=== PATIENT | male | born 1945 | race Caucasian/White ===

== ENCOUNTER → 2017-10-01 13:48 | Outpatient (CLI) | payer MEDICARE, OTHER, SELFPAY ==
[2017-10-01 16:27] LABS: ALB/GLOB Ratio 1.1 RATIO (0.9-2.4); AST(SGOT) 18 U/L (15-37); Alanine Aminotransfer ALT/SGPT 26 U/L (16-61); Albumin, Serum 3.5 g/dL (3.2-5.0); Alkaline Phosphatase 95 U/L (45-117); Anion Gap 7 (5-15); BUN 13 mg/dL (7-18); BUN/Creat Ratio 15.3 RATIO (10-20); Calcium,Total 8.8 mg/dL (8.5-10.1); Chloride 105 mmol/L (98-107); Cholesterol 90 mg/dL (200); Creatinine, Serum 0.85 mg/dL (0.70-1.30); EST Glomerular Filtration Rate 94 mL/min (>60); Est Glom Filt Rate - Afr Amer 114 mL/min (>60); Globulin 3.2 g/dL (2.2-4.2); Glucose 75 mg/dL (74-106); High Density Lipoprotein 35 mg/dL; Potassium 4.5 mmol/L (3.5-5.1); Protein, Total 6.7 g/dL (6.4-8.2); Sodium Level 141 mmol/L (136-145); Triglycerides 242 mg/dL; Very Low Density Lipoprotein 48 mg/dL (5-40)
== END ==
PROVIDERS: Family Provider Family Medicine; PCP Family Medicine; Visit Provider Family Medicine
DX: I25.2 Old myocardial infarction (principal); I10 Essential (primary) hypertension
CPT/HCPCS: 36415; 80053; 80061

== ENCOUNTER → 2018-04-02 07:43 | Outpatient (CLI) | payer MEDICARE, OTHER, SELFPAY ==
[2018-04-01 10:19] VITALS: BMI 24.8
[2018-04-02 09:06] LABS: Cholesterol 102 mg/dL (200); High Density Lipoprotein 39 mg/dL; Triglycerides 78 mg/dL; Very Low Density Lipoprotein 16 mg/dL (5-40)
--- OUTSIDE RECORDS SUMMARY | 2018-06-06 14:44 | XMS RPT_ITS ---
:1945 Author Organization [facility] Care Team Providers Name Role Phone Humphrey Maher Attending Unavailable Brown, Humphrey Referring Unavailable Brown, Humphrey Attending Unavailable Brown, Humphrey Referring Unavailable Brown, Humphrey Primary Care Unavailable Jelly Jin Attending Unavailable Tyson Leroy Attending Unavailable Brown, Humphrey Referring Unavailable Brown, Humphrey Primary Care Unavailable Brown, Humphrey Attending Unavailable Brown, Humphrey Referring Unavailable Brown, Humphrey Primary Care Unavailable Brown, Humphrey Attending Unavailable Brown, Humphrey Referring Unavailable Brown, Humphrey Primary Care Unavailable PROBLEMS PROBLEMS DATE TYPE CONDITION / CODE ATTENDING STATUS SOURCE 04/02/2018 Unknown I25.2 - Old Brown, Humphrey Active [facility] I25.2(ICD-10) Repository 10/01/2017 Unknown I10 - Essential Brown, Humphrey Active [facility] (primary) Community hypertension / Hospital I10(ICD-10) Repository PROCEDURES PROCEDURES No Procedure Records FoundRESULTS RESULTS LIPID PROFILE Collected: 04/02/2018 Status: F Source: [facility] 7:48 AM [facility] REPOSITORY TYPE CODE TESTS RESULT OUT OF RANGE REFERENCE UNITS LAB L501.4900 200 mg/dL Normal CHOL 102 Result Comment: <200 mg/dL Desirable 200-240 mg/dL Borderline >240 mg/dL High Risk LAB L501.5000 mg/dL Normal TRIG 78 Result Comment: The drugs N-Acetylcysteine and Metamizole may falsely depress this assay. Serum Triglycerides Reference Interval Normal <150 mg/dL Borderline high 150 - 199 mg/dL High 200 - 499 mg/dL Very High > or = 500 mg/dL LAB L501.6400 mg/dL Low HDL 39 Result Comment: The drugs N-Acetylcysteine and Metamizole may falsely depress this assay. Reference Range HDL <40 mg/dL Low HDL Cholesterol HDL >or= 60 mg/dL High HDL Cholesterol LAB L501.6500 0-130 mg/dL Normal LDL 47 LAB L501.6600 5-40 mg/dL Normal VLDL 16 Performed By: #### L500.4100 #### [facility] [address] [place], [address] INTERNAL MEDICINE Observed: 04/01/2018 Status: F Source: [place] OFFICE VISIT 12:27 PM [facility] REPOSITORY [facility] [address] [place] [address] [place] [address] OFFICE VISIT Date of Service: 04/01/18 MR#: [id number] Acct: [id number] Name: SERGIO CLIFFORD Rep #: [id number] : 1945 Provider: Humphrey Maher DO Age/Sex: 72/M Location: [facility] Status: Signed Intake Vital Signs04/01/18 Height 5 ft 10 in 04/01/18 Weight: 173 lb 04/01/18 Body Mass Index (BMI) 24.8 04/01/18 Blood Pressure 137/72 H 04/01/18 Blood Pressure Location Lt brachial Intake Visit Reasons: 6 MO FU Chief Complaint: 6 Mo FU Allergies No Known Allergies Allergy (Unverified 04/01/18 10:20) Medications lisinopril 10 mg tablet 10 mg PO QDAY #90 tab 05/08/17 [Rx Confirmed 04/01/18] aspirin 325 mg tablet,delayed release 325 mg PO QDAY 05/22/17 [History Confirmed 04/01/18] clopidogrel 75 mg tablet 75 mg PO QDAY tab 05/22/17 [History Confirmed 04/01/18] metoprolol tartrate 25 mg tablet 25 mg PO BID #180 tab 05/22/17 [Rx Confirmed 04/01/18] pantoprazole 40 mg tablet,delayed release 40 mg PO QDAY 05/22/17 [History Confirmed 04/01/18] albuterol sulfate HFA 90 mcg/actuation aerosol inhaler 2 puff INHALATION Q6H PRN 07/20/17 [History Confirmed 04/01/18] nitroglycerin 0.4 mg sublingual tablet 0.4 mg SUBLINGUAL Q5- 15M PRN #20 tab 12/30/17 [Rx Confirmed 04/01/18] atorvastatin 40 mg tablet 40 mg PO QDAY #90 tab 01/04/18 [Rx Confirmed 04/01/18] allopurinol 300 mg tablet 300 mg PO QDAY #90 tab 01/25/18 [Rx Confirmed 04/01/18] cholecalciferol (vitamin D3) 1,000 unit capsule 3,000 unit PO DAILY cap 04/01/18 [History Confirmed 04/01/18] PFSH Medical History Arthritis (Chronic) 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) 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) COPD (chronic obstructive pulmonary disease) (Chronic) Hypertension (Chronic) Hyperlipidemia (Chronic) Surgical History Presence of stent in coronary artery (Chronic) S/P hernia repair (Acute) History of brain surgery (Chronic) History of left knee surgery (Chronic) History of tonsillectomy (Chronic) Postsurgical percutaneous transluminal coronary angioplasty (PTCA) status (Chronic) H/O local excision of skin lesion (Resolved) Family History Father CVA (cerebral vascular accident) Mother CAD (coronary artery disease) Hx of CABG CHF (congestive heart failure) S/P MVR (mitral valve replacement) Brother COPD (chronic obstructive pulmonary disease) Diabetes Cancer lung Grandfather Colon cancer Social History Smoking Status: Former smoker how long ago did patient quit smokin alcohol intake: never substance use type: does not use what type of physical activity do you participate in: walking frequency: daily HPI HPI Chief Complaint: 6 Mo FU Details: SERGIO CLIFFORD, is a 72 M who presents to the office today for follow up on his medications. ROS Const Constitutional: No chills, fatigue, fever(s), frequent falls, malaise, weakness, sleep problems or change in appetite Eyes Eyes: No blurry vision, change in vision, double vision, discharge or visual disturbances ENT ENT: No abnormal hearing, ear pain, ear pressure, tinnitus or dizziness/vertigo Resp Respiratory: No cough, shortness of breath or wheezing Cardio Cardiology: No chest pain at rest, chest pain with exertion, shortness of breath, dyspnea on exertion, generalized swelling, irregular heart rhythm, lightheadedness, orthopnea, fast heart rate or palpitations Gastro GI: No abdominal pain, change in bowel habits, constipation, diarrhea, nausea/dyspepsia or vomiting Genitourinary Male: No difficulty urinating, burning urination, painful urination, urinary incontinence, urinary frequency, urinary urgency, urinary hesitancy, urinary retention, blood in urine, Frequent nighttime urination/ nocturia, sexual problems, testicle lump or testicle pain Musc Musculoskeletal: No joint pain, back pain, joint swelling, limited range of motion, numbness or tingling Skin Skin: No change in skin color, itching, rash or wounds Breast Breast: No breast lump or breast pain Neuro Neurology: No frequent falls, weakness, visual disturbances, abnormal hearing, numbness, tingling, unsteady gait/balance, dizziness, loss of vision or memory loss Psych Psychiatric: No change in appetite, No memory loss, No anxiety, No depression, No Thoughts of harming yourself/Others Endo Endocrine: No fatigue, heat intolerance, increased thirst/drinking, increased hunger or increased urination Aller/Imm Allergy/Immunologic: No wheezing, itchy eyes or seasonal allergy symptoms Raúl/Lymp Hematologic/Lymphatic: No easy bleeding, easy bruising or enlarged lymph nodes Exam Const General: cooperative, healthy appearing Nutritional Appearance: average body habitus Orientation: oriented x3 Neck Neck: no lymphadenopathy Neck mass: No Thyroid: thyroid normal Resp Effort AND Inspection: symmetric chest movement, normal respiratory effort Auscultation: Bilateral: Clear to Auscultation Cardio Rate: regular rate Rhythm: regular rhythm Musc Thoracic/Lumbar Spine: thoracic and lumbar spine normal to inspection, thoraco-lumbar ROM normal Other: muscle cramps are better, [facility]. Skin General: no rashes or lesions noted Extrem General: no clubbing, cyanosis or edema Psych Appearance: grossly normal Assessment AND Plan Problems 1. Presence of stent in coronary artery Z95.5 PTCA/PETER to LAD and prox to mid LCX 04/11/10; PTCA/PETER of the patent pre existing stent in the prox RCA 01/22/2011 2. COPD (chronic obstructive pulmonary disease) J44.9 3. Essential hypertension I10 4. Hyperlipidemia, unspecified hyperlipidemia type E78.5 5. Muscle cramps at night R25.2 Plan This patient was here for follow-up exam and medication renewal. [facility] They are working up his leg cramps and numbness by first checking his circulation it was okay and I believe the next test he is going through is an EMG to see if the problem is coming from the back which on physical examination I doubt. Actually the patient is doing well lipid screen was ordered medicines were renewed he will be rechecked on a routine six-month basis unless something else becomes a problem. Orders Orders: Plan Detail Follow Up 6 Months Coding Level of Care Code Off vis,est,level 3 Diagnoses Presence of stent in coronary artery Z95.5 COPD (chronic obstructive pulmonary disease) J44.9 Essential hypertension I10 Hypertension type: essential hypertension Hyperlipidemia, unspecified hyperlipidemia type E78.5 Hyperlipidemia type: unspecified Muscle cramps at night R25.2 04/01/18 1227 <Electronically signed by Humphrey Maher DO> Date Humphrey Maher DO Cosigner Signature: Date (if applicable) CC: COMPREHENSIVE METABOLIC Collected: 10/01/2017 Status: F Source: [facility] GOMES 1:53 PM [facility] REPOSITORY TYPE CODE TESTS RESULT OUT OF RANGE REFERENCE UNITS LAB L501.0100 74-106 mg/dL Normal GLU 75 Result Comment: Please note revised GLUCOSE reference range effective 2017. LAB L501.1000 7-18 mg/dL Normal BUN 13 LAB L501.1100 0.70-1.30 mg/dL Normal CREAT,SERUM 0.85 Result Comment: The validity of the calculated GFR AND GFRAA in patients over 70 years has not been determined. Clinical correlation is essential. LAB L501.1110 >60 mL/min Normal EST GFR 94 Result Comment: Non- GFR Calc LAB L501.1115 >60 mL/min Normal EST GFR - AA 114 Result Comment: GFR Calc LAB L501.1300 10-20 RATIO Normal BUN/CRE 15.3 LAB L501.1500 6.4-8.2 g/dL T Normal PROT 6.7 LAB L501.1800 3.2-5.0 g/dL Normal ALB 3.5 LAB L501.1950 2.2-4.2 g/dL Normal GLOB 3.2 LAB L501.2000 0.9-2.4 RATIO Normal A/G 1.1 LAB L501.2200 8.5-10.1 mg/dL CA Normal 8.8 LAB L501.4100 15-37 U/L Normal AST 18 LAB L501.4305 45-117 U/L Normal ALK P 95 LAB L501.4405 16-61 U/L Normal ALT 26 LAB L501.4600 0.20-1.00 mg/dL T Normal BILI 0.30 LAB L501.5300 136-145 mmol/L NA Normal 141 LAB L501.5600 3.5-5.1 mmol/L K Normal 4.5 LAB L501.5900 98-107 mmol/L CL Normal 105 LAB L501.6100 21.0-32.0 mmol/L Normal CO2 29.0 LAB L501.6200 5-15 Normal GAP 7 Performed By: #### L500.4050, L500.4100 #### [facility] [address] [place], [address] LIPID PROFILE Collected: 10/01/2017 Status: F Source: [place] 1:53 PM [facility] REPOSITORY TYPE CODE TESTS RESULT OUT OF RANGE REFERENCE UNITS LAB L501.4900 200 mg/dL Normal CHOL 90 Result Comment: <200 mg/dL Desirable 200-240 mg/dL Borderline >240 mg/dL High Risk LAB L501.5000 mg/dL High TRIG 242 Result Comment: The drugs N-Acetylcysteine and Metamizole may falsely depress this assay. Serum Triglycerides Reference Interval Normal <150 mg/dL Borderline high 150 - 199 mg/dL High 200 - 499 mg/dL Very High > or = 500 mg/dL LAB L501.6400 mg/dL Low HDL 35 Result Comment: The drugs N-Acetylcysteine and Metamizole may falsely depress this assay. Reference Range HDL <40 mg/dL Low HDL Cholesterol HDL >or= 60 mg/dL High HDL Cholesterol LAB L501.6500 0-130 mg/dL Normal LDL 7 LAB L501.6600 5-40 mg/dL High VLDL 48 Performed By: #### L500.4050, L500.4100 #### [facility] [address] [place], [address] INTERNAL MEDICINE Observed: 10/01/2017 Status: F Source: [place] OFFICE VISIT 1:33 PM [facility] REPOSITORY [facility] [address] [place] [address] [place] [address] OFFICE VISIT Date of Service: 10/01/17 MR#: [id number] Acct: [id number] Name: SERGIO CLIFFORD Rep #: [id number] : 1945 Provider: Humphrey Maher DO Age/Sex: 72/M Location: [facility] Status: Signed Intake Vital Signs10/01/17 Height 5 ft 10 in Intake Visit Reasons: est care Chief Complaint: well check Is patient in pain?: No Allergies No Known Allergies Allergy (Unverified 07/20/17 15:29) Medications lisinopril 10 mg tablet 10 mg PO QDAY #90 tab 05/08/17 [Rx Confirmed 07/20/17] aspirin 325 mg tablet,delayed release 325 mg PO QDAY 05/22/17 [History Confirmed 07/20/17] clopidogrel 75 mg tablet 75 mg PO QDAY tab 05/22/17 [History Confirmed 07/20/17] metoprolol tartrate 25 mg tablet 25 mg PO BID #180 tab 05/22/17 [Rx Confirmed 07/20/17] nitroglycerin 0.4 mg sublingual tablet 0.4 mg SUBLINGUAL Q5- 15M PRN 05/22/17 [History Confirmed 07/20/17] pantoprazole 40 mg tablet,delayed release 40 mg PO QDAY 05/22/17 [History Confirmed 07/20/17] atorvastatin 40 mg tablet 40 mg PO QDAY #90 tab 07/11/17 [Rx Confirmed 07/20/17] albuterol sulfate HFA 90 mcg/actuation aerosol inhaler 2 puff INHALATION Q6H PRN 07/20/17 [History Confirmed 07/20/17] allopurinol 300 mg tablet 300 mg PO QDAY #90 tab 07/28/17 [Rx] PFSH Medical History Arthritis (Chronic) 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) Presence of stent in coronary artery (Chronic) 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) COPD (chronic obstructive pulmonary disease) (Chronic) Hypertension (Chronic) Hyperlipidemia (Chronic) History of left knee surgery (Chronic) Surgical History S/P hernia repair (Acute) History of brain surgery (Chronic) History of tonsillectomy (Chronic) Postsurgical percutaneous transluminal coronary angioplasty (PTCA) status (Chronic) H/O local excision of skin lesion (Resolved) Family History Father CVA (cerebral vascular accident) Mother CAD (coronary artery disease) Hx of CABG CHF (congestive heart failure) S/P MVR (mitral valve replacement) Brother COPD (chronic obstructive pulmonary disease) Diabetes Cancer lung Grandfather Colon cancer Social History Smoking Status: Former smoker how long ago did patient quit smokin alcohol intake: never substance use type: does not use what type of physical activity do you participate in: walking frequency: daily HPI HPI Chief Complaint: well check Details: SERGIO CLIFFORD, is a 72 M who presents to the office today for a check up, he has had a lot of muscle cramps in the AM when he gets up from bed. ROS Const Constitutional: No weight change, body ache, chills, fatigue, sleep problems, fever(s), change in appetite, snoring, weakness, frequent falls, headache(s) or excessive sweating Eyes Eyes: No change in vision, eye pain, light sensitivity or blurry vision ENT ENT: No headache(s), abnormal hearing, ear pain, tinnitus, nasal congestion, sore throat or neck pain Resp Respiratory: No snoring, cough, shortness of breath or wheezing Cardio Cardiology: No excessive sweating, chest pain at rest, chest pain with exertion, shortness of breath, dyspnea on exertion, palpitations, orthopnea or lightheadedness Gastro GI: No abdominal pain, change in bowel habits, constipation, diarrhea, vomiting, nausea/dyspepsia or cramping Genitourinary Male: No painful urination, urinary incontinence, urinary frequency, urinary urgency, blood in urine, testicle pain or other Musc Musculoskeletal: Positive for joint pain (shoulders), numbness (feet) and muscle cramps (in the legs every morning. ); no neck pain, abnormal walking, back pain, limited range of motion or tingling Skin Skin: No redness, dry skin, itching, lesions, wounds or rash Neuro Neurology: Positive for numbness (feet); no weakness, frequent falls, headache(s), abnormal hearing, abnormal walking, tingling, abnormal speech, dizziness or memory loss Psych Psychiatric: No change in appetite, No memory loss, No anxiety, No depression, No Thoughts of harming yourself/Others Endo Endocrine: No fatigue, excessive sweating, cold intolerance, increased thirst/drinking, heat intolerance, flushing or increased hunger Aller/Imm Allergy/Immunologic: No wheezing, itchy eyes, hives or seasonal allergy symptoms Raúl/Lymp Hematologic/Lymphatic: No easy bleeding, easy bruising or enlarged lymph nodes Exam Const General: cooperative, healthy appearing Nutritional Appearance: average body habitus Orientation: oriented x3 Neck Neck: no lymphadenopathy Neck mass: No Thyroid: thyroid normal Resp Effort AND Inspection: symmetric chest movement, normal respiratory effort Auscultation: Bilateral: Clear to Auscultation Cardio Rate: regular rate Rhythm: regular rhythm Musc Thoracic/Lumbar Spine: thoracic and lumbar spine normal to inspection, thoraco-lumbar ROM normal Other: Non-specific pain the the right ear, Lots of muscle cramps Skin General: no rashes or lesions noted Extrem General: no clubbing, cyanosis or edema Psych Appearance: grossly normal Assessment AND Plan Problems 1. Essential hypertension I10 2. Hyperlipidemia, unspecified hyperlipidemia type E78.5 3. COPD (chronic obstructive pulmonary disease) J44.9 4. Arthritis M19.90 5. Muscle cramps R25.2 6. Presence of stent in coronary artery Z95.5 PTCA/PETER to LAD and prox to mid LCX 04/11/10; PTCA/PETER of the patent pre existing stent in the prox RCA 01/22/2011 Plan This patient was seen today for checkup. His only significant complaint is severe muscle spasms of his legs but only when he gets up in the morning and start stretching once he moves he does not have that problem. He also also complained about some sharp stabbing pains in the right ear area but on exam I think that is probably simply related to some cervical spine problems. Labs were ordered to evaluate possible electrolyte disturbances causing muscle spasms and I will let him know what those results entailed other than that he is to continue on the same medication. Orders Orders: Plan Detail Follow Up 6 Months Coding Level of Care Code Off vis,est,level 3 Diagnoses Essential hypertension I10 Hypertension type: essential hypertension Hyperlipidemia, unspecified hyperlipidemia type E78.5 Hyperlipidemia type: unspecified COPD (chronic obstructive pulmonary disease) J44.9 Arthritis M19.90 Muscle cramps R25.2 Presence of stent in coronary artery Z95.5 10/01/17 1333 <Electronically signed by Humphrey Maher DO> Date Humphrey Maher DO Cosigner Signature: Date (if applicable) CC: CARDIOLOGY VISIT Observed: 07/20/2017 Status: F Source: [facility] REPORT 4:35 PM [facility] REPOSITORY [facility] [address] [place], [place] [address] [place] [address] OFFICE VISIT Date of Service: 07/20/17 MR#: [id number] Acct: [id number] Name: SERGIO CLIFFORD Rep #: [id number] : 1945 Provider: Tyson Leroy MD Age/Sex: 71/M Location: [facility] Status: Signed HPI HPI Details: SERGIO CLIFFORD, is a 71 M who presents to the office today for for outpatient cardiovascular follow-up of his history of underlying CAD, PCI, superimposed on hyperlipidemia and hypertension. He states overall he has been doing well. He does not complain of classic angina pectoris. He has not had episodes of acute CHF or pulmonary edema. There has been no near syncope or syncope. He notes that he did have an episode of left upper extremity discomfort/tingling sensation. This was after leaning on a windowsill. He states he felt this was more musculoskeletal involving his shoulder. He does not believe this represented any previous cardiovascular symptoms or concerns. He has the [facility] checking his lipid profile. He believes they have been under good control. He also notes the [facility] has diagnosed him with COPD. Intake Vital Signs07/20/17 Height 5 ft 9 in 07/20/17 Weight: 170 lb 07/20/17 Body Mass Index (BMI) 25.1 07/20/17 Blood Pressure 150/64 Intake Visit Reasons: 6 M FU Allergies No Known Allergies Allergy (Unverified 07/20/17 15:29) Medications lisinopril 10 mg tablet 10 mg PO QDAY #90 tab 05/08/17 [Rx Confirmed 07/20/17] allopurinol 300 mg tablet 300 mg PO QDAY 05/22/17 [History Confirmed 07/20/17] aspirin 325 mg tablet,delayed release 325 mg PO QDAY 05/22/17 [History Confirmed 07/20/17] clopidogrel 75 mg tablet 75 mg PO QDAY tab 05/22/17 [History Confirmed 07/20/17] metoprolol tartrate 25 mg tablet 25 mg PO BID #180 tab 05/22/17 [Rx Confirmed 07/20/17] nitroglycerin 0.4 mg sublingual tablet 0.4 mg SUBLINGUAL Q5- 15M PRN 05/22/17 [History Confirmed 07/20/17] pantoprazole 40 mg tablet,delayed release 40 mg PO QDAY 05/22/17 [History Confirmed 07/20/17] atorvastatin 40 mg tablet 40 mg PO QDAY #90 tab 07/11/17 [Rx Confirmed 07/20/17] albuterol sulfate HFA 90 mcg/actuation aerosol inhaler 2 puff INHALATION Q6H PRN 05/07/18 [History Confirmed 07/20/17] [facility] Medical History 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) Presence of stent in coronary artery (Chronic) 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) COPD (chronic obstructive pulmonary disease) (Chronic) Hypertension (Chronic) Hyperlipidemia (Chronic) History of left knee surgery (Chronic) Surgical History History of brain surgery (Chronic) History of tonsillectomy (Chronic) Postsurgical percutaneous transluminal coronary angioplasty (PTCA) status (Chronic) H/O local excision of skin lesion (Resolved) Family History Father CVA (cerebral vascular accident) Mother CAD (coronary artery disease) Hx of CABG CHF (congestive heart failure) S/P MVR (mitral valve replacement) Brother COPD (chronic obstructive pulmonary disease) Diabetes Social History Smoking Status: Former smoker alcohol intake: never ROS Const Const: Negative for fatigue, weakness, weight gain, weight loss, frequent falls or excessive sweating Eyes Eyes: Negative for change in vision, blurry vision or transient loss of vision ENT ENT: Negative for dizziness or balance problems Cardio Chest Pain: No Palpitations: No Edema: None Muscle aches with walking: None Additional Details: Patient denies CP, but has noted some numbness to Lt UP x2. Resp Respiratory: Positive for SOB with activity (slight, breathing at baseline); negative for SOB at rest GI GI: Negative vomiting or vomiting blood/hematemesis : Negative for hematuria Musc Musc: Positive for muscle aches/ myalgia (Bilat hips,pedals and back pain. Reports muscle cramps to bilat LE/Pedals am) and joint pain (HX Arthritis); negative for balance problems or muscle weakness Skin Skin: Negative non-healing lesions or rash Neuro Neuro: Negative for weakness, blurry vision, dizziness, lightheadedness, frequent falls or orthostatic symptoms Raúl Hematologic/Lymphatic: Negative for easy bleeding Endo Endo: Negative for fatigue or excessive sweating Psych Psych: Negative for anxiety or depression Allergy Allergy/Immunology: Negative for hives, Negative for rash Cardiology Exam Const Appearance: cooperative, healthy appearing, comfortable, no acute distress, well developed and well groomed Nutritional Appearance: average body habitus Orientation: alert, awake and oriented x3 Head Head: normal to inspection, normocephalic and atraumatic Ears: hearing grossly normal bilaterally Nose: external nose normal Face and Sinus: face symmetric Mouth: oral mucosae normal Eyes General: appearance normal, both eyes and all related structures Eyelids: eyelids normal Conjunctivae: conjunctivae normal Pupils: PERRL EOM: EOM intact bilaterally Neck Neck: normal visual inspection and full ROM Carotids: normal carotid upstroke Chest Chest inspection: normal inspection of the chest and symmetric chest movement Auscultation: Bilateral: Clear to Auscultation Cardio Palpation: normal PMI Rate: regular rate Rhythm: regular rhythm Heart sounds: S1 normal, S2 normal and positive S4 GI GI: normal to inspection, bowel sounds present, soft and no hepatosplenomegaly Neuro General: alert, awake and oriented x3 Skin Skin: no rashes or lesions noted Extremities Pulses: Normal: Right Radial Pulse, Left Radial Pulse Lower Extremity Edema: None: Bilateral Psych Psychological: normal affect Supplemental Info His last transthoracic echocardiogram was on 03/12/2012. The results are as noted below. Interpretation Summary The study was technically difficult. Segmental dysfunction with preserved ejection fraction (see wall motion). The estimated ejection fraction is 55 %. The left atrium is mildly enlarged. There is mild mitral annular calcification. Extension of the mitral annular calcification onto the base of the posterior mitral valve leaflet. Mild (1+) mitral valve insufficiency. Mild tricuspid valve insufficiency. Aortic sclerosis, no stenosis. Mild (1+) eccentric pulmonic valve insufficiency. Right ventricular systolic pressure estimated to be 31 mmHg. He did have a pharmacologic stress nuclear imaging study performed on 11/28/2016. The results are as noted below. Impression: 1. Rest and stress SPECT Cardiolite nuclear imaging demonstrate myocardial perfusion changes appearing compatible with an area of previous myocardial injury/infarction involving portions of the distal anterior, anterior apical, and septal apical segments with no myocardial perfusion changes consider diagnostic for associated stress- induced myocardial ischemia. 2. The gated Cardiolite study reports an LVEF of 57%. Last diagnostic cardiac catheterization was performed on 01/22/2011 at [facility]. At that time he had a patent pre-existing stent in 85% stenosis in the LAD; a patent pre-existing stent in the proximal LCx to the proximal first OM; a patent pre-existing stent in the proximal to mid RCA; the left ventricle had mild hypokinesis of the anterior, anteroapical, inferoapical lockwood as well as the mid inferior wall being akinetic with an overall LVEF of 45%. His last PTCA/stent procedure was performed on 01/22/2011 at [facility]. At that time he had a patent pre-existing stent in the LAD with an fractional flow reserve of 0.89; a patent pre-existing stent in the proximal mid LCx with a fractional flow reserve of 0.95; and successful stenting and angioplasty of the patent pre-existing stent and a 60% ostial stenosis in the proximal RCA. Assessment AND Plan 1. Atherosclerosis of [place] coronary artery of [place] heart without angina pectoris I25.10 PTCA/PETER to LAD and prox to mid LCX 04/11/10; PTCA/PETER of the patent pre existing stent in the prox RCA 01/22/2011 Plan At the present time he appears to be doing well overall. His symptoms appear to be atypical with respect to his underlying CAD diagnosis. He will monitor for any concerns. Otherwise she will continue medical management. It was not felt he required further cardiac diagnostic or therapeutic intervention at this time. 2. Presence of stent in coronary artery Z95.5 PTCA/PETER to LAD and prox to mid LCX 04/11/10; PTCA/PETER of the patent pre existing stent in the prox RCA 01/22/2011 Plan His previous PCI procedure, etc., is as noted above. Again he appears to be doing well overall without any ongoing issues related to his underlying CAD process. He will monitor for any concerns. In the interim he will continue medical management. 3. Hyperlipidemia, unspecified hyperlipidemia type E78.5 Plan A copy of his [facility] lipid labs will be requested for continuity of care. 4. Essential hypertension I10 Plan He was asked to monitor his blood pressures at home. If his blood pressure trends are elevated then he may need further adjustment of his antihypertensive therapy. Plan Detail Additional Comments Otherwise he will be scheduled for an outpatient visit in the future. Thank you for allowing me to participate in the care of your patient. Please don't hesitate to call if any issues arise. This note was generated using a voice recognition system and there may be incorrect words, spelling or punctuation that were not noted when reviewing the office note prior to saving. Follow Up 9 Months (PFM) 07/20/17 (Copy of [facility] lipid labs) Coding Level of Care Code Off vis,est,level 3 Diagnoses Atherosclerosis of [place] coronary artery of [place] heart without angina pectoris I25.10 [place] vs. transplanted heart: [place] heart Presence of stent in coronary artery Z95.5 Hyperlipidemia, unspecified hyperlipidemia type E78.5 Hyperlipidemia type: unspecified Essential hypertension I10 Hypertension type: essential hypertension Coding Level of Care Code Off vis,est,level 3 Diagnoses Atherosclerosis of [place] coronary artery of [place] heart without angina pectoris I25.10 [place] vs. transplanted heart: [place] heart Presence of stent in coronary artery Z95.5 Hyperlipidemia, unspecified hyperlipidemia type E78.5 Hyperlipidemia type: unspecified Essential hypertension I10 Hypertension type: essential hypertension 07/20/17 1635 <Electronically signed by Tyson Leroy MD> Date Tyson Leroy MD Cosigner Signature: Date (if applicable) CC: Humphrey Maher DO ALLERGIES ALLERGIES DATE TYPE / CODE NAME / CODE REACTION SEVERITY SOURCE 04/01/2018 Drug No Known Unknown [place] Count Includes [facility] Allergy/4160 Allergies/F00 [facility] [address]27(SNOMED [id number](RXNOR Repository CT) M) ENCOUNTERS ENCOUNTERS ADMIT/DISCHARGE ACCOUNT ADMITTING ENCOUNTER LOCATION SOURCE NUMBER CLASS 04/02/2018 [id number] Ambulatory [address] ing:LAB Repository 04/01/2018/ [id number] Ambulatory BMSBuilding:[place] 9 [place] [place] 10/01/2017 [id number] Ambulatory [address] ing:LAB Repository 10/01/2017/ [id number] Ambulatory BMSBuilding:B [place] 8 8 [place] [place] 07/20/2017/ [id number] Ambulatory BMSBuilding:B [place] 8 7 MS.[facility] Repository 06/15/2017 [id number] Ambulatory BMSBuilding:B [place] 8 [place] [place] PAYERS PAYERS ENCOUNTER GUARANTOR PAYER SUBSCRIBER SOURCE 04/02/2018 SERGIO Arteaga [id number] Primary SERGIO R BYRDDOB: [place] Insurance[place]IC[id number] B[place] Number: Hospital [id number]: ([id number] Repository [phone] () Date:2018-04-02 04/02/2018 Secondary SERGIO R BYRDDOB: [place] Insurance:HUMANA [id number] Number: Repository [id number] Date:3715-60-26TD [address] [address]MA: 04/02/2018 Tertiary NOT GIVENUNK [place] Insurance:SELF PAY [facility] Hospital Number: Effective Repository Date:2018-04-02 04/01/2018 SERGIO R [id number] Primary SERGIO R BYRDDOB: [place] Insurance:MEDICARE [id number] [place] PART A BPolicy Number: Hospital [address]Lmz: (385) [id number] Repository [phone] () Date:2017-10-05 04/01/2018 Secondary SERGIO R BYRDDOB: [place] Insurance:HUMANA [id number] Number: Repository [id number] Date:9625-06-13PL [address] [address]AL: 04/01/2018 Tertiary NOT GIVENUNK [place] Insurance:SELF PAY [facility] Hospital Number: Effective Repository Date:2018-03-22 10/01/2017 SERGIO R [id number] Primary SERGIO R BYRDDOB: [place] Insurance:MEDICARE [id number] [place] PART A BPolicy Number: Hospital [id number]: 330 [id number] Repository [phone] () Date:2017-10-01 10/01/2017 Secondary SERGIO R BYRDDOB: [place] Insurance:HUMANA [id number] Number: Repository [id number] Date:3448-83-51ET [address] [address]KI: 10/01/2017 Tertiary NOT GIVENUNK [place] Insurance:SELF PAY [facility] Hospital Number: Effective Repository Date:2017-10-01 10/01/2017 SERGIO R [id number] Primary SERGIO R BYRDDOB: [place] Insurance[id number] BPolicy Number: Hospital [id number]: 330 [id number] Repository [phone] () Date:2017-07-28 10/01/2017 Secondary SERGIO R BYRDDOB: [place] Insurance:HUMANA [id number] Number: Repository [id number] Date:2698-13-27DG [address] [address]NL: 10/01/2017 Tertiary NOT GIVENUNK [place] Insurance:SELF PAY [facility] Hospital Number: Effective Repository Date:2017-10-01 07/20/2017 SERGIO R [id number] Primary SERGIO R BYRDDOB: [place] Insurance[place]MEDICARE [id number] BPolicy Number: Hospital [id number]: 330 [id number] Repository [phone] () Date:2017-03-05 07/20/2017 Secondary SERGIO R BYRDDOB: [place] Insurance:HUMANA [id number] Number: Repository [id number] Date:2038-69-71CU [address] [address]ZL: 07/20/2017 Tertiary NOT GIVENUNK [place] Insurance:SELF PAY [facility] Hospital Number: Effective Repository Date:2017-03-05 06/15/2017 Sergio [id number] Primary Sergio SkeltonB: [place] Insurance:MEDICARE [id number] [place] PART A BPolicy Number: [facility] [id number]: (503) [id number] Repository [phone] () Date:2017-06-15 06/15/2017 Secondary Sergio Kirk: [place] Insurance:HUMANA [id number] [facility] Hospital Number: Repository [id number] Date:[id number] [address]WA: 06/15/2017 Tertiary NOT GIVENUNK [place] Insurance:SELF PAY [facility] Hospital Number: Effective Repository Date:2017-06-15
== END ==
PROVIDERS: Family Provider Family Medicine; PCP Family Medicine; Referring Provider Family Medicine; Visit Provider Family Medicine
DX: I25.2 Old myocardial infarction (principal)
CPT/HCPCS: 36415; 80061

== ENCOUNTER → 2018-06-02 09:46 | Outpatient (CLI) | payer MEDICARE, OTHER, SELFPAY ==
[2018-05-24 14:50] VITALS: BMI 24.8
--- NOTE | 2018-06-02 09:48 | CDU_ITS ---
Reason For Study: BRUIT Rt. Velocities/BP Lt. Velocities/BP Prox CCA 110/25 cm/sec. Prox CCA 120/35 cm/sec. Mid CCA 77/19 cm/sec. Mid CCA 119/39 cm/sec. Dist CCA 78/20 cm/sec. Dist CCA 144/38 cm/sec. Prox ICA 101/24 cm/sec. Prox ICA 115/33 cm/sec. Mid ICA 207/71 cm/sec. Mid ICA 266/94 cm/sec. Dist ICA 1043/38 cm/sec. Dist ICA 331/94 cm/sec. Rt. ICA/CCA = 2.7. Lt. ICA/CCA = 2.8. Prox ECA 149/22 cm/sec. Prox ECA 164/24 cm/sec. Rt. Vert. 71/26 cm/sec. Lt. Vert. 60/18 cm/sec. Right Extracranial There is heterogeneous, irregular atherosclerotic plaque noted in the right common carotid artery. There is heterogeneous, irregular atherosclerotic plaque noted in the right internal carotid artery. There is heterogeneous, irregular atherosclerotic plaque noted in the right external carotid artery. Antegrade flow is noted in the right vertebral artery. Left Extracranial There is heterogeneous, irregular atherosclerotic plaque noted in the left common carotid artery. There is heterogeneous, irregular atherosclerotic plaque noted in the left internal carotid artery. The atherosclerotic plaque causes acoustic shadowing. There is heterogeneous, irregular atherosclerotic plaque noted in the left external carotid artery. Antegrade flow is noted in the left vertebral artery. Procedure Carotid Duplex [id number]. Exam performed in department. 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
== END ==
PROVIDERS: Family Provider Family Medicine; PCP Family Medicine; Referring Provider Internal Medicine Cardiovascular Disease; Visit Provider Internal Medicine Cardiovascular Disease
DX: R09.89 Other specified symptoms and signs involving the circulatory and respiratory systems (principal)
CPT/HCPCS: 93880

== ENCOUNTER → 2018-06-04 13:28 | Outpatient (CLI) | payer MEDICARE, OTHER, SELFPAY ==
[2018-06-04 12:21] VITALS: BMI 24.7
[2018-06-04 14:26] LABS: Absolute Neutrophil Count 6.5 X10^3/uL (2.0-7.7); Basophil# 0.04 X10^3/uL; Basophil% 0.4 % (0-1); Eosinophil# 0.29 X10^3/uL; Hematocrit 41.2 % (40-54); Hemoglobin 13.9 g/dl (13.0-16.5); Lymphocyte % 20.4 % (19-41); Mean Corp Hgb Conc 33.7 g/gl (32-36); Mean Platelet Vol. 10.9 fl (6.2-12.0); Monocyte# 0.92 X10^3/uL; Monocyte% 9.4 % (0-10); Neutrophil # 6.53 X10^3/uL (2.7-7.7); Neutrophil % 66.6 % (47-70); Platelet Count 230 K/mm3 (150-450); RBC Distribution Width CV 13.3 % (11.6-14.6); Red Blood Count 4.48 M/mm3 (4.6-6.2); White Blood Count 9.8 K/mm3 (4.4-11.0)
[2018-06-04 14:30] LABS: POSITIVE COUNT NO; POSITIVE DIFFERENTIAL NO; POSITIVE MORPHOLOGY NO
[2018-06-04 14:54] LABS: Anion Gap 3 (5-15); BUN 12 mg/dL (7-18); Calcium,Total 8.6 mg/dL (8.5-10.1); Chloride 104 mmol/L (98-107); Creatinine, Serum 0.75 mg/dL (0.70-1.30); EST Glomerular Filtration Rate 110 mL/min (>60); Est Glom Filt Rate - Afr Amer 133 mL/min (>60); Glucose 82 mg/dL (74-106); Potassium 4.4 mmol/L (3.5-5.1); Sodium Level 135 mmol/L (136-145)
== END ==
PROVIDERS: Family Provider Family Medicine; PCP Family Medicine; Referring Provider Surgery; Visit Provider Surgery
DX: I65.29 Occlusion and stenosis of unspecified carotid artery (principal); I10 Essential (primary) hypertension
CPT/HCPCS: 36415; 80048; 85025

== ENCOUNTER → 2018-06-10 13:43 | Outpatient (CLI) | payer MEDICARE, OTHER, SELFPAY ==
[2018-06-04 12:21] VITALS: BMI 24.7
--- NOTE | 2018-06-10 13:44 | CT_ITS ---
STUDY: CTA NECK WITH CONTRAST REASON FOR EXAM: Male, 72 years old. Bilateral carotid stenosis. RADIATION DOSAGE (If Supplied By Facility): CTDIvol = ( 21.46 ) mGy, DLP = ( 562.19 ) mGycm TECHNIQUE: CT angiography with multi-detector data acquisition was performed from the aortic arch to the skull base following intravenous administration of 100mL IV Isovue 370. MIP images were reconstructed from the axial data set. Post-processing of the angiographic images was performed, with multiplanar reformation and 3D reconstruction. Individualized dose optimization techniques were used for this CT. COMPARISON: None. FINDINGS: AORTIC ARCH: There is atherosclerotic calcific plaque formation of the aortic arch and great vessels arising from the aortic arch, without a hemodynamically significant stenosis. There is a normal origin of the brachiocephalic, left common carotid, and left subclavian arteries atherosclerotic plaque formation at the origin of the left internal carotid artery as well as the left subclavian artery causing etky-od-rrzkpjio degree of stenosis. RIGHT CAROTID ARTERIES: Normal right common carotid artery (CCA). Normal right common carotid bulb. There is severe atherosclerotic plaque formation of the origin of the right internal carotid artery with a near complete occlusion. Normal visualized cervical portion of the right internal carotid artery. Normal origin of the right external carotid artery (ECA). LEFT CAROTID ARTERIES: There is atherosclerotic plaque formation of the common carotid artery, but without a hemodynamically significant stenosis. Normal left common carotid bulb. There is severe atherosclerotic plaque formation of the origin of the left internal carotid artery with a near complete occlusion. Normal visualized cervical portion of the left internal carotid artery. Normal origin of the left external carotid artery (ECA). VERTEBRAL ARTERIES: There is enhancement within the bilateral vertebral arteries with a small left vertebral artery, and a dominant right vertebral artery. Atherosclerotic plaque formation in the midportion of the left vertebral artery. CT/CTA Neck W/WO Contrast IMPRESSION: High-grade stenosis at the origin and proximal portions of both the right and left internal carotid arteries. Electronically Signed: Arjun Shaver at 13:57 EDT , Service support ,
== END ==
PROVIDERS: Family Provider Family Medicine; PCP Family Medicine; Referring Provider Surgery; Visit Provider Surgery
DX: I65.29 Occlusion and stenosis of unspecified carotid artery (principal)
CPT/HCPCS: 70498; Q9967

== ENCOUNTER → 2018-12-16 08:43 | Outpatient (CLI) | payer MEDICARE, OTHER, SELFPAY ==
[2018-11-25 12:58] VITALS: BMI 25.2
[2018-12-16 14:22] LABS: Cholesterol 133 mg/dL (200); High Density Lipoprotein 39 mg/dL; Triglycerides 113 mg/dL; Very Low Density Lipoprotein 23 mg/dL (5-40)
== END ==
PROVIDERS: Family Provider Family Medicine; PCP Family Medicine; Visit Provider Family Medicine
DX: E78.5 Hyperlipidemia, unspecified (principal)
CPT/HCPCS: 36415; 80061

== ENCOUNTER → 2019-09-29 09:40 | Outpatient (CLI) | payer MEDICARE, OTHER, SELFPAY ==
[2019-09-23 08:32] VITALS: BMI 25.2
--- NOTE | 2019-09-29 09:41 | CDU_ITS ---
Reason For Study: carotid stenosis Rt. Velocities/BP Lt. Velocities/BP Prox CCA 76.0/14.7 cm/sec. Prox CCA 102.8/24.3 cm/sec. Mid CCA 76.0/18.6 cm/sec. Mid CCA 113.8/27.9 cm/sec. Dist CCA 81.2/18.6 cm/sec. Dist CCA 119.3/27.9 cm/sec. Prox ICA 81.2/14.7 cm/sec. Prox ICA 115.6/27.9 cm/sec. Mid ICA 208.0/42.2 cm/sec. Mid ICA 295.1/85.0 cm/sec. Dist ICA 112.6/20.4 cm/sec. Dist ICA 323.5/94.4 cm/sec. Rt. ICA/CCA = 2.7. Lt. ICA/CCA = 2.8. Prox ECA 99.5/8.2 cm/sec. Prox ECA 202.8/26.7 cm/sec. Rt. Vert. 73.6/18.8 cm/sec. Lt. Vert. 40.9/7.7 cm/sec. Right Extracranial There is heterogeneous, irregular atherosclerotic plaque noted in the right common carotid artery. There is heterogeneous, irregular atherosclerotic plaque noted in the right internal carotid artery. There is heterogeneous, irregular atherosclerotic plaque noted in the right external carotid artery. Antegrade flow is noted in the right vertebral artery. Left Extracranial There is heterogeneous, irregular atherosclerotic plaque noted in the left common carotid artery. There is heterogeneous, irregular atherosclerotic plaque noted in the left internal carotid artery. There is heterogeneous, irregular atherosclerotic plaque noted in the left external carotid artery. Antegrade flow is noted in the left vertebral artery. Procedure Carotid Duplex 69294. The exam was diagnostic. Exam performed in department. Interpretation Summary Irregular heterogenous plaque at the proximal right internal carotid artery with 50 to 69% stenosis. <50% stenosis right external carotid Extensive calcific plaque with shadowing at the proximal left internal carotid artery with greater than 70% stenosis. >50% stenosis left external carotid Patent and antegrade bilateral vertebrals Findings are similar to the previous examination of June 02, 2018 with slight progression of disease involving the left external carotid artery Ordering Physician: Tyson Leory Performed By: Branden Julien RVT
== END ==
PROVIDERS: PCP Family Medicine; Referring Provider Internal Medicine Cardiovascular Disease; Visit Provider Internal Medicine Cardiovascular Disease
DX: I65.23 Occlusion and stenosis of bilateral carotid arteries (principal)
CPT/HCPCS: 93880

== ENCOUNTER → 2019-10-26 09:23 | Outpatient (CLI) | payer MEDICARE, OTHER, SELFPAY ==
[2019-10-26 09:07] VITALS: BMI 25.2
[2019-10-26 12:53] LABS: ALB/GLOB Ratio 1.1 RATIO (0.9-2.4); AST(SGOT) 18 U/L (15-37); Alanine Aminotransfer ALT/SGPT 31 U/L (16-61); Albumin, Serum 3.9 g/dL (3.2-5.0); Alkaline Phosphatase 82 U/L (45-117); Anion Gap 5 (5-15); BUN 15 mg/dL (7-18); BUN/Creat Ratio 16.8 RATIO (10-20); Calcium,Total 9.2 mg/dL (8.5-10.1); Chloride 102 mmol/L (98-107); Cholesterol 124 mg/dL (200); Creatinine, Serum 0.89 mg/dL (0.70-1.30); EST Glomerular Filtration Rate 89 mL/min (>60); Est Glom Filt Rate - Afr Amer 108 mL/min (>60); Globulin 3.6 g/dL (2.2-4.2); Glucose 92 mg/dL (74-106); High Density Lipoprotein 38 mg/dL; Protein, Total 7.5 g/dL (6.4-8.2); Sodium Level 137 mmol/L (136-145); Triglycerides 127 mg/dL; Very Low Density Lipoprotein 25 mg/dL (5-40)
== END ==
PROVIDERS: PCP Family Medicine; Referring Provider Family Medicine; Visit Provider Family Medicine
DX: I65.23 Occlusion and stenosis of bilateral carotid arteries (principal); I10 Essential (primary) hypertension
CPT/HCPCS: 36415; 80053; 80061

== ENCOUNTER 2021-04-25 12:49 | Outpatient (CLI) | payer MEDICARE, OTHER, SELFPAY ==
--- NOTE | 2021-04-25 12:54 | ECHOD_ITS ---
Reason For Study: CAD/ASHD Procedure This was a 2D Doppler, Color Flow transthoracic echocardiogram. The study was technically difficult. Exam performed in department. Left Ventricle Normal LV size. Segmental dysfunction with preserved ejection fraction (see wall motion). The estimated ejection fraction is 55 %. Diastolic function is indeterminate. Infero-Basal: Hypokinetic. Basal inferoseptal: Hypokinetic. Mid-Inferior: Hypokinetic. Mid-inferoseptal : Hypokinetic. Anterior [place] : Not visualized. Inferior [place] : Not visualized. Right Ventricle Normal RV size. Normal systolic function. Atria The left atrium is mildly enlarged. Normal right atrium. No doppler evidence for ASD. Mitral Valve There is moderate mitral annular calcification. Extension of the mitral annular calcification on the base of the posterior mitral valve leaflet. Mild (1+) mitral valve insufficiency. Tricuspid Valve Normal tricuspid valve. Mild tricuspid valve insufficiency. Unable to estimate RV systolic pressure/pulmonary artery pressure due to technically difficult study. Aortic Valve Trisinus/trileaflet aortic valve. Mild diffuse aortic valve thickening. Mild focal aortic valve calcification. Aortic sclerosis, no stenosis. Pulmonic Valve The pulmonic valve is not well visualized. Mild (1+) pulmonic valve insufficiency. Great Vessels Normal sized aortic root. Pericardium/Pleural No pericardial effusion. MMode/2D Measurements & Calculations LVIDd: 5.3 cm IVSd: 1.1 cm Ao root diam: 3.2 cm LVIDs: 3.0 cm LVPWd: 1.1 cm RVDd: 3.3 cm FS: 43.2 % LAV(MOD-bp): 96.2 ml LA A4 area: 25.0 cm2 LA dimension(2D): 5.2 cm LAV(MOD-bp) Indexed: 50.3 ml/m2 LAV(MOD-sp2): 92.4 ml LAV(MOD-sp4): 90.6 ml RA A4 area: 13.5 cm2 Time Measurements MV dec time: 0.26 sec Doppler Measurements & Calculations MV E max xavier: 64.1 cm/sec Lat Peak E' Xavier: 8.8 cm/sec Med Peak E' Xavier: 6.3 cm/sec MV A max xavier: 46.2 cm/sec E/E' lat: 7.3 E/E' med: 10.2 MV E/A: 1.4 Ao V2 max: 173.4 cm/sec LV V1 max: 57.1 cm/sec PA V2 max: 77.5 cm/sec Ao max P.0 mmHg LV V1 max P.3 mmHg Ao V2 mean: 119.5 cm/sec LV V1 mean P.68 mmHg Ao mean P.3 mmHg LV V1 mean: 39.3 cm/sec Ao V2 VTI: 40.2 cm LV V1 VTI: 14.3 cm ECHO/Echo Complete Interpretation Summary The study was technically difficult. Segmental dysfunction with preserved ejection fraction (see wall motion). The estimated ejection fraction is 55 %. The left atrium is mildly enlarged. There is moderate mitral annular calcification. Extension of the mitral annular calcification on the base of the posterior mitr al valve leaflet. Mild (1+) mitral valve insufficiency. Mild tricuspid valve insufficiency. Aortic sclerosis, no stenosis. Mild (1+) pulmonic valve insufficiency. Unable to estimate RV systolic pressure/pulmonary artery pressure due to techni guanaco difficult study. Diastolic function is indeterminate. Ordering Physician: Tyson Leroy Referring Physician: Humphrey Maher Performed By: Marifer Gold RDCS, RVT
== END 2021-04-25 23:59 | disposition home or self-care (01) ==
LOC: CVS 12:52
PROVIDERS: PCP Family Medicine; Referring Provider Internal Medicine Cardiovascular Disease; Visit Provider Internal Medicine Cardiovascular Disease
DX: I25.10 Atherosclerotic heart disease of native coronary artery without angina pectoris (principal)
CPT/HCPCS: 93306

== ENCOUNTER 2021-06-28 07:49 | Outpatient (CLI) | payer MEDICARE, OTHER, SELFPAY ==
--- NOTE | 2021-06-28 07:51 | CT_ITS ---
STUDY: CT ABDOMEN AND PELVIS WITH CONTRAST REASON FOR EXAM: Male, 75 years old. Evaluate for inguinal hernia RADIATION DOSAGE (If Supplied By Facility): CTDIvol = ( 17.30 ) mGy, DLP = ( 855.40 ) mGycm TECHNIQUE: Transaxial images were obtained from the dome of the diaphragm to the symphysis pubis without oral contrast. IV 100mL Isovue-300 was administered. Sagittal and coronal images were reconstructed. Individualized dose optimization techniques were used for this CT. COMPARISON: None. FINDINGS: The visualized lung bases are unremarkable. Coronary artery calcification. Normal liver. Normal gallbladder and extrahepatic biliary system. Normal spleen. Normal pancreas. Normal bilateral adrenal glands. Subcentimeters cyst in the anterior midportion of the right kidney. There is a 2.7 cm x 2.4 cm cyst in the anterior upper pole of the left kidney. Small cyst is seen along its posterior aspect. There is a small hiatal hernia. Diffuse circumferential wall thickening of the terminal ileum with increased markings in the surrounding peritoneal fat. This is in keeping with a terminal ileitis. Crohn''s disease should be ruled out. There are multiple colonic diverticula consistent with diverticulosis. The appendix is visualized and appears normal. There is diffuse atherosclerotic calcification of the abdominal aorta and its major visceral branches, without a demonstrated aneurysm. Normal inferior vena cava. Normal retroperitoneum. Normal urinary bladder. Small right hydrocele. Normal abdominal wall. Normal osseous structures. CT/Abdomen/Pelvis W IV Cont ONLY IMPRESSION: Diffuse circumferential wall thickening of the terminal ileum with increased markings in the surrounding peritoneal fat. An inflammatory process should be ruled out. Crohn''s disease should be considered. Sigmoid diverticulosis. Left renal cysts. Electronically Signed: Arjun Shaver MD at 9:03 EDT ,
[2021-06-28 08:06] LABS: CREATININE FINGERSTICK 0.9 mg/dL (0.70-1.30); EGFR FINGERSTICK > 60.0000 mL/min (>60)
== END 2021-06-28 23:59 | disposition home or self-care (01) ==
PROVIDERS: PCP Family Medicine; Referring Provider Surgery; Visit Provider Surgery
DX: K40.90 Unilateral inguinal hernia, without obstruction or gangrene, not specified as recurrent (principal); R10.9 Unspecified abdominal pain
CPT/HCPCS: 74177; Q9967

== ENCOUNTER → 2021-07-12 | Outpatient (CLI) | payer MEDICARE, OTHER, SELFPAY ==
--- NOTE | 2021-07-12 09:46 | US_ITS ---
EXAM: US SCROTUM CLINICAL INDICATION: Tender, heavy right scrotum TECHNIQUE: Realtime ultrasound of the testicles was performed with grayscale and Color Doppler analysis. This report was created using [employer] report [employer] technology. COMPARISON: None. FINDINGS: TESTES: Homogeneous, symmetric size. The right is 4.3 cm x 3.4 cm x 2.2 cm. The left is 3.9 cm x 3.2 cm x 1.8 cm. EPIDIDYMIDES: Right epididymal enlargement with 3.2 cm x 3.8 cm x 1.7 cm epididymal cyst projecting superiorly into the right inguinal canal. Enlarged left epididymis, mild, 2.4 cm x 3.1 cm x 1.6 cm. Normal color Doppler flow pattern in the epididymis. SCROTUM: HYDROCELES: Moderate right and small left hydroceles. No varicocele. OTHER FINDINGS: US/Testicular with Arterial Flow IMPRESSION: 1. Bilateral simple hydroceles, larger on the left. 2. Cystic replacement of left epididymal head with a cyst projecting into the left inguinal canal. 3. No herniated bowel was noted in the right scrotum on exam with Valsalva maneuvers. Electronically Signed: Alisson Zuleta MD at 6:24 EDT ,
--- NOTE | 2021-07-12 09:46 | CDU_ITS ---
Reason For Study: Carotid stenosis Rt. Velocities/BP Lt. Velocities/BP Prox CCA 86.5/18.6 cm/sec. Prox CCA 73.6/22.5 cm/sec. Mid CCA 78.6/20 cm/sec. Mid CCA 86.4/24.3 cm/sec. Dist CCA 57.8/17.3 cm/sec. Dist CCA 66.3/18.8 cm/sec. Prox ICA 95.6/17.3 cm/sec. Prox ICA 49.9/11.5 cm/sec. Mid ICA 236.9/52.7 cm/sec. Mid ICA 228.7/68.1 cm/sec. Dist ICA 3.01 cm/sec. Dist ICA 437.1/92.6 cm/sec. Prox ECA 85.2/5.6 cm/sec. Lt. ICA/CCA = 5.94. Rt. Vert. 75.4/18.8 cm/sec. Prox ECA 253.1/20.4 cm/sec. Lt. Vert. 70.4/13.9 cm/sec. Right Extracranial There is heterogeneous, irregular atherosclerotic plaque noted in the right common carotid artery. There is heterogeneous, irregular atherosclerotic plaque noted in the right internal carotid artery. There is heterogeneous, irregular atherosclerotic plaque noted in the right external carotid artery. Antegrade flow is noted in the right vertebral artery. Left Extracranial There is heterogeneous, irregular atherosclerotic plaque noted in the left common carotid artery. There is heterogeneous, irregular atherosclerotic plaque noted in the left internal carotid artery. The atherosclerotic plaque causes acoustic shadowing. There is heterogeneous, irregular atherosclerotic plaque noted in the left external carotid artery. Antegrade flow is noted in the left vertebral artery. Procedure Carotid Duplex [id number]. This is a Carotid Duplex examination using B-mode, color flow and specral Doppler. Preliminary report to Isamar KAMINSKI. Exam performed in department. VL/Carotid Duplex Ultrasound Interpretation Summary Irregular plaque at the proximal right internal carotid artery with greater mark n 70% stenosis Less than 50% stenosis right external carotid artery Irregular calcific plaque with shadowing at the proximal left internal carotid artery with greater than 70% stenosis of the left internal carotid artery Greater than 50% stenosis left external carotid artery Patent and antegrade vertebral arteries bilaterally Findings suggest progression of disease of the right internal carotid artery wi th no change in the left internal carotid artery albeit with increased velocities on the left from the previous examination of September 29, 2019 Ordering Physician: Mejia Dubose Referring Physician: Humphrey Maher Performed By: Jeanine Reid RVT
== END | disposition home or self-care (01) ==
LOC: CVS 09:44
PROVIDERS: PCP Family Medicine; Referring Provider Surgery; Visit Provider Surgery
DX: I65.23 Occlusion and stenosis of bilateral carotid arteries (principal); N50.819 Testicular pain, unspecified
CPT/HCPCS: 76870; 93880; 93976

== ENCOUNTER 2021-08-15 10:39 | Outpatient (CLI) | payer MEDICARE, OTHER, SELFPAY | END 2021-08-15 23:59 | disposition home or self-care (01) | LOC: PSN 10:40 | PROVIDERS: PCP Family Medicine; Referring Provider Physician Assistant Medical; Visit Provider Physician Assistant Medical | DX: R00.2 Palpitations (principal) | CPT/HCPCS: 93225; 93226 ==

== ENCOUNTER → 2021-08-22 | Outpatient (CLI) | payer MEDICARE, OTHER, SELFPAY ==
--- NOTE | 2021-08-22 11:07 | STRESSREP_ITS ---
Stress Test Report Date: 08-22-2021 Procedure: Exercise tolerance test/imaging study Indications: Shortness of breath/dyspnea on exertion; CAD; PCI; preoperative c ardiovascular evaluation Consent: Per the patient Procedure: The patient exercised on a Lopez protocol for 6 minutes completing Stage II achieving a peak heart rate of 125 bpm (85% predicted maximal heart rate) with a peak blood pressure 200/82 mmHg and a peak MET capacity of 7 METs. The baseline ECG demonstrated normal sinus rhythm; PVCs. The peak exercise ECG demonstrated no obvious ECG changes. There was an occasional PVC pretest, during exercise, and recovery and a rare ventricular couplet during exercise and an isolated ventricular triplet during exercise. The functional capacity was considered good. There was no complaint of chest discomfort during exercise or recovery. The examination was discontinued secondary to dyspnea. Impression: 1. Technically adequate (percent predicted maximal heart rate greater than 85%) exercise tolerance test 2. Peak exercise ECG with no obvious ECG change 3. There was an occasional PVC pretest, during exercise, and recovery and a rare ventricular couplet during exercise and an isolated ventricular triplet during exercise 4. Nuclear images pending Myocardial perfusion imaging study: Technique: The patient was injected with 11.9 mCi of technetium 99m Cardiolite and subsequently rest SPECT Cardiolite nuclear imaging was obtained in the horizontal long, vertical long, and short axis views. The patient exercised on a Lopez protocol for 6 minutes completing Stage II achieving a peak heart rate of 125 bpm (85% predicted maximal heart rate) with a peak blood pressure 200/82 mmHg and a peak MET capacity of 7 METs. The patient was injected with 33.3 mCi of technetium 99m Cardiolite and subsequently stress SPECT Cardiolite nuclear imaging was obtained in the horizontal long, vertical long, and short axis views. A gated Cardiolite study at peak stress was obtained. Interpretation: Rest and stress SPECT Cardiolite nuclear imaging status post realignment, normalization, and attenuation correction, demonstrates the appearance of diminished absence of myocardial perfusion/tracer uptake in portions of the distal anterior/anteroapical segments with post myocardial perfusion changes appearing somewhat more prominent in the distal anterior apical areas. There is diminished end-systolic thickening and brightening in the aforementioned areas. The gated Cardiolite study demonstrates myocardial thickening and inward wall motion. The reported LVEF is 59%. Impression: 1. Rest and stress SPECT Cardiolite nuclear imaging demonstrate myocardial perfusion changes compatible with an area of previous myocardial injury/inf arction in portions of the distal anterior/anteroapical areas with post stress myocardial perfusion changes appearing compatible with an element of robb- infarct related myocardial ischemia. 2. The gated Cardiolite study reports an LVEF of 59%. This note was generated with [employer] software. It may contain incorrect words, spelling, and punctuation that were not noted in checking the note before signing.
== END | disposition home or self-care (01) ==
LOC: CVS 07:00
PROVIDERS: PCP Family Medicine; Referring Provider Physician Assistant Medical; Visit Provider Physician Assistant Medical
DX: I25.10 Atherosclerotic heart disease of native coronary artery without angina pectoris (principal); R06.00 Dyspnea, unspecified
CPT/HCPCS: 78452; 93017; A9500; A4216

== ENCOUNTER 2021-09-24 08:24 | Day surgery (SDC) | payer MEDICARE, OTHER, SELFPAY ==
--- NOTE | 2021-09-04 15:50 | RAD_ITS ---
INDICATION: Dyspnea on exertion EXAMINATION/TECHNIQUE: X-RAY - XR Chest 2 Views COMPARISON: None. FINDINGS: LINES/DEVICES: None. LUNGS: Slightly hyperexpanded upper lungs. No pulmonary edema or focal airspace consolidation. No sizable pleural effusion. No pneumothorax detected. Mildly elevated right hemidiaphragm. MEDIASTINUM AND CARDIOVASCULAR STRUCTURES: Heart size within normal limits. Left coronary artery stent and/or calcifications. Atherosclerotic calcifications along aorta. BONES AND SOFT TISSUES: No acute findings. RAD/Chest PA and Lateral IMPRESSION: COPD and atherosclerotic disease. Electronically Signed: Patel Carter MD at 0:31 EDT ,
[2021-09-04 16:17] LABS: Absolute Lymphocyte Count 2.88 X10^3/uL (0.83-4.51); Absolute Neutrophil Count 7.3 X10^3/uL (2.0-7.7); Basophil# 0.08 X10^3/uL; Basophil% 0.7 % (0-1); Eosinophil# 0.53 X10^3/uL; Eosinophils% 4.5 % (0-5); Hematocrit 39.4 % (40-54); Hemoglobin 13.4 g/dL (13.0-16.5); Lymphocyte # 2.88 X10^3/ul (0.83-4.51); Lymphocyte % 24.3 % (19-41); Mean Corpuscular Hgb 31.2 pg (27.0-32.0); Mean Corpuscular Volume 91.8 fL (80-94); Mean Platelet Vol. 10.7 fl (6.2-12.0); Monocyte# 1.01 X10^3/uL; Monocyte% 8.5 % (0-10); NRBC Flagged by Analyzer 0 % (0-5); Neutrophil # 7.28 X10^3/uL (2.7-7.7); Neutrophil % 61.6 % (47-70); Platelet Count 215 K/mm3 (150-450); RBC Distribution Width CV 13.5 % (11.6-14.6); RBC Distribution Width SD 45.1 fl (35.1-43.9); Red Blood Count 4.29 M/mm3 (4.6-6.2); White Blood Count 11.8 K/mm3 (4.4-11.0)
[2021-09-04 16:26] LABS: Prothrombin Time (Protime)PT. 13.1 SECONDS (11.7-14.9)
[2021-09-04 16:27] LABS: Partial Thromboplast Time 32.2 Seconds (24.1-36.2)
[2021-09-04 16:43] LABS: Anion Gap 4 (5-15); BUN 13 mg/dL (7-18); BUN/Creat Ratio 14.4 RATIO (10-20); Chloride 102 mmol/L (98-107); EST Glomerular Filtration Rate 88 mL/min (>60); Est Glom Filt Rate - Afr Amer 106 mL/min (>60); Glucose 101 mg/dL (74-106); Potassium 4.1 mmol/L (3.5-5.1); Sodium Level 134 mmol/L (136-145)
--- NOTE | 2021-09-23 09:50 | PCM.HP.BLA ---
History and Physical Date of Admission: 09/24/21 [facility] [address] [place], [place] [address] OFFICE VISIT Date of Service:? 09/04/21 MR#: [id number] Acct: [id number] Name:SERGIO GARCIA Rep #: [id number] : 1945 Provider: ?DAYANARA Rogers Age/Sex:? 76/M [place] [facility] [place] Status: Signed HPI [facility] History of Present Illness Details: Sergio Clifford is a 76 year old gentleman that presents here today for a cardiovascular follow up to discuss a diagnostic heart cath. He has a history of underlying CAD, PCI, hyperlipidemia, hypertension, and carotid artery disease-followed by Dr. Chano George of [facility] peripheral vascular surgery. He also was evaluated by Dr. George from peripheral vascular surgery in January 2021.? At that time the recommendation was for continued noninvasive follow-up of his carotid artery disease. He states he is in need of inguinal hernia repair.? This is to be performed locally.? He was initially cleared to undergo the surgery however his hernia repair had been placed on hold until he was evaluated for his peripheral vascular disease for his carotid artery disease.? He has since been cleared from this.? However a few weeks ago he called our office with concerns over shortness of breath feeling lightheaded and weak.? He also had increased shortness of breath and palpitations.? His blood pressure was also on the higher end.? Because of this he underwent a stress test which was abnormal.? It did demonstrate robb-infarct related to myocardial ischemia.? Because of this would like to pursue a diagnostic heart catheterization. Intake Vital Signs ? 07/25/2211:49 09/04/2213:43 09/04/2213:43 Height 5 ft 6 in 5 ft 6 in 5 ft 6 in Weight: ? ? 178 lb BMI ? ? 28.7 BP ? ? 136/71 H Blood Pressure Location ? ? Lt brachial Position ? ? Sitting Respiration ? ? 18 Pulse ? ? 64 Pulse Source ? ? Monitor Pulse Oximetry (%) ? ? 94 Intake Visit Reasons:?PER MMM Manager Pool Required: No Is patient in pain?: No Allergies bee pollen Allergy (Unknown, Verified 09/04/21 14:43) Unknown Medications aspirin 325 mg tablet,delayed release (Ecotrin) 325 mg PO QDAY 05/22/17 [History Confirmed 09/04/21] clopidogrel 75 mg tablet (Plavix) 75 mg PO QDAY 05/22/17 [History Confirmed 09/04/21] pantoprazole 40 mg tablet,delayed release 40 mg PO QDAY 05/22/17 [History Confirmed 07/24/21] albuterol sulfate 90 mcg/actuation aerosol inhaler (ProAir HFA) 2 puff inhalation Q6H PRN 07/20/17 [History Confirmed 09/04/21] cholecalciferol (vitamin D3) 25 mcg (1,000 unit) capsule 3,000 unit PO DAILY 04/01/18 [History Confirmed 09/04/21] nitroglycerin 0.4 mg sublingual tablet 0.4 mg sublingual Q5-15M PRN chest pain #25 tabs 06/14/19 [Rx Confirmed 09/04/21] tiotropium bromide 2.5 mcg/actuation mist for inhalation (Spiriva Respimat) 2 inh inhalation QAM 01/23/21 [History Confirmed 09/04/21] atorvastatin 20 mg tablet 20 mg PO QDAY #90 tabs 03/26/21 [Rx Confirmed 09/04/21] metoprolol tartrate 25 mg tablet 25 mg PO BID #180 tabs 04/12/21 [Rx Confirmed 09/04/21] lisinopril 20 mg tablet 20 mg PO QDAY #90 tabs 04/16/21 [Rx Confirmed 09/04/21] allopurinol 300 mg tablet 300 mg PO QDAY #90 tabs 07/19/21 [Rx Confirmed 09/04/21] PFSH Medical History?(Updated 09/04/21 @ 15:25 by Jelly Rogers PA, PA) Arthritis Atherosclerotic heart disease of qagan [place] coronary artery without angina pectoris Carotid stenosis, bilateral COPD (chronic obstructive pulmonary disease) Essential hypertension Hyperlipidemia Hypertension Old myocardial infarction Surgical History? H/O local excision of skin lesion History of brain surgery History of left knee surgery History of tonsillectomy Postsurgical percutaneous transluminal coronary angioplasty (PTCA) status Presence of stent in coronary artery (~11/09/11) S/P hernia repair Family History? Father CVA (cerebral vascular accident)Mother CAD (coronary artery disease) Hx of CABG CHF (congestive heart failure) S/P MVR (mitral valve replacement)Brother COPD (chronic obstructive pulmonary disease) Diabetes Cancer ?? ? lungGrandfather Colon cancer Social History? Smoking Status:? Former smoker how long ago did patient quit smoking:? 1997 alcohol intake:? never substance use type:? does not use caffeine:? Yes what type of physical activity do you participate in:? walking frequency:? daily ROS Const Const: Negative for fatigue, weakness, headache(s), frequent falls, excessive sweating, weight gain or weight loss Eyes Eyes: Negative for blind spots, loss of peripheral vision, transient loss of vision, blurry vision, change in vision or double vision ENT ENT: Negative for headache(s), dizziness, tinnitus, Nosebleed/epistaxis or balance problems Cardio Chest Pain: No Palpitations: No Edema: None Muscle aches with walking: None Resp Respiratory: Positive for SOB with activity; Negative for SOB at rest, SOB orthopnea\SOB lying down or Cough GI GI: Negative nausea, vomiting, heartburn, bloating, vomiting blood/hematemesis, bright, red blood in stools or black,tarry stools : Negative for hematuria Musc Musc: Negative for muscle aches/ myalgia, muscle weakness, joint pain or balance problems Skin Skin: Negative rash or wounds Neuro Neuro: Negative for dizziness, lightheadedness, near syncope, syncope, orthostatic symptoms, frequent falls, headache(s), weakness, confusion, memory loss, restless legs, blurry vision or double vision Raúl Hematologic/Lymphatic: Negative for easy bleeding or easy bruising Endo Endo: Negative for fatigue, cold intolerance, heat intolerance or excessive sweating Psych Psych: Negative for anxiety or depression Allergy Allergy/Immunology: Negative for rash Cardiology Exam Const Appearance: cooperative, healthy appearing, comfortable, no acute distress, well developed and well groomed Nutritional Appearance: overweight Orientation: alert, awake and oriented x3 Head Head: normal to inspection, normocephalic and atraumatic Ears: hearing grossly normal bilaterally Nose: external nose normal Face and Sinus: face symmetric Eyes Eyelids: eyelids normal Conjunctivae: conjunctivae normal Pupils: PERRL EOM: EOM intact bilaterally Neck Neck: normal visual inspection and full ROM Carotids: bruit Bilateral Chest Chest inspection: normal inspection of the chest, symmetric chest movement and normal respiratory effort Auscultation: Bilateral: Clear to Auscultation Cardio Palpation: normal PMI Rate: regular rate Rhythm: regular rhythm Heart sounds: S1 normal and S2 normal GI GI: normal to inspection, soft and bowel sounds present Neuro General: patient alert, patient awake, patient oriented x3 and moves all extremities Skin Skin: no rashes or lesions noted Extremities Pulses: Normal: Right Radial Pulse and Left Radial Pulse Lower Extremity Edema: None: Bilateral Psych Psychological: normal affect Supplemental Info Supplemental Information Carotid duplex ultrasound from 06/02/2018: Interpretation Summary Irregular calcific plague at the proximal right internal and external carotid arteries. 50-69% stenosis right internal carotid, closer to the 69% range <50% stenosis right external carotid Extensive calcific plague in the left proximal common carotid and mid common carotid arteries >70% stenosis left internal carotid <50% stenosis left external carotid Patent and antegrade vertebrals bilaterally Carotid duplex study: 09/29/2019 Interpretation Summary Irregular heterogenous plaque at the proximal right internal carotid artery with 50 to 69% stenosis. <50% stenosis right external carotid Extensive calcific plaque with shadowing at the proximal left internal carotid artery with greater than 70% stenosis. >50% stenosis left external carotid Patent and antegrade bilateral vertebrals Findings are similar to the previous examination of June 02, 2018 with slight progression of disease involving the left external carotid artery Neck CTA from 06/10/2018: IMPRESSION: High-grade stenosis at the origin and proximal portions of both the right and left internal carotid arteries. Echocardiogram: 03/12/2012 Interpretation Summary The study was technically difficult. Segmental dysfunction with preserved ejection fraction (see wall motion). The estimated ejection fraction is 55 %. The left atrium is mildly enlarged. There is mild mitral annular calcification. Extension of the mitral annular calcification onto the base of the posterior mitral valve leaflet. Mild (1+) mitral valve insufficiency. Mild tricuspid valve insufficiency. Aortic sclerosis, no stenosis. Mild (1+) eccentric pulmonic valve insufficiency. Right ventricular systolic pressure estimated to be 31 mmHg. Echocardiogram: 04-25-2021 Interpretation Summary The study was technically difficult. ? Segmental dysfunction with preserved ejection fraction (see wall motion). The estimated ejection fraction is 55 %. The left atrium is mildly enlarged. There is moderate mitral annular calcification. Extension of the mitral annular calcification on the base of the posterior mitral valve leaflet. Mild (1+) mitral valve insufficiency. Mild tricuspid valve insufficiency. Aortic sclerosis, no stenosis. Mild (1+) pulmonic valve insufficiency. Unable to estimate RV systolic pressure/pulmonary artery pressure due to technically difficult study. Diastolic function is indeterminate. Stress Test Report: Date: 11/28/2016 Procedure: Pharmacologic stress nuclear imaging study Indications: Shortness of breath/dyspnea; CAD; status post PCI Consent: Per the patient Procedure: The patient underwent pharmacologic (Regadenoson) evaluation with a peak heart rate of 101 bpm (66% predicted maximal heart rate) with a peak blood pressure 152/92 mmHg. The baseline ECG demonstrated normal sinus rhythm.? The peak pharmacologic ECG demonstrated no obvious ECG changes. There was a rare PVC in recovery. There was no report of chest discomfort during pharmacologic infusion or recovery. The examination was discontinued secondary to completion of protocol. Impression: 1.? Pharmacologic (Regadenoson) evaluation 2.? Peak pharmacologic ECG with no obvious ECG changes 3.? Nuclear images pending Myocardial perfusion imaging study: Technique: The patient was injected with 11.2 mCi of technetium 99m Cardiolite and subsequently rest SPECT Cardiolite nuclear imaging was obtained in the horizontal long, vertical long, and short axis views. The patient underwent pharmacologic (Regadenoson) evaluation with a peak heart rate of 101 bpm? (66% predicted maximal heart rate) with a peak blood pressure 152/92 mmHg. the patient was injected with 33.3 mCi of technetium 99m Cardiolite and subsequently stress SPECT Cardiolite nuclear imaging was obtained in the horizontal long, vertical long, and short axis views.? A gated Cardiolite study at peak stress was obtained. Interpretation: Rest and stress SPECT Cardiolite nuclear imaging status post realignment, normalization, and attenuation correction, demonstrates areas of extra cardiac/gastrointestinal tracer uptake near the inferior segments.? There is notation of diminished absence of tracer uptake in portions of the distal anterior, anteroapical, and septal apical segments.? This is without change if he can change between rest and stress.? There are similar type findings on the resting and stress polar map images.? There is diminished end systolic thickening and brightening in the aforementioned areas.? The gated Cardiolite study suggests inward wall motion and myocardial thickening.? The reported LVEF is 57%.? The aforementioned findings appear compatible with an area of previous myocardial injury/infarction with no myocardial perfusion changes consider diagnostic for associated stress-induced myocardial ischemia. Impression: 1.? Rest and stress SPECT Cardiolite nuclear imaging demonstrate myocardial perfusion changes appearing compatible with an area of previous myocardial injury/infarction involving portions of the distal anterior, anterior apical, and septal apical segments with no myocardial perfusion changes consider diagnostic for associated stress-induced myocardial ischemia. 2.? The gated Cardiolite study reports an LVEF of 57%. Stress Test Report Date: 08-22-2021 Procedure: Exercise tolerance test/imaging study Indications: Shortness of breath/dyspnea on exertion; CAD; PCI; preoperative cardiovascular evaluation Consent: Per the patient Procedure: The patient exercised on a Lopez protocol for 6 minutes completing Stage II achieving a peak heart rate of 125 bpm (85% predicted maximal heart rate) with a peak blood pressure 200/82 mmHg and a peak MET capacity of 7 METs. The baseline ECG demonstrated normal sinus rhythm; PVCs.? The peak exercise ECG demonstrated no obvious ECG changes. There was an occasional PVC pretest, during exercise, and recovery and a rare ventricular couplet during exercise and an isolated ventricular triplet during exercise.? The functional capacity was considered good. There was no complaint of chest discomfort during exercise or recovery. The examination was discontinued secondary to dyspnea. Impression: 1.? Technically adequate (percent predicted maximal heart rate greater than 85%) exercise tolerance test 2.? Peak exercise ECG with no obvious ECG change 3.? There was an occasional PVC pretest, during exercise, and recovery and a rare ventricular couplet during exercise and an isolated ventricular triplet during exercise 4.? Nuclear images pending Myocardial perfusion imaging study: Technique: The patient was injected with 11.9 mCi of technetium 99m Cardiolite and subsequently rest SPECT Cardiolite nuclear imaging was obtained in the horizontal long, vertical long, and short axis views. The patient exercised on a Lopez protocol for 6 minutes completing Stage II achieving a peak heart rate of 125 bpm (85% predicted maximal heart rate) with a peak blood pressure 200/82 mmHg and a peak MET capacity of 7 METs. The patient was injected with 33.3 mCi of technetium 99m Cardiolite and subsequently stress SPECT Cardiolite nuclear imaging was obtained in the horizontal long, vertical long, and short axis views.? A gated Cardiolite study at peak stress was obtained. Interpretation: Rest and stress SPECT Cardiolite nuclear imaging status post realignment, normalization, and attenuation correction, demonstrates the appearance of diminished absence of myocardial perfusion/tracer uptake in portions of the distal anterior/anteroapical segments with post myocardial perfusion changes appearing somewhat more prominent in the distal anterior apical areas.? There is diminished end-systolic thickening and brightening in the aforementioned areas.? The gated Cardiolite study demonstrates myocardial thickening and inward wall motion.? The reported LVEF is 59%. Impression: 1.? Rest and stress SPECT Cardiolite nuclear imaging demonstrate myocardial perfusion changes compatible with an area of previous myocardial injury/infarction in portions of the distal anterior/anteroapical areas with post stress myocardial perfusion changes appearing compatible with an element of robb-infarct related myocardial ischemia. 2.? The gated Cardiolite study reports an LVEF of 59%. Cardiac cath: 01/22/2011 Impression: Severe single vessel coronary artery disease. Patent pre-existing stent and 85% stenosis in the LAD. Patent pre-existing stent in the proximal LCx to proximal first obtuse marginal artery. Patent pre-existing stent in the proximal to mid RCA. The left ventricular ejection fraction was 45%. Mild hypokinesis of the anterior, anteroapical and inferoapical wall of the left ventricle. Mid inferior left ventricular akinesis. Plan: Optimal medical therapy of the patient's disease. Aggressive risk factor modification. Interventional Cardiology opinion for further evaluation with IVUS and / or FFR of the LAD I RCA with possible PCI Results discussed with patient, patients family and dial printer (Flavio Young M.D.). PCI: 01/22/2011 Impression: Patent pre-existing stent in the LAD. (FFR 0.89) Patent pre-existing stent in the proximal to the mid LCx. (0.95) Successful stenting and successful angioplasty of the patent pre-existing stent and 60% ostial stenosis in the proximal RCA. Patent pre-existing stent in the mid RCA. Plan: Begin an exercise program. Clopidogrel 75 mg PC BID x 7 days then QD Optimal medical therapy of the patient?s disease. Labs: ?? ? No Data to Display Diagnostics: ?? ? Echocardiogram ? Stress Test NM ? Stress Test ? Chest X-Ray ? Pulmonary: ?? ? No Data to Display Assessment and Plan Assessment and Plan (1) Atherosclerotic heart disease of qagan [place] coronary artery without angina pectoris: ?Status:?Chronic ?Qualifiers: ?[place] vs. transplanted heart:?q[place] heart? Qualified Code(s):?I25.10 - Atherosclerotic heart disease of q[place] coronary artery without angina pectoris ?Comment: PTCA/PETER to LAD and prox to mid LCX 04/11/10;? PTCA/PETER of the patent pre existing stent in the prox RCA 01/22/2011 ?Plan: With patient's abnormal stress test would like to pursue a diagnostic heart catheterization.? Patient is agreeable with this.? For now he will continue with his metoprolol, lisinopril, complete a grill, and atorvastatin and aspirin.? Currently at this time he does not have any further chest pain. (2) Essential hypertension: ?Status:?Chronic ?Plan: Blood pressure is controlled under current medications.? Will not make any adjustments. (3) Hyperlipidemia: ?Status:?Chronic ?Qualifiers: ?Hyperlipidemia type:?unspecified? Qualified Code(s):?E78.5 - Hyperlipidemia, unspecified ?Plan: These are managed at the [place] he will continue with current moderate intensity statin. ? ? ? Orders: Orders Left Heart Cath/COR/LV Percut 09/04/21 E78.5 - Hyperlipidemia, unspecified, I10 - Essential (primary) hypertension, I25.10 - Atherosclerotic heart disease of q[place] coronary artery without angina pectoris, R94.39 - Abnormal result of other cardiovascular function study ? Basic Metabolic Profile (BMP) 09/04/21 E78.5 - Hyperlipidemia, unspecified, I10 - Essential (primary) hypertension, I25.10 - Atherosclerotic heart disease of q[place] coronary artery without angina pectoris, R94.39 - Abnormal result of other cardiovascular function study ? Partial Thromboplast Time 09/04/21 E78.5 - Hyperlipidemia, unspecified, I10 - Essential (primary) hypertension, I25.10 - Atherosclerotic heart disease of [place] coronary artery without angina pectoris, I65.23 - Occlusion and stenosis of bilateral carotid arteries, R94.39 - Abnormal result of other cardiovascular function study ? Prothrombin Time w/INR 09/04/21 E78.5 - Hyperlipidemia, unspecified, I10 - Essential (primary) hypertension, I25.10 - Atherosclerotic heart disease of [place] coronary artery without angina pectoris, I65.23 - Occlusion and stenosis of bilateral carotid arteries, R94.39 - Abnormal result of other cardiovascular function study ? CBC W/Diff, Automated 09/04/21 E78.5 - Hyperlipidemia, unspecified, I10 - Essential (primary) hypertension, I25.10 - Atherosclerotic heart disease of q[place] coronary artery without angina pectoris, R94.39 - Abnormal result of other cardiovascular function study ? Chest PA and Lateral 09/04/21 E78.5 - Hyperlipidemia, unspecified, I10 - Essential (primary) hypertension, I25.10 - Atherosclerotic heart disease of q[place] coronary artery without angina pectoris, R94.39 - Abnormal result of other cardiovascular function study ?Patient Instructions: Your procedure is schedule for 09/24 at 1000 with arrival of 0830 Nothing to eat or drink after midnight With a small sip of water take your morning medications. You will need a electric screw driver operator.? If you need a stent you will spend the night. Get your labs and CXR done this week. Plan Details Follow Up: ? ? 6 Months (MMM, cancel appt next month with [facility]) Coding Level of Care Code Off vis,est,level 3 Diagnoses Atherosclerotic heart disease of qagan [place]ag[place] coronary artery without angina pectoris? I25.10 ? ? ? [place] vs. transplanted heart: qagan [place] heart Essential hypertension? I10 Hyperlipidemia? E78.5 ? ? ? Hyperlipidemia type: unspecified Coding Level of Care Code Off vis,est,level 3 Diagnoses Atherosclerotic heart disease of qagan [place] coronary artery without angina pectoris? I25.10 ? ? ? [place] vs. transplanted heart: qagan [place] heart Essential hypertension? I10 Hyperlipidemia? E78.5 ? ? ? Hyperlipidemia type: unspecified 09/05/21 1455 <Electronically signed by Jelly NICHOLE> Date Jelly NICHOLE Cosigner Signature: Date (if applicable) CC:? Dr. Humphrey Maher, DO ~ Assessment & Plan Addt'l Comments I have re-examined the patient. There are no clinical changes since date of exam
[2021-09-23 11:12] VITALS: BMI 28.7
--- NOTE | 2021-09-24 12:11 | CL.D_ITS ---
Patient Name: NIKKO BARAJAS Study Date: 09/24/2021 Performing: Tyson Leroy MD Ht: 66.14 inches 168 cm : 1945 Wt: 178.57 lbs 81 kg Age: 76 Gender: male BSA: 1.91 PROCEDURE(S) PERFORMED DC02-(84791)C/COR CLINICAL PROFILE AND INDICATIONS Indications: Suspected CAD, Pre-Operative Evaluation Heart Failure: None Stress/Imaging Date: 08/22/2021tress Test with SPECT MPI: Positive Intermediate Risk Angina Classification Anginal Classification w/in 2 Weeks: Anginal Equivalent Dyspnea CAD Presentations: Other: dyspnea on exertion CONCLUSIONS Elevated Left Ventricular End Diastolic Pressure (mild) [place] Multivessel CAD RECOMMENDATIONS Risk factor modification Medical therapy Staged percutaneous intervention (s/p completion of non cardiac surgery) Case discussed / reviewed with Dr. Vance of Interventional Cardiology DESCRIPTION OF PROCEDURE The patient arrived to the procedure lab. The risks and benefits of the procedure as well as a full d escription of our services here and current unavailability of surgical backup were fully explained to the patient and/or their significant other prior to the catheterization. The Timeout was completed, verifying the correct patient and procedure. The patient's procedural site was prepped and draped in the usual fashion. Local anesthetic was given subcutaneously to right groin region with Lidocaine 2%. Using a modified Seldinger technique, arterial access was obtained via the right femoral artery, a 4 Fr sheath was inserted Left Coronary Artery selective angiography was performed in multiple views us ing a 4 Fr. JL5 catheter. Right Coronary Artery selective angiography was then performed in multiple views using a 4 Fr. 3DRC catheter. LV to AO pullback pressures were then recorded w/ 3DRC.The arteria l sheath was pulled and manual compression applied until hemostasis is achieved. CORONARY ANGIOGRAPHY DOMINANCE: Right Dominant LEFT HEART ASSESSMENT Left Ventricular Ejection Fraction: Not assessed Elevated Left Ventricular End Diastolic Pressure LVEDP: 16 mmHg LEFT MAIN: distal: eccentric: 25 % Stenosis LEFT ANTERIOR DESCENDING ARTERY: PROX LAD: Previously placed stent is patent MID LAD: Previously placed stent has an instent 75 % restenosis DISTAL LAD: Previously placed stent is patent CIRCUMFLEX ARTERY: PROX CIRC: Previously placed stent has an instent 75 % restenosis MID CIRC: Previously placed stent is patent RIGHT CORONARY ARTERY: PROX RCA: Previously placed stent is patent MID RCA: Previously placed stent is patent COMPLICATIONS No Complications PROCEDURE MEDICATIONS Versed 2 mg IV Fentanyl 50 mcg IV Fentanyl 50 mcg IV Oxygen: 2 L/min via nasal cannula SUMMARY OF HEMODYNAMIC DATA Time AIR REST ECG 08:53:45 AO 180/63 (106) SA 11:04:08 LV 180/-5, 13 11:15:04 LV 184/-3, 16 11:15:11 LVp 176/-12, 17 11:15:17 AOp 171/58 (102) 11:15:22 Signed By Tyson Leroy MD On 09/24/2021 12:10:17 Tyson Leroy MD
== END 2021-09-24 15:45 | disposition home or self-care (01) ==
LOC: CLSP 08:25
PROVIDERS: Physician Assistant Medical; PCP Family Medicine; Referring Provider Internal Medicine Cardiovascular Disease; Visit Provider Internal Medicine Cardiovascular Disease
DX: R06.02 Shortness of breath (principal); I77.9 Disorder of arteries and arterioles, unspecified; I65.23 Occlusion and stenosis of bilateral carotid arteries; R94.39 Abnormal result of other cardiovascular function study; Z87.891 Personal history of nicotine dependence; I49.3 Ventricular premature depolarization; R00.2 Palpitations; I10 Essential (primary) hypertension; E78.5 Hyperlipidemia, unspecified; R06.09 Other forms of dyspnea; I25.10 Atherosclerotic heart disease of native coronary artery without angina pectoris; Z95.5 Presence of coronary angioplasty implant and graft; Z82.49 Family history of ischemic heart disease and other diseases of the circulatory system
CPT/HCPCS: 36415; 71046; 80048; 85025; 85610; 85730; 93454; 99152; 99153; C1769; C1894

== ENCOUNTER → 2021-10-17 | Outpatient (CLI) | payer MEDICARE, OTHER, SELFPAY ==
--- NOTE | 2021-10-17 12:45 | CT_ITS ---
EXAM: CT ANGIOGRAPHY NECK WITHOUT AND WITH INTRAVENOUS CONTRAST CLINICAL INDICATION: Bilateral carotid artery stenosis TECHNIQUE: Routine carotid CT angiography protocol was performed without and with intravenous contrast. Nascet criteria using the distal ICAs for comparison were used for evaluation of stenoses. This CT exam was performed using one or more of the following dose reduction techniques: automated exposure control, adjustment of the mA and/or kV according to patient size, and/or use of iterative reconstruction technique. This report was created using App[employer] report generation technology. MIP reconstructed images were created and reviewed. CONTRAST: IV 100mL Isovue-370 COMPARISON: 06/10/2018 FINDINGS: VASCULATURE: RIGHT COMMON CAROTID ARTERY: Unremarkable. No occlusion or significant stenosis. No dissection. RIGHT INTERNAL CAROTID ARTERY: There are calcifications in the carotid bulbs bilaterally. There is heavy calcification at the origin of the right internal carotid artery the vessel narrowed greater than 80%. Stenosis also stable from the reference exam. RIGHT EXTERNAL CAROTID ARTERY: Unremarkable. No occlusion. RIGHT VERTEBRAL ARTERY: Unremarkable. No occlusion or significant stenosis. No dissection. LEFT COMMON CAROTID ARTERY: Unremarkable. No occlusion or significant stenosis. No dissection. LEFT INTERNAL CAROTID ARTERY: There is high-grade stenosis of the proximal left internal carotid artery with the vessel narrowed greater than 85% due to calcific plaque. This is unchanged from the reference examination. LEFT EXTERNAL CAROTID ARTERY: Unremarkable. No occlusion. LEFT VERTEBRAL ARTERY: Unremarkable. No occlusion or significant stenosis. No dissection. GREAT VESSELS OF AORTIC ARCH: Unremarkable. Normal anatomy, patent. NECK: BONES/JOINTS: Unremarkable. SOFT TISSUES: Unremarkable. LUNG APICES: Clear. CAROTID STENOSIS REFERENCE USING NASCET CRITERIA: % ICA stenosis = (1 - narrowest ICA diameter/diameter of distal cervical ICA) x 100. Mild - <50% stenosis. Moderate - 50-69% stenosis. Severe - 70-94% stenosis. Near occlusion - 95-99% stenosis. Occluded - 100% stenosis. CT/CTA Neck W/WO Contrast IMPRESSION: Severe high-grade stenoses of the proximal internal carotid arteries bilaterally due to calcific plaque which is stable from the reference examination. There has been no significant change. Electronically Signed: Paulino Buchanan MD at 17:20 EDT ,
[2021-10-17 13:21] LABS: CREATININE FINGERSTICK < 0.9 mg/dL (0.70-1.30); EGFR FINGERSTICK > 60.0000 mL/min (>60)
== END | disposition home or self-care (01) ==
LOC: CT 12:44
PROVIDERS: PCP Family Medicine; Referring Provider Surgery; Visit Provider Surgery
DX: Z01.812 Encounter for preprocedural laboratory examination (principal); I65.23 Occlusion and stenosis of bilateral carotid arteries
CPT/HCPCS: 70498; Q9967

== ENCOUNTER 2021-11-11 09:27 | Inpatient (IN) | payer MEDICARE, OTHER, SELFPAY ==
--- NOTE | 2021-11-05 12:46 | RAD_ITS ---
STUDY: X-RAY CHEST REASON FOR EXAM: Male, 76 years old. Preop for hip surgery TECHNIQUE: PA and lateral views of the chest. COMPARISON: 09/04/2021 FINDINGS: Lungs are hyperexpanded with chronic interstitial changes, no superimposed acute pulmonary process. Normal size heart. Normal mediastinum and timothy. Normal visualized pulmonary arteries. There is atherosclerotic calcification of the aortic arch with tortuosity. Normal visualized thoracic spine. Normal visualized ribs, clavicles, and shoulders. There is no demonstrated abnormality of the visualized soft tissue structures of the upper abdomen. RAD/Chest PA and Lateral IMPRESSION: Hyperexpanded lungs with chronic interstitial changes, no superimposed acute pulmonary process Electronically Signed: Kurtis Mcnally MD at 10:06 EDT ,
--- NOTE | 2021-11-05 12:46 | EKG12_ITS ---
Test Reason : PRE-OP Blood Pressure : / mmHG Vent. Rate : 064 BPM Atrial Rate : 064 BPM P-R Int : 134 ms QRS Dur : 080 ms QT Int : 428 ms P-R-T Axes : 042 -01 028 degrees QTc Int : 441 ms Normal sinus rhythm Normal ECG Confirmed by ARIANNA THOMAS, VAN ([id number]), scientific publications editor MAYELA THOMASON ([id number]) on 11/06/2021 11:30:40 AM Referred By: ALEC Confirmed By:VAN KELLER MD
[2021-11-05 13:30] LABS: Absolute Lymphocyte Count 2.01 X10^3/uL (0.83-4.51); Absolute Neutrophil Count 5.1 X10^3/uL (2.0-7.7); Basophil# 0.05 X10^3/uL; Basophil% 0.6 % (0-1); Eosinophil# 0.45 X10^3/uL; Eosinophils% 5.3 % (0-5); Hematocrit 37.2 % (40-54); Hemoglobin 12.5 g/dL (13.0-16.5); Lymphocyte # 2.01 X10^3/ul (0.83-4.51); Lymphocyte % 23.7 % (19-41); Mean Corp Hgb Conc 33.6 g/dL (32-36); Mean Corpuscular Hgb 30.9 pg (27.0-32.0); Mean Corpuscular Volume 92.1 fL (80-94); Mean Platelet Vol. 10.7 fl (6.2-12.0); Monocyte# 0.82 X10^3/uL; Monocyte% 9.7 % (0-10); NRBC Flagged by Analyzer 0 % (0-5); Neutrophil # 5.13 X10^3/uL (2.7-7.7); Neutrophil % 60.5 % (47-70); Platelet Count 227 K/mm3 (150-450); RBC Distribution Width CV 13.5 % (11.6-14.6); RBC Distribution Width SD 45.3 fl (35.1-43.9); Red Blood Count 4.04 M/mm3 (4.6-6.2); White Blood Count 8.5 K/mm3 (4.4-11.0)
[2021-11-05 13:38] LABS: Prothrombin Time (Protime)PT. 13.3 SECONDS (11.7-14.9)
[2021-11-05 13:39] LABS: Partial Thromboplast Time 31.8 Seconds (24.1-36.2)
[2021-11-05 13:56] LABS: Anion Gap 4 (5-15); BUN 13 mg/dL (7-18); BUN/Creat Ratio 15.8 RATIO (10-20); Calcium,Total 8.7 mg/dL (8.5-10.1); Chloride 105 mmol/L (98-107); Creatinine, Serum 0.82 mg/dL (0.70-1.30); EST Glomerular Filtration Rate 97 mL/min (>60); Est Glom Filt Rate - Afr Amer 118 mL/min (>60); Glucose 103 mg/dL (74-106); Potassium 4.1 mmol/L (3.5-5.1); Sodium Level 137 mmol/L (136-145)
[2021-11-05 14:07] LABS: AST(SGOT) 14 U/L (15-37); Alanine Aminotransfer ALT/SGPT 23 U/L (16-61); Albumin, Serum 3.4 g/dL (3.2-5.0); Alkaline Phosphatase 90 U/L (45-117); Globulin 3.5 g/dL (2.2-4.2); Protein, Total 6.9 g/dL (6.4-8.2)
--- NOTE | 2021-11-05 15:05 | CASEMGMT ---
GORDY LEE Assessment: TC to pt for initial transition planning/care coordination assessment. RN ROSA introduced self and role at [facility], pt voices understanding and consents to assessment. Care providers, pharmacy, and demographics verified/updated. Admitting Dx: L carotid endarterectomy PCP:[facility] Specialists: hector Dahl; sienna Leroy Preferred [facility]acy: [facility] Insurance: [facility], [employer] Prescription Benefit: yes LW/HPOA: Pt states he has a LW/DPOA and his DPOA is his dtr Deepa Turner. He is aware this is not on file at [facility] and he may bring in on day of surgery to be scanned into his chart. LNOK: Nandini Brito, Living Arrangements: Pt lives with in a single story house with 5 steps to enter with a rail. Pt reports he is I in ADL's and denies concerns at home. Transportation: Pt drives self and denies concerns with transportation. able to assist until he can drive again. DME/HHC/SNF: Pt has a cane and walker at home. States he occasionally uses the cane. Pt denies hx of HHC or SNF stays. Pt states no concerns with going home at time of dc. Pt states no further concerns/needs. CM to follow. Advised pt to ask CM if any further question/concerns/needs arise, voices understanding. Pt Goal: Home Plan: Home
[2021-11-11] VITALS (18 sets, daily range): BP systolic 129–173; BP diastolic 54–78; PULSE 57–88; RESP 12–21; TEMP 36.1–36.7; O2SAT 93–99; BMI 27.3; BMI 28.7
[2021-11-11] MEDS: Lactated Ringers 1,000 ML 15 ML IV ×2 (10:10→17:15)
--- NOTE | 2021-11-11 11:30 | PLAQ_PTH ---
PATIENT: NIKKO BARAJAS LOC: PCU U#:[id number] AGE/SX: 76/M ROOM: [facility] RE11/11/[address]: Dr. Blade Dahl MD : [id number] BED: 1 DIS: 11/17/2021 SPEC #: [id number] RECD: 11/11/21 17:31 STATUS: FRANKLIN REBety #: [id number] SARA: 11/11/21 11:[address]: Blade Dahl DEPT: SURGICAL PATHOLOGY RECD BY: Mariposa Loredo ENTERED: 11/12/21 08:00 SP TYPE: PLAQUE OTHR DR: Dr. Humphrey Maher, DO Tissues: PLAQUE Procedures: Decalcification bone/plaque Surgery Specimen Level III HEADER OPERATION: Carotid endarterectomy PRE-OP DIAGNOSIS: Carotid stenosis TISSUE SUBMITTED: Left carotid plaque MICROSCOPIC DIAGNOSIS Left carotid plaque, endarterectomy: Atherosclerotic tissue with focal calcifications (plaque). SJ:hugo 11/14/2021 GROSS DESCRIPTION Received in fixative is one container labeled with the patient's name and designated left carotid plaque. The specimen consists of a previously opened tubular piece of oshea-yellow, indurated tissue measuring 3.5 cm in length and 1 cm in diameter. Also received separate are fragments of yellowish, indurated tissue measuring in aggregate 1.5 x 1 x 0.5 cm. The specimen cuts with gritty sensation. Order Desk Caller sections are submitted in one cassette after decalcification. / EARL:hugo 11/12/2021 TC:5 CPT: 42944, 33346
[2021-11-11] MEDS: Cefazolin 2 GM in 0.9% Normal Saline 100 ML IV (11:43)
--- NOTE | 2021-11-11 11:54 | PCM.HP.BLA ---
History and Physical HPI: 76 yo male with left ICA stenosis, asymptomatic. Intake Visit Reasons:?discuss carotid surgery Chief Complaint: bilateral coratid artery stenosis Is patient in pain?: No Allergies bee pollen Allergy (Unknown, Verified 10/28/21 08:58) Unknown Medications aspirin 325 mg tablet,delayed release (Ecotrin) 325 mg PO QDAY 05/22/17 [History Confirmed 10/28/21] clopidogrel 75 mg tablet (Plavix) 75 mg PO QDAY 05/22/17 [History Confirmed 10/28/21] pantoprazole 40 mg tablet,delayed release 40 mg PO QDAY 05/22/17 [History Confirmed 10/28/21] albuterol sulfate 90 mcg/actuation aerosol inhaler (ProAir HFA) 2 puff inhalation Q6H PRN Wheezing 07/20/17 [History Confirmed 10/28/21] cholecalciferol (vitamin D3) 25 mcg (1,000 unit) capsule 3,000 unit PO DAILY 04/01/18 [History Confirmed 10/28/21] nitroglycerin 0.4 mg sublingual tablet 0.4 mg sublingual Q5-15M PRN chest pain #25 tabs 06/14/19 [Rx Confirmed 10/28/21] tiotropium bromide 2.5 mcg/actuation mist for inhalation (Spiriva Respimat) 2 inh inhalation QAM 01/23/21 [History Confirmed 10/28/21] metoprolol tartrate 25 mg tablet 25 mg PO BID #180 tabs 04/12/21 [Rx Confirmed 10/28/21] lisinopril 20 mg tablet 20 mg PO QDAY #90 tabs 04/16/21 [Rx Confirmed 10/28/21] allopurinol 300 mg tablet 300 mg PO QDAY #90 tabs 07/19/21 [Rx Confirmed 10/28/21] isosorbide mononitrate 30 mg tablet,extended release 24 hr 30 mg PO DAILY #30 tabs 09/24/21 [Rx Confirmed 10/28/21] atorvastatin 20 mg tablet 20 mg PO QDAY #90 tabs 09/30/21 [Rx Confirmed 10/28/21] PFSH Medical History? Arthritis Atherosclerotic heart disease of [place] coronary artery without angina pectoris Carotid stenosis, bilateral COPD (chronic obstructive pulmonary disease) Essential hypertension Hyperlipidemia Hypertension Old myocardial infarction Surgical History? H/O local excision of skin lesion History of brain surgery History of left knee surgery History of tonsillectomy Postsurgical percutaneous transluminal coronary angioplasty (PTCA) status Presence of stent in coronary artery (~01/22/11) S/P hernia repair Family History? Father CVA (cerebral vascular accident)Mother CAD (coronary artery disease) Hx of CABG CHF (congestive heart failure) S/P MVR (mitral valve replacement)Brother COPD (chronic obstructive pulmonary disease) Diabetes Cancer ?? ? lungGrandfather Colon cancer Social History? Smoking Status:? Former smoker how long ago did patient quit smoking:? 1997 alcohol intake:? never substance use type:? does not use caffeine:? Yes what type of physical activity do you participate in:? walking frequency:? daily ROS General General: Yes weight change, fatigue and weakness; No appetite, colon cancer or breast cancer HEENT HEENT: Yes eye injury; No difficulty swallowing, eye surgery, swollen glands or hoarseness Endo Endocrine: No thyroid disease, diabetes mellitus, thyroid cancer, Hair loss, heat intolerance or cold intolerance Skin Skin: No rash or changing moles Breast Breast: No left breast lump, right breast lump, nipple discharge, breast pain, abnormal mammogram, abnormal US or breast enlargement Musc Musculoskeletal: Yes back problems, arthritis and gout; No rheumatoid arthritis or joint pain Cardio Cardiovascular: Yes heart disease, high blood pressure, heart attack and heart stent; No murmur, pacemaker, atrial fibrillation, palpitations, shortness of breat with exertion or chest pain Psych Psychiatric: No depression, anxiety or hearing voices Resp Respiratory: Yes shortness of breath, No sleep apnea, No cough, Yes COPD, No asthma, Yes emphysema and No wheezing Gastro Gastrointestinal: No abdominal pain, No nausea or vomiting, No diarrhea, No constipation, No blood in stool, Yes acid reflux, Yes hemorrhoids, No ulcers, No gallbladder problem and No black,tarry stools Raúl Hematologic: Yes blood thinners, No blood disorders, No bleeding, No anemia and No blood clots Neuro Neurologic: Yes system reviewed and no additional complaints, except as documented, Yes as per HPI, Yes abnormal gait, Yes abnormal hearing, Yes abnormal movements, Yes abnormal speech, Yes behavioral changes, Yes burning sensations, Yes confusion, Yes convulsions, Yes disequilibrium, Yes dizziness, Yes localized weakness, Yes frequent falls, Yes headache(s), Yes lack of coordination, Yes loss of vision, Yes memory loss, Yes numbness, Yes other visual disturbances, Yes radicular pain, Yes restless legs, Yes sensory deficit, Yes syncope, Yes tingling, Yes tremor(s), Yes weakness and Yes other Assessment and Plan Assessment and Plan (1) Carotid stenosis, bilateral: ?Status:?Chronic ?Plan: -CTA images reviewed, degree of stenosis consistent with duplex imaging on left; 85% stenosis, long calcified plaque -right ICA read as >80%, but by my measurements ~60%, and duplex velocities in low end 70-99% -will plan for left CEA and continue surveillance of right -Dr. Dubose will proceed with hernia after recovered from carotid -cont asa, plavix through surgery
[2021-11-11] MEDS: Heparin Injection (Vial) 5,000 UNIT/ML VIAL 5000 UNIT (15:23)
[2021-11-11] MEDS: Bupivacaine 0.25% 30 ML Vial (15:25)
--- NOTE | 2021-11-11 16:21 | PCM.OPRPT ---
Report of Operation Pre-Operative Diagnosis: Asymptomatic left carotid stenosis Post-Operative Diagnosis: Same Surgery/Procedure Performed:: Left carotid endarterectomy and patch angioplasty Description of Surgical Findings:: Highly calcified long segment stenosis well beyond the bifurcation. Postoperative moving all extremities to command cranial nerves intact. Surgeon: Blade Dahl Type of Anesthesia: General Specimen's removed: Plaque Drains: 7 mm flat SUZY Description of Procedure: HPI: Patient is a 76-year-old male with bilateral carotid artery stenosis left more severe than right followed serially. Most recent imaging revealed increased left carotid artery degree of stenosis with duplex and CTA suggesting greater than 80% stenosis. He is currently planning for robotic hernia repair and was referred to adjudicate the carotid prior to hernia. He presents now for elective left carotid endarterectomy. Description of procedure: Upon obtaining form consent and verification of correct patient procedure site patient was taken the operating was placed in general anesthesia. He was then positioned prepped and draped in usual sterile fashion a timeout was performed. Oblique incision was made along the anterior border the sternocleidomastoid and both electrocautery was dissect down through the subcutaneous tissue. The platysma was divided and self-retaining retractors put in position. Further dissection was then carried down to the anterior border the sternocleidomastoid allowing me to be retracted posterior laterally exposing the jugular vein. Sharp dissection was then used to dissect free along the anterior border the jugular vein with the facial vein identified ligated with silk ties and divided. We then retracted the jugular vein laterally exposing the carotid vessels. Sharp resection of the knee was dissected free the proximal common carotid artery with care taken to identify and protect the vagus nerve. The proximal vessel was dissected free circumferentially and a right angle used to place a vessel loop. We then turned attention to the internal carotid artery dissecting lateral along the carotid vessels to a point where the internal carotid artery was soft and free of plaque. Of note of this lesion was very lengthy and this required significant distal dissection well beyond the hypoglossal nerve to find suitable clinical vessel. Given his extensive dissection and patch modifier 22 was applied given approximate 1 hour of increased operative time. Once we able to dissect the internal carotid artery distal right angle was it was used to place a vessel loop. Patient was then heparinized to circulate for 3 minutes while this was circulating sharp dissection used to dissect free the external carotid artery. The hypoglossal nerve which had been identified in significantly mobilized was protected retracted with a vessel loop. Vessels were then clamped first the internal followed by the common and external in a longitudinal arteriotomy was created with 11 blade extended with Santos scissors onto the internal carotid artery beyond the area of plaque. A 10 [place] shunt was then placed first distally into the internal carotid artery allowed to backbleed and then placed proximally into the common carotid artery. Shunt was interrogated with Doppler and upon and found be patent with low resistance signal. We then used a freer elevator to perform her endarterectomy with satisfactory endpoint distally on the internal carotid artery and eversion endarterectomy of the external carotid artery. The lumen was flushed heparinized saline to clear debris in the distal endpoint tacked with 7-0 Prolene interrupted sutures. Next a bovine pericardial patch was secured in position using 6-0 Prolene in a running fashion. Prior to completing the suture line the shunt was removed and the vessels backbled and the lumen flushed heparinized saline. After the central line the internal carotid artery allowed to backbleed and then reoccluded as origin after which the external and common carotid arteries were released allowing 10 heartbeats of antegrade flow into the external carotid artery before we establish antegrade flow into the internal carotid artery. After clamps removed satisfactory hemostasis was noted and the vessels were interrogated with Doppler. The internal carotid arteries patent low resistant signal in the external carotid was patent. Patient was administered 25 mg of protamine after which the vessels were again interrogated with Doppler with no alteration in Doppler signal. The incision was then inspected with stasis and 1 felt to be adequate a 7 mm channel SUZY was placed via separate stab incision. The incision was then closed with 2-0 Vicryl 3-0 Vicryl for Monocryl and Dermabond for the skin. The inclusion the case patient awake from anesthesia moving all extremities to command with cranial nerves intact. He was then taken to the recovery room with anticipated mission to the intensive care unit for close hemodynamic and neurologic monitoring. Grafts/Implants Used: bovine pericardium
[2021-11-11] MEDS: Acetaminophen 325 MG Tablet 650 MG PO (19:25)
[2021-11-11] MEDS: Ipratropium 0.5 MG/2.5 ML SOLUTION INHALATION (19:57)
[2021-11-11] MEDS: Metoprolol Tartrate 25 MG Tablet PO (21:26)
[2021-11-11] MEDS: Atorvastatin Calcium 20 MG Tablet PO (21:27)
[2021-11-11] MEDS: Labetalol (Prefilled) 20 MG/4 ML 10 MG IV (23:32)
[2021-11-11] MEDS: 0.9% Saline Lock 10 ML Syringe IV (23:34)
[2021-11-12] VITALS (36 sets, daily range): BP systolic 113–149; BP diastolic 47–86; PULSE 64–95; RESP 10–19; TEMP 35.9–36.6; O2SAT 90–98
[2021-11-12] MEDS: hydrALAZINE 20 MG/ML Vial 10 MG IV (00:54)
[2021-11-12] MEDS: 0.9% Saline Lock 10 ML Syringe IV ×3 (00:57→22:16)
[2021-11-12] MEDS: Acetaminophen 325 MG Tablet 650 MG PO ×3 (01:00→21:07)
[2021-11-12 03:36] LABS: Absolute Lymphocyte Count 0.73 X10^3/uL (0.83-4.51); Basophil# 0.02 X10^3/uL; Basophil% 0.1 % (0-1); Hematocrit 34.9 % (40-54); Hemoglobin 11.9 g/dL (13.0-16.5); Lymphocyte # 0.73 X10^3/ul (0.83-4.51); Lymphocyte % 5.5 % (19-41); Mean Corp Hgb Conc 34.1 g/dL (32-36); Mean Corpuscular Hgb 31.1 pg (27.0-32.0); Mean Corpuscular Volume 91.1 fL (80-94); Mean Platelet Vol. 10.3 fl (6.2-12.0); Monocyte% 4.5 % (0-10); NRBC Flagged by Analyzer 0 % (0-5); Neutrophil # 11.95 X10^3/uL (2.7-7.7); Neutrophil % 89.3 % (47-70); Platelet Count 215 K/mm3 (150-450); RBC Distribution Width CV 13.6 % (11.6-14.6); RBC Distribution Width SD 44.4 fl (35.1-43.9); Red Blood Count 3.83 M/mm3 (4.6-6.2); White Blood Count 13.4 K/mm3 (4.4-11.0)
[2021-11-12] MEDS: Ondansetron 4 MG/2 ML Vial IV (03:36)
[2021-11-12 03:55] LABS: Anion Gap 9 (5-15); BUN 16 mg/dL (7-18); BUN/Creat Ratio 19.3 RATIO (10-20); Calcium,Total 8.2 mg/dL (8.5-10.1); Chloride 103 mmol/L (98-107); Creatinine, Serum 0.83 mg/dL (0.70-1.30); EST Glomerular Filtration Rate 97 mL/min (>60); Est Glom Filt Rate - Afr Amer 117 mL/min (>60); Estimated Creatinine Clearance 70.46 ml/min; Glucose 178 mg/dL (74-106); Potassium 4.2 mmol/L (3.5-5.1); Sodium Level 135 mmol/L (136-145)
[2021-11-12] MEDS: Ipratropium 0.5 MG/2.5 ML SOLUTION INHALATION ×2 (07:17→19:30)
[2021-11-12 08:37] LABS: ACT Activated Clotting Time 138 sec (74-137)
[2021-11-12 08:38] LABS: ACT Activated Clotting Time 248 sec (74-137)
[2021-11-12 08:39] LABS: ACT Activated Clotting Time 237 sec (74-137)
--- NOTE | 2021-11-12 08:39 | NURSING ---
right radial arterial line removed, gauze and opsite placed, patient tolerated well.
[2021-11-12 08:41] LABS: ACT Activated Clotting Time 242 sec (74-137)
[2021-11-12] MEDS: Clopidogrel Bisulfate 75 MG Tablet PO (08:41)
[2021-11-12] MEDS: Allopurinol 300 MG Tablet PO (08:41)
[2021-11-12] MEDS: Lisinopril 20 MG Tablet PO (08:42)
[2021-11-12] MEDS: Isosorbide Mononitrate 30 MG Tablet PO (08:42)
[2021-11-12] MEDS: Aspirin 325 MG Tablet PO (08:42)
[2021-11-12] MEDS: Pantoprazole Sodium 40 MG Tablet PO (08:42)
[2021-11-12] MEDS: Metoprolol Tartrate 25 MG Tablet PO ×2 (08:44→21:04)
--- NOTE | 2021-11-12 16:59 | PN.SURG_ITS ---
Subjective Subjective Doing well. No numbness/weakness/vision loss/speech difficulty. Unsteady when ambulating earlier in day. Voiding without difficulty. Objective Data Objective Data Vital Signs: Vital Signs Temp Pulse Resp BP Pulse Ox O2 Del Method O2 Flow Rate 97.5 F L 74 15 114/86 H 96 Room Air 2 11/12/21 12:00 11/12/21 16:00 11/12/21 16:00 11/12/21 16:00 11/12/21 16:00 11/12/21 16:00 11/12/21 15:11 FiO2 96 11/12/21 00:00 Oxygen Flow Rate (L/min) 2 Oxygen Delivery Method Room Air Weight: 174 lb 2.643 oz Body Mass Index (BMI) 28.7 Intake & Output: Intake and Output for Last 24 Hours 11/10/21 11/11/21 11/12/21 23:59 23:59 23:59 Intake Total 1110 / 1110 659.25 / 659.25 Output Total 50 / 50 250 / 250 Balance 1060 / 1060 409.25 / 409.25 Lab / Micro Data Result Diagrams: 11/12/21 03:30 11/12/21 03:30 Labs: Laboratory Results - last 24 hr 11/11/21 11:41: Activated Clotting Time 138 H 11/11/21 13:34: Activated Clotting Time 248 H 11/11/21 14:10: Activated Clotting Time 237 H 11/11/21 14:42: Activated Clotting Time 242 H 11/12/21 03:30: WBC 13.4 H, RBC 3.83 L, Hgb 11.9 L, Hct 34.9 L, MCV 91.1, MCH 31.1, MCHC 34.1, RDW Std Deviation 44.4 H, RDW Coeff of Esther 13.6, Plt Count 215, MPV 10.3, Immature Gran % (Auto) 0.600, Neut % (Auto) 89.3 H, Lymph % (Auto) 5.5 L, [place] % (Auto) 4.5, Eos % (Auto) 0.0, Baso % (Auto) 0.1, Absolute Neuts (auto) 12.0 H, Absolute Lymphs (auto) 0.73 L, Nucleated RBC % 0 11/12/21 03:30: Sodium 135 L, Potassium 4.2, Chloride 103, Carbon Dioxide 23.0, Anion Gap 9, BUN 16, Creatinine 0.83, Estim Creat Clear Calc 70.46, Est GFR (MDRD) Af Amer 117, Est GFR (MDRD) Non-Af 97, BUN/Creatinine Ratio 19.3, Glucose 178 H, Calcium 8.2 L Physical Exam Const alert, oriented x3, no apparent distress and healthy appearing General Appearance: cooperative; Negative for combative or lethargic Orientation / Consciousness: awake Exam Limitations: no limitations HEENT Head and Scalp: normocephalic and atraumatic Neck full ROM General: trachea midline Carotids: other Other Details: incision clean, dry, intact, no hematoma. SUZY sero-sang Resp normal respiratory effort and no use of accessory muscles Effort and Inspection: Negative for labored, stridor or audible wheezes Cardio regular rate and regular rhythm Back/Spine Cervical Spine: cervical ROM normal Skin no rashes or lesions noted and no wounds Neuro oriented x3, CN's II-XII intact bilaterally, no focal motor deficits and no sensory deficits noted Psych thought process normal, cooperative, affect normal, speech normal and activity/motor behavior normal Assessment & Plan Assessment/Plan (1) Carotid stenosis, bilateral: PLAN: -POD # 1 left CEA -minimal drain output; removed -marlo diet, advance -neuro intact -unsteady ambulating; will work with nursing but likely to stay another night
[2021-11-12] MEDS: Atorvastatin Calcium 20 MG Tablet PO (21:04)
[2021-11-12] MEDS: Labetalol (Prefilled) 20 MG/4 ML 10 MG IV (22:15)
[2021-11-13] VITALS (43 sets, daily range): BP systolic 82–149; BP diastolic 48–102; PULSE 68–146; RESP 10–22; TEMP 36.5–36.9; O2SAT 92–98
[2021-11-13] MEDS: hydrALAZINE 20 MG/ML Vial 10 MG IV (01:20)
[2021-11-13] MEDS: 0.9% Saline Lock 10 ML Syringe IV ×5 (01:21→05:39)
--- NOTE | 2021-11-13 03:05 | EKG12_ITS ---
Test Reason : Blood Pressure : / mmHG Vent. Rate : 141 BPM Atrial Rate : 090 BPM P-R Int : 000 ms QRS Dur : 082 ms QT Int : 286 ms P-R-T Axes : 000 -15 076 degrees QTc Int : [address] depression, consider subendocardial injury Abnormal ECG No previous ECGs available Confirmed by KIM THOMAS, MAGDIEL ([id number]), video editor MAYELA THOMASON ([id number]) on 11/20/2021 11:29:26 AM Referred By: Blade Dahl Confirmed By:MAGDIEL ALVAREZ MD
[2021-11-13] MEDS: Metoprolol Tartrate 5 MG/5 ML Vial 2.5 MG IV (03:24)
--- NOTE | 2021-11-13 04:04 | PCM.PN.HOSP ---
Subjective Subjective Patient is a 76-year-old male with a significant history of CAD status post 13 stents; COPD; former smoker; and left carotid artery endarterectomy postop day 2. Internal medicine service has been consulted for Will[place]. toan with RVR. While admitted to the intensive care unit post carotid enterectomy Yajaira joya with RVR was seen on telemetry. Patient reports intermittent palpitation. He reports some shortness of breath. Of note patient reports a history of palpitations for which he had a Holter monitor in early August 2021. Also, he had an abnormal stress test in early August 2021. Patient had an abnormal cardiac catheterization on 09/24/2021 and there is plan for staged percutaneous intervention after hernia surgery (yet to be scheduled). In preparation for the hernia surgery he underwent left carotid enterectomy on 11/11/2021. Social History: Former smoker Family History: CVA, COPD, CHF Objective Data Objective Data Physical exam: General: Well-nourished, well-developed. Head: Normocephalic, atraumatic, no tenderness Eyes: Vision is grossly intact. EOMI ENT, no trauma, moist mucous membranes, no rhinorrhea Neck: Well approximated incision at the left neck. Full range of motion. CVS: Regular rate and rhythm. S1-S2 present. No murmur, gallop or rub. Respiratory : clear to auscultation bilaterally, chest wall nontender, no wheezing Abdomen: Soft, nontender, nondistended, normal bowel sounds, no masses : Deferred Back: Nontender, no CVA tenderness. Extremities: Nontender full range of motion, no trauma Skin: Normal color, no trauma, abrasions Neuro: Alert, oriented, cranial nerves II through XII grossly intact. Psychiatry: Normal mood. Normal affect. Not depressed. Not anxious. Vital Signs: Vital Signs Temp Pulse Resp BP Pulse Ox O2 Del Method O2 Flow Rate 97.7 F L 145 H 12 149/65 H 96 Nasal Cannula 2 11/13/21 00:00 11/13/21 03:24 11/13/21 02:00 11/13/21 03:24 11/13/21 02:00 11/13/21 02:00 11/13/21 02:00 FiO2 96 11/12/21 00:00 Oxygen Flow Rate (L/min) 2 Oxygen Delivery Method Nasal Cannula Weight: 79 kg Body Mass Index (BMI) 28.7 Intake & Output: Intake and Output for Last 24 Hours 11/11/21 11/12/21 11/13/21 23:59 23:59 23:59 Intake Total 1110 / 1110 819.25 / 819.25 Output Total 50 / 50 250 / 250 Balance 1060 / 1060 569.25 / 569.25 Lab / Micro Data Result Diagrams: 11/12/21 03:30 11/12/21 03:30 Labs: Laboratory Results - last 24 hr 11/11/21 11:41: Activated Clotting Time 138 H 11/11/21 13:34: Activated Clotting Time 248 H 11/11/21 14:10: Activated Clotting Time 237 H 11/11/21 14:42: Activated Clotting Time 242 H Assessment & Plan Assessment/Plan (1) Atrial fibrillation with RVR: PLAN: Plan A. fib with RVR EKG and telemetry showed Afib with RVR Received metoprolol IV with no effective response. Cardizem 10 mg IV push ordered with hypotension but improved ventricular rate. If ventricular rate increase will discuss with cardiology and likely start patient on amiodarone drip. Last echocardiogram on file was on 04/25/21: Echocardiogram at that time showed ejection fraction of 55% with indeterminate diastolic function. Basal inferoseptal hypokinesis; mid inferior hypokinesis; mid inferoseptal hypokinesis. Anterior apex; and inferior apex was not visualized. Left atrium was mildly enlarged. Echocardiogram ordered. Potassium is normal. Check magnesium level. Check TSH. Discussed with vascular surgeon and patient will be started on heparin 500 units/hr. Vascular will consider further adjustment of anticoagulation in due course S/p Carotid endarectomy Aspirin and Plavix continued Management by vascular. CAD s/p stent Stable Metoprolol; lisinopril; isosorbide; ASA and Plavix. HTN Stable. Home BP meds continued. Cardizem for Afib as above. Trend DVT Prophylaxis: Heparin drip as above Charges/Coding Visit Charges Inpatient E&M: 52457 Subs Hosp L2
[2021-11-13] MEDS: dilTIAZem 25 MG/5 ML Vial 10 MG IV BOLUS (04:06)
--- NOTE | 2021-11-13 04:17 | NURSING ---
Pt noted to have HR in the 130-140s. EKG obtained, MD Dahl notified X1 IV push Lopressor ordered. asked nurse to consult hospitalist for new onset of afib RVR. Notified Dr. hutchinson of pts change in condition, to bedside, x1 IV push Cardizem ordered and given. See new orders.
--- NOTE | 2021-11-13 04:49 | ECHOD_ITS ---
Reason For Study: POST OP AFIB Procedure This was a 2D Doppler, Color Flow transthoracic echocardiogram. The study was technically difficult. Exam performed portable in ICU/CCU. Left Ventricle Normal LV size. Segmental dysfunction with preserved ejection fraction (see wall motion). The estimated ejection fraction is 55 %. Unable to assess diastolic dysfunction. Infero-Basal: Hypokinetic. Mid-Inferior: Hypokinetic. Right Ventricle Normal RV size. Normal systolic function. Atria The left atrium is mildly enlarged. Normal right atrium. No doppler evidence for ASD. Mitral Valve There is moderate mitral annular calcification. Extension of the mitral annular calcification onto the base of the posterior mitral valve leaflet. The mitral papillary muscle appears thickened and/or calcified. Mild-Moderate (1-2+) mitral valve insufficiency. Tricuspid Valve Normal tricuspid valve. Mild tricuspid valve insufficiency. Right ventricular systolic pressure estimated to be 34 mmHg. Aortic Valve Trisinus/trileaflet aortic valve. Mild diffuse aortic valve thickening. Mild focal aortic valve calcification. Pulmonic Valve The pulmonic valve is not well visualized. Mild (1+) pulmonic valve insufficiency. Great Vessels Normal sized aortic root. Calcified aortic root. Pericardium/Pleural No pericardial effusion. MMode/2D Measurements & Calculations LVIDd: 4.2 cm IVSd: 1.1 cm Ao root diam: 3.1 cm LVIDs: 3.1 cm LVPWd: 1.1 cm LA dimension: 3.7 cm RVDd: 3.8 cm FS: 24.4 % LAV(MOD-bp): 106.0 ml LA A4 area: 28.5 cm2 RA A4 area: 15.6 cm2 LAV(MOD-bp) Indexed: 56.9 ml/m2 LAV(MOD-sp2): 98.0 ml LAV(MOD-sp4): 98.0 ml Doppler Measurements & Calculations MV E max umm: 82.7 cm/sec Ao V2 max: 183.8 cm/sec LV V1 max: 64.3 cm/sec Ao max P.6 mmHg LV V1 max P.7 mmHg Ao V2 mean: 134.0 cm/sec LV V1 mean P.0 mmHg Ao mean P.1 mmHg LV V1 mean: 47.3 cm/sec Ao V2 VTI: 34.7 cm LV V1 VTI: 14.4 cm PA V2 max: 124.9 cm/sec TR max umm: 276.6 cm/sec PI dec slope: 136.3 cm/sec2 TR max P.6 mmHg ECHO/Echo Complete Interpretation Summary The study was technically difficult. Segmental dysfunction with preserved ejection fraction (see wall motion). The estimated ejection fraction is 55 %. The left atrium is mildly enlarged. There is moderate mitral annular calcification. Extension of the mitral annular calcification onto the base of the posterior mi tral valve leaflet. The mitral papillary muscle appears thickened and/or calcified. Mild-Moderate (1-2+) mitral valve insufficiency. Mild tricuspid valve insufficiency. Mild diffuse aortic valve thickening. Mild focal aortic valve calcification. Mild (1+) pulmonic valve insufficiency. Calcified aortic root. Right ventricular systolic pressure estimated to be 34 mmHg. Unable to assess diastolic dysfunction. Ordering Physician: David Sherwood Referring Physician: Blade Dahl Performed By: Marifer Gold, ARTUR, RVT
[2021-11-13] MEDS: Ondansetron 4 MG/2 ML Vial IV (04:55)
[2021-11-13 05:04] LABS: International Normalized Ratio 1.1; Partial Thromboplast Time 30.1 Seconds (24.1-36.2); Prothrombin Time (Protime)PT. 13.9 SECONDS (11.7-14.9)
[2021-11-13 05:25] LABS: Anion Gap 8 (5-15); BUN 19 mg/dL (7-18); BUN/Creat Ratio 25.3 RATIO (10-20); Calcium,Total 8.2 mg/dL (8.5-10.1); Chloride 101 mmol/L (98-107); Creatinine, Serum 0.75 mg/dL (0.70-1.30); EST Glomerular Filtration Rate 108 mL/min (>60); Est Glom Filt Rate - Afr Amer 131 mL/min (>60); Estimated Creatinine Clearance 58.48 ml/min; Glucose 120 mg/dL (74-106); Magnesium 2.2 mg/dL (1.6-2.6); Potassium 3.8 mmol/L (3.5-5.1); Sodium Level 135 mmol/L (136-145); Thyroid Stim Hormone (TSH) 1.08 uIU/mL (0.358-3.74)
[2021-11-13] MEDS: HEPARIN/D5w 25,000 UNITS 25,000 UNITS/250 ML IV.SOLN. 5 UNITS IV (05:31)
--- NOTE | 2021-11-13 05:55 | RAD_ITS ---
STUDY: X-RAY CHEST REASON FOR EXAM: Male, 76 years old. SOB TECHNIQUE: Single AP portable view of the chest. COMPARISON: Comparison is made with prior study dated 11/05/2021. FINDINGS: EKG electrodes are seen. Mild degree of increased markings at the lung bases likely more prominent on the right side suggests of bibasilar atelectasis and/or early infiltrates. Follow-up recommended. There is no demonstrated pleural abnormality. Normal size heart. Normal mediastinum and timothy. Normal visualized pulmonary arteries. There is atherosclerotic calcification of the aortic arch with tortuosity. There are diffuse degenerative changes of the visualized thoracic spine. Normal visualized ribs, clavicles, and shoulders. There is no demonstrated abnormality of the visualized soft tissue structures of the upper abdomen. RAD/Chest 1 View (Portable) IMPRESSION: Mild degree of increased markings at the lung bases slightly worse on the right side suggestive of bibasilar atelectasis and/or early infiltrates. Follow-up recommended. Electronically Signed: Arjun Shaver MD at 9:16 EDT ,
[2021-11-13] MEDS: Ipratropium 0.5 MG/2.5 ML SOLUTION INHALATION ×2 (07:15→18:54)
[2021-11-13] MEDS: Metoprolol Tartrate 25 MG Tablet PO ×2 (07:44→19:44)
[2021-11-13] MEDS: Aspirin 325 MG Tablet PO (07:44)
[2021-11-13] MEDS: Allopurinol 300 MG Tablet PO (07:44)
[2021-11-13] MEDS: Isosorbide Mononitrate 30 MG Tablet PO (07:44)
[2021-11-13] MEDS: Lisinopril 20 MG Tablet PO (07:45)
[2021-11-13] MEDS: Pantoprazole Sodium 40 MG Tablet PO (07:45)
[2021-11-13] MEDS: Clopidogrel Bisulfate 75 MG Tablet PO (07:45)
[2021-11-13] MEDS: Amiodarone 360 MG in Dextrose 5% Viaflo Bag 192.8 ML 33.3 MG CONT INF (08:54)
--- NOTE | 2021-11-13 09:07 | PCM.PN.HOSP ---
Subjective Subjective Follow-up on postop medical management: Patient was seen and examined. Postoperatively, in the ICU, patient went into A. fib with RVR. Currently on amiodarone as well Cardizem drip. Denied any pain. Objective Data Objective Data Vital Signs: Vital Signs Temp Pulse Resp BP Pulse Ox O2 Del Method O2 Flow Rate 98.2 F 95 21 H 121/68 H 94 Room Air 1 11/13/21 08:00 11/13/21 09:00 11/13/21 09:00 11/13/21 09:00 11/13/21 09:00 11/13/21 09:00 11/13/21 07:15 FiO2 96 11/12/21 00:00 Oxygen Flow Rate (L/min) 1 Oxygen Delivery Method Room Air Weight: 76.9 kg Body Mass Index (BMI) 28.7 Intake & Output: Intake and Output for Last 24 Hours 11/11/21 11/12/21 11/13/21 23:59 23:59 23:59 Intake Total 1110 / 1110 819.25 / 819.25 134.41 / 134.41 Output Total 50 / 50 250 / 250 200 / 200 Balance 1060 / 1060 569.25 / 569.25 -65.59 / -65.59 Lab / Micro Data Result Diagrams: 11/12/21 03:30 11/13/21 04:35 Labs: Laboratory Results - last 24 hr 11/13/21 04:35: PT 13.9, INR 1.1, APTT 30.1 11/13/21 04:35: Sodium 135 L, Potassium 3.8, Chloride 101, Carbon Dioxide 26.0, Anion Gap 8, BUN 19 H, Creatinine 0.75, Estim Creat Clear Calc 58.48, Est GFR (MDRD) Af Amer 131, Est GFR (MDRD) Non-Af 108, BUN/Creatinine Ratio 25.3 H, Glucose 120 H, Calcium 8.2 L, Magnesium 2.2, TSH 1.08 Physical Exam Narrative Physical exam: General: Alert, Oriented x3, Cooperative HEENT: Left sided wound on the neck, clean, dry Oral: Moist Mucosa Neck: Supple Lungs: Diminished to auscultation Cardiovascular: HS I+II, regular, no murmurs Abdomen: Bowel Sounds Present, Soft, Non Tender Extremities: No edema Skin: No rashes, No breakdown Neurological: Grossly intact Psych/Mental Status: Appropriate Assessment & Plan Assessment/Plan (1) Atrial fibrillation with RVR: PLAN: Plan 1. A. fib with RVR, remains in RVR Magnesium is 2.2, TSH is 1.08 Previous 2D echo in April 2021 showed an EF of 55%, mild mitral, tricuspid valve insufficiency Continue on IV amiodarone, Cardizem and heparin drip Follow-up on 2D echo and cardiology recommendations 2. POD #2 status post left carotid endarterectomy and patch angioplasty Continue with aspirin, Plavix, heparin drip 3. CAD s/p stent, stable Continue with aspirin, Plavix, metoprolol, lisinopril, isosorbide 4. Hypertension, relatively hypotensive on account of Cardizem drip and amiodarone Continue home medications Continue to monitor vitals 5. DVT Prophylaxis- Heparin drip Charges/Coding Visit Charges Inpatient E&M: 42477 Subs Hosp L2
[2021-11-13 11:54] LABS: Partial Thromboplast Time 32.9 Seconds (24.1-36.2)
[2021-11-13] MEDS: Digoxin 250 MCG/ML Ampul 500 MCG IV (12:18)
--- NOTE | 2021-11-13 12:24 | CON.PCM.CA_ITS ---
Assessment & Plan Assessment/Plan (1) Atrial fibrillation with RVR: PLAN: The patient has developed atrial fibrillation with rapid ventricular response. The possible etiologies include age, his cardiovascular condition, his recent peripheral vascular surgery, etc. He has not appeared to have any acute hemodynamic compromise/respiratory compromise. At the present time he continues to be monitored. He is initiating additional attempts at maintaining rate and rhythm with IV amiodarone. He has been placed on medical management with IV heparin. If over time he does not demonstrate improvement or conversion to sinus rhythm then consideration can be given, as the initiation of his atrial dysrhythmia is known, with an appropriate timeframe to consider a synchronized biphasic DC cardioversion unless otherwise contraindicated. (2) CAD (coronary artery disease): PLAN: He does have a history of CAD. He is undergone recent evaluation for such both noninvasively and invasively. He was to complete his peripheral vascular surgery and his general surgery so that he could proceed with antiplatelet therapy without interruption for a staged PCI procedure. (3) Presence of stent in coronary artery: PLAN: His most recent noninvasive and invasive studies are noted. Again he is continuing medical therapy. The plan was for a future staged PCI procedure once his noncardiac surgeries are complete. (4) Hyperlipidemia: QUALIFIERS: Hyperlipidemia type: unspecified Qualified Code(s): E78.5 - Hyperlipidemia, unspecified PLAN: He should continue risk factor modification and medical therapy. (5) Essential hypertension: PLAN: His blood pressure does need to be monitored during his adjustment of medications and his atrial dysrhythmia. (6) Status post carotid endarterectomy: PLAN: He is reported is healing well from his recent left carotid endarterectomy. He continues to be followed by peripheral vascular surgery. Addt'l Comments This note was generated using a voice recognition system and there may be incorrect words, spelling or punctuation that were not noted when reviewing the office note prior to saving. HPI Consult Data Date of Consult: 11/13/21 HPI Narrative HPI Narrative: NIKKO BARAJAS, is a 76 year old white male who presents for cardiovascular consultation based upon concerns of the development of atrial fibrillation with RVR superimposed upon a history of CAD, PCI, hyperlipidemia, hypertension, and c arotid artery disease status post carotid endarterectomy (left)-during this hospitalization. The patient has undergone elective left carotid endarterectomy. He has been recuperating in the ICU. He was noted to develop atrial fibrillation with rapid ventricular response. He was evaluated by the [facility] staff and treated with additional rate limiting therapy with IV diltiazem and with permission from peripheral vascular surgery the initiation of IV heparin. At the present time he continues in the ICU. He denies ongoing chest discomfort. He states that he did feel more shortness of breath and dyspnea. There was no loss of consciousness reported. He has continued his oral medical therapy. He was placed on IV medications as noted. He still continued with atrial fibrillation with a rapid ventricular response. He is still pending an upcoming inguinal hernia repair surgery. This was to be followed by a future elective staged PCI procedure once he is able to initiate and remain on antiplatelet therapy without interruption. [facility] Medical History (Updated 11/13/21 @ 12:[address] Tyson Leroy MD) Ambulates with cane Arthritis Atherosclerotic heart disease of [place] coronary artery without angina pectoris Cancer Cardiology follow-up encounter Carotid stenosis, bilateral Chest pain COPD (chronic obstructive pulmonary disease) Easy bruising Essential hypertension Excessive bleeding Former smoker Gastric reflux Gout History of heart attack History of hiatal hernia History of irregular heartbeat History of stress test Hyperlipidemia Hypertension Leg cramps Old myocardial infarction Shortness of breath on exertion Wears dentures Wears glasses Wears hearing aid Home Medications aspirin 325 mg tablet,delayed release (Ecotrin) 325 mg PO QDAY CLOTTING 05/22/17 [History Last Taken 11/10/21] clopidogrel 75 mg tablet (Plavix) 75 mg PO QDAY CLOTTING 05/22/17 [History Last Taken 11/10/21] pantoprazole 40 mg tablet,delayed release 40 mg PO QDAY GERD 05/22/17 [History Last Taken 11/11/21] albuterol sulfate 90 mcg/actuation aerosol inhaler (ProAir HFA) 2 puff inhalation Q6H PRN Wheezing 07/20/17 [History Last Taken 11/09/21] cholecalciferol (vitamin D3) 25 mcg (1,000 unit) capsule 3,000 unit PO DAILY VITAMIN 04/01/18 [History Last Taken 11/10/21] nitroglycerin 0.4 mg sublingual tablet 0.4 mg sublingual Q5-15M PRN chest pain #25 tabs 06/14/19 [Rx Last Taken Unknown] tiotropium bromide 2.5 mcg/actuation mist for inhalation (Spiriva Respimat) 2 inh inhalation QAM COPD 01/23/21 [History Last Taken 11/11/21] allopurinol 300 mg tablet 300 mg PO QDAY GOUT 11/11/21 [History Last Taken 11/10/21] atorvastatin 20 mg tablet 20 mg PO QDAY CHOLESTEROL 11/11/21 [History Last Taken 11/10/21] isosorbide mononitrate 30 mg tablet,extended release 24 hr 30 mg PO DAILY CARDIO 11/11/21 [History Last Taken 11/11/21] lisinopril 20 mg tablet 20 mg PO QDAY HYPERTENSION 11/11/21 [History Last Taken 11/11/21] metoprolol tartrate 25 mg tablet 25 mg PO BID HEART 11/11/21 [History Last Taken 11/11/21] Allergy/AdvReac Type Severity Reaction Status Date / Time bee venom protein (honey bee) Allergy Anaphylaxis Verified 11/11/21 09:53 Family History Father CVA (cerebral vascular accident) Mother CAD (coronary artery disease) Hx of CABG CHF (congestive heart failure) S/P MVR (mitral valve replacement) Brother COPD (chronic obstructive pulmonary disease) Diabetes Cancer lung Grandfather Colon cancer Surgical History (Updated 11/13/21 @ 12:[address] Tyson Leroy MD) H/O local excision of skin lesion History of brain surgery History of cardiac catheterization History of left knee surgery History of tonsillectomy Postsurgical percutaneous transluminal coronary angioplasty (PTCA) status Presence of stent in coronary artery (~01/22/11) S/P hernia repair Social History Smoking Status: Former smoker how long ago did patient quit smokin alcohol intake: never substance use type: does not use caffeine: Yes what type of physical activity do you participate in: walking frequency: daily ROS Constitutional Constitutional: Reports as per HPI Eyes Eyes: Reports as per HPI ENT HEENT: Reports as per HPI Cardiovascular Cardiovascular: Reports dyspnea Respiratory/Chest Respiratory/Chest: Reports dyspnea Gastrointestinal Gastrointestinal: Reports as per HPI Genitourinary Genitourinary: Reports as per HPI Musculoskeletal Musculoskeletal: Reports as per HPI Integumentary Integumentary: Reports as per HPI Neurologic Neurologic: Reports as per HPI Psychiatric Psychiatric: Reports as per HPI Physical Exam Const alert, oriented x3 and no apparent distress Orientation / Consciousness: awake HEENT normocephalic and head/scalp atraumatic Eyes PERRL, EOMs intact bilaterally, conjunctivae normal and no scleral icterus Neck full ROM, supple and no JVD Resp normal respiratory effort and clear to auscultation bilaterally Cardio Rhythm: abnormal rhythm irregularly irregular Heart Sounds: S1 normal and S2 normal GI normal to inspection, nondistended, normoactive bowel sounds Extremity no pedal edema Skin Skin Narrative: Status post left carotid artery endarterectomy incision Psych mental status grossly normal Risk Stratification Risk Stratification Applicable: No Procedure Criteria Type of Procedure Procedure Type: Elective Elective Risks - COVID COVID Risk Discussion: The surgeon/proceduralist and patient have discussed in detail the risk of exposure to and/or potential harm posed by the COVID-19 virus with having a surgery/procedure at this time versus the risk of delaying the surgery/pr ocedure. It is not possible to know either the risk of delaying the surgery or procedure or chance of getting an infection with perfect accuracy, but a joint decision was made between the patient and the surgeon/proceduralist to proceed at this time with the scheduled surgery/procedure as indicated on the consent form. Objective Data Vital Signs: Vital Signs Temp Pulse Resp BP Pulse Ox O2 Del Method O2 Flow Rate 98.2 F 106 H 17 99/59 L 93 Room Air 1 11/13/21 12:00 11/13/21 12:18 11/13/21 12:00 11/13/21 12:18 11/13/21 12:00 11/13/21 12:00 11/13/21 07:15 FiO2 96 11/12/21 00:00 Oxygen Flow Rate (L/min) 1 Oxygen Delivery Method Room Air Weight: 169 lb 8.568 oz Body Mass Index (BMI) 28.7 Intake & Output: Intake and Output for Last 24 Hours 11/11/21 11/12/21 11/13/21 23:59 23:59 23:59 Intake Total 1110 / 1110 819.25 / 819.25 140.66 / 140.66 Output Total 50 / 50 250 / 250 400 / 400 Balance 1060 / 1060 569.25 / 569.25 -259.34 / -259.34 Lab / Micro Data Result Diagrams: 11/12/21 03:30 11/13/21 04:35 Labs: Laboratory Results - last 24 hr 11/13/21 04:35: PT 13.9, INR 1.1, APTT 30.1 11/13/21 04:35: Sodium 135 L, Potassium 3.8, Chloride 101, Carbon Dioxide 26.0, Anion Gap 8, BUN 19 H, Creatinine 0.75, Estim Creat Clear Calc 58.48, Est GFR (MDRD) Af Amer 131, Est GFR (MDRD) Non-Af 108, BUN/Creatinine Ratio 25.3 H, Glucose 120 H, Calcium 8.2 L, Magnesium 2.2, TSH 1.08 11/13/21 11:33: APTT 32.9 Cardiology Labs/Tests 11/13/21 04:35: PT 13.9, INR 1.1, APTT 30.1 11/13/21 04:35: Sodium 135 L, Potassium 3.8, Chloride 101, Carbon Dioxide 26.0, Anion Gap 8, BUN 19 H, Creatinine 0.75, Est GFR (MDRD) Af Amer 131, Est GFR (MDRD) Non-Af 108, BUN/Creatinine Ratio 25.3 H, Glucose 120 H, Calcium 8.2 L, Magnesium 2.2 11/13/21 11:33: APTT 32.9 Rhythm: EKG: Atrial fibrillation with rapid ventricular response; ST segment abnormality ECHO: 04-25-2021 Interpretation Summary The study was technically difficult. ? Segmental dysfunction with preserved ejection fraction (see wall motion). The estimated ejection fraction is 55 %. The left atrium is mildly enlarged. There is moderate mitral annular calcification. Extension of the mitral annular calcification on the base of the posterior mitral valve leaflet. Mild (1+) mitral valve insufficiency. Mild tricuspid valve insufficiency. Aortic sclerosis, no stenosis. Mild (1+) pulmonic valve insufficiency. Unable to estimate RV systolic pressure/pulmonary artery pressure due to technically difficult study. Diastolic function is indeterminate. Stress Test: Stress Test Report Date: 08-22-2021 Procedure: Exercise tolerance test/imaging study Indications: Shortness of breath/dyspnea on exertion; CAD; PCI; preoperative cardiovascular evaluation Consent: Per the patient Procedure: The patient exercised on a Lopez protocol for 6 minutes completing Stage II achieving a peak heart rate of 125 bpm (85% predicted maximal heart rate) with a peak blood pressure 200/82 mmHg and a peak MET capacity of 7 METs. The baseline ECG demonstrated normal sinus rhythm; PVCs.? The peak exercise ECG demonstrated no obvious ECG changes. There was an occasional PVC pretest, during exercise, and recovery and a rare ventricular couplet during exercise and an isolated ventricular triplet during exercise.? The functional capacity was considered good. There was no complaint of chest discomfort during exercise or recovery. The examination was discontinued secondary to dyspnea. Impression: 1.? Technically adequate (percent predicted maximal heart rate greater than 85%) exercise tolerance test 2.? Peak exercise ECG with no obvious ECG change 3.? There was an occasional PVC pretest, during exercise, and recovery and a rare ventricular couplet during exercise and an isolated ventricular triplet during exercise 4.? Nuclear images pending Myocardial perfusion imaging study: Technique: The patient was injected with 11.9 mCi of technetium 99m Cardiolite and subsequently rest SPECT Cardiolite nuclear imaging was obtained in the horizontal long, vertical long, and short axis views. The patient exercised on a Lopez protocol for 6 minutes completing Stage II achieving a peak heart rate of 125 bpm (85% predicted maximal heart rate) with a peak blood pressure 200/82 mmHg and a peak MET capacity of 7 METs. The patient was injected with 33.3 mCi of technetium 99m Cardiolite and subsequently stress SPECT Cardiolite nuclear imaging was obtained in the horizontal long, vertical long, and short axis views.? A gated Cardiolite study at peak stress was obtained. Interpretation: Rest and stress SPECT Cardiolite nuclear imaging status post realignment, normalization, and attenuation correction, demonstrates the appearance of diminished absence of myocardial perfusion/tracer uptake in portions of the distal anterior/anteroapical segments with post myocardial perfusion changes appearing somewhat more prominent in the distal anterior apical areas.? There is diminished end-systolic thickening and brightening in the aforementioned areas.? The gated Cardiolite study demonstrates myocardial thickening and inward wall motion.? The reported LVEF is 59%. Impression: 1.? Rest and stress SPECT Cardiolite nuclear imaging demonstrate myocardial perfusion changes compatible with an area of previous myocardial injury/infarction in portions of the distal anterior/anteroapical areas with post stress myocardial perfusion changes appearing compatible with an element of robb-infarct related myocardial ischemia. 2.? The gated Cardiolite study reports an LVEF of 59%. Cardiac Cath: 09-24-2021 CONCLUSIONS Elevated Left Ventricular End Diastolic Pressure (mild) [facility] Multivessel CAD RECOMMENDATIONS Risk factor modification Medical therapy Staged percutaneous intervention (s/p completion of non cardiac surgery) Case discussed / reviewed with Dr. Vance of Interventional Cardiology DESCRIPTION OF? PROCEDURE The patient arrived to the procedure lab. The risks and benefits of the procedure as well as a full description of our services here and current unavailability of surgical backup were fully explained to the patient and/or their significant other prior to the catheterization. The Timeout was completed, verifying the correct patient and procedure. The patient's procedural site was prepped and draped in the usual fashion. Local anesthetic was given subcu taneously to right groin region with Lidocaine 2%. Using a modified Seldinger technique, arterial access was obtained via the right femoral artery, a 4Fr sheath was inserted? Left Coronary Artery selective angiography was performed in multiple views using a 4 Fr. JL5 catheter. Right Coronary Artery selective angiography was then performed in multiple views using a 4 Fr. 3DRC catheter. LV to AO pullback pressures were then recorded w/ 3DRC.The arterial sheath was pulled and manual compression applied until hemostasis is achieved. CORONARY ANGIOGRAPHY DOMINANCE:? Right Dominant LEFT HEART ASSESSMENT Left Ventricular Ejection Fraction: Not assessed Elevated Left Ventricular End Diastolic Pressure LVEDP: 16 mmHg LEFT MAIN: distal: eccentric: 25 % Stenosis LEFT ANTERIOR DESCENDING ARTERY: PROX LAD: Previously placed stent is patent MID LAD: Previously placed stent has an instent 75 % restenosis DISTAL LAD: Previously placed stent is patent CIRCUMFLEX ARTERY: PROX CIRC: Previously placed stent has an instent 75 % restenosis MID CIRC: Previously placed stent is patent RIGHT CORONARY ARTERY: PROX RCA: Previously placed stent is patent MID RCA: Previously placed stent is patent Radiography Diagnostic Testing: Radiology Impression Chest X-Ray 11/13/21 05:55 IMPRESSION: Mild degree of increased markings at the lung bases slightly worse on the right side suggestive of bibasilar atelectasis and/or early infiltrates. Follow-up recommended. Electronically Signed: Arjun Shaver MD at 9:16 EDT ,
[2021-11-13] MEDS: Amiodarone 360 MG in Dextrose 5% Viaflo Bag 192.8 ML 16.7 MG CONT INF (15:00)
[2021-11-13] MEDS: HEPARIN/D5w 25,000 UNITS 25,000 UNITS/250 ML IV.SOLN. 11 UNITS CONT INF (16:30)
[2021-11-13] MEDS: Atorvastatin Calcium 20 MG Tablet PO (19:44)
--- NOTE | 2021-11-13 19:50 | EKG12_ITS ---
Test Reason : RYTHMN CHANGE Blood Pressure : / mmHG Vent. Rate : 080 BPM Atrial Rate : 080 BPM P-R Int : 134 ms QRS Dur : 080 ms QT Int : 378 ms P-R-T Axes : 049 -05 034 degrees QTc Int : 435 ms Sinus rhythm with Premature atrial complexes Otherwise normal ECG When compared with ECG of 05-NOV-2021 12:56, Premature atrial complexes are now Present Confirmed by KIM THOMAS, MAGDIEL ([id number]), editor dictionary MAYELA THOMASON ([id number]) on 11/20/2021 11:24:26 AM Referred By: Blade Dahl Confirmed By:MAGDIEL ALVAREZ MD
[2021-11-14] VITALS (26 sets, daily range): BP systolic 95–163; BP diastolic 49–93; PULSE 59–100; RESP 12–19; TEMP 36.8–37.1; O2SAT 93–99
[2021-11-14] MEDS: Amiodarone 360 MG in Dextrose 5% Viaflo Bag 192.8 ML 16.7 MG CONT INF (04:40)
[2021-11-14 05:36] LABS: Partial Thromboplast Time 54.9 Seconds (24.1-36.2)
[2021-11-14] MEDS: Ipratropium 0.5 MG/2.5 ML SOLUTION INHALATION ×3 (07:25→19:24)
[2021-11-14] MEDS: Allopurinol 300 MG Tablet PO (08:52)
[2021-11-14] MEDS: Aspirin 325 MG Tablet PO (08:52)
[2021-11-14] MEDS: Lisinopril 20 MG Tablet PO (09:41)
[2021-11-14] MEDS: Amiodarone 200 MG Tablet PO ×3 (09:41→21:38)
[2021-11-14] MEDS: Clopidogrel Bisulfate 75 MG Tablet PO (09:41)
[2021-11-14] MEDS: Isosorbide Mononitrate 30 MG Tablet PO (09:41)
[2021-11-14] MEDS: Metoprolol Tartrate 25 MG Tablet PO ×2 (09:41→21:38)
[2021-11-14] MEDS: APIXABAN 5 MG TABLET PO ×2 (09:41→21:39)
[2021-11-14] MEDS: Pantoprazole Sodium 40 MG Tablet PO (09:41)
--- NOTE | 2021-11-14 10:00 | PCM.PN.HOSP ---
Subjective Subjective Follow-up on postop medical management: Patient was seen and examined. Patient is off the Cardizem and amiodarone drip. Currently normal sinus rhythm. Started on oral amiodarone. Denied any chest pain or dizziness or any pain. No acute events overnight. Objective Data Objective Data Vital Signs: Vital Signs Temp Pulse Resp BP Pulse Ox O2 Del Method O2 Flow Rate 98.2 F 68 13 163/68 H 99 Nasal Cannula 2 11/14/21 08:00 11/14/21 09:41 11/14/21 09:00 11/14/21 09:00 11/14/21 09:00 11/14/21 09:00 11/14/21 09:00 FiO2 96 11/12/21 00:00 Oxygen Flow Rate (L/min) 2 Oxygen Delivery Method Nasal Cannula Weight: 77.7 kg Body Mass Index (BMI) 28.7 Intake & Output: Intake and Output for Last 24 Hours 11/12/21 11/13/21 11/14/21 23:59 23:59 23:59 Intake Total 819.25 / 819.25 842.29 / 962.29 442.53 / 442.53 Output Total 250 / 250 950 / 1350 400 / 400 Balance 569.25 / 569.25 -107.71 / -387.71 42.53 / 42.53 Lab / Micro Data Result Diagrams: 11/12/21 03:30 11/13/21 04:35 Labs: Laboratory Results - last 24 hr 11/13/21 11:33: APTT 32.9 11/13/21 22:20: APTT 52.0 H 11/14/21 04:58: APTT 54.9 H Radiography Diagnostic Testing: Radiology Impression Echocardiogram 11/13/21 04:49 Interpretation Summary The study was technically difficult. Segmental dysfunction with preserved ejection fraction (see wall motion). The estimated ejection fraction is 55 %. The left atrium is mildly enlarged. There is moderate mitral annular calcification. Extension of the mitral annular calcification onto the base of the posterior mitral valve leaflet. The mitral papillary muscle appears thickened and/or calcified. Mild-Moderate (1-2+) mitral valve insufficiency. Mild tricuspid valve insufficiency. Mild diffuse aortic valve thickening. Mild focal aortic valve calcification. Mild (1+) pulmonic valve insufficiency. Calcified aortic root. Right ventricular systolic pressure estimated to be 34 mmHg. Unable to assess diastolic dysfunction. Ordering Physician: David Sherwood Referring Physician: Blade Dahl Performed By: Marifer Gold RDCS, RVT Physical Exam Narrative Physical exam: General: Alert, Oriented x3, Cooperative, not pale, not jaundiced HEENT: Left sided wound on the neck, clean, dry Oral: Moist Mucosa Neck: Supple Lungs: Diminished to auscultation Cardiovascular: HS I+II, regular, no murmurs Abdomen: Bowel Sounds Present, Soft, Non Tender Extremities: No edema Skin: No rashes, No breakdown Neurological: Grossly intact Psych/Mental Status: Appropriate Assessment & Plan Assessment/Plan (1) Atrial fibrillation with RVR: PLAN: Plan 1. Postop A. fib with RVR, in normal sinus rhythm, rate controlled Magnesium is 2.2, TSH is 1.08 2D echo showed EF of 55%, mild valvular disease Continue on oral amiodarone, metoprolol, Eliquis Follow-up on 2D echo and cardiology recommendations 2. POD #3 status post left carotid endarterectomy and patch angioplasty Continue with aspirin, Plavix, Eliquis 3. CAD s/p stent, stable Continue with aspirin, Plavix, metoprolol, lisinopril, isosorbide 4. Hypertension, relatively hypotensive on account of Cardizem drip and amiodarone Continue home medications Continue to monitor vitals 5. DVT Prophylaxis-Eliquis Charges/Coding Visit Charges Inpatient E&M: 68923 Subs Hosp L2
--- NOTE | 2021-11-14 11:27 | PCM.PN.CARD ---
Subjective Subjective The patient was evaluated earlier this day in the ICU. He appeared to be resting comfortably. He had not been complaining of ongoing chest discomfort or worsening shortness of breath/dyspnea. He states he slept better yesterday evening. Objective Data Vital Signs: Vital Signs Temp Pulse Resp BP Pulse Ox O2 Del Method O2 Flow Rate 98.2 F 76 14 108/51 L 96 Nasal Cannula 2 11/14/21 08:00 11/14/21 11:00 11/14/21 11:00 11/14/21 11:00 11/14/21 11:00 11/14/21 11:00 11/14/21 11:00 FiO2 96 11/12/21 00:00 Oxygen Flow Rate (L/min) 2 Oxygen Delivery Method Nasal Cannula Weight: 171 lb 4.787 oz Body Mass Index (BMI) 28.7 Intake & Output: Intake and Output for Last 24 Hours 11/12/21 11/13/21 11/14/21 23:59 23:59 23:59 Intake Total 819.25 / 819.25 842.29 / 962.29 523.25 / 523.25 Output Total 250 / 250 950 / 1350 400 / 400 Balance 569.25 / 569.25 -107.71 / -387.71 123.25 / 123.25 Lab / Micro Data Result Diagrams: 11/12/21 03:30 11/13/21 04:35 Labs: Laboratory Results - last 24 hr 11/13/21 11:33: APTT 32.9 11/13/21 22:20: APTT 52.0 H 11/14/21 04:58: APTT 54.9 H Cardiology Labs/Tests 11/13/21 11:33: APTT 32.9 11/13/21 22:20: APTT 52.0 H 11/14/21 04:58: APTT 54.9 H Rhythm: Sinus rhythm Radiography Diagnostic Testing: Radiology Impression Echocardiogram 11/13/21 04:49 Interpretation Summary The study was technically difficult. Segmental dysfunction with preserved ejection fraction (see wall motion). The estimated ejection fraction is 55 %. The left atrium is mildly enlarged. There is moderate mitral annular calcification. Extension of the mitral annular calcification onto the base of the posterior mitral valve leaflet. The mitral papillary muscle appears thickened and/or calcified. Mild-Moderate (1-2+) mitral valve insufficiency. Mild tricuspid valve insufficiency. Mild diffuse aortic valve thickening. Mild focal aortic valve calcification. Mild (1+) pulmonic valve insufficiency. Calcified aortic root. Right ventricular systolic pressure estimated to be 34 mmHg. Unable to assess diastolic dysfunction. Ordering Physician: David Sherwood Referring Physician: Blade Dahl Performed By: Marifer Gold RDCS, RVT Physical Exam Const alert, oriented x3 and no apparent distress Orientation / Consciousness: awake HEENT normocephalic and head/scalp atraumatic Eyes PERRL, EOMs intact bilaterally, conjunctivae normal and no scleral icterus Neck full ROM, supple and no JVD Resp normal respiratory effort and clear to auscultation bilaterally Cardio regular rate and regular rhythm Heart Sounds: S1 normal and S2 normal GI normal to inspection, nondistended, normoactive bowel sounds Extremity no pedal edema Skin Skin Narrative: Status post left carotid artery endarterectomy incision Psych mental status grossly normal Assessment & Plan Assessment/Plan (1) Atrial fibrillation with RVR: PLAN: The patient has developed atrial fibrillation with rapid ventricular response. The possible etiologies include age, his cardiovascular condition, his recent peripheral vascular surgery, etc. He has not appeared to have any acute hemodynamic compromise/respiratory compromise. At the present time he continues to be monitored. He was treated medically with additional rate control and antiarrhythmic therapy as well as his anticoagulant therapy. He has had return to sinus rhythm. At the moment his medications are being adjusted from IV to oral. Hopefully he will remain in sinus rhythm and tolerate his medications and be able to continue with future outpatient cardiovascular follow-up. (2) CAD (coronary artery disease): PLAN: He does have a history of CAD. He is undergone recent evaluation for such both noninvasively and invasively. He was to complete his peripheral vascular surgery and his general surgery so that he could proceed with antiplatelet therapy without interruption for a staged PCI procedure. (3) Presence of stent in coronary artery: PLAN: His most recent noninvasive and invasive studies are noted. Again he is continuing medical therapy. The plan was for a future staged PCI procedure once his noncardiac surgeries are complete. (4) Hyperlipidemia: QUALIFIERS: Hyperlipidemia type: unspecified Qualified Code(s): E78.5 - Hyperlipidemia, unspecified PLAN: He should continue risk factor modification and medical therapy. (5) Essential hypertension: PLAN: His blood pressure does need to be monitored during his adjustment of medications and his atrial dysrhythmia. (6) Status post carotid endarterectomy: PLAN: He is reported is healing well from his recent left carotid endarterectomy. He continues to be followed by peripheral vascular surgery. Addt'l Comments This note was generated using a voice recognition system and there may be incorrect words, spelling or punctuation that were not noted when reviewing the office note prior to saving. Procedure Criteria Type of Procedure Procedure Type: Elective Elective Risks - COVID COVID Risk Discussion: The surgeon/proceduralist and patient have discussed in detail the risk of exposure to and/or potential harm posed by the COVID-19 virus with having a surgery/procedure at this time versus the risk of delaying the surgery/procedure. It is not possible to know either the risk of delaying the surgery or procedure or chance of getting an infection with perfect accuracy, but a joint decision was made between the patient and the surgeon/proceduralist to proceed at this time with the scheduled surgery/procedure as indicated on the consent form.
--- NOTE | 2021-11-14 16:38 | CASEMGMT ---
GORDY LEE NOTE: Therapy notes have been reviewed. GORDY LEE to room. Introduced self and role. Pt sitting up in recliner chair. Discussed discharge planning and therapy. Pt states he has gone to [facility] for OP therapy in the past and would like to do that again. GORDY LEE informed he a script can be provided prior to discharge and he can take to location of choice. He voices understanding. [employer] 30-day savings card also given at this time and instructed on use. He was made aware, if refills are not affordable, to discuss this w/[facility]. He states he will do this and also plans [facility]. Questions answered. Pt denies having further questions or concerns at this time. Gretta DOMÍNGUEZ RN CM
--- NOTE | 2021-11-14 19:56 | PCM.PN.SRG ---
Subjective Subjective Feeling better. Sinus rhythm since overnight. Switched to Eliquis. Objective Data Objective Data Vital Signs: Vital Signs Temp Pulse Resp BP Pulse Ox O2 Del Method O2 Flow Rate 98.8 F 89 16 114/72 96 Room Air 2 11/14/21 18:00 11/14/21 19:25 11/14/21 19:25 11/14/21 18:00 11/14/21 18:00 11/14/21 18:00 11/14/21 11:00 FiO2 96 11/12/21 00:00 Oxygen Flow Rate (L/min) 2 Oxygen Delivery Method Room Air Weight: 171 lb 4.787 oz Body Mass Index (BMI) 28.7 Intake & Output: Intake and Output for Last 24 Hours 11/12/21 11/13/21 11/14/21 23:59 23:59 23:59 Intake Total 819.25 / 819.25 842.29 / 962.29 523.25 / 523.25 Output Total 250 / 250 950 / 1350 900 / 900 Balance 569.25 / 569.25 -107.71 / -387.71 -376.75 / -376.75 Lab / Micro Data Result Diagrams: 11/12/21 03:30 11/13/21 04:35 Labs: Laboratory Results - last 24 hr 11/13/21 22:20: APTT 52.0 H 11/14/21 04:58: APTT 54.9 H Physical Exam Const alert, oriented x3, no apparent distress and healthy appearing General Appearance: cooperative; Negative for combative or lethargic Orientation / Consciousness: awake Exam Limitations: no limitations HEENT Head and Scalp: normocephalic and atraumatic Eyes EOMs intact bilaterally General Eye: normal appearance of both eyes Neck full ROM Neck Narrative: soft, no hematoma General: trachea midline Resp normal respiratory effort and no use of accessory muscles Effort and Inspection: Negative for labored, stridor or audible wheezes Cardio regular rate and regular rhythm Back/Spine Cervical Spine: cervical ROM normal Skin Skin Narrative: Incision clean, dry, intact, no erythema Neuro oriented x3, CN's II-XII intact bilaterally, no focal motor deficits and no sensory deficits noted Psych thought process normal, cooperative, affect normal, speech normal and activity/motor behavior normal Assessment & Plan Assessment/Plan (1) Status post carotid endarterectomy: PLAN: -POD # 3 left CEA -cont in NSR -PO anticoagulation -observe overnight, PCU status -plan DC in AM
--- NOTE | 2021-11-14 20:02 | DS.PCM_ITS ---
Providers Date of Admission: 11/11/21 Date of Discharge: 11/17/21 Primary Care Physician: Dr. Humphrey Maher, Consultations 11/13/21 03:15 Consult: Hospitalist Routine Consulting Provider: David Sherwood Reason for Consult: New onset Afib EMERGENT Consult: No Notified: Yes Date Notified: 11/13/21 Time Notified: 03:15 Method of Notification: Text 11/13/21 06:47 Consult: Cardiology Routine Consulting Provider: Tyson Leroy Reason for Consult: Afib with RVR EMERGENT Consult: No Notified: Yes Date Notified: 11/13/21 Time Notified: 06:47 Method of Notification: Verbal Reason For Visit: LT CAROTID Diagnosis Discharge Diagnosis (1) Status post carotid endarterectomy: Status: Acute Code(s): Z98.890 - Other specified postprocedural states Plan: -POD # 6 left CEA -remains NSR -felling well today, ready for home -DC Medications at Discharge Home Medications clopidogrel 75 mg tablet (Plavix) 75 mg PO QDAY CLOTTING 05/22/17 pantoprazole 40 mg tablet,delayed release 40 mg PO QDAY GERD 05/22/17 albuterol sulfate 90 mcg/actuation aerosol inhaler (ProAir HFA) 2 puff inhalation Q6H PRN Wheezing 07/20/17 cholecalciferol (vitamin D3) 25 mcg (1,000 unit) capsule 3,000 unit PO DAILY VITAMIN 04/01/18 nitroglycerin 0.4 mg sublingual tablet 0.4 mg sublingual Q5-15M PRN chest pain #25 tabs 06/14/19 tiotropium bromide 2.5 mcg/actuation mist for inhalation (Spiriva Respimat) 2 inh inhalation QAM COPD 01/23/21 allopurinol 300 mg tablet 300 mg PO QDAY GOUT 11/11/21 atorvastatin 20 mg tablet 20 mg PO QDAY CHOLESTEROL 11/11/21 lisinopril 20 mg tablet 20 mg PO QDAY HYPERTENSION 11/11/21 amiodarone 200 mg tablet 200 mg PO BID 7 days #14 tabs 11/17/21 amiodarone 200 mg tablet 200 mg PO DAILY 30 days #30 tabs 11/17/21 amiodarone 200 mg tablet 200 mg PO TID 5 days #15 tabs 11/17/21 apixaban 5 mg tablet (Eliquis) 5 mg PO BID #60 tabs 11/17/21 metoprolol tartrate 25 mg tablet 75 mg PO BID 30 days #180 tabs 11/17/21 Hospital Course Operations - (left carotid endarterectomy ) Summary of Care Provided Hospital Course: Mr. Clifford presented for elective outpatient left carotid endarterectomy on 11/11. He tolerated the surgery well and was admitted to the ICU for neurologic and hemodynamic monitoring. On POD #1 he was doing well, tolerating diet, hemodynamically stable. He was unsteady when ambulating so it was felt another night admitted was appropriate. That evening he developed A.fib with RVR which initially was refractory to efforts at rate control and pharmacologic conversion to NSR. Eventually he did convert to sinus and remained after being placed on IV amiodarone and several recurrent episodes of a.fib. He was initially anticoagulated with heparin then converted to Eliquis, as well as oral amio. On 11/17 he remained stable and was ready for discharge to home. Discharged on Eliquis, Amiodarone. Continued on Plavix; ASA discontinued. Physical Exam Const alert, oriented x3, no apparent distress and healthy appearing General Appearance: cooperative; Negative for combative or lethargic Orientation / Consciousness: awake Exam Limitations: no limitations HEENT Head and Scalp: normocephalic and atraumatic Eyes EOMs intact bilaterally General Eye: normal appearance of both eyes Neck full ROM Neck Narrative: Inc C/D/I, no hematoma or erythema General: trachea midline Resp normal respiratory effort and no use of accessory muscles Effort and Inspection: Negative for labored, stridor or audible wheezes Cardio regular rate, regular rhythm and no murmurs Peripheral Pulses: brachial pulses present, radial pulses present, femoral pulses present, popliteal pulses present, posterior tibial pulses present and dorsalis pedis pulses present Back/Spine Cervical Spine: cervical ROM normal Skin no rashes or lesions noted and no wounds Neuro oriented x3, CN's II-XII intact bilaterally, no focal motor deficits and no sensory deficits noted Psych thought process normal, cooperative, affect normal, speech normal and activity/motor behavior normal Weight / BMI Weight Weight: 171 lb 4.787 oz Body Mass Index (BMI) 28.7 ABG / Lab / Microbiology Data Result Diagrams: 11/16/21 03:15 11/16/21 03:15 Laboratory: Laboratory Results - last 24 hr 11/13/21 22:20: APTT 52.0 H 11/14/21 04:58: APTT 54.9 H D/C Instructions Discharge Diet: Low fat / Low cholesterol Discharge Activity: No Restrictions, May Drive (when not taking pain me dications), May Shower and - (Do not lift greater than 20 lbs for 3 weeks. Do not submerge incision for 3 weeks) Lifting Restricted to (Lbs): 20 Call your doctor if your incision/area has: Sudden Increased Bleeding, Increased Pain/ Swelling, Increased Redness and Foul Smelling Discharge Call your doctor if you observe: Fever of 101 or Higher Cleanse incision/area with: Soap & Water (with showers. Wash and dry gently ) Please Follow Up With: Blade Dahl MD Meaningful Use Info Meaningful Use Diagnoses (Choose all that apply): None applicable Discharge Plan Admission Admit Date/Time: 11/11/21 09:27 Primary Reason for Your Visit: left carotid endarterectomy Attending Provider: Blade Dahl Primary Care Provider: Humphrey Maher Consulting Providers: Ching Rodríguez ; Tyson Leroy ; David Sherwood Discharge Orders/Prescriptions Prescriptions: New amiodarone 200 mg Tablet 200 mg PO TID 5 Days Qty: 15 0RF Rx Instructions: last dose 11/21/21 morning amiodarone 200 mg Tablet 200 mg PO BID 7 Days Qty: 14 0RF Rx Instructions: from 11/21/21 evening to 11/28/21 evening amiodarone 200 mg Tablet 200 mg PO DAILY 30 Days Qty: 30 0RF Rx Instructions: from 11/29/21 morning metoprolol tartrate 25 mg Tablet 75 mg PO BID 30 Days Qty: 180 0RF Eliquis 5 mg Tablet 5 mg PO BID Qty: 60 0RF Continued albuterol sulfate [ProAir HFA] 90 mcg/actuation HFA aerosol inhaler 2 puff INHALATION Q6H PRN (Reason: Wheezing) cholecalciferol (vitamin D3) 1,000 unit capsule 1,000 unit capsule 3,000 unit PO DAILY nitroglycerin 0.4 mg tablet, sublingual 0.4 mg SUBLINGUAL Q5-15M PRN (Reason: chest pain) Qty: 25 1RF Spiriva Respimat 2.5 mcg/actuation mist 2 inh inhalation QAM atorvastatin 20 mg tablet 20 mg PO QDAY lisinopril 20 mg tablet 20 mg PO QDAY allopurinol 300 mg tablet 300 mg PO QDAY pantoprazole 40 mg tablet,delayed release (DR/EC) 40 mg PO QDAY clopidogrel [Plavix] 75 mg tablet 75 mg PO QDAY Discontinued isosorbide mononitrate 30 mg tablet extended release 24 hr 30 mg PO DAILY metoprolol tartrate 25 mg tablet 25 mg PO BID aspirin [Ecotrin] 325 mg tablet,delayed release (DR/EC) 325 mg PO QDAY Referrals / Follow Up: Humphrey Maher DO [Primary Care Provider] - Within 1 Week Tyson Leroy MD [Med Staff - Active Staff] - Within 2 Weeks Disposition Disposition (needs filled in before D/C Order can be placed): Home, Self Care
--- NOTE | 2021-11-14 20:23 | DCINST_ITS ---
Discharge Instructions Diet Discharge Diet: Low fat / Low cholesterol Activity May shower in (days): 0 Lifting Restrictions: No more than 20 lbs for 3 weeks Additional Activity Instructions:: Do not submerge incision for 3 weeks Dressing / Incision Call your doctor if your incision/area has: Sudden Increased Bleeding, Increased Pain/ Swelling, Increased Redness and Foul Smelling Discharge Call your doctor if you observe: Fever of 101 or Higher Cleanse incision/area with: Soap & Water (with showers. Wash and dry gently ) Follow Up Care Please Follow Up With: Blade Dahl MD Test Results: Test results from this visit will be discussed in further detail at your follow- up appointment, if applicable. Discharge Plan Admission Admit Date/Time: 11/11/21 09:27 Primary Reason for Your Visit: left carotid endarterectomy Attending Provider: Blade Dahl Primary Care Provider: Humphrey Maher Consulting Providers: Ching Rodríguez ; Tyson Leroy ; David Sherwood Discharge Orders/Prescriptions Prescriptions: New amiodarone 200 mg Tablet 200 mg PO TID 5 Days Qty: 15 0RF Rx Instructions: last dose 11/21/21 morning amiodarone 200 mg Tablet 200 mg PO BID 7 Days Qty: 14 0RF Rx Instructions: from 11/21/21 evening to 11/28/21 evening amiodarone 200 mg Tablet 200 mg PO DAILY 30 Days Qty: 30 0RF Rx Instructions: from 11/29/21 morning metoprolol tartrate 25 mg Tablet 75 mg PO BID 30 Days Qty: 180 0RF Eliquis 5 mg Tablet 5 mg PO BID Qty: 60 0RF Continued albuterol sulfate [ProAir HFA] 90 mcg/actuation HFA aerosol inhaler 2 puff INHALATION Q6H PRN (Reason: Wheezing) cholecalciferol (vitamin D3) 1,000 unit capsule 1,000 unit capsule 3,000 unit PO DAILY nitroglycerin 0.4 mg tablet, sublingual 0.4 mg SUBLINGUAL Q5-15M PRN (Reason: chest pain) Qty: 25 1RF Spiriva Respimat 2.5 mcg/actuation mist 2 inh inhalation QAM atorvastatin 20 mg tablet 20 mg PO QDAY lisinopril 20 mg tablet 20 mg PO QDAY allopurinol 300 mg tablet 300 mg PO QDAY pantoprazole 40 mg tablet,delayed release (DR/EC) 40 mg PO QDAY clopidogrel [Plavix] 75 mg tablet 75 mg PO QDAY Discontinued isosorbide mononitrate 30 mg tablet extended release 24 hr 30 mg PO DAILY metoprolol tartrate 25 mg tablet 25 mg PO BID aspirin [Ecotrin] 325 mg tablet,delayed release (DR/EC) 325 mg PO QDAY Referrals / Follow Up: Humphrey Maher DO [Primary Care Provider] - Within 1 Week Tyson Leroy MD [Med Staff - Active Staff] - Within 2 Weeks Disposition Disposition (needs filled in before D/C Order can be placed): Home, Self Care
[2021-11-14] MEDS: Atorvastatin Calcium 20 MG Tablet PO (21:39)
[2021-11-15] VITALS (24 sets, daily range): BP systolic 102–152; BP diastolic 65–106; PULSE 66–157; RESP 14–19; TEMP 36.1–36.8; O2SAT 93–98
[2021-11-15] MEDS: Amiodarone 200 MG Tablet PO ×3 (06:19→21:33)
[2021-11-15] MEDS: Ipratropium 0.5 MG/2.5 ML SOLUTION INHALATION ×2 (07:34→19:15)
[2021-11-15 07:43] LABS: Hematocrit 34.1 % (40-54); Hemoglobin 11.7 g/dL (13.0-16.5); Mean Corp Hgb Conc 34.3 g/dL (32-36); Mean Corpuscular Hgb 31.5 pg (27.0-32.0); Mean Corpuscular Volume 91.9 fL (80-94); Mean Platelet Vol. 10.6 fl (6.2-12.0); POSITIVE COUNT YES; POSITIVE DIFFERENTIAL YES; POSITIVE MORPHOLOGY YES; RBC Distribution Width CV 13.6 % (11.6-14.6); RBC Distribution Width SD 45.8 fl (35.1-43.9); Red Blood Count 3.71 M/mm3 (4.6-6.2); White Blood Count 26.6 K/mm3 (4.4-11.0)
[2021-11-15 07:52] LABS: Differential Indicated MANUAL DIFF
[2021-11-15 07:56] LABS: ALB/GLOB Ratio 0.8 RATIO (0.9-2.4); AST(SGOT) 55 U/L (15-37); Alanine Aminotransfer ALT/SGPT 25 U/L (16-61); Alkaline Phosphatase 94 U/L (45-117); Anion Gap 16 (5-15); BUN 17 mg/dL (7-18); BUN/Creat Ratio 23.2 RATIO (10-20); Calcium,Total 8.2 mg/dL (8.5-10.1); Chloride 103 mmol/L (98-107); Creatinine, Serum 0.73 mg/dL (0.70-1.30); EST Glomerular Filtration Rate 111 mL/min (>60); Est Glom Filt Rate - Afr Amer 135 mL/min (>60); Estimated Creatinine Clearance 58.48 ml/min; Glucose 82 mg/dL (74-106); Magnesium 2.3 mg/dL (1.6-2.6); Potassium 4.6 mmol/L (3.5-5.1); Sodium Level 136 mmol/L (136-145)
[2021-11-15] MEDS: Lisinopril 20 MG Tablet PO (07:58)
[2021-11-15] MEDS: Metoprolol Tartrate 25 MG Tablet PO ×2 (07:58→09:40)
[2021-11-15] MEDS: Aspirin 325 MG Tablet PO (08:00)
[2021-11-15] MEDS: Clopidogrel Bisulfate 75 MG Tablet PO (08:00)
[2021-11-15] MEDS: Isosorbide Mononitrate 30 MG Tablet PO (08:00)
[2021-11-15] MEDS: APIXABAN 5 MG TABLET PO ×2 (08:00→21:32)
[2021-11-15] MEDS: Allopurinol 300 MG Tablet PO (08:00)
[2021-11-15] MEDS: Pantoprazole Sodium 40 MG Tablet PO (08:00)
[2021-11-15 08:15] LABS: Lymphocyte 9 % (19-41); Metamyelocyte 1 % (0-1); Monocyte 2 % (0-10); Neutrophil-Segmented 88 % (47-70); Nucleated Red Bld Cells,Manual 1 % (0-5); Total Cells Counted 100 (MANUAL DIFF)
[2021-11-15 08:16] LABS: Platelet Estimate ADEQUATE (ADEQ); Red Cell Morphology NORM C+C NORMAL (NORM C&C)
[2021-11-15 08:17] LABS: Absolute Lymphocyte Count 2.39 X10^3/uL (0.83-4.51); Absolute Neutrophil Count 23.4 X10^3/uL (2.0-7.7)
[2021-11-15] MEDS: Digoxin 250 MCG/ML Ampul 500 MCG IV (08:30)
--- NOTE | 2021-11-15 08:45 | NURSING ---
while giving IV digoxin patient's heart rate went up to 190 and patient stated he felt light headed and I'm too young to . Dr. Rodríguez present in room. placed back in bed and finished giving digoxin per Dr. Rodríguez. Heart rate came down to 140's and patient stated he felt better and was no longer light headed. head og bed raised to 30 degrees and patient stated he felt good. BP 126/67
[2021-11-15 09:22] LABS: Phosphorus 2.5 mg/dL (2.5-4.9)
--- NOTE | 2021-11-15 10:00 | PCM.PN.HOSP ---
Subjective Subjective Follow-up on postop medical management: Patient was seen and examined.? Patient went back to [facility] with RVR. He was given his morning medications earlier. HR was still in 170-190s. Patient was given IV digoxin 500mcg x1. His metoprolol was increased to 50mg BID. He admits to feeling SOB and light headed when his HR was elevated. Objective Data Objective Data Vital Signs: Vital Signs Temp Pulse Resp BP Pulse Ox O2 Del Method O2 Flow Rate 97.0 F L 137 H 17 150/79 H 93 Room Air 2 11/15/21 09:00 11/15/21 09:40 11/15/21 09:15 11/15/21 09:40 11/15/21 09:15 11/15/21 09:15 11/15/21 04:00 FiO2 96 11/12/21 00:00 Oxygen Flow Rate (L/min) 2 Oxygen Delivery Method Room Air Weight: 76.3 kg Body Mass Index (BMI) 28.7 Intake & Output: Intake and Output for Last 24 Hours 11/13/21 11/14/21 11/15/21 23:59 23:59 23:59 Intake Total 842.29 / 962.29 523.25 / 523.25 Output Total 950 / 1350 900 / 900 Balance -107.71 / -387.71 -376.75 / -376.75 Lab / Micro Data Result Diagrams: 11/15/21 07:30 11/15/21 07:30 Labs: Laboratory Results - last 24 hr 11/15/21 07:30: WBC 26.6 H, RBC 3.71 L, Hgb 11.7 L, Hct 34.1 L, MCV 91.9, MCH 31.5, MCHC 34.3, RDW Std Deviation 45.8 H, RDW Coeff of Esther 13.6, Plt Count , MPV 10.6, Neut % (Auto) Not Reportable, Absolute Neuts (auto) 23.4 H, Absolute Lymphs (auto) 2.39, Total Counted 100, Neutrophils % (Manual) 88 H, Lymphocytes % (Manual) 9 L, Monocytes % (Manual) 2, Metamyelocytes % 1, Nucleated RBCs/100 WBC 1, Diff Path Review July, Platelet Estimate ADEQUATE, RBC Morphology NORM C+C 11/15/21 07:30: Sodium 136, Potassium 4.6, Chloride 103, Carbon Dioxide 17.0 L, Anion Gap 16 H, BUN 17, Creatinine 0.73, Estim Creat Clear Calc 58.48, Est GFR (MDRD) Af Amer 135, Est GFR (MDRD) Non-Af 111, BUN/Creatinine Ratio 23.2 H, Glucose 82, Calcium 8.2 L, Magnesium 2.3, Total Bilirubin 0.70, AST 55 H, ALT 25, Alkaline Phosphatase 94, Total Protein 7.0, Albumin 3.0 L, Globulin 4.0, Albumin/Globulin Ratio 0.8 L 11/15/21 07:30: Phosphorus 2.5 Physical Exam Narrative Physical exam: General: Alert, Oriented x3, cooperative, not pale, not jaundiced HEENT: Left sided wound on the neck, clean, dry Oral: Moist Mucosa Neck: Supple Lungs: Diminished to auscultation Cardiovascular: HS I+II, irregular, no murmurs Abdomen: Bowel Sounds Present, Soft, Non Tender Extremities: No edema Skin: No rashes, No breakdown Neurological: Grossly intact Psych/Mental Status: Appropriate Assessment & Plan Assessment/Plan (1) Atrial fibrillation with RVR: PLAN: Plan 1. Postop A. fib with RVR, back in RVR 2D echo showed EF of 55%, mild valvular disease Digoxin IV 500mcg x 1 Increase metoprolol to 50mg BID Continue on oral amiodarone, Eliquis Follow-up on cardiology recommendations 2. POD #4 status post left carotid endarterectomy and patch angioplasty Continue with aspirin, Plavix, Eliquis 3. CAD s/p stent, stable Continue with aspirin, Plavix, metoprolol, lisinopril, isosorbide 4. Hypertension, relatively hypotensive on account of Cardizem drip and amiodarone Continue home medications Continue to monitor vitals 5. Leucocytosis, likely reactive, will monitor 6. DVT Prophylaxis-Eliquis Charges/Coding Visit Charges Inpatient E&M: 80900 Subs Hosp L3
--- NOTE | 2021-11-15 10:11 | PCM.PN.CARD ---
Subjective Subjective The patient is awake and alert. He states he was feeling better this morning until after breakfast. After that he noted he did not feel well. He was noted at the same time to have reverted to atrial fibrillation with RVR. He was returned to his bed. He denies ongoing chest discomfort. He denies any acute shortness of breath/dyspnea. He stated he felt like everything was going dark . He did not lose consciousness. He also notes he was told by the ICU staff that when he was sleeping he had apneic spells and his O2 saturation dropped down to the 60-70% range. He required O2 nasal cannula during the night. Objective Data Vital Signs: Vital Signs Temp Pulse Resp BP Pulse Ox O2 Del Method O2 Flow Rate 97.0 F L 137 H 17 150/79 H 93 Room Air 2 11/15/21 09:00 11/15/21 09:40 11/15/21 09:15 11/15/21 09:40 11/15/21 09:15 11/15/21 09:15 11/15/21 04:00 FiO2 96 11/12/21 00:00 Oxygen Flow Rate (L/min) 2 Oxygen Delivery Method Room Air Weight: 168 lb 3.403 oz Body Mass Index (BMI) 28.7 Intake & Output: Intake and Output for Last 24 Hours 11/13/21 11/14/21 11/15/21 23:59 23:59 23:59 Intake Total 842.29 / 962.29 523.25 / 523.25 Output Total 950 / 1350 900 / 900 Balance -107.71 / -387.71 -376.75 / -376.75 Lab / Micro Data Result Diagrams: 11/15/21 07:30 11/15/21 07:30 Labs: Laboratory Results - last 24 hr 11/15/21 07:30: WBC 26.6 H, RBC 3.71 L, Hgb 11.7 L, Hct 34.1 L, MCV 91.9, MCH 31.5, MCHC 34.3, RDW Std Deviation 45.8 H, RDW Coeff of Esther 13.6, Plt Count , MPV 10.6, Neut % (Auto) Not Reportable, Absolute Neuts (auto) 23.4 H, Absolute Lymphs (auto) 2.39, Total Counted 100, Neutrophils % (Manual) 88 H, Lymphocytes % (Manual) 9 L, Monocytes % (Manual) 2, Metamyelocytes % 1, Nucleated RBCs/100 WBC 1, Diff Path Review July, Platelet Estimate ADEQUATE, RBC Morphology NORM C+C 11/15/21 07:30: Sodium 136, Potassium 4.6, Chloride 103, Carbon Dioxide 17.0 L, Anion Gap 16 H, BUN 17, Creatinine 0.73, Estim Creat Clear Calc 58.48, Est GFR (MDRD) Af Amer 135, Est GFR (MDRD) Non-Af 111, BUN/Creatinine Ratio 23.2 H, Glucose 82, Calcium 8.2 L, Magnesium 2.3, Total Bilirubin 0.70, AST 55 H, ALT 25, Alkaline Phosphatase 94, Total Protein 7.0, Albumin 3.0 L, Globulin 4.0, Albumin/Globulin Ratio 0.8 L 11/15/21 07:30: Phosphorus 2.5 Cardiology Labs/Tests 11/15/21 07:30: WBC 26.6 H, RBC 3.71 L, Hgb 11.7 L, Hct 34.1 L, MCV 91.9, MCH 31.5, MCHC 34.3, Plt Count , MPV 10.6, Neut % (Auto) Not Reportable, Absolute Neuts (auto) 23.4 H, Total Counted 100, Neutrophils % (Manual) 88 H, Lymphocytes % (Manual) 9 L, Monocytes % (Manual) 2, Metamyelocytes % 1 11/15/21 07:30: Sodium 136, Potassium 4.6, Chloride 103, Carbon Dioxide 17.0 L, Anion Gap 16 H, BUN 17, Creatinine 0.73, Est GFR (MDRD) Af Amer 135, Est GFR (MDRD) Non-Af 111, BUN/Creatinine Ratio 23.2 H, Glucose 82, Calcium 8.2 L, Magnesium 2.3, Total Bilirubin 0.70 11/15/21 07:30: Phosphorus 2.5 Rhythm: Atrial fibrillation with RVR Physical Exam Const alert, oriented x3 and no apparent distress Orientation / Consciousness: awake HEENT normocephalic and head/scalp atraumatic Eyes PERRL, EOMs intact bilaterally, conjunctivae normal and no scleral icterus Neck full ROM, supple and no JVD Resp normal respiratory effort and clear to auscultation bilaterally Cardio Rhythm: abnormal rhythm irregularly irregular Heart Sounds: S1 normal and S2 normal GI normal to inspection, nondistended, normoactive bowel sounds Extremity no pedal edema Skin Skin Narrative: Status post left carotid artery endarterectomy incision Psych mental status grossly normal Assessment & Plan Assessment/Plan (1) Atrial fibrillation with RVR: PLAN: The patient has developed atrial fibrillation with rapid ventricular response. The possible etiologies include age, his cardiovascular condition, his recent peripheral vascular surgery, etc. He did return to sinus rhythm and is now returned to atrial fibrillation. At the present time he will continue attempts at rate control therapy with agents such as his beta-blockers as well as additional agents such as digitalis. He will continue his oral amiodarone dosing. He will continue his anticoagulant therapy. The hope is that he will be able to maintain rate control with his medications and anticoagulant therapy and over time be considered for a future synchronized biphasic DC cardioversion. (2) CAD (coronary artery disease): PLAN: He does have a history of CAD. He is undergone recent evaluation for such both noninvasively and invasively. He was to complete his peripheral vascular surgery and his general surgery so that he could proceed with antiplatelet therapy without interruption for a staged PCI procedure. (3) Presence of stent in coronary artery: PLAN: His most recent noninvasive and invasive studies are noted. Again he is continuing medical therapy. The plan was for a future staged PCI procedure once his noncardiac surgeries are complete. (4) Hyperlipidemia: QUALIFIERS: Hyperlipidemia type: unspecified Qualified Code(s): E78.5 - Hyperlipidemia, unspecified PLAN: He should continue risk factor modification and medical therapy. (5) Essential hypertension: PLAN: His blood pressure does need to be monitored during his adjustment of medications and his atrial dysrhythmia. (6) Status post carotid endarterectomy: PLAN: He is reported is healing well from his recent left carotid endarterectomy. He continues to be followed by peripheral vascular surgery. Addt'l Comments Of note, the patient may also need to be evaluated by the [facility] internal medicine staff and pulmonology/critical care staff for consideration for ORACIO. The patient's case was discussed and reviewed the patient and Dr. Rodríguez. This note was generated using a voice recognition system and there may be incorrect words, spelling or punctuation that were not noted when reviewing the office note prior to saving. Procedure Criteria Type of Procedure Procedure Type: Elective Elective Risks - COVID COVID Risk Discussion: The surgeon/proceduralist and patient have discussed in detail the risk of exposure to and/or potential harm posed by the COVID-19 virus with having a surgery/procedure at this time versus the risk of delaying the surgery/procedure. It is not possible to know either the risk of delaying the surgery or procedure or chance of getting an infection with perfect accuracy, but a joint decision was made between the patient and the surgeon/proceduralist to proceed at this time with the scheduled surgery/procedure as indicated on the consent form.
[2021-11-15] MEDS: Digoxin 250 MCG/ML Ampul IV (11:46)
[2021-11-15] MEDS: Docusate Sodium 100 MG Capsule PO (11:57)
--- NOTE | 2021-11-15 12:56 | EKG12_ITS ---
Test Reason : AFIB Blood Pressure : / mmHG Vent. Rate : 088 BPM Atrial Rate : 170 BPM P-R Int : 000 ms QRS Dur : 088 ms QT Int : 380 ms P-R-T Axes : 000 -17 018 degrees QTc Int : 459 ms Atrial fibrillation with premature ventricular or aberrantly conducted complexes Abnormal ECG When compared with ECG of 13-NOV-2021 19:50, MANUAL COMPARISON REQUIRED, DATA IS UNCONFIRMED Confirmed by KIM THOMAS, MAGDIEL ([id number]), editor in chief newspaper MAYELA THOMASON ([id number]) on 11/20/2021 11:23:04 AM Referred By: Blade Dahl Confirmed By:MAGDIEL ALVAREZ MD
--- NOTE | 2021-11-15 15:40 | CASEMGMT ---
RN ROSA NOTE: Pt will need script for OP therapy @ discharge. Script placed on pt's chart, awaiting physician signature. Once signature received, script to be given to pt. Green sheet on chart w/instructions re: same. Gretta DOMÍNGUEZ RN CM
--- NOTE | 2021-11-15 18:04 | PN.SURG_ITS ---
Subjective Subjective Eventful day with further a.fib and high heart rates; during which he feels pretty poorly. Feeling good now, HR controlled. Objective Data Objective Data Vital Signs: Vital Signs Temp Pulse Resp BP Pulse Ox O2 Del Method O2 Flow Rate 97.0 F L 105 H 19 H 138/79 H 94 Room Air 2 11/15/21 15:00 11/15/21 16:00 11/15/21 15:00 11/15/21 15:00 11/15/21 15:00 11/15/21 15:00 11/15/21 04:00 FiO2 96 11/12/21 00:00 Oxygen Flow Rate (L/min) 2 Oxygen Delivery Method Room Air Weight: 168 lb 3.403 oz Body Mass Index (BMI) 28.7 Intake & Output: Intake and Output for Last 24 Hours 11/13/21 11/14/21 11/15/21 23:59 23:59 23:59 Intake Total 842.29 / 962.29 523.25 / 523.25 1220 / 1220 Output Total 950 / 1350 900 / 900 700 / 700 Balance -107.71 / -387.71 -376.75 / -376.75 520 / 520 Lab / Micro Data Result Diagrams: 11/15/21 07:30 11/15/21 07:30 Labs: Laboratory Results - last 24 hr 11/15/21 07:30: WBC 26.6 H, RBC 3.71 L, Hgb 11.7 L, Hct 34.1 L, MCV 91.9, MCH 31.5, MCHC 34.3, RDW Std Deviation 45.8 H, RDW Coeff of Esther 13.6, Plt Count , MPV 10.6, Neut % (Auto) Not Reportable, Absolute Neuts (auto) 23.4 H, Absolute Lymphs (auto) 2.39, Total Counted 100, Neutrophils % (Manual) 88 H, Lymphocytes % (Manual) 9 L, Monocytes % (Manual) 2, Metamyelocytes % 1, Nucleated RBCs/100 WBC 1, Diff Path Review May , Platelet Estimate ADEQUATE, RBC Morphology NORM C+C 11/15/21 07:30: Sodium 136, Potassium 4.6, Chloride 103, Carbon Dioxide 17.0 L, Anion Gap 16 H, BUN 17, Creatinine 0.73, Estim Creat Clear Calc 58.48, Est GFR (MDRD) Af Amer 135, Est GFR (MDRD) Non-Af 111, BUN/Creatinine Ratio 23.2 H, Gluc ose 82, Calcium 8.2 L, Magnesium 2.3, Total Bilirubin 0.70, AST 55 H, ALT 25, Alkaline Phosphatase 94, Total Protein 7.0, Albumin 3.0 L, Globulin 4.0, Albumin/Globulin Ratio 0.8 L 11/15/21 07:30: Phosphorus 2.5 Physical Exam Const alert, oriented x3, no apparent distress and healthy appearing General Appearance: cooperative; Negative for combative or lethargic Orientation / Consciousness: awake Exam Limitations: no limitations HEENT Head and Scalp: normocephalic and atraumatic Eyes EOMs intact bilaterally General Eye: normal appearance of both eyes Neck full ROM General: trachea midline; Negative for tenderness Resp normal respiratory effort, no use of accessory muscles and clear to auscultation bilaterally Effort and Inspection: Negative for labored, stridor or audible wheezes Cardio Rate: tachycardic Rhythm: abnormal rhythm irregularly irregular Back/Spine Cervical Spine: cervical ROM normal Skin no rashes or lesions noted Skin Narrative: Inc C/D/I, no hematoma, no erythema Neuro oriented x3, CN's II-XII intact bilaterally, no focal motor deficits and no sensory deficits noted Psych thought process normal, cooperative, affect normal, speech normal and activity/motor behavior normal Assessment & Plan Assessment/Plan (1) Status post carotid endarterectomy: PLAN: -POD # 4 left cea -cont paroxysmal a.fib, rate control better -hospitalist and cardiology care appreciated -hopefully home next few days of rate control remains better
[2021-11-15] MEDS: Bisacodyl 10 MG Suppository RC (20:43)
[2021-11-15] MEDS: Metoprolol Tartrate 50 MG Tablet PO (21:32)
[2021-11-15] MEDS: 0.9% Saline Lock 10 ML Syringe IV (21:34)
[2021-11-15] MEDS: Atorvastatin Calcium 20 MG Tablet PO (21:34)
[2021-11-16] VITALS (21 sets, daily range): BP systolic 104–156; BP diastolic 45–87; PULSE 61–125; RESP 14–19; TEMP 36.4–36.9; O2SAT 93–99
[2021-11-16 03:30] LABS: Absolute Neutrophil Count 9.8 X10^3/uL (2.0-7.7); Basophil# 0.04 X10^3/uL; Basophil% 0.3 % (0-1); Eosinophil# 0.28 X10^3/uL; Eosinophils% 2.1 % (0-5); Hematocrit 35.4 % (40-54); Hemoglobin 12.2 g/dL (13.0-16.5); Lymphocyte % 14.9 % (19-41); Mean Corp Hgb Conc 34.5 g/dL (32-36); Mean Corpuscular Hgb 31.7 pg (27.0-32.0); Mean Corpuscular Volume 91.9 fL (80-94); Mean Platelet Vol. 10.8 fl (6.2-12.0); Monocyte# 1.16 X10^3/uL; Monocyte% 8.7 % (0-10); NRBC Flagged by Analyzer 0 % (0-5); Neutrophil # 9.84 X10^3/uL (2.7-7.7); Neutrophil % 73.5 % (47-70); Platelet Count 275 K/mm3 (150-450); RBC Distribution Width CV 13.7 % (11.6-14.6); RBC Distribution Width SD 46.1 fl (35.1-43.9); Red Blood Count 3.85 M/mm3 (4.6-6.2); White Blood Count 13.4 K/mm3 (4.4-11.0)
[2021-11-16 03:47] LABS: ALB/GLOB Ratio 0.8 RATIO (0.9-2.4); AST(SGOT) 18 U/L (15-37); Alanine Aminotransfer ALT/SGPT 24 U/L (16-61); Albumin, Serum 2.9 g/dL (3.2-5.0); Alkaline Phosphatase 71 U/L (45-117); Anion Gap 6 (5-15); BUN 20 mg/dL (7-18); BUN/Creat Ratio 27.6 RATIO (10-20); Calcium,Total 8.5 mg/dL (8.5-10.1); Chloride 106 mmol/L (98-107); Creatinine, Serum 0.72 mg/dL (0.70-1.30); EST Glomerular Filtration Rate 113 mL/min (>60); Est Glom Filt Rate - Afr Amer 136 mL/min (>60); Estimated Creatinine Clearance 58.48 ml/min; Globulin 3.6 g/dL (2.2-4.2); Glucose 107 mg/dL (74-106); Potassium 4.3 mmol/L (3.5-5.1); Protein, Total 6.5 g/dL (6.4-8.2); Sodium Level 137 mmol/L (136-145)
[2021-11-16] MEDS: Amiodarone 200 MG Tablet PO ×3 (05:43→20:59)
[2021-11-16] MEDS: Ipratropium 0.5 MG/2.5 ML SOLUTION INHALATION ×3 (07:56→19:21)
[2021-11-16] MEDS: Aspirin 325 MG Tablet PO (08:03)
[2021-11-16] MEDS: APIXABAN 5 MG TABLET PO ×2 (08:04→21:00)
[2021-11-16] MEDS: Allopurinol 300 MG Tablet PO (08:04)
[2021-11-16] MEDS: Metoprolol Tartrate 100 MG Tablet PO ×2 (08:05→21:00)
[2021-11-16] MEDS: Pantoprazole Sodium 40 MG Tablet PO (08:07)
[2021-11-16] MEDS: Clopidogrel Bisulfate 75 MG Tablet PO (08:07)
[2021-11-16] MEDS: 0.9% Saline Lock 10 ML Syringe IV (08:23)
--- NOTE | 2021-11-16 10:36 | PN.HOSP_ITS ---
Subjective Subjective Follow-up on postop medical management: Patient was seen and examined.? His heart rate was elevated this morning. Metoprolol increased to 100 mg p.o. twice daily. Later in the morning, patient converted to normal sinus rhythm. He denied any new complaints was seen. He denied any dizziness or palpitation. Objective Data Objective Data Vital Signs: Vital Signs Temp Pulse Resp BP Pulse Ox O2 Del Method O2 Flow Rate 97.8 F 79 14 125/77 H 98 Room Air 2 11/16/21 08:00 11/16/21 09:30 11/16/21 08:00 11/16/21 08:05 11/16/21 08:00 11/16/21 08:00 11/16/21 03:00 FiO2 96 11/12/21 00:00 Oxygen Flow Rate (L/min) 2 Oxygen Delivery Method Room Air Weight: 74.9 kg Body Mass Index (BMI) 28.7 Intake & Output: Intake and Output for Last 24 Hours 11/14/21 11/15/21 11/16/21 23:59 23:59 23:59 Intake Total 523.25 / 523.25 1220 / 1220 260 / 260 Output Total 900 / 900 875 / 875 Balance -376.75 / -376.75 345 / 345 260 / 260 Lab / Micro Data Result Diagrams: 11/16/21 03:15 11/16/21 03:15 Labs: Laboratory Results - last 24 hr 11/16/21 03:15: WBC 13.4 H, RBC 3.85 L, Hgb 12.2 L, Hct 35.4 L, MCV 91.9, MCH 31.7, MCHC 34.5, RDW Std Deviation 46.1 H, RDW Coeff of Esther 13.7, Plt Count 275, MPV 10.8, Immature Gran % (Auto) 0.500, Neut % (Auto) 73.5 H, Lymph % (Auto) 14.9 L, [place] % (Auto) 8.7, Eos % (Auto) 2.1, Baso % (Auto) 0.3, Absolute Neuts (auto) 9.8 H, Absolute Lymphs (auto) 2.00, Nucleated RBC % 0 11/16/21 03:15: Sodium 137, Potassium 4.3, Chloride 106, Carbon Dioxide 25.0, Anion Gap 6, BUN 20 H, Creatinine 0.72, Estim Creat Clear Calc 58.48, Est GFR (MDRD) Af Amer 136, Est GFR (MDRD) Non-Af 113, BUN/Creatinine Ratio 27.6 H, Glucose 107 H, Calcium 8.5, Total Bilirubin 0.60, AST 18, ALT 24, Alkaline Phosphatase 71, Total Protein 6.5, Albumin 2.9 L, Globulin 3.6, Albumin/Globulin Ratio 0.8 L Physical Exam Narrative Physical exam: General: Alert, Oriented x3, cooperative, not pale, not jaundiced HEENT: Left sided wound on the neck, clean, dry Oral: Moist Mucosa Neck: Supple Lungs: Diminished to auscultation Cardiovascular: HS I+II, irregular, no murmurs Abdomen: Bowel Sounds Present, Soft, Non Tender Extremities: No edema Skin: No rashes, No breakdown Neurological: Grossly intact Psych/Mental Status: Appropriate Assessment & Plan Assessment/Plan (1) Atrial fibrillation with RVR: PLAN: Plan 1. Postop A. fib with RVR, now in NSR 2D echo showed EF of 55%, mild valvular disease Continue on metoprolol and amiodarone as well as Eliquis 2. POD #5 status post left carotid endarterectomy and patch angioplasty Continue with aspirin, Plavix, Eliquis 3. CAD s/p stent, stable Continue with aspirin, Plavix, metoprolol, lisinopril, isosorbide 4. Hypertension, relatively hypotensive on account of Cardizem drip and amiodarone Continue home medications Continue to monitor vitals 5. Leucocytosis, likely reactive, no signs of sepsis, improving 6. DVT Prophylaxis-Eliquis Charges/Coding Visit Charges Inpatient E&M: 56566 Subs Hosp L2
[2021-11-16] MEDS: Ondansetron 4 MG/2 ML Vial IV (13:25)
--- NOTE | 2021-11-16 13:42 | PN.SURG_ITS ---
Subjective Subjective Back in NSR again this AM after increase in Metoprolol dose. Had been feeling well but maybe overdid it ambulating in [place] then eating full lunch; feels rough though better back in bed. No CP/SOB, had nausea but resolved. Objective Data Objective Data Vital Signs: Vital Signs Temp Pulse Resp BP Pulse Ox O2 Del Method O2 Flow Rate 97.8 F 67 19 H 125/77 H 98 Room Air 2 11/16/21 08:00 11/16/21 13:13 11/16/21 13:13 11/16/21 08:05 11/16/21 08:00 11/16/21 08:00 11/16/21 03:00 FiO2 96 11/12/21 00:00 Oxygen Flow Rate (L/min) 2 Oxygen Delivery Method Room Air Weight: 165 lb 2.02 oz Body Mass Index (BMI) 28.7 Intake & Output: Intake and Output for Last 24 Hours 11/14/21 11/15/21 11/16/21 23:59 23:59 23:59 Intake Total 523.25 / 523.25 1220 / 1220 610 / 610 Output Total 900 / 900 875 / 875 200 / 200 Balance -376.75 / -376.75 345 / 345 410 / 410 Lab / Micro Data Result Diagrams: 11/16/21 03:15 11/16/21 03:15 Labs: Laboratory Results - last 24 hr 11/16/21 03:15: WBC 13.4 H, RBC 3.85 L, Hgb 12.2 L, Hct 35.4 L, MCV 91.9, MCH 31.7, MCHC 34.5, RDW Std Deviation 46.1 H, RDW Coeff of Esther 13.7, Plt Count 275, MPV 10.8, Immature Gran % (Auto) 0.500, Neut % (Auto) 73.5 H, Lymph % (Auto) 14.9 L, [place] % (Auto) 8.7, Eos % (Auto) 2.1, Baso % (Auto) 0.3, Absolute Neuts (auto) 9.8 H, Absolute Lymphs (auto) 2.00, Nucleated RBC % 0 11/16/21 03:15: Sodium 137, Potassium 4.3, Chloride 106, Carbon Dioxide 25.0, Anion Gap 6, BUN 20 H, Creatinine 0.72, Estim Creat Clear Calc 58.48, Est GFR (MDRD) Af Amer 136, Est GFR (MDRD) Non-Af 113, BUN/Creatinine Ratio 27.6 H, Glucose 107 H, Calcium 8.5, Total Bilirubin 0.60, AST 18, ALT 24, Alkaline Phosphatase 71, Total Protein 6.5, Albumin 2.9 L, Globulin 3.6, Albumin/Globulin Ratio 0.8 L Physical Exam Const alert, oriented x3, no apparent distress and healthy appearing General Appearance: cooperative; Negative for combative or lethargic Orientation / Consciousness: awake Exam Limitations: no limitations HEENT Head and Scalp: normocephalic and atraumatic Eyes EOMs intact bilaterally General Eye: normal appearance of both eyes Neck full ROM Neck Narrative: Inc C/D/I, no hematoma or erythema General: trachea midline Resp normal respiratory effort and no use of accessory muscles Effort and Inspection: Negative for labored, stridor or audible wheezes Cardio regular rate and regular rhythm Back/Spine Cervical Spine: cervical ROM normal Skin no rashes or lesions noted Wound Narrative: carotid incision satisfactory with no evidence of infection Neuro oriented x3, CN's II-XII intact bilaterally, no focal motor deficits and no sensory deficits noted Psych thought process normal, cooperative, affect normal, speech normal and activity/motor behavior normal Assessment & Plan Assessment/Plan (1) Status post carotid endarterectomy: PLAN: -POD # 5 left CEA with post op a.fib -back in sinus; prior to that was rate controlled well -WBC back down, likely reactive to physiologic stress of past several days -cont to observe, to PCU if bed -if remains stable and feels better then home tomorrow hopefully
--- NOTE | 2021-11-16 14:06 | PN.CARD_ITS ---
Subjective Subjective Denies any cardiac complaints. His metoprolol was increased this morning and patient has converted to sinus rhythm. His heart rate is around 60 bpm. Objective Data Vital Signs: Vital Signs Temp Pulse Resp BP Pulse Ox O2 Del Method O2 Flow Rate 97.8 F 67 19 H 125/77 H 98 Room Air 2 11/16/21 08:00 11/16/21 13:13 11/16/21 13:13 11/16/21 08:05 11/16/21 08:00 11/16/21 08:00 11/16/21 03:00 FiO2 96 11/12/21 00:00 Oxygen Flow Rate (L/min) 2 Oxygen Delivery Method Room Air Weight: 165 lb 2.02 oz Body Mass Index (BMI) 28.7 Intake & Output: Intake and Output for Last 24 Hours 11/14/21 11/15/21 11/16/21 23:59 23:59 23:59 Intake Total 523.25 / 523.25 1220 / 1220 610 / 610 Output Total 900 / 900 875 / 875 200 / 200 Balance -376.75 / -376.75 345 / 345 410 / 410 Lab / Micro Data Result Diagrams: 11/16/21 03:15 11/16/21 03:15 Labs: Laboratory Results - last 24 hr 11/16/21 03:15: WBC 13.4 H, RBC 3.85 L, Hgb 12.2 L, Hct 35.4 L, MCV 91.9, MCH 31.7, MCHC 34.5, RDW Std Deviation 46.1 H, RDW Coeff of Esther 13.7, Plt Count 275, MPV 10.8, Immature Gran % (Auto) 0.500, Neut % (Auto) 73.5 H, Lymph % (Auto) 14.9 L, [place] % (Auto) 8.7, Eos % (Auto) 2.1, Baso % (Auto) 0.3, Absolute Neuts (auto) 9.8 H, Absolute Lymphs (auto) 2.00, Nucleated RBC % 0 11/16/21 03:15: Sodium 137, Potassium 4.3, Chloride 106, Carbon Dioxide 25.0, Anion Gap 6, BUN 20 H, Creatinine 0.72, Estim Creat Clear Calc 58.48, Est GFR (MDRD) Af Amer 136, Est GFR (MDRD) Non-Af 113, BUN/Creatinine Ratio 27.6 H, Glucose 107 H, Calcium 8.5, Total Bilirubin 0.60, AST 18, ALT 24, Alkaline Phosphatase 71, Total Protein 6.5, Albumin 2.9 L, Globulin 3.6, Albumin/Globulin Ratio 0.8 L Cardiology Labs/Tests 11/16/21 03:15: WBC 13.4 H, RBC 3.85 L, Hgb 12.2 L, Hct 35.4 L, MCV 91.9, MCH 31.7, MCHC 34.5, Plt Count 275, MPV 10.8, Immature Gran % (Auto) 0.500, Neut % (Auto) 73.5 H, Lymph % (Auto) 14.9 L, [place] % (Auto) 8.7, Eos % (Auto) 2.1, Baso % (Auto) 0.3, Absolute Neuts (auto) 9.8 H, Nucleated RBC % 0 11/16/21 03:15: Sodium 137, Potassium 4.3, Chloride 106, Carbon Dioxide 25.0, Anion Gap 6, BUN 20 H, Creatinine 0.72, Est GFR (MDRD) Af Amer 136, Est GFR (MDRD) Non-Af 113, BUN/Creatinine Ratio 27.6 H, Glucose 107 H, Calcium 8.5, Total Bilirubin 0.60 Rhythm: EKG: ECHO: Stress Test: Cardiac Cath: PCI: CT Surgery: Holter monitor: EPS: PPM: CXR: Chest CT Scan: Physical Exam Const alert and oriented x3 HEENT normocephalic Resp normal respiratory effort Psych mental status grossly normal Assessment & Plan Assessment/Plan (1) Atrial fibrillation with RVR: PLAN: Currently in sinus rhythm. It will be reasonable to continue the amiodarone and changed the metoprolol to 75 mg p.o. twice daily. Follow-up with Dr. Leroy as an outpatient Charges/Coding Visit Charges Inpatient E&M: 87613 Init Hosp L1
[2021-11-16] MEDS: Atorvastatin Calcium 20 MG Tablet PO (20:59)
[2021-11-16] MEDS: Bisacodyl 10 MG Suppository RC (21:03)
[2021-11-17] VITALS (9 sets, daily range): BP systolic 132–151; BP diastolic 47–61; PULSE 59–66; RESP 16; TEMP 36.4–36.7; O2SAT 94–98
[2021-11-17] MEDS: 0.9% Saline Lock 10 ML Syringe IV (03:25)
[2021-11-17] MEDS: Amiodarone 200 MG Tablet PO ×2 (05:50→13:10)
[2021-11-17] MEDS: Ipratropium 0.5 MG/2.5 ML SOLUTION INHALATION (06:57)
--- NOTE | 2021-11-17 07:00 | NURSING ---
all documentation completed by Sirisha KAMINSKI reviewed by this RN
[2021-11-17] MEDS: Metoprolol Tartrate 100 MG Tablet PO (09:16)
[2021-11-17] MEDS: Clopidogrel Bisulfate 75 MG Tablet PO (09:16)
[2021-11-17] MEDS: Aspirin 325 MG Tablet PO (09:16)
[2021-11-17] MEDS: Pantoprazole Sodium 40 MG Tablet PO (09:16)
[2021-11-17] MEDS: APIXABAN 5 MG TABLET PO (09:16)
[2021-11-17] MEDS: Allopurinol 300 MG Tablet PO (09:16)
[2021-11-17] MEDS: Lisinopril 20 MG Tablet PO (09:17)
--- NOTE | 2021-11-17 09:19 | NURSING ---
Verified patient and morning medications with Yajaira Mccord RN. Scanner not working
--- NOTE | 2021-11-17 11:54 | PCM.PN.HOSP ---
Subjective Subjective Follow-up on postop medical management: Patient was seen and examined.?He was transferred out to PCU. No acute events overnight. He has walked around the unit. He denied any dizziness or palpitation. Objective Data Objective Data Vital Signs: Vital Signs Temp Pulse Resp BP Pulse Ox O2 Del Method O2 Flow Rate 97.6 F L 64 16 137/54 H 96 Room Air 2 11/17/21 09:10 11/17/21 09:16 11/17/21 09:10 11/17/21 09:10 11/17/21 10:24 11/17/21 09:10 11/16/21 03:00 FiO2 96 11/12/21 00:00 Oxygen Flow Rate (L/min) 2 Oxygen Delivery Method Room Air Weight: 75.1 kg Body Mass Index (BMI) 28.7 Intake & Output: Intake and Output for Last 24 Hours 11/15/21 11/16/21 11/17/21 23:59 23:59 23:59 Intake Total 1220 / 1220 830 / 830 Output Total 875 / 875 200 / 200 Balance 345 / 345 630 / 630 Lab / Micro Data Result Diagrams: 11/16/21 03:15 11/16/21 03:15 Physical Exam Narrative Physical exam: General: Alert, Oriented x3, cooperative, not pale, not jaundiced HEENT: Left sided wound on the neck, clean, dry Oral: Moist Mucosa Neck: Supple Lungs: Diminished to auscultation Cardiovascular: HS I+II, irregular, no murmurs Abdomen: Bowel Sounds Present, Soft, Non Tender Extremities: No edema Skin: No rashes, No breakdown Neurological: Grossly intact Psych/Mental Status: Appropriate Assessment & Plan Assessment/Plan (1) Atrial fibrillation with RVR: PLAN: Plan 1. Postop A. fib with RVR, remains in NSR 2D echo showed EF of 55%, mild valvular disease Continue on metoprolol 75mg BID, amiodarone taper as well as Eliquis Outpatient cardiology follow-up within 2 weeks - Dr. Leroy 2. POD #6 status post left carotid endarterectomy and patch angioplasty Continue with aspirin, Plavix, Eliquis Follow-up on vascular surgery recommendations 3. CAD s/p stent, stable Continue with aspirin, Plavix, metoprolol, lisinopril, isosorbide 4. Hypertension, relatively hypotensive on account of Cardizem drip and amiodarone Continue home medications Continue to monitor vitals 5. Leucocytosis, likely reactive, needs to be followed up in the outpatient 6. DVT Prophylaxis-Eliquis Charges/Coding Visit Charges Inpatient E&M: 79536 Subs Hosp L2
--- NOTE | 2021-11-17 12:33 | PCM.PN.SRG ---
Subjective Subjective Doing great. Remains in NSR, feels well after ambulating and eating. +BM Objective Data Objective Data Vital Signs: Vital Signs Temp Pulse Resp BP Pulse Ox O2 Del Method O2 Flow Rate 97.6 F L 64 16 137/54 H 96 Room Air 2 11/17/21 09:10 11/17/21 09:16 11/17/21 09:10 11/17/21 09:10 11/17/21 10:24 11/17/21 09:10 11/16/21 03:00 FiO2 96 11/12/21 00:00 Oxygen Flow Rate (L/min) 2 Oxygen Delivery Method Room Air Weight: 165 lb 9.074 oz Body Mass Index (BMI) 28.7 Intake & Output: Intake and Output for Last 24 Hours 11/15/21 11/16/21 11/17/21 23:59 23:59 23:59 Intake Total 1220 / 1220 830 / 830 360 / 360 Output Total 875 / 875 200 / 200 Balance 345 / 345 630 / 630 360 / 360 Lab / Micro Data Result Diagrams: 11/16/21 03:15 11/16/21 03:15 Assessment & Plan Assessment/Plan (1) Status post carotid endarterectomy: PLAN: -POD # 6 left CEA, post op a.fib -remains in NSR -DC
[2021-11-19 13:40] LABS: Pathologist Review Reviewed
== END 2021-11-17 13:40 | disposition home or self-care (01) | DRG 39 ==
LOC: ACINP 09:29 → ICU 16:13 → PCU 11-16 17:08
PROVIDERS: Anesthesiology; Hospitalist; Internal Medicine; Admitting Provider Surgery Trauma Surgery; PCP Family Medicine; Referring Provider Surgery Trauma Surgery; Visit Provider Surgery Trauma Surgery
PROC: 03CL0ZZ Extirpation of Matter from Left Internal Carotid Artery, Open Approach (ICD-10-PCS; CPT 35301; principal; 2021-11-11 11:10)
DX: I65.23 Occlusion and stenosis of bilateral carotid arteries (principal); E78.5 Hyperlipidemia, unspecified; J44.9 Chronic obstructive pulmonary disease, unspecified; I48.91 Unspecified atrial fibrillation; I25.10 Atherosclerotic heart disease of native coronary artery without angina pectoris; M10.9 Gout, unspecified; I08.1 Rheumatic disorders of both mitral and tricuspid valves; I10 Essential (primary) hypertension; Z79.02 Long term (current) use of antithrombotics/antiplatelets; Z87.891 Personal history of nicotine dependence; Z82.3 Family history of stroke; Z79.82 Long term (current) use of aspirin; Z79.01 Long term (current) use of anticoagulants
CPT/HCPCS: 36415; 71045; 71046; 80048; 80053; 80076; 83735; 84100; 84443; 85025; 85347; 85610; 85730; 88304; 88311; 93005; 93306; 94640; 97110; 97162; 97166; 97530; 97802; J7040; J7120; A4216; J2405; J3490

== ENCOUNTER → 2022-01-17 | Outpatient (CLI) | payer MEDICARE, OTHER, SELFPAY ==
[2022-01-17 11:15] LABS: Hematocrit 36.9 % (40-54); Hemoglobin 12.5 g/dL (13.0-16.5); Mean Corp Hgb Conc 33.9 g/dL (32-36); Mean Corpuscular Hgb 31.6 pg (27.0-32.0); Mean Corpuscular Volume 93.4 fL (80-94); Mean Platelet Vol. 11.2 fl (6.2-12.0); Platelet Count 200 K/mm3 (150-450); RBC Distribution Width CV 14.1 % (11.6-14.6); RBC Distribution Width SD 47.2 fl (35.1-43.9); Red Blood Count 3.95 M/mm3 (4.6-6.2); White Blood Count 8.9 K/mm3 (4.4-11.0)
[2022-01-17 11:29] LABS: BUN 13 mg/dL (7-18); Calcium,Total 8.9 mg/dL (8.5-10.1); Creatinine, Serum 0.87 mg/dL (0.70-1.30); EST Glomerular Filtration Rate 91 mL/min (>60); Est Glom Filt Rate - Afr Amer 111 mL/min (>60); Glucose 96 mg/dL (74-106); Sodium Level 141 mmol/L (136-145)
[2022-01-17 11:30] LABS: Anion Gap 6 (5-15); Chloride 105 mmol/L (98-107); Potassium 4.3 mmol/L (3.5-5.1)
== END | disposition home or self-care (01) ==
LOC: LAB 10:30
PROVIDERS: PCP Family Medicine; Referring Provider Urology; Visit Provider Urology
DX: Z01.812 Encounter for preprocedural laboratory examination (principal)
CPT/HCPCS: 36415; 80048; 85027

== ENCOUNTER → 2022-02-28 | Outpatient (CLI) | payer MEDICARE, OTHER, SELFPAY ==
[2022-02-28 12:39] LABS: Absolute Lymphocyte Count 2.03 X10^3/uL (0.83-4.51); Absolute Neutrophil Count 5.8 X10^3/uL (2.0-7.7); Basophil# 0.05 X10^3/uL; Basophil% 0.6 % (0-1); Eosinophils% 3.3 % (0-5); Hematocrit 39.6 % (40-54); Lymphocyte # 2.03 X10^3/ul (0.83-4.51); Lymphocyte % 22.4 % (19-41); Mean Corp Hgb Conc 32.8 g/dL (32-36); Mean Corpuscular Volume 94.5 fL (80-94); Mean Platelet Vol. 11.5 fl (6.2-12.0); Monocyte# 0.81 X10^3/uL; NRBC Flagged by Analyzer 0 % (0-5); Neutrophil # 5.82 X10^3/uL (2.7-7.7); Neutrophil % 64.3 % (47-70); Platelet Count 225 K/mm3 (150-450); RBC Distribution Width CV 13.9 % (11.6-14.6); RBC Distribution Width SD 48.3 fl (35.1-43.9); Red Blood Count 4.19 M/mm3 (4.6-6.2); White Blood Count 9.1 K/mm3 (4.4-11.0)
[2022-02-28 12:43] LABS: International Normalized Ratio 1.3; Prothrombin Time (Protime)PT. 15.7 SECONDS (11.7-14.9)
[2022-02-28 12:44] LABS: Partial Thromboplast Time 38.5 Seconds (24.1-36.2)
[2022-02-28 13:19] LABS: Anion Gap 2 (5-15); BUN 13 mg/dL (7-18); BUN/Creat Ratio 14.5 RATIO (10-20); Calcium,Total 9.3 mg/dL (8.5-10.1); Chloride 105 mmol/L (98-107); Creatinine, Serum 0.89 mg/dL (0.70-1.30); EST Glomerular Filtration Rate 88 mL/min (>60); Est Glom Filt Rate - Afr Amer 107 mL/min (>60); Glucose 92 mg/dL (74-106); Potassium 4.5 mmol/L (3.5-5.1); Sodium Level 139 mmol/L (136-145)
== END | disposition home or self-care (01) ==
LOC: LAB 11:21
PROVIDERS: PCP Family Medicine; Referring Provider Nurse Practitioner Gerontology; Visit Provider Nurse Practitioner Gerontology
DX: I25.10 Atherosclerotic heart disease of native coronary artery without angina pectoris (principal); I65.23 Occlusion and stenosis of bilateral carotid arteries
CPT/HCPCS: 36415; 80048; 85025; 85610; 85730

== ENCOUNTER 2022-03-21 11:17 | Day surgery (SDC) | payer MEDICARE, OTHER, SELFPAY ==
[2022-03-20 08:04] VITALS: BMI 28.7
--- NOTE | 2022-03-21 12:47 | PCM.DC ---
Discharge Instructions Activity Discharge Activity: Return to Normal Activity Lifting Restrictions: Do not lift or pull anything greater than 10 lbs for 3 days Follow Up Care Test Results: Test results from this visit will be discussed in further detail at your follow-up appointment, if applicable. Discharge Plan Admission Attending Provider: Colin Vance Primary Care Provider: Humphrey Maher Instructions Additional Instructions / Restrictions: We are starting you an an 81 mg Aspirin. You need to be on this for at least 30 days before stopping this. You will continue with your Eliquis and Plavix. You need to be on your Plavix for at least one year before it is stopped for any reason. Discharge Orders/Prescriptions Prescriptions: New aspirin 81 mg Tablet,Chewable 81 mg PO BREAKFAST Qty: 30 0RF Continued albuterol sulfate [ProAir HFA] 90 mcg/actuation HFA aerosol inhaler 2 puff INHALATION Q6H PRN (Reason: Wheezing) cholecalciferol (vitamin D3) 1,000 unit capsule 1,000 unit capsule 3,000 unit PO DAILY Spiriva Respimat 2.5 mcg/actuation mist 2 inh inhalation QAM levothyroxine [Synthroid] 50 mcg tablet 50 mcg PO DAILY amiodarone 200 mg tablet 200 mg PO DAILY amlodipine 5 mg tablet 5 mg PO DAILY Qty: 30 6RF atorvastatin 20 mg tablet 20 mg PO QDAY Eliquis 5 mg Tablet 5 mg PO BID Qty: 60 0RF pantoprazole 40 mg tablet,delayed release (DR/EC) 40 mg PO QDAY clopidogrel [Plavix] 75 mg tablet 75 mg PO QDAY nitroglycerin 0.4 mg tablet, sublingual See Rx Instructions .ROUTE .COMPLEX Qty: 25 3RF Dose Instruction: DISSOLVE 1 TABLET UNDER THE TONGUE EVERY 5 TO 15 MINUTES NEEDED FOR CHEST PAIN Rx Instructions: DISSOLVE 1 TABLET UNDER THE TONGUE EVERY 5 TO 15 MINUTES NEEDED FOR CHEST PAIN allopurinol 300 mg tablet 300 mg PO QDAY Qty: 90 1RF metoprolol tartrate 25 mg tablet 75 mg PO BID 90 Days Qty: 540 3RF lisinopril 20 mg tablet 20 mg PO BID Qty: 60 11RF Referrals / Follow Up: Humphrey Maher, DO [Primary Care Provider] - Fabiola Escamilla [employer]ORAT[employer] ANIMAL CARETAKER, LABORATORY ANIMAL CARETAKER-C [Non-Staff -Ordering Privileges] - (As scheduled ) Disposition Disposition (needs filled in before D/C Order can be placed): Home, Self Care
--- NOTE | 2022-03-21 14:06 | CRPH1.INST_ITS ---
General Education CAD and cardiac anatomy and function:: Patient communicates acknowledgment, Needs reinforcement Explanation of diagnoses and procedures:: Patient communicates acknowledgment, Needs reinforcement Sign/Symptoms of NC:: Patient communicates acknowledgment, Needs reinforcement Antiplatelet therapy: Patient communicates acknowledgment, Needs reinforcement Proper use of NTG-SL: Patient communicates acknowledgment, Needs reinforcement Emergency procedures and activation of EMS: Patient communicates acknowledgment, Needs reinforcement Compliance of all prescribed medications: Patient communicates acknowledgment, Needs reinforcement Dyslipidemia Patient Dyslipidemia Risk Factors Are:: Total Cholesterol, Triglycerides, HDL, LDL Recommendations Include:: Lipid profile not available, Reviewed NCEP/ATP guidelines, Therapeutic Lifestyle Change dietary guidelines Dyslipidemia Response Code:: Patient communicates acknowledgment, Needs reinforcement Overweight/Obesity Patient Overweight/Obesity Risk Factors Are:: BMI Normal [24-29 & > 65 years old] Recommendations Include:: Weight loss of 5-10%, Reduced calorie diet, Exercise 5-7 times/week Overweight/Obesity:: Patient communicates acknowledgment, Needs reinforcement Hypertension Recommendations Include:: Maintain BP <130/85, Decrease/maintain normal body weight Hypertension:: Patient communicates acknowledgment, Needs reinforcement Heart Disease Patient Heart Disease Risk Factors Are:: Previous cardiac event Recommendations Include:: Educated family members of their risk Heart Disease Response Code:: Patient communicates acknowledgment, Needs reinforcement Sedentary Patient Sedentary Risk Factors Are:: Lack of regular exercise Recommendations Include:: Aerobic exercise 5-7 times/week for 20-30 minutes continuously, Benefits of regular exercise, Discussed home walking program, Monitored Outpatient Cardiac Rehab Sedentary Response Code:: Patient communicates acknowledgment, Needs reinforc ement
--- NOTE | 2022-03-21 14:06 | CRPHASE1 ---
Patient Communication Former Patient:: Phase II PHII Cardiac Rehab Discussed with Patient:: Yes Guide to Cardiac Rehab Given to Patient:: Yes Cardiac Rehab Facility Choice List Given to Patient:: Yes Choice Program [facility] CR PHII:: Communication Given to CR Route Specialist:: Colin Vance Refer Phase II Cardiac Rehab:: Yes Sessions:: 36 sessions - 3 days/wk, 12 weeks Cardiac Rehabilitation Info Cardiac Rehabilitation Program Information: Cardiac Rehab The cardiac rehab team at [facility] consists of highly skilled exercise physiologists, nurses, respiratory therapists and physicians working together with you. Our purpose is to help you have a full recovery and achieve the goals you set for yourself. Over the years many of our patients have returned to activities they assumed they would never do again! We can help restore your confidence and motivation to make lifestyle changes that can have a significant impact on your health and quality of life! We can help answer questions and concerns you may have about exercise, lifestyle, medications, diet, stress and anxiety which are common following a hospitalization. WE monitor ECG and vital signs during exercise and discuss your progress with you and report to your physician(s). Cardiac Rehab is proven to help reduce readmissions, improve functional capacity and lower recurrence of problems with your heart. Our Cardiac Rehab program is Certified by the [place] [employer] Pulmonary [employer] (AACVPR) and Accredited by the [place] [employer] through our [facility]. You can contact us at . We invite you to call us with your questions or to get started in our program. If you have other questions or concerns be sure to ask your physician/provider during your follow-up visit. WE look forward to seeing you!
[2022-03-21 15:22] LABS: ACT Activated Clotting Time 245 sec (74-137)
[2022-03-21 15:23] LABS: ACT Activated Clotting Time 161 sec (74-137)
[2022-03-21 16:29] VITALS: BP 122/43; PULSE 56; RESP 16; TEMP 37; O2SAT 93; BMI 25.7
[2022-03-21 16:38] VITALS: PULSE 54
[2022-03-21 18:00] VITALS: BP 128/54; PULSE 51; RESP 16; TEMP 36.6; O2SAT 92
[2022-03-21] MEDS: Ipratropium 0.5 MG/2.5 ML SOLUTION INHALATION (20:06)
[2022-03-21 20:07] VITALS: PULSE 56; RESP 16; O2SAT 91
[2022-03-21 21:38] VITALS: BP 145/63; PULSE 60; RESP 16; TEMP 36.3; O2SAT 93
[2022-03-21] MEDS: 0.9% Normal Saline 1,000 ML 100 ML IV (21:44)
[2022-03-21] MEDS: Atorvastatin Calcium 20 MG Tablet PO (21:44)
[2022-03-21 21:45] VITALS: BP 145/63; PULSE 60
[2022-03-21] MEDS: APIXABAN 5 MG TABLET PO (21:45)
[2022-03-21] MEDS: Metoprolol Tartrate 25 MG Tablet 75 MG PO (21:45)
[2022-03-21] MEDS: Lisinopril 20 MG Tablet PO (21:45)
[2022-03-22] VITALS (7 sets, daily range): BP systolic 145–148; BP diastolic 60–65; PULSE 51–54; RESP 16–18; TEMP 36.4–36.7; O2SAT 91–98
[2022-03-22 05:42] LABS: Hematocrit 37.1 % (40-54); Hemoglobin 12.5 g/dL (13.0-16.5); Mean Corp Hgb Conc 33.7 g/dL (32-36); Mean Corpuscular Hgb 30.9 pg (27.0-32.0); Mean Corpuscular Volume 91.8 fL (80-94); Platelet Count 197 K/mm3 (150-450); RBC Distribution Width CV 14.3 % (11.6-14.6); RBC Distribution Width SD 47.9 fl (35.1-43.9); Red Blood Count 4.04 M/mm3 (4.6-6.2); White Blood Count 9.2 K/mm3 (4.4-11.0)
[2022-03-22 06:01] LABS: AST(SGOT) 13 U/L (15-37); Alanine Aminotransfer ALT/SGPT 35 U/L (16-61); Albumin, Serum 3.2 g/dL (3.2-5.0); Alkaline Phosphatase 73 U/L (45-117); Anion Gap 6 (5-15); BUN 21 mg/dL (7-18); BUN/Creat Ratio 23.5 RATIO (10-20); Calcium,Total 8.6 mg/dL (8.5-10.1); Chloride 106 mmol/L (98-107); Creatinine, Serum 0.89 mg/dL (0.70-1.30); EST Glomerular Filtration Rate 88 mL/min (>60); Est Glom Filt Rate - Afr Amer 107 mL/min (>60); Estimated Creatinine Clearance 72.82 ml/min; Globulin 3.2 g/dL (2.2-4.2); Glucose 103 mg/dL (74-106); Potassium 4.2 mmol/L (3.5-5.1); Protein, Total 6.4 g/dL (6.4-8.2); Sodium Level 140 mmol/L (136-145)
[2022-03-22] MEDS: Levothyroxine 50 MCG Tablet PO (06:15)
[2022-03-22] MEDS: Ipratropium 0.5 MG/2.5 ML SOLUTION INHALATION (07:15)
[2022-03-22] MEDS: Lisinopril 20 MG Tablet PO (09:25)
[2022-03-22] MEDS: APIXABAN 5 MG TABLET PO (09:25)
[2022-03-22] MEDS: Cholecalciferol (VIT D3) 25 MCG TABLET (1,000 UNITS) 75 MCG PO (09:26)
[2022-03-22] MEDS: Amiodarone 200 MG Tablet PO (09:27)
[2022-03-22] MEDS: amLODIPine 5 MG Tablet PO (09:27)
[2022-03-22] MEDS: Pantoprazole Sodium 40 MG Tablet PO (09:27)
[2022-03-22] MEDS: Aspirin 81 MG TAB.CHEW PO (09:27)
[2022-03-22] MEDS: Allopurinol 300 MG Tablet PO (09:28)
[2022-03-22] MEDS: Clopidogrel Bisulfate 75 MG Tablet PO (09:28)
[2022-03-22] MEDS: Metoprolol Tartrate 25 MG Tablet 75 MG PO (11:02)
--- NOTE | 2022-03-22 12:15 | EKG12_ITS ---
Test Reason : AM EKG Blood Pressure : / mmHG Vent. Rate : 052 BPM Atrial Rate : 052 BPM P-R Int : 174 ms QRS Dur : 088 ms QT Int : 516 ms P-R-T Axes : 056 -05 025 degrees QTc Int : 479 ms Sinus bradycardia Otherwise normal ECG When compared with ECG of 21-MAR-2022 14:38, MANUAL COMPARISON REQUIRED, DATA IS UNCONFIRMED Confirmed by KIM THOMAS, MAGDIEL ([id number]), editor at large MAYELA THOMASON ([id number]) on 03/25/2022 8:42:08 AM Referred By: Confirmed By:MAGDIEL ALVAREZ MD
--- NOTE | 2022-03-23 14:57 | CL.I_ITS ---
Patient Name: NIKKO BARAJAS Study Date: 03/21/2022 Performing: Connie Vance MD Ht: 66 inches 167.64 cm : 1945 Wt: 178.2 lbs 80.74 kg Age: 76 Gender: male BSA: 1.9 PROCEDURE(S) PERFORMED [id number])PTCA, SINGLE CORONARY ARTERY IC01-([id number])PTCA, SINGLE CORONARY ARTERY IC10-([id number])FFR, CORONARY OR GRAFT, INITIAL VESSEL IC10-([id number])FFR, CORONARY OR GRAFT, INITIAL VESSEL CLINICAL PROFILE AND CO-MORBIDITIES Indications: Abnormal stress test, Known Stenoses in recent cath, presents for staged PCI Heart Failure: None CONCLUSIONS Successful FFR guided PCI of pLCx. FFR of the LM was 0.83 which is consistent with stenosis that can be treated medically at this time. Successful Cutting balloon angioplasty to pLAD RECOMMENDATIONS DESCRIPTION OF PROCEDURE The patient arrived to the procedure lab. The risks and benefits of the procedure as well as a full description of our services here and current unavailability of surgical backup were fully explained to the patient and/or their significant other prior to the catheterization. The Timeout was completed, verifying the correct patient and procedure. The patient's procedural site was prepped and draped in the usual fashion. Local anesthetic was given subcutaneously to right groin region with Lidocaine 2%. Using a modified Seldinger technique, arterial access was obtained via the right femoral artery, with Micropuncture set, arterial access was obtained via the right femoral artery, a 6Fr sheath was inserted.. XB 3.0 Guide catheter was inserted and engaged into the LCA. The FFR/iFR wire was inserted. Adenosine was then given per protocol. Pressures and FFR/iFR were then recorded. FFR Ratio Baseline: 0.98 FFR Ratio post Adenosine: 0.79 The FFR/iFR wire was inserted. Adenosine was then given per protocol. FFR Ratio post Adenosine: 0.83 Blaine 3.00x10 Balloon catheter was inserted over FFR wire Angiogram performed post balloon dilatation. Blaine 3.50x10 Balloon catheter was inserted. Angiogram performed post balloon dilatation. Emerge 3.50x12 Balloon catheter was inserted. PTCA balloon inflated at 8 atms for 13 secs. PTCA balloon inflated at 10 atms for 29 secs. Angiogram performed post balloon dilatation. Contrast was injected through the sheath and the Right Iliac and Femoral artery were assessed for possible closure device. The arterial sheath was left in to be pulled in the holding area INTERVENTION INFORMATION LESION SITE: Circumflex (Ostial) Lesion Complexity: High/C, chronic total occlusion: No, lesion at bifurcation: No, thrombus present: No, lesion length: 12 mm, culprit lesion: Yes, Previously treated lesion: Yes, Timeframe of previous treatment: Time unknown, In-stent restenosis: Yes Pre Stenosis: 80 % Pre intervention DERICK flow: 3 PROCEDURE: Balloon Angioplasty, FFR, Cutting Balloon Angioplasty FFR of the LM was performed and it was 0.83. Cutting balloon angoplassty was performed to the LAD Post Stenosis: 0 % Post intervention DERICK flow: 3 Lesion Devices: Cordis 6 Fr XB3.0 100cm Guide Catheter HelioVolt ([employer]) Coronary FFR Wire Luigi Sci EMERGE MR 3.50x12 BALLOON LESION SITE: Left Main (Distal) Lesion Complexity: High/C, chronic total occlusion: No, lesion at bifurcation: Yes, thrombus present: No, lesion length: 12 mm, culprit lesion: Yes Pre Stenosis: 75 % Pre intervention DERICK flow: 3 PROCEDURE: FFR Balloon Angioplasty PTCA alone was performed. Patient had a borderline lesion in the distal left main and the stenosis in the proximal LCx extended to the ostium. Post Stenosis: 40 % Post intervention DERICK flow: 3 Lesion Devices: Cordis 6 Fr XB3.0 100cm Guide Catheter HelioVolt (volcano) Coronary FFR Wire LESION SITE: LAD (Proximal) Lesion Devices: Cordis 6 Fr XB3.0 100cm Guide Catheter Luigi Sci Blaine cutting balloon 3.0x10 Luigi Sci Blaine cutting balloon 3.5x10 COMPLICATIONS No Complications PROCEDURE MEDICATIONS Versed 1 mg IV Fentanyl 50 mcg IV Versed 1 mg IV Oxygen: 2 L/min via nasal cannula Adenosine drip for FFR 46 ml IV 03/21/2022 11:07:36 Aspirin (325mg) 1 Tabs PO @ 03/21/2022 11:54:50 Heparin 6000 unit(s) IV 03/21/2022 10:58:37 Heparin 1000 unit(s) IV 03/21/2022 11:26:50 SUMMARY OF HEMODYNAMIC DATA Time AIR REST ECG 09:07:52 AO 175/53 (98) SA 10:53:27 AO 145/49 (81) 11:07:14 Signed By Connie Vance MD On 03/23/2022 14:56:55 Conine Vance MD
== END 2022-03-22 13:08 | disposition home or self-care (01) ==
LOC: CLSP 12:47 → PCU 18:22
PROVIDERS: PCP Family Medicine; Visit Provider Specialist
DX: R94.39 Abnormal result of other cardiovascular function study (principal); J44.9 Chronic obstructive pulmonary disease, unspecified; I48.91 Unspecified atrial fibrillation; I25.10 Atherosclerotic heart disease of native coronary artery without angina pectoris; E78.5 Hyperlipidemia, unspecified; I10 Essential (primary) hypertension; Z95.5 Presence of coronary angioplasty implant and graft; I25.2 Old myocardial infarction; Z87.891 Personal history of nicotine dependence; R07.9 Chest pain, unspecified; R53.83 Other fatigue; Z79.899 Other long term (current) drug therapy
CPT/HCPCS: 36415; 80053; 85027; 85347; 92920; 93005; 93571; 94640; 99152; 99153; C1725; J0153; J7030; J7040; Q9967; A4216; C1769; C1887; C1894

== ENCOUNTER → 2022-04-04 | Outpatient (CLI) | payer MEDICARE, OTHER, SELFPAY ==
--- NOTE | 2022-04-04 12:24 | CR.HP_ITS ---
CR - History & Physical - General Arrival date:: 04/04/22 Arrival time:: 12:30 Date of Referral:: 03/24/22 Date of CR Evaluation:: 04/04/22 Referring Physician: Dr. Tyson Leroy Primary Diagnosis: PTCA - History of Present Cardiac Event Onset Date: Enter Onset Date of cardiac illnesses in Comment field below PTCA or coronary stenting:: Yes - Angioplasty & ballooning of coronary vessel Type of Symptoms:: Working at home, experienced fluttering/palpitations, then went outside and started some yard work then really experienced rapid heart rate. Had to have a carotid stent and hernia surgery first since was not life threatening. Interventions with present event:: Previous coronary stenting (13 total) heart cath angioplasty & ballooning Were there any complications?: no - Sleep Disorder Evaluation Hx of Sleep Apnea: Yes Do you snore loudly (louder than talking or can be heard through closed doors)?: Yes Do you often feel tired/ fatigued/ sleepy during daytime?: Yes Has anyone observed you stop breathing during sleep?: No History of Hypertension (for STOP score): Yes - Had sleep study done, go on April 18 to get a CPAP unit at the [facility]. STOP Results: Positive - Medications Home Medications: Ambulatory Orders Medication Instructions Recorded clopidogrel 75 mg tablet (Plavix) 75 mg PO QDAY CLOTTING 05/22/17 pantoprazole 40 mg tablet,delayed 40 mg PO QDAY GERD 05/22/17 release albuterol sulfate 90 mcg/actuation 2 puff inhalation Q6H PRN Wheezing 07/20/17 aerosol inhaler (ProAir HFA) cholecalciferol (vitamin D3) 25 3,000 unit PO DAILY VITAMIN 04/01/18 mcg (1,000 unit) capsule tiotropium bromide 2.5 2 inh inhalation QAM COPD 01/23/21 mcg/actuation mist for inhalation (Spiriva Respimat) atorvastatin 20 mg tablet 20 mg PO QDAY CHOLESTEROL 11/11/21 apixaban 5 mg tablet (Eliquis) 5 mg PO BID #60 tabs 11/17/21 nitroglycerin 0.4 mg sublingual See Rx Instructions .Route 12/17/21 tablet .COMPLEX #25 tabs allopurinol 300 mg tablet 300 mg PO QDAY GOUT #90 tabs 01/22/22 amiodarone 200 mg tablet 200 mg PO DAILY 02/28/22 levothyroxine 50 mcg tablet 50 mcg PO DAILY 02/28/22 (Synthroid) lisinopril 20 mg tablet 20 mg PO BID This is a dose 03/13/22 increase (from 30 once a day) #60 tabs aspirin 81 mg chewable tablet 81 mg PO BREAKFAST #30 tabs 03/21/22 amlodipine 5 mg tablet 5 mg PO DAILY #30 tabs 03/24/22 metoprolol tartrate 25 mg tablet 50 mg PO BID 90 days #360 tabs 03/27/22 - Allergies Allergies/Adverse Reactions: Allergies bee venom protein (honey bee) Allergy (Verified 03/27/22 10:21) Anaphylaxis Advanced Directives - Advanced Directives Power of Class A Lineman: Yes Living Will: Yes Advance Directives Information Provided: No Advance Directives on File: No DNR Order?:: No - MOLST See MOLST form: No Past Medical History - Covid-19 Screening Fever: No Unexplained muscle aches: No Current respiratory symptoms: No - COPD Upper respiratory infections symptoms: No - History of COPD Gastro-intestinal symptoms: Yes - History of GERD, gastric reflux [id number]-[id number] symptoms: No Has High Risk Exposures ID'd by Health dept/Inf Control team: No 65 years or older:: Yes Lives in Assisted Living facility:: No Has a chronic lung disease or moderate to severe asthma:: Yes Has a serious heart condition:: Yes Immunocompromised:: No Severely obese (Body Mass Index of 40 or higher):: No Diabetic:: No Has chronic kidney disease undergoing dialysis:: No Has liver disease:: No - Past Medical Illness Medical History: Past Medical History (Last Reviewed 03/27/22 @ 10:23 by Maeve Poole) Ambulates with cane Z99.89 Arthritis M19.90 Atherosclerotic heart disease of [place] coronary artery without angina pectoris I25.10 PTCA/PETER to LAD and prox to mid LCX 04/11/10; PTCA/PETER of the patent pre existing stent in the prox RCA 01/22/2011;Successful FFR guided PCI of pLCx. FFR of the LM was 0.83 which is consistent with stenosis that can be treated medically at this time. Successful Cutting balloon angioplasty to pLAD CAD (coronary artery disease) I25.10 Cancer C80.1 skin CA removed from [facility] Cardiology follow-up encounter Z09 09/04/21 most recent visit with [facility] Carotid stenosis, bilateral I65.23 Chest pain R07.9 Has had Chest Pain but not enough for me to take my NTG tab COPD (chronic obstructive pulmonary disease) J44.9 Easy bruising R23.3 Essential hypertension I10 Excessive bleeding R58 Former smoker Z87.891 Gastric reflux K21.9 per pt, controlled on meds Gout M10.9 History of heart attack I25.2 2011 History of hiatal hernia Z87.19 History of irregular heartbeat Z86.79 History of stress test Z92.89 08/22/2021 [facility] Hyperlipidemia E78.5 Hypertension I10 Leg cramps R25.2 Old myocardial infarction I25.2 Shortness of breath on exertion R06.02 dyspnea with 2 flights of stairs Wears dentures Z97.2 Wears glasses Z97.3 Wears hearing aid Z97.4 - Past Surgical History Surgical History: Past Surgical History (Last Updated 03/27/22 @ 10:23 by Maeve Poole) H/O local excision of skin lesion Z98.890 skin cancer removed by Lt ear History of brain surgery Z98.890 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 FFR of the LM was 0.83 which is consistent with stenosis that can be treated medically at this time. Successful Cutting balloon angioplasty to pLAD Presence of stent in coronary artery Onset Date: ~01/22/11 Z95.5 PTCA/PETER to LAD and prox to mid LCX 04/11/10; PTCA/PETER of the patent pre existing stent in the prox RCA 01/22/2011 S/P hernia repair Z98.890, Z87.19 Status post carotid endarterectomy Z98.890 - Family History Summary Family History: Family History (Last Reviewed 03/27/22 @ 10:24 by Maeve Poole) Father CVA (cerebral vascular accident) Mother CAD (coronary artery disease) Hx of CABG CHF (congestive heart failure) S/P MVR (mitral valve replacement) Brother COPD (chronic obstructive pulmonary disease) Diabetes Cancer lung Grandfather Colon cancer Social History - Smoking History Smoking Status: Former smoker Hx Tobacco Use: No Hx Smoking Exposure: No - Alcohol Use Alcohol Usage: No - Substance Abuse Hx Substance Use: No - Occupation Occupation (List type of work in comments):: Retired - Hobbies, Recreation, Social Activities Hobbies: Other - small engine repair, hunting, yard work...keeps busy as much as I can. Recreational Activities: I am able to engage in most, but not all activities Social Environment - Status Marital Status: - Current Living Arrangements Living Environment:: Spouse - Children How many children do you have?: 5 - 1 biological, 4 step children Do any of your children live nearby?: Yes - Safety Do you feel safe in your surroundings?: Yes - Assistance Do you need any assistance at home?: none Review of Systems - Review of Systems Hints: Right click = Denies ([place]). Left click = Reports ([place]) Review of Present Symptoms: Reports: Shortness of Breath with Exertion - sometimes, Fatigue, Heart Arrhythmia/Irregularities - paroxysmal atrial fibrillation, irregular heart beat., Appetite - Normal, Sleep - Normal. Denies: Shortness of Breath at Rest, Angina, Dizziness/Lightheadedness, Appetite - Special Diet, Sexual Changes - Pain Is Patient Pain Free?: Yes Pain Location: none Pain Level: 0/10 Risk Factor Assessment - Chief Complaint Chief Complaint: Chest pain (angina) was seen and scheduled for heart cath due to previous coronary stenting. One vessel was ballooned and had angioplasty procedure done and does have one other coronary vessel 100% occluded but is not life threatening. Patient was told eventually he may have to have open heart surgery done. - Vital Signs Temperature: 97.6 F Respiratory Rate: 14 Pulse Ox: 97 Blood Pressure: 140/70 Nailbeds:: pink - Pulse Pulse Rate: 49 Pulse Rhythm: Regular - Hypertension Blood Pressure Sitting - Left Arm: 140/70 - Blood Cholesterol/Lipids Total Cholesterol (mg/dL) Goal = less than 200 mg/dL: 124 - 03/22/2022 HDL Cholesterol (mg/dL) Goal = less than 40 mg/dL: 38 LDL Cholesterol (mg/dL) Goal = less than 70 mg/dL: 61 Triglycerides (mg/dL) Goal = less than 150 mg/dL: 127 - Obesity Height: 5 ft 9 in Weight:: 179 lb Weight in Pounds: 179.0 lbs Weight Source: Estimated by Patient Body Mass Index (BMI): 26.4 Nutritional Referral for Obesity: No - Risk Stratification Risk Guidelines: Lowest Risk: Risk Factor for Smoking, Risk Factor for Dyslipidemia, Risk Factor for Diabetes, Risk Factor for Obesity, Risk Factor for Sedentary Lifestyle, Risk Factor for Depression, Highest Risk: Risk Factor for Hypertension - 140/70 - Family History Family History: Family History (Last Reviewed 03/27/22 @ 10:24 by Maeve Poole) Father CVA (cerebral vascular accident) Mother CAD (coronary artery disease) Hx of CABG CHF (congestive heart failure) S/P MVR (mitral valve replacement) Brother COPD (chronic obstructive pulmonary disease) Diabetes Cancer Grandfather Colon cancer Motivation - Motivation to Participate On a scale of 1 to 10, how prepared are you to commit to attending program?: 10 What do you see as barriers to successfully being able to complete the program?: none What do you see as the benefits of succesfully completing the program? In other words, what do you hope to get out of participating in the program?: healthier, more energy. Last time really benefited from the program. Are there issues you are dealing with that will interfere with completing the program?: no Do you have a spouse or signficant other, family or friends who will help support you to complete the program?: Yes
--- NOTE | 2022-04-04 12:25 | PCM.CR.ITP ---
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 Personal Learning Style:: Audio/Visual, Written Barriers to Learning: Cognitive/Learning Impairment, Cultural/Spiritual, Decreased Motivation, Emotional/Anxiety, Hearing Impairment, Language, Low Literacy, Mental Status, No Barriers, Physical Condition/Sensory Deficit, Vision Impairment Stage of change r/t lifestyle modifications:: Action Gave educational material for:: Treating Heart Disease, Emotions & Heart Disease, Stress Management & Relaxation, Sleep Disorders & Heart Disease, How The Heart Works, What it means to have Heart Disease, How Coronary Artery Disease is Diagnosed, Heart Procedures, What Heart Medications Do, Risk Factors & Modifications, Living an Active Life, Nutrition - Education/Goals Individual Counseling: Initial Assessment: Abnormal Cholesterol Levels, High Blood Pressure Cardiac Rehabilitation Goals: 1. Maintain the individual as the primary focus of care. 2. To improve the patient's quality of life. 3. Identification of cardiac risk factors and provide cardiac risk factor management. 4. Enhance the psychosocial status of the patient. 5. Reconditioning enough to allow the patient to resume customary activities. 6. Control symptoms of cardiac disease Personal Goals: Initial Assessment: Improve energy level, Get back to work, or to resume activities faster, Improve knowledge of cardiac disease, Improve muscle strength and endurance, Control risk factors (learn risk factor modification) Scale for measuring improvement of personal goals: Enter appropriate number in Comments. 2 = Unchanged. 3 = Slightly Better. 4 = Moderate Improvement. 5 = Met my Goal - Diagnosis & Disease Process Outcomes/Goals: Pt IDs own risk factors & lifestyle modifications by Session 10, Verbalizes symptoms of angina & response by session 3., Pt independently manages Plan/Interventions: Assist Pt to ID & engage in lifestyle modification to reduce CVD risk, Instruct on individual risk factors, Review symptoms of angina & emergency actions, Review secondary diagnosis & identify educational needs. - Safety Referral to Physical Therapy: No Referral to [facility] Case Management: No Fall Risk Assessed:: Yes Assistive Devices:: Cane - occasionally Exercise - Initial Assessment - Visit Date of Eval: 04/04/22 Session #:: 0 - pre-cardiac rehab evaluation Mets: Pre-: >7 METS for 30 minutes by discharge - Physician Prescribed Exercise Modalities: Treadmill, Rower, Airdyne Frequency: 3x/week for 12 weeks [36 sessions] Intensity: 60-80% of age predicted maximum heart rate reserve Current METSs:: 4.0 Target Heart Rate:: 95-109 Resting Blood Pressure: 140/70 EKG Type: Sinus Bradycardia Current Physical Activity or Exercising minutes: active > 3 hours daily - Outcomes & Goals Goals:: Verbalizes understanding of THR, RPE & goal METS by session 6, Documents in home exercise log/reports 30 min aerobic 5 day/wk by DC, Demonstrates accurate pulse taking by DC - Intervention & Plan Exercise Program Goals: Instruct on personal THR & RPE, Instruct on MET level & personal MET goal, Show patient to take own pulse /validate performance until accurate, Instruct on home exercise - Physical Activity Home Exercise Physical Activity - Home Exercise: Safe Exercise, Warm-up, Self-monitoring, Cool-Down, Home Exercise > 30 min Daily, Sitting Time <3 hours/daily - Outcomes & Goals Outcomes/Goals: Demonstrates correct Warm-up/exercise Cool-Down (S3) if = 2.5 METs, Verbalizes symptoms of exercise intolerance by Session 3 (S3), Demonstrate safe equipment use (S3) & follows exercise prescrition (6) - Intervention & Plan Plan/Intervention: Instruct warm-up & cool-down if exercising at > 2 METs, Instruct on symptoms of exercise intolerance & actions to take, Instruct & monitor on saf, Assess intial functional capacity & safety risk Nutrition - Initial Assessment - Program Goals Nutrition Program Goals: LDL <100 optimal. 100 - 129 Near optimal. 130 - 159 Borderline High. 160 - 189 High. Total Cholesterol <200 desirable. 200 - 239 Borderline High. >/= 240 High. HDL < 40 Low >/=60 High. Triglycerides <150 desirable. <199 optimal. VlDL 5 - 40. HgbA1C <7%. BMI <25 Patient has diagnosis of Hyperlipidemia (ICD E78)?: Yes - Visit Date of Assessment:: 04/04/22 Session #:: 0 - pre-cardiac rehab evaluation - Cholesterol/Lipids (Other Core Measures) Triglycerides (mg/dL): 127 - 03/22/2022 Total Cholesterol (mg/dL): 124 LDL Cholesterol (mg/dL): 61 HDL Cholesterol (mg/dL): 38 Determine presence & major risk factors that modify LDL goal: Hypertension or hypertensive medication, Low HDL cholesterol <40 mg/dL*, Family history of premature CHD in Male < 55 years: female <65 yearsFa, Age men > 45 years; women >/= 55 years Outcomes/Goals: Pt IDs own risk factors & lifestyle modifications by Session 10, Verbalizes symptoms of angina & response by session 3., Pt independently manages Intervention/Plan: Instruct on personal lipid levels & lipid goals/NCEP guidelines, Instruct on cholesterol Referral to dietitian:: Yes - Medical Nutrition Therapy - Diabetes (Other Core Measures) Diabetes Type: Not Applicable - Weight Mgt (Other Care) Not Applicable: Yes Height: 5 ft 9 in Weight:: 179 lb BMI: 26.4 Diagnosis Overweight/Obesity BMI> 30% ICD-10 E66: No Diagnosis High BMI/Morbid Obesity BMI> 35% ICD-10 Z68: No Outcomes/Goals: Pt sets, maintains & shows weight loss goal & trend during rehab Intervention/Plan: Instruct on ideal BMI & set weight loss goal w/patient - Healthy Eating Habits Will attend diet classes:: Yes Outcomes/Goals:: Consume diet rich in vegs,fruits,whole grain/high fiber,fish,lean meat, Limit sat/trans fats,cholesterol & added salts & sugars Intervention/Plan:: Assess current eating habits - Education Gave educational materials for:: Healthy eating Nutrition - 30-Day Assessment Nutrition - 60-Day Assessment Nutrition - 90-Day Assessment Nutrition - Final Assessment Core - Initial Assessment - Visit Date of Eval: 04/04/22 Session #:: 0 - Pre-cardiac Rehab evaluation - Medication Compliance Preventative Medication(s):: Aspirin, Clopidogrel/P2Y12 inhibit, Statin/lipid, Beta kaylene H/O mental health issues: depression, anxiety, or addiction?: No Doesn?t believe in the benefits of treatment?: No Believes medications are unnecessary or harmful?: No Has a concern about medication side effects?: No Expresses concern over the cost of medications?: No Outcomes/Goals: Verbalizes medications,desired effect & common side effects @ DC, Pt self-reports following medication regimen, Keeps card in wallet w/medications listed by DC Interventions/plans: Instruct on medication effects & side effects, Review medication list w/patient every two weeks, Instruct importance of taking meds as ordered & assist problem solving - Tobacco Use Tobacco Use: Non-smoker - Hypertension Hypertension Diagnosis:: Hypertension ICD-10 I10 Resting Blood Pressure:: 140/70 [place] [employer] Hypertension Guidelines: [place] [employer] Hypertension Guidelines. Normal BP Less than 120/80. Elevated BP 120/80. Hypertension Stage 1: BP 130-139/80-89. Hypertesnion Stage 2: BP 140 or higher/90 or higher. Hypertension Crisis: BP higher than 180/120 Outcomes/Goals: Able to verbalize/achieve optimal blood pressure <130/80, Incorporates diet changes & exercise for blood pressure control by DC Interventions/plan: Instruct on optimal blood pressure, hypertension & medications, Instruct on effects of sodium, alcohol, stress, exercise &hypertension - Tobacco Cessation Referral Smoking Cessation Referral:: No Individual Education/Counseling:: No Education Schedule Given:: Yes Core - 30-Day Assessment Core - 60-Day Assessment Core - 90 Day Assessment Core - Final Assessment Psychosocial - Initial Assess - VIsit Date of Eval: 04/04/22 Session #:: 0 - pre-cardiac rehab evaluation Not Applicable: Yes History of previous Mental disease:: No - Psychosocial Test Tool Used:: ams AG QOL Cardiac, PHQ-9 Questionnaire phq-9 Severity: Severity. 1-4 Minimal Depression. 5-9 Mild Depression. 10-14 Moderate Depression. 15-19 Moderately Sever Depression. 20-27 Severe Depression. Rule: - Referral to Behavioral Health PS - Interventions: Yes Attend Stress Management Classes, No Referral to Behavioral Health if PHQ-9 score >9:, No Referral to [facility], No Referral to Physician if PHQ-9 if score is 5-9: - Outcomes/Goals: See list Psychosocial Outcomes/Goals:: ID's personal stressors & 2 strategies to manage stress by discharge - Intervention/Plan: See List Interventions/Plan:: Assess stressors,coping strategies & signs of derpression on admission, Instruct/assist pt to develop coping & personal stress Mgt strategies, Instruct patient to recognize signs & symptoms of depression, Instruct patient to recog Psychosocial - 30-Day Assess Psychosocial - 60-Day Assess Psychosocial - 90-Day Assess Psychosocial - Final Assessmen Patient Health Questionnaire Initial Assessment 1. Little interest or pleasure in doing things: Not at all 2. Feeling down, depressed, or hopeless: Not at all 3. Trouble falling or staying asleep, or sleeping too much: Nearly every day 4. Feeling tired or having little energy: Nearly every day 5. Poor appetite or overeating: Not at all 6. Feeling bad about yourself -- or that you are a failure or have let yourself or your family down: Not at all 7. Trouble concentrating on things, such as reading the newspaper or watching television: Not at all 8. Moving or speaking so slowly that other people could have noticed. Or the opposite - being so fidgety or restless that you have been moving around a lot more than usual: Not at all 9. Thoughts that you would be better off , or of hurting yourself in some way: Not at all Total Score: 6 JACQUELINE-Q SV Test - Statements CAD is a disease of the arteries in the heart: False Examples of risk factors for heart disease: True Angina is chest pain or discomfort: True The benefits of resistance training include: False Eating more meat and dairy products: False Anti-platelet medications such as aspirin are important: True The only effective way to manage stress: False An exercise warm-up slowly increases heart rate: True Prepared, processed foods usually have high sodium: True Depression is common after a heart attack: True The statin medications lower cholesterol: True To control blood pressure, lower the amount of sodium: True If someone gets chest discomfort during walking: False Transfats are partially hydrogenated vegetable oils: True Sleep apnea that is not treated increases the risk: False To control cholesterol, one should become a vegetarian: False Someone knows if he/she is exercising at the right level: True Diabetes cannot be prevented with exercise & health eating: False Stress is a large risk for heart attack: True A diet that can help lower blood pressure is rich in: True - Total Score Total Correct Responses: 19 Self-Efficacy Initial Assessment We would like to know how confident you are in doing certain activities. Please select your confidence level for:: Select your confidence level for the following using the scale 1-10 where 1 is not at all confident and 10 is totally confident. Your score is the average of all 6 responses. Fatigue: How confident are you that you can keep the fatigue caused by your disease from interfering with the things you want to do? Select Number: 8 Physical Discomfort or Pain: How confident are you that you can keep the physical discomfort or pain of your disease from interfering with the things you want to do? Select Number: 7 Emotional Distress: How confident are you that you can keep the emotional distress caused by your disease from interfering with the things you want to do? Select Number: 7 Other Symptoms or Health Problems: How confident are you that you can keep other symptoms or health problems from interfering with the things you want to do? Select Number: 7 Different Tasks and Activities: How confident are you that you can do the different tasks and activities needed to manage your health condition so as to reduce your need to see a doctor? Select Number: 7 Medication: How confident are you that you can do things other than just taking medication to reduce how much your illness affects your everyday life? Select Number: 8 Total Score:: 7 Nutrition Survey - Nutrition Survey Initial Have you lost >10 lbs over the past 2 months without trying?: No Are you following a special diet at home for diabetes, low fat, or low salt?: No Are you interested in meeting with a dietitian for help understanding your diet?: Yes Do you eat less than 3 meals a day?: No Do you eat fatty meats (cunningham, sausage, ribs, etc), fried foods, desserts, large amounts of salad dressings, margarine, butter, or cheese most days?: Yes Do you have food allergies? [Enter types in comment field]: No Do you eat in restaurants more than 3 times a week?: No Do you season food with salt, seasoning salt, or garlic salt?: No Do you used canned, boxed, frozen meals, or soups, seasoning packets?: No Total Score:: 2
[2022-04-04 12:52] VITALS: BP 140/70; PULSE 49; RESP 14; TEMP 36.4; O2SAT 97; BMI 26.4
[2022-04-04 13:25] VITALS: BP 140/70; BMI 26.4
== END | disposition home or self-care (01) ==
LOC: CR 12:11
PROVIDERS: PCP Family Medicine; Visit Provider Internal Medicine Cardiovascular Disease
DX: I10 Essential (primary) hypertension (principal); J44.9 Chronic obstructive pulmonary disease, unspecified; I20.9 Angina pectoris, unspecified; I25.2 Old myocardial infarction; K21.9 Gastro-esophageal reflux disease without esophagitis; E78.5 Hyperlipidemia, unspecified; Z95.5 Presence of coronary angioplasty implant and graft; R06.83 Snoring; Z86.79 Personal history of other diseases of the circulatory system; R06.02 Shortness of breath; R53.83 Other fatigue; I49.9 Cardiac arrhythmia, unspecified

== ENCOUNTER 2022-04-14 11:30 | Outpatient (RCR) | payer MEDICARE, OTHER, SELFPAY ==
[2022-04-04 13:25] VITALS: BMI 26.4
== END 2022-04-15 23:59 ==
LOC: CR 11:30
PROVIDERS: PCP Family Medicine; Visit Provider Internal Medicine Cardiovascular Disease
DX: I25.10 Atherosclerotic heart disease of native coronary artery without angina pectoris (principal); Z98.61 Coronary angioplasty status
CPT/HCPCS: 93798

== ENCOUNTER → 2022-05-05 | Outpatient (CLI) | payer MEDICARE, OTHER, SELFPAY ==
[2022-04-04 13:25] VITALS: BMI 26.4
== END | disposition home or self-care (01) ==
LOC: PSN 12:05
PROVIDERS: PCP Family Medicine; Referring Provider Nurse Practitioner Gerontology; Visit Provider Nurse Practitioner Gerontology
DX: R00.1 Bradycardia, unspecified (principal); I48.91 Unspecified atrial fibrillation
CPT/HCPCS: 93225; 93226

== ENCOUNTER → 2022-05-08 | Outpatient (CLI) | payer OTHER, SELFPAY ==
[2022-04-04 13:25] VITALS: BMI 26.4
[2022-05-06 12:02] VITALS: BMI 26.3
--- NOTE | 2022-05-08 10:36 | ECHOD_ITS ---
Reason For Study: ASHD Procedure This was a 2D Doppler, Color Flow transthoracic echocardiogram. Exam performed in department. Left Ventricle Normal LV size. Mild concentric left ventricular hypertrophy. The left ventricular ejection fraction is 65 %. Stage 3 diastolic dysfunction. Right Ventricle Normal right ventricle. Atria The left atrium is severely enlarged. The right atrium is mildly enlarged. Mitral Valve Mild-Moderate (1-2+) mitral valve insufficiency. Tricuspid Valve Mild to moderate (1-2+) tricuspid valve insufficiency. Right ventricular systolic pressure estimated to be 42 mmHg. Mild pulmonary hypertension. Aortic Valve Moderate diffuse aortic valve calcification. Mild aortic stenosis. Pulmonic Valve Mild (1+) eccentric pulmonic valve insufficiency. Great Vessels Normal sized aortic root. Pericardium/Pleural No pericardial effusion. MMode/2D Measurements & Calculations LVIDd: 5.5 cm IVSd: 1.1 cm LVOT diam: 2.2 cm LVIDs: 3.2 cm LVPWd: 1.1 cm LVOT area: 3.9 cm2 FS: 42.0 % Ao root diam: 3.0 cm LAV(MOD-sp4): 99.4 ml LVAd ap4: 33.2 cm2 LVLd ap4: 8.3 cm EDV(MOD-sp4): 109.2 ml EDV(sp4-el): 112.6 ml LVAs ap4: 19.4 cm2 LVLs ap4: 7.2 cm ESV(MOD-sp4): 46.0 ml ESV(sp4-el): 44.4 ml EF(MOD-sp4): 57.9 % EF(sp4-el): 60.6 % SV(MOD-sp4): 63.2 ml SV(sp4-el): 68.2 ml LA A4 area: 28.3 cm2 LA dimension(2D): 5.8 cm RA A4 area: 19.5 cm2 Time Measurements MV dec time: 0.19 sec Doppler Measurements & Calculations MV E max xavier: 78.5 cm/sec Lat Peak E' Xavier: 12.4 cm/sec Med Peak E' Xavier: 6.6 cm/sec MV A max xavier: 34.7 cm/sec E/E' lat: 6.3 E/E' med: 12.0 MV E/A: 2.3 MV V2 max: 89.0 cm/sec Ao V2 max: 246.8 cm/sec MV max P.2 mmHg MV dec slope: 430.0 cm/sec2 Ao max P.4 mmHg MV V2 mean: 43.5 cm/sec Ao V2 mean: 181.5 cm/sec MV mean P.90 mmHg Ao mean P.6 mmHg MV V2 VTI: 32.4 cm Ao V2 VTI: 65.4 cm AV (velocity ratio): 0.42 MVA(VTI): 3.3 cm2 JEROMY(I,D): 1.6 cm2 JEROMY(V,D): 1.4 cm2 LV V1 max: 91.8 cm/sec MR max xavier: 468.5 cm/sec SV(LVOT): 106.5 ml LV V1 max P.4 mmHg MR max P.8 mmHg LV V1 mean P.2 mmHg MR mean xavier: 373.3 cm/sec LV V1 mean: 70.1 cm/sec MR mean P.3 mmHg LV V1 VTI: 27.5 cm MR VTI: 186.7 cm PA V2 max: 113.6 cm/sec PI dec slope: 347.8 cm/sec2 TR max xavier: 305.7 cm/sec PA V2 mean: 72.4 cm/sec TR max P.4 mmHg ECHO/Echo Complete Interpretation Summary Mild concentric left ventricular hypertrophy. The left ventricular ejection fraction is 65 %. Stage 3 diastolic dysfunction. The left atrium is severely enlarged. Mild-Moderate (1-2+) mitral valve insufficiency. Mild to moderate (1-2+) tricuspid valve insufficiency. Mild pulmonary hypertension. Mild aortic stenosis. Mild (1+) eccentric pulmonic valve insufficiency. Ordering Physician: HERIBERTO YUN Referring Physician: Neo Maher M.D. Performed By: Oralia Hedrick RCS
--- NOTE | 2022-05-08 10:37 | EKG12_ITS ---
Test Reason : EVALUATION Blood Pressure : / mmHG Vent. Rate : 053 BPM Atrial Rate : 053 BPM P-R Int : 158 ms QRS Dur : 086 ms QT Int : 476 ms P-R-T Axes : 035 -09 037 degrees QTc Int : 446 ms Sinus bradycardia Otherwise normal ECG Confirmed by ARIANNA THOMAS, VAN ([id number]), story editor MAYELA THOMASON ([id number]) on 05/09/2022 12:44:46 PM Referred By: Fabiola Escamilla Confirmed By:VAN KELLER MD
== END | disposition home or self-care (01) ==
PROVIDERS: PCP Family Medicine
DX: I48.91 Unspecified atrial fibrillation (principal); I27.20 Pulmonary hypertension, unspecified; I25.9 Chronic ischemic heart disease, unspecified; I25.10 Atherosclerotic heart disease of native coronary artery without angina pectoris; I51.7 Cardiomegaly; I34.0 Nonrheumatic mitral (valve) insufficiency
CPT/HCPCS: 93005; 93306

== ENCOUNTER 2022-05-12 11:30 | Outpatient (RCR) | payer MEDICARE, OTHER, SELFPAY ==
[2022-04-04 13:25] VITALS: BMI 26.4
--- NOTE | 2022-05-06 11:55 | PCM.CR.ITP ---
Diagnosis Exercise - 30-day Assessment - Visit Date of Eval: 05/06/22 Session #:: 11 - Physician Prescribed Exercise Modalities: Treadmill, Airdyne, NuStep Frequency: 3x/week for 12 weeks [36 sessions] Intensity: 60-80% of age predicted maximum heart rate reserve Duration: 30 - 45 minutes Current METSs:: 5.0 Target Heart Rate:: 95-109 Current RPE:: 11 Maximum Excercise HR:: 87 Resting Blood Pressure: 136/52 Maximum Exercise Blood Pressure: 140/50 EKG Type: Sinus faraz to sinus rhythm with rare PVCs PACs Current Physical Activity or Exercising minutes: 36:24 - Outcomes & Goals Goals:: Verbalizes understanding of THR, RPE & goal METS by session 6, Documents in home exercise log/reports 30 min aerobic 5 day/wk by DC, Demonstrates accurate pulse taking by DC - Intervention & Plan Exercise Program Goals: Instruct on personal THR & RPE, Instruct on MET level & personal MET goal, Show patient to take own pulse /validate performance until accurate, Instruct on home exercise - 30-day Reassessments 30 day Reassessments:: Met - Physical Activity Home Exercise Physical Activity - Home Exercise: Safe Exercise, Warm-up, Self-monitoring, Cool-Down, Home Exercise > 30 min Daily, Sitting Time <3 hours/daily - Outcomes & Goals Outcomes/Goals: Demonstrates correct Warm-up/exercise Cool-Down (S3) if = 2.5 METs, Verbalizes symptoms of exercise intolerance by Session 3 (S3), Demonstrate safe equipment use (S3) & follows exercise prescrition (6) - Intervention & Plan Plan/Intervention: Instruct warm-up & cool-down if exercising at > 2 METs, Instruct on symptoms of exercise intolerance & actions to take, Instruct & monitor on saf, Assess intial functional capacity & safety risk - 30-day Reassessments 30 day Reassessments:: Met Nutrition - Initial Assessment Nutrition - 30-Day Assessment - Program Goals Nutrition Program Goals: LDL <100 optimal. 100 - 129 Near optimal. 130 - 159 Borderline High. 160 - 189 High. Total Cholesterol <200 desirable. 200 - 239 Borderline High. >/= 240 High. HDL < 40 Low >/=60 High. Triglycerides <150 desirable. <199 optimal. VlDL 5 - 40. HgbA1C <7%. BMI <25 Patient has diagnosis of Hyperlipidemia (ICD E78)?: Yes - Visit Date of Assessment:: 05/06/22 Session #:: 11 - Cholesterol/Lipids (Other Core Measures) Triglycerides (mg/dL): 127 - 10/26/2019 Total Cholesterol (mg/dL): 124 LDL Cholesterol (mg/dL): 61 HDL Cholesterol (mg/dL): 38 Determine presence & major risk factors that modify LDL goal: Hypertension or hypertensive medication, Low HDL cholesterol <40 mg/dL*, Family history of premature CHD in Male < 55 years: female <65 yearsFa, Age men > 45 years; women >/= 55 years Outcomes/Goals: Pt IDs own risk factors & lifestyle modifications by Session 10, Verbalizes symptoms of angina & response by session 3., Pt independently manages Intervention/Plan: Instruct on personal lipid levels & lipid goals/NCEP guidelines, Instruct on cholesterol Referral to dietitian:: No - Met with Nutrition on 04/21/2022 30-day Reassessments:: Progressing - Diabetes (Other Core Measures) Diabetes Type: Not Applicable - Weight Mgt (Other Care) Not Applicable: Yes Height: 5 ft 9 in Weight:: 178 lb 8 oz BMI: 26.3 Diagnosis Overweight/Obesity BMI> 30% ICD-10 E66: No Diagnosis High BMI/Morbid Obesity BMI> 35% ICD-10 Z68: No Outcomes/Goals: Pt sets, maintains & shows weight loss goal & trend during rehab Intervention/Plan: Instruct on ideal BMI & set weight loss goal w/patient 30 day Reassessments:: Met - Healthy Eating Habits Will attend diet classes:: Yes Outcomes/Goals:: Consume diet rich in vegs,fruits,whole grain/high fiber,fish,lean meat Intervention/Plan:: Assess current eating habits 30-day Reassessments:: Met - Education Gave educational materials for:: Healthy eating Nutrition - 60-Day Assessment Nutrition - 90-Day Assessment Nutrition - Final Assessment Core - Initial Assessment Core - 30-Day Assessment - Visit Date of Eval: 05/06/22 Session #:: 11 - Medication Compliance Preventative Medication(s):: Aspirin, Clopidogrel/P2Y12 inhibit, Statin/lipid, Beta kaylene H/O mental health issues: depression, anxiety, or addiction?: No Doesn?t believe in the benefits of treatment?: No Believes medications are unnecessary or harmful?: No Has a concern about medication side effects?: No Expresses concern over the cost of medications?: No Outcomes/Goals: Verbalizes medications,desired effect & common side effects @ DC, Pt self-reports following medication regimen, Keeps card in wallet w/medications listed by DC Interventions/plans: Instruct on medication effects & side effects, Review medication list w/patient every two weeks, Instruct importance of taking meds as ordered & assist problem solving 30-day Reassessments:: Met - Tobacco Use Tobacco Use: Non-smoker - Hypertension Hypertension Diagnosis:: Hypertension ICD-10 I10 Resting Blood Pressure:: 136/52 [place] [employer] Hypertension Guidelines: [place] [employer] Hypertension Guidelines. Normal BP Less than 120/80. Elevated BP 120/80. Hypertension Stage 1: BP 130-139/80-89. Hypertesnion Stage 2: BP 140 or higher/90 or higher. Hypertension Crisis: BP higher than 180/120 Peak Exercise Blood Pressure:: 140/50 Outcomes/Goals: Able to verbalize/achieve optimal blood pressure <130/80, Incorporates diet changes & exercise for blood pressure control by DC Interventions/plan: Instruct on optimal blood pressure, hypertension & medications, Instruct on effects of sodium, alcohol, stress, exercise &hypertension 30 day Reassessments:: Progressing - Tobacco Cessation Referral Smoking Cessation Referral:: No Individual Education/Counseling:: No Education Schedule Given:: Yes Core - 60-Day Assessment Core - 90 Day Assessment Core - Final Assessment Psychosocial - Initial Assess Psychosocial - 30-Day Assess - VIsit Date of Eval: 05/06/22 Session #:: 11 Not Applicable: Yes History of previous Mental disease:: No - Psychosocial Test Tool Used:: PHQ-9 Questionnaire phq-9 Severity: Severity. 1-4 Minimal Depression. 5-9 Mild Depression. 10-14 Moderate Depression. 15-19 Moderately Sever Depression. 20-27 Severe Depression. Rule: - Referral to Behavioral Health PS - Interventions: Yes Attend Stress Management Classes, No Referral to Behavioral Health if PHQ-9 score >9:, No Referral to [facility], No Referral to Physician if PHQ-9 if score is 5-9: - Outcomes/Goals: See list Psychosocial Outcomes/Goals:: ID's personal stressors & 2 strategies to manage stress by discharge - Intervention/Plan: See List Interventions/Plan:: Assess stressors,coping strategies & signs of derpression on admission, Instruct/assist pt to develop coping & personal stress Mgt strategies, Instruct patient to recognize signs & symptoms of depression, Instruct patient to recog - 30-day Reassessments: 30 day Reassessments:: Progressing Psychosocial - 60-Day Assess Psychosocial - 90-Day Assess Psychosocial - Final Assessmen Patient Health Questionnaire 30-Day Re-eval Assessment 1. Little interest or pleasure in doing things: Not at all 3. Trouble falling or staying asleep, or sleeping too much: More than half the days 4. Feeling tired or having little energy: More than half the days 5. Poor appetite or overeating: Not at all 6. Feeling bad about yourself -- or that you are a failure or have let yourself or your family down: Not at all 7. Trouble concentrating on things, such as reading the newspaper or watching television: Not at all 8. Moving or speaking so slowly that other people could have noticed. Or the opposite - being so fidgety or restless that you have been moving around a lot more than usual: Not at all 9. Thoughts that you would be better off , or of hurting yourself in some way: Not at all How difficult have these problems made it for you to do your work, take care of things at home, or get along with other people?: Somewhat difficult Total Score: 4 Self-Efficacy 30-Day Re-eval Assessment We would like to know how confident you are in doing certain activities. Please select your confidence level for:: Select your confidence level for the following using the scale 1-10 where 1 is not at all confident and 10 is totally confident. Your score is the average of all 6 responses. Fatigue: How confident are you that you can keep the fatigue caused by your disease from interfering with the things you want to do? Select Number: 8 Physical Discomfort or Pain: How confident are you that you can keep the physical discomfort or pain of your disease from interfering with the things you want to do? Select Number: 8 Emotional Distress: How confident are you that you can keep the emotional distress caused by your disease from interfering with the things you want to do? Other Symptoms or Health Problems: How confident are you that you can keep other symptoms or health problems from interfering with the things you want to do? Select Number: 8 Different Tasks and Activities: How confident are you that you can do the different tasks and activities needed to manage your health condition so as to reduce your need to see a doctor? Select Number: 8 Medication: How confident are you that you can do things other than just taking medication to reduce how much your illness affects your everyday life? Select Number: 9 Nutrition Survey
[2022-05-06 12:02] VITALS: BP 136/52; BP 140/50; BMI 26.3
== END 2022-05-13 23:59 ==
LOC: CR 11:30
PROVIDERS: PCP Family Medicine; Visit Provider Internal Medicine Cardiovascular Disease
DX: I25.10 Atherosclerotic heart disease of native coronary artery without angina pectoris (principal); Z98.61 Coronary angioplasty status
CPT/HCPCS: 93798; 97802

== ENCOUNTER 2022-06-13 11:30 | Outpatient (RCR) | payer MEDICARE, OTHER, SELFPAY ==
[2022-05-06 12:02] VITALS: BMI 26.3
[2022-05-14 00:30] VITALS: BP 136/52; BP 140/50
--- NOTE | 2022-06-02 08:57 | PCM.CR.ITP ---
Diagnosis Exercise - 60-day Assessment - Visit Date of Eval: 06/02/22 Session #:: 20 - Physician Prescribed Exercise Modalities: Treadmill, Rower, NuStep Frequency: 3x/week for 12 weeks [36 sessions] Intensity: 60-80% of age predicted maximum heart rate reserve Duration: 30 - 45 minutes Current METSs:: 7.0 Target Heart Rate:: 109-125 Current RPE:: 13 Maximum Excercise HR:: 79 Resting Blood Pressure: 130/52 Maximum Exercise Blood Pressure: 138/60 EKG Type: Sinus Zachery to sinus rhythm with occasional PACs and PVCs. Current Physical Activity or Exercising minutes: 36:08 - Outcomes & Goals Goals:: Verbalizes understanding of THR, RPE & goal METS by session 6, Documents in home exercise log/reports 30 min aerobic 5 day/wk by DC, Demonstrates accurate pulse taking by DC - Intervention & Plan Exercise Program Goals: Instruct on personal THR & RPE, Instruct on MET level & personal MET goal, Show patient to take own pulse /validate performance until accurate, Instruct on home exercise - 30-day Reassessments 30 day Reassessments:: Met - Physical Activity Home Exercise Physical Activity - Home Exercise: Safe Exercise, Warm-up, Self-monitoring, Cool-Down, Home Exercise > 30 min Daily, Sitting Time <3 hours/daily - Outcomes & Goals Outcomes/Goals: Demonstrates correct Warm-up/exercise Cool-Down (S3) if = 2.5 METs, Verbalizes symptoms of exercise intolerance by Session 3 (S3), Demonstrate safe equipment use (S3) & follows exercise prescrition (6) - Intervention & Plan Plan/Intervention: Instruct warm-up & cool-down if exercising at > 2 METs, Instruct on symptoms of exercise intolerance & actions to take, Instruct & monitor on saf, Assess intial functional capacity & safety risk - 30-day Reassessments 30 day Reassessments:: Met Nutrition - Initial Assessment Nutrition - 30-Day Assessment Nutrition - 60-Day Assessment - Program Goals Nutrition Program Goals: LDL <100 optimal. 100 - 129 Near optimal. 130 - 159 Borderline High. 160 - 189 High. Total Cholesterol <200 desirable. 200 - 239 Borderline High. >/= 240 High. HDL < 40 Low >/=60 High. Triglycerides <150 desirable. <199 optimal. VlDL 5 - 40. HgbA1C <7%. BMI <25 Patient has diagnosis of Hyperlipidemia (ICD E78)?: Yes - Visit Date of Assessment:: 06/02/22 Session #:: 20 - Cholesterol/Lipids (Other Core Measures) Triglycerides (mg/dL): 127 Total Cholesterol (mg/dL): 124 LDL Cholesterol (mg/dL): 61 HDL Cholesterol (mg/dL): 38 Determine presence & major risk factors that modify LDL goal: Hypertension or hypertensive medication, Low HDL cholesterol <40 mg/dL*, Family history of premature CHD in Male < 55 years: female <65 yearsFa, Age men > 45 years; women >/= 55 years Outcomes/Goals: Pt IDs own risk factors & lifestyle modifications by Session 10, Verbalizes symptoms of angina & response by session 3., Pt independently manages Intervention/Plan: Instruct on personal lipid levels & lipid goals/NCEP guidelines, Instruct on cholesterol Referral to dietitian:: No - Nutrition Consultation on 04/21/2022 30-day Reassessments:: Met - Diabetes (Other Core Measures) Diabetes Type: Not Applicable - Weight Mgt (Other Care) Not Applicable: Yes Height: 5 ft 9 in Weight:: 179 lb BMI: 26.4 Diagnosis Overweight/Obesity BMI> 30% ICD-10 E66: No Diagnosis High BMI/Morbid Obesity BMI> 35% ICD-10 Z68: No Outcomes/Goals: Pt sets, maintains & shows weight loss goal & trend during rehab Intervention/Plan: Instruct on ideal BMI & set weight loss goal w/patient 30 day Reassessments:: Met - Healthy Eating Habits Will attend diet classes:: Yes Outcomes/Goals:: Consume diet rich in vegs,fruits,whole grain/high fiber,fish,lean meat Intervention/Plan:: Assess current eating habits 30-day Reassessments:: Met - Education Gave educational materials for:: Healthy eating Nutrition - 90-Day Assessment Nutrition - Final Assessment Core - Initial Assessment Core - 30-Day Assessment Core - 60-Day Assessment - Visit Date of Eval: 06/02/22 Session #:: 20 - Medication Compliance Preventative Medication(s):: Aspirin, Clopidogrel/P2Y12 inhibit, Statin/lipid, Beta kaylene H/O mental health issues: depression, anxiety, or addiction?: No Doesn?t believe in the benefits of treatment?: No Believes medications are unnecessary or harmful?: No Has a concern about medication side effects?: No Expresses concern over the cost of medications?: No Outcomes/Goals: Verbalizes medications,desired effect & common side effects @ DC, Pt self-reports following medication regimen, Keeps card in wallet w/medications listed by DC Interventions/plans: Instruct on medication effects & side effects, Review medication list w/patient every two weeks, Instruct importance of taking meds as ordered & assist problem solving 30-day Reassessments:: Met - Tobacco Use Tobacco Use: Non-smoker - Hypertension Hypertension Diagnosis:: Hypertension ICD-10 I10 Resting Blood Pressure:: 130/48 [place] [employer] Hypertension Guidelines: [place] [employer] Hypertension Guidelines. Normal BP Less than 120/80. Elevated BP 120/80. Hypertension Stage 1: BP 130-139/80-89. Hypertesnion Stage 2: BP 140 or higher/90 or higher. Hypertension Crisis: BP higher than 180/120 Peak Exercise Blood Pressure:: 150/62 Outcomes/Goals: Able to verbalize/achieve optimal blood pressure <130/80, Incorporates diet changes & exercise for blood pressure control by DC Interventions/plan: Instruct on optimal blood pressure, hypertension & medications, Instruct on effects of sodium, alcohol, stress, exercise &hypertension 30 day Reassessments:: Progressing - Tobacco Cessation Referral Smoking Cessation Referral:: No Individual Education/Counseling:: No Education Schedule Given:: Yes Core - 90 Day Assessment Core - Final Assessment Psychosocial - Initial Assess Psychosocial - 30-Day Assess Psychosocial - 60-Day Assess - VIsit Date of Eval: 06/02/22 Session #:: 20 Not Applicable: Yes History of previous Mental disease:: No - Psychosocial Test Tool Used:: PHQ-9 Questionnaire phq-9 Severity: Severity. 1-4 Minimal Depression. 5-9 Mild Depression. 10-14 Moderate Depression. 15-19 Moderately Sever Depression. 20-27 Severe Depression. Rule: - Referral to Behavioral Health PS - Interventions: Yes Attend Stress Management Classes, No Referral to Behavioral Health if PHQ-9 score >9:, No Referral to [facility], No Referral to Physician if PHQ-9 if score is 5-9: - Outcomes/Goals: See list Psychosocial Outcomes/Goals:: ID's personal stressors & 2 strategies to manage stress by discharge - Intervention/Plan: See List Interventions/Plan:: Assess stressors,coping strategies & signs of derpression on admission, Instruct/assist pt to develop coping & personal stress Mgt strategies, Instruct patient to recognize signs & symptoms of depression, Instruct patient to recog - 30-day Reassessments: 30 day Reassessments:: Met Psychosocial - 90-Day Assess Psychosocial - Final Assessmen Patient Health Questionnaire 60-Day Re-eval Assessment 1. Little interest or pleasure in doing things: Not at all 2. Feeling down, depressed, or hopeless: Not at all 3. Trouble falling or staying asleep, or sleeping too much: More than half the days 4. Feeling tired or having little energy: More than half the days 5. Poor appetite or overeating: Not at all 6. Feeling bad about yourself -- or that you are a failure or have let yourself or your family down: Not at all 7. Trouble concentrating on things, such as reading the newspaper or watching television: Not at all 8. Moving or speaking so slowly that other people could have noticed. Or the opposite - being so fidgety or restless that you have been moving around a lot more than usual: Not at all 9. Thoughts that you would be better off , or of hurting yourself in some way: Not at all How difficult have these problems made it for you to do your work, take care of things at home, or get along with other people?: Somewhat difficult Total Score: 4 Self-Efficacy 60-Day Re-eval Assessment We would like to know how confident you are in doing certain activities. Please select your confidence level for:: Select your confidence level for the following using the scale 1-10 where 1 is not at all confident and 10 is totally confident. Your score is the average of all 6 responses. Fatigue: How confident are you that you can keep the fatigue caused by your disease from interfering with the things you want to do? Select Number: 9 Physical Discomfort or Pain: How confident are you that you can keep the physical discomfort or pain of your disease from interfering with the things you want to do? Select Number: 8 Emotional Distress: How confident are you that you can keep the emotional distress caused by your disease from interfering with the things you want to do? Select Number: 8 Other Symptoms or Health Problems: How confident are you that you can keep other symptoms or health problems from interfering with the things you want to do? Select Number: 8 Different Tasks and Activities: How confident are you that you can do the different tasks and activities needed to manage your health condition so as to reduce your need to see a doctor? Select Number: 8 Medication: How confident are you that you can do things other than just taking medication to reduce how much your illness affects your everyday life? Select Number: 10 Total Score:: 8 Nutrition Survey
[2022-06-02 09:07] VITALS: BP 130/48; BP 130/52; BP 150/62; BMI 26.4
== END 2022-06-13 23:59 ==
LOC: CR 11:30
PROVIDERS: PCP Family Medicine; Visit Provider Internal Medicine Cardiovascular Disease
DX: I25.10 Atherosclerotic heart disease of native coronary artery without angina pectoris (principal); Z98.61 Coronary angioplasty status
CPT/HCPCS: 93798

== ENCOUNTER → 2022-06-17 | Outpatient (CLI) | payer MEDICARE, OTHER, SELFPAY ==
[2022-06-02 09:07] VITALS: BMI 26.4
--- NOTE | 2022-06-18 09:58 | PFT ---
INTRODUCTION: The patient is a 76-year-old male that presents for pulmonary function studies secondary to a diagnosis of amiodarone use. Respiratory therapy reported good patient effort. Bronchodilators were used during testing. INTERPRETATION: Forced expiration spirometry demonstrates the presence of a mild large airways obstructive ventilatory defect. There was a significant response to aerosolized bronchodilators. Spirograms are of good quality but do not plateau indicating slow emptying of the lungs. Body plethysmography was performed and revealed lung volumes to be within normal limits. Diffusing capacity by single breath CO was also within normal limits. IMPRESSION: Partially reversible mild large airways obstructive ventilatory defect with preserved lung volumes and diffusing capacity.
== END | disposition home or self-care (01) ==
LOC: PSN 10:32
PROVIDERS: PCP Family Medicine; Visit Provider Nurse Practitioner Gerontology
DX: Z79.899 Other long term (current) drug therapy (principal)
CPT/HCPCS: 94060; 94726; 94729

== ENCOUNTER → 2022-07-01 | Outpatient (CLI) | payer MEDICARE, OTHER, SELFPAY ==
[2022-06-02 09:07] VITALS: BMI 26.4
--- NOTE | 2022-07-01 10:34 | ART_ITS ---
Reason For Study: Claudication Procedure A bilateral lower extremity continuous wave Doppler with analog waveform analysis,segmental pressures,and ankle brachial indexes with exercise. Left Segmental Pressures Left brachial= 153mmHg. Left posterior tibial artery = 163mmHg. Left dorsalis pedis artery = 161mmHg. Left digit = 71 mmHg. The left posterior tibial artery waveforms are biphasic. The left dorsalis pedis waveforms are biphasic. Right Segmental Pressures Right brachial= 152mmHg. Right posterior tibial artery = 154mmHg. Right dorsalis pedis artery = 172mmHg. Right digit = 53 mmHg. The right posterior tibial artery waveforms are biphasic. The right dorsalis pedis waveforms are biphasic. Indices The right ankle brachial index by the posterior tibial artery is 1.01. The right ankle brachial index by the dorsalis pedis is 1.12. The right digital-brachial index is 0.35. The right ankle brachial index by the dorsalis pedis post exercise is 0.62. The left ankle brachial index by the posterior tibial artery is 1.07. The left ankle brachial index by the dorsalis pedis is 1.05. The left digital-brachial index is 0.46. The left posterior tibial artery index post exercise is 0.87. VL/Lower Ext Art Exam w/ Exercise Interpretation Summary Right JABARI 1.12, normal. Doppler/PVR waveforms of the right leg normal at rest. TBI diminished, pedal/digit disease vs spasm. Right lower extremity exhibits abnormal response to exercise with post exercise JABARI in the moderate category. Left JABARI 1.07, normal. Doppler/PVR waveforms of the left leg normal at rest. TB I diminished, pedal/digit disease vs spasm. Left lower extremity exhibits abnormal response to exercise, with post exercise JABARI in the moderate category. Ordering Physician: Tiff Rubin Referring Physician: Neo Maher M.D. Performed By: Willis Andrea RVT
== END | disposition home or self-care (01) ==
LOC: CVS 10:34
PROVIDERS: PCP Family Medicine; Referring Provider Physician Assistant; Visit Provider Physician Assistant
DX: I73.9 Peripheral vascular disease, unspecified (principal)
CPT/HCPCS: 93924

== ENCOUNTER 2022-07-09 11:30 | Outpatient (RCR) | payer MEDICARE, OTHER, SELFPAY ==
[2022-06-02 09:07] VITALS: BMI 26.4
[2022-06-14 01:54] VITALS: BP 130/48; BP 130/52; BP 150/62
--- NOTE | 2022-07-02 06:36 | CR.ITP_ITS ---
Diagnosis Exercise - 90-day Assessment - Visit Date of Eval: 07/02/22 Session #:: 32 - Physician Prescribed Exercise Modalities: Treadmill, Rower, NuStep Frequency: 3x/week for 12 weeks [36 sessions] Intensity: 60-80% of age predicted maximum heart rate reserve Duration: 30 - 45 minutes Current METSs:: 7.0 Target Heart Rate:: 109-125 Current RPE:: 13 Maximum Excercise HR:: 88 Resting Blood Pressure: 140/58 Maximum Exercise Blood Pressure: 154/50 EKG Type: Sinus faraz to sinus rhythm with rare PACs and PVCs. Current Physical Activity or Exercising minutes: 34:56 - Outcomes & Goals Goals:: Verbalizes understanding of THR, RPE & goal METS by session 6, Documents in home exercise log/reports 30 min aerobic 5 day/wk by DC, Demonstrates accurate pulse taking by DC - Intervention & Plan Exercise Program Goals: Instruct on personal THR & RPE, Instruct on MET level & personal MET goal, Show patient to take own pulse /validate performance until accurate, Instruct on home exercise - 30-day Reassessments 30 day Reassessments:: Met - Physical Activity Home Exercise Physical Activity - Home Exercise: Safe Exercise, Warm-up, Self-monitoring, Cool-Down, Home Exercise > 30 min Daily, Sitting Time <3 hours/daily - Outcomes & Goals Outcomes/Goals: Demonstrates correct Warm-up/exercise Cool-Down (S3) if = 2.5 METs, Verbalizes symptoms of exercise intolerance by Session 3 (S3), Demonstrate safe equipment use (S3) & follows exercise prescrition (6) - Intervention & Plan Plan/Intervention: Instruct warm-up & cool-down if exercising at > 2 METs, Instruct on symptoms of exercise intolerance & actions to take, Instruct & monitor on saf, Assess intial functional capacity & safety risk - 30-day Reassessments 30 day Reassessments:: Met Nutrition - Initial Assessment Nutrition - 30-Day Assessment Nutrition - 60-Day Assessment Nutrition - 90-Day Assessment - Program Goals Nutrition Program Goals: LDL <100 optimal. 100 - 129 Near optimal. 130 - 159 Borderline High. 160 - 189 High. Total Cholesterol <200 desirable. 200 - 239 Borderline High. >/= 240 High. HDL < 40 Low >/=60 High. Triglycerides <150 desirable. <199 optimal. VlDL 5 - 40. HgbA1C <7%. BMI <25 Patient has diagnosis of Hyperlipidemia (ICD E78)?: Yes - Visit Date of Assessment:: 07/02/22 Session #:: 32 - Cholesterol/Lipids (Other Core Measures) Triglycerides (mg/dL): 127 Total Cholesterol (mg/dL): 124 LDL Cholesterol (mg/dL): 61 HDL Cholesterol (mg/dL): 38 Determine presence & major risk factors that modify LDL goal: Hypertension or hypertensive medication, Low HDL cholesterol <40 mg/dL*, Age men > 45 years; women >/= 55 years Outcomes/Goals: Pt IDs own risk factors & lifestyle modifications by Session 10, Verbalizes symptoms of angina & response by session 3., Pt independently manages Intervention/Plan: Instruct on personal lipid levels & lipid goals/NCEP guideli christos, Instruct on cholesterol Referral to dietitian:: No - Patient met with Nutrition Services on 04/21/2022 30-day Reassessments:: Met - Diabetes (Other Core Measures) Diabetes Type: Not Applicable - Weight Mgt (Other Care) Not Applicable: Yes Height: 5 ft 9 in Weight:: 179 lb BMI: 26.4 Diagnosis Overweight/Obesity BMI> 30% ICD-10 E66: No Diagnosis High BMI/Morbid Obesity BMI> 35% ICD-10 Z68: No Outcomes/Goals: Pt sets, maintains & shows weight loss goal & trend during rehab Intervention/Plan: Instruct on ideal BMI & set weight loss goal w/patient - Healthy Eating Habits Will attend diet classes:: Yes Outcomes/Goals:: Consume diet rich in vegs,fruits,whole grain/high fiber,fish,lean meat, Limit sat/trans fats,cholesterol & added salts & sugars Intervention/Plan:: Assess current eating habits 30-day Reassessments:: Met - Education Gave educational materials for:: Healthy eating Nutrition - Final Assessment Core - Initial Assessment Core - 30-Day Assessment Core - 60-Day Assessment Core - 90 Day Assessment - Visit Date of Eval: 07/02/22 Session #:: 32 - Medication Compliance Preventative Medication(s):: Aspirin, Clopidogrel/P2Y12 inhibit, Statin/lipid, Beta kaylene H/O mental health issues: depression, anxiety, or addiction?: No Doesn?t believe in the benefits of treatment?: No Believes medications are unnecessary or harmful?: No Has a concern about medication side effects?: No Expresses concern over the cost of medications?: No Outcomes/Goals: Verbalizes medications,desired effect & common side effects @ DC, Pt self-reports following medication regimen, Keeps card in wallet w/medications listed by DC Interventions/plans: Instruct on medication effects & side effects, Review medication list w/patient every two weeks, Instruct importance of taking meds as ordered & assist problem solving 30-day Reassessments:: Met - Tobacco Use Tobacco Use: Non-smoker - Hypertension Hypertension Diagnosis:: Hypertension ICD-10 I10 Resting Blood Pressure:: 122/50 Citizen Of [place] [employer] Hypertension Guidelines: Citizen [place] [employer] Hypertension Guidelines. Normal BP Less than 120/80. Elevated BP 120/80. Hypertension Stage 1: BP 130-139/80-89. Hypertesnion Stage 2: BP 140 or higher/90 or higher. Hypertension Crisis: BP higher than 180/120 Peak Exercise Blood Pressure:: 154/50 Outcomes/Goals: Able to verbalize/achieve optimal blood pressure <130/80, Incorporates diet changes & exercise for blood pressure control by DC Interventions/plan: Instruct on optimal blood pressure, hypertension & medications, Instruct on effects of sodium, alcohol, stress, exercise &hypertension 30 day Reassessments:: Met - Tobacco Cessation Referral Smoking Cessation Referral:: No Individual Education/Counseling:: No Education Schedule Given:: Yes - Patient actively participated in education. Core - Final Assessment Psychosocial - Initial Assess Psychosocial - 30-Day Assess Psychosocial - 60-Day Assess Psychosocial - 90-Day Assess - VIsit Date of Eval: 07/02/22 Session #:: 32 Not Applicable: Yes History of previous Mental disease:: No - Psychosocial Test Tool Used:: PHQ-9 Questionnaire phq-9 Severity: Severity. 1-4 Minimal Depression. 5-9 Mild Depression. 10-14 Moderate Depression. 15-19 Moderately Sever Depression. 20-27 Severe Depression. Rule: - Referral to Behavioral Health PS - Interventions: Yes Attend Stress Management Classes, No Referral to Behavioral Health if PHQ-9 score >9:, No Referral to [facility], No Referral to Physician if PHQ-9 if score is 5-9: - Outcomes/Goals: See list Psychosocial Outcomes/Goals:: ID's personal stressors & 2 strategies to manage stress by discharge - Intervention/Plan: See List Interventions/Plan:: Assess stressors,coping strategies & signs of derpression on admission, Instruct/assist pt to develop coping & personal stress Mgt strategies, Instruct patient to recognize signs & symptoms of depression, Instruct patient to recog - 30-day Reassessments: 30 day Reassessments:: Met Psychosocial - Final Assessmen Patient Health Questionnaire 90-Day Re-eval Assessment 1. Little interest or pleasure in doing things: Not at all 2. Feeling down, depressed, or hopeless: Not at all 3. Trouble falling or staying asleep, or sleeping too much: Not at all 4. Feeling tired or having little energy: Not at all 5. Poor appetite or overeating: Not at all 6. Feeling bad about yourself -- or that you are a failure or have let yourself or your family down: Not at all 7. Trouble concentrating on things, such as reading the newspaper or watching television: Not at all 8. Moving or speaking so slowly that other people could have noticed. Or the opposite - being so fidgety or restless that you have been moving around a lot more than usual: Not at all 9. Thoughts that you would be better off , or of hurting yourself in some way: Not at all How difficult have these problems made it for you to do your work, take care of things at home, or get along with other people?: Not difficult at all Total Score: 0 Self-Efficacy 90-Day Re-eval Assessment We would like to know how confident you are in doing certain activities. Please select your confidence level for:: Select your confidence level for the following using the scale 1-10 where 1 is not at all confident and 10 is totally confident. Your score is the average of all 6 responses. Fatigue: How confident are you that you can keep the fatigue caused by your disease from interfering with the things you want to do? Select Number: 9 Physical Discomfort or Pain: How confident are you that you can keep the physical discomfort or pain of your disease from interfering with the things you want to do? Select Number: 10 Emotional Distress: How confident are you that you can keep the emotional distress caused by your disease from interfering with the things you want to do? Select Number: 10 Other Symptoms or Health Problems: How confident are you that you can keep other symptoms or health problems from interfering with the things you want to do? Select Number: 10 Different Tasks and Activities: How confident are you that you can do the different tasks and activities needed to manage your health condition so as to reduce your need to see a doctor? Select Number: 10 Medication: How confident are you that you can do things other than just taking medication to reduce how much your illness affects your everyday life? Select Number: 10 Total Score:: 9 Nutrition Survey
[2022-07-02 06:43] VITALS: BP 122/50; BP 140/58; BP 154/50; BMI 26.4
== END 2022-07-13 23:59 ==
LOC: CR 11:30
PROVIDERS: PCP Family Medicine; Visit Provider Internal Medicine Cardiovascular Disease
DX: I25.10 Atherosclerotic heart disease of native coronary artery without angina pectoris (principal); Z98.61 Coronary angioplasty status
CPT/HCPCS: 93798

== ENCOUNTER → 2022-08-07 | Outpatient (CLI) | payer MEDICARE, OTHER, SELFPAY ==
[2022-07-02 06:43] VITALS: BMI 26.4
[2022-08-07 11:35] LABS: Bacteria 0 SEEN /hpf (None Seen); Mucous, Urine 0 SEEN /hpf (<or=2+); Red Blood Cells-Urine 0 SEEN /hpf (0-5); Squamous Epithelial Cells - UA 0 SEEN /hpf (0-5); White Blood Cells 0 SEEN /hpf (0-5)
[2022-08-07 12:21] LABS: Color, Urine Straw (Yellow); Glucose, Dipstick Normal (Normal); Ketone-Dipstick Negative (Negative); Leukocyte Esterase-Dipstick Negative /ul (Negative); Nitrite-Dipstick Negative (Negative); Occult Blood-Urine Negative /ul (Negative); Protein-Dipstick Negative (Negative); Urine Bilirubin Dipstick Negative (Negative); Urine Clarity Clear (Clear); Urine Urobilinogen Normal (Normal); Urine pH 6.5 (5.0 - 8.0)
== END | disposition home or self-care (01) ==
LOC: LABSPEC 11:33
PROVIDERS: PCP Family Medicine; Referring Provider Family Medicine; Visit Provider Family Medicine
DX: I10 Essential (primary) hypertension (principal)
CPT/HCPCS: 81001

== ENCOUNTER → 2022-09-17 | Outpatient (CLI) | payer MEDICARE, OTHER, SELFPAY ==
[2022-07-02 06:43] VITALS: BMI 26.4
[2022-09-17 10:46] LABS: AST(SGOT) 16 U/L (15-37); Alanine Aminotransfer ALT/SGPT 21 U/L (16-61); Albumin, Serum 3.5 g/dL (3.2-5.0); Alkaline Phosphatase 91 U/L (45-117); Anion Gap 4 (5-15); BUN 19 mg/dL (7-18); BUN/Creat Ratio 18.8 RATIO (10-20); Calcium,Total 8.7 mg/dL (8.5-10.1); Chloride 105 mmol/L (98-107); Creatinine, Serum 1.01 mg/dL (0.70-1.30); EST Glomerular Filtration Rate 77 mL/min (>60); Est Glom Filt Rate - Afr Amer 93 mL/min (>60); Globulin 3.4 g/dL (2.2-4.2); Glucose 88 mg/dL (74-106); Potassium 4.3 mmol/L (3.5-5.1); Protein, Total 6.9 g/dL (6.4-8.2); Sodium Level 137 mmol/L (136-145); Thyroid Stim Hormone (TSH) 3.62 uIU/mL (0.358-3.74)
== END | disposition home or self-care (01) ==
PROVIDERS: PCP Family Medicine; Referring Provider Internal Medicine Cardiovascular Disease; Visit Provider Internal Medicine Cardiovascular Disease
DX: E78.5 Hyperlipidemia, unspecified (principal); E03.9 Hypothyroidism, unspecified; I10 Essential (primary) hypertension; R00.1 Bradycardia, unspecified
CPT/HCPCS: 36415; 80053; 84443

== ENCOUNTER → 2022-09-23 | Outpatient (CLI) | payer MEDICARE, OTHER, SELFPAY ==
[2022-07-02 06:43] VITALS: BMI 26.4
== END | disposition home or self-care (01) ==
LOC: PSN 09:14
PROVIDERS: PCP Family Medicine; Referring Provider Internal Medicine Cardiovascular Disease; Visit Provider Internal Medicine Cardiovascular Disease
DX: R00.1 Bradycardia, unspecified (principal); J44.9 Chronic obstructive pulmonary disease, unspecified; Z79.899 Other long term (current) drug therapy; E03.9 Hypothyroidism, unspecified; R94.39 Abnormal result of other cardiovascular function study

== ENCOUNTER → 2022-11-12 | Outpatient (CLI) | payer MEDICARE, OTHER, SELFPAY ==
[2022-07-02 06:43] VITALS: BMI 26.4
--- NOTE | 2022-11-12 10:50 | CDU_ITS ---
Reason For Study: S/P Left CEA Rt. Velocities/BP Lt. Velocities/BP Prox CCA 83.4/13.5 cm/sec. Prox CCA 108.7/26.3 cm/sec. Mid CCA 80.6/11.6 cm/sec. Mid CCA 465.6/85 cm/sec. Dist CCA 64.5/15.4 cm/sec. Dist CCA 122.6/6 cm/sec. Prox ICA 121.1/24.3 cm/sec. Prox ICA 49.3/11.6 cm/sec. Mid ICA 228.9/50 cm/sec. Mid ICA 76.8/25.8 cm/sec. Dist ICA 122.6/26.7 cm/sec. Dist ICA 73/22 cm/sec. Rt. ICA/CCA = 2.84. Lt. ICA/CCA = 0.63. Prox ECA 132.4/9.4 cm/sec. Prox ECA 99.2/7.9 cm/sec. Rt. Vert. 75.4/13.3 cm/sec. Lt. Vert. 50.4/6 cm/sec. Right Extracranial There is heterogeneous, irregular atherosclerotic plaque noted in the right common carotid artery. There is heterogeneous, irregular atherosclerotic plaque noted in the right internal carotid artery. There is heterogeneous, irregular atherosclerotic plaque noted in the right external carotid artery. Antegrade flow is noted in the right vertebral artery. Left Extracranial There is heterogeneous, irregular atherosclerotic plaque noted in the left common carotid artery. The left common carotid artery is tortuous. There is intimal thickening but no significant atherosclerotic plaque noted in the left internal carotid artery. There is intimal thickening but no significant atherosclerotic plaque noted in the left external carotid artery. Antegrade flow is noted in the left vertebral artery. Procedure Carotid Duplex [id number]. This is a Carotid Duplex examination using B-mode, color flow and specral Doppler. Exam performed in department. VL/Carotid Duplex Ultrasound Interpretation Summary Moderate (50-69%) stenosis right extracranial internal carotid. Mild (<50%) stenosis left extracranial internal carotid. Mid left common caroti d artery with elevated velocities indicating >70% stenosis but is associated with area of dyn amic kinking; may over estimate degree of stenosis. Patent and antegrade vertebrals bilaterally. Ordering Physician: Blade Dahl Referring Physician: Neo Maher M.D. Performed By: Jeanine Reid RVT
== END | disposition home or self-care (01) ==
LOC: CVS 10:49
PROVIDERS: PCP Family Medicine; Referring Provider Surgery Trauma Surgery; Visit Provider Surgery Trauma Surgery
DX: I65.23 Occlusion and stenosis of bilateral carotid arteries (principal)
CPT/HCPCS: 93880

== ENCOUNTER → 2022-11-20 | Outpatient (CLI) | payer MEDICARE, OTHER, SELFPAY ==
[2022-07-02 06:43] VITALS: BMI 26.4
--- NOTE | 2022-11-20 13:48 | CT_ITS ---
STUDY: CTA NECK WITH CONTRAST REASON FOR EXAM: Male, 77 years old. s/p L CEA and high velocity on duplex RADIATION DOSAGE (If Supplied By Facility): CTDIvol = ( 16.28 ) mGy, DLP = ( 640.59 ) mGycm TECHNIQUE: CT angiography with multi-detector data acquisition was performed from the aortic arch to the skull base following intravenous administration of IV 100mL Isovue-370. MIP images were reconstructed from the axial data set. Post-processing of the angiographic images was performed, with multiplanar reformation and 3D reconstruction. Individualized dose optimization techniques were used for this CT. COMPARISON: Comparison is made with prior study dated October 17, 2021. FINDINGS: Mild enlargement of the right and left lobes of the thyroid gland. AORTIC ARCH: There is atherosclerotic calcific plaque formation of the aortic arch and great vessels arising from the aortic arch, without a hemodynamically significant stenosis. There is a normal origin of the brachiocephalic, left common carotid, and left subclavian arteries. Normal origins of the brachiocephalic, left common carotid, and left subclavian arteries. Atherosclerotic plaque formation at the origin of the left subclavian artery. RIGHT CAROTID ARTERIES: Normal right common carotid artery (CCA). Normal right common carotid bulb. There is severe atherosclerotic plaque formation of the origin of the right internal carotid artery with a near complete occlusion. Normal visualized cervical portion of the right internal carotid artery. Normal origin of the right external carotid artery (ECA). LEFT CAROTID ARTERIES: There is atherosclerotic plaque formation at the origin of the common carotid artery, but without a hemodynamically significant stenosis. Normal left common carotid bulb. Normal origin of the left internal carotid (ICA) artery without a hemodynamically significant stenosis. Normal visualized cervical portion of the left internal carotid artery. The patient is status post left carotid endarterectomy. The lumen is widely patent. Normal origin of the left external carotid artery (ECA). VERTEBRAL ARTERIES: There is enhancement within the bilateral vertebral arteries with a small right vertebral artery, and a dominant left vertebral artery. CT/CTA Neck W/WO Contrast IMPRESSION: I grade stenosis at the origin of the right internal carotid artery. Status post left carotid endarterectomy. The graft is widely patent. Persistent calcific plaque in the distal portion of the left internal carotid artery. Electronically Signed: Arjun Shaver MD at 15:46 EDT ,
[2022-11-20 14:22] LABS: CREATININE FINGERSTICK 1.2 mg/dL (0.70-1.30); EGFR FINGERSTICK > 60.0000 mL/min (>60)
== END | disposition home or self-care (01) ==
LOC: CT 13:48
PROVIDERS: PCP Family Medicine; Referring Provider Physician Assistant; Visit Provider Physician Assistant
DX: I65.23 Occlusion and stenosis of bilateral carotid arteries (principal); Z98.890 Other specified postprocedural states
CPT/HCPCS: 70498; Q9967

== ENCOUNTER → 2023-02-24 | Outpatient (CLI) | payer MEDICARE, OTHER, SELFPAY ==
[2022-07-02 06:43] VITALS: BMI 26.4
[2023-02-24 12:16] LABS: PSA,Total- Diagnostic 9.15 ng/mL (0.0-4.0)
== END | disposition home or self-care (01) ==
LOC: LAB 11:11
PROVIDERS: PCP Family Medicine; Referring Provider Urology; Visit Provider Urology
DX: N40.1 Benign prostatic hyperplasia with lower urinary tract symptoms (principal)
CPT/HCPCS: 36415; 84153

== ENCOUNTER → 2023-03-23 | Outpatient (CLI) | payer MEDICARE, OTHER, SELFPAY ==
[2022-07-02 06:43] VITALS: BMI 26.4
--- NOTE | 2023-03-23 | PROSBIL_PTH ---
PATHOLOGY RESULTS PATIENT: NIKKO BARAJAS LOC: [facility] U#:[id number] AGE/SX: 77/M ROOM: RE03/23/[address]: Dr. Jam Cohen MD : [id number] BED: DIS: 03/23/2023 SPEC #: [id number] RECD: 03/24/23 08:07 STATUS: [facility]ANKLIN WENDY #: [id number] SARA: 03/23/23 00:[address]: Jam Cohen DEPT: SURGICAL PATHOLOGY RECD BY: Naomi Huggins ENTERED: 03/24/23 08:08 SP TYPE: PROST BX RAZIA DR: Dr. Humphrey Maher, DO Tissues: PROSTATE RIGHT PROSTATE RIGHT PROSTATE RIGHT PROSTATE LEFT PROSTATE LEFT PROSTATE LEFT Procedures: PROSTATE BX HEADER OPERATION: Prostate biopsy PRE-OP DIAGNOSIS: Elevated PSA TISSUE SUBMITTED: A - Right apex, B - Right mid, C - Right base, D - Left apex, E - Left mid, F - Left base MICROSCOPIC DIAGNOSIS A. Right prostate, apex, core biopsy: Prostatic adenocarcinoma. Darwin grade: 5+3=8 Number of cores involved: 1/1 Proportion of tissue involved: ~90% Perineural invasion: Not identified. Greatest tumor length: 0.9 cm See comment. B. Right prostate, mid, core biopsy: Prostatic adenocarcinoma. Yaya grade: 3+4=7 Number of cores involved: 1/1 Proportion of tissue involved: >95% Perineural invasion: Not identified. Greatest tumor length: 1.2 cm C. Right prostate, base, core biopsy: Prostatic adenocarcinoma. Yaya grade: 3+4=7 Number of cores involved: 1/1 Proportion of tissue involved: ~75% Perineural invasion: Not identified. Greatest tumor length: 0.8 cm D. Left prostate, apex, core biopsy: Prostatic adenocarcinoma. Darwin grade: 3+4=7 Number of cores involved: 1/1 Proportion of tissue involved: 60% Perineural invasion: Present, focal. Greatest tumor length: 0.5 cm E. Left prostate, mid, core biopsy: Prostatic adenocarcinoma. Yaya grade: 3+3=6 Number of cores involved: 1/1 Proportion of tissue involved: ~70% Perineural invasion: Not identified. Greatest tumor length: 0.6 cm F. Left prostate, base, core biopsy: Prostatic adenocarcinoma. Yaya grade: 3+4=7 Number of cores involved: 1/1 Proportion of tissue involved: ~50% Perineural invasion: Not identified. Greatest tumor length: 1.0 cm, discontinuous SJ:hugo 03/25/2023 COMMENT A. Focal tertiary pattern Darwin grade 4 is also noted. MICROSCOPIC DESCRIPTION Slides are reviewed. GROSS DESCRIPTION A - Received is one container designated prostate, right apex. The specimen consists of one elongated fragment of light [place]she[place]-white soft tissue measuring 1.0 cm in length and 0.1 cm in diameter. The specimen is totally submitted in one cassette. B - Received is one container designated prostate, right mid. The specimen consists of one elongated fragment of light [place]-white soft tissue measuring 1.3 cm in length and 0.1 cm in diameter. The specimen is totally submitted in one cassette. C - Received is one container designated prostate, right base. The specimen consists of one elongated fragment of light [place]-white soft tissue measuring 1.0 cm in length and 0.1 cm in diameter. The specimen is totally submitted in one cassette. D - Received is one container designated prostate, left apex. The specimen consists of one elongated fragment of light [place]-white soft tissue measuring 0.9 cm in length and 0.1 cm in diameter. The specimen is totally submitted in one cassette. E - Received is one container designated prostate, left mid. The specimen consists of one elongated fragment of light [place]-white soft tissue measuring 0.9 cm in length and 0.1 cm in diameter. The specimen is totally submitted in one cassette. F - Received is one container designated prostate, left base. The specimen consists of one elongated fragment of light [place]-white soft tissue measuring 0.9 cm in length and 0.1 cm in diameter. The specimen is totally submitted in one cassette. / EARL:hugo 03/24/2023 TC:0 CPT: G0146
--- OUTSIDE RECORDS SUMMARY | 2023-03-23 17:20 | XMS RPT_ITS | CCD ---
Author Name Unknown Address [address] [place] [address] Organization [facility] Care Team Providers Care Head Charrer Name Role Phone Davin KAMINSKI, Jelly Montoya Unavailable Tyson Leroy MD Unavailable Carla Perdomo Unavailable Kashmir Bruno MD Unavailable Santosh Maher DO Unavailable [phone] Tyson Leroy Unavailable Santosh Maher DO Unavailable [phone] Santosh Maher DO Primary Care Provider Fatoumata Pimentel MD(Historical) Unavailable Un available ARABELLA LAGUNAS Attending Unavailable SANTOSH MAHER Referring Unavailable SANTOSH MAHER Primary Care Unavailable Allergies Allergy Classification Reported Allergen(s) Allergy Type Date of Onset Reaction(s) Facility (3 sources) Bee pollen; Translations: [BEE POLLEN] Drug Allergy 07-12-2018 Mental Status Change [facility] Medications Completed/Discontinued Medications Medication Drug Class(es) Dates Sig (Normalized) Sig (Original) [id number] actuat albuterol 0.09 mg/actuat metered dose inhaler (2 sources) beta2-Adrenergic Agonist take 2 puff(s) by inhalation every four hours as needed albuterol HFA (PROAIR HFA) 90 mcg/actuation inhaler Inhale 2 Puffs as instructed every 4 hours as needed. 0 Active Problems Active Problems Problem Classification Problem Date Documented Da te Episodic/Chronic Acute myocardial infarction (3 sources) Non-ST elevation (NSTEMI) myocardial infarction; Translations: [Non-ST elevation (NSTEMI) myocardial infarction] Onset: 06-13-2010 06-13-2010 Chronic Chronic obstructive pulmonary disease and bronchiectasis (3 sources) Chronic obstructive lung disease; Translations: [Chronic obstructive pulmonary disease, unspecified] Onset: 05-19-2016 05-19-2016 Chronic Coronary atherosclerosis and other heart disease (12 sources) Coronary atherosclerosis; Translations: [Coronary arteriosclerosis] Onset: 06-13-2010 11-20-2016 Chronic Disorders of lipid metabolism (3 sources) Hyperlipidemia; Translations: [Hyperlipidemia, unspecified] Onset: 06-13-2010 06-13-2010 Chronic Occlusion or stenosis of precerebral arteries (2 sources) Occlusion and stenosis of bilateral carotid arteries; Translations: [Occlusion and stenosis of unspecified carotid artery] Onset: 08-08-2021 Chronic Past or Other Problems Problem Classification Problem Date Documented Da te Episodic/Chronic Cardiac dysrhythmias (3 sources) Palpitations; Translations: [Palpitations] Onset: 08-25-2011 08-25-2011 Episodic Coronary atherosclerosis and other heart disease (3 sources) Coronary angioplasty status; Translations: [Coronary angioplasty status] Onset: 06-13-2010 06-13-2010 Episodic Nonspecific chest pain (3 sources) Precordial pain; Translations: [Precordial pain] Onset: 03-21-2015 03-21-2015 Episodic Other aftercare (3 sources) Other termite helper (current) drug therapy; Translations: [Other termite helper (current) drug therapy] Onset: 06-13-2010 06-13-2010 Episodic Other circulatory disease (9 sources) History of myocardial infarction; Translations: [Cardiovascular stress test abnormal] Onset: 06-13-2010 09-06-2010 Episodic Other connective tissue disease (3 sources) Pain in lower limb; Translations: [Pain in leg, unspecified] Onset: 03-10-2013 03-10-2013 Episodic Other lower respiratory disease (3 sources) Dyspnea; Translations: [Shortness of breath] Onset: 06-13-2010 06-13-2010 Episodic Other nutritional; endocrine; and metabolic disorders (18 sources) Body mass index (BMI) 26.0-26.9, adult; Translations: [Body mass index (BMI) 27.0-27.9, adult] Onset: 09-12-2013 Resolved: 05-19-2016 05-19-2016 Episodic Other screening for suspected conditions (not mental disorders or infectious disease) (1 source) Encounter for screening for other disorder; Translations: [Screening for nephropathy] Onset: 08-08-2021 Episodic Unclassified (3 sources) Family history of stroke; Translations: [Family history of stroke] 09-12-2013 Episodic Results Test Name Value Interpretation Reference Range Facil ity Vital Signs Date Time Vital Sign Value Performing Clinician Rowan barfield 11-20-2016 13:54-0400 BMI (Body Mass Index) 25.69 kg/m2 [facility] Work Phone: 11-20-2016 13:54-0400 BP Diastolic 70 mm[Hg] [facility] Work Phone: 11-20-2016 13:54-0400 BP Systolic 150 mm[Hg] [facility] Work Phone: 11-20-2016 13:54-0400 Height 175.26 cm [facility] Work Phone: 11-20-2016 13:54-0400 Pulse (Heart Rate) 60 /min [facility] Work Phone: 11-20-2016 13:54-0400 Respiratory Rate 20 /min [facility] Work Phone: 11-20-2016 13:54-0400 Weight 78.93 kg [facility] Work Phone: 09-19-2015 13:28-0400 BSA (Body Surface Area) 1.98 m2 [facility] Work Phone: Encounters Encounter Date Encounter Type Care Provider Facility Start: 06-26-2022 Telephone encounter Karla Esau tthews PERSONAL FINANCIAL PLANNER.PRODUCTION LEAD Work Phone: [facility] Procedures Date Procedure Procedure Detail Performing Clinician Start: 11-20-2016 End: 11-20-2016 Follow Up Appt 6 months Jelly her PA-C Work Phone: Start: 11-20-2016 End: 11-20-2016 PFM Jelly Rogers PA-C Work Phone: Start: 05-19-2016 End: 05-19-2016 Follow Up Appt 6 months Tyson Leroy MD Start: 05-19-2016 End: 05-19-2016 DELORIS Leroy MD Start: 03-05-2016 End: 11-11-2016 *Hepatic Function Panel Jelly her PA-C Work Phone: Start: 03-05-2016 End: 11-11-2016 Lipid panel [AGGREGATE] Jelly her PA-C Work Phone: Start: 09-19-2015 End: 09-19-2015 Follow Up Appt 6 months Jelly her PA-C Work Phone: Start: 09-19-2015 End: 09-19-2015 PFM Jelly Rogers PA-C Work Phone: Start: 03-21-2015 End: 09-04-2015 Electrocardiogram, complete Tyson triana MD Start: 03-21-2015 End: 03-21-2015 Follow Up Appt 6 months Tyson Leroy MD Start: 03-21-2015 End: 03-21-2015 DELORIS Leroy MD Start: 03-21-2015 End: 03-29-2015 Nuclear stress test -exercise Tyson brown MD Start: 03-08-2015 End: 09-05-2015 *Hepatic Function Panel Jelly her PA-C Work Phone: Start: 03-08-2015 End: 09-05-2015 Lipid panel [AGGREGATE] Jelly her PA-C Work Phone: Start: 09-18-2014 End: 09-19-2014 Documentation of current medications Jelly Rogers PA-C Work Phone: Start: 09-18-2014 End: 09-18-2014 Follow Up Appt 6 months Jelly her PA-C Work Phone: Start: 09-18-2014 End: 09-18-2014 PFM Jelly Rogers PA-C Work Phone: Start: 09-06-2014 End: 09-06-2014 *Hepatic Function Panel Jelly her PA-C Work Phone: Start: 09-06-2014 End: 09-06-2014 Lipid panel [AGGREGATE] Jelly her PA-C Work Phone: Start: 03-22-2014 End: 03-22-2014 Follow Up Appt 6 months Tyson Leroy MD Start: 03-22-2014 End: 03-22-2014 MMM Tyson Leroy MD Start: 02-13-2014 End: 03-13-2014 *Hepatic Function Panel Tyson Leroy MD Start: 02-13-2014 End: 03-13-2014 Lipid panel [AGGREGATE] Tyson Leroy MD Start: 09-14-2013 End: 09-04-2015 Vascular Surgery Tyson Leroy MD Start: 09-12-2013 End: 03-13-2014 *Hepatic Function Panel Tyson Leroy MD Start: 09-12-2013 End: 09-12-2013 Follow Up Appt 6 months Tyson Leroy MD Start: 09-12-2013 End: 03-13-2014 Lipid panel [AGGREGATE] Tyson Leroy MD Start: 08-14-2013 End: 09-06-2013 *Hepatic Function Panel Jelly her PA-C Work Phone: Start: 08-14-2013 End: 09-06-2013 Lipid panel [AGGREGATE] Jelly her PA-C Work Phone: Start: 03-10-2013 End: 09-04-2015 Arterial exam Jelly Rogers PA-C Work Phone: Start: 03-10-2013 End: 03-10-2013 Follow Up Appt 6 months Jelly her PA-C Work Phone: Start: 03-10-2013 End: 09-04-2015 Nuclear stress test -exercise Jelly Rogers PA-C Work Phone: Start: 03-10-2013 End: 03-10-2013 PFM Jelly Rogers PA-C Work Phone: Start: 02-13-2013 End: 02-21-2013 *Hepatic Function Panel Jelly her PA-C Work Phone: Start: 02-13-2013 End: 02-21-2013 Lipid panel [AGGREGATE] Jelly her PA-C Work Phone: Start: 09-09-2012 End: 09-09-2012 Follow Up Appt 6 months Tyson Leroy MD Start: 09-09-2012 End: 09-09-2012 MMM Tyson Leroy MD Start: 08-14-2012 End: 09-02-2012 *Hepatic Function Panel Tyson Leroy MD Start: 08-14-2012 End: 09-02-2012 Lipid panel [AGGREGATE] Tyson Leroy MD Start: 03-01-2012 End: 09-09-2012 Echocardiography Tyson Leroy MD Start: 03-01-2012 End: 03-01-2012 Electrocardiogram, complete Tyson triana MD Start: 03-01-2012 End: 03-01-2012 Follow Up Appt 6 months Tyson Leroy MD Start: 03-01-2012 End: 09-09-2012 Nuclear stress test -exercise Tyson brown MD Start: 08-25-2011 End: 02-25-2012 *Hepatic Function Panel Tyson Leroy MD Start: 08-25-2011 End: 09-09-2012 Follow Up Appt 6 months Tyson Leroy MD Start: 08-25-2011 End: 02-25-2012 Lipid panel [AGGREGATE] Tyson Leroy MD Start: 02-26-2011 End: 02-25-2012 *Hepatic Function Panel Tyson Leroy MD Start: 02-26-2011 End: 05-05-2011 Electrocardiogram, complete Tyson triana MD Start: 02-26-2011 End: 05-05-2011 Follow Up Appt 6 months Tyson Leroy MD Start: 02-26-2011 End: 02-25-2012 Lipid panel [AGGREGATE] Tyson Leroy MD Plan of Treatment Date Care Activity Detail Author Start: 11-14-2022 Influenza vaccination INFLUENZA (Season Ended) [facility] Start: 03-16-2022 ADVANCE DIRECTIVE DISCUSSION ADVANCE DIRECTIVE DISCUSSION [facility] Start: 03-16-2022 DEPRESSION ASSESSMENT DEPRESSION ASSESSMENT [facility] Start: 06-12-2021 COVID-19 VACCINE (4 - Booster for Moderna series) COVID-19 VACCINE (4 - Booster for Moderna series) [facility] Start: 07-20-2017 End: 07-20-2017 Appointment Appointment [facility] Work Phone: Start: 11-20-2016 End: 11-20-2016 Follow Up Appt 6 months Follow Up Appt 6 months [facility] Work Phone: Start: 11-20-2016 End: 11-20-2016 Nuclear stress test -Lexiscan Nuclear stress test -Lexiscan [facility] Work Phone: Start: 11-20-2016 End: 11-20-2016 PFM PFM [facility] Work Phone: Start: 05-19-2016 End: 05-19-2016 Follow Up Appt 6 months Follow Up Appt 6 months [facility] Work Phone: Start: 05-19-2016 End: 05-19-2016 MMM MMM [facility] Work Phone: Start: 03-05-2016 End: 11-11-2016 *Hepatic Function Panel *Hepatic Function Panel [facility] Work Phone: Start: 03-05-2016 End: 11-11-2016 Lipid panel [AGGREGATE] *Lipid Profile CC PCP [facility] Work Phone: Start: 09-19-2015 End: 09-19-2015 Follow Up Appt 6 months Follow Up Appt 6 months [facility] Work Phone: Start: 09-19-2015 End: 09-19-2015 PFM PFM [facility] Work Phone: Start: 03-21-2015 End: 09-04-2015 Electrocardiogram, complete EKG (In office) [facility] Work Phone: Start: 03-21-2015 End: 03-21-2015 Follow Up Appt 6 months Follow Up Appt 6 months [facility] Work Phone: Start: 03-21-2015 End: 03-21-2015 MMM MMM [facility] Work Phone: Start: 03-21-2015 End: 03-21-2015 Nuclear stress test -exercise Nuclear stress test -exercise [facility] Work Phone: Start: 03-08-2015 End: 09-05-2015 *Hepatic Function Panel *Hepatic Function Panel [facility] Work Phone: Start: 03-08-2015 End: 09-05-2015 Lipid panel [AGGREGATE] *Lipid Profile CC PCP [facility] Work Phone: Start: 09-18-2014 End: 09-18-2014 Follow Up Appt 6 months Follow Up Appt 6 months [facility] Work Phone: Start: 09-18-2014 End: 09-18-2014 PFM PFM [facility] Work Phone: Start: 09-13-2014 End: 09-06-2014 *Hepatic Function Panel *Hepatic Function Panel [facility] Work Phone: Start: 09-13-2014 End: 09-06-2014 Lipid panel [AGGREGATE] *Lipid Profile CC PCP [facility] Work Phone: Start: 03-22-2014 End: 03-22-2014 Follow Up Appt 6 months Follow Up Appt 6 months [facility] Work Phone: Start: 03-22-2014 End: 03-22-2014 MMM MMM [facility] Work Phone: Start: 02-13-2014 End: 03-13-2014 *Hepatic Function Panel *Hepatic Function Panel [facility] Work Phone: Start: 02-13-2014 End: 03-13-2014 Lipid panel [AGGREGATE] *Lipid Profile CC PCP [facility] Work Phone: Start: 09-14-2013 End: 09-04-2015 Vascular Surgery Vascular Surgery Evan Delatorre MD, [address], [address], [address] [facility] Work Phone: Start: 09-12-2013 End: 03-13-2014 *Hepatic Function Panel *Hepatic Function Panel [facility] Work Phone: Start: 09-12-2013 End: 09-12-2013 Follow Up Appt 6 months Follow Up Appt 6 months [facility] Work Phone: Start: 09-12-2013 End: 03-13-2014 Lipid panel [AGGREGATE] *Lipid Profile CC PCP [facility] Work Phone: Start: 08-14-2013 End: 09-06-2013 *Hepatic Function Panel *Hepatic Function Panel [facility] Work Phone: Start: 08-14-2013 End: 09-06-2013 Lipid panel [AGGREGATE] *Lipid Profile CC PCP [facility] Work Phone: Start: 03-10-2013 End: 03-10-2013 Arterial exam Arterial exam [facility] Work Phone: Start: 03-10-2013 End: 03-10-2013 Follow Up Appt 6 months Follow Up Appt 6 months [facility] Work Phone: Start: 03-10-2013 End: 03-10-2013 Nuclear stress test -exercise Nuclear stress test -exercise [facility] Work Phone: Start: 03-10-2013 End: 03-10-2013 PFM PFM [facility] Work Phone: Start: 02-13-2013 End: 02-21-2013 *Hepatic Function Panel *Hepatic Function Panel [facility] Work Phone: Start: 02-13-2013 End: 02-21-2013 Lipid panel [AGGREGATE] *Lipid Profile CC PCP [facility] Work Phone: Start: 09-09-2012 End: 09-09-2012 Follow Up Appt 6 months Follow Up Appt 6 months [facility] Work Phone: Start: 09-09-2012 End: 09-09-2012 MMM MMM [facility] Work Phone: Start: 08-31-2012 PNEUMOCOCCAL: 65+ (1 - PCV) PNEUMOCOCCAL: 65+ (1 - PCV) [facility] Start: 08-14-2012 End: 09-02-2012 *Hepatic Function Panel *Hepatic Function Panel [facility] Work Phone: Start: 08-14-2012 End: 09-02-2012 Lipid panel [AGGREGATE] *Lipid Profile [facility] Work Phone: Start: 03-01-2012 End: 03-01-2012 Echocardiography Echocardiogram (complete) [email or web address] Work Phone: Start: 03-01-2012 End: 03-01-2012 Electrocardiogram, complete EKG (In office) [facility] Work Phone: Start: 03-01-2012 End: 03-01-2012 Follow Up Appt 6 months Follow Up Appt 6 months [facility] Work Phone: Start: 03-01-2012 End: 03-01-2012 Nuclear stress test -exercise Nuclear stress test -exercise [facility] Work Phone: Start: 08-25-2011 End: 02-25-2012 *Hepatic Function Panel *Hepatic Function Panel [facility] Work Phone: Start: 08-25-2011 End: 08-25-2011 Electrocardiogram, complete EKG (In office) [facility] Work Phone: Start: 08-25-2011 End: 09-09-2012 Follow Up Appt 6 months Follow Up Appt 6 months [facility] Work Phone: Start: 08-25-2011 End: 02-25-2012 Lipid panel [AGGREGATE] *Lipid Profile [facility] Work Phone: Start: 02-26-2011 End: 02-25-2012 *Hepatic Function Panel *Hepatic Function Panel [facility] Work Phone: Start: 02-26-2011 End: 05-05-2011 Electrocardiogram, complete EKG (In office) [facility] Work Phone: Start: 02-26-2011 End: 05-05-2011 Follow Up Appt 6 months Follow Up Appt 6 months [facility] Work Phone: Start: 02-26-2011 End: 02-25-2012 Lipid panel [AGGREGATE] *Lipid Profile [facility] Work Phone: Start: 08-31-1997 SHINGRIX VACCINE (1 of 2) SHINGRIX VACCINE (1 of 2) [facility] Start: 08-31-1992 COLOGUARD (FIT-DNA) COLOGUARD (FIT-DNA) [facility] Start: 08-31-1992 Colonoscopy COLONOSCOPY [facility] Start: 08-31-1992 COLORECTAL CANCER SCREENING COLORECTAL CANCER SCREENING [facility] Start: 08-31-[address] COLONOGRAPHY [facility] Start: 08-31-1992 DIABETES SCREEN DIABETES SCREEN [facility] Start: 08-31-1992 FECAL OCCULT BLOOD FECAL OCCULT BLOOD [facility] Start: 08-31-1992 SIGMOIDOSCOPY SIGMOIDOSCOPY [facility] Start: 08-31-1982 LIPID SCREEN LIPID SCREEN [facility] Start: 08-31-1966 Urine microalbumin profile DTAP,TDAP,TD (1 - Tdap) [facility] Start: 08-31-1965 HEPATITIS C SCREENING HEPATITIS C SCREENING [facility] Start: 1945 ABDOMINAL AORTIC ANEURYSM SCREENING ABDOMINAL AORTIC ANEURYSM SCREENING [facility] Patient Education [facility] Work Phone: Payers Date Payer Category Payer Medicare [id number] 2015 Private Health Insurance HUMANA HUMANA MEDICARE SUPPLEMENT [id number] 2015-Present [phone] [address] [address] [place] [address] Indemnity [id number] 2012 Medicare MEDICARE MEDICAR E A AND B [id number] 2012-Present [phone] [address] [address] [place] [address] Medicare [id number] 2012 Medicare [id number] Social History Date Type Detail Facility Start: 07-13-2018 Tobacco smoking stat us MEIS Ex-smoker [facility] End: 06-14-1998 History of tobacco use Current smoker [facility] End: 06-14-1998 History of tobacco use Cigarette Smoker [facility] Start: 07-13-2018 Cigarettes smoked cu rrent (pack per day) - Reported 2 [facility] Start: 07-13-2018 Tobacco use and exposure Smoke less tobacco non-user [facility] Start: 08-08-2021 Alcohol intake Ex-drinker (finding) [facility] Start: 07-13-2018 Alcohol Comment recovering alcoholic [facility] Start: 1945 Sex Assigned At Not on file [facility] Note 06-26-2022 Telephone Encounter - Radha Dewayne - 06/26/2022 9:23 AM EDT Note Date & Type Note Facility 06-26-2022 Miscellaneous Notes Formattin g of this note might be different from the original. Called Pt to schedule annual testing/follow up - Pt said he had surgery in Oct 2021 w/ [facility] on his carotid artery and does not need to be seen. documented in this encounter [facility] Progress note 08-08-2021 Note Date & Type Note Facility 08-08-2021 Note HNO ID: [id number] Author: Arabella Lagunas MD Service: ? Author Type: Physician Type: Progress Notes Filed: 08/08/2021 11:25 AM Note Text: Sergio Clifford is a 75 year old male presents for initial evaluation of carotid disease. Pt is a prior pt of [facility]. He is on plavix, asa, and statin. He saw [facility] 01/2021: Patient seen today in follow-up of his CTA. He remains asymptomatic with regards to his carotid disease. The CTA shows about 60% stenosis or less on the right and about 70% stenosis on the left. At this point in time with these being asymptomatic we do not have an indication for treatment. The plan was to get a follow up CTA in 1 year. He apparently had a recent carotid US and is here to discuss results. Interestingly, he also has a telephone encounter where the patient was referred to Dr Dhruv Xavier at [facility] by Dr Fatoumata Koroma for occlusion and stenosis of B carotids and requested he be seen [facility]. Dr Xavier deferred mgmt to [place] as he was already established here and pt did not want to come to [place]. Pt had a recent US on 07/05/21 that is scanned into the computer but is rather difficult to read due to the poor scan quality. I believe it says there is a >70% R and L ICA stenosis. His prior US showed a PSV of 222 cm/s on the R and of 384 cm/s on the L in 2020. I cannot read the scanned document well enough to determine the velocities on this new scan. The pt has yet to have his hernia surgery. His surgeon wanted the results back from the US first. I would give the pt the same clearance as CAMPOS did in his note form 01/24/21. I would also recommend not letting his BP drop too low. Since he was supposed to get a CTA in 2 months anyway, given his new US, will go ahead and repeat this. Depending on the results, If he is over 80% stenosis, he may meet indication for surgery. He remains asymptomatic. SYMPTOMS: no notable symptoms We reviewed the symptoms of TIA/stroke including weakness or numbness in an extremity, slurred speech, facial droop, amaurosis fugax, and the pt denies any symptoms. The pt understands that he/she should call or go to the ED should any of these symptoms develop and that delay could result in stroke. He complains of occasional headache or dizziness, which we discussed are unrelated to carotid disease. We had an extensive discussion about carotid stenosis, risk factors, rationale for treatment and types of treatment including medical mgmt, carotid stent and carotid endarterectomy. Patient does not have a history of a CVA. Patient has not had previous carotid surgery HISTORIES: PAST MEDICAL HISTORY Diagnosis Date - Acute myocardial infarction of lateral wall (HCC) 03/2010 Myocardial Infarction - Bilateral carotid artery stenosis - Brain tumor (HCC) age 16 S/P Removal of Brain Tumor - CAD (coronary artery disease) S/P multiple Coronary Stents - Carotid artery stenosis - Cataracts, bilateral - COPD with emphysema (HCC) - Former smoker - GERD (gastroesophageal reflux disease) - Hemorrhoids - Hiatal hernia - Hyperlipidemia - Hypertension - Ingrown nail of great toe of left foot [facility] - Ingrown nail of great toe of right foot having [facility] in July/2018 - Inguinal hernia, left S/P Hernia Repair - Left carotid bruit - 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; S/P Excision x2 PAST SURGICAL HISTORY Procedure Laterality Date - COLONOSCOPY AND POLYPECTOMY 2016 - INGUINAL HERNIA REPAIR HX Left w/Mesh - PAST SURGICAL HISTORY OF age 16 Brain surgery (removal of tumor behind mastoid bone) - PAST SURGICAL HISTORY OF Left Left Knee surgery (cartilage) - PAST SURGICAL HISTORY OF Left Excision of skin cancer (BCC) x2 - PAST SURGICAL HISTORY OF Bilateral Extraction of B/L Cataracts - STENT - CORONARY MULTIPLE - TONSILLECTOMY HX Social History Tobacco Use - Smoking status: Former Smoker Packs/day: 2.00 Years: 30.00 Pack years: 60.00 Types: Cigarettes Quit date: 06/14/1998 Years since quittin.1 - Smokeless tobacco: Never Used Vaping Use - Vaping Use: Never used Substance Use Topics - Alcohol use: Not Currently Comment: recovering alcoholic - Drug use: Never MEDICATIONS: Current Outpatient Medications Medication Sig - tiotropium bromide (SPIRIVA RESPIMAT INHALATION) Inhale as instructed once daily. - omega-3s/dha/epa/fish oil/D3 (VITAMIN-D + OMEGA-3 ORAL) Take 3 tablets by mouth once daily. - allopurinol (ZYLOPRIM) 300 mg tablet allopurinol ALLOPURINOL 300 MG TABS One tablet by mouth daily ALLOPURINOL [id number] Shazia Perez RN 06-13-2010 [facility] ([id number]) - lisinopril (ZESTRIL, PRINIVIL) 20 mg tablet Take 20 mg by mouth once daily. - atorvastatin (LIPITOR) 40 mg tablet Take 40 mg by mouth once daily. - aspirin, enteric coated (ASPIRIN, ENTERIC COATED) 325 mg EC tablet aspirin ECOTRIN 325 MG TBEC One tablet by mouth da (more content not included)... [facility] Progress note 11-06-2020 Note Date & Type Note Facility 11-06-2020 Note HNO ID: [id number] Author: Rodrick Carter Service: ? Author Type: Motor Block Mechanic Type: Progress Notes Filed: 11/06/2020 3:39 PM Note Text: Radiology Service Progress Note DATE OF SERVICE: November 06, 2020 TIME: 3:39 PM PATIENT IDENTITY VERIFICATION COMPLETED USING TWO (2) STANDARD IDENTIFIERS: Name and Date of confirmed by patient verbally. FALL SCREENING: Has the patient had 2 falls in the last year or 1 fall with injury or currently using an Ambulatory Assistive Device (Walker, Cane, Wheelchair, Crutches, etc.)? No PATIENT GENDER DATA: Male PATIENT RELEVANT IMPLANT DATA REVIEWED: Yes ALLERGIES: Reviewed and unchanged CONTRAST ALLERGY: NO. EXAM: CT -CONTRAST INDUCED NEPHROPATHY RISK FACTORS: Patient age > 60 years CREATININE: Creatinine Date Value Ref Range Status 11/06/2020 0.77 0.73 - 1.22 mg/dL Final eGFR-All Other Races Date Value Ref Range Status 11/06/2020 >60 . Final Comment: eGFR (Estimated GFR) Units of measure: mL/min/1.73 meters squared eGFR is derived from the reexpressed MDRD Study equation using the following parameters: serum creatinine, age, gender and race. The creatinine assay has been calibrated to be traceable to IDMS. An eGFR <60 mL/min/1.73m2 for >3 months is consistent with chronic kidney disease. Refer to KDOQI guidelines for clinical interpretation. In patients with unstable renal function, e.g. those with acute kidney injury, the eGFR may not accurately reflect actual GFR. eGFR- Date Value Ref Range Status 11/06/2020 >60 Final P.O.C.T. RESULTS: POC done: Yes, See Lab Tab November 06, 2020 TREATMENT: N/A PERIPHERAL IV DATA: Ambulatory: A peripheral IV was started in the Left antecubital site with a Angio cath: 18 gauge. RADIOLOGY DEPARTMENT: CT; Exam(s) Completed: CTA Neck SIGNATURE: Rodrick Lui PATIENT NAME: Sergio Clifford DATE: November 06, 2020 TIME: 3:39 PM [facility] Summary Purpose Family History No Family History Records FoundNo Family History Records Found Advance Directives No Advanced Directives Records FoundNo Advanced Directives Records Found Additional Source Comments (unrecognized sect ion and content) No Status Records FoundNo Status Records Found INFORMATION SOURCE (unrecogn ized section and content) DATE CREATED AUTHOR AUTHOR'S ORGANIZ ATION 06/30/2022 [facility] Source Comments (unrecognize d section and content) In the event this informatio n is protected by the Federal Confidentiality of Alcohol and Drug Abuse Patient Records regulations: The Federal rules restrict any use of the information to criminally investigate or prosecute any alcohol or drug abuse patient.[facility] the event this information is protected by the Federal Confidentiality of Alcohol and Drug Abuse Patient Records regulations: The Federal rules restrict any use of the information to criminally investigate or prosecute any alcohol or drug abuse patient.[facility] Reason for Visit (unrecogniz ed section and content) Reason Comments Appointment Appointment Care Teams (unrecognized sec tion and content) Head Charrer Relationship Specialty Start Date End Date Santosh Maher DO [address] [place] [address] PCP - General Family Medicine 01/24/21 Kashmir Bruno MD [address] [place] [address] Referring General Surgery 06/21/18 Santosh Maher DO [address] [place] [address] Family Medicine 10/28/19 Tyson Leroy [address] [facility] [place] [address] Cardiology 10/28/19 Santosh Maher DO [address] [place] [address] Family Medicine 11/01/20 Fatoumata Pimentel(Historical)MD [address] [place] [address] Referring Endocrinology 07/18/21 fatoumata pimentel [place] Physician General Surgery 01/22/21 FOR RECORDS PERTAINING TO PATIENTS WHO ARE OR HAVE BEEN ENROLLED IN A CHEMICAL DEPENDENCY/SUBSTANCEABUSE PROGRAM, SOME INFORMATION MAY BE OMITTED. This clinical summary was aggregated from multiple sources. Caution should be exercised in using it in the provision of clinical care. This summary normalizes information from multiple sources, and as a consequence, information in this document may materially change the coding, format and clinical context of patient data. In addition, data may be omitted in some cases. CLINICAL DECISIONS SHOULD BE BASED ON THE PRIMARY CLINICAL RECORDS. [facility]. provides no warranty or guarantee of the accuracy or completeness of information in this document.
== END | disposition home or self-care (01) ==
LOC: LABSPEC 16:07
PROVIDERS: PCP Family Medicine; Referring Provider Urology; Visit Provider Urology
DX: R97.20 Elevated prostate specific antigen [PSA] (principal)
CPT/HCPCS: 88305; G0416

== ENCOUNTER → 2023-03-26 | Outpatient (CLI) | payer MEDICARE, OTHER, SELFPAY ==
[2022-07-02 06:43] VITALS: BMI 26.4
--- OUTSIDE RECORDS SUMMARY | 2023-03-26 10:40 | XMS RPT_ITS | CCD ---
Author Name Unknown Address [address] [place] [address] Organization [facility] Care Team Providers Care Mobile Sales Technician Name Role Phone Davin KAMINSKI, Jelly Montoya Unavailable [phone] Tyson Leroy MD Unavailable Carla Perdomo Unavailable Kashmir Bruno MD Unavailable [phone] Santosh Maher DO Unavailable Tyson Leroy Unavailable Santosh Maher DO Unavailable Santosh Maher DO Primary Care Provider Fatoumata Pimentel MD(Historical) Unavailable Un available ARABELLA LAGUNAS Attending Unavailable SANTOSH MAHER Referring Unavailable SNATOSH MAHER Primary Care Unavailable Allergies Allergy Classification Reported Allergen(s) Allergy Type Date of Onset Reaction(s) Facility (3 sources) Bee pollen; Translations: [BEE POLLEN] Drug Allergy 07-12-2018 Mental Status Change [facility] Medications Completed/Discontinued Medications Medication Drug Class(es) Dates Sig (Normalized) Sig (Original) [id number] 200 actuat albuterol 0.09 mg/actuat metered dose [...] 03-21-2015 Episodic Other aftercare (3 sources) Other group home (current) drug therapy; Translations: [Other group home (current) drug therapy] Onset: 06-13-2010 06-13-2010 Episodic [...] Start: 06-26-2022 Telephone encounter 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 Phone: [facility] [...] Start: 11-14-2022 Influenza vaccination INFLUENZA (Season Ended) [facility] Start: 03-16-2022 ADVANCE DIRECTIVE DISCUSSION ADVANCE DIRECTIVE DISCUSSION [facility] Start: 03-16-2022 DEPRESSION ASSESSMENT DEPRESSION ASSESSMENT [facility] Start: 06-12-2021 COVID-19 VACCINE (4 - Booster for Moderna series) COVID-19 VACCINE (4 - Booster for Moderna series) [facility] Start: 07-20-2017 End: 07-20-2017 Appointment Appointment [facility] Work Phone: Start: 11-20-2016 End: 11-20-2016 Follow Up Appt 6 months Follow Up Appt 6 months [facility] Work Phone: Start: 11-20-2016 End: 11-20-2016 Nuclear stress test -Lexiscan Nuclear stress test -Lexiscan [facility] Work Phone: Start: 11-20-2016 End: 11-20-2016 PFM PFM [facility] Work Phone: Start: 05-19-2016 End: 05-19-2016 Follow Up Appt 6 months Follow Up Appt 6 months [facility] Work Phone: Start: 05-19-2016 End: 05-19-2016 MMM MMM [facility] Work Phone: Start: 03-05-2016 End: 11-11-2016 *Hepatic Function Panel *Hepatic Function Panel [facility] Work Phone: Start: 03-05-2016 End: 11-11-2016 Lipid panel [AGGREGATE] *Lipid Profile CC PCP [facility] Work Phone: Start: 09-19-2015 End: [...] Phone: Start: 03-21-2015 End: 03-21-2015 MMM MMM [facility] Work Phone: Start: 03-21-2015 End: 03-21-2015 Nuclear stress test -exercise Nuclear stress test -exercise [facility] Work Phone: Start: 03-08-2015 End: 09-05-2015 *Hepatic Function Panel *Hepatic Function Panel [facility] Work Phone: Start: 03-08-2015 End: 09-05-2015 Lipid panel [AGGREGATE] *Lipid Profile CC PCP [facility] Work Phone: Start: 09-18-2014 End: 09-18-2014 Follow Up Appt 6 months Follow Up Appt 6 months [facility] Work Phone: Start: 09-18-2014 End: 09-18-2014 PFM PFM [facility] Work Phone: Start: 09-13-2014 End: 09-06-2014 *Hepatic Function Panel *Hepatic Function Panel [facility] Work Phone: Start: 09-13-2014 End: 09-06-2014 Lipid panel [AGGREGATE] *Lipid Profile CC PCP [facility] Work Phone: Start: 03-22-2014 End: 03-22-2014 Follow Up Appt 6 months Follow Up Appt 6 months [facility] Work Phone: Start: 03-22-2014 End: 03-22-2014 MMM MMM [facility] Work Phone: Start: 02-13-2014 End: 03-13-2014 *Hepatic Function Panel *Hepatic Function Panel [facility] Work Phone: Start: 02-13-2014 End: 03-13-2014 Lipid panel [AGGREGATE] *Lipid Profile CC PCP [facility] Work Phone: Start: 09-14-2013 End: 09-04-2015 Vascular Surgery Vascular Surgery Evan Delatorre MD, [address], [address], [address] [facility] Work Phone: Start: 09-12-2013 End: 03-13-2014 *Hepatic Function Panel *Hepatic Function Panel [facility] Work Phone: Start: 09-12-2013 End: 09-12-2013 Follow Up Appt 6 months Follow Up Appt 6 months [facility] Work Phone: Start: 09-12-2013 End: 03-13-2014 Lipid panel [AGGREGATE] *Lipid Profile CC PCP [facility] Work Phone: Start: 08-14-2013 End: 09-06-2013 *Hepatic Function Panel *Hepatic Function Panel [facility] Work Phone: Start: 08-14-2013 End: 09-06-2013 Lipid panel [AGGREGATE] *Lipid Profile CC PCP [facility] Work Phone: Start: 03-10-2013 End: 03-10-2013 Arterial exam Arterial exam [facility] Work Phone: Start: 03-10-2013 End: 03-10-2013 Follow Up Appt 6 months Follow Up Appt 6 months [facility] Work Phone: Start: 03-10-2013 End: 03-10-2013 Nuclear stress test -exercise Nuclear stress test -exercise [facility] Work Phone: Start: 03-10-2013 End: 03-10-2013 PFM PFM [facility] Work Phone: Start: 02-13-2013 End: 02-21-2013 *Hepatic Function Panel *Hepatic Function Panel [employer] [facility] Work Phone: Start: 02-13-2013 End: 02-21-2013 Lipid panel [AGGREGATE] *Lipid Profile CC PCP [place] [facility] Work Phone: Start: 09-09-2012 End: 09-09-2012 Follow Up Appt 6 months Follow Up Appt 6 months [place] [employer] [facility] Work Phone: Start: 09-09-2012 End: 09-09-2012 MMM MMM [facility] Work Phone: Start: 08-31-2012 PNEUMOCOCCAL: 65+ (1 - PCV) PNEUMOCOCCAL: 65+ (1 - PCV) [facility] Start: 08-14-2012 End: 09-02-2012 *Hepatic Function Panel *Hepatic Function Panel [facility] Work Phone: Start: 08-14-2012 End: 09-02-2012 Lipid panel [AGGREGATE] *Lipid Profile [place] [employer] [facility] Work Phone: Start: 03-01-2012 End: 03-01-2012 Echocardiography Echocardiogram (complete) [employer] Work Phone: Start: 03-01-2012 End: 03-01-2012 Electrocardiogram, complete EKG (In office) [place] [facility] Work Phone: Start: 03-01-2012 End: 03-01-2012 Follow Up Appt 6 months Follow Up Appt 6 months [place] [facility] Work Phone: Start: 03-01-2012 End: 03-01-2012 Nuclear stress test -exercise Nuclear stress test -exercise [place] [facility] Work Phone: Start: 08-25-2011 End: 02-25-2012 *Hepatic Function Panel *Hepatic Function Panel [place] [facility] Work Phone: Start: 08-25-2011 End: 08-25-2011 Electrocardiogram, complete EKG (In office) [place] [facility] Work Phone: Start: 08-25-2011 End: 09-09-2012 Follow Up Appt 6 months Follow Up Appt 6 months [place] [facility] Work Phone: Start: 08-25-2011 End: 02-25-2012 Lipid panel [AGGREGATE] *Lipid Profile [place] [employer] Work Phone: Start: 02-26-2011 End: 02-25-2012 *Hepatic Function Panel *Hepatic Function Panel [place] [facility] Work Phone: Start: 02-26-2011 End: 05-05-2011 Electrocardiogram, complete EKG (In office) [place] [facility] [employer] Work Phone: Start: 02-26-2011 End: 05-05-2011 Follow Up Appt 6 months Follow Up Appt 6 months [place] [facility] Work Phone: Start: 02-26-2011 End: 02-25-2012 Lipid panel [AGGREGATE] *Lipid Profile [place] [facility] Work Phone: Start: 08-31-1997 SHINGRIX VACCINE (1 of 2) SHINGRIX VACCINE (1 of 2) [facility] Start: 08-31-1992 COLOGUARD (FIT-DNA) COLOGUARD (FIT-DNA) [facility] Start: 08-31-1992 Colonoscopy COLONOSCOPY [facility] Start: 08-31-1992 COLORECTAL CANCER SCREENING COLORECTAL CANCER SCREENING [facility] Start: 08-31-[address] COLONOGRAPHY [facility] Start: 08-31-1992 DIABETES SCREEN DIABETES SCREEN [facility] Start: 08-31-1992 FECAL OCCULT BLOOD FECAL OCCULT BLOOD [facility] Start: 08-31-1992 SIGMOIDOSCOPY SIGMOIDOSCOPY [facility] Start: 08-31-1982 LIPID SCREEN LIPID SCREEN [facility] Start: 08-31-1966 Urine microalbumin profile DTAP,TDAP,TD (1 - Tdap) [facility] Start: 08-31-1965 HEPATITIS C SCREENING HEPATITIS C SCREENING [facility] Start: 1945 ABDOMINAL AORTIC ANEURYSM SCREENING ABDOMINAL AORTIC ANEURYSM SCREENING [facility] Patient Education [place] [employer] Work Phone: Payers Date Payer Category Payer Medicare [id number] 2015 Private Health Insurance HUMANA HUMANA MEDICARE SUPPLEMENT [id number] 2015-Present [phone] [address] [address] [place] [address] Indemnity [id number] 2012 Medicare MEDICARE MEDICAR E A AND B [id number] 2012-Present [phone] [address] [address] [place] [address] Medicare [id number] 2012 Medicare [id number] Social History Date Type Detail Facility Start: 07-13-2018 Tobacco smoking stat us IAIS Ex-smoker [facility] End: 06-14-1998 History of tobacco use Current smoker [facility] End: 06-14-1998 History of tobacco use Cigarette Smoker [facility] Start: 07-13-2018 Cigarettes smoked cu rrent (pack per day) - Reported 2 [facility] Start: 07-13-2018 Tobacco use and exposure Smoke less tobacco non-user [facility] Start: 08-08-2021 Alcohol intake Ex-drinker (finding) [facility] Start: 07-13-2018 Alcohol Comment recovering alcoholic [facility] Start: 1945 Sex Assigned At Not on file [facility] Note 06-26-2022 Telephone Encounter - Radha Dewayne - 06/26/2022 9:23 AM EDT Note Date & Type Note Facility 06-26-2022 Miscellaneous Notes Formattin g of this note might be different from the original. Called Pt to schedule annual testing/follow up - Pt said he had surgery in Oct 2021 w/ [facility] on his carotid artery and does not need to be seen. documented in this encounter [facility] Progress note 08-08-2021 Note Date & Type Note Facility 08-08-2021 Note HNO ID: [id number] Author: Arabella Lagunas MD Service: ? Author Type: Physician Type: Progress Notes Filed: 08/08/2021 11:25 AM Note Text: Sergio Clifford is a 75 year old male presents for initial evaluation of carotid disease. Pt is a prior pt of [facility]. He is on plavix, asa, and statin. He saw [facility] 01/2021: Patient seen today in follow-up of [...] was referred to Dr Dhruv Xavier at [facility] by Dr Fatoumata Koroma for occlusion and stenosis of B carotids and requested he be seen [facility]. Dr Xavier deferred mgmt to [place] as he was already established here and pt did not want to come to [place]. Pt had a recent US on 07/05/21 [...] TABS One tablet by mouth daily ALLOPURINOL [id number] Shazia Perez RN 06-13-2010 [facility] ([id number]) - lisinopril (ZESTRIL, PRINIVIL) 20 mg tablet Take 20 mg by mouth once daily. - atorvastatin (LIPITOR) 40 mg tablet Take 40 mg by mouth once daily. - aspirin, enteric coated (ASPIRIN, ENTERIC COATED) 325 mg EC tablet aspirin ECOTRIN 325 MG TBEC One tablet by mouth da (more content not included)... [facility] Progress note 11-06-2020 Note Date & Type Note Facility 11-06-2020 Note HNO ID: [id number] Author: Rodrick Carter Service: ? Author Type: Bilingual Student Tutor Type: Progress Notes Filed: 11/06/2020 3:39 PM [...] DATE: November 06, 2020 TIME: 3:39 PM [facility] Summary Purpose Family History No Family History Records FoundNo Family History Records Found Advance Directives No Advanced Directives Records FoundNo Advanced Directives Records Found Additional Source Comments (unrecognized sect ion and content) No Status Records FoundNo Status Records Found INFORMATION SOURCE (unrecogn ized section and content) DATE CREATED AUTHOR AUTHOR'S ORGANIZ ATION 06/30/2022 [facility] Source Comments (unrecognize d section and content) In the event this informatio n is protected by the Federal Confidentiality of Alcohol and Drug Abuse Patient Records regulations: The Federal rules restrict any use of the information to criminally investigate or prosecute any alcohol or drug abuse patient.[facility] the event this information is protected by the Federal Confidentiality of Alcohol and Drug Abuse Patient Records regulations: The Federal rules restrict any use of the information to criminally investigate or prosecute any alcohol or drug abuse patient.[facility] Reason for Visit (unrecogniz ed section and content) Reason Comments Appointment Appointment Care Teams (unrecognized sec tion and content) Mobile Sales Technician Relationship Specialty Start Date End Date Santosh Maher DO [address] [place] [address] PCP - General Family Medicine 01/24/21 Kashmir Bruno MD [address] [place] [address] Referring General Surgery 06/21/18 Santosh Maher DO [address] [place] [address] Family Medicine 10/28/19 Tyson Leroy [address] [facility] [place] [address] Cardiology 10/28/19 Santosh Maher DO [address] [place] [address] Family Medicine 11/01/20 Fatoumata Pimentel(Historical)MD [address] [place] [address] Referring Endocrinology 07/18/21 fatoumata pimentel [place] Physician [...] BE BASED ON THE PRIMARY CLINICAL RECORDS. [facility]. provides no warranty or guarantee of the accuracy or completeness of information in this document.
[2023-03-26 11:21] LABS: AST(SGOT) 18 U/L (15-37); Alanine Aminotransfer ALT/SGPT 31 U/L (16-61); CPK Total, Creatine Kinase 92 U/L (39-308); Cholesterol 109 mg/dL (200); High Density Lipoprotein 33 mg/dL; Thyroid Stim Hormone (TSH) 2.22 uIU/mL (0.358-3.74); Triglycerides 119 mg/dL; Very Low Density Lipoprotein 24 mg/dL (5-40)
== END | disposition home or self-care (01) ==
LOC: LAB 09:47
PROVIDERS: PCP Family Medicine; Referring Provider Internal Medicine Cardiovascular Disease; Visit Provider Internal Medicine Cardiovascular Disease
DX: E78.5 Hyperlipidemia, unspecified (principal); I77.9 Disorder of arteries and arterioles, unspecified; I48.0 Paroxysmal atrial fibrillation; I25.10 Atherosclerotic heart disease of native coronary artery without angina pectoris
CPT/HCPCS: 36415; 80061; 82550; 84443; 84450; 84460

== ENCOUNTER → 2023-03-26 | Outpatient (CLI) | payer MEDICARE, OTHER, SELFPAY ==
[2022-07-02 06:43] VITALS: BMI 26.4
--- NOTE | 2023-03-27 12:22 | PFT ---
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 Respiratory therapy reported good patient effort. Bronchodilators were used during testing. INTERPRETATION: Forced expiration spirometry demonstrates the presence of a mild large airways obstructive ventilatory defect. There was no significant response to aerosolized bronchodilators. Spirograms are of good quality and plateau gradually indicating slow emptying of the lungs. Body plethysmography was performed and revealed lung volumes to be within normal limits. Diffusing capacity by single breath CO was reduced to 46% of predicted. IMPRESSION: Irreversible mild large airways obstructive ventilatory defect with preserved lung volumes and disproportionate reduction in diffusing capacity.
== END | disposition home or self-care (01) ==
LOC: PSN 09:58
PROVIDERS: PCP Family Medicine; Referring Provider Internal Medicine Cardiovascular Disease; Visit Provider Internal Medicine Cardiovascular Disease
DX: I48.0 Paroxysmal atrial fibrillation (principal); J44.9 Chronic obstructive pulmonary disease, unspecified
CPT/HCPCS: 94060; 94726; 94729

== ENCOUNTER → 2023-04-17 | Outpatient (CLI) | payer MEDICARE, OTHER, SELFPAY ==
[2022-07-02 06:43] VITALS: BMI 26.4
--- NOTE | 2023-04-17 13:39 | CDU_ITS ---
Reason For Study: S/P Lt CEA Rt. Velocities/BP Lt. Velocities/BP Prox CCA 84.0/13.2 cm/sec. Dist CCA 198.5/37.7 cm/sec. Mid CCA 105.1/19.5 cm/sec. Mid CCA 257.4/53.4 cm/sec. Dist CCA 113.9/26.1 cm/sec. Prox CCA 139.6/32.0 cm/sec. Prox ICA 120.5/19.5 cm/sec. Dist ICA 87.9/29.0 cm/sec. Mid ICA 300.3/68.9 cm/sec. Mid ICA 101.4/30.2 cm/sec. Dist ICA 127.7/18.1 cm/sec. Prox ICA 78.1/20.4 cm/sec. Rt. ICA/CCA = 2.9. Lt. ICA/CCA = 0.40. Prox ECA 135.9/8.6 cm/sec. Prox ECA 128.6/18.9 cm/sec. Rt. Vert. 81.5/19.2 cm/sec. Lt. Vert. 75.4/12.7 cm/sec. Right Extracranial There is intimal thickening but no significant atherosclerotic plaque noted in the right common carotid artery. There is heterogeneous, irregular atherosclerotic plaque noted in the right internal carotid artery. The atherosclerotic plaque causes acoustic shadowing. There is heterogeneous, irregular atherosclerotic plaque noted in the right external carotid artery. Antegrade flow is noted in the right vertebral artery. Left Extracranial There is heterogeneous, irregular atherosclerotic plaque noted in the left common carotid artery. HX Lt CEA. There is heterogeneous, irregular atherosclerotic plaque noted in the left internal carotid artery. There is heterogeneous, irregular atherosclerotic plaque noted in the left external carotid artery. Antegrade flow is noted in the left vertebral artery. VL/Carotid Duplex Ultrasound Interpretation Summary Severe (>70%) stenosis right extracranial internal carotid. Mild (<50%) stenosis left extracranial internal carotid. Patent and antegrade vertebrals bilaterally. Ordering Physician: Kayla Bar Referring Physician: Neo Maher M.D. Performed By: Willis Andrea RVT
== END | disposition home or self-care (01) ==
LOC: CVS 13:38
PROVIDERS: PCP Family Medicine; Referring Provider Physician Assistant; Visit Provider Physician Assistant
DX: I65.23 Occlusion and stenosis of bilateral carotid arteries (principal); I77.9 Disorder of arteries and arterioles, unspecified; Z98.890 Other specified postprocedural states
CPT/HCPCS: 93880

== ENCOUNTER 2023-05-20 07:47 | Day surgery (SDC) | payer MEDICARE, OTHER, SELFPAY ==
[2022-07-02 06:43] VITALS: BMI 26.4
[2023-05-20] VITALS (9 sets, daily range): BP systolic 114–133; BP diastolic 48–65; PULSE 61–75; RESP 16–18; TEMP 36.9–37.3; O2SAT 90–95; BMI 27.4
--- OUTSIDE RECORDS SUMMARY | 2023-05-20 08:13 | XMS RPT_ITS | CCD ---
Author Name Unknown Address [address] [place] [address] Organization [facility] Care Team Providers Care Credit Collections Analyst Name Role Phone Davin KAMINSKI, Jelly Montoya Unavailable Tyson Leroy MD Unavailable [phone] Carla Perdomo Unavailable Kashmir Bruno MD Unavailable [phone] Santosh Maher DO Unavailable [phone] Tyson Leroy Unavailable Santosh Maher DO Unavailable Santosh Maher DO Primary Care Provider Fatoumata Pimentel MD(Historical) Unavailable Un available ARABELLA LAGUNAS Attending Unavailable SANTOSH MAHER Referring Unavailable SANTOSH AMHER Primary Care Unavailable Allergies Allergy Classification Reported Allergen(s) Allergy Type Date of Onset Reaction(s) Facility (3 sources) Bee pollen; Translations: [BEE POLLEN] Drug Allergy 07-12-2018 Mental Status Change [facility] Medications Completed/Discontinued Medications Medication Drug Class(es) Dates Sig (Normalized) Sig (Original) [id number] 200 actuat albuterol 0.09 mg/actuat metered dose [...] 03-21-2015 Episodic Other aftercare (3 sources) Other retirement (current) drug therapy; Translations: [Other ferry terminal supervisor (current) drug therapy] Onset: 06-13-2010 06-13-2010 Episodic [...] Start: 06-26-2022 Telephone encounter Karla Esau tthews CHIROPRACTIC PRACTICE MANAGER.VERTICAL BORER Work Phone: [facility] [...] Start: 11-14-2022 Influenza vaccination INFLUENZA (Season Ended) [facility] Start: 03-16-2022 ADVANCE DIRECTIVE DISCUSSION ADVANCE DIRECTIVE DISCUSSION [facility] Start: 03-16-2022 DEPRESSION ASSESSMENT DEPRESSION ASSESSMENT [facility] Start: 06-12-2021 COVID-19 VACCINE (4 - Booster for Moderna series) COVID-19 VACCINE (4 - Booster for Moderna series) [facility] Start: 07-20-2017 End: 07-20-2017 Appointment Appointment [facility] Work Phone: Start: 11-20-2016 End: 11-20-2016 Follow Up Appt 6 months Follow Up Appt 6 months [facility] Work Phone: Start: 11-20-2016 End: 11-20-2016 Nuclear stress test -Lexiscan Nuclear stress test -Lexiscan [facility] Work Phone: Start: 11-20-2016 End: 11-20-2016 PFM PFM [facility] Work Phone: Start: 05-19-2016 End: 05-19-2016 Follow Up Appt 6 months Follow Up Appt 6 months [facility] Work Phone: Start: 05-19-2016 End: 05-19-2016 MMM MMM [facility] Work Phone: Start: 03-05-2016 End: 11-11-2016 *Hepatic Function Panel *Hepatic Function Panel [facility] Work Phone: Start: 03-05-2016 End: 11-11-2016 Lipid panel [AGGREGATE] *Lipid Profile CC PCP [facility] Work Phone: Start: 09-19-2015 End: 09-19-2015 Follow Up Appt 6 months Follow Up Appt 6 months [facility] Work Phone: Start: 09-19-2015 End: 09-19-2015 PFM PFM [facility] Work Phone: Start: 03-21-2015 End: 09-04-2015 Electrocardiogram, complete EKG (In office) [facility] Work Phone: Start: 03-21-2015 [...] Phone: Start: 09-18-2014 End: 09-18-2014 PFM PFM [facility] Work Phone: Start: 09-13-2014 End: 09-06-2014 *Hepatic Function Panel *Hepatic Function Panel [facility] Work Phone: Start: 09-13-2014 End: 09-06-2014 Lipid panel [AGGREGATE] *Lipid Profile CC PCP [facility] Work Phone: Start: 03-22-2014 End: 03-22-2014 Follow Up Appt 6 months Follow Up Appt 6 months [facility] Work Phone: Start: 03-22-2014 End: 03-22-2014 MMM MMM [facility] Work Phone: Start: 02-13-2014 End: 03-13-2014 *Hepatic Function Panel *Hepatic Function Panel [facility] Work Phone: Start: 02-13-2014 End: 03-13-2014 Lipid panel [AGGREGATE] *Lipid Profile CC PCP [facility] Work Phone: Start: 09-14-2013 End: 09-04-2015 Vascular Surgery Vascular Surgery Evan Delatorre MD, [address], [address], [address] [facility] Work Phone: Start: 09-12-2013 End: 03-13-2014 *Hepatic Function Panel *Hepatic Function Panel [facility] Work Phone: Start: 09-12-2013 End: 09-12-2013 Follow Up Appt 6 months Follow Up Appt 6 months [facility] Work Phone: Start: 09-12-2013 End: 03-13-2014 Lipid panel [AGGREGATE] *Lipid Profile CC PCP [facility] Work Phone: Start: 08-14-2013 End: 09-06-2013 *Hepatic Function Panel *Hepatic Function Panel [facility] Work Phone: Start: 08-14-2013 End: 09-06-2013 Lipid panel [AGGREGATE] *Lipid Profile CC PCP [facility] Work Phone: Start: 03-10-2013 End: 03-10-2013 Arterial exam Arterial exam [facility] [employer] Work Phone: Start: 03-10-2013 End: 03-10-2013 Follow Up Appt 6 months Follow Up Appt 6 months [facility] Work Phone: Start: 03-10-2013 End: 03-10-2013 Nuclear stress test -exercise Nuclear stress test -exercise [facility] [employer] Work Phone: Start: 03-10-2013 End: 03-10-2013 PFM PFM [facility] [facility] [employer] Work Phone: Start: 02-13-2013 End: 02-21-2013 *Hepatic Function Panel *Hepatic Function Panel [employer] [facility] [employer] [facility] Work Phone: Start: 02-13-2013 End: 02-21-2013 Lipid panel [AGGREGATE] *Lipid Profile CC PCP [facility] [employer] Work Phone: Start: 09-09-2012 End: 09-09-2012 Follow Up Appt 6 months Follow Up Appt 6 months [place] [employer] [facility] [employer] Work Phone: Start: 09-09-2012 End: 09-09-2012 MMM MMM [facility] Work Phone: Start: 08-31-2012 PNEUMOCOCCAL: 65+ (1 - PCV) PNEUMOCOCCAL: 65+ (1 - PCV) [facility] Start: 08-14-2012 End: 09-02-2012 *Hepatic Function Panel *Hepatic Function Panel [facility] Work Phone: Start: 08-14-2012 End: 09-02-2012 Lipid panel [AGGREGATE] *Lipid Profile [facility] [facility] Work Phone: Start: 03-01-2012 End: 03-01-2012 Echocardiography Echocardiogram (complete) [employer] Work Phone: Start: 03-01-2012 End: 03-01-2012 Electrocardiogram, complete EKG (In office) [facility] [employer] Work Phone: Start: 03-01-2012 End: 03-01-2012 Follow Up Appt 6 months Follow Up Appt 6 months [facility] [employer] Work Phone: Start: 03-01-2012 End: 03-01-2012 Nuclear stress test -exercise Nuclear stress test -exercise [facility] [employer] Work Phone: Start: 08-25-2011 End: 02-25-2012 *Hepatic Function Panel *Hepatic Function Panel [facility] [employer] Work Phone: Start: 08-25-2011 End: 08-25-2011 Electrocardiogram, complete EKG (In office) [facility] [employer] Work Phone: Start: 08-25-2011 End: 09-09-2012 Follow Up Appt 6 months Follow Up Appt 6 months [facility] [employer] Work Phone: Start: 08-25-2011 End: 02-25-2012 Lipid panel [AGGREGATE] *Lipid Profile [facility] [employer] Work Phone: Start: 02-26-2011 End: 02-25-2012 *Hepatic Function Panel *Hepatic Function Panel [facility] [employer] Work Phone: Start: 02-26-2011 End: 05-05-2011 Electrocardiogram, complete EKG (In office) [facility] [employer] Work Phone: Start: 02-26-2011 End: 05-05-2011 Follow Up Appt 6 months Follow Up Appt 6 months [facility] [employer] Work Phone: Start: 02-26-2011 End: 02-25-2012 Lipid panel [AGGREGATE] *Lipid Profile [facility] Work Phone: Start: 08-31-1997 SHINGRIX VACCINE (1 of 2) SHINGRIX VACCINE (1 of 2) [facility] Start: 08-31-1992 COLOGUARD (FIT-DNA) COLOGUARD (FIT-DNA) [facility] Start: 08-31-1992 Colonoscopy COLONOSCOPY [facility] Start: 08-31-1992 COLORECTAL CANCER SCREENING COLORECTAL CANCER SCREENING [facility] Start: 08-31-[address] COLONOGRAPHY [facility] Start: 08-31-1992 DIABETES SCREEN DIABETES SCREEN [facility] Start: 08-31-1992 FECAL OCCULT BLOOD FECAL OCCULT BLOOD [facility] Start: 08-31-1992 SIGMOIDOSCOPY SIGMOIDOSCOPY [facility] Start: 08-31-1982 LIPID SCREEN LIPID SCREEN [facility] Start: 08-31-1966 Urine microalbumin profile DTAP,TDAP,TD (1 - Tdap) [facility] Start: 08-31-1965 HEPATITIS C SCREENING HEPATITIS C SCREENING [facility] Start: 1945 ABDOMINAL AORTIC ANEURYSM SCREENING ABDOMINAL AORTIC ANEURYSM SCREENING [facility] Patient Education [place] [employer] Work Phone: Payers Date Payer Category Payer Medicare [id number] 2015 Private Health Insurance HUMANA HUMANA MEDICARE SUPPLEMENT [id number] 2015-Present [phone] [address] [address] [place] [address] Indemnity [id number] 2012 Medicare MEDICARE MEDICAR E A AND B [id number] 2012-Present [phone] [address] [address] [place] [address] Medicare [id number] 2012 Medicare [id number] Social History Date Type Detail Facility Start: 07-13-2018 Tobacco smoking stat us GAIS Ex-smoker [facility] End: 06-14-1998 History of tobacco use Current smoker [facility] End: 06-14-1998 History of tobacco use Cigarette Smoker [facility] Start: 07-13-2018 Cigarettes smoked cu rrent (pack per day) - Reported 2 [facility] Start: 07-13-2018 Tobacco use and exposure Smoke less tobacco non-user [facility] Start: 08-08-2021 Alcohol intake Ex-drinker (finding) [facility] Start: 07-13-2018 Alcohol Comment recovering alcoholic [facility] Start: 1945 Sex Assigned At Not on file [facility] Note 06-26-2022 Telephone Encounter - Radha Dewayne - 06/26/2022 9:23 AM EDT Note Date & Type Note Facility 06-26-2022 Miscellaneous Notes Formattin g of this note might be different from the original. Called Pt to schedule annual testing/follow up - Pt said he had surgery in Oct 2021 w/ [facility] on his carotid artery and does not need to be seen. documented in this encounter [facility] Progress note 08-08-2021 Note Date & Type Note Facility 08-08-2021 Note HNO ID: [id number] Author: Arabella Lagunas MD Service: ? Author Type: Physician Type: Progress Notes Filed: 08/08/2021 11:25 AM Note Text: Sergio Clifford is a 75 year old male presents for initial evaluation of carotid disease. Pt is a prior pt of [facility]. He is on plavix, asa, and statin. He saw [facility] 01/2021: Patient seen today in follow-up of [...] was referred to Dr Dhruv Xavier at [facility] by Dr Fatoumata Koroma for occlusion and stenosis of B carotids and requested he be seen [facility]. Dr Xavier deferred mgmt to [place] as he was already established here and pt did not want to come to [place]. Pt had a recent US on 07/05/21 [...] TABS One tablet by mouth daily ALLOPURINOL [id number] Shazia Perez RN 06-13-2010 [facility] ([id number]) - lisinopril (ZESTRIL, PRINIVIL) 20 mg tablet Take 20 mg by mouth once daily. - atorvastatin (LIPITOR) 40 mg tablet Take 40 mg by mouth once daily. - aspirin, enteric coated (ASPIRIN, ENTERIC COATED) 325 mg EC tablet aspirin ECOTRIN 325 MG TBEC One tablet by mouth da (more content not included)... [facility] Progress note 11-06-2020 Note Date & Type Note Facility 11-06-2020 Note HNO ID: [id number] Author: Rodrick Carter Service: ? Author Type: [employer] Lecturer Type: Progress Notes Filed: 11/06/2020 3:39 PM [...] DATE: November 06, 2020 TIME: 3:39 PM [facility] Summary Purpose Family History No Family History Records FoundNo Family History Records Found Advance Directives No Advanced Directives Records FoundNo Advanced Directives Records Found Additional Source Comments (unrecognized sect ion and content) No Status Records FoundNo Status Records Found INFORMATION SOURCE (unrecogn ized section and content) DATE CREATED AUTHOR AUTHOR'S ORGANIZ ATION 06/30/2022 [facility] Source Comments (unrecognize d section and content) In the event this informatio n is protected by the Federal Confidentiality of Alcohol and Drug Abuse Patient Records regulations: The Federal rules restrict any use of the information to criminally investigate or prosecute any alcohol or drug abuse patient.[facility] the event this information is protected by the Federal Confidentiality of Alcohol and Drug Abuse Patient Records regulations: The Federal rules restrict any use of the information to criminally investigate or prosecute any alcohol or drug abuse patient.[facility] Reason for Visit (unrecogniz ed section and content) Reason Comments Appointment Appointment Care Teams (unrecognized sec tion and content) Credit Collections Analyst Relationship Specialty Start Date End Date Santosh Maher DO [address] [place] [address] PCP - General Family Medicine 01/24/21 Kashmir Bruno MD [address] [place] [address] Referring General Surgery 06/21/18 Santosh Maher DO [address] [place] [address] Family Medicine 10/28/19 Tyson Leroy [address] [facility] [place] [address] Cardiology 10/28/19 Santosh Maher DO [address] [place] [address] Family Medicine 11/01/20 Fatoumata Pimentel(Historical)MD [address] [place] [address] Referring Endocrinology 07/18/21 fatoumata pimentel [place] Physician [...] BE BASED ON THE PRIMARY CLINICAL RECORDS. [facility]. provides no warranty or guarantee of the accuracy or completeness of information in this document.
[2023-05-20] MEDS: Lactated Ringers 1,000 ML 15 ML IV (08:29)
--- NOTE | 2023-05-20 08:58 | DCINST_ITS ---
Discharge Instructions Diet Discharge Diet: No restrictions Activity Discharge Activity: Return to Normal Activity and May Not Drive (while taking narcotic pain medications.) Dressing / Incision Call your doctor if you observe: Fever of 101 or Higher Follow Up Care Please Follow Up With: Jam Cohen MD When: Call [phone] for an appointment Test Results: Test results from this visit will be discussed in further detail at your follow- up appointment, if applicable. Discharge Plan Admission Primary Reason for Your Visit: Gold markers and spacer gel Attending Provider: Jam Cohen Primary Care Provider: Humphrey Maehr Discharge Orders/Prescriptions Prescriptions: New ciprofloxacin HCl [Cipro] 500 mg tablet 500 mg PO BID Qty: 10 0RF Continued albuterol sulfate [ProAir HFA] 90 mcg/actuation HFA aerosol inhaler 2 puff INHALATION Q6H PRN (Reason: Wheezing) cholecalciferol (vitamin D3) 1,000 unit capsule 1,000 unit capsule 3,000 unit PO DAILY Spiriva Respimat 2.5 mcg/actuation mist 2 inh inhalation QAM nitroglycerin 0.4 mg tablet, sublingual 0.4 mg sublingual Q5-15M lisinopril 30 mg tablet 20 mg PO BID Eliquis 5 mg tablet 5 mg PO BID Patient Comments: SEE DR. DOWNEY potassium chloride 10 mEq capsule, extended release 10 meq PO DAILY furosemide [Lasix] 20 mg tablet 20 mg PO DAILY nifedipine 60 mg tablet extended release 60 mg PO DAILY levothyroxine 75 mcg capsule 75 mcg PO DAILY aspirin [Jas Low Dose Aspirin] 81 mg tablet,delayed release (DR/EC) 81 mg PO DAILY Patient Comments: START 05/15/[address] GALLEGO metoprolol tartrate 25 mg tablet 25 mg PO BID Patient Comments: TAKE 1 TABLET BY MOUTH TWICE A DAY FOR 90 DAYS atorvastatin 20 mg tablet 60 mg PO QHS Rx Instructions: TAKE 1 TABLET BY MOUTH EVERY DAY FOR CHOLESTEROL pantoprazole 40 mg tablet,delayed release (DR/EC) 40 mg PO QDAY clopidogrel [Plavix] 75 mg tablet 75 mg PO QDAY Patient Comments: SEE DR. GALLEGO allopurinol 300 mg tablet 300 mg PO QDAY Qty: 90 1RF Referrals / Follow Up: Humphrey Maher DO [Primary Care Provider] - Disposition Disposition (needs filled in before D/C Order can be placed): Home, Self Care
--- NOTE | 2023-05-20 08:58 | HP.PCM_ITS ---
[facility] - General General Date of Service: 05/20/23 HPI Felix BARAJAS, is a 77 M who presents for placement of gold markers and spacer gel he plans to have radiation treatments for prostate cancer high risk [facility] Medical History (Updated 05/12/23 @ 11:34 by Precious Camacho) Ambulates with cane Arthritis Atherosclerotic heart disease of [place] coronary artery without angina pectoris Back pain CAD (coronary artery disease) Cancer Cardiology follow-up encounter Carotid stenosis, bilateral Chest pain COPD (chronic obstructive pulmonary disease) CPAP (continuous positive airway pressure) dependence Easy bruising Emphysema, unspecified Essential hypertension Excessive bleeding Former smoker Former smoker Gastric reflux Gout High cholesterol History of atrial fibrillation History of echocardiogram History of edema History of heart attack History of hiatal hernia History of irregular heartbeat History of pain when walking History of stress test Hyperlipidemia Hypertension Leg cramps Nocturia Old myocardial infarction Phimosis Shortness of breath on exertion Sleep apnea Spermatocele of epididymis Thyroid disease Wears dentures Wears glasses Wears hearing aid Home Medications clopidogrel 75 mg tablet (Plavix) 75 mg PO QDAY CLOTTING 05/22/17 [History Last Taken 05/15/23] pantoprazole 40 mg tablet,delayed release 40 mg PO QDAY GERD 05/22/17 [History Last Taken 05/20/23] albuterol sulfate 90 mcg/actuation aerosol inhaler (ProAir HFA) 2 puff inhalation Q6H PRN Wheezing 07/20/17 [History Last Taken 11/09/21] cholecalciferol (vitamin D3) 25 mcg (1,000 unit) capsule 3,000 unit PO DAILY VITAMIN 04/01/18 [History Last Taken 11/10/21] tiotropium bromide 2.5 mcg/actuation mist for inhalation (Spiriva Respimat) 2 inh inhalation QAM COPD 01/23/21 [History Last Taken 11/11/21] nitroglycerin 0.4 mg sublingual tablet 0.4 mg sublingual Q5-15M 09/09/22 [History Last Taken Unknown] allopurinol 300 mg tablet 300 mg PO QDAY GOUT #90 tabs 01/29/23 [Rx Last Taken Unknown] apixaban 5 mg tablet (Eliquis) 5 mg PO BID 04/07/23 [History Last Taken 05/15/23] lisinopril 30 mg tablet 20 mg PO BID 04/07/23 [History Last Taken 05/20/23] furosemide 20 mg tablet (Lasix) 20 mg PO DAILY 04/14/23 [History Last Taken Unknown] levothyroxine 75 mcg capsule 75 mcg PO DAILY 04/14/23 [History Last Taken 05/20/23] nifedipine 60 mg tablet,extended release 60 mg PO DAILY 04/14/23 [History Last Taken 05/20/23] potassium chloride 10 mEq capsule,extended release 10 meq PO DAILY 04/14/23 [History Last Taken Unknown] aspirin 81 mg tablet,delayed release (Jas Low Dose Aspirin) 81 mg PO DAILY 0 05/12/23 [History Last Taken 05/19/23] atorvastatin 20 mg tablet 60 mg PO QHS 05/12/23 [History Last Taken Unknown] metoprolol tartrate 25 mg tablet 25 mg PO BID 05/12/23 [History Last Taken 05/19/23 22:00] ciprofloxacin HCl 500 mg tablet (Cipro) 500 mg PO BID #10 tabs 05/20/23 [Rx Last Taken Unknown] Allergy/AdvReac Type Severity Reaction Status Date / Time venom-wasp protein Allergy Severe Anaphylaxis Verified 05/20/23 08:13 Family History Father CVA (cerebral vascular accident) Mother CAD (coronary artery disease) Hx of CABG CHF (congestive heart failure) S/P MVR (mitral valve replacement) Brother COPD (chronic obstructive pulmonary disease) Diabetes Cancer lung Grandfather Colon cancer Surgical History (Updated 05/12/23 @ 11:34 by Precious Camacho) H/O hernia repair H/O local excision of skin lesion History of brain surgery History of cardiac catheterization History of coronary artery stent placement History of left knee surgery History of left-sided carotid endarterectomy History of tonsillectomy Hx of circumcision Hx of prostate biopsy (~03/23/23) Postsurgical percutaneous transluminal coronary angioplasty (PTCA) status (03/21/22) Presence of stent in coronary artery (~01/22/11) Status post carotid endarterectomy Social History Smoking Status: Former smoker how long ago did patient quit smokin alcohol intake: never substance use type: does not use caffeine: Yes (3 servings per day) what type of physical activity do you participate in: walking frequency: daily Vital Signs Vital Signs Vital Signs: 05/20/23 08:16 05/20/23 08:16 Temperature 98.4 F Temperature Source Temporal Pulse Rate 72 Respiratory Rate 16 Respiratory Pattern Normal Blood Pressure 117/56 L Blood Pressure Mean 76 Blood Pressure Source Monitor Blood Pressure Position Semi-Fowlers Blood Pressure Location Left Arm Pulse Ox 94 Oxygen Delivery Method Room Air Weight Weight: 84.368 kg Body Mass Index (BMI) 27.4
[2023-05-20] MEDS: Cefazolin 2 GM in 0.9% Normal Saline (100mL Bag) 100 ML IV (10:02)
--- NOTE | 2023-05-20 10:19 | PCM.OPRPT ---
Report of Operation Date of Procedure: 05/20/23 Pre-Operative Diagnosis: Prostate cancer Post-Operative Diagnosis: The same Surgery/Procedure Performed:: Placement of gold markers and spacer gel Description of Surgical Findings:: In the preoperative area I reviewed with the patient how the procedure is done we talked about the risk of the procedure including the risk of infection, bleeding, migration of the spacer gel, the patient is planning to have radiation to the prostate he understands that the spacer gel has demonstrated benefit in reducing the risk of toxicity from the ration radiation to the rectum but there is no guarantees that this spacer gel will prevent any serious complications or toxicity to the rectum or bowels. After reviewing this with the patient and his family organ to proceed with placement of a spacer gel matrix. Patient was taken back to the operating room after smooth induction of anesthesia he was placed supine on the table. The genitals and perineum were prepped and draped in usual sterile fashion. I then introduced a biplanar ultrasound probe into the rectum and performed ultrasonography and identified the Denonvilliers' fascia the prostate mid base and apex and seminal vesicles. The spacer gel mix was then prepared on the back table per manufactures instruction. Under ultrasound guidance in the midline perineum a bevel needle down we advanced through the perineum below the prostate into the space of Denonvilliers' fascia. This space which could be identified by ultrasound with a bright white layer between the prostate and the rectum. I then injected a puff of normal saline to identify the space further. After I confirmed that the needle was in the correct space in the mid prostate and the space of Denonvilliers' fascia between the rectum and the prostate. Then over the course of 15 seconds the gel matrix was injected slowly there was nice separation between the prostate and the rectum at the gel matrix was injected. The position of the gel matrix was confirmed by ultrasound. The penis and testicles were prepped and draped in usual sterile fashion, ultrasound probe was placed into the rectum and biplanar ultrasound was performed on the prostate. Identified the base mid and apex of the prostate identified the transition zone prostate. Then using a needle the first manufacturing controller was placed into the right base of the prostate, the second manufacturing controller was placed in the left base of the prostate, and the third core marker was placed in the right apex of the prostate after all 3 markers were placed the placement of the markers were confirmed by ultrasonography. Then the injection needle was removed intact. Patient's perineum was cleaned patient was taken out of stirrups and then taken back to the PACU in good condition. Surgeon: Jam Cohen Type of Anesthesia: General Admit VTE Documentation VTE Present on Admission: No VTE Mechan Device Prophylaxis: SCD's VTE Pharm Prophylaxis ordered?: No
== END 2023-05-20 12:02 | disposition home or self-care (01) ==
LOC: SDC 07:47 → AC 07:48
PROVIDERS: PCP Family Medicine; Referring Provider Urology; Visit Provider Urology
PROC: (CPT 55874; principal; 2023-05-20 09:40)
DX: C61 Malignant neoplasm of prostate (principal); J44.9 Chronic obstructive pulmonary disease, unspecified; Z80.0 Family history of malignant neoplasm of digestive organs; Z79.02 Long term (current) use of antithrombotics/antiplatelets; Z79.82 Long term (current) use of aspirin; Z87.891 Personal history of nicotine dependence; I10 Essential (primary) hypertension; M10.9 Gout, unspecified; I25.10 Atherosclerotic heart disease of native coronary artery without angina pectoris; E78.00 Pure hypercholesterolemia, unspecified; Z95.5 Presence of coronary angioplasty implant and graft; I25.2 Old myocardial infarction; E03.9 Hypothyroidism, unspecified; G47.30 Sleep apnea, unspecified; Z99.89 Dependence on other enabling machines and devices; Z82.49 Family history of ischemic heart disease and other diseases of the circulatory system
CPT/HCPCS: 55876; 00400; J7120; J2405

== ENCOUNTER → 2023-05-27 | Outpatient (CLI) | payer MEDICARE, OTHER, SELFPAY ==
[2022-07-02 06:43] VITALS: BMI 26.4
--- NOTE | 2023-05-27 10:51 | MRI_ITS ---
STUDY: MR PROSTATE GLAND/ PELVIS WITH T WITHOUT CONTRAST REASON FOR EXAM: Male, 77 years old. eval for disease extent, planning for XRT TECHNIQUE: Standardized fat and water weighted pulse sequences were obtained in all 3 orthogonal planes, pre-and post contrast administration. IV 17ml clariscan was administered for the contrast portion of the examination. COMPARISON: PET/CT exam dated April 28, 2023. CT of abdomen and pelvis dated June 28, 2021 FINDINGS: A small left inguinal/testicular hernia is present with a small amount of fluid in the hernia sac. Prostate gland volume/size: 3.88 x 3.26 x 4.07 cm. Small amount of fluid posterior to the prostate gland and seminal vesicles could be related to prior infection or inflammation or sequela from intervention. Anterior fibromuscular stroma: Normal Peripheral zone: Abnormal lobular diffuse low signal replacement throughout most of the bilateral peripheral zones, most pronounced in the inner and midline regions. Infiltrative intermediate to low signal process at the midline of the right and left peripheral zones also demonstrates enhancement on the postcontrast study, however no significant restricted diffusion is seen in this region. Small fluid collection posterior to the left peripheral zone measures 2.59 x 2.41 cm could be related to prior prostatitis/infection, or the result of intervention to this region. Central zone: Mildly heterogeneous without a focal nodule or mass Transitional zone: Mildly heterogeneous without a focal nodule or mass Prostate capsule: Mild thinning and irregularity of the left posterior capsule of the peripheral zone with the adjacent fluid collection and linear spicules in this region as seen on image 30/40 series 5 is concerning for extracapsular spread of disease unless there is no intervention or biopsy in this region which would explain these findings. The capsule in the remaining aspects of the prostate gland is intact. Seminal vesicles: Normal Pelvic sidewall lymphadenopathy: None present Bony structures: No marrow edema or lytic or blastic lesions or infiltrative process of the marrow. Normal urinary bladder. Normal visualized small intestine. Normal visualized colon. There is no pelvic fluid. There is no pelvic mass lesion or lymphadenopathy. MRI/Pelvis W/WO Contrast IMPRESSION: 1. Abnormal lobular diffuse low signal replacement throughout most of the bilateral peripheral zones, most pronounced in the inner and midline regions. Infiltrative intermediate to low signal process at the midline of the right and left peripheral zones also demonstrates enhancement on the postcontrast study, however no significant restricted diffusion is seen in this region. 2. PI-RADS 4: high (clinically significant cancer is likely to be present) 3. Prostate capsule: Mild thinning and irregularity of the left posterior capsule of the peripheral zone with the adjacent fluid collection and linear spicules in this region as seen on image 30/40 series 5 is concerning for extracapsular spread of disease unless there is no intervention or biopsy in this region which would explain these findings. The capsule in the remaining aspects of the prostate gland is intact. Reference information: Normal prostate tissue Benign prostatic hypertrophy cancer/tumor - low signal peripheral , transitional, and central zones malignancy appears as bright on DWI and low signal on ADC map Prostate imaging-reporting and data system (PI-RADS) PI-RADS 1: very low (clinically significant cancer is highly unlikely to be present) PI-RADS 2: low (clinically significant cancer is unlikely to be present) PI-RADS 3: intermediate (the presence of clinically significant cancer is equivocal) PI-RADS 4: high (clinically significant cancer is likely to be present) PI-RADS 5: very high (clinically significant cancer is highly likely to be present) PI-RADS X: component of exam technically inadequate or not performed Prostate malignancy distribution: Peripheral zone: 70-80% Transitional zone: 10-20% Central zone: 5% or less Electronically Signed: Jaswant Resendiz MD at 12:43 EDT ,
[2023-05-27 11:23] LABS: CREATININE FINGERSTICK < 1.0 mg/dL (0.70-1.30); EGFR FINGERSTICK > 60.0000 mL/min (>60)
--- OUTSIDE RECORDS SUMMARY | 2023-05-27 17:50 | XMS RPT_ITS | CCD ---
Author Name Unknown Address [address] [place] [address] Organization [facility] Care Team Providers Care Electrician Research Name Role Phone Davin KAMINSKI, Jelly Montoya Unavailable [phone] Tyson Leroy MD Unavailable [phone] Carla Perdomo Unavailable Kashmir Bruno MD Unavailable Santosh Maher DO Unavailable [phone] Tyson Leroy Unavailable Santosh Maher DO Unavailable [phone] Santosh Maher DO Primary Care Provider Fatoumata Pimentel MD(Historical) Unavailable Un available ARABELLA LAGUNAS Attending Unavailable SANTOSH MAHER Referring Unavailable SANTOSH MAHER Primary Care Unavailable Allergies Allergy Classification Reported Allergen(s) Allergy Type Date of Onset Reaction(s) Facility (3 sources) Bee pollen; Translations: [BEE POLLEN] Drug Allergy 07-12-2018 Mental Status Change [facility] Medications Completed/Discontinued Medications Medication Drug Class(es) Dates Sig (Normalized) Sig (Original) [id number] 200 actuat albuterol 0.09 mg/actuat metered dose [...] 03-21-2015 Episodic Other aftercare (3 sources) Other superintendent [employer] (current) drug therapy; Translations: [Other superintendent [employer] (current) drug therapy] Onset: 06-13-2010 06-13-2010 Episodic [...] Start: 06-26-2022 Telephone encounter Karla Esau tthews FAT PRESSROOM WORKER.PARALEGAL ASSISTANT Work Phone: [facility] [...] Start: 11-14-2022 Influenza vaccination INFLUENZA (Season Ended) [facility] Start: 03-16-2022 ADVANCE DIRECTIVE DISCUSSION ADVANCE DIRECTIVE DISCUSSION [facility] Start: 03-16-2022 DEPRESSION ASSESSMENT DEPRESSION ASSESSMENT [facility] Start: 06-12-2021 COVID-19 VACCINE (4 - Booster for Moderna series) COVID-19 VACCINE (4 - Booster for Moderna series) [facility] Start: 07-20-2017 End: 07-20-2017 Appointment Appointment [facility] Work Phone: Start: 11-20-2016 End: 11-20-2016 Follow Up Appt 6 months Follow Up Appt 6 months [facility] Work Phone: Start: 11-20-2016 End: 11-20-2016 Nuclear stress test -Lexiscan Nuclear stress test -Lexiscan [facility] Work Phone: Start: 11-20-2016 End: 11-20-2016 PFM PFM [facility] Work Phone: Start: 05-19-2016 End: 05-19-2016 Follow Up Appt 6 months Follow Up Appt 6 months [facility] Work Phone: Start: 05-19-2016 End: 05-19-2016 MMM MMM [facility] Work Phone: Start: 03-05-2016 End: 11-11-2016 *Hepatic Function Panel *Hepatic Function Panel [facility] Work Phone: Start: 03-05-2016 End: 11-11-2016 Lipid panel [AGGREGATE] *Lipid Profile CC PCP [facility] Work Phone: Start: 09-19-2015 End: 09-19-2015 Follow Up Appt 6 months Follow Up Appt 6 months [facility] Work Phone: Start: 09-19-2015 End: 09-19-2015 PFM PFM [facility] Work Phone: Start: 03-21-2015 End: 09-04-2015 Electrocardiogram, complete EKG (In office) [facility] Work Phone: Start: 03-21-2015 End: 03-21-2015 Follow Up Appt 6 months Follow Up Appt 6 months [facility] Work Phone: Start: 03-21-2015 End: 03-21-2015 MMM MMM [facility] Work Phone: Start: 03-21-2015 End: 03-21-2015 Nuclear stress test -exercise Nuclear stress test -exercise [facility] Work Phone: Start: 03-08-2015 End: 09-05-2015 *Hepatic Function Panel *Hepatic Function Panel [facility] Work Phone: Start: 03-08-2015 End: 09-05-2015 Lipid panel [AGGREGATE] *Lipid Profile CC PCP [facility] Work Phone: Start: 09-18-2014 End: 09-18-2014 Follow Up Appt 6 months Follow Up Appt 6 months [facility] Work Phone: Start: 09-18-2014 End: 09-18-2014 PFM PFM [facility] Work Phone: Start: 09-13-2014 End: 09-06-2014 *Hepatic Function Panel *Hepatic Function Panel [facility] Work Phone: Start: 09-13-2014 End: 09-06-2014 Lipid panel [AGGREGATE] *Lipid Profile CC PCP [facility] Work Phone: Start: 03-22-2014 End: 03-22-2014 Follow Up Appt 6 months Follow Up Appt 6 months [facility] Work Phone: Start: 03-22-2014 End: 03-22-2014 MMM MMM [facility] Work Phone: Start: 02-13-2014 End: 03-13-2014 *Hepatic Function Panel *Hepatic Function Panel [facility] Work Phone: Start: 02-13-2014 End: 03-13-2014 Lipid panel [AGGREGATE] *Lipid Profile CC PCP [facility] Work Phone: Start: 09-14-2013 End: 09-04-2015 Vascular Surgery Vascular Surgery Evan Delatorre MD, [address], [address], [address] [facility] Work Phone: Start: 09-12-2013 End: 03-13-2014 *Hepatic Function Panel *Hepatic Function Panel [facility] Work Phone: Start: 09-12-2013 End: 09-12-2013 Follow Up Appt 6 months Follow Up Appt 6 months [facility] Work Phone: Start: 09-12-2013 End: 03-13-2014 Lipid panel [AGGREGATE] *Lipid Profile CC PCP [facility] Work Phone: Start: 08-14-2013 End: 09-06-2013 *Hepatic Function Panel *Hepatic Function Panel [facility] Work Phone: Start: 08-14-2013 End: 09-06-2013 Lipid panel [AGGREGATE] *Lipid Profile CC PCP [facility] Work Phone: Start: 03-10-2013 End: 03-10-2013 Arterial exam Arterial exam [facility] Work Phone: Start: 03-10-2013 End: 03-10-2013 Follow Up Appt 6 months Follow Up Appt 6 months [facility] [employer] [facility] Work Phone: Start: 03-10-2013 End: 03-10-2013 Nuclear stress test -exercise Nuclear stress test -exercise [facility] Work Phone: Start: 03-10-2013 End: 03-10-2013 PFM PFM [facility] Work Phone: Start: 02-13-2013 End: 02-21-2013 *Hepatic Function Panel *Hepatic Function Panel [employer] [employer] Work Phone: Start: 02-13-2013 End: 02-21-2013 Lipid panel [AGGREGATE] *Lipid Profile CC PCP [facility] Work Phone: Start: 09-09-2012 End: 09-09-2012 Follow Up Appt 6 months Follow Up Appt 6 months [facility] [employer] [facility] Work Phone: Start: 09-09-2012 End: 09-09-2012 MMM MMM [facility] Work Phone: Start: 08-31-2012 PNEUMOCOCCAL: 65+ (1 - PCV) PNEUMOCOCCAL: 65+ (1 - PCV) [facility] Start: 08-14-2012 End: 09-02-2012 *Hepatic Function Panel *Hepatic Function Panel [facility] Work Phone: Start: 08-14-2012 End: 09-02-2012 Lipid panel [AGGREGATE] *Lipid Profile [facility] [facility] Work Phone: Start: 03-01-2012 End: 03-01-2012 Echocardiography Echocardiogram (complete) [employer] Work Phone: Start: 03-01-2012 End: 03-01-2012 Electrocardiogram, complete EKG (In office) [facility] Work Phone: Start: 03-01-2012 End: 03-01-2012 Follow Up Appt 6 months Follow Up Appt 6 months [facility] Work Phone: Start: 03-01-2012 End: 03-01-2012 Nuclear stress test -exercise Nuclear stress test -exercise [facility] [employer] Work Phone: Start: 08-25-2011 End: 02-25-2012 *Hepatic Function Panel *Hepatic Function Panel [facility] Work Phone: Start: 08-25-2011 End: 08-25-2011 Electrocardiogram, complete EKG (In office) [facility] Work Phone: Start: 08-25-2011 End: 09-09-2012 Follow Up Appt 6 months Follow Up Appt 6 months [facility] [employer] Work Phone: Start: 08-25-2011 End: 02-25-2012 Lipid panel [AGGREGATE] *Lipid Profile [facility] Work Phone: Start: 02-26-2011 End: 02-25-2012 *Hepatic Function Panel *Hepatic Function Panel [facility] [employer] Work Phone: Start: 02-26-2011 End: 05-05-2011 Electrocardiogram, complete EKG (In office) [facility] Work Phone: Start: 02-26-2011 End: 05-05-2011 Follow Up Appt 6 months Follow Up Appt 6 months [facility] Work Phone: Start: 02-26-2011 End: 02-25-2012 Lipid panel [AGGREGATE] *Lipid Profile [facility] Work Phone: Start: 08-31-1997 SHINGRIX VACCINE (1 of 2) SHINGRIX VACCINE (1 of 2) [facility] Start: 08-31-1992 COLOGUARD (FIT-DNA) COLOGUARD (FIT-DNA) [facility] Start: 08-31-1992 Colonoscopy COLONOSCOPY [facility] Start: 08-31-1992 COLORECTAL CANCER SCREENING COLORECTAL CANCER SCREENING [facility] Start: 08-31-[address] COLONOGRAPHY [facility] Start: 08-31-1992 DIABETES SCREEN DIABETES SCREEN [facility] Start: 08-31-1992 FECAL OCCULT BLOOD FECAL OCCULT BLOOD [facility] Start: 08-31-1992 SIGMOIDOSCOPY SIGMOIDOSCOPY [facility] Start: 08-31-1982 LIPID SCREEN LIPID SCREEN [facility] Start: 08-31-1966 Urine microalbumin profile DTAP,TDAP,TD (1 - Tdap) [facility] Start: 08-31-1965 HEPATITIS C SCREENING HEPATITIS C SCREENING [facility] Start: 1945 ABDOMINAL AORTIC ANEURYSM SCREENING ABDOMINAL AORTIC ANEURYSM SCREENING [facility] Patient Education [facility] [facility] Work Phone: Payers Date Payer Category Payer Medicare [id number] 2015 Private Health Insurance HUMANA HUMANA MEDICARE SUPPLEMENT [id number] 2015-Present [phone] [address] [address] [place] [address] Indemnity [id number] 2012 Medicare MEDICARE MEDICAR E A AND B [id number] 2012-Present [phone] [address] [address] [place] [address] Medicare [id number] 2012 Medicare [id number] Social History Date Type Detail Facility Start: 07-13-2018 Tobacco smoking stat us LAIS Ex-smoker [facility] End: 06-14-1998 History of tobacco use Current smoker [facility] End: 06-14-1998 History of tobacco use Cigarette Smoker [facility] Start: 07-13-2018 Cigarettes smoked cu rrent (pack per day) - Reported 2 [facility] Start: 07-13-2018 Tobacco use and exposure Smoke less tobacco non-user [facility] Start: 08-08-2021 Alcohol intake Ex-drinker (finding) [facility] Start: 07-13-2018 Alcohol Comment recovering alcoholic [facility] Start: 1945 Sex Assigned At Not [...] to be seen. documented in this encounter [facility] Progress note 08-08-2021 Note Date & Type Note Facility 08-08-2021 Note HNO ID: [id number] Author: Arabella Lagunas MD Service: ? Author Type: Physician Type: Progress Notes Filed: 08/08/2021 11:25 AM Note Text: Sergio Clifford is a 75 year old male presents for initial evaluation of carotid disease. Pt is a prior pt of [facility]. He is on plavix, asa, and statin. He saw [facility] 01/2021: Patient seen today in follow-up [...] was referred to Dr Dhruv Xavier at [facility] by Dr Fatoumata Koroma for occlusion and stenosis of B carotids and requested he be seen [facility]. Dr Xavier deferred mgmt to [place] as he was already established here and pt did not want to come to [facility]. Pt had a recent US on 07/05/21 [...] TABS One tablet by mouth daily ALLOPURINOL [id number] Shazia Perez RN 06-13-2010 [facility] ([id number]) - lisinopril (ZESTRIL, PRINIVIL) 20 mg tablet Take 20 mg by mouth once daily. - atorvastatin (LIPITOR) 40 mg tablet Take 40 mg by mouth once daily. - aspirin, enteric coated (ASPIRIN, ENTERIC COATED) 325 mg EC tablet aspirin ECOTRIN 325 MG TBEC One tablet by mouth da (more content not included)... [facility] Progress note 11-06-2020 Note Date & Type Note Facility 11-06-2020 Note HNO ID: [id number] Author: Rodrick Carter Service: ? Author Type: Ore Roaster Type: Progress Notes Filed: 11/06/2020 3:39 PM [...] DATE: November 06, 2020 TIME: 3:39 PM [facility] Summary Purpose Family History No Family History Records FoundNo Family History Records Found Advance Directives No Advanced Directives Records FoundNo Advanced Directives Records Found Additional Source Comments (unrecognized sect ion and content) No Status Records FoundNo Status Records Found INFORMATION SOURCE (unrecogn ized section and content) DATE CREATED AUTHOR AUTHOR'S ORGANIZ ATION 06/30/2022 [facility] Source Comments (unrecognize d section and content) In the event this informatio n is protected by the Federal Confidentiality of Alcohol and Drug Abuse Patient Records regulations: The Federal rules restrict any use of the information to criminally investigate or prosecute any alcohol or drug abuse patient.[facility] the event this information is protected by the Federal Confidentiality of Alcohol and Drug Abuse Patient Records regulations: The Federal rules restrict any use of the information to criminally investigate or prosecute any alcohol or drug abuse patient.[facility] Reason for Visit (unrecogniz ed section and content) Reason Comments Appointment Appointment Care Teams (unrecognized sec tion and content) Electrician Research Relationship Specialty Start Date End Date Santosh Maher DO [address] [place] [address] PCP - General Family Medicine 01/24/21 Kashmir Bruno MD [address] [place] [address] Referring General Surgery 06/21/18 Santosh Maher DO [address] [place] [address] Family Medicine 10/28/19 Tyson Leroy [address] [place] [address] Cardiology 10/28/19 Santosh Maher DO [address] [place] [address] Family Medicine 11/01/20 Fatoumata Pimentel(Historical)MD [address] [place] [address] Referring Endocrinology 07/18/21 fatoumata pimentel [place] Physician [...] BE BASED ON THE PRIMARY CLINICAL RECORDS. [facility]. provides no warranty or guarantee of the accuracy or completeness of information in this document.
== END | disposition home or self-care (01) ==
LOC: MRI 10:48
PROVIDERS: PCP Family Medicine; Referring Provider Student in an Organized Health Care Education/Training Program; Visit Provider Student in an Organized Health Care Education/Training Program
DX: C61 Malignant neoplasm of prostate (principal)
CPT/HCPCS: 72197; A9575

== ENCOUNTER → 2023-07-21 | Outpatient (CLI) | payer MEDICARE, OTHER, SELFPAY ==
[2022-07-02 06:43] VITALS: BMI 26.4
[2023-07-21 10:01] LABS: PSA,Total- Diagnostic 0.36 ng/mL (0.0-4.0)
== END | disposition home or self-care (01) ==
LOC: LAB 09:12
PROVIDERS: PCP Family Medicine; Referring Provider Nurse Practitioner; Visit Provider Nurse Practitioner
DX: C61 Malignant neoplasm of prostate (principal)
CPT/HCPCS: 36415; 84153

== ENCOUNTER → 2023-08-12 | Outpatient (CLI) | payer MEDICARE, OTHER, SELFPAY ==
[2022-07-02 06:43] VITALS: BMI 26.4
[2023-08-12 12:33] LABS: Anion Gap 6 (5-15); BUN 16 mg/dL (7-18); BUN/Creat Ratio 19.9 RATIO (10-20); Calcium,Total 9.5 mg/dL (8.5-10.1); Chloride 110 mmol/L (98-107); EST Glomerular Filtration Rate 99 mL/min (>60); Est Glom Filt Rate - Afr Amer 120 mL/min (>60); Glucose 102 mg/dL (74-106); Potassium 4.9 mmol/L (3.5-5.1); Sodium Level 143 mmol/L (136-145); Uric Acid 5.6 mg/dL (3.5-7.2)
== END | disposition home or self-care (01) ==
LOC: BIMLAB 11:07
PROVIDERS: PCP Family Medicine; Visit Provider Family Medicine
DX: M10.9 Gout, unspecified (principal); I48.91 Unspecified atrial fibrillation
CPT/HCPCS: 36415; 80048; 84550

== ENCOUNTER → 2023-09-25 | Outpatient (CLI) | payer MEDICARE, OTHER, SELFPAY ==
[2022-07-02 06:43] VITALS: BMI 26.4
== END | disposition home or self-care (01) ==
LOC: PSN 10:29
PROVIDERS: PCP Family Medicine; Referring Provider Physician Assistant Medical; Visit Provider Physician Assistant Medical
DX: I48.91 Unspecified atrial fibrillation (principal)
CPT/HCPCS: 94060; 94726; 94729

== ENCOUNTER → 2023-09-28 | Outpatient (CLI) | payer MEDICARE, OTHER, SELFPAY ==
[2022-07-02 06:43] VITALS: BMI 26.4
--- NOTE | 2023-09-28 09:36 | CDU_ITS ---
Reason For Study: Carotd Stenosis, Lt Endart Rt. Velocities/BP Lt. Velocities/BP Prox CCA 67/9 cm/sec. Prox CCA 135/26 cm/sec. Mid CCA 77/10 cm/sec. Mid CCA 146/34 cm/sec. Dist CCA 75/13 cm/sec. Dist CCA 171/34 cm/sec. Prox ICA 103/17 cm/sec. Prox ICA 70/14 cm/sec. Mid ICA 413/91 cm/sec. Mid ICA 125/36 cm/sec. Dist ICA 125/23 cm/sec. Dist ICA 108/36 cm/sec. Rt. ICA/CCA = 5.4. Lt. ICA/CCA = 0.9. Prox ECA 86 cm/sec. Prox ECA 76/7 cm/sec. Rt. Vert. 103/24 cm/sec. Lt. Vert. 60/9 cm/sec. Right Extracranial There is heterogeneous, irregular atherosclerotic plaque noted in the right common carotid artery. There is heterogeneous, irregular atherosclerotic plaque noted in the right internal carotid artery. The atherosclerotic plaque causes acoustic shadowing. There is heterogeneous, irregular atherosclerotic plaque noted in the right external carotid artery. Antegrade flow is noted in the right vertebral artery. Left Extracranial There is heterogeneous, irregular atherosclerotic plaque noted in the left common carotid artery. There is intimal thickening but no significant atherosclerotic plaque noted in the left internal carotid artery. There is intimal thickening but no significant atherosclerotic plaque noted in the left external carotid artery. Antegrade flow is noted in the left vertebral artery. Procedure Carotid Duplex [id number]. This is a Carotid Duplex examination using B-mode, color flow and specral Doppler. Exam performed in department. VL/Carotid Duplex Ultrasound Interpretation Summary Severe (>70%) stenosis right extracranial internal carotid. Moderate (50-69%) stenosis left extracranial internal carotid. Patent and antegrade vertebrals bilaterally. Ordering Physician: Blade Dahl Referring Physician: Humphrey Maher Performed By: Lisa Saez, RDCS, RVT
== END | disposition home or self-care (01) ==
LOC: CVS 09:35
PROVIDERS: PCP Family Medicine; Referring Provider Surgery Trauma Surgery; Visit Provider Surgery Trauma Surgery
DX: I65.23 Occlusion and stenosis of bilateral carotid arteries (principal)
CPT/HCPCS: 93880

== ENCOUNTER → 2023-10-09 | Outpatient (CLI) | payer MEDICARE, OTHER, SELFPAY ==
[2022-07-02 06:43] VITALS: BMI 26.4
--- NOTE | 2023-10-09 06:39 | ECHOD_ITS ---
Reason For Study: CAD/ASHD Procedure This was a 2D Doppler, Color Flow transthoracic echocardiogram. Exam performed in department. Left Ventricle Normal LV size. Left ventricular systolic function is normal. The left ventricular ejection fraction is 55 %. No regional wall motion abnormalities noted. Right Ventricle Normal RV size. Normal systolic function. Mitral Valve There is mild to moderate mitral annular calcification. Mild (1+) eccentric mitral valve insufficiency. Tricuspid Valve Normal tricuspid valve. Mild (1+) tricuspid valve insufficiency. Pulmonary artery systolic pressure is 42 mmHg. Aortic Valve Trisinus/trileaflet aortic valve. Mild focal aortic valve calcification. Peak aortic valve gradient 21 mmHg. Mean aortic valve gradient 11 mmHg. Pulmonic Valve Normal pulmonic valve. Great Vessels Normal aortic root. The pulmonary artery is normal size. Inferior vena cava collapse with respiration. Pericardium/Pleural No pericardial effusion. MMode/2D Measurements & Calculations LVIDd: 5.0 cm IVSd: 0.86 cm LVOT diam: 2.2 cm LVIDs: 3.2 cm LVPWd: 1.0 cm LVOT area: 3.6 cm2 RVDd: 3.0 cm FS: 37.0 % Ao root diam: 3.2 cm LAV(MOD-bp): 76.6 ml LVAd ap4: 31.9 cm2 LAV(MOD-bp) Indexed: 40.2 ml/m2 LVLd ap4: 7.9 cm LAV(MOD-sp2): 77.9 ml EDV(MOD-sp4): 109.1 ml LAV(MOD-sp4): 77.9 ml EDV(sp4-el): 109.8 ml LVAs ap4: 20.2 cm2 LVLs ap4: 7.2 cm ESV(MOD-sp4): 49.9 ml ESV(sp4-el): 48.4 ml EF(MOD-sp4): 54.2 % EF(sp4-el): 55.9 % SV(MOD-sp4): 59.1 ml SV(MOD-sp2): 33.1 ml LVAd ap2: 22.3 cm2 LVLd ap2: 7.1 cm EDV(MOD-sp2): 59.4 ml EDV(sp2-el): 59.9 ml LVAs ap2: 13.8 cm2 LVLs ap2: 6.8 cm ESV(MOD-sp2): 26.3 ml ESV(sp2-el): 23.6 ml EF(MOD-sp2): 55.7 % SV(sp4-el): 61.3 ml Aortic Valve Planimetry: 1.2 cm2 LA A4 area: 22.8 cm2 LA dimension(2D): 4.8 cm TAPSE: 2.1 cm RA A4 area: 15.0 cm2 Time Measurements MV dec time: 0.20 sec Doppler Measurements & Calculations MV E max xavier: 70.4 cm/sec Lat Peak E' Xavier: 11.9 cm/sec Med Peak E' Xavier: 8.5 cm/sec MV A max xavier: 54.4 cm/sec E/E' lat: 5.9 E/E' med: 8.2 MV E/A: 1.3 MV V2 max: 85.4 cm/sec MV P1/2t max xavier: 85.4 cm/sec Ao V2 max: 230.6 cm/sec MV max P.9 mmHg MV P1/2t: 58.0 msec Ao max P.3 mmHg MV V2 mean: 45.4 cm/sec MV dec slope: 431.3 cm/sec2 Ao V2 mean: 160.7 cm/sec MV mean P.96 mmHg Ao mean P.2 mmHg MV V2 VTI: 22.7 cm MVA(P1/2t): 3.8 cm2 Ao V2 VTI: 60.5 cm MVA(VTI): 3.7 cm2 AV (velocity ratio): 0.38 JEROMY(I,D): 1.4 cm2 JEROMY(V,D): 1.2 cm2 LV V1 max: 77.4 cm/sec MR max xavier: 507.4 cm/sec SV(LVOT): 83.1 ml LV V1 max P.4 mmHg MR max P.0 mmHg LV V1 mean P.4 mmHg MR mean xavier: 398.3 cm/sec LV V1 mean: 56.5 cm/sec MR mean P.2 mmHg LV V1 VTI: 22.9 cm MR VTI: 188.0 cm PA V2 max: 101.8 cm/sec TR max xavier: 308.8 cm/sec PA V2 mean: 62.4 cm/sec TR max P.2 mmHg ECHO/Echo Complete Interpretation Summary Normal LV size. Left ventricular systolic function is normal. The left ventricular ejection fraction is 55 %. Pulmonary artery systolic pressure is 42 mmHg. Mild focal aortic valve calcification. Peak aortic valve gradient 21 mmHg. Mean aortic valve gradient 11 mmHg. Ordering Physician: Brendan Lloyd Referring Physician: Humphrey Maher Performed By: Marifer Gold, ARTUR, RVT
== END | disposition home or self-care (01) ==
PROVIDERS: PCP Family Medicine; Referring Provider Internal Medicine Cardiovascular Disease; Visit Provider Internal Medicine Cardiovascular Disease
DX: I25.10 Atherosclerotic heart disease of native coronary artery without angina pectoris (principal); I48.0 Paroxysmal atrial fibrillation; C61 Malignant neoplasm of prostate; E78.5 Hyperlipidemia, unspecified
CPT/HCPCS: 93306

== ENCOUNTER 2023-11-09 16:48 | Inpatient (IN) | payer MEDICARE, OTHER, SELFPAY ==
[2022-07-02 06:43] VITALS: BMI 26.4
--- NOTE | 2023-10-29 13:43 | EKG12_ITS ---
Test Reason : PRE OP Blood Pressure : / mmHG Vent. Rate : 063 BPM Atrial Rate : 063 BPM P-R Int : 146 ms QRS Dur : 082 ms QT Int : 444 ms P-R-T Axes : 060 041 036 degrees QTc Int : 454 ms Normal sinus rhythm Normal ECG Confirmed by Mejia [place] ([id number]), social media editor CANDICE SOL ([id number]) on 11/02/2023 9:58:11 AM Referred By: Blade Dahl Confirmed By:Mejia [place]
[2023-10-29 14:40] LABS: Hemoglobin 11.5 g/dL (13.0-16.5); Mean Corp Hgb Conc 32.9 g/dL (32-36); Mean Corpuscular Hgb 31.5 pg (27.0-32.0); Mean Corpuscular Volume 95.9 fL (80-94); Mean Platelet Vol. 11.2 fl (6.2-12.0); Platelet Count 231 K/mm3 (150-450); RBC Distribution Width CV 13.5 % (11.6-14.6); Red Blood Count 3.65 M/mm3 (4.6-6.2); White Blood Count 7.2 K/mm3 (4.4-11.0)
[2023-10-29 14:47] LABS: International Normalized Ratio 1.5; Partial Thromboplast Time 36.8 Seconds (24.1-36.2); Prothrombin Time (Protime)PT. 17.7 SECONDS (11.7-14.9)
[2023-10-29 15:10] LABS: Anion Gap 8 (5-15); BUN 22 mg/dL (7-18); BUN/Creat Ratio 26.3 RATIO (10-20); Calcium,Total 9.2 mg/dL (8.5-10.1); Chloride 109 mmol/L (98-107); Creatinine, Serum 0.84 mg/dL (0.70-1.30); EST Glomerular Filtration Rate 95 mL/min (>60); Est Glom Filt Rate - Afr Amer 115 mL/min (>60); Glucose 96 mg/dL (74-106); Potassium 4.1 mmol/L (3.5-5.1); Sodium Level 143 mmol/L (136-145)
[2023-10-29 15:17] LABS: AST(SGOT) 25 U/L (15-37); Alanine Aminotransfer ALT/SGPT 21 U/L (16-61); Albumin, Serum 3.4 g/dL (3.2-5.0); Alkaline Phosphatase 96 U/L (45-117); Bilirubin, Direct 0.11 mg/dL (0.00-0.30); Cholesterol 99 mg/dL (200); Globulin 3.6 g/dL (2.2-4.2); High Density Lipoprotein 36 mg/dL; Triglycerides 163 mg/dL; Very Low Density Lipoprotein 33 mg/dL (5-40)
[2023-10-29 15:23] LABS: AST(SGOT) 13 U/L (15-37); Alanine Aminotransfer ALT/SGPT 19 U/L (16-61); Albumin, Serum 3.3 g/dL (3.2-5.0); Alkaline Phosphatase 95 U/L (45-117); Bilirubin, Direct 0.17 mg/dL (0.00-0.30); Globulin 3.3 g/dL (2.2-4.2); Protein, Total 6.6 g/dL (6.4-8.2); Thyroid Stim Hormone (TSH) 0.716 uIU/mL (0.358-3.740)
[2023-11-09] VITALS (22 sets, daily range): BP systolic 97–141; BP diastolic 33–75; PULSE 54–75; RESP 10–18; TEMP 36.1–36.9; O2SAT 85–100; BMI 23.8; BMI 24.2
--- NOTE | 2023-11-09 | PLAQ_PTH ---
PATIENT: NIKKO BARAJAS LOC: ICU U#:[id number] AGE/SX: 78/M ROOM: [place] [address] RE11/09/[address]: Dr. Blade Dahl MD : 1945 BED: 1 DIS: 11/10/2023 SPEC #: [id number] RECD: 11/10/23 07:09 STATUS: FRANKLIN REBety #: [id number] SARA: 11/09/23 00:[address]: Blade Dahl DEPT: SURGICAL PATHOLOGY RECD BY: Ulises Almonte ENTERED: 11/10/23 09:56 SP TYPE: PLAQUE OTHR DR: Dr. Humphrey Maher, DO Tissues: PLAQUE Procedures: Decalcification bone/plaque Surgery Specimen Level III HEADER OPERATION: Right carotid endarterectomy PRE-OP DIAGNOSIS: Asymptomatic stenosis of right carotid artery TISSUE SUBMITTED: Right carotid plaque MICROSCOPIC DIAGNOSIS Right carotid plaque, endarterectomy: Atherosclerotic tissue with moderate to marked calcification (plaque). SJ.mr 11/13/2023 GROSS DESCRIPTION Received in fixative is one container labeled with the patient's name and designated Right carotid plaque. The specimen consists of a tubular segment of oshea-yellow indurated tissue measuring 3.5cm in length and up to 1.0cm in diameter. The specimen cuts with gritty sensation. The specimen is serially sectioned and submitted entirely in one cassette after decalcification. 11/10/2023 TC:5 CPT:32032,52051
[2023-11-09] MEDS: Lactated Ringers 1,000 ML 15 ML IV (11:23)
--- NOTE | 2023-11-09 11:47 | PCM.PRE.AN2 ---
ASA Classification* ASA Classification ASA Classification: 4 Assessment & Plan Anesthesia* Anesthesia Assessment Anesthesia Assessment: Discussed sedation and/or anesthesia options, risks, benefits, and alternatives with patient/parents/legal guardian/POA. Questions invited. The patient/parents/legal guardian/POA seems to understand and agrees to proceed with anesthesia plan. Reviewed the physical assessment, medical history, allergy history and patient home medications list prior to surgery/procedure/anesthetic and documented any changes. Performed airway and anesthesia risk assessments. Anesthesia Type Anesthesia Type: General History Source History Obtained from:: Patient and Chart Anesthesia Focused Assessment* Temperature: 97.3 F Pulse Rate: 66 Blood Pressure: 141/54 Respiratory Rate: 18 Pulse Ox: 99 Oxygen Delivery Method: Room Air Airway Assessment Mouth opens: >3 cm Mallampati Score: I Teeth Condition: Dentures (Full dentures are out.) Neck Range of motion (ROM): Full ROM Focused Labs Anesthesia Preop lab: CBC WBC 7.2 K/mm3 (4.4-11.0) 10/29/23 13:45 RBC 3.65 M/mm3 (4.6-6.2) L 10/29/23 13:45 Hgb 11.5 g/dL (13.0-16.5) L 10/29/23 13:45 Hct 35.0 % (40-54) L 10/29/23 13:45 Plt Count 231 K/mm3 (150-450) 10/29/23 13:45 CHEMISTRY Potassium 4.1 mmol/L (3.5-5.1) 10/29/23 13:45 Sodium 143 mmol/L (136-145) 10/29/23 13:45 Magnesium 2.3 mg/dL (1.6-2.6) 11/15/21 07:30 Phosphorus 2.5 mg/dL (2.5-4.9) 11/15/21 07:30 BUN 22 mg/dL (7-18) H 10/29/23 13:45 Creatinine 0.84 mg/dL (0.70-1.30) 10/29/23 13:45 Glucose 96 mg/dL (74-106) 10/29/23 13:45 TSH 0.716 uIU/mL (0.358-3.740) 10/29/23 13:44 COAG PT 17.7 SECONDS (11.7-14.9) H 10/29/23 13:44 Pre-Assessment Diagnosis/Proposed Procedure Planned Operative Procedure(s): (R) right Carotid Endarterectomy Anesthesia History Anesthesia History - engineering lab technician: Anesthesia History - engineering lab technician Hx Hospitalization Yes: 03/2022 HEART CATH 10/22/23 11:14 Any Problems With Anesthesia No 10/22/23 11:14 Cholinesterase deficiency No 10/22/23 11:14 You/Your Family Experience No 10/22/23 11:14 fever (hyperthermia) with Relationship Recent Exposure to Contagious No 11/09/23 11:28 Disease Does patient have nerve No 10/22/23 11:14 stimulator Patient instructed to have device shut off --Does patient have Pacemaker No 11/09/23 11:28 or ICD? When Was Last Pacemaker Check QUESTION #4 FULL TEXT: You/Your Family Experience fever (hyperthermia) with Anesthesia Last Oral Intake Last Oral intake: Last Oral Intake NPO since 00:00 11/09/23 11:28 Meds taken in AM with sips of Yes 11/09/23 11:28 water? Meds patient instructed to take am of surgery PONV PONV - engineering lab technician: PONV - engineering lab technician Female No 10/22/23 11:14 HX of Motion Sickness No 10/22/23 11:14 HX of N/V After Surgery No 10/22/23 11:14 Non-Smoker Yes 10/22/23 11:14 Duration of Surgery greater Yes 10/22/23 11:14 than 60 minutes Number of Risk Factors 2 10/22/23 11:14 PONV Score Moderate Risk 10/22/23 11:14 Height & Weight Height & Weight: Anesthesia: Height & Weight Height 5 ft 9 in 11/09/23 11:28 Weight: 73.028 kg 11/09/23 11:28 Body Mass Index (BMI) 23.8 11/09/23 11:28 Respiratory Assessment Respiratory Assessment - engineering lab technician: Respiratory Tract Infection Hx - engineering lab technician Hx Respiratory Tract Infection No 10/22/23 11:14 STOP Sleep Apnea STOP Sleep Apnea - engineering lab technician: STOP Sleep Apnea - engineering lab technician Hx Hypertension Yes: per pt, controlled on 10/22/23 11:14 meds Hx Sleep Apnea No 10/22/23 11:14 CPAP BIPAP Do you snore loudly (louder No 10/22/23 11:14 than talking or can be heard Do you often feel tired/ No 10/22/23 11:14 fatigued/ sleepy during daytime? Has anyone observed you stop No 10/22/23 11:14 breathing during sleep? STOP Results Negative 10/22/23 11:14 QUESTION #5 FULL TEXT : Do you snore loudly (louder than talking or can be heard through closed doors)? Tobacco Use History Tobacco Use History - engineering lab technician: Tobacco Use History - engineering lab technician Tobacco Use Smoking Status Former smoker 10/22/23 11:14 Hx Tobacco Use No 10/22/23 11:14 Years Smoking Packs Smoked per Day Smoking Cessation Date was No - quit smoking greater 10/22/23 11:14 within the last 15 years than 15 years ago Hx Smoking Cessation Date 03/16/95 10/22/23 11:14 Hx Smoking Cessation No 10/22/23 11:14 Counseling Hematologic Medial History Hematologic Hx - engineering lab technician: Hematologic Medical Hx - catering driver Hx of Blood Transfusion No 10/22/23 11:14 Hx of Transfusion in last 3 No 10/22/23 11:14 Months Date of Last Transfusion (if within last 3 months) Ever experience any problems No 10/22/23 11:14 with transfusion(s)? Specify any problems Hx of Preganancy in last 3 N/A 10/22/23 11:14 Months Nurse Filling Out Transfusion NBUCHER 10/22/23 11:14 & Questions: Date: 10/22/23 10/22/23 11:14 Time: 11:16 10/22/23 11:14 Patient unable to answer at this time (ie. confused, unrespo /Reproduction History /Reproductive History - engineering lab technician: /Reproductive Hx- engineering lab technician Hx Now Gestational Age (in weeks): EDC: Hx Hx Para Hx Section SAB Active Medications Active Medications: Current Medications Generic Name Dose Route Start Last Admin Trade Name Freq PRN Reason Stop Dose Admin Cefazolin Sodium 2 gm/ Sodium 110 mls @ 150 mls/hr 11/09/23 12:55 Chloride IV 11/09/23 13:38 PREOP ONE Lactated Ringer's 1,000 mls @ 15 mls/hr 11/09/23 11:00 11/09/23 11:23 IV 15 mls/hr .Q48H KHRIS Administration Sodium Chloride 500 mls @ 0 mls/hr 11/09/23 11:30 IV .Q0M KHRIS KVO PFSH Medical History Thyroid disease High cholesterol Back pain Former smoker CPAP (continuous positive airway pressure) dependence Sleep apnea Emphysema, unspecified History of pain when walking History of edema History of echocardiogram History of atrial fibrillation Primary malignant neoplasm of prostate with high risk of recurrence due to Emmet score of 8 to 10 and PSA greater than 20 Nocturia Spermatocele of epididymis Prostate cancer Dyslipidemia 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 Bilateral lower extremity edema Carotid artery disease Peripheral arterial disease Paroxysmal atrial fibrillation Claudication of both lower extremities Aortic valve stenosis Bradycardia manager long term care current use of amiodarone Phimosis Hypothyroidism Encounter for circumcision CAD (coronary artery disease) Wears hearing aid Wears glasses Wears dentures Cancer Ambulates with cane Gout Easy bruising Excessive bleeding History of hiatal hernia Gastric reflux Former smoker Shortness of breath on exertion Leg cramps History of heart attack History of stress test Cardiology follow-up encounter History of irregular heartbeat Chest pain Abnormal stress test Abnormal computed tomography of cecum and terminal ileum Testicular discomfort Right inguinal hernia Peripheral neuritis of left foot Carotid stenosis, bilateral Essential hypertension Arthritis Old myocardial infarction Atherosclerotic heart disease of [place] coronary artery without angina pectoris COPD (chronic obstructive pulmonary disease) Hypertension Hyperlipidemia Home Medications ?Medication ?Instructions ?Recorded ?Last Taken ?Type clopidogrel 75 mg tablet (Plavix) 75 mg PO QDAY CLOTTING 05/22/17 11/08/23 History pantoprazole 40 mg tablet,delayed 40 mg PO QDAY GERD 05/22/17 11/08/23 History release albuterol sulfate 90 mcg/actuation 2 puff inhalation Q6H PRN Wheezing 07/20/17 11/09/21 History aerosol inhaler (ProAir HFA) cholecalciferol (vitamin D3) 25 3,000 unit PO DAILY VITAMIN 04/01/18 11/08/23 History mcg (1,000 unit) capsule tiotropium bromide 2.5 2 inh inhalation QAM COPD 01/23/21 11/09/23 History mcg/actuation mist for inhalation (Spiriva Respimat) apixaban 5 mg tablet (Eliquis) 5 mg PO BID BLOOD THINNER 04/07/23 11/08/23 History levothyroxine 75 mcg capsule 75 mcg PO DAILY HYPOTHYROID 04/14/23 11/09/23 08:30 History metoprolol tartrate 25 mg tablet 25 mg PO BID HEART 05/12/23 11/09/23 08:30 History furosemide 20 mg tablet 20 mg PO DAILY EDEMA #90 TABLETS 08/11/23 11/08/23 Rx potassium chloride 10 mEq 10 meq PO DAILY LOW POTASSIUM #90 08/11/23 11/08/23 Rx tablet,extended release TABLETS Handicap placard #1 ea 08/12/23 Unknown Rx nitroglycerin 0.4 mg sublingual 0.4 mg sublingual Q5-15M CHEST 08/12/23 Unknown Rx tablet PAIN #20 tabs allopurinol 300 mg tablet 300 mg PO QDAY GOUT #90 tabs 08/14/23 11/08/23 Rx atorvastatin 40 mg tablet 40 mg PO QHS HYPERLIPIDEMIA #90 09/29/23 11/08/23 Rx tabs lisinopril 20 mg tablet 20 mg PO BID HYPERTENSION 09/29/23 11/09/23 08:30 History nifedipine 90 mg tablet,extended 90 mg PO QDAY HYPERTENSION 09/29/23 11/09/23 08:30 History release 24 hr Allergy/AdvReac Type Severity Reaction Status Date / Time bee venom protein (honey Allergy Severe Anaphylaxis Verified 11/09/23 11:21 bee) (bee stings) venom-wasp protein Allergy Severe Anaphylaxis Verified 11/09/23 11:21 Family History Father CVA (cerebral vascular accident) Mother CAD (coronary artery disease) Hx of CABG CHF (congestive heart failure) S/P MVR (mitral valve replacement) Brother COPD (chronic obstructive pulmonary disease) Diabetes Cancer lung Grandfather Colon cancer Surgical History History of skin graft History of coronary artery stent placement History of left-sided carotid endarterectomy H/O hernia repair Hx of circumcision Hx of prostate biopsy (~03/23/23) History of left-sided carotid endarterectomy Status post carotid endarterectomy History of cardiac catheterization H/O local excision of skin lesion History of brain surgery History of left knee surgery History of tonsillectomy Postsurgical percutaneous transluminal coronary angioplasty (PTCA) status (03/21/22) Presence of stent in coronary artery (~01/22/11) Social History Smoking Status: Former smoker how long ago did patient quit smokin alcohol intake: never substance use type: does not use caffeine: Yes (3 servings per day) what type of physical activity do you participate in: walking frequency: daily Review of Systems (Anesthesia) ROS Narrative System reviewed and no additional complaints, except as documented.
--- NOTE | 2023-11-09 13:50 | PCM.HP.BLA ---
History and Physical Allergies venom-wasp protein Allergy (Severe, Verified 10/14/23 13:04) Anaphylaxis Medications ?Medication ?Instructions ?Recorded ?Confirmed ?Type clopidogrel 75 mg tablet (Plavix) 75 mg PO QDAY CLOTTING 05/22/17 10/14/23 History pantoprazole 40 mg tablet,delayed 40 mg PO QDAY GERD 05/22/17 10/14/23 History release albuterol sulfate 90 mcg/actuation 2 puff inhalation Q6H PRN Wheezing 07/20/17 10/14/23 History aerosol inhaler (ProAir HFA) cholecalciferol (vitamin D3) 25 3,000 unit PO DAILY VITAMIN 04/01/18 10/14/23 History mcg (1,000 unit) capsule tiotropium bromide 2.5 2 inh inhalation QAM COPD 01/23/21 10/14/23 History mcg/actuation mist for inhalation (Spiriva Respimat) apixaban 5 mg tablet (Eliquis) 5 mg PO BID 04/07/23 10/14/23 History levothyroxine 75 mcg capsule 75 mcg PO DAILY 04/14/23 10/14/23 History metoprolol tartrate 25 mg tablet 25 mg PO BID 05/12/23 10/14/23 History furosemide 20 mg tablet 20 mg PO DAILY #90 TABLETS 08/11/23 10/14/23 Rx potassium chloride 10 mEq 10 meq PO DAILY #90 TABLETS 08/11/23 10/14/23 Rx tablet,extended release Handicap placard #1 ea 08/12/23 10/14/23 Rx nitroglycerin 0.4 mg sublingual 0.4 mg sublingual Q5-15M #20 tabs 08/12/23 10/14/23 Rx tablet allopurinol 300 mg tablet 300 mg PO QDAY GOUT #90 tabs 08/14/23 10/14/23 Rx atorvastatin 40 mg tablet 40 mg PO QHS #90 tabs 09/29/23 10/14/23 Rx lisinopril 20 mg tablet 20 mg PO BID 09/29/23 10/14/23 History nifedipine 90 mg tablet,extended 90 mg PO QDAY 09/29/23 10/14/23 History release 24 hr Have you fallen in the past year?: No PFSH Medical History Peripheral neuritis of left foot Right inguinal hernia Testicular discomfort Abnormal computed tomography of cecum and terminal ileum Abnormal stress test Encounter for circumcision Hypothyroidism senior care current use of amiodarone Bradycardia Aortic valve stenosis Claudication of both lower extremities Paroxysmal atrial fibrillation Peripheral arterial disease Carotid artery disease Bilateral lower extremity edema 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 Dyslipidemia Prostate cancer Primary malignant neoplasm of prostate with high risk of recurrence due to Yaya score of 8 to 10 and PSA greater than 20 Thyroid disease High cholesterol Back pain Former smoker CPAP (continuous positive airway pressure) dependence Sleep apnea Emphysema, unspecified History of pain when walking History of edema History of echocardiogram History of atrial fibrillation Nocturia Spermatocele of epididymis Phimosis CAD (coronary artery disease) Wears hearing aid Wears glasses Wears dentures Cancer Ambulates with cane Gout Easy bruising Excessive bleeding History of hiatal hernia Gastric reflux Former smoker Shortness of breath on exertion Leg cramps History of heart attack History of stress test Cardiology follow-up encounter History of irregular heartbeat Chest pain Carotid stenosis, bilateral Essential hypertension Arthritis Old myocardial infarction Atherosclerotic heart disease of [place] coronary artery without angina pectoris COPD (chronic obstructive pulmonary disease) Hypertension Hyperlipidemia Surgical History History of left-sided carotid endarterectomy History of coronary artery stent placement History of left-sided carotid endarterectomy H/O hernia repair Hx of circumcision Hx of prostate biopsy (~03/23/23) Status post carotid endarterectomy History of cardiac catheterization H/O local excision of skin lesion History of brain surgery History of left knee surgery History of tonsillectomy Postsurgical percutaneous transluminal coronary angioplasty (PTCA) status (03/21/22) Presence of stent in coronary artery (~01/22/11) Family History Father CVA (cerebral vascular accident)Mother CAD (coronary artery disease) Hx of CABG CHF (congestive heart failure) S/P MVR (mitral valve replacement)Brother COPD (chronic obstructive pulmonary disease) Diabetes Cancer lungGrandfather Colon cancer Social History Smoking Status: Former smoker how long ago did patient quit smokin alcohol intake: never substance use type: does not use caffeine: Yes (3 servings per day) what type of physical activity do you participate in: walking frequency: daily HPI HPI HPI: NIKKO BARAJAS, is a 78 M who presents to the office today for follow up of right carotid stenosis followed by serial duplex. He previously had a left CEA for asymptomatic stenosis in 2021. He has been doing well since his last visit overall. Was diagnosed with prostate CA, has completed radiation tx and is now on supervisor intermediates hormone tx. He denies any episodes of numbness/weakness/vision loss/speech difficulty. ROS General General: Yes weight change and fatigue; No appetite, colon cancer, breast cancer or weakness HEENT HEENT: No difficulty swallowing, eye injury, eye surgery, swollen glands or hoarseness Endo Endocrine: Yes thyroid disease; No diabetes mellitus, thyroid cancer, Hair loss, heat intolerance or cold intolerance Skin Skin: No rash or changing moles Musc Musculoskeletal: Yes back problems, arthritis, gout and joint pain; No rheumatoid arthritis Cardio Cardiovascular: Yes heart disease, atrial fibrillation, high blood pressure, heart stent, palpitations and shortness of breat with exertion; No murmur, pacemaker, heart attack or chest pain Psych Psychiatric: No depression, anxiety or hearing voices Resp Respiratory: No shortness of breath, Yes sleep apnea, No cough, Yes COPD, No asthma, Yes emphysema and No wheezing Gastro Gastrointestinal: No abdominal pain, No nausea or vomiting, Yes diarrhea, Yes constipation, No blood in stool, No acid reflux, No hemorrhoids, No ulcers, No gallbladder problem and No black,tarry stools Raúl Hematologic: Yes blood thinners, No blood disorders, No bleeding, No anemia and No blood clots Neuro Neurologic: No system reviewed and no additional complaints, except as documented, No as per HPI, No abnormal gait, No abnormal hearing, No abnormal movements, No abnormal speech, No behavioral changes, Yes burning sensations, No confusion, No convulsions, Yes disequilibrium, Yes dizziness, No localized weakness, No frequent falls, No headache(s), No lack of coordination, No loss of vision, No memory loss, Yes numbness, No other visual disturbances, Yes radicular pain, Yes restless legs, No sensory deficit, No syncope, Yes tingling, No tremor(s), No weakness and No other Exam Const General: cooperative, healthy appearing, comfortable, no acute distress and well developed Nutritional Appearance: well nourished Orientation: alert, awake and oriented x3 HENMT Head: normocephalic and atraumatic Ears: hearing grossly normal bilaterally Nose: external nose normal Eyes General: appearance normal, both eyes and all related structures EOM: EOM intact bilaterally Neck Neck: normal visual inspection, full ROM, no lymphadenopathy and trachea midline Thyroid: thyroid normal Lymphatic: no lymphadenopathy noted Resp Effort & Inspection: normal respiratory effort, able to speak in complete sentences, symmetric chest movement, no audible wheezes, not labored, no stridor and no use of accessory muscles Cardio Rate: regular rate Rhythm: regular rhythm Pulses: brachial pulses present and radial pulses present Skin General: no rashes or lesions noted and no erythema Wounds: no wounds Neuro Cranial Nerves: CN's II-XI intact bilaterally and EOM intact bilaterally Speech: speech normal Gait: normal gait Motor: strength 5/5 throughout Sensory Exam: no sensory deficits noted Psych Appearance: grossly normal and well kempt Mental Status: mental status grossly normal Mood: congruent mood Speech and Movement: speech and movement normal Thought Content: normal Judgment: judgment good Coding Level of Care Code Off vis,est,level 3 Diagnoses Asymptomatic stenosis of right carotid artery I65.21 Assessment and Plan Assessment and Plan (1) Asymptomatic stenosis of right carotid artery: Status: Chronic Plan: -right CEA
[2023-11-09] MEDS: Cefazolin 2 GM in 0.9% Normal Saline (100mL Bag) 100 ML IV (13:59)
[2023-11-09] MEDS: Heparin Injection (Vial) 5,000 UNIT/ML VIAL 5000 UNIT (14:34)
[2023-11-09] MEDS: Bupivacaine Mpf 0.5% 30 ML VIAL (16:52)
--- NOTE | 2023-11-09 16:54 | PCM.OPRPT ---
Report of Operation Date of Procedure: 11/09/23 Pre-Operative Diagnosis: right carotid stenosis Post-Operative Diagnosis: same Surgery/Procedure Performed:: right carotid endarterectomy Surgeon: Blade Dahl Type of Anesthesia: General Drains: 19 Fr SUZY Estimated Blood Loss (mL): 25 Description of Procedure: HPI: Patient is a 78-year-old male with known right carotid artery stenosis which has worsened with recent surveillance imaging. He presents now for carotid endarterectomy. Description of procedure: Upon obtaining form consent and verification correct patient procedure site patient taken to the operating was placed under general esthesia. He was then positioned prepped and draped in usual sterile fashion and timeout was performed. Oblique incision was made along the anterior border the sternocleidomastoid but electrocautery was dissect down through subcutaneous tissue to the level of platysma. The platysma was then divided and self-retaining retractors put in position after which dissection was carried down to the sternocleidomastoid. This was freed along its anterior border along with the retracted posterior laterally exposing the carotid sheath. Sharp dissection was then used to dissect free the jugular vein with the facial vein identified, ligated with silk ties, and divided. The jugular vein was then retracted laterally exposing the carotid vessels. Sharp dissection was used dissect free the proximal common carotid artery with care taken to identify and protect the vagus nerve. A writing was placed vessel approximately and attention turned distally to the internal carotid artery. Sharp dissection used dissect free distally beyond any palpable or visible plaque with care taken to identify and protect the hypoglossal and vagus nerves. A right angle was used to place a vessel loop at the distal vessel and the patient heparinized allowed to circulate for 3 minutes. Subsequent heparin dosing was performed based on ACT results. Finally sharp dissection used to dissect free the external carotid artery and a right angle was placed vessel loop. Vessels were then occluded first the internal follow-up with common the external. Longitudinal arteriotomy was created with 11 blade on the distal common carotid artery and extended Santos scissors onto the internal carotid artery beyond the area of plaque. A 12 [place] shunt was then placed first distally into the internal carotid artery allowed to backbleed before placing proximally in the common carotid artery. The shunt was interrogated Doppler and found to be pain with low resistance signal. We then performed our endarterectomy with a freer elevator with satisfactory endpoint distally on the internal carotid artery and eversion endarterectomy of the external carotid artery. The distal endpoint was intact with 7-0 Prolene interrupted sutures in the lumen flushed with heparinized saline to clear of debris. A bovine pericardial patch was then secured to the position using a 6-0 Prolene running fashion. Podoplanin suture line the shunt was removed and the vessel was backbled. After completing the suture line the internal carotid artery was allowed to backbleed into the carotid bifurcation then it was reoccluded as origin. Clamps were then removed from the common and the external carotid artery along 10 heartbeats of antegrade flow to flush into the external carotid artery before reestablishing antegrade flow into the internal carotid artery. After completing the suture line and clamps released satisfactory stasis was noted. Heparin was reversed with protamine and the incision inspected hemostasis. Floseal topical hemostatic was applied and a 19 [place] SUZY was placed via separate stab incision. The incision was then closed with 2-0 Vicryl, 3-0 Vicryl, 4 Monocryl and Dermabond for the skin. At the conclusion the case the patient awakened anesthesia moving all extremities to command. He is taken recovery room with anticipated mission to the intensive care unit for hemodynamic and neurologic monitoring.
--- NOTE | 2023-11-09 17:13 | PCM.POST.ANE ---
Anesthesia: Postop Eval I Current Vital Signs Temperature: 98.4 F Pulse Rate: 72 Blood Pressure: 126/75 Respiratory Rate: 16 Pulse Ox: 92 Oxygen Delivery Method: Nasal Cannula Oxygen Flow Rate (L/min): 2 Assessment Airway patent: Yes Spontaneous unlabored respirations: Yes Mental status: Awake and Calm nausea: No Vomiting: No Anesthesia Complication: No Fluid Hydration Crystalloid volume administer (ml): 1,500 Total IV fluid infused: 1,500 Progress Note Anesthesia document: Postop Eval 1 completed: Yes
[2023-11-09 17:15] LABS: ACT Activated Clotting Time 147 sec (74-137)
[2023-11-09 17:15] LABS: ACT Activated Clotting Time 220 sec (74-137)
[2023-11-09 17:15] LABS: ACT Activated Clotting Time 250 sec (74-137)
--- NOTE | 2023-11-09 17:30 | POSTOPAN2_ITS ---
Anesthesia Postop Eval I Sum Postop Eval Completion status Anesthesia document: Postop Eval 1 completed: Yes Anesthesia Postop Eval I Summary Anesthesia Postop Eval I Summary: Anesthesia Postop Eval I: Assessment Summary Airway patent Yes 11/09/23 17:17 OFFICE EQUIPMENT MECHANIC.MOI Spontaneous unlabored Yes 11/09/23 17:17 OFFICE EQUIPMENT MECHANIC.OT respirations Mental status Awake,Calm 11/09/23 17:17 OFFICE EQUIPMENT MECHANIC.MDOT nausea No 11/09/23 17:17 OFFICE EQUIPMENT MECHANIC.MDOT Vomiting No 11/09/23 17:17 OFFICE EQUIPMENT MECHANIC.MDOT Anesthesia Postop Eval I: Fluid Summary Crystalloid volume administer 1,500 11/09/23 17:17 OFFICE EQUIPMENT MECHANIC.MDOT (ml) Colloids volume administered ( ml) Blood Product volume administered (ml) Total IV fluid infused 1,500 11/09/23 17:17 OFFICE EQUIPMENT MECHANIC.MOI Anesthesia Postop Eval I: Summary Notes Anesthesia Complication No 11/09/23 17:17 OFFICE EQUIPMENT MECHANIC.OT Anesthesia Complication Comment: Post-operative progress note Anesthesia: Postop Eval II Evaluation Mental status: Awake and Calm Pain Level: 1 nausea: No Vomiting: No
--- NOTE | 2023-11-09 17:30 | PCM.POSTANE2 ---
Anesthesia Postop Eval I Sum Postop Eval Completion status Anesthesia document: Postop Eval 1 completed: Yes Anesthesia Postop Eval I Summary Anesthesia Postop Eval I Summary: Anesthesia Postop Eval I: Assessment Summary Airway patent Yes 11/09/23 17:17 FUTURES [email or web address] Spontaneous unlabored Yes 11/09/23 17:17 FUTURES TRADER.OT respirations Mental status Awake,Calm 11/09/23 17:17 FUTURES TRADER.MDOT nausea No 11/09/23 17:17 FUTURES TRADER.MDOT Vomiting No 11/09/23 17:17 FUTURES [email or web address].MDOT Anesthesia Postop Eval I: Fluid Summary Crystalloid volume administer 1,500 11/09/23 17:17 FUTURES TRADER.MDOT (ml) Colloids volume administered ( ml) Blood Product volume administered (ml) Total IV fluid infused 1,500 11/09/23 17:17 FUTURES [email or web address].MOI Anesthesia Postop Eval I: Summary Notes Anesthesia Complication No 11/09/23 17:17 FUTURES TRADER.OT Anesthesia Complication Comment: Post-operative progress note Anesthesia: Postop Eval II Evaluation Mental status: Awake and Calm Pain Level: 1 nausea: No Vomiting: No
[2023-11-09] MEDS: 0.45% Normal Saline 1,000 ML 75 ML IV (18:47)
[2023-11-09] MEDS: oxyCODONE 5 MG Tablet PO (18:54)
[2023-11-09] MEDS: Atorvastatin Calcium 40 MG Tablet PO (21:19)
[2023-11-09] MEDS: Acetaminophen 500 MG Tablet 1000 MG PO (21:19)
[2023-11-09] MEDS: Cefazolin 1 GM/50 ML BAG IV (21:21)
[2023-11-10] VITALS (19 sets, daily range): BP systolic 101–149; BP diastolic 38–77; PULSE 51–71; RESP 11–16; TEMP 36.1–36.6; O2SAT 91–98; BMI 24.5
[2023-11-10 02:23] LABS: Absolute Lymphocyte Count 0.43 X10^3/uL (0.83-4.51); Absolute Neutrophil Count 5.5 X10^3/uL (2.0-7.7); Hematocrit 28.2 % (40-54); Hemoglobin 9.5 g/dL (13.0-16.5); Lymphocyte # 0.43 X10^3/ul (0.83-4.51); Lymphocyte % 7.1 % (19-41); Mean Corp Hgb Conc 33.7 g/dL (32-36); Mean Corpuscular Hgb 31.3 pg (27.0-32.0); Mean Corpuscular Volume 92.8 fL (80-94); Mean Platelet Vol. 10.5 fl (6.2-12.0); Monocyte# 0.16 X10^3/uL; Monocyte% 2.6 % (0-10); NRBC Flagged by Analyzer 0 % (0-5); Neutrophil # 5.48 X10^3/uL (2.7-7.7); POSITIVE DIFFERENTIAL YES; Platelet Count 144 K/mm3 (150-450); RBC Distribution Width CV 13.3 % (11.6-14.6); RBC Distribution Width SD 44.9 fl (35.1-43.9); Red Blood Count 3.04 M/mm3 (4.6-6.2); White Blood Count 6.1 K/mm3 (4.4-11.0)
[2023-11-10] MEDS: Cefazolin 1 GM/50 ML BAG IV (06:08)
[2023-11-10] MEDS: Levothyroxine 75 MCG Tablet PO (06:11)
[2023-11-10] MEDS: Acetaminophen 500 MG Tablet 1000 MG PO (06:11)
[2023-11-10] MEDS: Ipratropium 0.5 MG/2.5 ML SOLUTION INHALATION ×2 (06:44→12:26)
[2023-11-10] MEDS: Cholecalciferol (VIT D3) 25 MCG TABLET (1,000 UNITS) 75 MCG PO (09:28)
[2023-11-10] MEDS: Metoprolol Tartrate 25 MG Tablet PO (09:29)
[2023-11-10] MEDS: Clopidogrel Bisulfate 75 MG Tablet PO (09:29)
[2023-11-10] MEDS: Potassium Chloride Oral Tablet 10 MEQ PO (09:29)
[2023-11-10] MEDS: NIFEdipine 90 MG Tablet PO (09:29)
[2023-11-10] MEDS: Furosemide 20 MG Tablet PO (09:29)
[2023-11-10] MEDS: Pantoprazole Sodium 40 MG Tablet PO (09:29)
--- NOTE | 2023-11-10 09:40 | PCM.PN.SRG ---
Subjective Subjective Sergio was seen resting comfortably in bed. He reports he had a headache yesterday evening but this has resolved. He reports mild discomfort at the incision site. Denies any vision changes, hoarseness, weakness, sensory deficit. His blood pressures have been within an acceptable range. Objective Data Objective Data Vital Signs: Vital Signs Temp Pulse Resp BP Pulse Ox O2 Del Method O2 Flow Rate 97.4 F L 71 15 148/58 H 93 Room Air 2 11/10/23 08:22 11/10/23 09:29 11/10/23 09:00 11/10/23 09:29 11/10/23 09:00 11/10/23 09:00 11/10/23 07:00 Oxygen Flow Rate (L/min) 2 Oxygen Delivery Method Room Air Weight: 166 lb 3.657 oz Body Mass Index (BMI) 24.5 Intake & Output: Intake and Output for Last 24 Hours 11/08/23 11/09/23 11/10/23 23:59 23:59 23:59 Intake Total 1273 / 1273 1275 / 1275 Output Total 650 / 650 470 / 470 Balance 623 / 623 805 / 805 Lab / Micro Data 11/10/23 02:15 10/29/23 13:45 Labs: Laboratory Results - last 24 hr 11/09/23 14:16: Activated Clotting Time 147 H 11/09/23 15:10: Activated Clotting Time 250 H 11/09/23 15:48: Activated Clotting Time 220 H 11/10/23 02:15: WBC 6.1, RBC 3.04 L, Hgb 9.5 L, Hct 28.2 L, MCV 92.8, MCH 31.3, MCHC 33.7, RDW Std Deviation 44.9 H, RDW Coeff of Esther 13.3, Plt Count 144 L, MPV 10.5, Immature Gran % (Auto) 0.300, Neut % (Auto) 90.0 H, Lymph % (Auto) 7.1 L, [place] % (Auto) 2.6, Eos % (Auto) 0.0, Baso % (Auto) 0.0, Absolute Neuts (auto) 5.5, Absolute Lymphs (auto) 0.43 L, Nucleated RBC % 0 Physical Exam Const alert, oriented x3, no apparent distress and healthy appearing General Appearance: cooperative; Negative for combative or lethargic Orientation / Consciousness: awake Exam Limitations: no limitations HEENT Head and Scalp: normocephalic and atraumatic Eyes EOMs intact bilaterally General Eye: normal appearance of both eyes Neck Neck Narrative: Inc C/D/I, no hematoma or erythema SUZY drain with serosanguineous output General: trachea midline Resp normal respiratory effort and no use of accessory muscles Effort and Inspection: Negative for labored, stridor or audible wheezes Cardio regular rate and regular rhythm Back/Spine Cervical Spine: cervical ROM normal Skin no rashes or lesions noted Neuro oriented x3, CN's II-XII intact bilaterally, no focal motor deficits and no sensory deficits noted Psych thought process normal, cooperative, affect normal, speech normal and activity/motor behavior normal Assessment & Plan Assessment/Plan (1) Asymptomatic stenosis of right carotid artery: PLAN: Plan Patient is status post right CEA POD#1. He has been hemodynamically and neurologically stable. SUZY drain was removed and patient tolerated this well. Incision site is satisfactory in appearance, no evidence of hematoma. Okay to discontinue arterial line. Will progress to regular diet as tolerated. Will have him ambulate with nursing assistance or PT. Anticipate discharge this afternoon.
--- NOTE | 2023-11-10 10:05 | CASEMGMT ---
RN CM Face to Face with patient for initial transition planning/care coordination assessment. RN CM introduced self and role at [facility]. Patient lying in bed, alert and oriented. Patient willing to participate in assessment and is able to answer all questions appropriately. Care providers, pharmacy, and demographics verified. Strata: 2 PCP: [facility] Specialists: Nabila, vascular; Earnestine, radiology oncology; Tom, [facility] P[facility]; Noel, urologist; Preferred Pharmacy: [facility] Insurance: [facility], [place] Prescription Benefit: yes Living Will/HPOA: yes, Nandini Clifford LNOK: Living Arrangements: Patient lives with in a single story home with 5 step with railing or ramp to enter the home. Patient states he is independent at home. Transportation: self, DME/HHC: Patient has shower chair, cane, rollator, and cpap at home. No previous HHC or SNF Patient wishes to discharge home, denies need for home health at this time. Patient states he has no further needs or concerns at this time. CM to follow for discharge planning needs that may arise. Disposition Plan: Patient to discharge home with family support and follow-up plans in place. Jeanine DOMÍNGUEZ, RN, CM
[2023-11-10] MEDS: Allopurinol 300 MG Tablet PO (10:37)
--- NOTE | 2023-11-10 13:00 | PCM.DC.SUM ---
Providers Date of Admission: 11/09/23 Primary Care Physician: Dr. Humphrey Maher, DO Reason For Visit: right Carotid Endarterectomy Diagnosis Discharge Diagnosis (1) Asymptomatic stenosis of right carotid artery: Status: Chronic Code(s): I65.21 - Occlusion and stenosis of right carotid artery Plan Patient is status post right CEA POD#1. He has been hemodynamically and neurologically stable. SUZY drain was removed and patient tolerated this well. Incision site is satisfactory in appearance, no evidence of hematoma. Okay to discontinue arterial line. Will progress to regular diet as tolerated. Will have him ambulate with nursing assistance or PT. Anticipate discharge this afternoon. Medications at Discharge Home Medications clopidogrel 75 mg tablet (Plavix) 75 mg PO QDAY CLOTTING 05/22/17 pantoprazole 40 mg tablet,delayed release 40 mg PO QDAY GERD 05/22/17 albuterol sulfate 90 mcg/actuation aerosol inhaler (ProAir HFA) 2 puff inhalation Q6H PRN Wheezing 07/20/17 cholecalciferol (vitamin D3) 25 mcg (1,000 unit) capsule 3,000 unit PO DAILY VITAMIN 04/01/18 tiotropium bromide 2.5 mcg/actuation mist for inhalation (Spiriva Respimat) 2 inh inhalation QAM COPD 01/23/21 apixaban 5 mg tablet (Eliquis) 5 mg PO BID BLOOD THINNER 04/07/23 levothyroxine 75 mcg capsule 75 mcg PO DAILY HYPOTHYROID 04/14/23 metoprolol tartrate 25 mg tablet 25 mg PO BID HEART 05/12/23 furosemide 20 mg tablet 20 mg PO DAILY EDEMA #90 TABLETS 08/11/23 potassium chloride 10 mEq tablet,extended release 10 meq PO DAILY LOW POTASSIUM #90 TABLETS 08/11/23 Handicap placard #1 ea 08/12/23 nitroglycerin 0.4 mg sublingual tablet 0.4 mg sublingual Q5-15M CHEST PAIN #20 tabs 08/12/23 allopurinol 300 mg tablet 300 mg PO QDAY GOUT #90 tabs 08/14/23 atorvastatin 40 mg tablet 40 mg PO QHS HYPERLIPIDEMIA #90 tabs 09/29/23 lisinopril 20 mg tablet 20 mg PO BID HYPERTENSION 09/29/23 nifedipine 90 mg tablet,extended release 24 hr 90 mg PO QDAY HYPERTENSION 09/29/23 oxycodone 5 mg tablet 5 mg PO Q8H PRN PRN Pain Score 4-10 3 days #9 tabs 11/10/23 Hospital Course Summary of Care Provided Hospital Course: Mr. Sergio Clifford is a 78 y/o male who underwent planned R CEA on 11/09/23. He tolerated the procedure well. Postoperatively, he was routinely admitted to the ICU for hemodynamic and neurologic monitoring. He has remained both hemodynamically and neurologically stable throughout his admission. The SUZY drain was removed today without issue. The incision site is satisfactory in appearance. He is tolerating a normal diet, voiding without difficulty, ambulating without issue, and his pain is well controlled. He is discharged to home in medically stable condition. Weight / BMI Weight Weight: 166 lb 3.657 oz Body Mass Index (BMI) 24.5 ABG / Lab / Microbiology Data 11/10/23 02:15 10/29/23 13:45 Laboratory: Laboratory Results - last 24 hr 11/09/23 14:16: Activated Clotting Time 147 H 11/09/23 15:10: Activated Clotting Time 250 H 11/09/23 15:48: Activated Clotting Time 220 H 11/10/23 02:15: WBC 6.1, RBC 3.04 L, Hgb 9.5 L, Hct 28.2 L, MCV 92.8, MCH 31.3, MCHC 33.7, RDW Std Deviation 44.9 H, RDW Coeff of Esther 13.3, Plt Count 144 L, MPV 10.5, Immature Gran % (Auto) 0.300, Neut % (Auto) 90.0 H, Lymph % (Auto) 7.1 L, [place] % (Auto) 2.6, Eos % (Auto) 0.0, Baso % (Auto) 0.0, Absolute Neuts (auto) 5.5, Absolute Lymphs (auto) 0.43 L, Nucleated RBC % 0 D/C Instructions May shower in (days): 1 Weight Bearing Status: Weight bearing as tolerated Lifting Restricted to (Lbs): 20 Lifting Restrictions: Do not lift greater than 20 pounds for 3 weeks Call your doctor if your incision/area has: Sudden Increased Bleeding, Increased Pain/ Swelling and Foul Smelling Discharge Call your doctor if you observe: Fever of 101 or Higher and Uncontrolled pain Remove Dressing in: 1 day Additional Instructions: You have a small bandage over the site from which the surgical drain was removed. You may remove this bandage tomorrow. As long as there is no residual drainage, you may leave this open to air. If you do notice some continued drainage, you may re-cover with a Band-Aid. Your incision site is covered with surgical glue which will continue to protect it. The surgical glue will peel/flake off on its own over the next few weeks. Please do not pick at it. You may shower tomorrow. It is okay for soap and water to rinse over the incision site, pat to dry. Do not submerge the incision site in water such as to take a bath or go swimming etc. for 3 weeks. Do not lift greater than 20 pounds for 3 weeks. Otherwise, please continue with activity as tolerated. Do not drive until you can turn your head well enough to safely check your blind spots. I have prescribed a prescription pain medication oxycodone 5 mg tablets to be taken by mouth every 8 hours as needed for pain. Do not take in combination with any other prescription pain medications. You may take this in addition to Tylenol or ibuprofen as allowed. You are scheduled for follow-up in the office on 11/26/2023. If you need to change this appointment or have any other questions or concerns then please contact the office at [phone]. Meaningful Use Info Meaningful Use Meaningful Use Diagnoses (Choose all that apply): None applicable Ischemic Stroke Statin Dosing Therapy Reference: STATIN DOSE THERAPY REFERENCE: * Patients > 75 years receive moderate or high dose statin therapy. * Patients 75 years or YOUNGER should receive HIGH intensity statin dose unless contraindicated. You will be required to document reason for non-treatment if statin daily dose does not meet guidelines. HIGH DOSE STATIN THERAPY DAILY Atorvastatin > than or = to 40 mg Rosuvastatin > than or = to 20 mg Amlodipine + Atorvastatin > than or = to 2.5/40 mg Ezetimibe + Simvastatin 10/80 mg Simvastatin 80mg Discharge Plan Admission Admit Date/Time: 11/09/23 16:48 Attending Provider: Blade Dahl Primary Care Provider: Humphrey Maher Instructions Additional Instructions / Restrictions: You have a small bandage over the site from which the surgical drain was removed. You may remove this bandage tomorrow. As long as there is no residual drainage, you may leave this open to air. If you do notice some continued drainage, you may re-cover with a Band-Aid. Your incision site is covered with surgical glue which will continue to protect it. The surgical glue will peel/flake off on its own over the next few weeks. Please do not pick at it. You may shower tomorrow. It is okay for soap and water to rinse over the incision site, pat to dry. Do not submerge the incision site in water such as to take a bath or go swimming etc. for 3 weeks. Do not lift greater than 20 pounds for 3 weeks. Otherwise, please continue with activity as tolerated. Do not drive until you can turn your head well enough to safely check your blind spots. I have prescribed a prescription pain medication oxycodone 5 mg tablets to be taken by mouth every 8 hours as needed for pain. Do not take in combination with any other prescription pain medications. You may take this in addition to Tylenol or ibuprofen as allowed. You are scheduled for follow-up in the office on 11/26/2023. If you need to change this appointment or have any other questions or concerns then please contact the office at [phone]. Discharge Orders/Prescriptions Prescriptions: New oxycodone 5 mg Tablet 5 mg PO Q8H PRN PRN (Reason: Pain Score 4-10) 3 Days Qty: 9 0RF Continued albuterol sulfate [ProAir HFA] 90 mcg/actuation HFA aerosol inhaler 2 puff INHALATION Q6H PRN (Reason: Wheezing) cholecalciferol (vitamin D3) 1,000 unit capsule 3,000 unit PO DAILY Spiriva Respimat 2.5 mcg/actuation mist 2 inh inhalation QAM levothyroxine 75 mcg capsule 75 mcg PO DAILY nitroglycerin 0.4 mg tablet, sublingual 0.4 mg sublingual Q5-15M Qty: 20 4RF (DME) Handicap placard See Rx Instructions .Route .MEDSUPPLY Qty: 1 0RF Rx Instructions: Duration 5 years, Diagnosis CAD, Prostate CA lisinopril 20 mg tablet 20 mg PO BID nifedipine 90 mg tablet extended release 24hr 90 mg PO QDAY atorvastatin 40 mg tablet 40 mg PO QHS Qty: 90 3RF metoprolol tartrate 25 mg tablet 25 mg PO BID Patient Comments: TAKE 1 TABLET BY MOUTH TWICE A DAY FOR 90 DAYS pantoprazole 40 mg tablet,delayed release (DR/EC) 40 mg PO QDAY clopidogrel [Plavix] 75 mg tablet 75 mg PO QDAY Patient Comments: SEE DR. GALLEGO furosemide 20 mg tablet 20 mg PO DAILY Qty: 90 3RF potassium chloride 10 mEq tablet extended release 10 meq PO DAILY Qty: 90 3RF allopurinol 300 mg tablet 300 mg PO QDAY Qty: 90 1RF Held Eliquis 5 mg tablet 5 mg PO BID Hold Instructions: Resume on 11/11/23. Resume 11/11/23 evening Other Ambulatory Orders: 12 Lead EKG (Routine) Timeframe: 20231029 Location: None Selected Ordered By: Dr. Blade Goldstein Referrals / Follow Up: Humphrey Maher DO [Primary Care Provider] - Disposition Disposition (needs filled in before D/C Order can be placed): Home, Self Care
== END 2023-11-10 14:10 | disposition home or self-care (01) | DRG 39 ==
PROVIDERS: Anesthesiology; Nurse Practitioner Family; Admitting Provider Surgery Trauma Surgery; PCP Family Medicine; Referring Provider Surgery Trauma Surgery; Visit Provider Surgery Trauma Surgery
PROC: 03CK0ZZ Extirpation of Matter from Right Internal Carotid Artery, Open Approach (ICD-10-PCS; CPT 35301; principal; 2023-11-09 12:35)
DX: I65.21 Occlusion and stenosis of right carotid artery (principal); E03.9 Hypothyroidism, unspecified; I10 Essential (primary) hypertension; I25.10 Atherosclerotic heart disease of native coronary artery without angina pectoris; E78.5 Hyperlipidemia, unspecified; I25.2 Old myocardial infarction; Z80.0 Family history of malignant neoplasm of digestive organs; Z87.891 Personal history of nicotine dependence; Z95.5 Presence of coronary angioplasty implant and graft; Z82.3 Family history of stroke; Z92.3 Personal history of irradiation; Z85.46 Personal history of malignant neoplasm of prostate
CPT/HCPCS: 80048; 80061; 80076; 84443; 85025; 85027; 85347; 85610; 85730; 88304; 88311; 93005; 94640; 94668; 94762; 99252; A4648; J7040; J7120; G0463; J2405

== ENCOUNTER → 2023-12-08 | Outpatient (CLI) | payer MEDICARE, OTHER, SELFPAY ==
[2022-07-02 06:43] VITALS: BMI 26.4
--- NOTE | 2023-12-08 12:33 | CDU_ITS ---
Reason For Study: s/p B/L CEA Rt. Velocities/BP Lt. Velocities/BP Prox CCA 75/12 cm/sec. Prox CCA 112/26 cm/sec. Mid CCA 91/18 cm/sec. Mid CCA 146/31 cm/sec. Dist CCA 74/14 cm/sec. Dist CCA 183/30 cm/sec. Prox ICA 77/11 cm/sec. Prox ICA 84/17 cm/sec. Mid ICA 97/26 cm/sec. Mid ICA 101/30 cm/sec. Dist ICA 122/36 cm/sec. Dist ICA 97/35 cm/sec. Rt. ICA/CCA = 1.3. Lt. ICA/CCA = 0.7. Prox ECA 142 cm/sec. Prox ECA 62 cm/sec. Rt. Vert. 79/20 cm/sec. Lt. Vert. 73/14 cm/sec. Right Extracranial There is heterogeneous, irregular atherosclerotic plaque noted in the right common carotid artery. There is intimal thickening but no significant atherosclerotic plaque noted in the right internal carotid artery. There is no significant atherosclerotic plaque noted in the right external carotid artery. Antegrade flow is noted in the right vertebral artery. Left Extracranial There is heterogeneous, irregular atherosclerotic plaque noted in the left common carotid artery. There is heterogeneous, smooth atherosclerotic plaque noted in the left internal carotid artery. There is intimal thickening but no significant atherosclerotic plaque noted in the left external carotid artery. Antegrade flow is noted in the left vertebral artery. Procedure Carotid Duplex [id number]. This is a Carotid Duplex examination using B-mode, color flow and specral Doppler. Exam performed in department. VL/Carotid Duplex Ultrasound Interpretation Summary Normal right extracranial internal carotid. Mild (<50%) stenosis left extracranial internal carotid. Patent and antegrade vertebrals bilaterally. Ordering Physician: Kayla Bar Referring Physician: Humphrey Maher Performed By: Lisa Saez, ARTUR, RVT
== END | disposition home or self-care (01) ==
LOC: CVS 12:32
PROVIDERS: PCP Family Medicine; Referring Provider Physician Assistant; Visit Provider Physician Assistant
DX: I65.23 Occlusion and stenosis of bilateral carotid arteries (principal); Z48.812 Encounter for surgical aftercare following surgery on the circulatory system
CPT/HCPCS: 93880

== ENCOUNTER → 2024-01-04 | Outpatient (CLI) | payer MEDICARE, OTHER, SELFPAY ==
[2022-07-02 06:43] VITALS: BMI 26.4
[2024-01-04 12:44] LABS: PSA,Total- Diagnostic 0.14 ng/mL (0.0-4.0)
== END | disposition home or self-care (01) ==
LOC: BIMLAB 10:53
PROVIDERS: PCP Family Medicine; Referring Provider Urology; Visit Provider Urology
DX: C61 Malignant neoplasm of prostate (principal)
CPT/HCPCS: 36415; 84153

== ENCOUNTER → 2024-02-02 | Outpatient (CLI) | payer MEDICARE, OTHER, SELFPAY ==
[2022-07-02 06:43] VITALS: BMI 26.4
[2024-02-02 12:12] LABS: Absolute Lymphocyte Count 0.96 X10^3/uL (0.83-4.51); Absolute Neutrophil Count 4.8 X10^3/uL (2.0-7.7); Basophil# 0.02 X10^3/uL; Basophil% 0.3 % (0-1); Eosinophil# 0.16 X10^3/uL; Eosinophils% 2.4 % (0-5); Hematocrit 29.3 % (40-54); Hemoglobin 9.5 g/dL (13.0-16.5); Lymphocyte # 0.96 X10^3/ul (0.83-4.51); Lymphocyte % 14.1 % (19-41); Mean Corp Hgb Conc 32.4 g/dL (32-36); Mean Corpuscular Hgb 31.6 pg (27.0-32.0); Mean Corpuscular Volume 97.3 fL (80-94); Monocyte# 0.77 X10^3/uL; Monocyte% 11.3 % (0-10); NRBC Flagged by Analyzer 0 % (0-5); Neutrophil # 4.84 X10^3/uL (2.7-7.7); Neutrophil % 71.3 % (47-70); Platelet Count 211 K/mm3 (150-450); RBC Distribution Width CV 14.8 % (11.6-14.6); Red Blood Count 3.01 M/mm3 (4.6-6.2); White Blood Count 6.8 K/mm3 (4.4-11.0)
[2024-02-02 12:19] LABS: Iron 66 ug/dL (65-175); Iron Binding Capacity,Total 259 ug/dL (250-450); PERCENT IRON SATURATION 25.5 % (15.0-55.0)
== END | disposition home or self-care (01) ==
LOC: BIMLAB 11:12
PROVIDERS: PCP Family Medicine; Visit Provider Family Medicine
DX: D64.9 Anemia, unspecified (principal)
CPT/HCPCS: 36415; 83540; 83550; 85025

== ENCOUNTER → 2024-03-10 | Outpatient (CLI) | payer MEDICARE, OTHER, SELFPAY ==
[2022-07-02 06:43] VITALS: BMI 26.4
[2024-03-10 15:08] LABS: Absolute Lymphocyte Count 1.17 X10^3/uL (0.83-4.51); Absolute Neutrophil Count 5.6 X10^3/uL (2.0-7.7); Basophil# 0.05 X10^3/uL; Basophil% 0.6 % (0-1); Eosinophil# 0.18 X10^3/uL; Eosinophils% 2.3 % (0-5); Hematocrit 35.6 % (40-54); Hemoglobin 11.2 g/dL (13.0-16.5); Lymphocyte # 1.17 X10^3/ul (0.83-4.51); Mean Corp Hgb Conc 31.5 g/dL (32-36); Mean Corpuscular Hgb 30.6 pg (27.0-32.0); Mean Corpuscular Volume 97.3 fL (80-94); Monocyte# 0.77 X10^3/uL; Monocyte% 9.9 % (0-10); NRBC Flagged by Analyzer 0 % (0-5); Neutrophil # 5.61 X10^3/uL (2.7-7.7); Neutrophil % 71.8 % (47-70); Platelet Count 241 K/mm3 (150-450); RBC Distribution Width CV 13.9 % (11.6-14.6); RBC Distribution Width SD 49.6 fl (35.1-43.9); Red Blood Count 3.66 M/mm3 (4.6-6.2); White Blood Count 7.8 K/mm3 (4.4-11.0)
== END | disposition home or self-care (01) ==
LOC: BIMLAB 12:17
PROVIDERS: PCP Family Medicine; Referring Provider Internal Medicine; Visit Provider Internal Medicine
DX: I10 Essential (primary) hypertension (principal)
CPT/HCPCS: 36415; 85025

== ENCOUNTER 2024-04-08 18:59 | Inpatient (IN) | payer MEDICARE, OTHER, SELFPAY ==
[2022-07-02 06:43] VITALS: BMI 26.4
[2024-04-08] VITALS (12 sets, daily range): BP systolic 96–113; BP diastolic 45–69; PULSE 77–145; RESP 14–20; TEMP 36.1–36.6; O2SAT 92–97; BMI 26.5; BMI 25.7
--- NOTE | 2024-04-08 19:39 | ED.VIS.DYS ---
HPI History of Present Illness Chief Complaint: Shortness of Breath [facility] Medical History Thyroid disease High cholesterol Back pain Former smoker CPAP (continuous positive airway pressure) dependence Sleep apnea Emphysema, unspecified History of pain when walking History of edema History of echocardiogram History of atrial fibrillation Primary malignant neoplasm of prostate with high risk of recurrence due to Yaya score of 8 to 10 and PSA greater than 20 Nocturia Spermatocele of epididymis Prostate cancer Dyslipidemia 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 Bilateral lower extremity edema Carotid artery disease Peripheral arterial disease Paroxysmal atrial fibrillation Claudication of both lower extremities Aortic valve stenosis Bradycardia senior living current use of amiodarone Phimosis Hypothyroidism Encounter for circumcision CAD (coronary artery disease) Wears hearing aid Wears glasses Wears dentures Cancer Ambulates with cane Gout Easy bruising Excessive bleeding History of hiatal hernia Gastric reflux Former smoker Shortness of breath on exertion Leg cramps History of heart attack History of stress test Cardiology follow-up encounter History of irregular heartbeat Chest pain Abnormal stress test Abnormal computed tomography of cecum and terminal ileum Testicular discomfort Right inguinal hernia Peripheral neuritis of left foot Carotid stenosis, bilateral Essential hypertension Arthritis Old myocardial infarction Atherosclerotic heart disease of [place] coronary artery without angina pectoris COPD (chronic obstructive pulmonary disease) Hypertension Hyperlipidemia Home Medications ?Medication ?Instructions ?Recorded ?Last Taken ?Type clopidogrel 75 mg tablet (Plavix) 75 mg PO QDAY CLOTTING 05/22/17 11/08/23 History pantoprazole 40 mg tablet,delayed 40 mg PO QDAY GERD 05/22/17 11/08/23 History release albuterol sulfate 90 mcg/actuation 2 puff inhalation Q6H PRN Wheezing 07/20/17 11/09/21 History aerosol inhaler (ProAir HFA) cholecalciferol (vitamin D3) 25 3,000 unit PO DAILY VITAMIN 04/01/18 11/08/23 History mcg (1,000 unit) capsule tiotropium bromide 2.5 2 inh inhalation QAM COPD 01/23/21 11/09/23 History mcg/actuation mist for inhalation (Spiriva Respimat) apixaban 5 mg tablet (Eliquis) 5 mg PO BID BLOOD THINNER 04/07/23 11/08/23 History levothyroxine 75 mcg capsule 75 mcg PO DAILY HYPOTHYROID 04/14/23 11/09/23 08:30 History furosemide 20 mg tablet 20 mg PO DAILY EDEMA #90 TABLETS 08/11/23 11/08/23 Rx potassium chloride 10 mEq 10 meq PO DAILY LOW POTASSIUM #90 08/11/23 11/08/23 Rx tablet,extended release TABLETS Handicap placard #1 ea 08/12/23 Unknown Rx nitroglycerin 0.4 mg sublingual 0.4 mg sublingual Q5-15M CHEST 08/12/23 Unknown Rx tablet PAIN #20 tabs atorvastatin 40 mg tablet 40 mg PO QHS HYPERLIPIDEMIA #90 09/29/23 11/08/23 Rx tabs metoprolol tartrate 25 mg tablet 25 mg PO BID #180 TABLETS 11/19/23 Unknown Rx ferrous sulfate 325 mg (65 mg 325 mg PO BID #90 tabs 02/02/24 Unknown Rx iron) tablet allopurinol 300 mg tablet 300 mg PO QDAY GOUT #90 tabs 02/23/24 Unknown Rx lisinopril 20 mg tablet 20 mg PO BID #180 TABLETS 03/17/24 Unknown Rx nifedipine 90 mg tablet,extended 90 mg PO QDAY HYPERTENSION #90 tabs 03/17/24 Unknown Rx release 24 hr Allergy/AdvReac Type Severity Reaction Status Date / Time bee venom protein (honey Allergy Severe Anaphylaxis Verified 04/08/24 18:59 bee) (bee stings) venom-wasp protein Allergy Severe Anaphylaxis Verified 04/08/24 18:59 Family History Father CVA (cerebral vascular accident) Mother CAD (coronary artery disease) Hx of CABG CHF (congestive heart failure) S/P MVR (mitral valve replacement) Brother COPD (chronic obstructive pulmonary disease) Diabetes Cancer lung Grandfather Colon cancer Surgical History History of skin graft History of coronary artery stent placement History of left-sided carotid endarterectomy H/O hernia repair Hx of circumcision Hx of prostate biopsy (~03/23/23) History of left-sided carotid endarterectomy Status post carotid endarterectomy History of cardiac catheterization H/O local excision of skin lesion History of brain surgery History of left knee surgery History of tonsillectomy Postsurgical percutaneous transluminal coronary angioplasty (PTCA) status (03/21/22) Presence of stent in coronary artery (~01/22/11) Social History (Updated 04/08/24 @ 23:[address] Luba Villatoro MD) household members: spouse Smoking Status: Former smoker how long ago did patient quit smokin alcohol intake: never substance use type: does not use caffeine: Yes (3 servings per day) what type of physical activity do you participate in: walking frequency: daily EXAM Physical Exam Const Vital Signs: 04/08/24 19:00 04/08/24 19:31 04/08/24 19:31 Temperature 96.9 F L 98 F Temperature Source Temporal Temporal Pulse Rate 77 130 H Respiratory Rate 18 20 H Respiratory Effort Short of Breath Labored Respiratory Depth Shallow Respiratory Pattern Tachypnea Blood Pressure 113/63 100/69 Blood Pressure Mean 79 79 Pulse Ox 93 92 Oxygen Delivery Method Room Air Room Air Room Air Oxygen Flow Rate (L/min) 92 04/08/24 20:21 04/08/24 21:00 04/08/24 21:43 Temperature Temperature Source Pulse Rate 136 H 138 H 140 H Respiratory Rate 16 Respiratory Effort Respiratory Depth Respiratory Pattern Blood Pressure 97/65 101/68 Blood Pressure Mean 75 79 Pulse Ox 97 Oxygen Delivery Method Nasal Cannula Oxygen Flow Rate (L/min) 2 04/08/24 21:48 04/08/24 21:55 Temperature 98 F Temperature Source Temporal Pulse Rate 145 H 145 H Respiratory Rate 18 Respiratory Effort Respiratory Depth Respiratory Pattern Blood Pressure 103/69 103/69 Blood Pressure Mean 80 80 Pulse Ox 94 Oxygen Delivery Method Oxygen Flow Rate (L/min) MDM MDM MDM Narrative Medical decision making narrative: HISTORY OF PRESENT ILLNESS: 78-year-old male presents concern for shortness of breath for the past week, worsening in last 3 days. Patient notes he has dyspnea on exertion, notes he feels chills but no fever. Notes a nonproductive cough. Denies hemoptysis assist. Notes slight lower extremity edema. Notes compliance with Eliquis. Denies any bleeding diathesis. Denies any vomiting or diarrhea. Denies any sick contacts The patient denies recent surgery in the last 4 weeks or immobilization in the last 3 days, denies previous diagnosis of DVT or PE, hemoptysis, unilateral leg swelling or malignancy with treatment the last 6 months or palliative. No estrogen use noted. REVIEW OF SYSTEMS: Pertinent positives: Shortness of breath, dyspnea of exertion, Pertinent negatives: Chest pain PHYSICAL EXAM: Nursing triage notes reviewed, Vital signs reviewed Constitutional: please see mdm HENT: MMM Eyes: Pupils equal round and reactive to light, Extraocular muscles intact Neck: No stridor, no JVD, full neck ROM Lungs: Clear to auscultation, slight expiratory wheezes noted bilaterally. No increased work of breathing, no conversational dyspnea, no accessory muscle use, no nasal flaring. No respiratory distress noted Heart: Regular rate and rhythm, No murmurs, No rubs and No gallops, 2+ distal pulses (radial, femoral, posterior tibial) in all extremities Abdomen: Soft, there is no tenderness, rigidity, rebound or guarding, no obvious peritoneal signs, no palpable pulsatile abdominal masses, no auscultated abdominal bruit : No CVAT Extremities: Slight edema in bilateral lower extremity Neuro: No new focal neurological deficits, cranial nerves II through XII intact, 5/5 strength in all present extremities. Intact sensation to light touch in all present extremities, 2+ reflexes bilateral patella tendons. Skin: No rash or lesions noted MEDICAL DECISION MAKING: Chief Complaint: Shortness of breath External records reviewed: Echocardiogram from October 2023 shows ejection fraction 55% Factors affecting care: Atrial fibrillation (on Eliquis), hyperlipidemia, peripheral artery disease, CAD status post stent, carotid artery stenosis status post carotid arterectomy, Social determinants of health: none History obtained from others: none Consults: Cardiology (Dr. Vance), internal medicine (Dr. Villatoro) [facility] Narrative: Patient was initially hemodynamically stable, afebrile and nontoxic-appearing. Patient saturating at 93% on room air which acceptable for COPD. Lungs with slight wheezing noted bilaterally. There was slight edema noted bilaterally as well. I considered the following differential diagnosis: COPD exacerbation, CHF exacerbation, ACS, arrhythmia, anemia, pneumonia, COVID, RSV, flu, PE I obtained a broad lab and imaging workup to further elucidate etiology of the patient's complaints Given the patient's clinical change with hypotension with a blood pressure 100/69, tachycardia rate of 130 (A-fib with RVR) I was reticent to give IV rate control as this will cause more hypotension. Given wheezing on his reticent to give beta agonist. I decided to give ipratropium for wheezing and oral metoprolol while giving a small fluid bolus of 500 cc t bolus temporize the patient's blood pressure in order to give more aggressive IV rate control. After approximate 250 cc bolus patient's x-ray, BNP came back with signs of heart failure. Fluids are stopped at this point in time. I did consult cardiology given refractory A-fib, hypotension after pain about further management including starting medications like amiodarone or digoxin. Spoke with ocular pathologist ALL IMAGES (IF OBTAINED) HAVE BEEN PERSONALLY REVIEWED AND INTERPRETED BY MYSELF. EKG with A-fib with RVR rate 134, normal axis, prolonged QT interval at 540, no obvious STEMI or ischemic changes Chest x-ray was read and reviewed person myself shows evidence of pulmonary edema and left-sided pleural effusion High-sensitivity troponin is negative, no evidence of myocardial ischemia CBC with no leukocytosis, noted mild anemia, no thrombocytopenia BMP without significant electrolyte abnormalities, no sign of metabolic acidosis or endorgan hypoperfusion with normal bicarb and anion gap, no CAITLYN BNP elevated consistent with volume overload The synthesis of the patient's history, physical exam, labs images suggest likely CHF exacerbation exertion and exacerbation of underlying A-fib with RVR. Discussed the case with cardiology recommended amiodarone gtt (1mg/min), for rate control. He further recommended Lasix for diuresis and admission. Will discuss with hospitalist who recommended PCU. The patient and/or family, caregivers express understanding. The patient and/or family, caregivers agrees with the plan. Shared decision making: I will have a discussion with the patient and or visitors regarding risk/benefits of further testing or admission. They will be made aware of of the risk/benefits inherent in this decision they will be given the opportunity to voice understanding. Total critical care time today provided was at least 40 minutes. This excludes separately billable procedures. Critical care time (if documented) is secondary to the patient having high probability of clinically significant/life threatening deterioration in the patient's condition which required my urgent intervention. Impression: 1. Dyspnea 2. A-fib with RVR 3. CHF exacerbation Dispo: Admit to This note was generated with [employer] dictation software. It may contain incorrect words, spelling, and punctuation that were not noted in review of the chart prior to signing. Lab Data Labs: Laboratory Results - last 24 hr 04/08/24 04/08/24 19:31 20:02 WBC 9.3 RBC 3.54 L Hgb 10.9 L Hct 34.6 L MCV 97.7 H MCH 30.8 MCHC 31.5 L RDW Std Deviation 55.6 H RDW Coeff of Esther 15.6 H Plt Count 283 MPV 11.4 Immature Gran % (Auto) 0.300 Neut % (Auto) 68.1 Lymph % (Auto) 18.6 L Leake % (Auto) 10.5 H Eos % (Auto) 2.0 Baso % (Auto) 0.5 Absolute Neuts (auto) 6.3 Absolute Lymphs (auto) 1.73 Nucleated RBC % 0 Sodium 144 Potassium 4.9 Chloride 113 H Carbon Dioxide 22.0 Anion Gap 9 BUN 47 H Creatinine 1.25 Estim Creat Clear Calc 50.28 Est GFR (MDRD) Af Amer 72 Est GFR (MDRD) Non-Af 60 BUN/Creatinine Ratio 37.6 H Glucose 116 H Calcium 9.1 Troponin I High Sens 25 B-Natriuretic Peptide 813.6 H Radiography Diagnostic Testing: Clinical Impression(s) from Imaging Studies Chest X-Ray 04/08/24 20:15 IMPRESSION: 1. Bibasilar pulmonary opacities, left greater than right with likely left pleural effusion. Consider atelectasis and/or pneumonia. Possible superimposed pulmonary edema. 2. Borderline cardiomegaly and/or pericardial effusion. Electronically Signed: Thad Dang DO at 20:25 EST , Discharge Plan Disposition Disposition: Acute Care Hospital [facility] Discharge Date/Time: 04/08/24 22:39
--- NOTE | 2024-04-08 20:02 | EKG12_ITS ---
Test Reason : GEN ILL Blood Pressure : */* mmHG Vent. Rate : 134 BPM Atrial Rate : * BPM P-R Int : * ms QRS Dur : 90 ms QT Int : 362 ms P-R-T Axes : * 4 97 degrees QTcB Int : 540 ms Atrial fibrillation with rapid ventricular response Cannot rule out Anterior infarct , age undetermined Abnormal ECG Confirmed by TYLER THOMAS, ZENY ([id number]), commissioning editor CANDICE SOL ([id number]) on 04/12/2024 6:07:46 AM Referred By: Confirmed By: ZENY SCOTT MD
[2024-04-08] MEDS: 0.9% Normal Saline (500mL Bag) 500 ML 999 ML IV (20:07)
--- NOTE | 2024-04-08 20:15 | RAD_ITS ---
EXAM: XR CHEST, 1 VIEW CLINICAL INDICATION: Shortness of breath TECHNIQUE: Frontal view of the chest. COMPARISON: 11/13/2021 FINDINGS: LUNGS AND PLEURAL SPACES: Bibasilar pulmonary opacities, left greater than right with likely left pleural effusion. Consider atelectasis and/or pneumonia. Possible superimposed pulmonary edema. No pneumothorax. HEART: Borderline cardiomegaly and/or pericardial effusion. MEDIASTINUM: Central airways and mediastinal contour are unremarkable. BONES/JOINTS: No significant abnormality. No acute fracture. SOFT TISSUES: No significant abnormality. VASCULATURE: Atherosclerosis. RAD/Chest 1 View (Portable) IMPRESSION: 1. Bibasilar pulmonary opacities, left greater than right with likely left pleural effusion. Consider atelectasis and/or pneumonia. Possible superimposed pulmonary edema. 2. Borderline cardiomegaly and/or pericardial effusion. Electronically Signed: Thad Dang DO at 20:25 EST ,
[2024-04-08 20:17] LABS: Absolute Lymphocyte Count 1.73 X10^3/uL (0.83-4.51); Absolute Neutrophil Count 6.3 X10^3/uL (2.0-7.7); Basophil# 0.05 X10^3/uL; Basophil% 0.5 % (0-1); Eosinophil# 0.19 X10^3/uL; Hematocrit 34.6 % (40-54); Hemoglobin 10.9 g/dL (13.0-16.5); Lymphocyte # 1.73 X10^3/ul (0.83-4.51); Lymphocyte % 18.6 % (19-41); Mean Corp Hgb Conc 31.5 g/dL (32-36); Mean Corpuscular Hgb 30.8 pg (27.0-32.0); Mean Corpuscular Volume 97.7 fL (80-94); Mean Platelet Vol. 11.4 fl (6.2-12.0); Monocyte# 0.98 X10^3/uL; Monocyte% 10.5 % (0-10); NRBC Flagged by Analyzer 0 % (0-5); Neutrophil # 6.32 X10^3/uL (2.7-7.7); Neutrophil % 68.1 % (47-70); Platelet Count 283 K/mm3 (150-450); RBC Distribution Width CV 15.6 % (11.6-14.6); RBC Distribution Width SD 55.6 fl (35.1-43.9); Red Blood Count 3.54 M/mm3 (4.6-6.2); White Blood Count 9.3 K/mm3 (4.4-11.0)
[2024-04-08] MEDS: Ipratropium 0.5 MG/2.5 ML SOLUTION INHALATION (20:19)
[2024-04-08] MEDS: Metoprolol Tartrate 25 MG Tablet PO (20:19)
[2024-04-08 20:35] LABS: Anion Gap 9 (5-15); BUN 47 mg/dL (7-18); BUN/Creat Ratio 37.6 RATIO (10-20); Calcium,Total 9.1 mg/dL (8.5-10.1); Chloride 113 mmol/L (98-107); Creatinine, Serum 1.25 mg/dL (0.70-1.30); EST Glomerular Filtration Rate 60 mL/min (>60); Est Glom Filt Rate - Afr Amer 72 mL/min (>60); Estimated Creatinine Clearance 50.28 ml/min; Glucose 116 mg/dL (74-106); Potassium 4.9 mmol/L (3.5-5.1); Sodium Level 144 mmol/L (136-145); Troponin-I HS (w/2H Reflex) 25 pg/mL (3.0-78.0)
[2024-04-08 20:48] LABS: BNP,B-Type NATRIURETIC PEPTIDE 813.6 pg/mL (0-100)
[2024-04-08] MEDS: Furosemide 40 MG/4 ML Vial IV (21:42)
[2024-04-08] MEDS: Amiodarone 360 MG in Dextrose 5% Viaflo Bag 192.8 ML 33.3 MG CONT INF (21:55)
--- NOTE | 2024-04-08 22:04 | PCM.HP.STD ---
HPI - General General Date of Admission: 04/08/24 Date of Service: 04/08/24 Chief Complaint: Dyspnea, lower extremity increased swelling. HPI Narrative The patient is a 78 y/o M w/ PMHx: PAF, Chronic COPD, CKD stage II per GFR trending, CAD s/p PCI, Carotid disease s/p CEA, HTN, HLD, Chronic macrocytic anemia/iron deficiency anemia, Valvular heart disease, Hypothyroidism, Hx Prostate CA, ORACIO, Gout, Former tobacco use who presents to the [facility] ED on 04/08/24 with history of dyspnea worsening over the past week more severe over the last 3 days worse with exertion with subjective chills but no recent fevers with a nonproductive cough with slightly increased lower extremity swelling prompting eventual ED evaluation to be cautious. Patient's daughter who is present send patient also do admit to recent likely weight gain and states he has not been recently good about weighing himself frequently to ascertain how quickly this occurred. Workup in the ED included T96.9 Temporally, heart rate 77, BP 113/63, respiratory rate 18, 93% on room air eventually transition to 97% on 2 L nasal cannula with most recent repeat vitals heart rate 145 with BP 103/69, CBC with WC 9.3, hemoglobin 10.9, MCV 97.7, platelet 283 without marked shift, BMP with chloride 113, BUN/creatinine 47/1.25, GFR 60, glucose 116, troponin 25, BNP 813.6, chest x-ray with bibasilar pulmonary opacities left greater than right with likely effusion possibly atelectasis versus pneumonia and superimposed pulmonary edema with borderline cardiomegaly and/or pericardial effusion, rapid SARS COVID/influenza/RSV PCR negative, EKG with atrial fibrillation with RVR. In the ED patient ministered metoprolol 5 mg IV x 1, metoprolol 25 mg p.o. x 1, DuoNeb therapy x 1, Lasix 40 mg IV x 1, amiodarone drip initiated. ED discussed case with [employer] Dr. Vance who recommended amiodarone drip. [facility] Medical History Thyroid disease High cholesterol Back pain Former smoker CPAP (continuous positive airway pressure) dependence Sleep apnea Emphysema, unspecified History of pain when walking History of edema History of echocardiogram History of atrial fibrillation Primary malignant neoplasm of prostate with high risk of recurrence due to [place] score of 8 to 10 and PSA greater than 20 Nocturia Spermatocele of epididymis Prostate cancer Dyslipidemia 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 Bilateral lower extremity edema Carotid artery disease Peripheral arterial disease Paroxysmal atrial fibrillation Claudication of both lower extremities Aortic valve stenosis 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 Phimosis Hypothyroidism Encounter for circumcision CAD (coronary artery disease) Wears hearing aid Wears glasses Wears dentures Cancer Ambulates with cane Gout Easy bruising Excessive bleeding History of hiatal hernia Gastric reflux Former smoker Shortness of breath on exertion Leg cramps History of heart attack History of stress test Cardiology follow-up encounter History of irregular heartbeat Chest pain Abnormal stress test Abnormal computed tomography of cecum and terminal ileum Testicular discomfort Right inguinal hernia Peripheral neuritis of left foot Carotid stenosis, bilateral Essential hypertension Arthritis Old myocardial infarction Atherosclerotic heart disease of [place] coronary artery without angina pectoris COPD (chronic obstructive pulmonary disease) Hypertension Hyperlipidemia Home Medications ?Medication ?Instructions ?Recorded ?Last Taken ?Type clopidogrel 75 mg tablet (Plavix) 75 mg PO QDAY CLOTTING 05/22/17 11/08/23 History pantoprazole 40 mg tablet,delayed 40 mg PO QDAY GERD 05/22/17 11/08/23 History release albuterol sulfate 90 mcg/actuation 2 puff inhalation Q6H PRN Wheezing 07/20/17 11/09/21 History aerosol inhaler (ProAir HFA) cholecalciferol (vitamin D3) 25 3,000 unit PO DAILY VITAMIN 04/01/18 11/08/23 History mcg (1,000 unit) capsule tiotropium bromide 2.5 2 inh inhalation QAM COPD 01/23/21 11/09/23 History mcg/actuation mist for inhalation (Spiriva Respimat) apixaban 5 mg tablet (Eliquis) 5 mg PO BID BLOOD THINNER 04/07/23 11/08/23 History levothyroxine 75 mcg capsule 75 mcg PO DAILY HYPOTHYROID 04/14/23 11/09/23 08:30 History furosemide 20 mg tablet 20 mg PO DAILY EDEMA #90 TABLETS 08/11/23 11/08/23 Rx potassium chloride 10 mEq 10 meq PO DAILY LOW POTASSIUM #90 08/11/23 11/08/23 Rx tablet,extended release TABLETS Handicap placard #1 ea 08/12/23 Unknown Rx nitroglycerin 0.4 mg sublingual 0.4 mg sublingual Q5-15M CHEST 08/12/23 Unknown Rx tablet PAIN #20 tabs atorvastatin 40 mg tablet 40 mg PO QHS HYPERLIPIDEMIA #90 09/29/23 11/08/23 Rx tabs metoprolol tartrate 25 mg tablet 25 mg PO BID #180 TABLETS 11/19/23 Unknown Rx ferrous sulfate 325 mg (65 mg 325 mg PO BID #90 tabs 02/02/24 Unknown Rx iron) tablet allopurinol 300 mg tablet 300 mg PO QDAY GOUT #90 tabs 02/23/24 Unknown Rx lisinopril 20 mg tablet 20 mg PO BID #180 TABLETS 03/17/24 Unknown Rx nifedipine 90 mg tablet,extended 90 mg PO QDAY HYPERTENSION #90 tabs 03/17/24 Unknown Rx release 24 hr Allergy/AdvReac Type Severity Reaction Status Date / Time bee venom protein (honey Allergy Severe Anaphylaxis Verified 04/08/24 18:59 bee) (bee stings) venom-wasp protein Allergy Severe Anaphylaxis Verified 04/08/24 18:59 Family History Father CVA (cerebral vascular accident) Mother CAD (coronary artery disease) Hx of CABG CHF (congestive heart failure) S/P MVR (mitral valve replacement) Brother COPD (chronic obstructive pulmonary disease) Diabetes Cancer lung Grandfather Colon cancer Surgical History History of skin graft History of coronary artery stent placement History of left-sided carotid endarterectomy H/O hernia repair Hx of circumcision Hx of prostate biopsy (~03/23/23) History of left-sided carotid endarterectomy Status post carotid endarterectomy History of cardiac catheterization H/O local excision of skin lesion History of brain surgery History of left knee surgery History of tonsillectomy Postsurgical percutaneous transluminal coronary angioplasty (PTCA) status (03/21/22) Presence of stent in coronary artery (~01/22/11) Social History (Updated 04/08/24 @ 23:[address] Luba Villatoro MD) household members: spouse Smoking Status: Former smoker how long ago did patient quit smokin alcohol intake: never substance use type: does not use caffeine: Yes (3 servings per day) what type of physical activity do you participate in: walking frequency: daily ROS ROS Narrative Admission Review of Systems: CONSTITUTIONAL: No weight loss, fever, chills, + weakness or fatigue. HEENT: Eyes: No visual loss, blurred vision, double vision or yellow sclerae. Ears, Nose, Throat: No hearing loss, sneezing, congestion, runny nose or sore throat. SKIN: No rash or itching, lesions, wounds except + occasional stage ecchymoses, abrasions. CARDIOVASCULAR: + Orthopnea, increasing edema, likely weight gain, occasional palpitations. No chest pain, syncopal events. RESPIRATORY: + Dyspnea, worse with exertion, cough with very minimally productive sputum, reports occasional wheezing. No hemoptysis. GASTROINTESTINAL: No anorexia, nausea, vomiting or diarrhea, abdominal pain, melena, BRBPR. GENITOURINARY: No dysuria, frequency, urgency or retention. NEUROLOGICAL: No headache, dizziness, syncope, paralysis, ataxia, numbness or tingling in the extremities, focal weakness, change in bowel or bladder control, seizure. MUSCULOSKELETAL: + muscle, back pain, joint pain or stiffness. HEMATOLOGIC: + Chronic anemia, easy bleeding/bruising. LYMPHATICS: No enlarged nodes. No history of splenectomy. PSYCHIATRIC: No history of depression or anxiety. ENDOCRINOLOGIC: No reports of sweating, cold or heat intolerance. No polyuria or polydipsia. ALLERGIES: + History of allergic rhinitis, anaphylaxis. Vital Signs Vital Signs Vital Signs: 04/08/24 19:00 04/08/24 19:31 04/08/24 19:31 Temperature 96.9 F L 98 F Temperature Source Temporal Temporal Pulse Rate 77 130 H Respiratory Rate 18 20 H Respiratory Effort Short of Breath Labored Respiratory Depth Shallow Respiratory Pattern Tachypnea Blood Pressure 113/63 100/69 Blood Pressure Mean 79 79 Pulse Ox 93 92 Oxygen Delivery Method Room Air Room Air Room Air Oxygen Flow Rate (L/min) 92 04/08/24 20:21 04/08/24 21:00 04/08/24 21:43 Temperature Temperature Source Pulse Rate 136 H 138 H 140 H Respiratory Rate 16 Respiratory Effort Respiratory Depth Respiratory Pattern Blood Pressure 97/65 101/68 Blood Pressure Mean 75 79 Pulse Ox 97 Oxygen Delivery Method Nasal Cannula Oxygen Flow Rate (L/min) 2 04/08/24 21:48 04/08/24 21:55 Temperature 98 F Temperature Source Temporal Pulse Rate 145 H 145 H Respiratory Rate 18 Respiratory Effort Respiratory Depth Respiratory Pattern Blood Pressure 103/69 103/69 Blood Pressure Mean 80 80 Pulse Ox 94 Oxygen Delivery Method Oxygen Flow Rate (L/min) Weight Weight: 179 lb 10.828 oz Body Mass Index (BMI) 26.5 Physical Exam Narrative Physical Examination: General: Awake, alert, oriented x 3 and cooperative, seated upright in the ED bed in no apparent distress, mildly hard of hearing with hearing aids in. Skin: Normal color, normal turgor, no icterus, no cyanosis except for occasional stage ecchymoses, abrasion HEENT: AT/NC, EOMI, PERRLA, MMM, no carotid bruits, + JVD noted. Lungs: Diminished, greater bases, appropriate effort, mild rales bilateral bases, notes feeling improved since initial ED arrival, no rhonchi, occasional wheezing but very minimal. Heart: Irregular irregular; no gallop, rub audible. Abdomen: Soft, NTTP, ND, mildly hyperactive BS, no appreciated HSM. Extremities: No cyanosis, no clubbing, pedal to proximal knee 2+ pitting edema. Neurological: Patient awake, alert, oriented as noted, cognitive function intact; pupils equally reactive to light and accommodation, cranial nerves grossly normal, moving all 4 extremities, no focal deficits, strength moderately to severely globally decreased Psychiatric: Affect appears fatigued otherwise normal, no acute evidence of depressive or anxiety feelings. Results Lab / Micro Data 04/08/24 19:31 04/08/24 19:31 Labs: Laboratory Results - last 24 hr 04/08/24 19:31: WBC 9.3, RBC 3.54 L, Hgb 10.9 L, Hct 34.6 L, MCV 97.7 H, MCH 30.8, MCHC 31.5 L, RDW Std Deviation 55.6 H, RDW Coeff of Esther 15.6 H, Plt Count 283, MPV 11.4, Immature Gran % (Auto) 0.300, Neut % (Auto) 68.1, Lymph % (Auto) 18.6 L, Mcdonald % (Auto) 10.5 H, Eos % (Auto) 2.0, Baso % (Auto) 0.5, Absolute Neuts (auto) 6.3, Absolute Lymphs (auto) 1.73, Nucleated RBC % 0, Sodium 144, Potassium 4.9, Chloride 113 H, Carbon Dioxide 22.0, Anion Gap 9, BUN 47 H, Creatinine 1.25, Estim Creat Clear Calc 50.28, Est GFR (MDRD) Af Amer 72, Est GFR (MDRD) Non-Af 60, BUN/Creatinine Ratio 37.6 H, Glucose 116 H, Calcium 9.1, Troponin I High Sens 25 04/08/24 20:02: B-Natriuretic Peptide 813.6 H Micro: Microbiology 04/08/24 20:10 Mucosa - Nose SARS-CoV-2, Influenza & RSV (PCR) - Final Imaging Radiology Impression Chest X-Ray 04/08/24 20:15 IMPRESSION: 1. Bibasilar pulmonary opacities, left greater than right with likely left pleural effusion. Consider atelectasis and/or pneumonia. Possible superimposed pulmonary edema. 2. Borderline cardiomegaly and/or pericardial effusion. Electronically Signed: Thad Dang, at 20:25 EST , Assessment & Plan Assessment/Plan (1) Atrial fibrillation with RVR: (2) Acute exacerbation of chronic heart failure: PLAN: Plan The patient is a 78 y/o M w/ PMHx: PAF, Chronic COPD, CKD stage II per GFR trending, CAD s/p PCI, Carotid disease s/p CEA, HTN, HLD, Chronic macrocytic anemia/iron deficiency anemia, Valvular heart disease, Hypothyroidism, Hx Prostate CA, ORACIO, Gout, Former tobacco use who presents to the [facility] ED on 04/08/24 with history of dyspnea worsening over the past week more severe over the last 3 days worse with exertion with subjective chills but no recent fevers with a nonproductive cough with slightly increased lower extremity swelling prompting eventual ED evaluation to be cautious. #1. Acute Hypoxia secondary to Acutely Decompensated HFpEF presumed per previous echocardiogram, complicated by #2 persistent atrial fibrillation with RVR: Patient administered IV lasix in the ED, will admit to PCU, maintain on cardiac telemetry, obtain cardiac enzyme series, obtain serial EKGs, continue IV lasix diuresis, monitor I/Os, maintain on intake restriction, continue medical therapy, obtain TSH and magnesium level. Most recent ECHO noted 09/2023 therefore we will repeat. Continue amiodarone drip given #2 was noted. Cardiology consulted, pending. Placed on José wrap's. Lower suspicion for PNA given afebrile, no marked WBC elevation but to be cautious will request sputum cultures, full respiratory viral panel, urine antigens, procalcitonin and urine antigens w/ repeat CXR in AM following initial diuresis. PT/OT/CM consulted for discharge planning. #2. Paroxysmal atrial fibrillation w/ RVR: EKG in ED w/ atrial fibrillation w/ RVR. Patient administered initially BB therapies and eventually placed on amiodarone in ED. Will maintain on telemetry, obtain cardiac enzyme serial set, obtain magnesium level, obtain ECHO as most recent echo noted previously greater than 6 months 09/2023 with normal LV size, normal LV systolic function, LVEF 55%, PASP 42 mmHg with mild focal AV calcification, peak aortic valve gradient 21 mmHg, mean aortic valve gradient 11 mmHg, obtain TSH level. Will continue Eliquis. Initiated on significant metoprolol oral and IV attempts in the ED which were unsuccessful eventually placed on amiodarone with bolus and drip which will be continued. Will continue cardiology consultation request. #3. Acute renal insufficiency/acutely elevated Cr on Chronic Kidney Disease Stage II primarily per previous GFR trending: Admission BUN/Cr 47/1.25, GFR 60, baseline renal function primarily 0.7-0.8, repeat BMP in AM. #4. Chronic COPD: Will maintain on oxygen with wean as tolerated to room air as noted, will maintain on ATC budesonide therapy, PRN albuterol, HOB, IS parameters. #5. CAD: Status post previous PCI in initially 2010 and follow-up 2022, will continue plavix, Eliquis, statin therapy, metoprolol, lisinopril regimen. #6. Carotid disease: Status post previous left-sided carotid endarterectomy, most recent duplex noted 12/04/2023 with normal right extracranial internal carotid, mild stenosis left extracranial internal carotid, patent antegrade vertebrals bilaterally. Will continue plavix, Eliquis, statin, hypertensive regimen with adjustments as noted. #7. Hypertension: Continue home regimen including metoprolol, lisinopril, nifedipine, IV Lasix as noted above, PRN hydralazine. #8. Hyperlipidemia: Continue home statin regimen. AM FLP. #9. Chronic macrocytic anemia/iron deficiency anemia: Admission hemoglobin 10.9, MCV 97.7, baseline hemoglobin ranging 9-11, most recently 03/10/2024 hemoglobin 11.2, continue to trend, continue iron supplementation. #10. Valvular heart disease: 09/2023 ECHO with normal LV size, normal LV systolic function, LVEF 55%, PASP 42 mmHg with mild focal AV calcification, peak aortic valve gradient 21 mmHg, mean aortic valve gradient 11 mmHg. #11. Hypothyroidism: Continue patient on levothyroxine regimen, TSH requested. #12. History of prostate cancer: Previous radiation and outpatient injections ongoing, consider in remission, encourage continued outpatient follow-up with Urology as previously arranged. #13. GERD: We will continue patient on PPI. #14. Gout: Continue patient home allopurinol regimen. #15. Former tobacco use: Encourage continued tobacco cessation. #16. ORACIO: PAP therapy nightly #17. DVT prophylaxis: Will continue patient on Eliquis regimen. #18. CODE status: Patient LILLY is and his daughter secondary and living will is currently in place. Discussed CODE status at length including difference between FULL code, DNR-CCA and DNR-CC status. Following discussions about the differences in these status, requested Full Code status. Did discuss given his history prognosis would be lower if these events were to occur. Daughter present and he also notes that his granddaughter works currently in [place] but had prior also worked in [place]. Advanced Care Planning Face to Face Time: 16 minutes. Charges/Coding Visit Charges Inpatient E&M: 65582 Init Hosp L3 Procedures Hospitalists Procedures: 97532 Advncd Care Plan 30 Min
[2024-04-08 22:14] LABS: Reflex Troponin-HS? (from REC) Y
[2024-04-08 22:48] LABS: Troponin-I HS 24 pg/mL (3.0-78.0)
[2024-04-08 23:26] LABS: Magnesium 2.1 mg/dL (1.6-2.6)
--- NOTE | 2024-04-08 23:38 | ECHOD_ITS ---
Reason For Study: CHF Procedure This was a 2D Doppler, Color Flow transthoracic echocardiogram. Exam performed portable in patient room. Left Ventricle Mildly dilated left ventricle. The estimated ejection fraction is 25 %. There is evidence of diastolic dysfunction. There is severe global hypokinesis of the left ventricle. Right Ventricle Mildly dilated right ventricle. Mild to moderate global right ventricular systolic dysfunction. Atria There is mild biatrial dilatation. No doppler evidence for ASD. Mitral Valve There is no mitral valve stenosis. Moderate (2+) mitral valve insufficiency. Tricuspid Valve There is no tricuspid stenosis. Moderate (2+) tricuspid valve insufficiency. Pulmonary artery systolic pressure is 30 mmHg. Aortic Valve Moderate diffuse aortic valve thickening. Mild aortic stenosis. No aortic valve insufficiency. Pulmonic Valve There is no pulmonic valvular stenosis. No pulmonic valve insufficiency. Great Vessels Normal aortic root. Pericardium/Pleural No pericardial effusion. MMode/2D Measurements & Calculations LVIDd: 5.8 cm IVSd: 0.71 cm LVOT diam: 2.0 cm LVIDs: 4.9 cm LVPWd: 0.86 cm LVOT area: 3.2 cm2 RVDd: 4.7 cm FS: 15.4 % LAV(MOD-bp): 79.5 ml LVAd ap4: 31.7 cm2 SV(MOD-sp4): 23.0 ml LAV(MOD-bp) Indexed: 40.9 ml/m2 LVLd ap4: 8.1 cm SI(MOD-sp4): 11.8 ml/m2 LAV(MOD-sp2): 88.0 ml EDV(MOD-sp4): 105.6 ml LAV(MOD-sp4): 67.9 ml EDV(sp4-el): 105.8 ml LVAs ap4: 27.8 cm2 LVLs ap4: 7.8 cm ESV(MOD-sp4): 82.7 ml ESV(sp4-el): 83.8 ml EF(MOD-sp4): 21.7 % EF(sp4-el): 20.8 % SV(sp4-el): 22.0 ml LA A4 area: 22.6 cm2 LA dimension(2D): 5.5 cm RA A4 area: 22.5 cm2 Doppler Measurements & Calculations Ao V2 max: 163.6 cm/sec LV V1 max: 85.7 cm/sec SV(LVOT): 37.6 ml Ao max P.8 mmHg LV V1 max P.0 mmHg Ao V2 mean: 114.2 cm/sec LV V1 mean P.7 mmHg Ao mean P.0 mmHg LV V1 mean: 59.8 cm/sec Ao V2 VTI: 22.9 cm LV V1 VTI: 11.7 cm AV (velocity ratio): 0.51 JEROMY(I,D): 1.6 cm2 JEROMY(V,D): 1.7 cm2 PA V2 max: 66.2 cm/sec TR max umm: 236.8 cm/sec PA V2 mean: 48.2 cm/sec TR max P.4 mmHg ECHO/Echo Complete Interpretation Summary The estimated ejection fraction is 25 %. Mildly dilated left ventricle. There is evidence of diastolic dysfunction. There is severe global hypokinesis of the left ventricle. Mildly dilated right ventricle. Mild to moderate global right ventricular systolic dysfunction. There is mild biatrial dilatation. Moderate (2+) mitral valve insufficiency. Mild aortic stenosis. Ordering Physician: Luba Villatoro Referring Physician: SANTOSH VELAZQUEZ Performed By: Oralia Hedrick RCS
[2024-04-09] VITALS (29 sets, daily range): BP systolic 87–112; BP diastolic 51–72; PULSE 65–134; RESP 12–24; TEMP 36.3–36.9; O2SAT 89–96; BMI 25.8
--- NOTE | 2024-04-09 00:57 | CPS ---
Patient refused PAP therapy for night time use.
[2024-04-09 02:00] LABS: Troponin-I HS 23 pg/mL (3.0-78.0)
[2024-04-09] MEDS: Amiodarone 360 MG in Dextrose 5% Viaflo Bag 192.8 ML 16.7 MG CONT INF (03:46)
[2024-04-09] MEDS: Levothyroxine 75 MCG Tablet PO (03:48)
--- NOTE | 2024-04-09 05:40 | RAD_ITS ---
INDICATION: Dyspnea, cough EXAMINATION/TECHNIQUE: X-RAY - XR Chest 1 View COMPARISON: April 08, 2024 FINDINGS: LINES/DEVICES: None. LUNGS: There is a stable nonspecific right basilar opacity. There is a hazy opacity within the left lower lung that has not significantly changed as well. No pneumothorax. MEDIASTINUM AND CARDIOVASCULAR STRUCTURES: Cardiac silhouette not enlarged. Central airways and mediastinal contour are unremarkable. BONES AND SOFT TISSUES: Unremarkable. RAD/Chest 1 View (Portable) IMPRESSION: Stable left basilar hazy opacity which may reflect an effusion and possible consolidation. Stable nonspecific right basilar opacity, may be secondary to atelectasis and/or pneumonia. Electronically Signed: Savi Longo MD at 14:15 EST ,
[2024-04-09] MEDS: Budesonide Respules 0.5 MG/2 ML AMPUL.NEB. INHALATION ×2 (07:17→19:15)
[2024-04-09 08:40] LABS: Absolute Lymphocyte Count 1.07 X10^3/uL (0.83-4.51); Absolute Neutrophil Count 5.5 X10^3/uL (2.0-7.7); Basophil# 0.04 X10^3/uL; Basophil% 0.5 % (0-1); Eosinophil# 0.14 X10^3/uL; Eosinophils% 1.8 % (0-5); Hematocrit 32.2 % (40-54); Hemoglobin 10.4 g/dL (13.0-16.5); Lymphocyte # 1.07 X10^3/ul (0.83-4.51); Lymphocyte % 14.1 % (19-41); Mean Corp Hgb Conc 32.3 g/dL (32-36); Mean Corpuscular Hgb 30.7 pg (27.0-32.0); Mean Platelet Vol. 11.4 fl (6.2-12.0); Monocyte# 0.79 X10^3/uL; Monocyte% 10.4 % (0-10); NRBC Flagged by Analyzer 0.3 % (0-5); Neutrophil # 5.54 X10^3/uL (2.7-7.7); Neutrophil % 72.8 % (47-70); Platelet Count 241 K/mm3 (150-450); RBC Distribution Width CV 15.8 % (11.6-14.6); RBC Distribution Width SD 54.3 fl (35.1-43.9); Red Blood Count 3.39 M/mm3 (4.6-6.2); White Blood Count 7.6 K/mm3 (4.4-11.0)
[2024-04-09] MEDS: APIXABAN 5 MG TABLET PO ×2 (09:41→21:31)
[2024-04-09] MEDS: Pantoprazole Sodium 40 MG Tablet PO (09:41)
[2024-04-09] MEDS: Metoprolol Tartrate 25 MG Tablet PO (09:42)
[2024-04-09] MEDS: Potassium Chloride Oral Tablet 10 MEQ PO (09:43)
[2024-04-09] MEDS: Clopidogrel Bisulfate 75 MG Tablet PO (09:43)
[2024-04-09] MEDS: Allopurinol 300 MG Tablet PO (09:43)
[2024-04-09 09:47] LABS: ALB/GLOB Ratio 0.9 RATIO (0.9-2.4); AST(SGOT) 10 U/L (15-37); Alanine Aminotransfer ALT/SGPT 24 U/L (16-61); Alkaline Phosphatase 119 U/L (45-117); Anion Gap 7 (5-15); BUN 45 mg/dL (7-18); BUN/Creat Ratio 39.5 RATIO (10-20); Calcium,Total 8.9 mg/dL (8.5-10.1); Chloride 112 mmol/L (98-107); Cholesterol 65 mg/dL (200); Creatinine, Serum 1.14 mg/dL (0.70-1.30); EST Glomerular Filtration Rate 66 mL/min (>60); Est Glom Filt Rate - Afr Amer 80 mL/min (>60); Estimated Creatinine Clearance 55.13 ml/min; Globulin 3.5 g/dL (2.2-4.2); Glucose 108 mg/dL (74-106); High Density Lipoprotein 29 mg/dL; Potassium 4.5 mmol/L (3.5-5.1); Protein, Total 6.5 g/dL (6.4-8.2); Sodium Level 142 mmol/L (136-145); Triglycerides 96 mg/dL; Very Low Density Lipoprotein 19 mg/dL (5-40)
--- NOTE | 2024-04-09 10:07 | PN.HOSP_ITS ---
Reason for Visit Reason for Visit: Diagnoses Unspecified atrial fibrillation (04/08/24) Heart failure, unspecified (04/08/24) Subjective Subjective Feeling better than he did when he came in. Objective Data Objective Data Vital Signs: Vital Signs Temp Pulse Resp BP Pulse Ox O2 Del Method O2 Flow Rate 36.3 C L 134 H 19 H 96/64 95 Nasal Cannula 3 04/09/24 09:39 04/09/24 09:42 04/09/24 09:39 04/09/24 09:39 04/09/24 09:39 04/09/24 09:54 04/09/24 09:54 Oxygen Flow Rate (L/min) 3 Oxygen Delivery Method Nasal Cannula Weight: 79.1 kg Body Mass Index (BMI) 25.8 Intake & Output: Intake and Output for Last 24 Hours 04/07/24 04/08/24 04/09/24 23:59 23:59 23:59 Intake Total 561.06 / 569.39 206.68 / 206.68 Output Total 500 / 500 Balance 561.06 / 319.39 -293.32 / -293.32 Lab / Micro Data 04/09/24 07:36 04/09/24 07:36 Labs: Laboratory Results - last 24 hr 04/08/24 19:31: WBC 9.3, RBC 3.54 L, Hgb 10.9 L, Hct 34.6 L, MCV 97.7 H, MCH 30.8, MCHC 31.5 L, RDW Std Deviation 55.6 H, RDW Coeff of Esther 15.6 H, Plt Count 283, MPV 11.4, Immature Gran % (Auto) 0.300, Neut % (Auto) 68.1, Lymph % (Auto) 18.6 L, [place] % (Auto) 10.5 H, Eos % (Auto) 2.0, Baso % (Auto) 0.5, Absolute Neuts (auto) 6.3, Absolute Lymphs (auto) 1.73, Nucleated RBC % 0, Sodium 144, Potassium 4.9, Chloride 113 H, Carbon Dioxide 22.0, Anion Gap 9, BUN 47 H, Creatinine 1.25, Estim Creat Clear Calc 50.28, Est GFR (MDRD) Af Amer 72, Est GFR (MDRD) Non-Af 60, BUN/Creatinine Ratio 37.6 H, Glucose 116 H, Calcium 9.1, Troponin I High Sens 04/08/24 20:02: B-Natriuretic Peptide 813.6 H 04/08/24 22:26: Magnesium 2.1, Troponin I High Sens 04/08/24 23:47: Procalcitonin 0.20 H 04/09/24 01:37: Troponin I High Sens 04/09/24 07:36: WBC 7.6, RBC 3.39 L, Hgb 10.4 L, Hct 32.2 L, MCV 95.0 H, MCH 30.7, MCHC 32.3, RDW Std Deviation 54.3 H, RDW Coeff of Esther 15.8 H, Plt Count 241, MPV 11.4, Immature Gran % (Auto) 0.400, Neut % (Auto) 72.8 H, Lymph % (Auto) 14.1 L, [place] % (Auto) 10.4 H, Eos % (Auto) 1.8, Baso % (Auto) 0.5, Absolute Neuts (auto) 5.5, Absolute Lymphs (auto) 1.07, Nucleated RBC % 0.3, Sodium 142, Potassium 4.5, Chloride 112 H, Carbon Dioxide 23.0, Anion Gap 7, BUN 45 H, Creatinine 1.14, Estim Creat Clear Calc 55.13, Est GFR (MDRD) Af Amer 80, Est GFR (MDRD) Non-Af 66, BUN/Creatinine Ratio 39.5 H, Glucose 108 H, Calcium 8.9, Total Bilirubin 0.50, AST 10 L, ALT 24, Alkaline Phosphatase 119 H, Total Protein 6.5, Albumin 3.0 L, Globulin 3.5, Albumin/Globulin Ratio 0.9, Triglycerides 96, Cholesterol 65, LDL Cholesterol 17, VLDL Cholesterol 19, HDL Cholesterol 29 L, TSH 2.930 Micro: Microbiology 04/08/24 04:00 Urine, Clean Catch Legionella Antigen - Final 04/08/24 04:00 Urine, Clean Catch Streptococcus pneumoniae Antigen (M - Final 04/08/24 23:45 Mucosa - Nasopharyngeal Respiratory Panel (PCR) - Final 04/08/24 20:10 Mucosa - Nose SARS-CoV-2, Influenza & RSV (PCR) - Final Radiography Diagnostic Testing: Radiology Impression Chest X-Ray 04/08/24 20:15 IMPRESSION: 1. Bibasilar pulmonary opacities, left greater than right with likely left pleural effusion. Consider atelectasis and/or pneumonia. Possible superimposed pulmonary edema. 2. Borderline cardiomegaly and/or pericardial effusion. Electronically Signed: Thad Dang, at 20:25 EST , Physical Exam Const alert and no apparent distress HEENT head/scalp atraumatic and moist oral mucous membranes Resp normal respiratory effort, no retractions, no use of accessory muscles and clear to auscultation bilaterally Cardio regular rate, regular rhythm, S1 normal heart sound and S2 normal heart sound GI normal to inspection, nondistended, normoactive bowel sounds, soft to palpation, non-tender and non-distended Neuro Sensorium / Orientation: awake and alert Assessment & Plan Assessment/Plan (1) Atrial fibrillation with RVR: (2) Acute exacerbation of chronic heart failure: PLAN: Plan Acute HFrEF * EF 25% (down from 65% on 05/08/2022) severe global hypokinesis, mildly dilated RV. Moderate DC, Mild . * furosemide 40 BID * echo ordered. Afib w RVR: * amiodarone gtt. Continue apixaban. * Cards consult. Chronic conditions: * Chronic COPD: Will maintain on oxygen with wean as tolerated to room air as noted, will maintain on ATC budesonide therapy, PRN albuterol, HOB, IS parameters. * CAD: Status post previous PCI in initially 2010 and follow-up 2022, will continue plavix, Eliquis, statin therapy, metoprolol, lisinopril regimen. * Carotid disease: Status post previous left-sided carotid endarterectomy, most recent duplex noted 12/04/2023 with normal right extracranial internal carotid, mild stenosis left extracranial internal carotid, patent antegrade vertebrals bilaterally. Will continue plavix, Eliquis, statin, hypertensive regimen with adjustments as noted. * hypertension: Continue home regimen including metoprolol, lisinopril, nifedipine, IV Lasix as noted above, PRN hydralazine. * Hyperlipidemia: Continue home statin regimen. AM FLP. * Chronic macrocytic anemia/iron deficiency anemia: Admission hemoglobin 10.9, MCV 97.7, baseline hemoglobin ranging 9-11, most recently 03/10/2024 hemoglobin 11.2, continue to trend, continue iron supplementation. * Valvular heart disease: 09/2023 ECHO with normal LV size, normal LV systolic function, LVEF 55%, PASP 42 mmHg with mild focal AV calcification, peak aortic valve gradient 21 mmHg, mean aortic valve gradient 11 mmHg. * Hypothyroidism: Continue patient on levothyroxine regimen, TSH requested. * History of prostate cancer: Previous radiation and outpatient injections ongoing, consider in remission, encourage continued outpatient follow-up with Urology as previously arranged. * GERD: We will continue patient on PPI. * Gout: Continue patient home allopurinol regimen. * Former tobacco use: Encourage continued tobacco cessation. * ORACIO: PAP therapy nightly DVT prophylaxis: Will continue patient on Eliquis regimen. Charges/Coding Visit Charges Inpatient E&M: 94940 Subs Hosp L2
--- NOTE | 2024-04-09 11:55 | NURSING ---
Pocket knife given to to take home. placed in her purse.
[2024-04-09] MEDS: Ferrous Sulfate 325 MG Tablet PO (13:37)
--- NOTE | 2024-04-09 14:03 | EKG12_ITS ---
Test Reason : AF Blood Pressure : */* mmHG Vent. Rate : 74 BPM Atrial Rate : 74 BPM P-R Int : 170 ms QRS Dur : 90 ms QT Int : 478 ms P-R-T Axes : 88 -2 -23 degrees QTcB Int : 530 ms Sinus rhythm with Premature supraventricular complexes Anterior infarct , age undetermined Prolonged QT Abnormal ECG When compared with ECG of 08-Apr-2024 20:05, MANUAL COMPARISON REQUIRED DATA IS UNCONFIRMED Confirmed by TYLER THOMAS, ZENY ([id number]), department editor CANDICE SOL ([id number]) on 04/11/2024 1:56:06 PM Referred By: KOLTON Confirmed By: ZENY SCOTT MD
--- NOTE | 2024-04-09 14:21 | CON.PCM.CA_ITS ---
Assessment & Plan Assessment/Plan (1) Acute exacerbation of chronic heart failure: PLAN: Patient appears to be volume overloaded. Continue IV Lasix for another day. (2) Atrial fibrillation with RVR: PLAN: Patient converted to sinus rhythm. Complete 24 hours of IV Amio. We will try to increase the beta-kaylene and see if this will keep him in sinus rhythm. Since patient is currently being diuresed and his kidney function could change we will hold off on starting sotalol at this time. We will see if we can hold off on chronic amiodarone therapy as it was stopped in the past due to abnormal lung function test. (3) LV dysfunction: PLAN: This could be tachycardia induced as patient could have had A-fib with RVR for while. He will need a repeat echo in 3 months to assess LV function. Will DC nifedipine. Continue lisinopril. At the time of discharge patient's metoprolol could be switched to metoprolol succinate. HPI Consult Data Date of Consult: 04/09/24 HPI Narrative Reason for Consultation: A-fib with RVR HPI Narrative: NIKKO BARAJAS, is a 78 M who presents with shortness of breath and was found to be in A-fib with RVR. He was also volume overloaded and his BNP was elevated. Patient was started on IV amiodarone and IV Lasix. He converted to sinus rhythm this afternoon. His shortness of breath is improved but he still has some shortness of breath. Patient has history of coronary artery disease status post PCI. He does have residual circumflex stenosis that is being treated medically since the FFR was 0.83. He has history of paroxysmal atrial fibrillation. He had been on amiodarone and was maintaining sinus rhythm. He had abnormal PFTs that were done since he was on amiodarone and his amiodarone was stopped. Patient cannot tell when he goes into A-fib. This admission his ejection fraction is around 25% with global hypokinesis. His echo from September 2023 revealed preserved EF. Review of systems: All systems reviewed. All else is negative except that in [facility] Medical History Thyroid disease High cholesterol Back pain Former smoker CPAP (continuous positive airway pressure) dependence Sleep apnea Emphysema, unspecified History of pain when walking History of edema History of echocardiogram History of atrial fibrillation Primary malignant neoplasm of prostate with high risk of recurrence due to Yaya score of 8 to 10 and PSA greater than 20 Nocturia Spermatocele of epididymis Prostate cancer Dyslipidemia 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 Bilateral lower extremity edema Carotid artery disease Peripheral arterial disease Paroxysmal atrial fibrillation Claudication of both lower extremities Aortic valve stenosis Bradycardia basketballs and footballs reverser current use of amiodarone Phimosis Hypothyroidism Encounter for circumcision CAD (coronary artery disease) Wears hearing aid Wears glasses Wears dentures Cancer Ambulates with cane Gout Easy bruising Excessive bleeding History of hiatal hernia Gastric reflux Former smoker Shortness of breath on exertion Leg cramps History of heart attack History of stress test Cardiology follow-up encounter History of irregular heartbeat Chest pain Abnormal stress test Abnormal computed tomography of cecum and terminal ileum Testicular discomfort Right inguinal hernia Peripheral neuritis of left foot Carotid stenosis, bilateral Essential hypertension Arthritis Old myocardial infarction Atherosclerotic heart disease of [place] coronary artery without angina pectoris COPD (chronic obstructive pulmonary disease) Hypertension Hyperlipidemia Home Medications ?Medication ?Instructions ?Recorded ?Last Taken ?Type clopidogrel 75 mg tablet (Plavix) 75 mg PO QDAY CLOTTING 05/22/17 11/08/23 History pantoprazole 40 mg tablet,delayed 40 mg PO QDAY GERD 05/22/17 11/08/23 History release albuterol sulfate 90 mcg/actuation 2 puff inhalation Q6H PRN Wheezing 07/20/17 11/09/21 History aerosol inhaler (ProAir HFA) cholecalciferol (vitamin D3) 25 3,000 unit PO DAILY VITAMIN 04/01/18 11/08/23 History mcg (1,000 unit) capsule tiotropium bromide 2.5 2 inh inhalation QAM COPD 01/23/21 11/09/23 History mcg/actuation mist for inhalation (Spiriva Respimat) apixaban 5 mg tablet (Eliquis) 5 mg PO BID BLOOD THINNER 04/07/23 11/08/23 History levothyroxine 75 mcg capsule 75 mcg PO DAILY HYPOTHYROID 04/14/23 11/09/23 08:30 History furosemide 20 mg tablet 20 mg PO DAILY EDEMA #90 TABLETS 08/11/23 11/08/23 Rx potassium chloride 10 mEq 10 meq PO DAILY LOW POTASSIUM #90 08/11/23 11/08/23 Rx tablet,extended release TABLETS Handicap nandiniard #1 ea 08/12/23 Unknown Rx nitroglycerin 0.4 mg sublingual 0.4 mg sublingual Q5-15M CHEST 08/12/23 Unknown Rx tablet PAIN #20 tabs atorvastatin 40 mg tablet 40 mg PO QHS HYPERLIPIDEMIA #90 09/29/23 11/08/23 Rx tabs metoprolol tartrate 25 mg tablet 25 mg PO BID #180 TABLETS 11/19/23 Unknown Rx ferrous sulfate 325 mg (65 mg 325 mg PO BID #90 tabs 02/02/24 Unknown Rx iron) tablet allopurinol 300 mg tablet 300 mg PO QDAY GOUT #90 tabs 02/23/24 Unknown Rx lisinopril 20 mg tablet 20 mg PO BID #180 TABLETS 03/17/24 Unknown Rx nifedipine 90 mg tablet,extended 90 mg PO QDAY HYPERTENSION #90 tabs 03/17/24 Unknown Rx release 24 hr Allergy/AdvReac Type Severity Reaction Status Date / Time bee venom protein (honey Allergy Severe Anaphylaxis Verified 04/08/24 18:59 bee) (bee stings) venom-wasp protein Allergy Severe Anaphylaxis Verified 04/08/24 18:59 Family History Father CVA (cerebral vascular accident) Mother CAD (coronary artery disease) Hx of CABG CHF (congestive heart failure) S/P MVR (mitral valve replacement) Brother COPD (chronic obstructive pulmonary disease) Diabetes Cancer lung Grandfather Colon cancer Surgical History History of skin graft History of coronary artery stent placement History of left-sided carotid endarterectomy H/O hernia repair Hx of circumcision Hx of prostate biopsy (~03/23/23) History of left-sided carotid endarterectomy Status post carotid endarterectomy History of cardiac catheterization H/O local excision of skin lesion History of brain surgery History of left knee surgery History of tonsillectomy Postsurgical percutaneous transluminal coronary angioplasty (PTCA) status (03/21/22) Presence of stent in coronary artery (~01/22/11) Social History (Updated 04/08/24 @ 23:[address] Luba Villatoro MD) household members: spouse Smoking Status: Former smoker how long ago did patient quit smokin alcohol intake: never substance use type: does not use caffeine: Yes (3 servings per day) what type of physical activity do you participate in: walking frequency: daily Physical Exam Const alert and oriented x3 HEENT normocephalic Eyes no scleral icterus Resp Resp Narrative: Bilateral crackles Cardio regular rate Extremity Extremity Narrative: 1+ to 2+ bilateral pitting edema Skin no rashes or lesions noted Risk Stratification Risk Stratification Applicable: No Charges/Coding Visit Charges Inpatient E&M: 80898 Init Hosp L2 Objective Data Vital Signs: Vital Signs Temp Pulse Resp BP Pulse Ox O2 Del Method O2 Flow Rate 97.4 F L 119 H 21 H 94/67 91 Nasal Cannula 3 04/09/24 10:00 04/09/24 11:00 04/09/24 11:00 04/09/24 11:00 04/09/24 11:00 04/09/24 11:00 04/09/24 11:00 Oxygen Flow Rate (L/min) 3 Oxygen Delivery Method Nasal Cannula Weight: 174 lb 6.17 oz Body Mass Index (BMI) 25.8 Intake & Output: Intake and Output for Last 24 Hours 04/07/24 04/08/24 04/09/24 23:59 23:59 23:59 Intake Total 561.06 / 569.39 556.60 / 556.60 Output Total 900 / 900 Balance 561.06 / 319.39 -343.40 / -343.40 Lab / Micro Data 04/09/24 07:36 04/09/24 07:36 Labs: Laboratory Results - last 24 hr 04/08/24 19:31: WBC 9.3, RBC 3.54 L, Hgb 10.9 L, Hct 34.6 L, MCV 97.7 H, MCH 30.8, MCHC 31.5 L, RDW Std Deviation 55.6 H, RDW Coeff of Esther 15.6 H, Plt Count 283, MPV 11.4, Immature Gran % (Auto) 0.300, Neut % (Auto) 68.1, Lymph % (Auto) 18.6 L, [place] % (Auto) 10.5 H, Eos % (Auto) 2.0, Baso % (Auto) 0.5, Absolute Neuts (auto) 6.3, Absolute Lymphs (auto) 1.73, Nucleated RBC % 0, Sodium 144, Potassium 4.9, Chloride 113 H, Carbon Dioxide 22.0, Anion Gap 9, BUN 47 H, Creatinine 1.25, Estim Creat Clear Calc 50.28, Est GFR (MDRD) Af Amer 72, Est GFR (MDRD) Non-Af 60, BUN/Creatinine Ratio 37.6 H, Glucose 116 H, Calcium 9.1, Troponin I High Sens 04/08/24 20:02: B-Natriuretic Peptide 813.6 H 04/08/24 22:26: Magnesium 2.1, Troponin I High Sens 04/08/24 23:47: Procalcitonin 0.20 H 04/09/24 01:37: Troponin I High Sens 04/09/24 07:36: WBC 7.6, RBC 3.39 L, Hgb 10.4 L, Hct 32.2 L, MCV 95.0 H, MCH 30.7, MCHC 32.3, RDW Std Deviation 54.3 H, RDW Coeff of Esther 15.8 H, Plt Count 241, MPV 11.4, Immature Gran % (Auto) 0.400, Neut % (Auto) 72.8 H, Lymph % (Auto) 14.1 L, [place] % (Auto) 10.4 H, Eos % (Auto) 1.8, Baso % (Auto) 0.5, Absolute Neuts (auto) 5.5, Absolute Lymphs (auto) 1.07, Nucleated RBC % 0.3, Sodium 142, Potassium 4.5, Chloride 112 H, Carbon Dioxide 23.0, Anion Gap 7, BUN 45 H, Creatinine 1.14, Estim Creat Clear Calc 55.13, Est GFR (MDRD) Af Amer 80, Est GFR (MDRD) Non-Af 66, BUN/Creatinine Ratio 39.5 H, Glucose 108 H, Calcium 8.9, Total Bilirubin 0.50, AST 10 L, ALT 24, Alkaline Phosphatase 119 H, Total Protein 6.5, Albumin 3.0 L, Globulin 3.5, Albumin/Globulin Ratio 0.9, Triglycerides 96, Cholesterol 65, LDL Cholesterol 17, VLDL Cholesterol 19, HDL Cholesterol 29 L, TSH 2.930 Micro: Microbiology 04/08/24 04:00 Urine, Clean Catch Legionella Antigen - Final 04/08/24 04:00 Urine, Clean Catch Streptococcus pneumoniae Antigen (M - Final 04/08/24 23:45 Mucosa - Nasopharyngeal Respiratory Panel (PCR) - Final 04/08/24 20:10 Mucosa - Nose SARS-CoV-2, Influenza & RSV (PCR) - Final Cardiology Labs/Tests 04/08/24 19:31: WBC 9.3, RBC 3.54 L, Hgb 10.9 L, Hct 34.6 L, MCV 97.7 H, MCH 30.8, MCHC 31.5 L, Plt Count 283, MPV 11.4, Immature Gran % (Auto) 0.300, Neut % (Auto) 68.1, Lymph % (Auto) 18.6 L, [place] % (Auto) 10.5 H, Eos % (Auto) 2.0, Baso % (Auto) 0.5, Absolute Neuts (auto) 6.3, Nucleated RBC % 0, Sodium 144, Potassium 4.9, Chloride 113 H, Carbon Dioxide 22.0, Anion Gap 9, BUN 47 H, Creatinine 1.25, Est GFR (MDRD) Af Amer 72, Est GFR (MDRD) Non-Af 60, B UN/Creatinine Ratio 37.6 H, Glucose 116 H, Calcium 9.1 04/08/24 20:02: B-Natriuretic Peptide 813.6 H 04/08/24 22:26: Magnesium 2.1 04/09/24 07:36: WBC 7.6, RBC 3.39 L, Hgb 10.4 L, Hct 32.2 L, MCV 95.0 H, MCH 30.7, MCHC 32.3, Plt Count 241, MPV 11.4, Immature Gran % (Auto) 0.400, Neut % (Auto) 72.8 H, Lymph % (Auto) 14.1 L, [place] % (Auto) 10.4 H, Eos % (Auto) 1.8, Baso % (Auto) 0.5, Absolute Neuts (auto) 5.5, Nucleated RBC % 0.3, Sodium 142, Potassium 4.5, Chloride 112 H, Carbon Dioxide 23.0, Anion Gap 7, BUN 45 H, Creatinine 1.14, Est GFR (MDRD) Af Amer 80, Est GFR (MDRD) Non-Af 66, B UN/Creatinine Ratio 39.5 H, Glucose 108 H, Calcium 8.9, Total Bilirubin 0.50, Triglycerides 96, Cholesterol 65, LDL Cholesterol 17, VLDL Cholesterol 19, HDL Cholesterol 29 L Rhythm: EKG: ECHO: Stress Test: Cardiac Cath: PCI: CT Surgery: Holter monitor: EPS: PPM: CXR: Chest CT Scan: Radiography Diagnostic Testing: Radiology Impression Chest X-Ray 04/08/24 20:15 IMPRESSION: 1. Bibasilar pulmonary opacities, left greater than right with likely left pleural effusion. Consider atelectasis and/or pneumonia. Possible superimposed pulmonary edema. 2. Borderline cardiomegaly and/or pericardial effusion. Electronically Signed: Thad Dang DO at 20:25 EST , Echocardiogram 04/08/24 23:38 Interpretation Summary The estimated ejection fraction is 25 %. Mildly dilated left ventricle. There is evidence of diastolic dysfunction. There is severe global hypokinesis of the left ventricle. Mildly dilated right ventricle. Mild to moderate global right ventricular systolic dysfunction. There is mild biatrial dilatation. Moderate (2+) mitral valve insufficiency. Mild aortic stenosis. Ordering Physician: Luba Villatoro Referring Physician: SANTOSH VELAZQUEZ Performed By: Oralia Hedrick RCS Chest X-Ray 04/09/24 05:40 IMPRESSION: Stable left basilar hazy opacity which may reflect an effusion and possible consolidation. Stable nonspecific right basilar opacity, may be secondary to atelectasis and/or pneumonia. Electronically Signed: Savi Longo MD at 14:15 EST ,
--- NOTE | 2024-04-09 16:20 | CASEMGMT ---
Addendum entered by Brittni Walker 04/09/24 18:59: Pt aware of [facility]'s criteria of being home-bound for HHC. Original Note: RN ROSA group fitness instructor ROSA to room to meet with patient for initial transition planning/care coordination assessment. RN ROSA introduced self and role at [facility]. Patient lying in bed, alert and oriented. Patient willing to participate in assessment and is able to answer all questions appropriately. Care providers, pharmacy, and demographics verified. PCP: Dr Humphrey Maher. Pt also sees PROJECT DEVELOPMENT LEADER, Moises @ [facility] every 6 months. Specialists: Dr Dahl, vascular; Dr Colby, radiology oncology; Dr Cohen (has appt 04/18), urologist; Dr Lloyd, continuous improvement analyst (has appt 04/13 @ 11 AM) [facility] Insurance: [facility] Human Prescription Benefit: yes LNOK: , Nandini Living Arrangements: Patient lives with in a single story home with 5 step with railing or ramp to enter the home. Patient states he is mostly independent at home w/ADL's. Pt and help each other. They share home mgnt tasks. Transportation: Pt drives. has her license but pt states she has not driven in a long time. Dtr will take him home @ discharge. DME: Patient has shower chair, cane, rollator, and cpap at home. He thinks he has a pulse ox, but is not sure. RN ROSA advised for him to purchase one, if he does not have one and made aware of locations that sell this. Pt does not have home O2. Home amb testing to be completed prior to discharge. Discussed home O2 set-up process, should pt qualify. Questions answered. Verbal list of DME companies provided. Pt chose [employer], should he qualify for O2. SNF/HHC: No previous HHC or SNF. Discussed HHC. Pt would like [facility] and declines wanting list of other HHC options, unless [facility] unable to accept. Call placed to [facility] and left re: referral. CM or dc medical laboratory assistant, Shazia, to f/u on Mon re: referral. Patient wishes to discharge home and denies needs or concerns at this time. CM to follow for discharge planning needs that may arise. Plan: Home w/HHC. Follow for possible home O2 @ dc. DGiauque BSN RN CM
[2024-04-09] MEDS: Lisinopril 20 MG Tablet PO (21:31)
[2024-04-09] MEDS: Atorvastatin Calcium 40 MG Tablet PO (21:32)
[2024-04-09] MEDS: Metoprolol Tartrate 50 MG Tablet PO (21:35)
--- NOTE | 2024-04-09 22:44 | CPS ---
[2200] Pt. placed on home CPAP unit with 4L oxygen bled-in machine.
[2024-04-10] VITALS (17 sets, daily range): BP systolic 91–108; BP diastolic 47–86; PULSE 60–128; RESP 14–20; TEMP 36.4–36.8; O2SAT 85–99; BMI 25.8
[2024-04-10] MEDS: Levothyroxine 75 MCG Tablet PO (06:39)
[2024-04-10] MEDS: Budesonide Respules 0.5 MG/2 ML AMPUL.NEB. INHALATION ×2 (07:05→18:51)
--- NOTE | 2024-04-10 07:35 | PN.HOSP_ITS ---
Reason for Visit Reason for Visit: Diagnoses Unspecified atrial fibrillation (04/08/24) Heart failure, unspecified (04/08/24) Heart disease, unspecified (04/08/24) Subjective Subjective Breathing well. BP has been low. Afib converted yesterday. Objective Data Objective Data Vital Signs: Vital Signs Temp Pulse Resp BP Pulse Ox O2 Del Method O2 Flow Rate 36.8 C 64 18 97/59 L 97 CPAP 3 04/10/24 03:09 04/10/24 03:09 04/10/24 03:09 04/10/24 03:09 04/10/24 03:09 04/10/24 03:09 04/10/24 03:09 Oxygen Flow Rate (L/min) 3 Oxygen Delivery Method CPAP Weight: 79.4 kg Body Mass Index (BMI) 25.8 Intake & Output: Intake and Output for Last 24 Hours 04/08/24 04/09/24 04/10/24 23:59 23:59 23:59 Intake Total 561.06 / 569.39 1105.98 / 1105.98 Output Total 1510 / 1510 300 / 300 Balance 561.06 / 319.39 -404.02 / -404.02 -300 / -300 Lab / Micro Data 04/09/24 07:36 04/10/24 06:58 Labs: Laboratory Results - last 24 hr 04/09/24 07:36: WBC 7.6, RBC 3.39 L, Hgb 10.4 L, Hct 32.2 L, MCV 95.0 H, MCH 30.7, MCHC 32.3, RDW Std Deviation 54.3 H, RDW Coeff of Esther 15.8 H, Plt Count 241, MPV 11.4, Immature Gran % (Auto) 0.400, Neut % (Auto) 72.8 H, Lymph % (Auto) 14.1 L, [place] % (Auto) 10.4 H, Eos % (Auto) 1.8, Baso % (Auto) 0.5, Absolute Neuts (auto) 5.5, Absolute Lymphs (auto) 1.07, Nucleated RBC % 0.3, Sodium 142, Potassium 4.5, Chloride 112 H, Carbon Dioxide 23.0, Anion Gap 7, BUN 45 H, Creatinine 1.14, Estim Creat Clear Calc 55.13, Est GFR (MDRD) Af Amer 80, Est GFR (MDRD) Non-Af 66, BUN/Creatinine Ratio 39.5 H, Glucose 108 H, Calcium 8.9, Total Bilirubin 0.50, AST 10 L, ALT 24, Alkaline Phosphatase 119 H, Total Protein 6.5, Albumin 3.0 L, Globulin 3.5, Albumin/Globulin Ratio 0.9, Triglycerides 96, Cholesterol 65, LDL Cholesterol 17, VLDL Cholesterol 19, HDL Cholesterol 29 L, TSH 2.930 Micro: Microbiology 04/08/24 04:00 Urine, Clean Catch Legionella Antigen - Final 04/08/24 04:00 Urine, Clean Catch Streptococcus pneumoniae Antigen (M - Final 04/08/24 23:45 Mucosa - Nasopharyngeal Respiratory Panel (PCR) - Final 04/08/24 20:10 Mucosa - Nose SARS-CoV-2, Influenza & RSV (PCR) - Final Radiography Diagnostic Testing: Radiology Impression Echocardiogram 04/08/24 23:38 Interpretation Summary The estimated ejection fraction is 25 %. Mildly dilated left ventricle. There is evidence of diastolic dysfunction. There is severe global hypokinesis of the left ventricle. Mildly dilated right ventricle. Mild to moderate global right ventricular systolic dysfunction. There is mild biatrial dilatation. Moderate (2+) mitral valve insufficiency. Mild aortic stenosis. Ordering Physician: Luba Villatoro Referring Physician: SANTOSH VELAZQUEZ Performed By: Oralia Hedrick RCS Chest X-Ray 04/09/24 05:40 IMPRESSION: Stable left basilar hazy opacity which may reflect an effusion and possible consolidation. Stable nonspecific right basilar opacity, may be secondary to atelectasis and/or pneumonia. Electronically Signed: Savi Longo MD at 14:15 EST , Physical Exam Const alert and no apparent distress HEENT head/scalp atraumatic and moist oral mucous membranes Neck Neck Narrative: +JVD. Resp normal respiratory effort and no retractions Resp Narrative: slight bibasilar crackles. Cardio regular rate, regular rhythm, S1 normal heart sound and S2 normal heart sound GI normal to inspection, nondistended, normoactive bowel sounds, soft to palpation, non-tender and non-distended Extremity General Extremity: edema bilateral lower extremity Details: mild Neuro Sensorium / Orientation: awake and alert Psych affect normal Assessment & Plan Assessment/Plan (1) Atrial fibrillation with RVR: (2) Acute exacerbation of chronic heart failure: PLAN: Plan Acute HFrEF * EF 25% (down from 65% on 05/08/2022) severe global hypokinesis, mildly dilated RV. Moderate [place], Mild . * furosemide 40 BID * follow up echo in 3 months. * change lisinopril 20 BID to 5/daily given low BP readings. Afib w RVR: * converted to NSR on 04/09. Completed amiodarone gtt. Continue apixaban. * Cards consult recommending changing metoprolol tartrate to succinate Chronic conditions: * Chronic COPD: Will maintain on oxygen with wean as tolerated to room air as noted, will maintain on ATC budesonide therapy, PRN albuterol, HOB, IS parameters. * CAD: Status post previous PCI in initially 2010 and follow-up 2022, will continue plavix, Eliquis, statin therapy, metoprolol, lisinopril regimen. * Carotid disease: Status post previous left-sided carotid endarterectomy, most recent duplex noted 12/04/2023 with normal right extracranial internal carotid, mild stenosis left extracranial internal carotid, patent antegrade vertebrals bilaterally. Will continue plavix, Eliquis, statin, hypertensive regimen with adjustments as noted. * hypertension: Continue home regimen including metoprolol, lisinopril, nifedipine, IV Lasix as noted above, PRN hydralazine. * Hyperlipidemia: Continue home statin regimen. AM FLP. * Chronic macrocytic anemia/iron deficiency anemia: Admission hemoglobin 10.9, MCV 97.7, baseline hemoglobin ranging 9-11, most recently 03/10/2024 hemoglobin 11.2, continue to trend, continue iron supplementation. * Valvular heart disease: 09/2023 ECHO with normal LV size, normal LV systolic function, LVEF 55%, PASP 42 mmHg with mild focal AV calcification, peak aortic valve gradient 21 mmHg, mean aortic valve gradient 11 mmHg. * Hypothyroidism: Continue patient on levothyroxine regimen, TSH requested. * History of prostate cancer: Previous radiation and outpatient injections ongoing, consider in remission, encourage continued outpatient follow-up with Urology as previously arranged. * GERD: We will continue patient on PPI. * Gout: Continue patient home allopurinol regimen. * Former tobacco use: Encourage continued tobacco cessation. * ORACIO: PAP therapy nightly DVT prophylaxis: not indicated as he is already on apixaban. Charges/Coding Visit Charges Inpatient E&M: 78456 Subs Hosp L2
[2024-04-10 07:49] LABS: Anion Gap 6 (5-15); BUN 45 mg/dL (7-18); BUN/Creat Ratio 38.1 RATIO (10-20); Calcium,Total 9.1 mg/dL (8.5-10.1); Chloride 113 mmol/L (98-107); Creatinine, Serum 1.18 mg/dL (0.70-1.30); EST Glomerular Filtration Rate 64 mL/min (>60); Est Glom Filt Rate - Afr Amer 77 mL/min (>60); Estimated Creatinine Clearance 53.26 ml/min; Glucose 100 mg/dL (74-106); Potassium 4.3 mmol/L (3.5-5.1); Sodium Level 141 mmol/L (136-145)
[2024-04-10] MEDS: Potassium Chloride Oral Tablet 10 MEQ PO (09:38)
[2024-04-10] MEDS: APIXABAN 5 MG TABLET PO ×2 (09:38→20:29)
[2024-04-10] MEDS: Clopidogrel Bisulfate 75 MG Tablet PO (09:38)
[2024-04-10] MEDS: Pantoprazole Sodium 40 MG Tablet PO (09:39)
[2024-04-10] MEDS: Allopurinol 300 MG Tablet PO (09:39)
--- NOTE | 2024-04-10 13:24 | EKG12_ITS ---
Test Reason : AF Blood Pressure : */* mmHG Vent. Rate : 136 BPM Atrial Rate : * BPM P-R Int : * ms QRS Dur : 94 ms QT Int : 346 ms P-R-T Axes : * 12 17 degrees QTcB Int : 520 ms Atrial fibrillation with rapid ventricular response Anteroseptal infarct , age undetermined Abnormal ECG When compared with ECG of 09-Apr-2024 13:48, MANUAL COMPARISON REQUIRED DATA IS UNCONFIRMED Confirmed by TYLER THOMAS, ZENY ([id number]), communications editor CANDICE SOL ([id number]) on 04/11/2024 1:56:35 PM Referred By: MOHSEN Confirmed By: ZENY SCOTT MD
[2024-04-10] MEDS: Metoprolol(XL)Succ 50 MG Tablet PO (13:41)
[2024-04-10] MEDS: Ferrous Sulfate 325 MG Tablet PO (16:08)
[2024-04-10] MEDS: Metoprolol Tartrate 5 MG/5 ML Vial IV (16:52)
--- NOTE | 2024-04-10 17:23 | PCM.PN.CARD ---
Subjective Subjective Shortness of breath is better. Patient [facility] with RVR. Objective Data Vital Signs: Vital Signs Temp Pulse Resp BP Pulse Ox O2 Del Method O2 Flow Rate 97.8 F 128 H 15 101/62 94 Nasal Cannula 2 04/10/24 12:20 04/10/24 16:52 04/10/24 14:00 04/10/24 14:00 04/10/24 14:00 04/10/24 14:00 04/10/24 14:00 Oxygen Flow Rate (L/min) 2 Oxygen Delivery Method Nasal Cannula Weight: 175 lb 0.752 oz Body Mass Index (BMI) 25.8 Intake & Output: Intake and Output for Last 24 Hours 04/08/24 04/09/24 04/10/24 23:59 23:59 23:59 Intake Total 561.06 / 569.39 1105.98 / 1105.98 250 / 250 Output Total 1510 / 1510 750 / 750 Balance 561.06 / 319.39 -404.02 / -404.02 -500 / -500 Lab / Micro Data 04/09/24 07:36 04/10/24 06:58 Labs: Laboratory Results - last 24 hr 04/10/24 06:58: Sodium 141, Potassium 4.3, Chloride 113 H, Carbon Dioxide 22.0, Anion Gap 6, BUN 45 H, Creatinine 1.18, Estim Creat Clear Calc 53.26, Est GFR (MDRD) Af Amer 77, Est GFR (MDRD) Non-Af 64, BUN/Creatinine Ratio 38.1 H, Glucose 100, Calcium 9.1 Cardiology Labs/Tests 04/10/24 06:58: Sodium 141, Potassium 4.3, Chloride 113 H, Carbon Dioxide 22.0, Anion Gap 6, BUN 45 H, Creatinine 1.18, Est GFR (MDRD) Af Amer 77, Est GFR (MDRD) Non-Af 64, BUN/Creatinine Ratio 38.1 H, Glucose 100, Calcium 9.1 Rhythm: EKG: ECHO: Stress Test: Cardiac Cath: PCI: CT Surgery: Holter monitor: EPS: PPM: CXR: Chest CT Scan: Physical Exam Const alert and oriented x3 HEENT normocephalic Eyes no scleral icterus Cardio Cardio Narrative: Irregular rhythm Extremity Extremity Narrative: 1+ bilateral pitting edema Assessment & Plan Assessment/Plan (1) Acute exacerbation of chronic heart failure: PLAN: Patient appears to be volume overloaded. Continue IV Lasix for another day. (2) Atrial fibrillation with RVR: PLAN: Patient converted to sinus rhythm when he was on IV amiodarone and is back in A-fib with RVR. Patient states that he was doing well when he was on p.o. amiodarone as an outpatient. He did have abnormal PFTs and amiodarone was stopped. We will start him back on p.o. amiodarone for now. As an outpatient that can either be switched to a different antiarrhythmic or patient may be considered for A-fib ablation. He may require EP referral as an outpatient. I will leave that up to his primary entry level recruiter. We will start him on amiodarone 200 mg p.o. twice daily for 3 days followed by 200 mg p.o. daily which was what he was taking previously as an outpatient. (3) LV dysfunction: PLAN: This could be tachycardia induced as patient could have had A-fib with RVR for while. He will need a repeat echo in 3 months to assess LV function. Will DC nifedipine. Continue lisinopril. At the time of discharge patient's metoprolol could be switched to metoprolol succinate. Charges/Coding Visit Charges Inpatient E&M: 30554 Subs Hosp L2
[2024-04-10] MEDS: Furosemide 40 MG/4 ML Vial IV (18:31)
[2024-04-10] MEDS: Amiodarone 200 MG Tablet PO (20:28)
[2024-04-10] MEDS: Atorvastatin Calcium 40 MG Tablet PO (20:29)
[2024-04-11] VITALS (26 sets, daily range): BP systolic 82–108; BP diastolic 55–91; PULSE 110–143; RESP 12–23; TEMP 36.2–36.7; O2SAT 91–98; BMI 24.6
[2024-04-11] MEDS: Levothyroxine 75 MCG Tablet PO (05:24)
[2024-04-11 06:38] LABS: Anion Gap 6 (5-15); BUN 40 mg/dL (7-18); BUN/Creat Ratio 39.6 RATIO (10-20); Chloride 112 mmol/L (98-107); Creatinine, Serum 1.01 mg/dL (0.70-1.30); EST Glomerular Filtration Rate 76 mL/min (>60); Est Glom Filt Rate - Afr Amer 92 mL/min (>60); Estimated Creatinine Clearance 62.22 ml/min; Glucose 101 mg/dL (74-106); Potassium 4.5 mmol/L (3.5-5.1); Sodium Level 141 mmol/L (136-145)
[2024-04-11] MEDS: Budesonide Respules 0.5 MG/2 ML AMPUL.NEB. INHALATION ×2 (07:36→20:27)
[2024-04-11] MEDS: APIXABAN 5 MG TABLET PO ×2 (08:14→22:08)
[2024-04-11] MEDS: Potassium Chloride Oral Tablet 10 MEQ PO (08:15)
[2024-04-11] MEDS: Amiodarone 200 MG Tablet PO ×2 (08:15→22:08)
[2024-04-11] MEDS: Clopidogrel Bisulfate 75 MG Tablet PO (08:16)
[2024-04-11] MEDS: Pantoprazole Sodium 40 MG Tablet PO (08:16)
[2024-04-11] MEDS: Allopurinol 300 MG Tablet PO (08:17)
--- NOTE | 2024-04-11 08:22 | NURSING ---
Patient entered manually and AM medications entered manually due to scanner not working.
[2024-04-11] MEDS: Metoprolol(XL)Succ 50 MG Tablet PO ×3 (09:13→22:08)
--- NOTE | 2024-04-11 13:47 | CHAPLAIN ---
Type of Pastoral Visit _x__ Initial Visit ___ Follow-up Visit ___ On-call Visit ___ General Patient Visit ___ Spiritual Assessment ___ Family Conference ___ Bereavement ___ Rapid Response ___ Code Blue ___ Other (describe below) Pastoral Care Referral From _x__ Patient ___ Family ___ Nurse ___ Physician ___ Cooler Operator ___ Solderer Barrel Ribs ___ Other (describe below) Sacrament/Intervention _x__ Active listening ___ Anointing ___ Spiritism ___ Bereavement ___ Communion _x__ Sera exploration ___ _x__ Life review _x__ Prayer ___ Reconciliation ___ Sacrament of Sick _x__ Supportive presence ___ Wedding ___ Other (describe below) Pastoral Comments patient is welcoming and explains the situation especially with the Afib; pt states that he is improving and hopes to go home; pt gives some life review and shows some humor; at inquiry of christianity and spiritual support the patient indicates that he last attended tenriism services in [place] in 1968 and hasn't ever gone back to tenriism since then; 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
[2024-04-11] MEDS: Ferrous Sulfate 325 MG Tablet PO ×2 (13:56→17:47)
[2024-04-11] MEDS: 0.9% Saline Lock 10 ML Syringe IV (13:57)
[2024-04-11] MEDS: Furosemide 20 MG/2 ML VIAL IV (14:01)
--- NOTE | 2024-04-11 15:07 | PN.CARD_ITS ---
Subjective Subjective Patient is feeling good. Unfortunately he continues to be in A-fib with RVR. Objective Data Vital Signs: Vital Signs Temp Pulse Resp BP Pulse Ox O2 Del Method O2 Flow Rate 97.5 F L 143 H 19 H 94/55 L 98 Room Air 2 04/11/24 12:00 04/11/24 14:05 04/11/24 14:00 04/11/24 14:00 04/11/24 14:05 04/11/24 14:05 04/11/24 11:00 Oxygen Flow Rate (L/min) 2 Oxygen Delivery Method Room Air Weight: 166 lb 10.711 oz Body Mass Index (BMI) 24.6 Intake & Output: Intake and Output for Last 24 Hours 04/09/24 04/10/24 04/11/24 23:59 23:59 23:59 Intake Total 1105.98 / 1105.98 450 / 450 420 / 420 Output Total 1510 / 1510 1150 / 1150 150 / 150 Balance -404.02 / -404.02 -700 / -700 270 / 270 Lab / Micro Data 04/09/24 07:36 04/11/24 06:00 Labs: Laboratory Results - last 24 hr 04/11/24 06:00: Sodium 141, Potassium 4.5, Chloride 112 H, Carbon Dioxide 24.0, Anion Gap 6, BUN 40 H, Creatinine 1.01, Estim Creat Clear Calc 62.22, Est GFR (MDRD) Af Amer 92, Est GFR (MDRD) Non-Af 76, BUN/Creatinine Ratio 39.6 H, Glucose 101, Calcium 9.0 Cardiology Labs/Tests 04/11/24 06:00: Sodium 141, Potassium 4.5, Chloride 112 H, Carbon Dioxide 24.0, Anion Gap 6, BUN 40 H, Creatinine 1.01, Est GFR (MDRD) Af Amer 92, Est GFR (MDRD) Non-Af 76, BUN/Creatinine Ratio 39.6 H, Glucose 101, Calcium 9.0 Rhythm: EKG: ECHO: Stress Test: Cardiac Cath: PCI: CT Surgery: Holter monitor: EPS: PPM: CXR: Chest CT Scan: Physical Exam Const alert and oriented x3 HEENT normocephalic Eyes no scleral icterus Assessment & Plan Assessment/Plan (1) Acute exacerbation of chronic heart failure: PLAN: Switch to p.o. Lasix tomorrow (2) Atrial fibrillation with RVR: PLAN: Patient converted to sinus rhythm when he was on IV amiodarone and is back in A-fib with RVR. Patient states that he was doing well when he was on p.o. amiodarone as an outpatient. He did have abnormal PFTs and amiodarone was stopped. We will start him back on p.o. amiodarone for now. As an outpatient that can either be switched to a different antiarrhythmic or patient may be considered for A-fib ablation. He may require EP referral as an outpatient. I will leave that up to his primary paper roller. Continue p.o. amiodarone. Will consider cardioversion tomorrow if he continues to remain in A-fib with RVR. Patient has been on Eliquis without interruption for over a year. (3) LV dysfunction: PLAN: This could be tachycardia induced as patient could have had A-fib with RVR for while. He will need a repeat echo in 3 months to assess LV function. Will DC nifedipine. Continue lisinopril. At the time of discharge patient's metoprolol could be switched to metoprolol succinate. Charges/Coding Visit Charges Inpatient E&M: 09286 [facility] [[email or web address]] Hosp L1
--- NOTE | 2024-04-11 18:11 | PN.HOSP_ITS ---
Reason for Visit Reason for Visit: Diagnoses Unspecified atrial fibrillation (04/08/24) Heart failure, unspecified (04/08/24) Heart disease, unspecified (04/08/24) Subjective Subjective Patient was seen and examined today, he still remains in atrial fibrillation with rates in the 130s and 140s at times. I elected to increase the patient's metoprolol today. I also placed him on a lower dose of IV Lasix. I talked briefly with cardiology about his care. Objective Data Objective Data Vital Signs: Vital Signs Temp Pulse Resp BP Pulse Ox O2 Del Method O2 Flow Rate 97.5 F L 141 H 16 104/79 92 Room Air 2 04/11/24 12:00 04/11/24 15:42 04/11/24 15:42 04/11/24 15:42 04/11/24 15:42 04/11/24 15:42 04/11/24 11:00 Oxygen Flow Rate (L/min) 2 Oxygen Delivery Method Room Air Weight: 75.6 kg Body Mass Index (BMI) 24.6 Intake & Output: Intake and Output for Last 24 Hours 04/09/24 04/10/24 04/11/24 23:59 23:59 23:59 Intake Total 1105.98 / 1105.98 450 / 450 780 / 780 Output Total 1510 / 1510 1150 / 1150 1000 / 1000 Balance -404.02 / -404.02 -700 / -700 -220 / -220 Lab / Micro Data 04/09/24 07:36 04/11/24 06:00 Labs: Laboratory Results - last 24 hr 04/11/24 06:00: Sodium 141, Potassium 4.5, Chloride 112 H, Carbon Dioxide 24.0, Anion Gap 6, BUN 40 H, Creatinine 1.01, Estim Creat Clear Calc 62.22, Est GFR (MDRD) Af Amer 92, Est GFR (MDRD) Non-Af 76, BUN/Creatinine Ratio 39.6 H, Glucose 101, Calcium 9.0 Micro: Microbiology 04/08/24 04:00 Urine, Clean Catch Legionella Antigen - Final 04/08/24 04:00 Urine, Clean Catch Streptococcus pneumoniae Antigen (M - Final 04/08/24 23:45 Mucosa - Nasopharyngeal Respiratory Panel (PCR) - Final 04/08/24 20:10 Mucosa - Nose SARS-CoV-2, Influenza & RSV (PCR) - Final Physical Exam Const alert, oriented x3, no apparent distress and average body habitus General Appearance: cooperative, well kempt and well developed Orientation / Consciousness: awake, oriented to person, oriented to place and oriented to time HEENT normocephalic, head/scalp atraumatic and moist oral mucous membranes Eyes PERRL, EOMs intact bilaterally and conjunctivae normal Neck supple, no JVD, thyroid normal and no carotid bruits General: trachea midline Resp normal respiratory effort, no retractions, no use of accessory muscles and clear to auscultation bilaterally Auscultation: Negative for rales, rhonchi or wheezes Cardio S1 normal heart sound, S2 normal heart sound, no murmurs, no rub and no gallops Cardio Narrative: Heart rate and rhythm is irregular GI normal to inspection, nondistended, normoactive bowel sounds, soft to palpation, non-tender and non-distended Extremity no clubbing, cyanosis or edema Skin no rashes or lesions noted General Skin Exam: no breakdown Neuro oriented x3, CN's II-XII intact bilaterally, moves all extremities, no focal motor deficits and no sensory deficits noted Sensorium / Orientation: awake and alert Speech: speech normal Psych affect normal Assessment & Plan Assessment/Plan (1) Atrial fibrillation with RVR: PLAN: Plan 1. Atrial fibrillation with RVR-patient remains on amiodarone and a beta- kaylene, cardiology may elect to do a cardioversion on the patient if his rate does not come under control #2 acute exacerbation of chronic systolic congestive heart failure-patient will remain on IV Lasix for now, patient's LV function could be decreased due to his tachycardia, echocardiogram will need to be repeated in the near future #3 coronary artery disease-stable at this time according to the medical record, patient has residual circumflex stenosis is being treated medically #4 essential hypertension-patient will remain on his current blood pressure medications, his systolic blood pressure has been running in the 90s, blood pressure will continue to be monitored #5 hypothyroidism-patient is on Synthroid Total clinical time spent by myself addressing the patient's medical issues, reviewing all of his data, and collaborating with patient's care team: 35 minutes Charges/Coding Visit Charges Inpatient E&M: 59798 Subs Hosp L2
[2024-04-11] MEDS: Atorvastatin Calcium 40 MG Tablet PO (22:08)
[2024-04-12] VITALS (15 sets, daily range): BP systolic 85–114; BP diastolic 53–98; PULSE 96–131; RESP 14–20; TEMP 36.4–36.9; O2SAT 94–97; BMI 24.1
[2024-04-12] MEDS: Furosemide 20 MG/2 ML VIAL IV (01:06)
--- NOTE | 2024-04-12 05:55 | EKG12_ITS ---
Test Reason : AM EKG Blood Pressure : */* mmHG Vent. Rate : 116 BPM Atrial Rate : * BPM P-R Int : * ms QRS Dur : 96 ms QT Int : 378 ms P-R-T Axes : * 13 7 degrees QTcB Int : 525 ms Atrial fibrillation with rapid ventricular response Prolonged QT Abnormal ECG When compared with ECG of 10-Apr-2024 13:00, No significant change was found Reconfirmed by TYLER THOMAS, ZENY ([id number]), writer editor CANDICE SOL ([id number]) on 04/13/2024 7:56:42 A M Referred By: KOLTON Confirmed By: ZENY SCOTT MD
[2024-04-12 06:06] LABS: Absolute Neutrophil Count 5.6 X10^3/uL (2.0-7.7); Basophil# 0.03 X10^3/uL; Basophil% 0.4 % (0-1); Eosinophil# 0.19 X10^3/uL; Eosinophils% 2.5 % (0-5); Hematocrit 35.5 % (40-54); Lymphocyte % 13.3 % (19-41); Mean Corpuscular Hgb 29.7 pg (27.0-32.0); Mean Corpuscular Volume 95.9 fL (80-94); Monocyte# 0.63 X10^3/uL; Monocyte% 8.4 % (0-10); NRBC Flagged by Analyzer 0 % (0-5); Neutrophil # 5.63 X10^3/uL (2.7-7.7); Platelet Count 248 K/mm3 (150-450); RBC Distribution Width CV 15.7 % (11.6-14.6); White Blood Count 7.5 K/mm3 (4.4-11.0)
[2024-04-12 06:40] LABS: Anion Gap 6 (5-15); BUN 34 mg/dL (7-18); BUN/Creat Ratio 35.5 RATIO (10-20); Calcium,Total 8.9 mg/dL (8.5-10.1); Chloride 111 mmol/L (98-107); Creatinine, Serum 0.96 mg/dL (0.70-1.30); EST Glomerular Filtration Rate 81 mL/min (>60); Est Glom Filt Rate - Afr Amer 98 mL/min (>60); Estimated Creatinine Clearance 65.46 ml/min; Glucose 109 mg/dL (74-106); Potassium 4.3 mmol/L (3.5-5.1); Sodium Level 144 mmol/L (136-145)
[2024-04-12] MEDS: Budesonide Respules 0.5 MG/2 ML AMPUL.NEB. INHALATION ×2 (07:34→21:02)
[2024-04-12] MEDS: APIXABAN 5 MG TABLET PO ×2 (09:46→22:44)
[2024-04-12] MEDS: Clopidogrel Bisulfate 75 MG Tablet PO (09:46)
[2024-04-12] MEDS: Metoprolol(XL)Succ 50 MG Tablet PO (09:46)
[2024-04-12] MEDS: Amiodarone 200 MG Tablet PO ×2 (09:46→22:44)
[2024-04-12] MEDS: Metoprolol Tartrate 50 MG Tablet PO (10:41)
[2024-04-12] MEDS: Pantoprazole Sodium 40 MG Tablet PO (10:41)
[2024-04-12] MEDS: Potassium Chloride Oral Tablet 10 MEQ PO (10:41)
[2024-04-12] MEDS: Allopurinol 300 MG Tablet PO (10:42)
[2024-04-12] MEDS: Ferrous Sulfate 325 MG Tablet PO ×2 (10:42→16:11)
--- NOTE | 2024-04-12 11:15 | PN.CARD_ITS ---
Subjective Subjective Patient continues to remain asymptomatic. Unfortunately he is still in A-fib with RVR. His heart rate is slightly improved compared to yesterday but still in the 120s. Objective Data Vital Signs: Vital Signs Temp Pulse Resp BP Pulse Ox O2 Del Method O2 Flow Rate 98.4 F 128 H 18 104/69 95 Nasal Cannula 1 04/12/24 08:19 04/12/24 10:41 04/12/24 08:19 04/12/24 10:41 04/12/24 08:19 04/12/24 08:19 04/12/24 08:19 Oxygen Flow Rate (L/min) 1 Oxygen Delivery Method Nasal Cannula Weight: 163 lb 5.8 oz Body Mass Index (BMI) 24.1 Intake & Output: Intake and Output for Last 24 Hours 04/10/24 04/11/24 04/12/24 23:59 23:59 23:59 Intake Total 450 / 450 780 / 780 Output Total 1150 / 1150 1000 / 1200 750 / 750 Balance -700 / -700 -220 / -420 -750 / -750 Lab / Micro Data 04/12/24 05:34 04/12/24 05:34 Labs: Laboratory Results - last 24 hr 04/12/24 05:34: WBC 7.5, RBC 3.70 L, Hgb 11.0 L, Hct 35.5 L, MCV 95.9 H, MCH 29.7, MCHC 31.0 L, RDW Std Deviation 54.0 H, RDW Coeff of Esther 15.7 H, Plt Count 248, MPV 11.0, Immature Gran % (Auto) 0.400, Neut % (Auto) 75.0 H, Lymph % (Auto) 13.3 L, [place] % (Auto) 8.4, Eos % (Auto) 2.5, Baso % (Auto) 0.4, Absolute Neuts (auto) 5.6, Absolute Lymphs (auto) 1.00, Nucleated RBC % 0, Sodium 144, Potassium 4.3, Chloride 111 H, Carbon Dioxide 27.0, Anion Gap 6, BUN 34 H, Creatinine 0.96, Estim Creat Clear Calc 65.46, Est GFR (MDRD) Af Amer 98, Est GFR (MDRD) Non-Af 81, BUN/Creatinine Ratio 35.5 H, Glucose 109 H, Calcium 8.9, TSH 2.910 Cardiology Labs/Tests 04/12/24 05:34: WBC 7.5, RBC 3.70 L, Hgb 11.0 L, Hct 35.5 L, MCV 95.9 H, MCH 29.7, MCHC 31.0 L, Plt Count 248, MPV 11.0, Immature Gran % (Auto) 0.400, Neut % (Auto) 75.0 H, Lymph % (Auto) 13.3 L, [place] % (Auto) 8.4, Eos % (Auto) 2.5, Baso % (Auto) 0.4, Absolute Neuts (auto) 5.6, Nucleated RBC % 0, Sodium 144, Potassium 4.3, Chloride 111 H, Carbon Dioxide 27.0, Anion Gap 6, BUN 34 H, Creatinine 0.96, Est GFR (MDRD) Af Amer 98, Est GFR (MDRD) Non-Af 81, B UN/Creatinine Ratio 35.5 H, Glucose 109 H, Calcium 8.9 Rhythm: EKG: ECHO: Stress Test: Cardiac Cath: PCI: CT Surgery: Holter monitor: EPS: PPM: CXR: Chest CT Scan: Physical Exam Const alert and oriented x3 HEENT normocephalic Eyes no scleral icterus Resp normal respiratory effort Cardio Cardio Narrative: Irregular rhythm Extremity Extremity Narrative: 1+ pitting edema Skin no rashes or lesions noted Psych mental status grossly normal Assessment & Plan Assessment/Plan (1) Acute exacerbation of chronic heart failure: PLAN: Switch to p.o. Lasix tomorrow (2) Atrial fibrillation with RVR: PLAN: Patient converted to sinus rhythm when he was on IV amiodarone and is back in A-fib with RVR. Patient states that he was doing well when he was on p.o. amiodarone as an outpatient. He did have abnormal PFTs and amiodarone was stopped. We will start him back on p.o. amiodarone for now. As an outpatient that can either be switched to a different antiarrhythmic or patient may be considered for A-fib ablation. He may require EP referral as an outpatient. I will leave that up to his primary motorsports technician. Continue p.o. amiodarone. Will consider cardioversion tomorrow if he continues to remain in A-fib with RVR. Patient has been on Eliquis without interruption for over a year. We will increase his beta-kaylene and try 1 dose of IV Cardizem to see if we can slow his rate. We will decrease his lisinopril to allow for increase in the beta- kaylene (3) LV dysfunction: PLAN: This could be tachycardia induced as patient could have had A-fib with RVR for while. He will need a repeat echo in 3 months to assess LV function. Will DC nifedipine. Continue lisinopril. At the time of discharge patient's metoprolol could be switched to metoprolol succinate. Charges/Coding Visit Charges Inpatient E&M: 25439 [facility] Hosp L1
[2024-04-12] MEDS: dilTIAZem 25 MG/5 ML Vial 15 MG IV BOLUS (12:18)
[2024-04-12] MEDS: 0.9% Saline Lock 10 ML Syringe IV ×3 (12:19→20:31)
[2024-04-12] MEDS: dilTIAZem 25 MG/5 ML Vial 10 MG IV BOLUS (13:40)
[2024-04-12] MEDS: Digoxin 250 MCG/ML Ampul 500 MCG IV (13:47)
--- NOTE | 2024-04-12 14:47 | PN.HOSP_ITS ---
Reason for Visit Reason for Visit: Diagnoses Unspecified atrial fibrillation (04/08/24) Heart failure, unspecified (04/08/24) Heart disease, unspecified (04/08/24) Subjective Subjective Patient was seen and examined today, I increased the patient's beta-kaylene today to 100 mg twice daily and gave the patient 25 mg of IV Cardizem which slowed his rate down into the 80s and 90s. Patient did however remain in A-fib, I talked with cardiology today and we have decided to give the patient IV Lanoxin to see if this would lower his rate, I gave 500 mcg IV x 1 and will follow-up with 2 separate dosages of 250 mcg 6 hours from now and then 6 hours later. Patient's blood pressure has been running in the high 80s and 90s systolic, patient is asymptomatic. I have elected to stop the patient's IV Lasix and reduce his lisinopril. Objective Data Objective Data Vital Signs: Vital Signs Temp Pulse Resp BP Pulse Ox O2 Del Method O2 Flow Rate 98.3 F 97 16 85/53 L 96 Room Air 1 04/12/24 12:00 04/12/24 13:47 04/12/24 12:00 04/12/24 13:47 04/12/24 12:00 04/12/24 12:00 04/12/24 11:28 Oxygen Flow Rate (L/min) 1 Oxygen Delivery Method Room Air Weight: 74.1 kg Body Mass Index (BMI) 24.1 Intake & Output: Intake and Output for Last 24 Hours 04/10/24 04/11/24 04/12/24 23:59 23:59 23:59 Intake Total 450 / 450 780 / 780 200 / 200 Output Total 1150 / 1150 1000 / 1200 900 / 900 Balance -700 / -700 -220 / -420 -700 / -700 Lab / Micro Data 04/12/24 05:34 04/12/24 05:34 Labs: Laboratory Results - last 24 hr 04/12/24 05:34: WBC 7.5, RBC 3.70 L, Hgb 11.0 L, Hct 35.5 L, MCV 95.9 H, MCH 29.7, MCHC 31.0 L, RDW Std Deviation 54.0 H, RDW Coeff of Esther 15.7 H, Plt Count 248, MPV 11.0, Immature Gran % (Auto) 0.400, Neut % (Auto) 75.0 H, Lymph % (Auto) 13.3 L, [facility] % (Auto) 8.4, Eos % (Auto) 2.5, Baso % (Auto) 0.4, Absolute Neuts (auto) 5.6, Absolute Lymphs (auto) 1.00, Nucleated RBC % 0, Sodium 144, Potassium 4.3, Chloride 111 H, Carbon Dioxide 27.0, Anion Gap 6, BUN 34 H, Creatinine 0.96, Estim Creat Clear Calc 65.46, Est GFR (MDRD) Af Amer 98, Est GFR (MDRD) Non-Af 81, BUN/Creatinine Ratio 35.5 H, Glucose 109 H, Calcium 8.9, TSH 2.910 Micro: Microbiology 04/08/24 04:00 Urine, Clean Catch Legionella Antigen - Final 04/08/24 04:00 Urine, Clean Catch Streptococcus pneumoniae Antigen (M - Final 04/08/24 23:45 Mucosa - Nasopharyngeal Respiratory Panel (PCR) - Final 04/08/24 20:10 Mucosa - Nose SARS-CoV-2, Influenza & RSV (PCR) - Final Physical Exam Narrative alert, oriented x3, no apparent distress and average body habitus General Appearance: cooperative, well kempt and well developed Orientation / Consciousness: awake, oriented to person, oriented to place and oriented to time HEENT normocephalic, head/scalp atraumatic and moist oral mucous membranes Eyes PERRL, EOMs intact bilaterally and conjunctivae normal Neck supple, no JVD, thyroid normal and no carotid bruits General: trachea midline Resp normal respiratory effort, no retractions, no use of accessory muscles and clear to auscultation bilaterally Auscultation: Negative for rales, rhonchi or wheezes Cardio S1 normal heart sound, S2 normal heart sound, no murmurs, no rub and no gallops Cardio Narrative: Heart rate and rhythm is irregular GI normal to inspection, nondistended, normoactive bowel sounds, soft to palpation, non-tender and non-distended Extremity no clubbing, cyanosis or edema Skin no rashes or lesions noted General Skin Exam: no breakdown Neuro oriented x3, CN's II-XII intact bilaterally, moves all extremities, no focal motor deficits and no sensory deficits noted Sensorium / Orientation: awake and alert Speech: speech normal Psych affect normal Assessment & Plan Assessment/Plan (1) Atrial fibrillation with RVR: PLAN: Plan 1. Atrial fibrillation with RVR-patient remains on amiodarone and a beta- kaylene, cardiology may elect to do a cardioversion on the patient if his rate does not come under control, I have added IV Lanoxin to the patient's medications #2 acute exacerbation of chronic systolic congestive heart failure-patient's diuretics were stopped due to his low blood pressure, patient is currently on room air #3 coronary artery disease-stable at this time according to the medical record, patient has residual circumflex stenosis is being treated medically #4 essential hypertension-patient will remain on his current blood pressure medications, his systolic blood pressure has been running in the 90s, blood pressure will continue to be monitored #5 hypothyroidism-patient is on Synthroid Total clinical time spent by myself addressing the patient's medical issues, reviewing all of his data, and collaborating with patient's care team: 35 minutes Charges/Coding Visit Charges Inpatient E&M: 68461 Subs Hosp L2
[2024-04-12] MEDS: Digoxin 250 MCG/ML Ampul IV (20:30)
[2024-04-12] MEDS: Atorvastatin Calcium 40 MG Tablet PO (22:44)
[2024-04-12] MEDS: Metoprolol(XL)Succ 100 MG Tablet PO (22:46)
[2024-04-13] VITALS (8 sets, daily range): BP systolic 111–125; BP diastolic 56–66; PULSE 74–112; RESP 15–20; TEMP 36.6; O2SAT 92–97; BMI 24.3
[2024-04-13] MEDS: Digoxin 250 MCG/ML Ampul IV (05:00)
[2024-04-13] MEDS: Levothyroxine 75 MCG Tablet PO (05:01)
[2024-04-13] MEDS: Budesonide Respules 0.5 MG/2 ML AMPUL.NEB. INHALATION (07:28)
[2024-04-13] MEDS: APIXABAN 5 MG TABLET PO (10:27)
[2024-04-13] MEDS: Amiodarone 200 MG Tablet PO (10:28)
[2024-04-13] MEDS: Lisinopril 2.5 MG Tablet PO (10:28)
[2024-04-13] MEDS: Allopurinol 300 MG Tablet PO (10:28)
[2024-04-13] MEDS: Potassium Chloride Oral Tablet 10 MEQ PO (10:28)
[2024-04-13] MEDS: Pantoprazole Sodium 40 MG Tablet PO (10:28)
[2024-04-13] MEDS: Ferrous Sulfate 325 MG Tablet PO (10:28)
[2024-04-13] MEDS: Clopidogrel Bisulfate 75 MG Tablet PO (10:28)
[2024-04-13] MEDS: Metoprolol(XL)Succ 100 MG Tablet PO (12:40)
--- NOTE | 2024-04-13 12:59 | DCINST_ITS ---
Discharge Instructions Diet Discharge Diet: No restrictions DC O2, CPAP, BIPAP needs RN Home O2 Qualification: Home O2 Qualification: Is the patient on home oxygen No 04/13/24 13:20 Home O2 Qualification: AT REST 1- Pulse Ox at rest 97 04/13/24 13:20 Home O2 Qualification: WITH AMBULATION 1- Pulse Ox with ambulation 92 04/13/24 13:20 1- Oxygen Flow Rate with 0 04/13/24 13:20 ambulation 2- Pulse Ox with ambulation 90 04/10/24 07:59 2- Oxygen Flow Rate with 2 04/10/24 07:59 ambulation Home O2 Discharge instructions: No Dressing / Incision Discharge Activity: Return to Normal Activity Weight Bearing Status: Full weight bearing Follow Up Care Test Results: Test results from this visit will be discussed in further detail at your follow- up appointment, if applicable. Discharge Plan Admission Admit Date/Time: 04/08/24 22:17 Primary Reason for Your Visit: Atrial fibrillation, congestive heart failure Attending Provider: Patel Westbrook Primary Care Provider: Humphrey Maher Consulting Providers: Colin Vance; Luba Villatoro; Blade Wright Discharge Orders/Prescriptions Prescriptions: New metoprolol succinate 100 mg Tablet Extended Release 24 Hr 100 mg PO BID Qty: 60 0RF lisinopril 2.5 mg Tablet 2.5 mg PO DAILY Qty: 30 0RF digoxin [Lanoxin] 125 mcg (0.125 mg) tablet 125 mcg PO DAILY Qty: 30 0RF Continued albuterol sulfate [ProAir HFA] 90 mcg/actuation HFA aerosol inhaler 2 puff INHALATION Q6H PRN (Reason: Wheezing) cholecalciferol (vitamin D3) 1,000 unit capsule 3,000 unit PO DAILY Spiriva Respimat 2.5 mcg/actuation mist 2 inh inhalation QAM Eliquis 5 mg tablet 5 mg PO BID levothyroxine 75 mcg capsule 75 mcg PO DAILY nitroglycerin 0.4 mg tablet, sublingual 0.4 mg sublingual Q5-15M Qty: 20 4RF (DME) Handicap placard See Rx Instructions .Route .MEDSUPPLY Qty: 1 0RF Rx Instructions: Duration 5 years, Diagnosis CAD, Prostate CA ferrous sulfate 325 mg (65 mg iron) tablet 325 mg PO BID Qty: 90 3RF atorvastatin 40 mg tablet 40 mg PO QHS Qty: 90 3RF pantoprazole 40 mg tablet,delayed release (DR/EC) 40 mg PO QDAY clopidogrel [Plavix] 75 mg tablet 75 mg PO QDAY Patient Comments: SEE NOTES furosemide 20 mg tablet 20 mg PO DAILY Qty: 90 3RF potassium chloride 10 mEq tablet extended release 10 meq PO DAILY Qty: 90 3RF allopurinol 300 mg tablet 300 mg PO QDAY Qty: 90 1RF nifedipine 90 mg tablet extended release 24hr 90 mg PO QDAY Qty: 90 3RF Discontinued metoprolol tartrate 25 mg tablet 25 mg PO BID Qty: 180 3RF lisinopril 20 mg tablet 20 mg PO BID Qty: 180 3RF Referrals / Follow Up: Brendan Lloyd MD [Med Staff - Active Staff] - See Referral Note (The office will contact you regarding an appointment in April) Humphrey Maher DO [Primary Care Provider] - Within 1 Month Disposition Disposition (needs filled in before D/C Order can be placed): Home, Self Care
--- NOTE | 2024-04-13 13:36 | DS.PCM_ITS ---
Providers Date of Admission: 04/08/24 Date of Discharge: 04/13/24 Primary Care Physician: Dr. Humphrey Maher, DO Consultations 04/08/24 23:38 Consult: Cardiology Routine Consulting Provider: Colin Vance Reason for Consult: HF, PAF RVR EMERGENT Consult: No MD Notified: Yes Date Notified: 04/08/24 Time Notified: 23:12 Method of Notification: ED Physician Initiated Reason For Visit: HYPOXIA, HF EXAC, PAF RVR Diagnosis Discharge Diagnosis (1) Atrial fibrillation with RVR: Status: Acute Code(s): I48.91 - Unspecified atrial fibrillation Plan 1. Atrial fibrillation with RVR-patient remains on amiodarone and a beta- kaylene, cardiology may elect to do a cardioversion on the patient if his rate does not come under control, I have added IV Lanoxin to the patient's medications #2 acute exacerbation of chronic systolic congestive heart failure-patient's diuretics were stopped due to his low blood pressure, patient is currently on room air #3 coronary artery disease-stable at this time according to the medical record, patient has residual circumflex stenosis is being treated medically #4 essential hypertension-patient will remain on his current blood pressure medications, his systolic blood pressure has been running in the 90s, blood pressure will continue to be monitored #5 hypothyroidism-patient is on Synthroid Total clinical time spent by myself addressing the patient's medical issues, reviewing all of his data, and collaborating with patient's care team: 35 minutes Medications at Discharge Home Medications clopidogrel 75 mg tablet (Plavix) 75 mg PO QDAY CLOTTING 05/22/17 pantoprazole 40 mg tablet,delayed release 40 mg PO QDAY GERD 05/22/17 albuterol sulfate 90 mcg/actuation aerosol inhaler (ProAir HFA) 2 puff inhalation Q6H PRN Wheezing 07/20/17 cholecalciferol (vitamin D3) 25 mcg (1,000 unit) capsule 3,000 unit PO DAILY VITAMIN 04/01/18 tiotropium bromide 2.5 mcg/actuation mist for inhalation (Spiriva Respimat) 2 inh inhalation QAM COPD 01/23/21 apixaban 5 mg tablet (Eliquis) 5 mg PO BID BLOOD THINNER 04/07/23 levothyroxine 75 mcg capsule 75 mcg PO DAILY HYPOTHYROID 04/14/23 furosemide 20 mg tablet 20 mg PO DAILY EDEMA #90 TABLETS 08/11/23 potassium chloride 10 mEq tablet,extended release 10 meq PO DAILY LOW POTASSIUM #90 TABLETS 08/11/23 Handicap placard #1 ea 08/12/23 nitroglycerin 0.4 mg sublingual tablet 0.4 mg sublingual Q5-15M CHEST PAIN #20 tabs 08/12/23 atorvastatin 40 mg tablet 40 mg PO QHS HYPERLIPIDEMIA #90 tabs 09/29/23 ferrous sulfate 325 mg (65 mg iron) tablet 325 mg PO BID #90 tabs 02/02/24 allopurinol 300 mg tablet 300 mg PO QDAY GOUT #90 tabs 02/23/24 nifedipine 90 mg tablet,extended release 24 hr 90 mg PO QDAY HYPERTENSION #90 tabs 03/17/24 digoxin 125 mcg (0.125 mg) tablet (Lanoxin) 125 mcg PO DAILY #30 tabs 04/13/24 lisinopril 2.5 mg tablet 2.5 mg PO DAILY #30 tabs 04/13/24 metoprolol succinate 100 mg tablet,extended release 24 hr 100 mg PO BID #60 tabs 04/13/24 Hospital Course Operations None Procedures 2-D Echocardiogram Summary of Care Provided Minutes Spent on Discharge: 32 Hospital Course: This 78-year-old white male presented to the emergency room at [facility] with chief complaint of shortness of breath, he denied a productive cough, patient did complain of slight lower extremity edema. Patient's blood pressure was noted to be low at 100/69, he was tachycardic in A-fib with RVR patient was given an aerosol treatment and an oral metoprolol BNP came back elevated, chest x-ray came back showing possible pneumonia or pulmonary edema. Patient was admitted to PCU for hypoxia and decompensated heart failure with preserved ejection fraction as well as atrial fibrillation with RVR, he was given IV Lasix, echocardiogram was repeated that showed a decreased ejection fraction, he was seen in consultation by cardiology and placed on a beta-kaylene and amiodarone to control his rate. Echocardiogram showed an ejection fraction of 25% which was felt could be a result of the patient's uncontrolled A-fib. After several days, patient's heart rhythm was controlled with a mixture of metoprolol, amiodarone, and digoxin. On 04/13/2024, patient was seen and examined: On examination he appeared in good health and spirits. Vital signs as documented. Skin warm and dry and without overt rashes. Neck without JVD, neck was supple, trachea midline, thyroid was normal. Lungs clear bilaterally, normal air movement was noted. Heart exam notable for irregular rhythm, normal sounds and absence of murmurs, rubs or gallops. Abdomen unremarkable and without evidence of organomegaly, masses, or abdominal aortic enlargement. Bowel sounds are present, abdomen is not distended. Extremities nonedematous, no cyanosis was noted, no clubbing was noted. Neuro: Cranial nerves II through XII are grossly intact, no focal motor deficits were noted, sensation to light touch and pinprick intact, motor exam 5/5 throughout. Psych: Patient is alert and oriented x3, he does not appear anxious or depressed, he does not appear agitated. On 04/13/2024, patient was seen and examined and felt to be stable for discharge home Weight / BMI Weight Weight: 74.7 kg Body Mass Index (BMI) 24.3 ABG / Lab / Microbiology Data 04/12/24 05:34 04/12/24 05:34 Microbiology: Microbiology 04/08/24 04:00 Urine, Clean Catch Legionella Antigen - Final 04/08/24 04:00 Urine, Clean Catch Streptococcus pneumoniae Antigen (M - Final 04/08/24 23:45 Mucosa - Nasopharyngeal Respiratory Panel (PCR) - Final 04/08/24 20:10 Mucosa - Nose SARS-CoV-2, Influenza & RSV (PCR) - Final D/C Instructions Discharge Diet: No restrictions Weight Bearing Status: Full weight bearing DC O2, CPAP, BIPAP Needs RN Home O2 Qualification: Home O2 Qualification: Is the patient on home oxygen No 04/13/24 13:20 Home O2 Qualification: AT REST 1- Pulse Ox at rest 97 04/13/24 13:20 Home O2 Qualification: WITH AMBULATION 1- Pulse Ox with ambulation 92 04/13/24 13:20 1- Oxygen Flow Rate with 0 04/13/24 13:20 ambulation 2- Pulse Ox with ambulation 90 04/10/24 07:59 2- Oxygen Flow Rate with 2 04/10/24 07:59 ambulation Home O2 Discharge instructions: No Meaningful Use Info Meaningful Use Meaningful Use Diagnoses (Choose all that apply): CHF CHF JANNA/ARB ordered at discharge?: Yes Documented LVEF (%): 25 Ischemic Stroke Statin Dosing Therapy Reference: STATIN DOSE THERAPY REFERENCE: * Patients > 75 years receive moderate or high dose statin therapy. * Patients 75 years or YOUNGER should receive HIGH intensity statin dose unless contraindicated. You will be required to document reason for non-treatment if statin daily dose does not meet guidelines. HIGH DOSE STATIN THERAPY DAILY Atorvastatin > than or = to 40 mg Rosuvastatin > than or = to 20 mg Amlodipine + Atorvastatin > than or = to 2.5/40 mg Ezetimibe + Simvastatin 10/80 mg Simvastatin 80mg Discharge Plan Admission Admit Date/Time: 04/08/24 22:17 Primary Reason for Your Visit: Atrial fibrillation, congestive heart failure Attending Provider: Patel Westbrook Primary Care Provider: Humphrey Maher Consulting Providers: Colin Vance; Luba Villatoro; Blade Wright Discharge Orders/Prescriptions Prescriptions: New metoprolol succinate 100 mg Tablet Extended Release 24 Hr 100 mg PO BID Qty: 60 0RF lisinopril 2.5 mg Tablet 2.5 mg PO DAILY Qty: 30 0RF digoxin [Lanoxin] 125 mcg (0.125 mg) tablet 125 mcg PO DAILY Qty: 30 0RF Continued albuterol sulfate [ProAir HFA] 90 mcg/actuation HFA aerosol inhaler 2 puff INHALATION Q6H PRN (Reason: Wheezing) cholecalciferol (vitamin D3) 1,000 unit capsule 3,000 unit PO DAILY Spiriva Respimat 2.5 mcg/actuation mist 2 inh inhalation QAM Eliquis 5 mg tablet 5 mg PO BID levothyroxine 75 mcg capsule 75 mcg PO DAILY nitroglycerin 0.4 mg tablet, sublingual 0.4 mg sublingual Q5-15M Qty: 20 4RF (DME) Handicap placard See Rx Instructions .Route .MEDSUPPLY Qty: 1 0RF Rx Instructions: Duration 5 years, Diagnosis CAD, Prostate CA ferrous sulfate 325 mg (65 mg iron) tablet 325 mg PO BID Qty: 90 3RF atorvastatin 40 mg tablet 40 mg PO QHS Qty: 90 3RF pantoprazole 40 mg tablet,delayed release (DR/EC) 40 mg PO QDAY clopidogrel [Plavix] 75 mg tablet 75 mg PO QDAY Patient Comments: SEE NOTES furosemide 20 mg tablet 20 mg PO DAILY Qty: 90 3RF potassium chloride 10 mEq tablet extended release 10 meq PO DAILY Qty: 90 3RF allopurinol 300 mg tablet 300 mg PO QDAY Qty: 90 1RF nifedipine 90 mg tablet extended release 24hr 90 mg PO QDAY Qty: 90 3RF Discontinued metoprolol tartrate 25 mg tablet 25 mg PO BID Qty: 180 3RF lisinopril 20 mg tablet 20 mg PO BID Qty: 180 3RF Referrals / Follow Up: Brendan Lloyd MD [Med Staff - Active Staff] - See Referral Note (The office will contact you regarding an appointment in April) Humphrey Maher DO [Primary Care Provider] - 05/03/24 10:00 am Disposition Disposition (needs filled in before D/C Order can be placed): Home Health Service Charges/Coding Visit Charges Inpatient E&M: 70210 Disch Hosp >30min
--- NOTE | 2024-04-13 14:23 | CASEMGMT ---
Patient has order for discharge. GORDY LEE called [facility] to update of discharge, planned start of care is for . Patient does not qualify for home oxygen. GORDY LEE in to discuss needs at discharge. GORDY LEE updated patient regarding [facility] start of care. Patient denies needs or help at discharge. Patient had no further questions or concerns.
== END 2024-04-13 18:24 | disposition home health service (06) | DRG 291 ==
LOC: ED 21:57 → PCU 22:35
PROVIDERS: Anesthesiology; Admitting Provider Family Medicine; Emergency Provider Emergency Medicine; PCP Family Medicine; Visit Provider Internal Medicine
DX: I13.0 Hypertensive heart and chronic kidney disease with heart failure and stage 1 through stage 4 chronic kidney disease, or unspecified chronic kidney disease (principal); I50.23 Acute on chronic systolic (congestive) heart failure; I48.19 Other persistent atrial fibrillation; D50.9 Iron deficiency anemia, unspecified; Z79.01 Long term (current) use of anticoagulants; J44.9 Chronic obstructive pulmonary disease, unspecified; E03.9 Hypothyroidism, unspecified; I77.9 Disorder of arteries and arterioles, unspecified; I48.0 Paroxysmal atrial fibrillation; K21.9 Gastro-esophageal reflux disease without esophagitis; N18.2 Chronic kidney disease, stage 2 (mild); G47.33 Obstructive sleep apnea (adult) (pediatric); I25.10 Atherosclerotic heart disease of native coronary artery without angina pectoris; E78.00 Pure hypercholesterolemia, unspecified; M10.9 Gout, unspecified; I25.2 Old myocardial infarction; R09.02 Hypoxemia; Z79.890 Hormone replacement therapy; Z87.891 Personal history of nicotine dependence; Z79.02 Long term (current) use of antithrombotics/antiplatelets; Z95.5 Presence of coronary angioplasty implant and graft; Z85.46 Personal history of malignant neoplasm of prostate; Z99.89 Dependence on other enabling machines and devices; Z79.899 Other long term (current) drug therapy
CPT/HCPCS: 36415; 71045; 80048; 80053; 80061; 83735; 83880; 84145; 84443; 84484; 85025; 87449; 87631; 87633; 93005; 93306; 94640; 94668; 94762; 97116; 97163; 97166; 97530; 97535; 97803; 99285; A4216; J1940

== ENCOUNTER 2024-04-19 09:28 | Emergency (ER) | payer MEDICARE, OTHER, SELFPAY ==
[2022-07-02 06:43] VITALS: BMI 26.4
[2024-04-19 09:29] VITALS: BP 115/79; PULSE 106; RESP 18; TEMP 36.4; O2SAT 97; BMI 24.2
--- NOTE | 2024-04-19 09:44 | EX.ED.DYSGE1 ---
HPI History of Present Illness Chief Complaint: Wound Check Detail of Chief Complaint: Wound check Informant: patient Narrative Narrative: Patient presents to the emergency department for concern about a bleeding wound to his abdomen. Patient states that he had an injection at his urologist's office of [place] yesterday and the injection site will not stop bleeding. He is on Eliquis and Plavix. He said the injection before never had an issue. He changed the bandage about 3 times. Called his primary care physician and was told to come to the ER for evaluation [facility] Medical History Thyroid disease High cholesterol Back pain Former smoker CPAP (continuous positive airway pressure) dependence Sleep apnea Emphysema, unspecified History of pain when walking History of edema History of echocardiogram History of atrial fibrillation Primary malignant neoplasm of prostate with high risk of recurrence due to [place] score of 8 to 10 and PSA greater than 20 Nocturia Spermatocele of epididymis Prostate cancer Dyslipidemia 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 Bilateral lower extremity edema Carotid artery disease Peripheral arterial disease Paroxysmal atrial fibrillation Claudication of both lower extremities Aortic valve stenosis Bradycardia long term current use of amiodarone Phimosis Hypothyroidism Encounter for circumcision CAD (coronary artery disease) Wears hearing aid Wears glasses Wears dentures Cancer Ambulates with cane Gout Easy bruising Excessive bleeding History of hiatal hernia Gastric reflux Former smoker Shortness of breath on exertion Leg cramps History of heart attack History of stress test Cardiology follow-up encounter History of irregular heartbeat Chest pain Abnormal stress test Abnormal computed tomography of cecum and terminal ileum Testicular discomfort Right inguinal hernia Peripheral neuritis of left foot Carotid stenosis, bilateral Essential hypertension Arthritis Old myocardial infarction Atherosclerotic heart disease of [place] coronary artery without angina pectoris COPD (chronic obstructive pulmonary disease) Hypertension Hyperlipidemia Home Medications ?Medication ?Instructions ?Recorded ?Last Taken ?Type clopidogrel 75 mg tablet (Plavix) 75 mg PO QDAY CLOTTING 05/22/17 11/08/23 History Held on 04/19/24. Instructions: bleeding from injection site pantoprazole 40 mg tablet,delayed 40 mg PO QDAY GERD 05/22/17 11/08/23 History release albuterol sulfate 90 mcg/actuation 2 puff inhalation Q6H PRN Wheezing 07/20/17 11/09/21 History aerosol inhaler (ProAir HFA) cholecalciferol (vitamin D3) 25 3,000 unit PO DAILY VITAMIN 04/01/18 11/08/23 History mcg (1,000 unit) capsule tiotropium bromide 2.5 2 inh inhalation QAM COPD 01/23/21 11/09/23 History mcg/actuation mist for inhalation (Spiriva Respimat) apixaban 5 mg tablet (Eliquis) 5 mg PO BID BLOOD THINNER 04/07/23 11/08/23 History levothyroxine 75 mcg capsule 75 mcg PO DAILY HYPOTHYROID 04/14/23 11/09/23 08:30 History furosemide 20 mg tablet 20 mg PO DAILY EDEMA #90 TABLETS 08/11/23 11/08/23 Rx potassium chloride 10 mEq 10 meq PO DAILY LOW POTASSIUM #90 08/11/23 11/08/23 Rx tablet,extended release TABLETS Handicap placard #1 ea 08/12/23 Unknown Rx nitroglycerin 0.4 mg sublingual 0.4 mg sublingual Q5-15M CHEST 08/12/23 Unknown Rx tablet PAIN #20 tabs atorvastatin 40 mg tablet 40 mg PO QHS HYPERLIPIDEMIA #90 09/29/23 11/08/23 Rx tabs ferrous sulfate 325 mg (65 mg 325 mg PO BID #90 tabs 02/02/24 Unknown Rx iron) tablet allopurinol 300 mg tablet 300 mg PO QDAY GOUT #90 tabs 02/23/24 Unknown Rx nifedipine 90 mg tablet,extended 90 mg PO QDAY HYPERTENSION #90 tabs 03/17/24 Unknown Rx release 24 hr digoxin 125 mcg (0.125 mg) tablet 125 mcg PO DAILY #30 tabs 04/13/24 Unknown Rx (Lanoxin) lisinopril 2.5 mg tablet 2.5 mg PO DAILY #30 tabs 04/13/24 Unknown Rx metoprolol succinate 100 mg 100 mg PO BID #60 tabs 04/13/24 Unknown Rx tablet,extended release 24 hr Allergy/AdvReac Type Severity Reaction Status Date / Time bee venom protein (honey Allergy Severe Anaphylaxis Verified 04/19/24 09:29 bee) (bee stings) venom-wasp protein Allergy Severe Anaphylaxis Verified 04/19/24 09:29 Family History Father CVA (cerebral vascular accident) Mother CAD (coronary artery disease) Hx of CABG CHF (congestive heart failure) S/P MVR (mitral valve replacement) Brother COPD (chronic obstructive pulmonary disease) Diabetes Cancer lung Grandfather Colon cancer Surgical History History of skin graft History of coronary artery stent placement History of left-sided carotid endarterectomy H/O hernia repair Hx of circumcision Hx of prostate biopsy (~03/23/23) History of left-sided carotid endarterectomy Status post carotid endarterectomy History of cardiac catheterization H/O local excision of skin lesion History of brain surgery History of left knee surgery History of tonsillectomy Postsurgical percutaneous transluminal coronary angioplasty (PTCA) status (03/21/22) Presence of stent in coronary artery (~01/22/11) Social History (Updated 04/08/24 @ 23:[address] Luba Villatoro MD) household members: spouse Smoking Status: Former smoker how long ago did patient quit smokin alcohol intake: never substance use type: does not use caffeine: Yes (3 servings per day) what type of physical activity do you participate in: walking frequency: daily ROS ROS ED Review of Systems ROS Unobtainable: other Constitutional Constitutional ED: Reports lethargy; Denies chills, fever(s), sweats or weight loss Eyes Eyes: Denies blurry vision, change in vision or diplopia ENT ENT ED: Denies rhinorrhea or sore throat Cardiovascular Cardiovascular: Denies chest pain, orthopnea or racing heartbeat Respiratory/Chest Respiratory/Chest: Denies cough, dyspnea, dyspnea on exertion, orthopnea or sputum Gastrointestinal Gastrointestinal: Denies abdominal pain, diarrhea, nausea or vomiting Genitourinary Genitourinary ED: Denies dysuria, hematuria or urinary frequency Musculoskeletal Musculoskeletal: Denies arthralgias, back pain, myalgias or neck pain Integumentary Reports other Details: Wound check ; Denies abscess, Abrasions or rash Neurologic Neurologic: Denies headache(s) or weakness Psychiatric Psychiatric: Denies anxiety, depression or suicidal thoughts Endocrine Endocrinology: Denies polydipsia, polyphagia or polyuria Hematologic/Lymphatic Hematologic/Lymphatic: Denies easy bleeding, easy bruising or lymphadenopathy Allergic/Immunologic Allergic/Immunologic ED: Denies mouth swelling, tongue swelling or urticaria EXAM Physical Exam Const Vital Signs: 02/04/25 09:29 Temperature 97.5 F L Temperature Source Oral Pulse Rate 106 H Respiratory Rate 18 Blood Pressure 115/79 Blood Pressure Mean 91 Pulse Ox 97 Oxygen Delivery Method Room Air Positive well nourished and well developed General Appearance ED: well developed and NAD HEENT Reports TM's clear and moist mucous membranes normocephalic and atraumatic; Negative for trauma or tenderness Tympanic Membrane ED: Yes TM's clear Eyes PERRL and EOMs intact bilaterally General Eye ED: Negative for pale conjunctiva or scleral icterus Neck no lymphadenopathy, supple and no JVD General: Negative for tenderness Chest Wall inspection of chest normal and palpation of chest normal Chest: Negative for tenderness Resp normal respiratory effort and clear to auscultation bilaterally Effort and Inspection: Negative for respiratory distress or pain with movement Auscultation: Negative for rhonchi, wheezes or diminished lung sounds Cardio regular rate, regular rhythm, S1 normal heart sound, S2 normal heart sound and no murmurs Peripheral Pulses: pulses 2+ throughout GI normal to inspection, nondistended, normoactive bowel sounds, soft to palpation, non-tender, non-distended and no masses GI Narrative: Small punctate wound to lower abdomen inferior to umbilicus on the left side that has small amount of venous oozing. No hematoma noted. No significant other findings. Back/Spine no CVA tenderness and no thoracic nor lumbar tenderness Extremity normal to inspection General Extremety ED: Negative for edema General Extremity: Negative for edema Neuro oriented x3, CN's II-XII intact bilaterally, no sensory deficits noted and gait normal Sensorium / Orientation: awake, alert, oriented to person, oriented to place and oriented to time Motor Exam: strength 5/5 throughout and strength abnormal Psych mental status grossly normal Skin no rashes or lesions noted and no wounds MDM MDM MDM Narrative Medical decision making narrative: Patient presents with a wound that is bleeding from injection to the lower abdomen that was performed yesterday by urologist. Patient on Eliquis. Patient states that he was told by cardiology to discontinue his Eliquis for a few days. The area of the skin was cleansed with alcohol and using 1% lidocaine with epinephrine total 2 cc were infiltrated into the subcutaneous tissue around the injection site. Good hemostasis was obtained. Observe the patient for 15 minutes and there was no further bleeding. A clean pressure dressing will be applied. He is advised to follow-up with his urologist or primary care physician as needed. He is to return if persistent heavy bleeding or condition should worsen anyway. Discharge Plan Triage Chief Complaint: Wound Check ED Provider: Teofilo Gallagher Dx/Rx/DC Orders Clinical Impression: Visit for wound check Instructions: ED Post Op Wound Check, Bleeding Prescriptions: No Action albuterol sulfate [ProAir HFA] 90 mcg/actuation HFA aerosol inhaler 2 puff INHALATION Q6H PRN (Reason: Wheezing) cholecalciferol (vitamin D3) 1,000 unit capsule 3,000 unit PO DAILY Spiriva Respimat 2.5 mcg/actuation mist 2 inh inhalation QAM Eliquis 5 mg tablet 5 mg PO BID levothyroxine 75 mcg capsule 75 mcg PO DAILY nitroglycerin 0.4 mg tablet, sublingual 0.4 mg sublingual Q5-15M Qty: 20 4RF (DME) Handicap placard See Rx Instructions .Route .MEDSUPPLY Qty: 1 0RF Rx Instructions: Duration 5 years, Diagnosis CAD, Prostate CA ferrous sulfate 325 mg (65 mg iron) tablet 325 mg PO BID Qty: 90 3RF atorvastatin 40 mg tablet 40 mg PO QHS Qty: 90 3RF metoprolol succinate 100 mg Tablet Extended Release 24 Hr 100 mg PO BID Qty: 60 0RF lisinopril 2.5 mg Tablet 2.5 mg PO DAILY Qty: 30 0RF digoxin [Lanoxin] 125 mcg (0.125 mg) tablet 125 mcg PO DAILY Qty: 30 0RF pantoprazole 40 mg tablet,delayed release (DR/EC) 40 mg PO QDAY clopidogrel [Plavix] 75 mg tablet 75 mg PO QDAY Patient Comments: SEE DR. GALLEGO furosemide 20 mg tablet 20 mg PO DAILY Qty: 90 3RF potassium chloride 10 mEq tablet extended release 10 meq PO DAILY Qty: 90 3RF allopurinol 300 mg tablet 300 mg PO QDAY Qty: 90 1RF nifedipine 90 mg tablet extended release 24hr 90 mg PO QDAY Qty: 90 3RF Primary Care Provider: Humphrey Maher Referrals: Humphrey Maher, [Primary Care Provider] - Activity Restrictions/Additional Instructions: See Dr. Pro gomez or primary care physician as needed for repeat evaluation in 3 to 5 days. Return if persistent or heavy bleeding. Print Language: [place] Disposition Disposition: Home, Self Care
[2024-04-19] MEDS: Lidocaine 1% /Epi 1:100 (20ml) 20 ML Vial INFILT (10:09)
== END 2024-04-19 10:17 | disposition home or self-care (01) ==
PROVIDERS: Emergency Provider Emergency Medicine; PCP Family Medicine; Visit Provider Emergency Medicine
DX: Z48.00 Encounter for change or removal of nonsurgical wound dressing (principal); I10 Essential (primary) hypertension; Z79.899 Other long term (current) drug therapy; Z87.891 Personal history of nicotine dependence
CPT/HCPCS: 99282

== ENCOUNTER → 2024-04-25 | Outpatient (CLI) | payer MEDICARE, OTHER, SELFPAY ==
[2022-07-02 06:43] VITALS: BMI 26.4
[2024-04-25 16:00] LABS: AST(SGOT) 19 U/L (15-37); Alanine Aminotransfer ALT/SGPT 27 U/L (16-61); Albumin, Serum 3.3 g/dL (3.2-5.0); Alkaline Phosphatase 101 U/L (45-117); Bilirubin, Direct 0.14 mg/dL (0.00-0.30); Cholesterol 87 mg/dL (200); Globulin 3.7 g/dL (2.2-4.2); High Density Lipoprotein 30 mg/dL; Triglycerides 151 mg/dL; Very Low Density Lipoprotein 30 mg/dL (5-40)
[2024-04-25 16:57] LABS: PSA,Total- Diagnostic 0.11 ng/mL (0.0-4.0)
== END | disposition home or self-care (01) ==
LOC: BIMLAB 13:58
PROVIDERS: Internal Medicine Cardiovascular Disease; PCP Family Medicine; Referring Provider Urology; Visit Provider Urology
DX: C61 Malignant neoplasm of prostate (principal); R97.20 Elevated prostate specific antigen [PSA]; E78.00 Pure hypercholesterolemia, unspecified
CPT/HCPCS: 36415; 80061; 80076; 84153

== ENCOUNTER → 2024-05-19 | Outpatient (CLI) | payer MEDICARE, OTHER, SELFPAY ==
[2022-07-02 06:43] VITALS: BMI 26.4
--- NOTE | 2024-05-19 09:51 | PCM.CR.HP2 ---
CR - History & Physical General Arrival date:: 05/19/24 Arrival time:: 09:51 Date of Referral:: 04/18/24 Date of CR Evaluation:: 05/19/24 Referring Physician: Dr. Lloyd Primary Diagnosis: HF with EF<35% or less History of Present Cardiac Event Onset Date Heart Failure EF <35%:: Yes Medications Ambulatory Orders ?Medication ?Instructions ?Recorded clopidogrel 75 mg tablet (Plavix) 75 mg PO QDAY CLOTTING 05/22/17 Held on 04/19/24. Instructions: bleeding from injection site pantoprazole 40 mg tablet,delayed 40 mg PO QDAY GERD 05/22/17 release albuterol sulfate 90 mcg/actuation 2 puff inhalation Q6H PRN Wheezing 07/20/17 aerosol inhaler (ProAir HFA) cholecalciferol (vitamin D3) 25 3,000 unit PO DAILY VITAMIN 04/01/18 mcg (1,000 unit) capsule tiotropium bromide 2.5 2 inh inhalation QAM COPD 01/23/21 mcg/actuation mist for inhalation (Spiriva Respimat) apixaban 5 mg tablet (Eliquis) 5 mg PO BID BLOOD THINNER 04/07/23 levothyroxine 75 mcg capsule 75 mcg PO DAILY HYPOTHYROID 04/14/23 furosemide 20 mg tablet 20 mg PO DAILY EDEMA #90 TABLETS 08/11/23 potassium chloride 10 mEq 10 meq PO DAILY LOW POTASSIUM #90 08/11/23 tablet,extended release TABLETS Handicap placard #1 ea 08/12/23 nitroglycerin 0.4 mg sublingual 0.4 mg sublingual Q5-15M CHEST 08/12/23 tablet PAIN #20 tabs atorvastatin 40 mg tablet 40 mg PO QHS HYPERLIPIDEMIA #90 09/29/23 tabs ferrous sulfate 325 mg (65 mg 325 mg PO BID #90 tabs 02/02/24 iron) tablet allopurinol 300 mg tablet 300 mg PO QDAY GOUT #90 tabs 02/23/24 nifedipine 90 mg tablet,extended 90 mg PO QDAY HYPERTENSION #90 tabs 03/17/24 release 24 hr digoxin 125 mcg (0.125 mg) tablet 125 mcg PO DAILY #90 tabs 05/03/24 (Lanoxin) lisinopril 2.5 mg tablet 2.5 mg PO DAILY #90 tabs 05/03/24 metoprolol succinate 100 mg 100 mg PO BID #180 tabs 05/03/24 tablet,extended release 24 hr Allergies Allergies bee venom protein (honey bee) (bee stings) Allergy (Severe, Verified 05/03/24 09:37) Anaphylaxis venom-wasp protein Allergy (Severe, Verified 05/03/24 09:37) Anaphylaxis Sleep Disorder Evaluation Hx of Sleep Apnea: Yes Do you snore loudly (louder than talking or can be heard through closed doors)?: No Do you often feel tired/ fatigued/ sleepy during daytime?: No Has anyone observed you stop breathing during sleep?: No History of Hypertension (for STOP score): Yes STOP Results: Negative Advanced Directives Advanced Directives Power of Data Warehouse Consultant: Yes Living Will: Yes Advance Directives Information Provided: Yes Advance Directives on File: No DNR Order?:: No Past Medical History Covid-19 Screening Physicial Symptoms Other Clinical Concerns Exposure Risk Pertinent Comorbidities 65 years or older:: Yes Has a chronic lung disease or moderate to severe asthma:: Yes Has a serious heart condition:: Yes Past Medical Illness Medical History Acute exacerbation of chronic heart failure Atrial fibrillation with RVR Thyroid disease High cholesterol Back pain Former smoker CPAP (continuous positive airway pressure) dependence Sleep apnea Emphysema, unspecified History of pain when walking History of edema History of echocardiogram History of atrial fibrillation Primary malignant neoplasm of prostate with high risk of recurrence due to [place] score of 8 to 10 and PSA greater than 20 Nocturia Spermatocele of epididymis Prostate cancer Dyslipidemia 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 Bilateral lower extremity edema Carotid artery disease Peripheral arterial disease Paroxysmal atrial fibrillation Claudication of both lower extremities Aortic valve stenosis Bradycardia [facility] current use of amiodarone Phimosis Hypothyroidism Encounter for circumcision CAD (coronary artery disease) Wears hearing aid Wears glasses Wears dentures Cancer Ambulates with cane Gout Easy bruising Excessive bleeding History of hiatal hernia Gastric reflux Former smoker Shortness of breath on exertion Leg cramps History of heart attack History of stress test Cardiology follow-up encounter History of irregular heartbeat Chest pain Abnormal stress test Abnormal computed tomography of cecum and terminal ileum Testicular discomfort Right inguinal hernia Peripheral neuritis of left foot Carotid stenosis, bilateral Essential hypertension Arthritis Old myocardial infarction Atherosclerotic heart disease of [place] coronary artery without angina pectoris COPD (chronic obstructive pulmonary disease) Hypertension Hyperlipidemia Past Surgical History Surgical History History of skin graft History of coronary artery stent placement History of left-sided carotid endarterectomy H/O hernia repair Hx of circumcision Hx of prostate biopsy (~03/23/23) History of left-sided carotid endarterectomy Status post carotid endarterectomy History of cardiac catheterization H/O local excision of skin lesion History of brain surgery History of left knee surgery History of tonsillectomy Postsurgical percutaneous transluminal coronary angioplasty (PTCA) status (03/21/22) Presence of stent in coronary artery (~01/22/11) Family History Summary Family History Father CVA (cerebral vascular accident) Mother CAD (coronary artery disease) Hx of CABG CHF (congestive heart failure) S/P MVR (mitral valve replacement) Brother COPD (chronic obstructive pulmonary disease) Diabetes Cancer lung Grandfather Colon cancer Social History Smoking History Smoking Status: Former smoker Years Smokin (stopped 30 years ago) Packs Smoked per Day: 3.5 Alcohol Use Alcohol Usage: No Substance Abuse Hx Substance Use: No Occupation Occupation (List type of work in comments):: Retired Social Environment Status Marital Status: Current Living Arrangements Living Environment:: Spouse Children How many children do you have?: 4 Safety Do you feel safe in your surroundings?: Yes Assistance Do you need any assistance at home?: no Review of Systems Review of Systems Hints Review of Present Symptoms: Reports Shortness of Breath with Exertion, PVD, Dizziness/Lightheadedness, Fatigue, Heart Arrhythmia/Irregularities, Appetite - Normal, Appetite - Special Diet and Sleep - Normal; Denies Shortness of Breath at Rest, Operative Discomfort, Angina, Wound Healing or Sexual Changes Pain Is Patient Pain Free?: No Pain Location: other (arthritis and gout) Pain Level: 5/10 Risk Factor Assessment Chief Complaint Chief Complaint: HF with EF<35% or less Vital Signs Pulse Ox: 95 Blood Pressure: 110/50 Pulse Pulse Rate: 84 Pulse Rhythm: Irregular Hypertension How long have you been treated?: 15 years Blood Pressure Sitting - Left Arm: 110/50 Obesity Height: 5 ft 9 in Weight:: 161 lb Weight in Pounds: 161.0 lbs Body Mass Index (BMI): 23.8 Physical Inactivity Physical Inactivity: Reg Exercise 30 min/day Risk Stratification Risk Guidelines: Moderate Risk: Risk Factor for Smoking, Risk Factor for Diabetes, Risk Factor for Obesity, Risk Factor for Sedentary Lifestyle and Risk Factor for Depression and Highest Risk: Risk Factor for Dyslipidemia and Risk Factor for Hypertension For Smoking Smoking Risk Guidelines For Dyslipidemia Dyslipidemia Risk Guidelines For Diabetes Mellitus Diabetes Risk Guidelines For Obesity/Overweight Obesity/Overweight Risk Guidelines For Hypertension Hypertension Risk Guidelines For Sedentary Lifestyle Sedentary Lifestyle Risk Guidelines For Depression Depression Risk Guidelines Family History Family History Father CVA (cerebral vascular accident) Mother CAD (coronary artery disease) Hx of CABG CHF (congestive heart failure) S/P MVR (mitral valve replacement) Brother COPD (chronic obstructive pulmonary disease) Diabetes Cancer lung Grandfather Colon cancer Motivation Motivation to Participate On a scale of 1 to 10, how prepared are you to commit to attending program?: 9 What do you see as barriers to successfully being able to complete the program?: nothing What do you see as the benefits of succesfully completing the program? In other words, what do you hope to get out of participating in the program?: Stronger Are there issues you are dealing with that will interfere with completing the program?: no Do you have a spouse or signficant other, family or friends who will help support you to complete the program?: yes
--- NOTE | 2024-05-19 09:56 | CR.ITP_ITS ---
Diagnosis General Information Admitting Diagnosis: HF with EF<35% or less Personal Learning Style:: Audio/Visual Barriers to Learning: No Barriers Stage of change r/t lifestyle modifications:: Contemplation Gave educational material for:: Treating Heart Disease, How The Heart Works, What it means to have Heart Disease, How Coronary Artery Disease is Diagnosed, Heart Procedures, What Heart Medications Do, Risk Factors & Modifications, Living an Active Life, Nutrition, Emotions & Heart Disease, Stress Management & Relaxation and Sleep Disorders & Heart Disease Education/Goals Cardiac Rehabilitation Goals Personal Goals: Initial Assessment: Improve energy level, Improve muscle strength and endurance, Improve diet and eating habits (eat healthier), Control risk factors (learn risk factor modification) and Other goal: Scale for measuring improvement of personal goals Diagnosis & Disease Process Outcomes/Goals: Pt IDs own risk factors & lifestyle modifications by Session 10, Verbalizes symptoms of angina & response by session 3., Pt independently manages and Other Additional Outcomes/Goals: Plan/Interventions: Assist Pt to ID & engage in lifestyle modification to reduce CVD risk, Instruct on individual risk factors, Review symptoms of angina & emergency actions, Review secondary diagnosis & identify educational needs. and Other see comment 30 day Reassessments:: Not Met 30 day Reassessments:: Not Met 30 day Reassessments:: Not Met 30 day Reassessments:: Not Met Final Reassessments:: Not Met Safety Referral to Physical Therapy: No Referral to [facility] Case Management: No Fall Risk Assessed:: Yes Assistive Devices:: Cane Exercise - Initial Assessment Visit Date of Eval: 05/19/24 (initial eval ) Mets: Pre-: >3 METS for 30 minutes by discharge, >5 METS for 30 minutes by discharge, >7 METS for 30 minutes by discharge and Unable to meet goal due to: (see comment below) Physician Prescribed Exercise Modalities: Treadmill, Rower, Schwinn Airdyne AD-7, SciFit Stepper, SciFit Pro- II Ergometer and SciFit Lateral [employer] Manager Frequency: 3x/week for 12 weeks [36 sessions] Intensity: 60-80% of age predicted maximum heart rate reserve Duration: 30 - 45 minutes Current METSs:: 3 Target Heart Rate:: 86-108 Resting Blood Pressure: 110/50 EKG Type: Afib RVR Outcomes & Goals Goals:: Verbalizes understanding of THR, RPE & goal METS by session 6, Documents in home exercise log/reports 30 min aerobic 5 day/wk by DC, Demonstrates accurate pulse taking by DC and Other additional outcome/goals: see below Intervention & Plan Exercise Program Goals: Instruct on personal THR & RPE, Instruct on MET level & personal MET goal, Show patient to take own pulse /validate performance until accurate, Instruct on home exercise and Other additional plan/int Physical Activity Home Exercise Physical Activity - Home Exercise: Safe Exercise, Warm-up, Self-monitoring, Cool-Down, Home Exercise > 30 min Daily and Sitting Time <3 hours/daily Outcomes & Goals Outcomes/Goals: Demonstrates correct Warm-up/exercise Cool-Down (S3) if = 2.5 METs, Verbalizes symptoms of exercise intolerance by Session 3 (S3), Demonstrate safe equipment use (S3) & follows exercise prescrition (6) and Other: See below Intervention & Plan Plan/Intervention: Instruct warm-up & cool-down if exercising at > 2 METs, Instruct on symptoms of exercise intolerance & actions to take, Instruct & monitor on saf, Assess intial functional capacity & safety risk and Other See below Nutrition - Initial Assessment Program Goals Nutrition Program Goals Patient has diagnosis of Hyperlipidemia (ICD E78)?: Yes Visit Date of Eval: 05/19/24 (initial eval ) Cholesterol/Lipids (Other Core Measures) Determine presence & major risk factors that modify LDL goal: Cigarette smoking, Hypertension or hypertensive medication, Low HDL cholesterol <40 mg/dL*, Family history of premature CHD in Male < 55 years: female <65 yearsFa and Age men > 45 years; women >/= 55 years Outcomes/Goals: Pt IDs own risk factors & lifestyle modifications by Session 10, Verbalizes symptoms of angina & response by session 3., Pt independently manages and Other Additional Outcomes/Goals: Intervention/Plan: Advocate for lipid panel cholesterol medication if applicable, Instruct on personal lipid levels & lipid goals/NCEP guidelines, Instruct on cholesterol and Other additional plan/int Diabetes (Other Core Measures) Diabetes Type: Not Applicable Weight Mgt (Other Care) Height: 5 ft 9 in Weight:: 161 lb BMI: 23.8 Diagnosis Overweight/Obesity BMI> 30% ICD-10 E66: No Diagnosis High BMI/Morbid Obesity BMI> 35% ICD-10 Z68: No Outcomes/Goals: Pt sets, maintains & shows weight loss goal & trend during rehab and Other additional outcomes/goals Intervention/Plan: Instruct on ideal BMI & set weight loss goal w/patient, Assist pt to ID & incorporate diet changes for weight loss by S9, Refer to Structured Weight Loss program as appropriate, Encourage goal of using 250- 300dcal per session for weight loss and Other additional plan/interventions Healthy Eating Habits Will attend diet classes:: Yes Outcomes/Goals:: Consume diet rich in vegs,fruits,whole grain/high fiber,fish,lean meat, Limit sat/trans fats,cholesterol & added salts & sugars and Other additional outcome/goals: Intervention/Plan:: Assess current eating habits and Other Additional plan/interventions Education Gave educational materials for:: Signs & symptoms of hypoglycemia, Signs & symptoms of hyperglycemia, Relate diabetes to coronary artery disease and Healthy eating Core - Initial Assessment Visit Date of Eval: 05/19/24 (initial eval ) Medication Compliance Preventative Medication(s):: Aspirin, JANNA inhibitor, Clopidogrel/P2Y12 inhibit, Statin/lipid and Eliquis H/O mental health issues: depression, anxiety, or addiction?: No Doesn?t believe in the benefits of treatment?: No Believes medications are unnecessary or harmful?: No Has a concern about medication side effects?: No Expresses concern over the cost of medications?: No Outcomes/Goals: Verbalizes medications,desired effect & common side effects @ DC, Pt self-reports following medication regimen, Keeps card in wallet w/medications listed by DC and Other additional outcome/goals: Interventions/plans: Instruct on medication effects & side effects, Review medication list w/patient every two weeks, Instruct importance of taking meds as ordered & assist problem solving and Other additional Tobacco Use Tobacco Use: Non-smoker How long ago did you quit using tobacco products?: Greater than or equal to 6 months ago Years Smokin (Pt stopped smoking 30 years ago) Do you use smokeless tobacco?: No Outcomes/Goals: Smoking cessation achieved or maintained by discharge, Identify aids/strategies for achieving smoking cessation by session 6 and Other additional outcome/goals Interventions/plan: Instruct on effects of smoking & provide smoking cessation resource, Assist pt to set quit date & provide encouragement, Assist pt to develop strategies to achieve/maintain quit date, Assist pt w/nicotine replacement & medication for cessation success and Other additional plan/interventions Hypertension Hypertension Diagnosis:: Hypertension ICD-10 I10 Resting Blood Pressure:: 110/50 [place] [employer] Hypertension Guidelines Outcomes/Goals: Able to verbalize/achieve optimal blood pressure <130/80, Incorporates diet changes & exercise for blood pressure control by DC and Other additional outcomes/goals Interventions/plan: Instruct on optimal blood pressure, hypertension & medications, Instruct on effects of sodium, alcohol, stress, exercise &hypertension and Other additional plan/interventions Tobacco Cessation Referral Smoking Cessation Referral:: No Individual Education/Counseling:: No Education Schedule Given:: Yes Psychosocial - Initial Assess VIsit Date of Eval: 05/19/24 (initial eval ) History of previous Mental disease:: No Target Goals Target Goals Psychosocial Test Tool Used:: Cigital QOL Cardiac and PHQ-9 Questionnaire phq-9 Severity Referral to Behavioral Health PS - Interventions: Yes: Attend Stress Management Classes Outcomes/Goals: See list Psychosocial Outcomes/Goals:: ID's personal stressors & 2 strategies to manage stress by discharge and Other Additional outcome/goals: Intervention/Plan: See List Interventions/Plan:: Assess stressors,coping strategies & signs of derpression on admission, Instruct/assist pt to develop coping & personal stress Mgt strategies, Refer to Behavioral Health if appropriate, Refer to Physician if appropriate, Instruct patient to recognize signs & symptoms of depression, Instruct patient to recog and Other additional plan/intervention Comments:: Pt denies any psychosocial issues at this time. Patient Health Questionnaire PHQ-9 Screening Initial Assessment: 1. Little interest or pleasure in doing things: Not at all 2. Feeling down, depressed, or hopeless: Not at all 3. Trouble falling or staying asleep, or sleeping too much: Not at all 4. Feeling tired or having little energy: Several days 5. Poor appetite or overeating: Not at all 6. Feeling bad about yourself -- or that you are a failure or have let yourself or your family down: Not at all 7. Trouble concentrating on things, such as reading the newspaper or watching television: Not at all 8. Moving or speaking so slowly that other people could have noticed. Or the opposite - being so fidgety or restless that you have been moving around a lot more than usual: Not at all 9. Thoughts that you would be better off , or of hurting yourself in some way: Not at all How difficult have these problems made it for you to do your work, take care of things at home, or get along with other people?: Not difficult at all Total Score: 1 JACQUELINE-Q SV Test Statements CAD is a disease of the arteries in the heart: False Examples of risk factors for heart disease: True Angina is chest pain or discomfort: True The benefits of resistance training include: True Eating more meat and dairy products: False Anti-platelet medications such as aspirin are important: True The only effective way to manage stress: False An exercise warm-up slowly increases heart rate: True Prepared, processed foods usually have high sodium: True Depression is common after a heart attack: True The statin medications lower cholesterol: True To control blood pressure, lower the amount of sodium: True If someone gets chest discomfort during walking: False Transfats are partially hydrogenated vegetable oils: I Don't Know Sleep apnea that is not treated increases the risk: True To control cholesterol, one should become a vegetarian: False Someone knows if he/she is exercising at the right level: True Diabetes cannot be prevented with exercise & health eating: False Stress is a large risk for heart attack: True A diet that can help lower blood pressure is rich in: True Total Score Total Correct Responses: 18 Self-Efficacy 6-Item Scale Initial Assessment: We would like to know how confident you are in doing certain activities. Please select your confidence level for: Fatigue Select Number: 9 Physical Discomfort or Pain Select Number: 9 Emotional Distress Select Number: 9 Other Symptoms or Health Problems Select Number: 9 Different Tasks and Activities Select Number: 9 Medication Select Number: 8 Total Score:: 8 Nutrition Survey Nutrition Survey Instructions Scoring Instructions Nutrition Survey Initial: Have you lost >10 lbs over the past 2 months without trying?: Yes Are you following a special diet at home for diabetes, low fat, or low salt?: Yes Are you interested in meeting with a dietitian for help understanding your diet?: No Do you eat less than 3 meals a day?: No Do you eat fatty meats (cunningham, sausage, ribs, etc), fried foods, desserts, large amounts of salad dressings, margarine, butter, or cheese most days?: Yes Do you have food allergies? [Enter types in comment field]: No Do you eat in restaurants more than 3 times a week?: No Do you season food with salt, seasoning salt, or garlic salt?: Yes Do you used canned, boxed, frozen meals, or soups, seasoning packets?: No Total Score:: 4 Exercise - 30-day Assessment Physician Prescribed Exercise Modalities: Treadmill, Rower, Schwinn Airdyne AD-7, SciFit Stepper, SciFit Pro- II Ergometer and SciFit Lateral [employer] Manager Exercise - 60-day Assessment Physician Prescribed Exercise Modalities: Treadmill, Rower, Schwinn Airdyne AD-7, SciFit Stepper, SciFit Pro- II Ergometer and SciFit Lateral [employer] Manager Exercise - 90-day Assessment Physician Prescribed Exercise Modalities: Treadmill, Rower, Schwinn Airdyne AD-7, SciFit Stepper, SciFit Pro- II Ergometer and SciFit Lateral [employer] Manager Exercise - Final/Discharge Physician Prescribed Exercise Modalities: Treadmill, Rower, Schwinn Airdyne AD-7, SciFit Stepper, SciFit Pro- II Ergometer and SciFit Lateral [employer] Manager Frequency: 3x/week for 12 weeks [36 sessions] Intensity: 60-80% of age predicted maximum heart rate reserve Current METSs:: 3 Target Heart Rate:: 86-108 Nutrition - 30-Day Assessment Weight Mgt (Other Care) Height: 5 ft 9 in Weight:: 161 lb BMI: 23.8 Nutrition - 60-Day Assessment Weight Mgt (Other Care) Height: 5 ft 9 in Weight:: 161 lb BMI: 23.8 Core - 30-Day Assessment Tobacco Use Years Smokin (Pt stopped smoking 30 years ago) Core - Final Assessment Hypertension Resting Blood Pressure:: 110/50 [place] [employer] Hypertension Guidelines Core - 60-Day Assessment Hypertension Resting Blood Pressure:: 110/50 [place] [employer] Hypertension Guidelines Psychosocial - 30-Day Assess Target Goals Target Goals Referral to Behavioral Health PS - Interventions: Yes: Attend Stress Management Classes Psychosocial - 60-Day Assess Target Goals Target Goals Referral to Behavioral Health PS - Interventions: Yes: Attend Stress Management Classes Psychosocial - 90-Day Assess Target Goals Target Goals Referral to Behavioral Health PS - Interventions: Yes: Attend Stress Management Classes Psychosocial - Final Assessmen Target Goals Target Goals Referral to Behavioral Health PS - Interventions: Yes: Attend Stress Management Classes Nutrition - 90-Day Assessment Weight Mgt (Other Care) Height: 5 ft 9 in Weight:: 161 lb BMI: 23.8 Nutrition - Final Assessment Program Goals Patient has diagnosis of Hyperlipidemia (ICD E78)?: Yes Weight Mgt (Other Care) Height: 5 ft 9 in Weight:: 161 lb BMI: 23.8
[2024-05-19 10:08] VITALS: BP 110/50; PULSE 84; O2SAT 95
[2024-05-19 10:11] VITALS: BP 110/50; BMI 23.8
[2024-05-19 10:35] VITALS: BP 110/50; BMI 23.8
== END | disposition home or self-care (01) ==
LOC: CR 09:46
PROVIDERS: PCP Family Medicine; Referring Provider Internal Medicine Cardiovascular Disease; Visit Provider Internal Medicine Cardiovascular Disease
DX: I25.10 Atherosclerotic heart disease of native coronary artery without angina pectoris (principal); I50.9 Heart failure, unspecified; I48.0 Paroxysmal atrial fibrillation; I51.9 Heart disease, unspecified; R93.1 Abnormal findings on diagnostic imaging of heart and coronary circulation; Z98.61 Coronary angioplasty status; I65.23 Occlusion and stenosis of bilateral carotid arteries; E78.5 Hyperlipidemia, unspecified

== ENCOUNTER → 2024-05-26 | Outpatient (CLI) | payer MEDICARE, OTHER, SELFPAY ==
[2024-05-19 10:11] VITALS: BMI 23.8
[2024-05-26 12:38] LABS: Absolute Lymphocyte Count 1.08 X10^3/uL (0.83-4.51); Absolute Neutrophil Count 6.5 X10^3/uL (2.0-7.7); Basophil# 0.04 X10^3/uL; Basophil% 0.5 % (0-1); Eosinophil# 0.18 X10^3/uL; Eosinophils% 2.1 % (0-5); Hematocrit 33.1 % (40-54); Hemoglobin 10.7 g/dL (13.0-16.5); Lymphocyte # 1.08 X10^3/ul (0.83-4.51); Lymphocyte % 12.7 % (19-41); Mean Corp Hgb Conc 32.3 g/dL (32-36); Mean Corpuscular Volume 95.9 fL (80-94); Monocyte# 0.72 X10^3/uL; Monocyte% 8.5 % (0-10); NRBC Flagged by Analyzer 0 % (0-5); Neutrophil # 6.45 X10^3/uL (2.7-7.7); Neutrophil % 75.7 % (47-70); Platelet Count 249 K/mm3 (150-450); RBC Distribution Width SD 59.5 fl (35.1-43.9); Red Blood Count 3.45 M/mm3 (4.6-6.2); White Blood Count 8.5 K/mm3 (4.4-11.0)
[2024-05-26 13:11] LABS: Anion Gap 12 (5-15); BUN 17 mg/dL (4-19); BUN/Creat Ratio 22.6 RATIO (10-20); Calcium,Total 9.2 mg/dL (7.6-11.0); Carbon Dioxide 24.5 mmol/L (21.0-32.0); Chloride 105 mmol/L (98-108); Creatinine, Serum 0.73 mg/dL (0.70-1.20); EST Glomerular Filtration Rate 94 (>60); Glucose 111 mg/dL (70-99); Magnesium 1.9 mg/dL (1.5-2.2); Potassium 3.9 mmol/L (3.3-5.1); Pro- Brain NATRIURETIC PEPTIDE 8777 pg/mL (<=1800); Sodium Level 142 mmol/L (133-145)
== END | disposition home or self-care (01) ==
LOC: BIMLAB 09:34
PROVIDERS: PCP Family Medicine; Referring Provider Physician Assistant Medical; Visit Provider Physician Assistant Medical
DX: R23.1 Pallor (principal); I48.91 Unspecified atrial fibrillation; D64.9 Anemia, unspecified; Z79.01 Long term (current) use of anticoagulants; Z51.81 Encounter for therapeutic drug level monitoring; Z79.899 Other long term (current) drug therapy; R06.02 Shortness of breath; R93.1 Abnormal findings on diagnostic imaging of heart and coronary circulation; R00.0 Tachycardia, unspecified; E03.9 Hypothyroidism, unspecified
CPT/HCPCS: 36415; 80048; 83735; 83880; 84443; 85025

== ENCOUNTER → 2024-06-07 | Outpatient (CLI) | payer MEDICARE, OTHER, SELFPAY ==
[2022-07-02 06:43] VITALS: BMI 26.4
[2024-05-19 10:11] VITALS: BMI 23.8
--- NOTE | 2024-06-07 12:40 | ECHOL_ITS ---
Reason For Study Reason For Study: AFib/FLutter, Re Evaluate EF Procedure This was a limited 2D transthoracic echocardiogram. Exam performed in department. Left Ventricle Normal LV size. Moderately severe global left ventricular systolic dysfunction. The estimated ejection fraction is 30 %. Right Ventricle Normal RV size. Normal systolic function. Atria The left atrium is severely enlarged. The right atrium is moderately enlarged. Mitral Valve There is Moderate focal posterior mitral annular calcification. Moderately severe (3+) mitral valve insufficiency. Tricuspid Valve Normal tricuspid valve. Mild (1+) tricuspid valve insufficiency. Pulmonary artery systolic pressure is 28 mmHg. Aortic Valve Trisinus/trileaflet aortic valve. Moderate focal aortic valve calcification. Mild to moderate aortic stenosis. Trivial aortic valve insufficiency. Pulmonic Valve Normal pulmonic valve. Mild (1+) pulmonic valve insufficiency. Great Vessels Normal sized aortic root. Pericardium/Pleural No pericardial effusion. MMode/2D Measurements & Calculations LVIDd: 5.2 cm IVSd: 1.2 cm LVOT diam: 2.1 cm LVIDs: 4.3 cm LVPWd: 1.1 cm LVOT area: 3.3 cm2 FS: 17.7 % LA dimension: 5.3 cm LAV(MOD-bp): 75.1 ml LVAd ap4: 34.9 cm2 LAV(MOD-bp) Indexed: 39.9 ml/m2 LVLd ap4: 8.5 cm LAV(MOD-sp2): 82.3 ml EDV(MOD-sp4): 120.1 ml LAV(MOD-sp4): 62.4 ml EDV(sp4-el): 122.0 ml LVAs ap4: 28.6 cm2 LVLs ap4: 7.9 cm ESV(MOD-sp4): 86.9 ml ESV(sp4-el): 88.1 ml EF(MOD-sp4): 27.7 % EF(sp4-el): 27.8 % SV(MOD-sp4): 33.2 ml SV(sp4-el): 33.9 ml Aortic Valve Planimetry: 1.1 cm2 SI(MOD-sp4): 17.6 ml/m2 LA A4 area: 19.8 cm2 RA A4 area: 16.6 cm2 Doppler Measurements & Calculations Ao V2 max: 253.6 cm/sec LV V1 max: 89.4 cm/sec MR max umm: 524.6 cm/sec Ao max P.7 mmHg LV V1 max P.2 mmHg MR max P.1 mmHg Ao V2 mean: 177.4 cm/sec LV V1 mean P.8 mmHg MR mean umm: 398.1 cm/sec Ao mean P.2 mmHg LV V1 mean: 63.4 cm/sec MR mean P.3 mmHg Ao V2 VTI: 47.4 cm LV V1 VTI: 16.0 cm MR VTI: 143.8 cm AV (velocity ratio): 0.34 JEROMY(I,D): 1.1 cm2 JEROMY(V,D): 1.2 cm2 SV(LVOT): 52.9 ml TR max umm: 249.6 cm/sec TR max P.9 mmHg ECHO/Echo, Limited Study Interpretation Summary The estimated ejection fraction is 30 %. Moderately severe global left ventricular systolic dysfunction. The left atrium is severely enlarged. The right atrium is moderately enlarged. There is Moderate focal posterior mitral annular calcification. Moderately severe (3+) mitral valve insufficiency. Mild to moderate aortic stenosis. Ordering Physician: Jelly Rogers Referring Physician: Jelly Rogers Performed By: Escobar Pierson RCS
--- NOTE | 2024-06-07 12:40 | CDU_ITS ---
Reason For Study Reason For Study: S/P bilateral CEA Rt. Velocities/BP Lt. Velocities/BP Prox CCA 48.5/11.6 cm/sec. Prox CCA 115.6/30.2 cm/sec. Mid CCA 53.2/15.4 cm/sec. Mid CCA 154.2/39.8 cm/sec. Dist CCA 58.9/17.3 cm/sec. Dist CCA 132.4/29.2 cm/sec. Prox ICA 63/10.2 cm/sec. Prox ICA 51.9/10.2 cm/sec. Mid ICA 71.6/20 cm/sec. Mid ICA 75.3/24.9 cm/sec. Dist ICA 82.6/29.8 cm/sec. Dist ICA 67.9/20 cm/sec. Rt. ICA/CCA = 1.55. Lt. ICA/CCA = 0.49. Prox ECA 113.3 cm/sec. Prox ECA 81.4/10.2 cm/sec. Rt. Vert. 64.1/16.8 cm/sec. Lt. Vert. 54.2/13.5 cm/sec. Right Extracranial There is heterogeneous, irregular atherosclerotic plaque noted in the right common carotid artery. There is intimal thickening but no significant atherosclerotic plaque noted in the right internal carotid artery. There is intimal thickening but no significant atherosclerotic plaque noted in the right external carotid artery. Antegrade flow is noted in the right vertebral artery. Left Extracranial There is heterogeneous, irregular atherosclerotic plaque noted in the left common carotid artery. There is homogeneous, smooth atherosclerotic plaque noted in the left internal carotid artery. There is intimal thickening but no significant atherosclerotic plaque noted in the left external carotid artery. Antegrade flow is noted in the left vertebral artery. Procedure Carotid Duplex [id number]. This is a Carotid Duplex examination using B-mode, color flow and specral Doppler. Exam performed in department. VL/Carotid Duplex Ultrasound Interpretation Summary Normal right extracranial internal carotid. Mild (<50%) stenosis left extracranial internal carotid. Patent and antegrade vertebrals bilaterally. Ordering Physician: Jelly Rogers Referring Physician: Neo Maher M.D. Performed By: Jeanine Reid RVT
== END | disposition home or self-care (01) ==
LOC: CVS 12:38
PROVIDERS: PCP Family Medicine; Referring Provider Physician Assistant Medical; Visit Provider Physician Assistant Medical
DX: I48.0 Paroxysmal atrial fibrillation (principal); Z98.61 Coronary angioplasty status; I65.23 Occlusion and stenosis of bilateral carotid arteries
CPT/HCPCS: 93308; 93880

== ENCOUNTER → 2024-06-08 | Outpatient (CLI) | payer MEDICARE, OTHER, SELFPAY ==
[2024-05-19 10:11] VITALS: BMI 23.8
[2024-06-08 16:37] LABS: Anion Gap 10 (5-15); BUN 24 mg/dL (4-19); BUN/Creat Ratio 40.4 RATIO (10-20); Calcium,Total 9.5 mg/dL (7.6-11.0); Carbon Dioxide 29.6 mmol/L (21.0-32.0); Chloride 105 mmol/L (98-108); EST Glomerular Filtration Rate 100 (>60); Glucose 113 mg/dL (70-99); Potassium 3.8 mmol/L (3.3-5.1); Sodium Level 145 mmol/L (133-145)
== END | disposition home or self-care (01) ==
LOC: BIMLAB 12:15
PROVIDERS: PCP Family Medicine; Referring Provider Physician Assistant Medical; Visit Provider Physician Assistant Medical
DX: Z51.81 Encounter for therapeutic drug level monitoring (principal); R93.1 Abnormal findings on diagnostic imaging of heart and coronary circulation; Z79.899 Other long term (current) drug therapy
CPT/HCPCS: 36415; 80048

== ENCOUNTER 2024-06-13 13:00 | Outpatient (RCR) | payer MEDICARE, OTHER, SELFPAY ==
[2024-05-19 10:11] VITALS: BMI 23.8
== END 2024-06-13 23:59 ==
LOC: CR 13:00
PROVIDERS: PCP Family Medicine; Referring Provider Internal Medicine Cardiovascular Disease; Visit Provider Internal Medicine Cardiovascular Disease
DX: I48.0 Paroxysmal atrial fibrillation (principal); R93.1 Abnormal findings on diagnostic imaging of heart and coronary circulation; I25.10 Atherosclerotic heart disease of native coronary artery without angina pectoris; Z98.61 Coronary angioplasty status; I65.23 Occlusion and stenosis of bilateral carotid arteries; E78.5 Hyperlipidemia, unspecified
CPT/HCPCS: 93798

== ENCOUNTER 2024-07-05 10:47 | Day surgery (SDC) | payer MEDICARE, OTHER, SELFPAY ==
[2024-06-15 09:10] VITALS: BMI 24.3
[2024-07-04 14:33] VITALS: BMI 23.1
--- NOTE | 2024-07-05 12:39 | PCM.OP.PRO2 ---
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 Informed consent was obtained. The patient was seen by Dr. Maher of the critical care division. Anterior pads posterior pads were applied. The patient was then administered 4 mg of intravenous etomidate. 200 J of biphasic DC cardioversion energy were applied with prompt reversal to sinus rhythm. Patient tolerated the procedure well. Procedure findings: Successful DC cardioversion from atrial fibrillation to sinus rhythm. Follow-up as per office protocol. AROLDO Hollis
--- NOTE | 2024-07-05 12:58 | PCM.OP.PRO2 ---
Procedures Pulmonary Pulmonary Procedures /Diagnostic Testin Con Sedation Non-invasive Procedural Procedure Information Date of Procedure: 07/05/24 Description of procedure: CONSCIOUS SEDATION REPORT DATE OF SERVICE: July 05, 2024 BRIEF HISTORY OF PRESENT ILLNESS: The patient is a 78-year-old male who presented to [facility] to undergo an elective outpatient cardioversion due to underlying atrial fibrillation. The patient did report a known history of COPD along with obstructive sleep apnea, for which he is prescribed nocturnal CPAP therapy. He denied any prior anesthetic complications. The patient is systemically anticoagulated on Eliquis. His last surface echocardiogram demonstrated an ejection fraction of approximately 25%. PHYSICAL EXAMINATION: VITAL SIGNS: Reviewed and were acceptable. GENERAL: The patient is a , in no apparent distress, speaking in full sentences. HEENT: Normocephalic, atraumatic. Mucous membranes are moist and pink. Good mouth opening noted. Trachea is midline. MPI CHEST: S1, S2 irregularly irregular. No murmurs, rubs or gallops were noted. LUNGS: Clear to auscultation bilaterally without appreciable wheezes, rales or rhonchi. ABDOMEN: Soft, nontender, nondistended. Positive bowel sounds. EXTREMITIES: There is no clubbing, cyanosis or edema. ASA Class: II DESCRIPTION OF PROCEDURE: After confirmation of informed consent, the patient's anesthesia plan was reviewed in detail. Etomidate was chosen. Risks and benefits were reviewed and the patient agreed to proceed. At 1234, the patient was given 4 mg of etomidate. The patient achieved an appropriate level of sedation and was given a 200 joule synchronized cardioversion by Dr. Mcpherson at the bedside. This was successful in achieving normal sinus rhythm. The patient was monitored until 1247, at which time he reached his baseline mental status and function. The patient tolerated the procedure well. COMPLICATIONS: None ESTIMATED BLOOD LOSS: None RECOMMENDATIONS: Okay to recover in usual fashion.
== END 2024-07-05 13:40 | disposition home or self-care (01) ==
PROVIDERS: PCP Family Medicine; Referring Provider Internal Medicine Cardiovascular Disease; Visit Provider Internal Medicine Cardiovascular Disease
DX: I48.91 Unspecified atrial fibrillation (principal); J44.9 Chronic obstructive pulmonary disease, unspecified; Z79.01 Long term (current) use of anticoagulants; G47.33 Obstructive sleep apnea (adult) (pediatric)
CPT/HCPCS: 92960; 93005

== ENCOUNTER → 2024-07-11 | Outpatient (CLI) | payer MEDICARE, OTHER, SELFPAY ==
[2022-07-02 06:43] VITALS: BMI 26.4
[2024-05-19 10:11] VITALS: BMI 23.8
[2024-06-15 09:10] VITALS: BMI 24.3
--- NOTE | 2024-07-11 10:42 | ART_ITS ---
Reason For Study Reason For Study: Claudication Procedure A bilateral lower extremity continuous wave Doppler with analog waveform analysis,segmental pressures,and ankle brachial indexes without exercise. Did not exercise patient due to extensive cardiac history. Left Segmental Pressures Left brachial= 140mmHg. Left low thigh = >254mmHg. Left calf = >254mmHg. Left posterior tibial artery = 97mmHg. Left dorsalis pedis artery = 112mmHg. Left digit = 55 mmHg. Right Segmental Pressures Right brachial= 127mmHg. Right posterior tibial artery = 115mmHg. Right dorsalis pedis artery = 175mmHg. Right digit = 60 mmHg. Indices The right ankle brachial index by the posterior tibial artery is 0.82. The right ankle brachial index by the dorsalis pedis is 1.25. The right digital-brachial index is 0.43. The left ankle brachial index by the posterior tibial artery is 0.69. The left ankle brachial index by the dorsalis pedis is 0.80. The left digital-brachial index is 0.39. VL/Lower Ext Art Exam w/o Exercis Interpretation Summary Right JABARI 1.25, may be artificially elevated. Doppler/PVR waveforms mildly dimi nished distal SFA/popliteal. TBI diminished consistent with presence of disease. Left JABARI 0.8, moderate arterial insufficiency. Doppler/PVR waveforms and segmen josey pressures reveal distal SFA/popliteal disease. Ordering Physician: Jelly Rogers Referring Physician: Humphrey Maher Performed By: Lisa Saez RDCS/RVT
== END | disposition home or self-care (01) ==
LOC: CVS 10:42
PROVIDERS: PCP Family Medicine; Referring Provider Physician Assistant Medical; Visit Provider Physician Assistant Medical
DX: I73.9 Peripheral vascular disease, unspecified (principal)
CPT/HCPCS: 93923

== ENCOUNTER 2024-07-13 13:00 | Outpatient (RCR) | payer MEDICARE, OTHER, SELFPAY ==
[2024-05-19 10:11] VITALS: BMI 23.8
--- NOTE | 2024-06-15 09:02 | CR.ITP_ITS ---
Exercise - Initial Assessment Visit Session #:: 6 Physician Prescribed Exercise Modalities: Treadmill, Schwinn Airdyne AD-7 and SciFit Stepper Nutrition - Initial Assessment Weight Mgt (Other Care) Height: 5 ft 9 in Weight:: 165 lb BMI: 24.3 Psychosocial - Initial Assess Target Goals Target Goals Referral to Behavioral Health PS - Interventions: Yes: Attend Stress Management Classes Patient Health Questionnaire PHQ-9 Screening 30-Day Re-eval Assessment: 1. Little interest or pleasure in doing things: Not at all 2. Feeling down, depressed, or hopeless: Not at all 3. Trouble falling or staying asleep, or sleeping too much: Not at all 4. Feeling tired or having little energy: Several days 5. Poor appetite or overeating: Not at all 6. Feeling bad about yourself -- or that you are a failure or have let yourself or your family down: Not at all 7. Trouble concentrating on things, such as reading the newspaper or watching television: Not at all 8. Moving or speaking so slowly that other people could have noticed. Or the opposite - being so fidgety or restless that you have been moving around a lot more than usual: Not at all 9. Thoughts that you would be better off , or of hurting yourself in some way: Not at all How difficult have these problems made it for you to do your work, take care of things at home, or get along with other people?: Not difficult at all Total Score: 1 Self-Efficacy 6-Item Scale 30-Day Re-eval Assessment: We would like to know how confident you are in doing certain activities. Please select your confidence level for: Fatigue Select Number: 9 Physical Discomfort or Pain Select Number: 9 Emotional Distress Select Number: 9 Other Symptoms or Health Problems Select Number: 9 Different Tasks and Activities Select Number: 9 Medication Select Number: 8 Total Score:: 8 Nutrition Survey Nutrition Survey Instructions Scoring Instructions Exercise - 30-day Assessment Visit Date of Eval: 06/15/24 Session #:: 6 Physician Prescribed Exercise Modalities: Treadmill, Schwinn Airdyne AD-7 and SciFit Stepper Frequency: 3x/week for 12 weeks [36 sessions] Intensity: 60-80% of age predicted maximum heart rate reserve Duration: 30 - 45 minutes Current METSs:: 3.6 Target Heart Rate:: 86-108 Current RPE:: 12-12.5 Maximum Excercise HR:: 129 Resting Blood Pressure: 118/52 Maximum Exercise Blood Pressure: 124/58 EKG Type: A-fib with occas PVC Outcomes & Goals Goals:: Verbalizes understanding of THR, RPE & goal METS by session 6, Documents in home exercise log/reports 30 min aerobic 5 day/wk by DC, Demonstrates accurate pulse taking by DC and Other additional outcome/goals: see below Intervention & Plan Exercise Program Goals: Instruct on personal THR & RPE, Instruct on MET level & personal MET goal, Show patient to take own pulse /validate performance until accurate, Instruct on home exercise and Other additional plan/int Physical Activity Home Exercise Physical Activity - Home Exercise: Safe Exercise, Warm-up, Self-monitoring, Cool-Down, Home Exercise > 30 min Daily and Sitting Time <3 hours/daily Outcomes & Goals Outcomes/Goals: Demonstrates correct Warm-up/exercise Cool-Down (S3) if = 2.5 METs, Verbalizes symptoms of exercise intolerance by Session 3 (S3), Demonstrate safe equipment use (S3) & follows exercise prescrition (6) and Other: See below Intervention & Plan Plan/Intervention: Instruct warm-up & cool-down if exercising at > 2 METs, Instruct on symptoms of exercise intolerance & actions to take, Instruct & monitor on saf, Assess intial functional capacity & safety risk and Other See below 30-day Reassessments 30 day Reassessments:: Progressing Reassessment Notes & Comments:: RPE explained to pt. Pt demonstrates unde rstanding in his daily sessions. Exercise - 60-day Assessment Physician Prescribed Exercise Modalities: Treadmill, Schwinn Airdyne AD-7 and SciFit Stepper Exercise - 90-day Assessment Physician Prescribed Exercise Modalities: Treadmill, Schwinn Airdyne AD-7 and SciFit Stepper Exercise - Final/Discharge Physician Prescribed Exercise Modalities: Treadmill, Schwinn Airdyne AD-7 and SciFit Stepper Nutrition - 30-Day Assessment Program Goals Nutrition Program Goals Patient has diagnosis of Hyperlipidemia (ICD E78)?: Yes Visit Date of Eval: 06/15/24 Session #:: 6 Cholesterol/Lipids (Other Core Measures) Determine presence & major risk factors that modify LDL goal: Cigarette smoking, Hypertension or hypertensive medication, Low HDL cholesterol <40 mg/dL*, Family history of premature CHD in Male < 55 years: female <65 yearsFa and Age men > 45 years; women >/= 55 years Outcomes/Goals: Pt IDs own risk factors & lifestyle modifications by Session 10, Verbalizes symptoms of angina & response by session 3., Pt independently manages and Other Additional Outcomes/Goals: Intervention/Plan: Advocate for lipid panel cholesterol medication if applicable, Instruct on personal lipid levels & lipid goals/NCEP guidelines, Instruct on cholesterol and Other additional plan/int Diabetes (Other Core Measures) Diabetes Type: Not Applicable Weight Mgt (Other Care) Height: 5 ft 9 in Weight:: 165 lb BMI: 24.3 Diagnosis Overweight/Obesity BMI> 30% ICD-10 E66: No Diagnosis High BMI/Morbid Obesity BMI> 35% ICD-10 Z68: No Outcomes/Goals: Pt sets, maintains & shows weight loss goal & trend during rehab and Other additional outcomes/goals Intervention/Plan: Instruct on ideal BMI & set weight loss goal w/patient, Assist pt to ID & incorporate diet changes for weight loss by S9, Refer to Structured Weight Loss program as appropriate, Encourage goal of using 250-300dcal per session for weight loss and Other additional plan/interventions Healthy Eating Habits Will attend diet classes:: Yes Outcomes/Goals:: Consume diet rich in vegs,fruits,whole grain/high fiber,fish,lean meat, Limit sat/trans fats,cholesterol & added salts & sugars and Other additional outcome/goals: Intervention/Plan:: Assess current eating habits and Other Additional plan/interventions 30-day Reassessments:: Progressing Reassessment Notes & Comments:: Pt is scheduled to attend nutrition class. Heart healthy low sodium diet encouraged. Education Gave educational materials for:: Signs & symptoms of hypoglycemia, Signs & symptoms of hyperglycemia, Relate diabetes to coronary artery disease and Healthy eating Nutrition - 60-Day Assessment Weight Mgt (Other Care) Height: 5 ft 9 in Weight:: 165 lb BMI: 24.3 Core - 30-Day Assessment Visit Date of Eval: 06/15/24 Session #:: 6 Medication Compliance Preventative Medication(s):: Aspirin, JANNA inhibitor, Clopidogrel/P2Y12 inhibit, Statin/lipid and Eliquis H/O mental health issues: depression, anxiety, or addiction?: No Doesn?t believe in the benefits of treatment?: No Believes medications are unnecessary or harmful?: No Has a concern about medication side effects?: No Expresses concern over the cost of medications?: No Outcomes/Goals: Verbalizes medications,desired effect & common side effects @ DC, Pt self-reports following medication regimen, Keeps card in wallet w/medications listed by DC and Other additional outcome/goals: Interventions/plans: Instruct on medication effects & side effects, Review medication list w/patient every two weeks, Instruct importance of taking meds as ordered & assist problem solving and Other additional Tobacco Use Tobacco Use: Non-smoker How long ago did you quit using tobacco products?: Greater than or equal to 6 months ago (Pt stopped smoking 30 years ago.) Do you use smokeless tobacco?: No Outcomes/Goals: Smoking cessation achieved or maintained by discharge, Identify aids/strategies for achieving smoking cessation by session 6 and Other additional outcome/goals Interventions/plan: Instruct on effects of smoking & provide smoking cessation resource, Assist pt to set quit date & provide encouragement, Assist pt to develop strategies to achieve/maintain quit date, Assist pt w/nicotine replacement & medication for cessation success and Other additional plan/interventions Hypertension Hypertension Diagnosis:: Hypertension ICD-10 I10 Resting Blood Pressure:: 118/52 [place] [employer] Hypertension Guidelines Peak Exercise Blood Pressure:: 124/58 Outcomes/Goals: Able to verbalize/achieve optimal blood pressure <130/80, Incorporates diet changes & exercise for blood pressure control by DC and Other additional outcomes/goals Interventions/plan: Instruct on optimal blood pressure, hypertension & medications, Instruct on effects of sodium, alcohol, stress, exercise &hypertension and Other additional plan/interventions 30 day Reassessments:: Progressing Reassessment Notes & Comments:: Pt's BP's are within AHA normal limits on most days. Will continue to monitor and report to physician if necessary. Tobacco Cessation Referral Smoking Cessation Referral:: No Individual Education/Counseling:: No Education Schedule Given:: Yes Psychosocial - 30-Day Assess VIsit Date of Eval: 06/15/24 Session #:: 6 History of previous Mental disease:: No Target Goals Target Goals Psychosocial Test Tool Used:: Anaans Kennedy QOL Cardiac and PHQ-9 Questionnaire phq-9 Severity See PHQ-9 Score: 1 Referral to Behavioral Health PS - Interventions: Yes: Attend Stress Management Classes Outcomes/Goals: See list Psychosocial Outcomes/Goals:: ID's personal stressors & 2 strategies to manage stress by discharge and Other Additional outcome/goals: Intervention/Plan: See List Interventions/Plan:: Assess stressors,coping strategies & signs of derpression on admission, Instruct/assist pt to develop coping & personal stress Mgt strategies, Refer to Behavioral Health if appropriate, Refer to Physician if appropriate, Instruct patient to recognize signs & symptoms of depression, Instruct patient to recog and Other additional plan/intervention 30-day Reassessments: 30 day Reassessments:: Met Reassessment Notes & Comments:: Pt denies any psychosocial issues at this time. Psychosocial - 60-Day Assess Target Goals Target Goals Referral to Behavioral Health PS - Interventions: Yes: Attend Stress Management Classes Outcomes/Goals: See list Psychosocial Outcomes/Goals:: ID's personal stressors & 2 strategies to manage stress by discharge and Other Additional outcome/goals: Psychosocial - 90-Day Assess Target Goals Target Goals Referral to Behavioral Health PS - Interventions: Yes: Attend Stress Management Classes Psychosocial - Final Assessmen Target Goals Target Goals Referral to Behavioral Health PS - Interventions: Yes: Attend Stress Management Classes Nutrition - 90-Day Assessment Weight Mgt (Other Care) Height: 5 ft 9 in Weight:: 165 lb BMI: 24.3 Nutrition - Final Assessment Weight Mgt (Other Care) Height: 5 ft 9 in Weight:: 165 lb BMI: 24.3
[2024-06-15 09:10] VITALS: BP 118/52; BMI 24.3
[2024-06-15 09:14] VITALS: BP 118/52
== END 2024-07-13 23:59 ==
LOC: CR 13:00
PROVIDERS: PCP Family Medicine; Referring Provider Internal Medicine Cardiovascular Disease; Visit Provider Internal Medicine Cardiovascular Disease
DX: I50.9 Heart failure, unspecified; R93.1 Abnormal findings on diagnostic imaging of heart and coronary circulation; I48.0 Paroxysmal atrial fibrillation; I25.10 Atherosclerotic heart disease of native coronary artery without angina pectoris; Z98.61 Coronary angioplasty status; I65.23 Occlusion and stenosis of bilateral carotid arteries; E78.5 Hyperlipidemia, unspecified
CPT/HCPCS: 93798

== ENCOUNTER → 2024-07-14 | Outpatient (CLI) | payer MEDICARE, OTHER, SELFPAY ==
[2024-06-15 09:10] VITALS: BMI 24.3
[2024-07-14 10:46] VITALS: BMI 23.3
[2024-07-14 17:51] LABS: PSA,Total- Diagnostic 0.06 ng/mL (0.00-4.00)
== END | disposition home or self-care (01) ==
LOC: BIMLAB 15:16
PROVIDERS: PCP Family Medicine; Referring Provider Urology; Visit Provider Urology
DX: R97.20 Elevated prostate specific antigen [PSA] (principal)
CPT/HCPCS: 36415; 84153

== ENCOUNTER 2024-08-10 13:00 | Outpatient (RCR) | payer MEDICARE, OTHER, SELFPAY ==
[2024-06-15 09:10] VITALS: BMI 24.3
[2024-07-14 00:32] VITALS: BP 118/52
--- NOTE | 2024-07-14 10:32 | PCM.CR.ITP ---
Exercise - Initial Assessment Physician Prescribed Exercise Modalities: Nader Shawne AD-7 and SciFit Stepper Nutrition - Initial Assessment Weight Mgt (Other Care) Height: 5 ft 9 in Weight:: 158 lb 8 oz BMI: 23.3 Core - Initial Assessment Hypertension Resting Blood Pressure:: 102/52 [place] [employer] Hypertension Guidelines Psychosocial - Initial Assess Target Goals Target Goals Referral to Behavioral Health PS - Interventions: Yes: Attend Stress Management Classes Patient Health Questionnaire PHQ-9 Screening 60-Day Re-eval Assessment: 1. Little interest or pleasure in doing things: Not at all 2. Feeling down, depressed, or hopeless: Not at all 3. Trouble falling or staying asleep, or sleeping too much: Not at all 4. Feeling tired or having little energy: Several days 5. Poor appetite or overeating: Not at all 6. Feeling bad about yourself -- or that you are a failure or have let yourself or your family down: Not at all 7. Trouble concentrating on things, such as reading the newspaper or watching television: Not at all 8. Moving or speaking so slowly that other people could have noticed. Or the opposite - being so fidgety or restless that you have been moving around a lot more than usual: Not at all 9. Thoughts that you would be better off , or of hurting yourself in some way: Not at all How difficult have these problems made it for you to do your work, take care of things at home, or get along with other people?: Not difficult at all Total Score: 1 Self-Efficacy 6-Item Scale 60-Day Re-eval Assessment: We would like to know how confident you are in doing certain activities. Please select your confidence level for: Fatigue Select Number: 9 Physical Discomfort or Pain Select Number: 9 Emotional Distress Select Number: 9 Other Symptoms or Health Problems Select Number: 9 Different Tasks and Activities Select Number: 9 Medication Select Number: 8 Total Score:: 8 Nutrition Survey Nutrition Survey Instructions Scoring Instructions Exercise - 30-day Assessment Physician Prescribed Exercise Modalities: Jaken Colinne AD-7 and SciFit Stepper Exercise - 60-day Assessment Visit Date of Eval: 07/14/24 Session #:: 17 Physician Prescribed Exercise Modalities: Jaken Colinne AD-7 and SciFit Stepper Frequency: 3x/week for 12 weeks [36 sessions] Intensity: 60-80% of age predicted maximum heart rate reserve Duration: 30 - 45 minutes Current METSs:: 3.6 Target Heart Rate:: 86-108 Current RPE:: 12-12.5 Maximum Excercise HR:: 127 Resting Blood Pressure: 120/50 Maximum Exercise Blood Pressure: 110/52 EKG Type: A-fib w/ occas PVC, rate controlled Outcomes & Goals Goals:: Verbalizes understanding of THR, RPE & goal METS by session 6, Documents in home exercise log/reports 30 min aerobic 5 day/wk by DC, Demonstrates accurate pulse taking by DC and Other additional outcome/goals: see below Intervention & Plan Exercise Program Goals: Instruct on personal THR & RPE, Instruct on MET level & personal MET goal, Show patient to take own pulse /validate performance until accurate, Instruct on home exercise and Other additional plan/int Physical Activity Home Exercise Physical Activity - Home Exercise: Safe Exercise, Warm-up, Self-monitoring, Cool-Down, Home Exercise > 30 min Daily and Sitting Time <3 hours/daily Outcomes & Goals Outcomes/Goals: Demonstrates correct Warm-up/exercise Cool-Down (S3) if = 2.5 METs, Verbalizes symptoms of exercise intolerance by Session 3 (S3), Demonstrate safe equipment use (S3) & follows exercise prescrition (6) and Other: See below Intervention & Plan Plan/Intervention: Instruct warm-up & cool-down if exercising at > 2 METs, Instruct on symptoms of exercise intolerance & actions to take, Instruct & monitor on saf, Assess intial functional capacity & safety risk and Other See below 30-day Reassessments 30 day Reassessments:: Progressing Reassessment Notes & Comments:: Proper warm up and cool down demonstrated and explained to pt. Pt is able to return demonstration in his daily sessions. Exercise - 90-day Assessment Physician Prescribed Exercise Modalities: Nader Ocasio AD-7 and SciFit Stepper Exercise - Final/Discharge Physician Prescribed Exercise Modalities: Nader Ocasio AD-7 and SciFit Stepper Nutrition - 30-Day Assessment Weight Mgt (Other Care) Height: 5 ft 9 in Weight:: 158 lb 8 oz BMI: 23.3 Nutrition - 60-Day Assessment Program Goals Nutrition Program Goals Patient has diagnosis of Hyperlipidemia (ICD E78)?: Yes Visit Date of Eval: 07/14/24 Session #:: 17 Cholesterol/Lipids (Other Core Measures) Determine presence & major risk factors that modify LDL goal: Cigarette smoking, Hypertension or hypertensive medication, Low HDL cholesterol <40 mg/dL*, Family history of premature CHD in Male < 55 years: female <65 yearsFa and Age men > 45 years; women >/= 55 years Outcomes/Goals: Pt IDs own risk factors & lifestyle modifications by Session 10, Verbalizes symptoms of angina & response by session 3., Pt independently manages and Other Additional Outcomes/Goals: Intervention/Plan: Advocate for lipid panel cholesterol medication if applicable, Instruct on personal lipid levels & lipid goals/NCEP guidelines, Instruct on cholesterol and Other additional plan/int Diabetes (Other Core Measures) Diabetes Type: Not Applicable Weight Mgt (Other Care) Height: 5 ft 9 in Weight:: 158 lb 8 oz BMI: 23.3 Diagnosis Overweight/Obesity BMI> 30% ICD-10 E66: No Diagnosis High BMI/Morbid Obesity BMI> 35% ICD-10 Z68: No Outcomes/Goals: Pt sets, maintains & shows weight loss goal & trend during rehab and Other additional outcomes/goals Healthy Eating Habits Will attend diet classes:: Yes Outcomes/Goals:: Consume diet rich in vegs,fruits,whole grain/high fiber,fish,lean meat, Limit sat/trans fats,cholesterol & added salts & sugars and Other additional outcome/goals: Intervention/Plan:: Assess current eating habits and Other Additional plan/interventions 30-day Reassessments:: Met Reassessment Notes & Comments:: Pt has attended nutrition class and understands the benefits of a heart healthy low sodium diet. Education Gave educational materials for:: Signs & symptoms of hypoglycemia, Signs & symptoms of hyperglycemia, Relate diabetes to coronary artery disease and Healthy eating Core - Final Assessment Hypertension Resting Blood Pressure:: 102/52 [place] [employer] Hypertension Guidelines Core - 60-Day Assessment Visit Date of Eval: 07/14/24 Session #:: 17 Medication Compliance Preventative Medication(s):: Aspirin, JANNA inhibitor, Clopidogrel/P2Y12 inhibit, Statin/lipid and Eliquis H/O mental health issues: depression, anxiety, or addiction?: No Doesn?t believe in the benefits of treatment?: No Believes medications are unnecessary or harmful?: No Has a concern about medication side effects?: No Expresses concern over the cost of medications?: No Outcomes/Goals: Verbalizes medications,desired effect & common side effects @ DC, Pt self-reports following medication regimen, Keeps card in wallet w/medications listed by DC and Other additional outcome/goals: Interventions/plans: Instruct on medication effects & side effects, Review medication list w/patient every two weeks, Instruct importance of taking meds as ordered & assist problem solving and Other additional Tobacco Use Tobacco Use: Non-smoker Hypertension Hypertension Diagnosis:: Hypertension ICD-10 I10 Resting Blood Pressure:: 120/50 Resting Blood Pressure:: 102/52 [place] [employer] Hypertension Guidelines Peak Exercise Blood Pressure:: 110/52 Outcomes/Goals: Able to verbalize/achieve optimal blood pressure <130/80, Incorporates diet changes & exercise for blood pressure control by DC and Other additional outcomes/goals Interventions/plan: Instruct on optimal blood pressure, hypertension & medications, Instruct on effects of sodium, alcohol, stress, exercise &hypertension and Other additional plan/interventions 30 day Reassessments:: Met Reassessment Notes & Comments:: Pt's BP's are within AHA normal limits. Will continue to monitor and report to pt's physician if necessary. Tobacco Cessation Referral Smoking Cessation Referral:: No Individual Education/Counseling:: No Education Schedule Given:: Yes Psychosocial - 30-Day Assess Target Goals Target Goals Referral to Behavioral Health PS - Interventions: Yes: Attend Stress Management Classes Outcomes/Goals: See list Psychosocial Outcomes/Goals:: ID's personal stressors & 2 strategies to manage stress by discharge and Other Additional outcome/goals: Psychosocial - 60-Day Assess VIsit Date of Eval: 07/14/24 Session #:: 17 History of previous Mental disease:: No Target Goals Target Goals Psychosocial Test Tool Used:: Kynded QOL Cardiac and PHQ-9 Questionnaire phq-9 Severity See PHQ-9 Score: 1 Referral to Behavioral Health PS - Interventions: Yes: Attend Stress Management Classes Outcomes/Goals: See list Psychosocial Outcomes/Goals:: ID's personal stressors & 2 strategies to manage stress by discharge and Other Additional outcome/goals: Intervention/Plan: See List Interventions/Plan:: Assess stressors,coping strategies & signs of derpression on admission, Instruct/assist pt to develop coping & personal stress Mgt strategies, Refer to Behavioral Health if appropriate, Refer to Physician if appropriate, Instruct patient to recognize signs & symptoms of depression, Instruct patient to recog and Other additional plan/intervention 30-day Reassessments: 30 day Reassessments:: Met Reassessment Notes & Comments:: Pt denies any psychosocial issues at this time Psychosocial - 90-Day Assess Target Goals Target Goals Referral to Behavioral Health PS - Interventions: Yes: Attend Stress Management Classes Psychosocial - Final Assessmen Target Goals Target Goals Referral to Behavioral Health PS - Interventions: Yes: Attend Stress Management Classes Nutrition - 90-Day Assessment Weight Mgt (Other Care) Height: 5 ft 9 in Weight:: 158 lb 8 oz BMI: 23.3 Nutrition - Final Assessment Weight Mgt (Other Care) Height: 5 ft 9 in Weight:: 158 lb 8 oz BMI: 23.3
[2024-07-14 10:46] VITALS: BP 102/52; BP 120/50; BMI 23.3
--- NOTE | 2024-08-12 09:25 | CR.ITP_ITS ---
Exercise - Initial Assessment Physician Prescribed Exercise Modalities: Nader Ocasio AD-7, SciFit Stepper and SciFit Pro-II Ergometer Nutrition - Initial Assessment Weight Mgt (Other Care) Height: 5 ft 9 in Weight:: 159 lb BMI: 23.4 BMI (Report if calculated above): 23.4 Psychosocial - Initial Assess Target Goals Target Goals Referral to Behavioral Health PS - Interventions: Yes: Attend Stress Management Classes Patient Health Questionnaire PHQ-9 Screening 90-Day Re-eval Assessment: 1. Little interest or pleasure in doing things: Not at all 2. Feeling down, depressed, or hopeless: Not at all 3. Trouble falling or staying asleep, or sleeping too much: Not at all 4. Feeling tired or having little energy: Several days 5. Poor appetite or overeating: Not at all 6. Feeling bad about yourself -- or that you are a failure or have let yourself or your family down: Not at all 7. Trouble concentrating on things, such as reading the newspaper or watching television: Not at all 8. Moving or speaking so slowly that other people could have noticed. Or the opposite - being so fidgety or restless that you have been moving around a lot more than usual: Not at all 9. Thoughts that you would be better off , or of hurting yourself in some way: Not at all How difficult have these problems made it for you to do your work, take care of things at home, or get along with other people?: Not difficult at all Total Score: 1 Self-Efficacy 6-Item Scale 90-Day Re-eval Assessment: We would like to know how confident you are in doing certain activities. Please select your confidence level for: Fatigue Select Number: 9 Physical Discomfort or Pain Select Number: 9 Emotional Distress Select Number: 9 Other Symptoms or Health Problems Select Number: 9 Different Tasks and Activities Select Number: 9 Medication Select Number: 8 Total Score:: 8 Nutrition Survey Nutrition Survey Instructions Scoring Instructions Exercise - 30-day Assessment Physician Prescribed Exercise Modalities: Nader Shawne AD-7, SciFit Stepper and SciFit Pro-II Ergometer Exercise - 60-day Assessment Physician Prescribed Exercise Modalities: Nader Ocasio AD-7, SciFit Stepper and SciFit Pro-II Ergometer Exercise - 90-day Assessment Visit Date of Eval: 08/12/24 Session #:: 25 Physician Prescribed Exercise Modalities: Web and Rankinn Airdyne AD-7, SciFit Stepper and SciFit Pro-II Ergometer Frequency: 3x/week for 12 weeks [36 sessions] Intensity: 60-80% of age predicted maximum heart rate reserve Duration: 30 - 45 minutes METs - Progression 0.5-1.0 weekly:: 0.5-1.0 Current METSs:: 4.5 Target Heart Rate:: 86-122 Target RPE 12-16:: 12-16 Current RPE:: 12 Maximum Excercise HR:: 145 Resting Blood Pressure: 100/48 Maximum Exercise Blood Pressure: 92/42 EKG Type: A Fib with occ PVCs Current Physical Activity or Exercising minutes: 30-45 Outcomes & Goals Goals:: Verbalizes understanding of THR, RPE & goal METS by session 6, Documents in home exercise log/reports 30 min aerobic 5 day/wk by DC and Demonstrates accurate pulse taking by DC Intervention & Plan Exercise Program Goals: Instruct on personal THR & RPE, Instruct on MET level & personal MET goal, Show patient to take own pulse /validate performance until accurate and Instruct on home exercise 30-day Reassessments 30 day Reassessments:: Progressing Reassessment Notes & Comments:: Pt progressing in MET goal limited by elevated HR due to a fib, pt uses RPE scale appropriately Physical Activity Home Exercise Physical Activity - Home Exercise: Safe Exercise, Warm-up, Self-monitoring, Cool-Down, Home Exercise > 30 min Daily and Sitting Time <3 hours/daily Outcomes & Goals Outcomes/Goals: Demonstrates correct Warm-up/exercise Cool-Down (S3) if = 2.5 METs, Verbalizes symptoms of exercise intolerance by Session 3 (S3) and Demonstrate safe equipment use (S3) & follows exercise prescrition (6) Intervention & Plan Plan/Intervention: Instruct warm-up & cool-down if exercising at > 2 METs, Instruct on symptoms of exercise intolerance & actions to take, Instruct & monitor on saf and Assess intial functional capacity & safety risk 30-day Reassessments 30 day Reassessments:: Met Reassessment Notes & Comments:: Pt warms up and cools down correctly with no instruction, pt aware of exercise intolerance and actions to take, pt understands safety risks Exercise - Final/Discharge Physician Prescribed Exercise Modalities: Schwinn Airdyne AD-7, SciFit Stepper and SciFit Pro-II Ergometer Nutrition - 30-Day Assessment Weight Mgt (Other Care) Height: 5 ft 9 in Weight:: 159 lb BMI: 23.4 BMI (Report if calculated above): 23.4 Nutrition - 60-Day Assessment Weight Mgt (Other Care) Height: 5 ft 9 in Weight:: 159 lb BMI: 23.4 BMI (Report if calculated above): 23.4 Core - 30-Day Assessment Hypertension [place] [employer] Hypertension Guidelines Reassessment Notes & Comments:: Pt maintains optimal BP at rest and takes all BP medications as prescribed Core - Final Assessment Hypertension [place] [employer] Hypertension Guidelines Reassessment Notes & Comments:: Pt maintains optimal BP at rest and takes all BP medications as prescribed Core - 90 Day Assessment Visit Date of Eval: 08/12/24 Session #:: 25 Medication Compliance Preventative Medication(s):: JANNA inhibitor, Clopidogrel/P2Y12 inhibit, Statin/lipid, Beta kaylene and Eliquis H/O mental health issues: depression, anxiety, or addiction?: No Doesn?t believe in the benefits of treatment?: No Believes medications are unnecessary or harmful?: No Has a concern about medication side effects?: No Expresses concern over the cost of medications?: No Outcomes/Goals: Verbalizes medications,desired effect & common side effects @ DC, Pt self-reports following medication regimen and Keeps card in wallet w/medications listed by DC Interventions/plans: Instruct on medication effects & side effects, Review medication list w/patient every two weeks and Instruct importance of taking meds as ordered & assist problem solving 30-day Reassessments:: Met Reassessment Notes & Comments:: Pt taking all medications as prescribed and working with PCP and records management manager to optimize medication regimen Tobacco Use Tobacco Use: Non-smoker 30-day Reassessments:: Met Reassessment Notes & Comments:: Pt is nonsmoker Hypertension Hypertension Diagnosis:: Hypertension ICD-10 I10 Resting Blood Pressure:: 100/48 [place] [employer] Hypertension Guidelines Peak Exercise Blood Pressure:: 92/42 Outcomes/Goals: Able to verbalize/achieve optimal blood pressure <130/80 and Incorporates diet changes & exercise for blood pressure control by DC Interventions/plan: Instruct on optimal blood pressure, hypertension & me dications and Instruct on effects of sodium, alcohol, stress, exercise &hypertension 30 day Reassessments:: Met Reassessment Notes & Comments:: Pt maintains optimal BP at rest and takes all BP medications as prescribed Tobacco Cessation Referral Smoking Cessation Referral:: No Individual Education/Counseling:: No Education Schedule Given:: Yes Psychosocial - 30-Day Assess Target Goals Target Goals Referral to Behavioral Health PS - Interventions: Yes: Attend Stress Management Classes Psychosocial - 60-Day Assess Target Goals Target Goals Referral to Behavioral Health PS - Interventions: Yes: Attend Stress Management Classes Psychosocial - 90-Day Assess VIsit Date of Eval: 08/12/24 Session #:: 25 History of previous Mental disease:: No History of Emotional Disorders: None Target Goals Target Goals Psychosocial Test Tool Used:: PHQ-9 Questionnaire phq-9 Severity See PHQ-9 Score: 1 Total Score:: 1 Referral to Behavioral Health PS - Interventions: Yes: Attend Stress Management Classes Outcomes/Goals: See list Psychosocial Outcomes/Goals:: ID's personal stressors & 2 strategies to manage stress by discharge Intervention/Plan: See List Interventions/Plan:: Assess stressors,coping strategies & signs of derpression on admission, Instruct/assist pt to develop coping & personal stress Mgt strategies, Refer to Behavioral Health if appropriate, Refer to Physician if appropriate, Instruct patient to recognize signs & symptoms of depression and Other additional plan/intervention 30-day Reassessments: 30 day Reassessments:: Met Reassessment Notes & Comments:: Pt denies any psychosocial issues at this time. Psychosocial - Final Assessmen Target Goals Target Goals Psychosocial Test phq-9 Severity Total Score:: 1 Referral to Behavioral Health PS - Interventions: Yes: Attend Stress Management Classes Nutrition - 90-Day Assessment Program Goals Nutrition Program Goals Patient has diagnosis of Hyperlipidemia (ICD E78)?: Yes Visit Date of Eval: 08/12/24 Session #:: 25 Cholesterol/Lipids (Other Core Measures) Triglycerides (mg/dL): 151 Total Cholesterol (mg/dL): 87 LDL Cholesterol (mg/dL): 27 HDL Cholesterol (mg/dL): 30 Lipid Medication: atorvastatin 40 QHS Determine presence & major risk factors that modify LDL goal: Cigarette smoking, Hypertension or hypertensive medication, Low HDL cholesterol <40 mg/dL*, Family history of premature CHD in Male < 55 years: female <65 yearsFa and Age men > 45 years; women >/= 55 years Outcomes/Goals: Pt IDs own risk factors & lifestyle modifications by Session 10, Verbalizes symptoms of angina & response by session 3. and Pt independently manages Intervention/Plan: Advocate for lipid panel cholesterol medication if a pplicable, Instruct on personal lipid levels & lipid goals/NCEP guidelines and Instruct on cholesterol 30-day Reassessments:: Met Reassessment Notes & Comments:: Pt taking medications as prescribed, pt attending dietary classes Diabetes (Other Core Measures) Diabetes Type: Not Applicable Weight Mgt (Other Care) Not Applicable: No Height: 5 ft 9 in Weight:: 159 lb BMI: 23.4 BMI (Report if calculated above): 23.4 Diagnosis Overweight/Obesity BMI> 30% ICD-10 E66: No Diagnosis High BMI/Morbid Obesity BMI> 35% ICD-10 Z68: No Outcomes/Goals: Pt sets, maintains & shows weight loss goal & trend during rehab Intervention/Plan: Instruct on ideal BMI & set weight loss goal w/patient, Assist pt to ID & incorporate diet changes for weight loss by S9, Refer to Structured Weight Loss program as appropriate and Encourage goal of using 250- 300dcal per session for weight loss 30 day Reassessments:: Met Reassessment Notes & Comments:: Pt currently at acceptable healthy BMI Education Gave educational materials for:: Signs & symptoms of hypoglycemia, Signs & symptoms of hyperglycemia, Relate diabetes to coronary artery disease and Healthy eating Nutrition - Final Assessment Weight Mgt (Other Care) Height: 5 ft 9 in Weight:: 159 lb BMI: 23.4 BMI (Report if calculated above): 23.4
[2024-08-12 09:30] VITALS: BP 100/48
[2024-08-12 09:40] VITALS: BP 100/48; BMI 23.4
== END 2024-08-13 23:59 ==
LOC: CR 13:00
PROVIDERS: PCP Family Medicine; Referring Provider Internal Medicine Cardiovascular Disease; Visit Provider Internal Medicine Cardiovascular Disease
DX: R93.1 Abnormal findings on diagnostic imaging of heart and coronary circulation; I48.0 Paroxysmal atrial fibrillation; I25.10 Atherosclerotic heart disease of native coronary artery without angina pectoris; Z98.61 Coronary angioplasty status; I65.23 Occlusion and stenosis of bilateral carotid arteries; E78.5 Hyperlipidemia, unspecified
CPT/HCPCS: 93798

== ENCOUNTER 2024-08-29 13:00 | Outpatient (RCR) | payer MEDICARE, OTHER, SELFPAY ==
[2024-08-12 09:40] VITALS: BMI 23.4
[2024-08-14 00:16] VITALS: BP 100/48; BP 102/52; BP 118/52; BP 120/50
== END 2024-09-12 23:59 ==
LOC: CR 13:00
PROVIDERS: PCP Family Medicine; Referring Provider Internal Medicine Cardiovascular Disease; Visit Provider Internal Medicine Cardiovascular Disease
DX: I25.10 Atherosclerotic heart disease of native coronary artery without angina pectoris (principal); I51.9 Heart disease, unspecified; I50.9 Heart failure, unspecified; R93.1 Abnormal findings on diagnostic imaging of heart and coronary circulation; I48.0 Paroxysmal atrial fibrillation; Z98.61 Coronary angioplasty status; I65.23 Occlusion and stenosis of bilateral carotid arteries; E78.5 Hyperlipidemia, unspecified
CPT/HCPCS: 93798

== ENCOUNTER → 2024-09-08 | Outpatient (CLI) | payer MEDICARE, OTHER, SELFPAY ==
[2024-08-12 09:40] VITALS: BMI 23.4
--- NOTE | 2024-09-08 08:45 | US_ITS ---
PROCEDURE: BREAST LIMITED UNILATERAL 09/08/2024 REASON FOR EXAM: M, Age 79 y/o , BREAST LUMP COMPARISON: Prior mammogram done earlier in the day.. TECHNIQUE: BREAST LIMITED UNILATERAL FINDINGS: Targeted sonogram of the right breast was performed. The upper-outer quadrant of the right breast was examined. There is a 1.3 cm by 1.7 cm x 0.9 cm echogenic nodular density at the 11 o'clock position of the breast at 5 cm from the nipple. This is just deep to the skin surface. This most likely represents a lipoma. No retroareolar abnormality seen. US/Breast Limited Unilateral IMPRESSION: Findings suggestive of a lipoma at 11 o'clock position of the breast at 5 cm fr om the nipple. BI-RADS 2: BENIGN RECOMMEND ANNUAL MAMMOGRAPHIC SCREENING. RECOMMENDATION: Routine annual follow-up in 1 Year Reading Location: [facility]
--- NOTE | 2024-09-08 09:00 | BI_ITS ---
EXAM: DIAG MAMM W/CAD, BILAT 09/08/2024 CLINICAL HISTORY: M, Age 79 y/o, right breast lump. History of gynecomastia. TECHNIQUE: DIAG MAMM W/CAD, BILAT. COMPARISON: Baseline examination. FINDINGS: TISSUE DENSITY: Heterogeneously dense fibroglandular tissue in the retroareolar region of the left breast. Fatty tissue in the right breast. Bilateral Breast Mammographic Findings: No significant masses, calcifications or other abnormalities are identified. BI/DIAG MAMM W/CAD, BILAT IMPRESSION: Findings suggestive of gynecomastia in the left breast. With the patient's his tory of a palpable lump in the right breast, sonographic correlation recommended. OVERALL FINAL ASSESSMENT BI-RADS 0: INCOMPLETE - NEED ADDITIONAL IMAGING EVALUATION. RECOMMENDATION: Ultrasound Recommended A letter with findings and recommendations will be mailed to the patient. Reading Location: [id number]
== END | disposition home or self-care (01) ==
LOC: OPUS 08:40
PROVIDERS: PCP Family Medicine; Referring Provider Family Medicine; Visit Provider Family Medicine
DX: N63.12 Unspecified lump in the right breast, upper inner quadrant (principal)
CPT/HCPCS: 76642; 77062; 77066; G0279

== ENCOUNTER → 2024-09-13 | Outpatient (CLI) | payer MEDICARE, OTHER, SELFPAY ==
[2024-08-12 09:40] VITALS: BMI 23.4
== END | disposition home or self-care (01) ==
LOC: PSN 12:40
PROVIDERS: PCP Family Medicine; Referring Provider Family Medicine; Visit Provider Family Medicine
DX: I48.91 Unspecified atrial fibrillation (principal)
CPT/HCPCS: 93225; 93226

== ENCOUNTER → 2024-11-03 | Outpatient (CLI) | payer MEDICARE, OTHER, SELFPAY ==
[2024-08-12 09:40] VITALS: BMI 23.4
--- NOTE | 2024-11-03 13:53 | ECHOD_ITS ---
Reason For Study Reason For Study: AFib Procedure This was a 2D Doppler, Color Flow transthoracic echocardiogram. Exam performed in department. Left Ventricle Normal LV size. The left ventricular ejection fraction is 35 %. There is moderate global hypokinesis of the left ventricle. Right Ventricle Normal RV size. Normal systolic function. Atria The left atrium is moderately enlarged. Normal right atrium. Mitral Valve There is moderate mitral annular calcification. Mild-Moderate (1-2+) eccentric mitral valve insufficiency. Tricuspid Valve Normal tricuspid valve. Mild to moderate (1-2+) tricuspid valve insufficiency. Pulmonary artery systolic pressure is 50 mmHg. Aortic Valve Trisinus/trileaflet aortic valve. Moderate focal aortic valve calcification. Peak aortic valve gradient 26 mmHg. Mean aortic valve gradient 15 mmHg. Pulmonic Valve Normal pulmonic valve. Great Vessels Normal aortic root. The pulmonary artery is normal size. Inferior vena cava collapse with respiration. Pericardium/Pleural No pericardial effusion. MMode/2D Measurements & Calculations LVIDd: 5.1 cm IVSd: 1.2 cm LVOT diam: 2.0 cm LVIDs: 3.9 cm LVPWd: 1.1 cm LVOT area: 3.2 cm2 RVDd: 4.3 cm FS: 23.3 % Ao root diam: 3.8 cm LAV(MOD-bp): 92.8 ml LVAd ap4: 36.3 cm2 LAV(MOD-bp) Indexed: 48.6 ml/m2 LVLd ap4: 8.2 cm LAV(MOD-sp2): 93.2 ml EDV(MOD-sp4): 133.2 ml LAV(MOD-sp4): 91.1 ml EDV(sp4-el): 136.1 ml LVAs ap4: 27.7 cm2 LVLs ap4: 7.4 cm ESV(MOD-sp4): 86.9 ml ESV(sp4-el): 88.7 ml EF(MOD-sp4): 34.8 % EF(sp4-el): 34.8 % SV(MOD-sp4): 46.3 ml SV(sp4-el): 47.4 ml Aortic Valve Planimetry: 0.79 cm2 SI(MOD-sp4): 24.3 ml/m2 LA A4 area: 25.9 cm2 LA dimension(2D): 5.7 cm RA A4 area: 18.7 cm2 Doppler Measurements & Calculations MV E max umm: 93.1 cm/sec MV V2 max: 107.4 cm/sec Ao V2 max: 252.3 cm/sec MV max P.6 mmHg Ao max P.6 mmHg MV V2 mean: 53.2 cm/sec Ao V2 mean: 181.5 cm/sec MV mean P.4 mmHg Ao mean P.8 mmHg MV V2 VTI: 26.1 cm Ao V2 VTI: 53.1 cm AV (velocity ratio): 0.28 MVA(VTI): 1.9 cm2 JEROMY(I,D): 0.91 cm2 JEROMY(V,D): 0.81 cm2 LV V1 max: 63.1 cm/sec MR max umm: 559.1 cm/sec SV(LVOT): 48.3 ml LV V1 max P.6 mmHg MR max P.0 mmHg LV V1 mean P.87 mmHg MR mean umm: 417.4 cm/sec LV V1 mean: 43.3 cm/sec MR mean P.6 mmHg LV V1 VTI: 14.9 cm MR VTI: 183.6 cm PA V2 max: 87.0 cm/sec TR max umm: 343.7 cm/sec TR max P.3 mmHg ECHO/Echo Complete Interpretation Summary Normal LV size. The left ventricular ejection fraction is 35 %. The left atrium is moderately enlarged. There is moderate mitral annular calcification. Mild-Moderate (1-2+) eccentric mitral valve insufficiency. Pulmonary artery systolic pressure is 50 mmHg. Mean aortic valve gradient 15 mmHg. Moderate focal aortic valve calcification. Above may represent low-flow low gradient aortic stenosis. Ordering Physician: CARMEN JEFFERS Referring Physician: CARMEN JEFFERS Performed By: Escobar Pierson RCS
== END | disposition home or self-care (01) ==
LOC: CVS 13:52
PROVIDERS: PCP Family Medicine
DX: I48.0 Paroxysmal atrial fibrillation (principal)
CPT/HCPCS: 93306

== ENCOUNTER → 2025-02-01 | Outpatient (CLI) | payer MEDICARE, OTHER, SELFPAY ==
[2024-08-12 09:40] VITALS: BMI 23.4
[2025-02-01 10:24] LABS: Hematocrit 33.8 % (40-54); Hemoglobin 11.2 g/dL (13.0-16.5); Immature Granulocytes Count 0.040 X10^3/uL (0.0-0.0); Mean Corp Hgb Conc 33.1 g/dL (32-36); Mean Corpuscular Volume 100.3 fL (80-94); Mean Platelet Vol. 10.9 fl (6.2-12.0); NRBC Flagged by Analyzer 0 % (0-5); Platelet Count 239 K/mm3 (150-450); RBC Distribution Width CV 15.3 % (11.6-14.6); RBC Distribution Width SD 55.5 fl (35.1-43.9); Red Blood Count 3.37 M/mm3 (4.6-6.2); White Blood Count 9.3 K/mm3 (4.4-11.0)
[2025-02-01 10:59] LABS: Anion Gap 10 (5-15); BUN 28 mg/dL (4-19); BUN/Creat Ratio 28.1 RATIO (10-20); Calcium,Total 9.5 mg/dL (7.6-11.0); Carbon Dioxide 24.7 mmol/L (21.0-32.0); Chloride 106 mmol/L (98-108); Glucose 104 mg/dL (70-99); Potassium 4.3 mmol/L (3.3-5.1)
== END | disposition home or self-care (01) ==
LOC: LAB 09:33
PROVIDERS: PCP Family Medicine; Referring Provider Family Medicine; Visit Provider Family Medicine
DX: D64.9 Anemia, unspecified (principal); I48.91 Unspecified atrial fibrillation; E03.9 Hypothyroidism, unspecified
CPT/HCPCS: 36415; 80048; 84443; 85025

== ENCOUNTER 2025-03-15 18:27 | Emergency (ER) | payer OTHER, SELFPAY ==
[2024-08-12 09:40] VITALS: BMI 23.4
[2025-03-15] VITALS (8 sets, daily range): BP systolic 101–138; BP diastolic 47–102; PULSE 84–94; RESP 16–17; TEMP 36.6; O2SAT 96–100; BMI 22.4
--- OUTSIDE RECORDS SUMMARY | 2025-03-15 19:32 | XMS RPT_ITS | CCD ---
Author Organization [facility] Care Team Providers Care Spanish Linguist Name Role Phone Davin KAMINSKI, Jelly Montoya Unavailable [phone] Mariaa THOMAS, Tyson Barton Unavailable [phone] Un[address] Santosh Velazquez Primary Care Provider [phone] Dr. Santosh Velazquez Referring Provider Dr. Tyson Leroy Attending Provider [phone] Dr. Fatoumata Pimentel Attending Provider [phone] Dr. Kashmir Bruno Attending Provider Dr. Santosh Velazquez Primary Care Provider Dr. Tyson Leroy Attending Provider 1(330) Dr. Santosh Velazquez Referring Provider [phone] Dr. Fatoumata Pimentel Referring Provider Dr. Santosh Velazquez Attending Provider Dr. Santosh Velazquez Primary Care Provider DAYANARA Hinds Referring Provider DAYANARA Hinds Other Provider [phone] Dr. Tyson Leroy Attending Provider [phone] DAYANARA Hinds Attending Provider Dr. Tyson Leroy Referring Provider [phone] Dr. Tyson Leroy Other Provider [phone])- Dr. Blade Dahl Attending Provider [phone])- Dr. Santosh Velazquez Primary Care Provider Dr. Santosh Velazquez Referring Provider Dr. Blade Dahl Admit Provider Dr. Blade Dahl Referring Provider 1([facility])[address] Blade Dahl Other Provider Dr. David Sherwood Attending Provider 1([facility]) [address] Dr. David Sherwood Other Provider Dr. Ching Rodríguez Other Provider Dr. Ching Rodríguez Attending Provider Dr. Colin Vance Attending Provider [phone] Dr. Santosh Velazquez Primary Care Provider 1(330 [phone] Dr. Santosh Velazquez Referring Provider 1([facility]) [phone] Dr. Blade Dahl Attending Provider 1([facility])-[address] Tyson Leroy Attending Provider [phone] Dr. Blade Dahl Referring Provider 1([facility])-[address] Blade Dahl Admit Provider Dr. Blade Dahl Other Provider Dr. Vaughn Mcpherson Attending Provider [phone] David Sherwood Attending Provider 1([facility]) [address] Dr. David Sherwood Other Provider 1([facility])-[address] Tyson Leroy Other Provider [phone] Ching Rodríguez Other Provider Dr. Ching Rodríguez Attending Provider Dr. Tyson Leroy Referring Provider [phone] Dr. Cloin Vance Attending Provider [phone] Yoly WELDER MANUFACTURE, WELDER MANUFACTURE-C Patel Attending Provider [phone] Andi WELDER MANUFACTURE, WELDER MANUFACTURE-C Fabiola Attending Provider Dr. Fatoumata Pimentel Attending Provider Dr. Santosh Velazquez Primary Care Provider [phone] Dr. Blade Dahl Attending Provider [phone] Dr. Blade Dahl Referring Provider [phone] Dr. Tyson Leroy Attending Provider 1(330) Dr. Santosh Velazquez Referring Provider [phone] Dr. Santosh Velazquez Attending Provider Dr. Santosh Velazquez Primary Care Provider [phone] [phone] Dr. Santosh Velazquez Referring Provider Dr. Blade Dahl Attending Provider [phone] Dr. Santosh Velazquez Primary Care Provider 1(330 ) Dr. Santosh Velazquez Referring Provider Andi WELDER MANUFACTURE, WELDER MANUFACTURE-C Fabiola Attending Provider Dr. Tyson Leroy Attending Provider 1(330) Dr. Colin Vance Attending Provider 1([phone] Dr. Colin Vance Referring Provider 1([phone] 12) Dr. Santosh Velazquez Primary Care Provider 1(330 ) Dr. Santosh Velazquez Referring Provider Dr. Brendan Lloyd Attending Provider [phone] Dr. Santosh Velazquez Primary Care Provider 1(330 ) Dr. Santosh Velazquez Referring Provider [phone] Andi WELDER MANUFACTURE, WELDER MANUFACTURE-C Fabiola Attending Provider Dr. Santosh Velazquez Attending Provider [phone] Dr. Colin Vance Attending Provider 1( 30) Dr. Colin Vance Referring Provider [phone] Dr. Tyson Leroy Attending Provider [phone] Dr. Brendan Lloyd Attending Provider [phone] Andi WELDER MANUFACTURE, WELDER MANUFACTURE-C Fabiola Other Provider 1(330) Dr. Felipe Velazquez Attending Provider Kashmir Bruno MD Unavailable Gunnar DOSantosh R Unavailable Tyson Leroy Unavailable Gunnar DOSantosh R Unavailable Santosh Velazquez DO Primary Care Provider Fatoumata Pimentel MD(Historical) Unavailable Un available ARABELLA HAMILTON Attending Unavailable SANTOSH VELAZQUEZ Referring Unavailable SANTOSH VELAZQUEZ Primary Care Unavailable Dr. Santosh Velazquez Primary Care Provider [phone] Dr. Santosh Velazquez Attending Provider Dr. Santosh Velazquez Referring Provider Andi WELDER MANUFACTURE, WELDER MANUFACTURE-C Fabiola Attending Provider Caryn NICHOLE PA Kayla Attending Provider [phone] Dr. Blade Dahl Attending Provider [phone] DAYANARA Gallo Referring Provider [phone] Dr. Santosh Velazquez Primary Care Provider 1(330 ) Dr. Santosh Velazquez Referring Provider [phone] Andi WELDER MANUFACTURE, WELDER MANUFACTURE-C Fabiola Attending Provider Andi WELDER MANUFACTURE, WELDER MANUFACTURE-C Fabiola Referring Provider DAYANARA Rubin Attending Provider DAYANARA Rubin Referring Provider Dr. Santosh Velazquez Attending Provider Dr. Brendan Lloyd Attending Provider Dr. Santosh Velazquez Primary Care Provider [phone] Dr. Santosh Velazquez Referring Provider DAYANARA Rubin Attending Provider Dr. Blade Dahl Attending Provider [phone] DAYANARA Bar Attending Provider [phone] Santosh Velazquez Primary Care Provider [phone] Dr. Santosh Velazquez Referring Provider DAYANARA Bar Attending Provider 1([facility])-57 10 Gabino, Dr. Cardona Attending Provider Gabino, Dr. Cardona Referring Provider Gabino, Dr. Cardona Other Provider Dr. Felipe Velazquez Attending Provider 1([facility])[address] Dr. Nazario Colby Attending Provider Dr. Jam Cohen Referring Provider 1([facility] )[phone] Dr. Blade Dahl Attending Provider 1([facility])- 10 DAYANARA Bar Referring Provider 1([facility])- 10 Dr. Santosh Velazquez Primary Care Provider 1([facility] ) Dr. Santosh Velazquez Referring Provider 1([facility])[phone] DAYANARA Bar Attending Provider 1([facility])- 10 Gabino, Dr. Cardona Attending Provider [phone] Gabino, Dr. Cardona Referring Provider Gabino, Dr. Cardona Other Provider Dr. Felipe Velazquez Attending Provider 1([facility])[phone] Dr. Nazario Colby Attending Provider 1([facility])[phone] Jam Cohen Referring Provider 1([facility] )[phone] Dr. Blade Dahl Attending Provider 1([facility]) 10 DAYANARA Bar Referring Provider 1([facility])- 10 Dr. Santosh Velazquez Primary Care Provider 1([facility] ) Dr. Santosh Velazquez Referring Provider 1([facility])[phone] Dr. Nazario Colby Referring Provider Dr. Santosh Velazquez Primary Care Provider [phone] Dr. Blade Dahl Attending Provider 1([facility])- 10 Dr. Blade Dahl Referring Provider 1([facility]) 10 Dr. Santosh Velazquez DO Primary Care Provider Dr. Santosh Velazquez DO Referring Provider Dr. Nazario Colby DO Attending Provider Kayla Vera Attending Provider Amish THOMAS, Dr. Carroll Attending Provider Amish THOMAS, Dr. Carroll Referring Provider Nory GARRETT, Dr. Galindo Emergency Provider Shauna THOMAS, Dr. Luba Montoya Admit Provider Shauna THOMAS, Dr. Luba Montoya Other Provider Pinky THOMAS, Dr. Shaw Other Provider Dr. Patel Westbrook DO Attending Provider Adriana GARRETT, Dr. Murguia Other Provider Adriana GARRETT, Dr. Murguia Attending Provider Pinky THOMAS, Dr. Shaw Attending Provider Pietro GARRETT, Dr. Sweeney Other Provider Gabino THOMAS, Dr. Cardona Attending Provider Elliott GARRETT, Dr. Red Attending Provider Elliott GARRETT, Dr. Red Emergency Provider Noel THOMAS, Dr. Jam Pappas Attending Provider [phone] Noel THOMAS, Dr. Jam Pappas Referring Provider [phone] [facility] WELDER MANUFACTURE-Bud Ashley Attending Provider Dr. Santosh Velazquez DO Attending Provider Gabino THOMAS, Dr. Cardona Referring Provider Jelly Hinds Attending Provider Jelly Hinds Referring Provider Dr. Blade Dahl MD Attending Provider Dr. Santosh Velazquez DO Primary Care Provider Dr. Santosh Velazquez DO Referring Provider [phone] Vida THOMAS, Dr. Mendse Attending Provider [phone] Vida THOMAS, Dr. Mendes Referring Provider [phone] Vida THOMAS, Dr. Mendes Other Provider Gunnar GARRETT, Dr. Wang Attending Provider 1([facility])[phone] Dr. Santosh Velazquez DO Primary Care Provider Dr. Santosh Velazquez DO Referring Provider 1([facility] )[phone] Pinky THOMAS, Dr. Shaw Attending Provider Pietro GARRETT, Dr. Sweeney Other Provider 1([facility])[phone] Dr. Santosh Velazquez DO Primary Care Provider [phone] Dr. Nazario Colby DO Attending Provider 1([facility])[phone] Santosh Velazquez Primary Care Provider 1([facility])347 Dr. Santosh Velazquez DO Primary Care Provider Dr. Santosh Velazquez DO Referring Provider 1([facility] )[phone] Gabino THOMAS, Dr. Cardona Attending Provider [facility] AYDEN-Bud Ashley Attending Provider 1([facility])[phone] Noel THOMAS, Dr. Jam Pappas Attending Provider Dr. Jam Cohen MD Referring Provider Dr. Santosh Velazquez DO Primary Care Provider Dr. Santosh Velazquez DO Referring Provider [phone] Dr. Santosh Velazquez DO Attending Provider [phone] Dr. Santosh Velazquez DO Primary Care Provider Dr. Brendan Lloyd MD Attending Provider Dr. Brendan Lloyd MD Referring Provider Dr. Santosh Velazquez DO Primary Care Provider Jelly Hinds Attending Provider Jelly Hinds Referring Provider [phone] Dr. Blade Dahl MD Attending Provider Gabino THOMAS, Dr. Cardona Attending Provider Gabino THOMAS, Dr. Cardona Referring Provider Dr. Nazario Colby DO Referring Provider Dr. Santosh Velazquez DO Primary Care Provider Gunnar GARRETT, Dr. Santosh Arteaga Referring Provider [phone] Vida THOMAS, Dr. Mendes Attending Provider [phone] [facility] AYDEN-CBud Attending Provider LESLI JEFFERS Attending Provider LESLI JEFFERS Referring Provider Gunnar GARRETT, Dr. Santosh Arteaga Primary Care Provider Gabino THOMAS, Dr. Cardona Attending Provider Gabino THOMAS, Dr. Cardona Referring Provider Gunnar GARRETT, Dr. Santosh Arteaga Referring Provider [phone] Vida THOMAS, Dr. Mendes Attending Provider [phone] [facility] AYDEN-C, Bud Referring Provider Kayla Vera Attending Provider Gay Norwood RN Unavailable Unavailable Jelly Hinds Referring Unavail able Blade Dahl Attending Unavailable Brown, Santosh R Primary Care Unavailable Colin Vance Consulting Unavailabl e Brown, Santosh R Primary Care Unavailable Luba Villatoro Admitting Unavailable Patel Westbrook Attending Unavailable Luba Villatoro Consulting Unavailable Blade Wright Consulting Unavailable Brown, Santosh R Primary Care Unavailable Brown, Santosh R Attending Unavailable Brown, Santosh R Primary Care Unavailable Vaughn Mcpherson Attending Unavailable Jelly Hinds Referring Unavail able Jelly Hinds Attending Unavail able Brown, Santosh R Primary Care Unavailable Blade Dahl Attending Unavailable Jelly Hinds Referring Unavail able Brown, Santosh R Primary Care Unavailable Brendan Lloyd Attending Unavailable Brown, Santosh R Primary Care Unavailable Brown, Santosh R Primary Care Unavailable DMITRIY, MA1 Referring Unavailable DMITRIY, ANTOINE1 Attending Unavailable NoelJam kingston Attending Unavailable Brown, Santosh R Primary Care Unavailable Jam Cohen Referring Unavailable Teofilo Gallagher Attending Unavailable Brown, Santosh R Primary Care Unavailable Vida, [place] Attending Unavailable Brown, Santosh R Primary Care Unavailable Vida, Vaughn Referring Unavailable Jelly Hinds Referring Unavail able Jelly Hinds Attending Unavail able Brown, Santosh R Primary Care Unavailable Gabino, Brendan Attending Unavailable Gabino, Brendan Referring Unavailable Brown, Santosh R Primary Care Unavailable Brown, Santosh R Attending Unavailable Brown, Santosh R Primary Care Unavailable Brown, Santosh R Referring Unavailable Brown, Santosh R Primary Care Unavailable Gabino, Brendan Referring Unavailable Gabino, Brendan Attending Unavailable Brown, Santosh R Primary Care Unavailable Roof WELDER MANUFACTURE, Bud Polk Referring Unavailable Roof WELDER MANUFACTURE, Bud Polk Attending Unavailable Brown, Santosh R Primary Care Unavailable Nazario Colby Referring Unavailable Nazario Colby Attending Unavailable Gabino, Brendan Referring Unavailable Gabino, Brendan Attending Unavailable Brown, Santosh R Primary Care Unavailable Brown, Santosh R Primary Care Unavailable Jam Cohen Attending Unavailable NoelJam Referring Unavailable Brown, Santosh R Primary Care Unavailable Vida, [place] Attending Unavailable Brown, Santosh R Referring Unavailable Vida, [place] Consulting Unavailable Vida, Vaughn Attending Unavailable Vida, [place] Referring Unavailable Brown, Santosh R Primary Care Unavailable Vida, Vaughn Consulting Unavailable Vida, Vaughn Referring Unavailable Felipe Velazquez Attending Unavailable Brown, Santosh R Primary Care Unavailable Colin Vance Attending Unavailabl e Brown, Santosh R Primary Care Unavailable Brown, Santosh R Referring Unavailable Gabino, Brendan Attending Unavailable Brown, Santosh R Primary Care Unavailable Gabino, Brendan Attending Unavailable Brown, Santosh R Primary Care Unavailable Brown, Santosh R Referring Unavailable Roof WELDER MANUFACTURE, Bud Polk Attending Unavailable Brown, Santosh R Primary Care Unavailable Brown, Santosh R Attending Unavailable Brown, Santosh R Referring Unavailable Brown, Santosh R Primary Care Unavailable Brown, Santosh R Attending Unavailable Brown, Santosh R Referring Unavailable Brown, Santosh R Primary Care Unavailable Brown, Santosh R Referring Unavailable Brown, Santosh R Primary Care Unavailable Nazario Colby Attending Unavailable Vaughn Mcpherson Attending Unavailable Brown, Santosh R Referring Unavailable Brown, Santosh R Primary Care Unavailable Brown, Santosh R Primary Care Unavailable Roof WELDER MANUFACTURE, Bud Polk Attending Unavailable Brown, Santosh R Referring Unavailable Brown, Santosh R Primary Care Unavailable Nazario Colby Attending Unavailable Brown, Santosh R Referring Unavailable Brown, Santosh R Attending Unavailable Brown, Santosh R Primary Care Unavailable Brown, Santosh R Referring Unavailable Colin Vance Consulting Unavailabl e Brown, Santosh R Primary Care Unavailable Luba Villatoro Admitting Unavailable Patel Westbrook Attending Unavailable Luba Villatoro Consulting Unavailable Blade Wright Consulting Unavailable Patel Westbrook Consulting Unavailable Luba Villatoro Attending Unavailable Blade Wright Attending Unavailable Colin Vance Attending Unavailabl e Brown, Santosh R Referring Unavailable Brown, Santosh R Primary Care Unavailable Nazario Colby Attending Unavailable Brown, Santosh R Referring Unavailable Brown, Santosh R Primary Care Unavailable Kayla Bar Attending Unavailable Brown, Santosh R Referring Unavailable Brown, Santosh R Primary Care Unavailable Roof WELDER MANUFACTURE, Bud Polk Attending Unavailable Kayla Bar Attending Unavailable Brown, Santosh R Referring Unavailable Brown, Santosh R Primary Care Unavailable Brown, Santosh R Referring Unavailable Brown, Santosh R Primary Care Unavailable Nazario Colby Attending Unavailable Brown, Santosh R Referring Unavailable Roof WELDER MANUFACTURE, Bud Polk Attending Unavailable Brown, Santosh R Primary Care Unavailable Gabino, Brendan Referring Unavailable Gabino, Brendan Attending Unavailable Brown, Santosh R Primary Care Unavailable Brown, Santosh R Primary Care Unavailable Jelly Hinds Attending Unavail able Jelly Hinds Referring Unavail able Brown, Santosh R Attending Unavailable Brown, Santosh R Primary Care Unavailable Brown, Santosh R Referring Unavailable Brown, Santosh R Primary Care Unavailable Glen Wellington Referring Unavailable Glen Wellington Attending Unavailable Jelly Hinds Referring Unavail able Brown, Santosh R Primary Care Unavailable Jelly Hinds Attending Unavail able Brown, Santosh R Primary Care Unavailable Gabino, Brendan Referring Unavailable Gabino, Brendan Attending Unavailable Gabino, Brendan Attending Unavailable Gabino, Brendan Referring Unavailable Brown, Santosh R Primary Care Unavailable RONNIE TROY Attending Unavailable SANTOSH VELAZQUEZ Primary Care Unavailable RONNIE TROY Attending Unavailable SANTOSH VELAZQUEZ Primary Care Unavailable RONNIE TROY Attending Unavailable SANTOSH VELAZQUEZ Primary Care Unavailable ULISES PERDOMO Admitting Unavailable ULISES PERDOMO Attending Unavailable SANTOSH VELAZQUEZ Primary Care Unavailable Allergies Allergy Classification Reported Allergen(s) Allergy Type Date of Onset Reaction(s) Facility (8 sources) Bee pollen; Translations: [BEE POLLEN] Drug Allergy 9 Mental Status Change [facility] (20 sources) bee venom protein (honey bee) Allergy to substance 2 Anaphylaxis [facility] (20 sources) WASP VENOM PROTEIN Drug Allergy 3 Anaphylaxis [facility] (10 sources) bee venom Propensity to adverse reactions 5 Anaphylaxis [facility] (1 source) venom-wasp protein Drug allergy (disorder) 5 [facility] (1 source) bee venom protein (honey bee) Drug allergy (disorder) 5 [facility] Medications Current Medications Medication Drug Class(es) Dates Sig (Normalized) Sig (Original) [id number] 200 actuat albuterol 0.09 mg/actuat metered dose inhaler (20 sources) beta2-Adrenergic Agonist Start: 07-20-2017 Albuterol Sulfate (Proair Hfa) 90 mcg/actuation HFA aerosol inhaler Active 2 NMA INHALATION EVERY 6 HOURS as needed for Wheezing July 20, 2017 12:00am Start: 07-20-2017 take 1 puff(s) by in halation every six hours Albuterol Sulfate (Proair Hfa) 90 mcg/actuation HFA aerosol inhaler Active 2 PUFF INHALATION EVERY 6 HOURS July 20, 2017 12:00am take 2 puff(s) by in halation every four hours as needed albuterol 108 (90 Base) MCG/ACT inhaler Inhale 2 puffs every 4 hours as needed. Active Comment on above: Inhale 2 Puffs as in structed every 4 hours as needed. apixaban 5 mg oral tablet (20 sources) Factor Xa Inhibitor Start: 04-07-2023 take 1 tablet by mouth once daily Apixaban (Eliquis) 5 mg tablet Active 5 MG PO DAILY April 07, 2023 3:11pm Start: 11-17-2021 End: 12-19-2024 take 1 tablet by mouth twice daily apixaban (Eliquis) 5 MG tablet Take 1 tablet (5 mg) by mouth 2 times daily. RESUME Thu12/19/2024 Active atorvastatin 40 mg oral tablet (20 sources) HMG-CoA Reductase Inhibitor Start: 09-29-2023 End: 09-12-2024 take 1 tablet by mouth at bedtime Atorvastatin 40 mg tablet Active 40 mg PO AT BEDTIME 90 3 September 12, 2024 12:29pm Start: 05-26-2023 End: 09-29-2023 take 3 tablets by mouth at bedtime Atorvastatin 20 mg tablet Discontinued 60 mg PO AT BEDTIME 90 May 26, 2023 12:00am September 29, 2023 3:06pm Start: 03-27-2023 End: 05-26-2023 take 1 tablet by mouth once daily at bedtime for hyperlipidemia Atorvastatin Discontinued 60 MG PO AT BEDTIME May 12, 2023 1:00am May 26, 2023 11:41am TAKE 1 TABLET BY MOUTH EVERY DAY FOR CHOLESTEROL Start: 09-29-2018 End: 05-26-2023 take 1 tablet by mouth once daily for hyperlipidemia Atorvastatin 20 mg tablet Discontinued 0 .ROUTE .COMPLEX 90 March 27, 2023 1:51pm May 12, 2023 12:21pm TAKE 1 TABLET BY MOUTH EVERY DAY FOR CHOLESTEROL Start: 06-13-2010 End: 09-29-2018 take 1 tablet by mouth once daily Atorvastatin 40 mg t ablet Discontinued 40 mg PO daily 90 June 30, 2018 8:40am September 29, 2018 9:26am Start: 06-13-2010 take 1 tablet by mouth once da olaf LIPITOR 80 MG TABS One tablet by mouth daily ATORVASTATIN CALCIUM [id number] Tyson Leroy MD Comment on above: Take 40 mg by mouth once daily. cholecalciferol 0.025 mg oral capsule (20 sources) Vitamin D Start: 04-01-19 take 3 capsules by mouth once daily Cholecalciferol (Vitamin D3) 1,000 unit capsule Active 3000 U PO DAILY April 01, 2018 1:00am VITAMIN take 1 capsule by mouth once mignon ly cholecalciferol (Vitamin D-3) 25 MCG (1000 UT) capsule Take 1,000 Units by mouth daily. Active clopidogrel 75 mg oral tablet (20 sources) [id number] Platelet Inhibitor Start: 06-13-2010 take 1 tablet by mouth once daily Clopidogrel (Plavix) 75 mg tablet Active 75 mg PO daily May 22, 2017 1:00am CLOTTING Comment on above: Take 75 mg by mouth once daily. dapagliflozin 10 mg oral tablet (9 sources) Sodium-Glucose Cotransporter 2 Inhibitor Start: 11-15-2024 End: 11-15-2025 take 1 tablet by mouth once daily dapagliflozin (Farxiga) 10 MG tablet Take 1 tablet (10 mg) by mouth daily. 30 tablet 11 11/15/2024 11/15/2025 Active digoxin 0.125 mg oral tablet (20 sources) Cardiac Glycoside Start: 04-13-2024 End: 05-03-2024 take 1 tablet by mouth once daily Digoxin (Lanoxin) 125 mcg (0.125 mg) tablet Active 125 ug PO DAILY 90 2 May 03, 2024 10:52am 24 hr dilTIAZem hydrochloride 180 mg extended release oral capsule (20 sources) Calcium Channel Rita Start: 08-16-2024 End: 08-16-2025 take 1 capsule by mouth once daily Diltiazem Hcl 180 mg capsule,extended release 24hr Active 180 mg PO daily November 10, 2024 12:00am Start: 06-23-2024 End: 11-10-2024 take 1 capsule by mouth once daily in the morning Diltiazem Hcl 120 mg capsule,extended release 24hr Discontinued 120 mg PO EVERY MORNING 30 11 June 23, 2024 12:00am November 10, 2024 11:15am furosemide 40 mg oral tablet (20 sources) Loop Diuretic Start: 06-30-2024 take 1 tablet by mouth once daily Furosemide 40 mg tablet Active 40 mg PO DAILY 90 3 June 30, 2024 9:30am EDEMA Start: 06-30-2024 End: 06-30-2024 take 2 tablets by mouth once daily Furosemide 20 mg tablet Discontinued 40 mg PO DAILY June 30, 2024 9:03am June 30, 2024 9:31am EDEMA Start: 04-14-2023 End: 06-30-2024 take 1 tablet by mouth once daily Furosemide 20 mg tablet Discontinued 20 mg PO DAILY 90 3 August 11, 2023 2:34pm June 30, 2024 9:04am EDEMA Start: 09-09-2022 End: 04-07-2023 take 1 tablet by mouth once daily Furosemide (Lasix) 20 mg tablet Discontinued 20 mg PO DAILY 12 02October 02, 2022 1:50pm April 07, 2023 4:13pm Handicap placard (19 sources) Start: 08-12-[address] Active 0 .Route .MEDSUPPLY 1 0 August 12, 2023 12:00am Duration 5 years, Diagnosis CAD, Prostate CA Start: 08-12-[address] Active 0 .Route .MEDSUPPLY 1 August 12, 2023 12:00am Duration 5 years, Diagnosis CAD, Prostate CA levothyroxine sodium 0.075 mg oral capsule (20 sources) l-Thyroxine Start: 04-14-2023 take 1 capsule by mouth once daily Levothyroxine 75 mcg capsule Active 75 ug PO DAILY April 14, 2023 1:00am HYPOTHYROID Start: 09-09-2022 End: 04-07-2023 take 1 capsule by mouth once daily Levothyroxine 75 mcg capsule Discontinued 75 ug PO DAILY September 09, 2022 12:00am April 07, 2023 4:13pm Start: 02-28-2022 End: 09-09-2022 take 1 tablet by mouth once daily Levothyroxine (Synthroid) 50 mcg tablet Discontinued 50 ug PO DAILY February 28, 2022 1:00am September 09, 2022 1:19pm take 1 tablet by rowena th once daily before breakfast levothyroxine (Synthroid, Levoxyl) 75 MCG tablet Take 75 mcg by mouth every morning (before breakfast). Active lisinopril 10 mg oral tablet (20 sources) Angiotensin Converting Enzyme Inhibitor Start: 11-15-2024 End: 11-15-2025 take 1 tablet by mouth once daily lisinopril 10 MG tablet Take 1 tablet (10 mg) by mouth daily. 30 tablet 11 11/15/2024 11/15/2025 Active Start: 04-13-2024 End: 11-15-2024 take 1 tablet by mouth once daily Lisinopril 2.5 mg tablet Discontinued 2.5 mg PO DAILY May 03, 2024 10:52am November 15, 2024 3:40pm Start: 09-29-2023 End: 04-13-2024 take 1 tablet by mouth twice daily Lisinopril 20 mg tablet Discontinued 20 mg PO TWICE A DAY 180 3 March 17, 2024 11:49am April 13, 2024 2:26pm Start: 04-07-2023 End: 09-29-2023 Lisinopril 30 mg tablet Disc ontinued 20 mg PO TWICE A DAY April 07, 2023 1:00am September 29, 2023 2:46pm Start: 04-07-2023 take 20 mg by mouth twice zeinab y Lisinopril Active 20 MG PO TWICE A DAY April 07, 2023 1:00am Start: 04-07-2023 take 30 mg by mouth once daily Lisinopril Active 30 MG PO DAILY April 07, 2023 12:00am Start: 03-13-2022 End: 04-07-2023 take 1 tablet by mouth twice daily Lisinopril 20 mg tablet Discontinued 0 .ROUTE .COMPLEX 180 March 27, 2023 1:51pm April 07, 2023 4:12pm TAKE 1 TABLET BY MOUTH TWICE A DAY Start: 12-18-2021 End: 03-13-2022 take 1 tablet by mouth once daily Lisinopril 30 mg tablet Discontinued 30 mg PO daily 90 3 January 10, 2022 4:00pm March 13, 2022 6:38pm HYPERTENSION Start: 04-26-2018 End: 12-18-2021 take 1 tablet by mouth once daily Lisinopril 20 mg tablet Discontinued 20 mg PO daily 90 3 April 16, 2021 12:44pm November 11, 2021 9:58am Start: 05-08-2017 End: 05-24-2018 take 1 tablet by mouth once daily Lisinopril 10 mg tablet Discontinued 10 mg PO daily 90 3 April 26, 2018 5:49pm May 24, 2018 3:35pm Start: 09-06-2010 take 1 tablet by rowena th once daily LISINOPRIL 10 MG TABS One tablet by mouth daily LISINOPRIL [id number] Tyson Leroy MD Comment on above: Take 20 mg by mouth once daily. Multiple Vitamins-Minerals (ICAPS AREDS FORMULA PO) (11 sources) Multiple Vitamins-Minerals (ICAPS AREDS FORMULA PO) Take by mouth. Active NIFEdipine 90 mg osmotic 24 hr extended release oral tablet (20 sources) Dihydropyridine Calcium Channel Rita Start: take 1 tablet by mouth once daily Nifedipine 90 mg tablet extended release 24hr Active 90 mg PO daily November 10, 2024 12:00am blood pressure Start: 09-29-2023 End: 06-23-2024 take 1 tablet by mouth once daily Nifedipine 90 mg tablet extended release 24hr Discontinued 90 mg PO daily March 17, 2024 12:07pm June 23, 2024 5:27pm HYPERTENSION Start: 04-14-2023 End: 09-29-2023 take 1 tablet by mouth once daily Nifedipine 60 mg tablet extended release Discontinued 60 mg PO DAILY April 14, 2023 1:00am September 29, 2023 2:46pm Start: 03-24-2023 End: 04-07-2023 take 1 tablet by mouth once daily Nifedipine 90 mg tablet extended release 24hr Discontinued 90 mg PO DAILY March 24, 2023 1:00am April 07, 2023 4:13pm Start: 09-09-2022 End: 03-24-2023 take 1 tablet by mouth once daily Nifedipine (Procardia Xl) 60 mg tablet extended release 24hr Discontinued 60 mg PO DAILY 12 02October 02, 2022 1:50pm March 24, 2023 3:30pm pantoprazole 40 mg delayed release oral tablet (20 sources) Proton Pump Inhibitor Start: 05-19-[address] (PROTONIX) 40 mg tablet q 24 HR. 0 05/19/2016 Active Start: 05-19-2016 take 1 tablet by rowena once daily Pantoprazole 40 mg tablet,delayed release (DR/EC) Active 40 mg PO daily May 22, 2017 1:00am GERD Comment on above: q 24 HR. potassium chloride 10 meq extended release oral tablet (20 sources) Start: 08-11-2023 End: 09-12-2024 take 1 tablet by mouth once daily Potassium Chloride 10 mEq tablet extended release Active 10 meq PO DAILY 90 September 12, 2024 12:29pm Start: 04-14-2023 End: 08-11-2023 take 1 capsule by mouth once daily Potassium Chloride 10 mEq capsule, extended release Discontinued 10 meq PO DAILY April 14, 2023 1:00am August 11, 2023 2:35pm Start: 09-09-2022 End: 04-07-2023 take 1 tablet by mouth once daily Potassium Chloride 10 mEq tablet extended release Discontinued 10 meq PO DAILY 12 02October 02, 2022 1:50pm April 07, 2023 4:14pm potassium chlori de CR (Klor-Con M10) 10 MEQ ER tablet Take 10 mEq by mouth daily. Do not crush or chew. Active spironolactone 25 mg oral tablet (9 sources) Aldosterone Antagonist Start: 11-15-2024 End: 11-15-2025 take 1 tablet by mouth once daily spironolactone (Aldactone) 25 MG tablet Take 1 tablet (25 mg) by mouth daily. 30 tablet 11/15/2024 11/15/2025 Active 60 actuat tiotropium 0.0025 mg/actuat inhalation spray (20 sources) Anticholinergic Start: 01-23-2021 take 2.5 ug by inhalation once daily in the morning Tiotropium Iona (Spiriva Respimat) 2.5 mcg/actuation mist Active 2 NMA INHALATION EVERY MORNING January 23, 2021 1:00am COPD take 2 puff(s) by inhalation onc e daily tiotropium (Spiriva Respimat) 2.5 MCG/ACT inhaler Inhale 2 puffs daily. Active tiotropium bromi de (SPIRIVA RESPIMAT INHALATION) Inhale as instructed once daily. 0 Active Comment on above: Inhale as instructed once daily. Vit C,Y-Bg-Xbogp-Lutei n-Zeaxan (Preservision Areds-2) 250-90-40-1 mg capsule (14 sources) Start: 06-30-2024 take 2 capsules by mouth twice daily Vit C,K-Cz-Jnwsc-Lute in-Zeaxan (Preservision Areds-2) 250-90-40-1 mg capsule Active 1 {tbl} PO TWICE A DAY June 30, 2024 12:00am Completed/Discontinued Medications Medication Drug Class(es) Dates Sig (Normalized) Sig (Original) acetaminophen 325 mg oral tablet (2 sources) Start: 12-19-2024 End: 12-19-2024 take 1 tablet by mouth every four hours as needed for pain 650 mg, Oral, Every 4 hours PRN, mild pain (1-3), Fever > 100.5 F (38 C), Starting on 12/19/24 at 0906, [facility], Maximum dose of acetaminophen is 4000 mg from all sources in 24 hours. allopurinol 300 mg oral tablet (20 sources) Xanthine Oxidase Inhibitor Start: 06-13-2010 End: 08-23-2024 take 1 tablet by mouth once daily Allopurinol 300 mg tablet Discontinued 300 mg PO daily 90 1 February 23, 2024 9:22am August 23, 2024 8:43am GOUT Comment on above: allopurinol ALLOPURI NOL 300 MG TABS One tablet by mouth daily ALLOPURINOL [id number] Shazia Perez RN 06-13-2010 [facility] ([id number]) amiodarone hydrochloride 200 mg oral tablet (20 sources) Antiarrhythmic Start: 04-04-2022 End: 03-30-2023 Amiodarone 200 mg tablet Discontinued 100 mg PO DAILY 45 3 March 27, 2023 4:16pm March 30, 2023 10:14am Start: 04-04-2022 End: 03-30-2023 take 100 mg by mouth once daily Amiodarone Discontinue d 100 MG PO DAILY 45 March 27, 2023 4:16pm March 30, 2023 10:14am Start: 02-28-2022 End: 04-04-2022 take 1 tablet by mouth once daily Amiodarone 200 mg tablet Discontinued 200 mg PO DAILY February 28, 2022 11:31am April 04, 2022 3:21pm Start: 11-17-2021 End: 11-21-2021 take 1 tablet by mouth once daily Amiodarone 200 mg Tablet Discontinued 200 mg PO DAILY 30 30 0 November 17, 2021 12:00am November 21, 2021 9:21am from 11/29/21 morning Start: 11-17-2021 End: 11-21-2021 take 1 tablet by mouth three times daily Amiodarone 200 mg Tablet Discontinued 200 mg PO THREE TIMES A DAY 15 5 0 November 17, 2021 12:00am November 21, 2021 12:00am November 21, 2021 9:18am last dose 11/21/21 morning Start: 11-17-2021 End: 02-28-2022 Amiodarone 200 mg tablet Discontinued 200 mg PO .COMPLEX 104 3 November 21, 2021 9:19am February 28, 2022 11:31am 200 mg orally twice a day starting 11/21/21 for 7 days then once a day; from 11/29/21 morning amLODIPine 5 mg oral tablet (20 sources) Dihydropyridine Calcium Channel Rita Start: 09-09-2022 End: 09-09-2022 take 2 tablets by mouth once daily Amlodipine 5 mg tablet Discontinued 10 mg PO DAILY September 09, 2022 1:18pm September 09, 2022 1:40pm Start: 09-09-2022 End: 09-09-2022 take 10 mg by mouth once daily Amlodipine Discontinued 10 MG PO DAILY September 09, 2022 1:18pm September 09, 2022 1:40pm Start: 09-09-2022 End: 09-09-2022 take 1 tablet by mouth once daily Amlodipine 10 mg tablet Discontinued 10 mg PO DAILY September 09, 2022 12:00am September 09, 2022 1:40pm Start: 08-07-2022 End: 09-09-2022 take 1 tablet by mouth once daily Amlodipine 5 mg tablet Discontinued 5 mg PO DAILY 90 August 07, 2022 11:13am September 09, 2022 1:20pm Start: 04-04-2022 End: 08-07-2022 take 1 tablet by mouth once daily Amlodipine 10 mg tablet Discontinued 10 mg PO DAILY 30 April 28, 2022 4:02pm August 07, 2022 11:13am Start: 02-28-2022 End: 04-04-2022 take 1 tablet by mouth once daily Amlodipine 5 mg tablet Discontinued 5 mg PO DAILY 30 March 24, 2022 4:00pm April 04, 2022 3:21pm aspirin 81 mg delayed release oral tablet (20 sources) Nonsteroidal Anti-inflammatory Drug Start: 05-12-2023 End: 08-12-2023 Aspirin (Jas Low Dose Aspirin) 81 mg tablet,delayed release (DR/EC) Discontinued 81 mg PO DAILY 90 June 22, 2023 2:21pm August 12, 2023 10:18am Start: 03-21-2022 End: 09-10-2022 take 1 tablet by mouth at breakfast Aspirin 81 mg tablet,chewable Discontinued 81 mg PO WITH BREAKFAST 90 3 May 09, 2022 11:07am September 10, 2022 10:02am Start: 06-13-2010 End: 11-17-2021 take 1 tablet by mouth once daily Aspirin (Ecotrin) 325 mg tablet,delayed release (DR/EC) Discontinued 325 mg PO daily May 22, 2017 1:00am November 17, 2021 12:22pm CLOTTING Start: 06-13-2010 take 1 tablet by rowena once daily ECOTRIN 325 MG TBEC One tablet by mouth daily ASPIRIN [id number] Shazia Perez RN Comment on above: aspirin ECOTRIN 325 MG TBEC One tablet by mouth daily ASPIRIN [id number] Shazia Perez RN 06-13-2010 [facility] ([id number]) calcium chloride 0.0014 meq/ml / potassium chloride 0.004 meq/ml / sodium chloride 0.103 meq/ml / sodium lactate 0.028 meq/ml injectable solution (2 sources) Start: 2024 End: 2024 take 125 mL intravenously every hour 125 mL/hr, IntraVENous, Continuous, Starting on Thu12/19/24 at 0915, Recovery (only) cilostazol 50 mg oral tablet (20 sources) Phosphodiesterase 3 Inhibitor Start: 2022 End: 2023 take 1 tablet by mouth twice daily Cilostazol 50 mg tablet Discontinued 0 .ROUTE .COMPLEX 60 2 August 12, 2022 9:57am September 09, 2022 1:20pm TAKE 1 TABLET BY MOUTH TWICE A DAY ciprofloxacin 500 mg oral tablet (20 sources) Quinolone Antimicrobial Start: 2023 End: 2023 take 1 tablet by mouth twice daily Ciprofloxacin Hcl (Cipro) 500 mg tablet Discontinued 500 mg PO TWICE A DAY 10 May 20, 2023 1:00am August 12, 2023 10:13am ferrous sulfate 325 mg oral tablet (20 sources) Start: 2023 End: 2024 take 1 tablet by mouth twice daily Ferrous Sulfate 325 mg (65 mg iron) tablet Discontinued 325 mg PO TWICE A DAY 180 June 14, 2024 9:16am August 31, 2024 10:20am take 1 tablet by mouth twice mignon ly ferrous sulfate 325 (65 Fe) MG EC tablet Take 325 mg by mouth 2 times daily. Do not crush, chew, or split. Active Flaxseed extract (20 sources) Non-Standardized Food Allergenic Extract, Non-Standardized Plant Allergenic Extract Start: 04-24-2020 End: 06-25-2020 flax seed Discontinued PO April 24, 2020 10:43am June 25, 2020 10:05am OTC capsule Start: 04-24-2020 End: 06-25-2020 flax seed Discontinued PO 0 April 24, 2020 1:00am June 25, 2020 10:05am OTC capsule Start: 04-24-2020 End: 06-25-2020 flax seed Discontinued PO Fe bruary 2020 12:00am June 25, 2020 9:05am OTC capsule Start: 04-24-2020 End: 06-25-2020 flax seed Discontinued PO Fe bruary 2020 1:00am June 25, 2020 10:05am OTC capsule Fluticasone Furoate-Vilanterol (20 sources) Corticosteroid, beta2-Adrenergic Agonist Start: 10-24-2020 End: 04-03-2021 Fluticasone Furoate-Vilanterol (Breo Ellipta) 200-25 mcg/dose blister with device Discontinued 1 INH INHALATION DAILY 60 October 24, 2020 10:03am April 03, 2021 11:10am Start: 10-24-2020 End: 04-03-2021 Fluticasone Furoate-Vilanter ol (Breo Ellipta) 200-25 mcg/dose blister with device Discontinued 1 NMA INHALATION DAILY 60 0 October 24, 2020 12:00am April 03, 2021 11:10am Start: 10-24-2020 End: 04-03-2021 Fluticasone Furoate-Vilanter ol (Breo Ellipta) 200-25 mcg/dose blister with device Discontinued 1 NMA INHALATION DAILY 60 October 24, 2020 12:00am April 03, 2021 11:10am Start: 10-24-2020 End: 04-03-2021 Fluticasone Furoate-Vilanter ol (Breo Ellipta) 200-25 mcg/dose blister with device Discontinued 1 INH INHALATION DAILY 60 October 23, 2020 11:00pm April 03, 2021 10:10am Start: 10-24-2020 End: 04-03-2021 Fluticasone Furoate-Vilanter ol (Breo Ellipta) 200-25 mcg/dose blister with device Discontinued 1 INH INHALATION DAILY 60 October 24, 2020 12:00am April 03, 2021 11:10am 24 hr isosorbide mononitrate 30 mg extended release oral tablet (20 sources) Nitrate Vasodilator Start: 09-24-2021 End: 11-17-2021 take 1 tablet by mouth once daily, then take 1 tablet by mouth every twenty-four hours Isosorbide Mononitrate 30 mg tablet extended release 24 hr Discontinued 30 mg PO DAILY 30 September 24, 2021 11:49am November 11, 2021 9:58am 24 hr metoprolol succinate 100 mg extended release oral tablet (20 sources) beta-Adrenergic Rita Start: 04-13-2024 End: 11-08-2024 take 1 tablet by mouth twice daily Metoprolol Succinate 100 mg tablet extended release 24 hr Discontinued 100 mg PO TWICE A DAY 180 1 May 03, 2024 10:52am November 08, 2024 2:53pm Start: 05-12-2023 End: 04-13-2024 take 1 tablet by mouth twice daily Metoprolol Tartrate 25 mg tablet Discontinued 25 mg PO TWICE A DAY 180 November 19, 2023 8:04am April 13, 2024 2:27pm Start: 04-07-2023 take 75 mg by mouth twice zeinab y Metoprolol Tartrate Active 75 MG PO TWICE A DAY April 07, 2023 12:00am Start: 06-06-2022 End: 04-07-2023 take 1 tablet by mouth twice daily Metoprolol Tartrate 25 mg tablet Discontinued 25 mg PO TWICE A DAY 180 90 February 16, 2023 11:53am April 07, 2023 4:12pm Start: 03-27-2022 End: 06-06-2022 take 2 tablets by mouth twice daily Metoprolol Tartrate 25 mg tablet Discontinued 50 mg PO TWICE A DAY 360 90 March 27, 2022 11:51am June 06, 2022 10:18am Start: 03-27-2022 End: 06-06-2022 take 50 mg by mouth twice daily Metoprolol Tartrate Di scontinued 50 MG PO TWICE A DAY 360 90 March 27, 2022 11:51am June 06, 2022 10:18am Start: 11-17-2021 End: 03-27-2022 take 3 tablets by mouth twice daily Metoprolol Tartrate 25 mg tablet Discontinued 75 mg PO TWICE A DAY 540 90 3 February 17, 2022 3:35pm March 27, 2022 11:52am Start: 11-17-2021 End: 03-27-2022 take 75 mg by mouth twice daily Metoprolol Tartrate Di scontinued 75 MG PO TWICE A DAY 540 90 February 17, 2022 2:35pm March 27, 2022 10:52am Start: 03-01-2012 End: 11-17-2021 take 1 tablet by mouth twice daily Metoprolol Tartrate 25 mg tablet Discontinued 25 mg PO TWICE A DAY 180 3 April 12, 2021 1:20pm November 11, 2021 9:58am Start: 06-13-2010 End: 03-01-2012 take 1 tablet by mouth twice daily METOPROLOL TARTRATE 50 MG TABS One tablet by mouth twice daily METOPROLOL TARTRATE [id number] Tyson Leroy MD Comment on above: Take 25 mg by mouth twice daily. nitroglycerin 0.4 mg sublingual tablet (20 sources) Nitrate Vasodilator Start: 12-17-2021 End: 09-09-2022 Nitroglycerin 0.4 mg tablet, sublingual Discontinued 0 .ROUTE .COMPLEX 25 3 December 17, 2021 9:34am September 09, 2022 1:20pm DISSOLVE 1 TABLET UNDER THE TONGUE EVERY 5 TO 15 MINUTES NEEDED FOR CHEST PAIN Start: 06-13-2010 nitroglycerin sublingual (NITROQUICK) 0.4 mg SL tablet nitroglycerin NITROSTAT 0.4 MG SUBL 1 tablet under the tongue every 5 minutes times 3 as needed for chest pain. NITROGLYCERIN [id number] Tyson Leroy MD 06-13-2010 Yessica Cobian RN [facility] ([id number]) 0 06/13/2010 Active Start: 06-13-2010 End: 11-10-2024 Nitroglycerin 0.4 mg tablet, sublingual Discontinued 0.4 mg SL every 5 to 15 minutes as needed for chest pain 20 December 30, 2017 8:24am June 14, 2019 2:37pm Comment on above: nitroglycerin NITROS TAT 0.4 MG SUBL 1 tablet under the tongue every 5 minutes times 3 as needed for chest pain. NITROGLYCERIN [id number] Tyson Leroy MD 06-13-2010 Yessica Cobian RN [facility] ([id number]) nystatin 100 unt/mg / triamcinolone acetonide 0.001 mg/mg topical ointment (20 sources) Polyene Antifungal, Corticosteroid Start: 09-13-2019 End: 09-23-2019 Nystatin-Triamcinolone 100,000-0.1 unit/gram-% ointment Discontinued 1 NMA TOPICAL DAILY 30 September 13, 2019 12:00am September 23, 2019 8:35am Start: 09-13-2019 End: 09-23-2019 Nystatin-Triamcinolone Disco ntinued 1 APPLIC TOPICAL DAILY September 13, 2019 12:00am September 23, 2019 8:35am omega-3s/dha/epa/fish oil/D3 (VITAMIN-D + OMEGA-3 ORAL) (2 sources) take 3 tablets by mouth once daily omega-3s/dha/epa/fish oil/D3 (VITAMIN-D + OMEGA-3 ORAL) Take 3 tablets by mouth once daily. 0 Active Comment on above: Take 3 tablets by [facility] once daily. omeprazole 20 mg oral tablet (6 sources) Proton Pump Inhibitor Start : 06-13 End: 08-24 take 1 tablet by mouth once daily PRILOSEC 20 MG CPDR One tablet by mouth daily OMEPRAZOLE [id number] Shazia Perez RN oxyCODONE hydrochloride 5 mg oral tablet (19 sources) Opioid Agonist Start : 11-09 End: 02-17 take 1 tablet by mouth every eight hours as needed for pain Oxycodone 5 mg Tablet Discontinued 5 mg PO EVERY 8 HOURS NEEDED as needed for Pain Score 4-10 9 3 0 November 10, 2023 February 18, 2024 10:55am Postoperative pain Other acute postprocedural pain Problems Active Problems Problem Classification Problem Date Documented Date Episodic/Chronic Abdominal hernia (20 sources) Right inguinal hernia ; Translations: [Unilateral inguinal hernia, without obstruction or gangrene, not specified as recurrent] Episodic Comment on above: Patient presents for follow-up H&P as we had contemplated a right inguinal hernia repair, however, in reviewing his CT and ultrasound imaging with radiology as well as repeating his physical exam, I do not feel evidence of a right inguinal hernia. Radiology has confirmed they do not have either CT or ultrasound evidence of a hernia, but rather a large epididymal cyst and hydrocele. Therefore, I would like Mr. Barajas to meet with urology to discuss these concerns as well as his previous concern of phimosis and need for circumcision. Acute myocardial infarction (3 sources) Non-ST elevation (NSTEMI) myocardial infarction; Translations: [Non-ST elevation (NSTEMI) myocardial infarction] Onset: 06-13-2010 06-13-2010 Chronic Cancer of prostate (20 sources) Primary malignant neoplasm of prostate; Translations: [Malignant neoplasm of prostate] Onset: 08-02-2024 04-14-2023 Chronic Cardiac dysrhythmias (20 sources) Atrial fibrillation with rapid ventricular response; Translations: [Unspecified atrial fibrillation] Onset: 07-22-2024 Chronic Chronic obstructive pulmonary disease and bronchiectasis (20 sources) Chronic obstructive lung disease; Translations: [Chronic obstructive pulmonary disease, unspecified] Onset: 05-19-2016 05-19-2016 Chronic Conduction disorders (3 sources) Automatic implantable cardiac defibrillator in situ; Translations: [Presence of automatic (implantable) cardiac defibrillator] Onset: 01-04-2025 12-23-2024 Chronic Congestive heart failure; nonhypertensive (20 sources) Heart failure, unspecified; Translations: [Acute exacerbation of chronic heart failure] Onset: 04-22-2024 04-21-2024 Chronic Coronary atherosclerosis and other heart disease (20 sources) Coronary atherosclerosis; Translations: [Coronary arteriosclerosis] Onset: 06-13-2010 11-20-2016 Chronic Comment on above: PTCA/PETER to LAD and prox to mid LCX 04/11/10; PTCA/PETER of the patent pre existing stent in the prox RCA 01/22/2011;Successful FFR guided PCI of pLCx. FFR of the LM was 0.83 which isconsistent with stenosis that can be treated medically at this time.Successful Cutting balloon angioplasty to pLAD Deficiency and other anemia (19 sources) Anemia; Translations: [Anemia, unspecified] 02-02-2024 Episodic Disorders of lipid metabolism (20 sources) Hyperlipidemia; Translations: [Hyperlipidemia, unspecified] Onset: 06-13-2010 06-13-2010 Chronic Essential hypertension (20 sources) Essential hypertension; Translations: [Essential (primary) hypertension] Onset: 04-07-2024 Chronic Comment on above: CONTROLLED ON MED Gout and other crystal arthropathies (19 sources) Gout; Translations: [Gout, unspecified] 08-12-2023 Chronic Heart valve disorders (20 sources) Aortic valve stenosis; Translations: [Nonrheumatic aortic (valve) stenosis] Onset: 11-15-2024 06-06-2022 Chronic Hypertension with complications and secondary hypertension (1 source) Hypertensive heart and chronic kidney disease with heart failure and stage 1 through stage 4 chronic kidney disease, or unspecified chronic kidney disease; Translations: [Hypertensive heart and chronic kidney disease with heart failure and stage 1 through stage 4 chronic kidney disease, or unspecified chronic kidney disease] Onset: 04-22-2024 Chronic Occlusion or stenosis of precerebral arteries (20 sources) Bilateral stenosis of carotid arteries; Translations: [Occlusion and stenosis of bilateral carotid arteries] Onset: 08-08-2021 Chronic Comment on above: s/p L CEA /p R CEA 10/2023 Open wounds of extremities (19 sources) Cat bite - wound; Translations: [Open bite of unspecified hand, initial encounter] 12-02-2023 Episodic Osteoarthritis (20 sources) Arthritis; Translations: [Unspecified osteoarthritis, unspecified site] 10-01-2017 Chronic Other aftercare (20 sources) Other fpc (current) drug therapy; Translations: [Long-term (current) use of other medications] Onset: 06-13-2010 06-13-2010 Episodic Other aftercare (20 sources) Drug therapy finding; Translations: [Other fpc (current) drug therapy] 02-28-2022 Episodic Other aftercare (19 sources) Wound finding; Translations: [Encounter for other specified aftercare] 04-27-2024 Episodic Other aftercare (19 sources) Long-term current use of diuretic; Translations: [Encounter for therapeutic drug level monitoring] 05-25-2024 Episodic Other aftercare (19 sources) Surgical follow-up; Translations: [Encounter for surgical aftercare following surgery on the circulatory system] 11-26-2023 Episodic Other aftercare (13 sources) Long-term current use of amiodarone; Translations: [Other fpc (current) drug therapy] 05-25-2024 Episodic Other and ill-defined heart disease (20 sources) Left ventricular cardiac dysfunction; Translations: [Heart disease, unspecified] 04-09-2024 Chronic Other and ill-defined heart disease (1 source) Heart disease, unspecified; Translations: [Heart disease, unspecified] Onset: 04-22-2024 Chronic Other circulatory disease (20 sources) Disorder of carotid artery; Translations: [Disorder of arteries and arterioles, unspecified] 09-09-2022 Chronic Other circulatory disease (8 sources) Disorder of arteries and arterioles, unspecified; Translations: [Unspecified disorders of arteries and arterioles] 09-09-2022 Chronic Other lower respiratory disease (20 sources) Dyspnea; Translations: [Shortness of breath] Onset: 06-13-2010 06-13-2010 Episodic Other male genital disorders (20 sources) Finding of sensation of testes; Translations: [Testicular pain, unspecified] 12-20-2021 Episodic Comment on above: Patient with ongoing right testicular discomfort. Ultrasound ultimately confirms CT imaging with findings of a hydrocele, but also a large epididymal cyst. No bowel contents or evidence of a cord lipoma are noted. Imaging has been reviewed with radiology. Other male genital disorders (10 sources) Testicular pain, unspecified; Translations: [Unspecified disorder of male genital organs] Episodic Other male genital disorders (20 sources) Phimosis; Translations: [Phimosis] 01-28-2022 Episodic Other male genital disorders (7 sources) Phimosis; Translations: [Redundant prepuce and phimosis] Episodic Other nervous system disorders (20 sources) Left foot neuritis; Translations: [Unspecified mononeuropathy of left lower limb] 09-29-2018 Chronic Other conditions (20 sources) Patient encounter status; Translations: [Encounter for routine and ritual male circumcision] 12-16-2021 Episodic Peripheral and visceral atherosclerosis (20 sources) Intermittent claudication; Translations: [Peripheral vascular disease, unspecified] Onset: 07-14-2024 06-26-2022 Chronic Residual codes; unclassified (14 sources) Obstructive sleep apnea syndrome; Translations: [Obstructive sleep apnea (adult) (pediatric)] Onset: 08-02-2024 08-16-2024 Chronic Residual codes; unclassified (2 sources) Obstructive sleep apnea (adult) (pediatric); Translations: [Obstructive sleep apnea (adult) (pediatric)] Onset: 08-02-2024 Chronic Residual codes; unclassified (20 sources) Bilateral lower limb edema; Translations: [Localized edema] 09-09-2022 Episodic Residual codes; unclassified (11 sources) Localized edema; Translations: [Edema] 09-09-2022 Episodic Residual codes; unclassified (19 sources) Pale complexion; Translations: [Pallor] 05-25-2024 Episodic Thyroid disorders (20 sources) Hypothyroidism; Translations: [Hypothyroidism, unspecified] Onset: 08-02-2024 Chronic Unclassified (11 sources) I51.9 - Heart disease, unspecified,I50.9 - Heart failure, unspecified,R93.1 - Abnormal findings on diagnostic imaging of heart and coronary circulation,I48.0 - Paroxysmal atrial fibrillation,I25.10 - 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,Z98.61 - Coronary angioplasty status,I65.23 - Occlusion and stenosis of bilateral carotid arteries,E78.5 - Hyperlipidemia, unspecified Unclassified (9 sources) The office will contact you regarding an appointment in April Unclassified (11 sources) I48.0 - Paroxysmal atrial fibrillation,I51.9 - Heart disease, unspecified,Z98.61 - Coronary angioplasty status Unclassified (6 sources) Left ventricular dysfunction Unclassified (6 sources) Status post percutaneous transluminal coronary angioplasty Unclassified (5 sources) Autogenerated Problem Onset: 12-12-2024 12-12-2024 Unclassified (2 sources) Other persistent atrial fibrillation; Translations: [Other persistent atrial fibrillation (HCC)] Onset: 08-02-2024 Past or Other Problems Problem Classification Problem Date Documented Da te Episodic/Chronic Cardiac dysrhythmias (20 sources) Palpitations; Translations: [Bradycardia] Onset: 08-25-2011 08-25-2011 Episodic Coronary atherosclerosis and other heart disease (20 sources) Coronary angioplasty status; Translations: [Stented coronary artery] Onset: 06-13-2010 06-13-2010 Episodic Comment on above: PTCA/PETER to LAD and prox to mid LCX 04/11/10; PTCA/PETER of the patent pre existing stent in the prox RCA 01/22/2011 PTCA/PETER to LAD and prox to mid LCX 04/11/10; PTCA/PETER of the patent pre existing stent in the prox RCA 01/22/2011;Successful FFR guided PCI of pLCx. FFR of the LM was 0.83 which isconsistent with stenosis that can be treated medically at this time.Successful Cutting balloon angioplasty to pLAD PTCA/PETER to LAD and prox to mid LCX 04/11/10; PTCA/PETER of the patent pre existing stent in the prox RCA 01/22/2011;Successful FFR guided PCI of pLCx. FFR of the LM was 0.83 which is consistent with stenosis that can be treated medically at this time. Successful Cutting balloon angioplasty to pLAD Deficiency and other anemia (1 source) Anemia, unspecified; Translations: [Anemia, unspecified] Onset: 03-03-2024 Episodic Nonmalignant breast conditions (17 sources) Lump of upper inner quadrant of breast; Translations: [Unspecified lump in unspecified breast] Onset: 09-13-2024 08-31-2024 Episodic Nonspecific chest pain (3 sources) Precordial pain; Translations: [Precordial pain] Onset: 03-21-2015 03-21-2015 Episodic Other aftercare (1 source) Encounter for therapeutic drug level monitoring; Translations: [Encounter for therapeutic drug level monitoring] Onset: 06-13-2024 Episodic Other aftercare (1 source) Encounter for change or removal of nonsurgical wound dressing; Translations: [Encounter for change or removal of nonsurgical wound dressing] Onset: 05-06-2024 Episodic Other circulatory disease (9 sources) History of myocardial infarction; Translations: [Cardiovascular stress test abnormal] Onset: 06-13-2010 09-06-2010 Episodic Other connective tissue disease (3 sources) Pain in lower limb; Translations: [Pain in leg, unspecified] Onset: 03-10-2013 03-10-2013 Episodic Other nutritional; endocrine; and metabolic disorders (18 sources) Body mass index (BMI) 26.0-26.9, adult; Translations: [Body mass index (BMI) 27.0-27.9, adult] Onset: 09-12-2013 Resolved: 05-19-2016 05-19-2016 Episodic Other screening for suspected conditions (not mental disorders or infectious disease) (20 sources) CT of abdomen abnormal; Translations: [Abnormal findings on diagnostic imaging of other parts of digestive tract] Onset: 08-08-2021 Episodic Comment on above: Patient demonstratin g some terminal ileal thickening with recent CT imaging. Also communicates that he has had alternating diarrhea and constipation. These bowel changes are accompanied by nonspecific discomfort in the right lower quadrant. However, patient's exam is benign today. We will discuss radiographic finding with GI, but patient is up-to-date as of now on his screening colonoscopies. EF dropped from 55% per October 2023 echo to 25% per Mar 2024 echo Residual codes; unclassified (7 sources) Other specified postprocedural states; Translations: [Other postprocedural status] Onset: 02-02-2024 Episodic Residual codes; unclassified (1 source) Pallor; Translations: [Pallor] Onset: 06-06-2024 Episodic Unclassified (3 sources) Family history of stroke; Translations: [Family history of stroke] 09-12-2013 Episodic Results Test Name Value Interpretation Reference Range Facility Progress Noteon 01-19-2025 Progress Note 01/19/25 1351 BPCI Late Drop? Program late drop? Yes BPCI Outreach Assessment Selection Which outreach assessment are you completing? 30 Day BPCI - 30 Day Outreach Did patient answer phone call? Yes Since you have been discharged from the facility, what do you feel the status of you condition is? Improving Do you have any concerns with your medication(s)? No Any complications with post discharge services? No (Transferring care to [facility] device clinic) Any concerns with your DME equipment? No Any questions about your condition you are unsure about that I can help clarify? No Late Drop/Outpatient - Patient on BPCI Advanced: OP Patients Qualify for Cardiac Care and Cardiac Procedures from [facility] report 01/03/25. EMR reviewed. Patient enrolled in [facility]iac 90-day BPCI Program post-hospital outpatient procedure 03/18/24 Dx: ICD. 30-day BPCI outreach made introduced self and role to patient. Patient reports doing okay feeling a little under the weather today which he believes is from getting his flu and pneumonia vaccines yesterday. Denies any SOB, palpitations, ICD malfunctions. Patient is going to follow with Cardiology in [place] for Ischemic Cardiomyopathy and Device Care referral sent to them by Dr. Beavers's office. Patient appreciative for call aware CM to continue to follow until completion of BPCI program. 60-day BPCI outreach scheduled. Recent Cardiology visit 01/04 copied below. Office Visit 01/04/2025 [facility] Cardiology [facility] Ronnie Troy MD Cardiology Chronic systolic heart failure (HCC) +11 more Dx Coronary Artery Disease Atrial Fibrillation Hypertension Hyperlipidemia Sleep Apnea Congestive Heart Failure Carotid Artery Disease Hypothyroidism COPD Reason for Visit Progress Notes Ronnie Troy MD (Physician) Cardiology [facility] [place] [facility]roph ysiology Follow Up Clinic Note Chief Complaint: Chief Complaint Patient presents with Coronary Artery Disease Atrial Fibrillation Persistent Hypertension Hyperlipidemia Sleep Apnea Congestive Heart Failure systolic Carotid Artery Disease Hypothyroidism COPD History of Present Illness: Nikko Barajas is a 79 y.o. male referred here in Aug 2024 for management of his AFib. He has known CAD s/p stent to the LAD and Circ in 2010 and repeat PCI to the prox LAD in Mar 2022. In 2021 he had a L CEA and had postop A-fib for which he was on amiodarone. That was stopped at some point b/o abnormal PFTs. His LVEF had been preserved until Sep 2023 by echoes. He felt fine until late 2023 when he noticed more SOB/GARVIN and fatigue. In Mar 2024 [facility] and a newly depressed LVEF of 25%. He was given metoprolol and amio, but not cardioverted. In May 2024 an echo showed a persistently low LVEF of 30% and in Jun 2024 he had a CVN, but recurred within a few days. He was started on digoxin, and Cardizem 120 mg daily in addition to metoprolol 100 mg twice a day. When I met him, I increased his Cardizem to 180 mg in the hope that his LV dysfunction was related to rapid heart rates and asked the [facility] to get a 24 for-hour Holter and repeat an echo. The 24 hour Holter in September 2024 showed an avg HR of ~85 bpm. An echo in Oct 2024 showed an EF of 35% with a moderately enlarged LA and 1-2+ MR/TR. I recommended implanting a single-chamber ICD. He returns today feeling well. He never felt palpitation with his A-fib, but clearly felt that more SOB/GARVIN in the fall 2023 compared to his baseline. He reports HRs in the 70s to 90s. This is confirmed by his Kardia strips which he does almost every day and all show heart rates less than 100 at rest. He denies chest pain, SOB/GARVIN, or LE edema since starting the Lasix. He is active around the yard and can do all of his ADLs without symptoms. In general he feels very well. An ECG today shows atrial fibrillation with a VR of ~80 bpm, similar to the one in August.. An echo in May 2024 shows an LVEF of 30%, a severely enlarged LA (JOSEPH 75), moderately severe MR (3+), mild TR (PAP of 28 mmHg) and mild to mod AoS. The echo in October 2024 was essentially unchanged. Device interrogation today shows a normal functioning single-chamber [employer] ICD with good pacing and sensing thresholds and with an average heart rate in the 80s. He is V pacing less than 1%. Assessment and Plan: 1. Persistent Atrial Fibrillation: As far as I can tell, he may have gone into persistent A-fib in late 2023. His EF decrease may have been related to rapid rates, however his rates now are well-controlled, and his EF has not improved. Rate control appears like an adequate strategy (more content not included)... Normal [facility] PSA,Total- Diagnosticon 11-0 PSA, DIAGNOSTIC 0.05 ng/mL Normal 0.00-4.00 [facility] Comment on above: Result Comment: This test was performed using the [employer] tPSAmethod. Measured values of a patient??sample can varydepending on the testing procedure used. PSA valuesdetermined on patient samples by different testingprocedures cannot be used interchangeably. If there is achange in PSA assays while monitoring therapy, sequentialtesting should be performed to confirm baseline values. Performed By: #### L [id number] ####[facility] [id number] [place], [address] Radiation Oncology Visiton 1 03-19-2024 Radiation Oncology Visit Normal [facility] Progress Noteon 01-11-2025 Progress Note 01/11/2025 Community Health Worker Patient active with: [facility] [place] Reason for Call: BPCI outreach Chart review completed. Follow up Appointments 04/13/25 Device Check 08/15/25 Cardiology Placed a phone call no answer, left voice message stating reason for call. Left contact information for call back. Outreach scheduled for BPCI follow up. Normal [facility] ECG 12 lead - CLINIC PERFORM EDon 01-04-2025 Atrial fibrillation with a controlled VR Nonspecific ST/T wave changes [facility] Office Visiton 01-04-2025 Follow-up visit [id number] Nikko Barajas 1945 M Date Provider Department Center 01/04/2025 [id number] WILKERSON [facility] None Family History Problem Relation Age of Onset Coronary artery disease Mother Stroke Father Cancer Brother Family Status - Relation Status Age at Mother Father Brother Level of Service:04147 NM OFFICE/OUTPATIENT ESTABLISHED MOD MDM 30 MIN Reason for Visit and Comments: Coronary Artery Disease [187] Atrial Fibrillation [80] - Persistent Hypertension [662693] Hyperlipidemia [182] Sleep Apnea [348] Congestive Heart Failure [127] - systolic Carotid Artery Disease [453] Hypothyroidism [143] COPD [313] Normal [facility] Progress Noteon 01-04-2025 Progress Note [facility] [place] [facility]ology Follow Up Clinic Note Chief Complaint: Chief Complaint Patient presents with Coronary Artery Disease Atrial Fibrillation Persistent Hypertension Hyperlipidemia Sleep Apnea Congestive Heart Failure systolic Carotid Artery Disease Hypothyroidism COPD History of Present Illness: Nikko Barajas is a 79 y.o. male referred here in Aug 2024 for management of his AFib. He has known CAD s/p stent to the LAD and Circ in 2010 and repeat PCI to the prox LAD in Mar 2022. In 2021 he had a L CEA and had postop A-fib for which he was on amiodarone. That was stopped at some point b/o abnormal PFTs. His LVEF had been preserved until Sep 2023 by echoes. He felt fine until late 2023 when he noticed more SOB/GARVIN and fatigue. In Mar 2024 he presented to [facility] in [facility] with RVR and a newly depressed LVEF of 25%. He was given metoprolol and amio, but not cardioverted. In May 2024 an echo showed a persistently low LVEF of 30% and in Jun 2024 he had a CVN, but recurred within a few days. He was started on digoxin, and Cardizem 120 mg daily in addition to metoprolol 100 mg twice a day. When I met him, I increased his Cardizem to 180 mg in the hope that his LV dysfunction was related to rapid heart rates and asked the [facility] group to get a 24 for-hour Holter and repeat an echo. The 24 hour Holter in September 2024 showed an avg HR of ~85 bpm. An echo in Oct 2024 showed an EF of 35% with a moderately enlarged LA and 1-2+ MR/TR. I recommended implanting a single-chamber ICD. He returns today feeling well. He never felt palpitation with his A-fib, but clearly felt that more SOB/GARVIN in the fall 2023 compared to his baseline. He reports HRs in the 70s to 90s. This is confirmed by his Kardia strips which he does almost every day and all show heart rates less than 100 at rest. He denies chest pain, SOB/GARVIN, or LE edema since starting the Lasix. He is active around the yard and can do all of his ADLs without symptoms. In general he feels very well. An ECG today shows atrial fibrillation with a VR of ~80 bpm, similar to the one in August.. An echo in May 2024 shows an LVEF of 30%, a severely enlarged LA (JOSEPH 75), moderately severe MR (3+), mild TR (PAP of 28 mmHg) and mild to mod AoS. The echo in October 2024 was essentially unchanged. Device interrogation today shows a normal functioning single-chamber [employer] ICD with good pacing and sensing thresholds and with an average heart rate in the 80s. He is V pacing less than 1%. Assessment and Plan: 1. Persistent Atrial Fibrillation: As far as I can tell, he may have gone into persistent A-fib in late 2023. His EF decrease may have been related to rapid rates, however his rates now are well-controlled, and his EF has not improved. Rate control appears like an adequate strategy at this point. Given his severely enlarged LA, the likelihood of maintaining sinus rhythm over the long run would be extremely low, especially since he has a contraindication to amiodarone. His rates are controlled despite stopping the Cardizem on metoprolol and digoxin. He will need to continue with oral anticoagulation indefinitely of course. 2. Chronic systolic Heart Failure: Initially felt to be tachycardia mediated, but his rates have been controlled. He may have an element of ischemic cardiomyopathy. He is now protected by a single-chamber ICD from the risk of sudden . He also needs better medical therapy. He is now on good medical therapy. His BP runs in the low 100s and he has occasional orthostatic dizziness. I would not increase the medications further. 3. CAD: This appears silent. No need for further workup at this point. Today I spoke to him about the fact that he can follow in [place] both for his ischemic cardiomyopathy and for his device care. He prefers that, especially in the winter. I will let Bud Se know to set him up in their device clinic in [place]. I will see him here once next spring at his request, but after that I think he can follow in [place] unless there are problems. Past Medical History: Medical History[1] Past Surgical History Surgical History[2] Family History Family History[3] Social History Social History[4] Medications: Reviewed Allergies: Reviewed Review of Systems: All other systems were reviewed and are negative other than as noted in the HPI. Physical Examination: Vitals: Blood pressure 96/52, pulse 90, height 5' 9 (1.753 m), weight 156 lb (70.8 kg), SpO2 98%. Constitutional: Appears well kept and looks stated age; in NAD Psychiatric: A &O x3 Mood is pleasant; Affect is appropriate Musculoskeletal: Normocephalic; no joint swelling; gait steady; 5/5 muscle strength bilaterally in upper and lower extremities; no clubbing or cyanosis HEENT: Pupils are equal and round; Conjunctiva are not injected; Sclera are non-icteric; Airway (more content not included)... Normal [facility] XR CHEST 1 VIEWon 12-21-2024 XR CHEST 1 VIEW Patient Name: NIKKO BARAJAS : 1945 Exam Date/Time: 12/19/2024 06:38 Procedure: XR CHEST 1 VIEW Ordering Provider: JEFFERS HANNAH Reason For Exam: pre procedure Clinical History: pre procedure Comparison: None Technique: Single AP radiograph of the chest. Findings: Cardiomediastinal silhouette and pulmonary vasculature are within normal limits. Coronary artery stent. The lungs and pleural spaces are clear. No sizable pneumothorax. Surgical clips overlying the right neck. IMPRESSION: No acute consolidative process. Report Dictated on Electronically Signed By: Brian Baltazar DR Electronically Signed Date/Time: 12/21/2024 2:37 PM EDT [facility] XR CHEST 2 VIEWSon XR CHEST 2 VIEWS Patient Name: NIKKO BARAJAS : 1945 Exam Date/Time: 12/19/2024 11:49 Procedure: XR CHEST 2 VIEWS Ordering Provider: MATHIAS LORI Reason For Exam: CHRONIC LEFT SYSTOLIC HEART FAILURE; new device implant CHEST X-RAY PA/LATERAL CLINICAL INDICATION: CHRONIC LEFT SYSTOLIC HEART FAILURE; new device implant Frontal and lateral plain films of the chest were obtained. COMPARISON: 12/19/2024 FINDINGS: The cardiac silhouette is within normal limits. There has been placement of a left-sided pacemaker device with a single lead terminating within the right ventricle. No focal consolidation is seen within the lungs. No pleural effusion or pneumothorax is identified. The bony structures of the chest are unremarkable as visualized for the patient's age. IMPRESSION: Status post left-sided pacemaker device with a single lead terminating within the right ventricle. No evidence of pneumothorax. The lungs are clear. Report Dictated on Electronically Signed By: Nikunj Jose MD Electronically Signed Date/Time: 12/21/2024 2:29 PM EDT Normal [facility] BASIC METABOLIC PANELon 10-0 Anion gap [Moles/Vol] 12 mmol/L Normal 3-13 [facility] Comment on above: Performed By: #### L [id number] #### Hospitalist Nocturnist Physician: CAMILLE SIMMONS ([id number]) [facility]) [address] [place] [address] Calcium [Mass/Vol] 9.7 mg/dL Normal 8.8-10.0 [facility] Comment on above: Performed By: #### L AB15 #### Hospitalist Nocturnist Physician: CAMILLE SIMMONS ([id number]) [facility]) [address] [place] [address] Chloride [Moles/Vol] 105 mmol/L Normal 98-107 [facility] Comment on above: Performed By: #### L AB15 #### Hospitalist Nocturnist Physician: CAMILLE SIMMONS ([id number]) [facility]) [address] [place] [address] CO2 [Moles/Vol] 22 mmol/L Low 23-31 [facility] Comment on above: Performed By: #### L AB15 #### Hospitalist Nocturnist Physician: CAMILLE SIMMONS ([id number]) [facility]) [address] [place] [address] Creatinine [Mass/Vol] 0.99 mg/dL Normal 0.72-1.25 [facility] Comment on above: Performed By: #### L AB15 #### Hospitalist Nocturnist Physician: CAMILLE [id number]) [facility]) [address] [place] [address] [place] GLOMERULAR FILTRATION RATE ML/MIN/1.73 SQ M.PREDICTED 78.5 mL/min/1.73m*2 Normal >60.0 [facility] Comment on above: Result Comment: Calc ulation based on the Chronic Kidney Disease Epidemiology Collaboration (CKD-EPI) equation refit without adjustment for race Performed By: #### L AB15 #### Hospitalist Nocturnist Physician: CAMILLE SIMMONS ([phone]) [facility]) [address] [place] [address] Glucose [Mass/Vol] 114 mg/dL Normal 82-115 [facility] Comment on above: Performed By: #### L AB15 #### Hospitalist Nocturnist Physician: CAMILLE SIMMONS ([id number]) [facility]) [address] [place] [address] Potassium [Moles/Vol] 4.2 mmol/L Normal 3.5-5.1 [facility] Comment on above: Result Comment: [facility] potassium values may be up to 0.5 mmol/L lower than serum values. Performed By: #### L AB15 #### Hospitalist Nocturnist Physician: CAMILLE SIMMONS ([id number]) [facility]) [address] [place] [address] Sodium [Moles/Vol] 139 mmol/L Normal 136-145 [facility] Comment on above: Performed By: #### L AB15 #### Hospitalist Nocturnist Physician: CAMILLE SIMMONS ([id number]) [facility]) [address] [place] [address] [place] Urea nitrogen [Mass/Vol] 31 mg/dL High 9-23 [facility] Comment on above: Performed By: #### L AB15 #### Hospitalist Nocturnist Physician: CAMILLE SIMMONS ([id number]) [facility]) [address] [place] [address] Basic metabolic 1998 panelon 12-19-2024 Anion gap [Moles/Vol] 12 mmol/L 3 - 13 mmol/L [facility] Calcium [Mass/Vol] 9.7 mg/dL 8.8 - 10. 0 mg/dL [facility] Chloride [Moles/Vol] 105 mmol/L 98 - 10 7 mmol/L [facility] CO2 [Moles/Vol] 22 mmol/L Low 23 - 31 mmol/L [facility] Creatinine [Mass/Vol] 0.99 mg/dL 0.72 - 1.25 mg/dL [facility] GFR/1.73 sq M.predicted (S/P/Bld) [Vol rate/Area] 78.5 mL/min - PINF [facility] Comment on above: Calculation based on the Chronic Kidney Disease Epidemiology Collaboration (CKD-EPI) equation refit without adjustment for race Glucose [Mass/Vol] 114 mg/dL 82 - 115 mg/dL [facility] Interpretation and review of laboratory results Abnormal [facility] Potassium [Moles/Vol] 4.2 mmol/L 3.5 - 5.1 mmol/L [facility] Comment on above: Plasma potassium jean ues may be up to 0.5 mmol/L lower than serum values. Sodium [Moles/Vol] 139 mmol/L 136 - 145 mmol/L [facility] Urea nitrogen [Mass/Vol] 31 mg/dL High 9 - 23 mg/d L [facility] CBC (HEMOGRAM)on 12-19-2024 Erythrocyte distribution width (RBC) [Ratio] 13.8 % Normal 11.5-15.0 [facility] Comment on above: Performed By: #### L [id number] #### Hospitalist Nocturnist Physician: CAMILLE SIMMONS ([id number]) [facility]) [address] [place] [address] Hematocrit (Bld) [Volume fraction] 35.5 % Low 40.0-52.0 [facility] Comment on above: Performed By: #### L [id number] #### Hospitalist Nocturnist Physician: CAMILLE [id number]) [facility]) [address] [place] [address] Hemoglobin (Bld) [Mass/Vol] 12.3 g/dL Low 13.0-18.0 [facility] Comment on above: Performed By: #### L [id number] #### Hospitalist Nocturnist Physician: CAMILLE [id number]) [facility] [address] [place] [address] MCH (RBC) [Entitic mass] 32.5 pg Normal 26.0-34.0 [facility] Comment on above: Performed By: #### L [id number] #### Hospitalist Nocturnist Physician: CAMILLE SIMMONS ([id number]) [facility]) [address] [place] [address] MCHC 34.6 % Normal 30.5-36.0 [facility] Comment on above: Performed By: #### L [id number] #### Hospitalist Nocturnist Physician: CAMILLE SIMMONS ([id number]) [facility]) [address] [place] [address] MCV (RBC) [Entitic vol] 93.7 fL Normal 77.0-99.0 [facility] Comment on above: Performed By: #### L [id number] #### Hospitalist Nocturnist Physician: CAMILLE SIMMONS ([id number]) [facility] [address] [place] [address] Platelet mean volume (Bld) [Entitic vol] 11.1 fL Normal 9.0-12.7 [facility] Comment on above: Performed By: #### L [id number] #### Hospitalist Nocturnist Physician: CAMILLE SIMMONS ([id number]) [facility] ([facility]) [address] [place] [address] Platelets (Bld) [#/Vol] 177 10*3/uL Normal 140-440 [facility] Comment on above: Performed By: #### L [id number] #### Hospitalist Nocturnist Physician: CAMILLE SIMMONS ([id number]) [facility] ([facility]) [address] [place] [address] RBC (Bld) [#/Vol] 3.79 10*6/uL Low 4.40-5.90 [facility] Comment on above: Performed By: #### L [id number] #### Hospitalist Nocturnist Physician: CAMILLE SIMMONS ([id number]) [facility] [address] [place] [address] [place] WBC (Bld) [#/Vol] 9.3 10*3/uL Normal 3.6-10.7 [facility] Comment on above: Performed By: #### L [id number] #### Hospitalist Nocturnist Physician: CAMILLE SIMMONS ([id number]) [facility] ([facility]) [address] [place] [address] CBC panel Auto (Bld)on 12-19 Erythrocyte distribution width (RBC) [Ratio] 13.8 % 11.5 - 15.0 % [facility] Hematocrit (Bld) [Volume fraction] 35.5 % Low 40.0 - 52.0 % [facility] Hemoglobin (Bld) [Mass/Vol] 12.3 g/dL Low 13.0 - 18.0 g/dL [facility] Interpretation and review of laboratory results Abnormal [facility] MCH (RBC) [Entitic mass] 32.5 pg 26. 0 - 34.0 pg [facility] MCHC (RBC) [Mass/Vol] 34.6 % 30.5 - 36.0 % [facility] MCV (RBC) [Entitic vol] 93.7 fL 77.0 - 99.0 fL [facility] Platelet mean volume (Bld) [Entitic vol] 11.1 fL 9.0 - 12.7 fL [facility] Platelets (Bld) [#/Vol] 177 10*3/uL 140 - 440 10*3/uL [facility] RBC (Bld) [#/Vol] 3.79 10*6/uL Low 4.40 - 5.9 0 10*6/uL [facility] WBC (Bld) [#/Vol] 9.3 10*3/uL 3.6 - 10.7 10*3/uL [facility] ECG 12-LEADon 12-19-2024 ECG 12-LEAD IMPRESSION: Atrial fibrillation Borderline ST depression, anterolateral leads Electronically Signed On 12-19-2024 10:24:05 EDT by [facility] ECG 12-LEAD IMPRESSION: Atrial fibrillation ST DEPRESSION, CONSIDER ISCHEMIA, ANT-LAT LDS Electronically Signed On 12-19-2024 10:04:00 EDT by [facility] Electrophysiology studyon Status post implantation of single-chamber ICD in the setting of permanent atrial fibrillation, nonischemic dilated cardiomyopathy on excellent medical regimen with chronic systolic heart failure secondary to severe LV dysfunction Procedure Details After informed consent was obtained the patient was brought to the electrophysiology lab in a fasting nonsedated state. Left chest was prepped and draped in usual sterile fashion. Using 2% Xylocaine and 0.5% bupivacaine the subcutaneous tissues in the left infraclavicular space were anesthetized. After adequate anesthesia, #15 blade was used to make a 5 cm incision just medial to the left deltopectoral groove. Blunt dissection and electrocautery was taken down to the level of the prepectoralis fascia. Using a combination of blunt dissection and electrocautery a left-sided prepectoral pocket was fashioned. All bleeders were cauterized. Using the modified Seldinger technique and 2% Xylocaine for anesthesia the left subclavian vein was cannulated on 1 occasion using a first rib approach and a standard J guidewire was advanced down into the right heart. Over this guidewire, a 7 Armenian peel-away safe sheath was then inserted. The guidewire and introducer removed. The defibrillator lead was advanced down under fluoroscopic guidance into the right heart. The sheath was peeled away and removed. A curved stylette was inserted the lead was prolapsed across the tricuspid valve and the tip was placed in the septal right ventricular apex. The lead was actively fixated into place. 10 V stimulation failed to capture the diaphragm. Pacing and sensing parameters were as below. The lead was sutured in place to the pectoralis muscle using 2-0 silk suture and the provided suture sleeve. The tip was cleaned dried and retested and continued to demonstrate excellent pacing and sensing parameters. The device was fastened to the leads and the system placed inside the pocket. The pocket was vigorously irrigated with gentamicin solution and the wound was then closed in several layers with the lowest layer being interrupted 2-0 Vicryl followed by running 3-0 and 4-0 Dexon. Steri-Strips were placed across the incision and a dry sterile dressing was placed atop the ICD implantation site. The patient tolerated the procedure very well and left the EP lab in stable condition. There were no apparent complications. Device data: The implanted device is an L2 model CD VRA 500 Q serial [id number]. The defibrillator lead is an Lisa 71-2 Q serial [id number]. R waves 11.9 mV pacing threshold 0.5 V at 0.5 ms impedance 590 ohms CV CPACS HEMO [facility] No Panel Informationon 12-19 P Galvin 0 degrees [facility] NM Interval 0 ms [facility] QRS Galvin -12 degrees [facility] QRSD Interval 100 ms [facility] QT Interval 380 ms [facility] QTC Interval 413 ms [facility] T Wave Galvin 44 degrees [facility] Atrial fibrillation Borderline ST depression, anterolateral leads Electronically Signed On 12-19-2024 10:24:05 EDT by Harry Cardenas MD - 12/19/2024 IMPRESSION: Atrial fibrillation Borderline ST depression, anterolateral leads Electronically Signed On 12-19-2024 10:24:05 EDT by Mcdonaldselina Morales [facility] Atrial fibrillation ST DEPRESSION, CONSIDER ISCHEMIA, ANT-LAT LDS Electronically Signed On 12-19-2024 10:04:00 EDT by Harry Cardenas MD - 12/19/2024 IMPRESSION: Atrial fibrillation ST DEPRESSION, CONSIDER ISCHEMIA, ANT-LAT LDS Electronically Signed On 12-19-2024 10:04:00 EDT by Mcdonaldselina Morales [facility] No Panel InformationOrdered By: Harry Morales on 12-19-2024 P Galvin 0 degrees [facility] Work Phone: NM Interval 0 ms [facility] Work Phone: QRS Galvin -31 degrees [facility] Work Phone: QRSD Interval 101 ms [facility] Work Phone: QT Interval 387 ms [facility] Work Phone: QTC Interval 464 ms [facility] Work Phone: T Wave Galvin 0 degrees [facility] Work Phone: [facility] Work Phone: Progress Noteon 12-19-2024 Progress Note Post ICD instructions reviewed with patient and family. Site is without edema or ecchymosis. Ice has been applied. Chest x-ray reveals good lead placement and no pneumothorax. Booklet was given to patient's follow-up has been made. I reinforced that he should not resume his Eliquis until Thursday morning. He can be discharged at 1PM. Normal [facility] Vital signson 12-19-2024 Heart rate 71 /min bpm [facility] Vital signsOrdered By: Harry Morales on 12-19-2024 Heart rate 86 /min bpm [facility] [employer] [facility] Work Phone: 29on 12-12-2024 29 Addended by: LESLI JEFFERS on: 12/16/2024 03:59 PM Modules accepted: Orders Normal [facility] 36on 12-12-2024 36 Pt is scheduled for a ICD single chamber implant on 12/19/2024 w/HERIBERTO Case # [id number] 3 mo fu w/ OC 03/22/2025 [facility] 36 No auth needed for ICD Implant [id number] per Medicare Guidelines/ [employer] is a supple plan and will follow medicare guidelines Pt is good to go Normal [facility] 36 Good Afternoon Pt is scheduled for a ICD single chamber implant on 12/19/2024. I will need an auth for this please Thank you [facility] 36 Case request placed for single-lead ICD implant on 12/19/[address] Perdomo. Prep for proc completed [facility] 36 Patient is scheduled for a Single ICD Placement on December [address] Perdomo Arrive at [facility] Main Entrance at [address] [place] [address], and then take the East Elevators to the 1st [facility] where you will check in. The hospital will call you the day prior to procedure to give you your arrival time. If you do not receive a call by 5:30 pm the day prior, call Blending K[employer] Tender at [phone] You must have a courier delivery driver the day of procedure, you are not able to drive yourself Patient to hold 4 doses of eliquis last dose December 16 PM dose NPO @ midnight and hold Lasix and Spironolactone in am prior to procedure, you may take other am medications Sp wipes provided at last OV and instructions went over during PC with patient, will also send via [employer] Discussed no driving for 10 days as well as no heavy lifting/pulling >5lbs for 4 weeks You may shower day 2 of post op but dressing remains on until day 5 Device and wound check will be scheduled 2-3 weeks after Follow up appointment 3 months after placement Will need Labs/CXR and updated H&P on arrival (last completed 11/15/24) Any questions please call Winifred at [phone] [facility] 36on 12-09-[address] Troy reviewed will ask Winifred to set up single chamber ICD with Dr Perdomo ERIC 11-15-24 H &P 11-15-24 EKG 11-15-24 Labs Patient lives in [place] 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 OC FU 02/21/25 [facility] MR/BMS.BVSon 11-24-2024 MR/BMS.BVS Normal [facility] ECG 12 lead - CLINIC PERFORM EDon 11-15-2024 Atrial fibrillation with a controlled VR LVH with repol abnormality [facility] Office Visiton 11-15-2024 Follow-up visit [id number] Nikko Barajas 1945 M Date Provider Department Center 11/15/2024 RONNIE DE LEÓN [facility] None Family History Problem Relation Age of Onset Coronary artery disease Mother Stroke Father Cancer Brother Family Status - Relation Status Age at Mother Father Brother Level of Service:80665 NM OFFICE/OUTPATIENT ESTABLISHED HIGH MDM 40 MIN Reason for Visit and Comments: 3 Month Follow Up [[id number]] [facility] Progress Noteon 11-15-2024 Progress Note [facility] [place] Cardiology/Electroph ysiology Follow Up Clinic Note Chief Complaint: Chief Complaint Patient presents with 3 Month Follow Up History of Present Illness: Nikko Barajas is a 79 y.o. male referred here in Aug 2024 for management of his AFib. He has known CAD s/p stent to the LAD and Circ in 2010 and repeat PCI to the prox LAD in Mar 2022. In 2021 he had a L CEA and had postop A-fib for which he was on amiodarone which was stopped at some point b/o abnormal PFTs. His LVEF had been preserved until Sep 2023 by echoes. He felt fine until late 2023 when he noticed more SOB/GARVIN and fatigue. In Mar 2024 he presented to [facility] in [facility] with RVR and a newly depressed LVEF of 25%. He was given metoprolol and amio, but not cardioverted. In May 2024 an echo showed a persistently low LVEF of 30% and he he had a CVN in Jun 2024, but recurred within a few days. He was started on digoxin, and Cardizem 120 mg daily in addition to metoprolol 100 mg twice a day. When I met him, I increased his Cardizem to 180 mg in the hope that his LV dysfunction was related to rapid heart rates and asked the [place] group to get a 24 for-hour Holter and repeat an echo. He returns today feeling well. He never felt palpitation with his A-fib, but clearly felt that more SOB/GARVIN in the fall 2023 compared to his baseline. He reports HRs in the 70s to 90s. This is confirmed by his Kardia strips which he does almost every day and all show heart rates less than 100 at rest. He denies chest pain, SOB/GARVIN, or LE edema since starting the Lasix. He is active around the yard and can do all of his ADLs without symptoms An ECG today shows atrial fibrillation with a VR of ~80 bpm, similar to the one in August.. An echo in May 2024 shows an LVEF of 30%, a severely enlarged LA (JOSEPH 75), moderately severe MR (3+), mild TR (PAP of 28 mmHg) and mild to mod AoS. A 24-hour Holter in September 2024 showed an average heart rate of 85 bpm. A repeat echo in Oct 2024 shows an LVEF of 35% with a moderately enlarged LA and 1-2+ MR/TR. Assessment and Plan: 1. Persistent Atrial Fibrillation: As far as I can tell, he may have gone into persistent A-fib in late 2023. His EF decrease may have been related to rapid rates, however his rates now are well-controlled, yet his EF has not improved. We need to treat his cardiomyopathy (see below). As far as rhythm vs rate control, he is currently asymptomatic. Given his severely enlarged LA, the likelihood of maintaining sinus rhythm is extremely low, especially since he has a contraindication to amiodarone. Given his persistent LV dysfunction, we need to stop the Cardizem. We we will have to follow his rates carefully. I will see him in November after those tests are done in [place] 2. Chronic systolic Heart Failure: Initially felt to be tachycardia mediated, but his rates have been controlled. He may have an element of ischemic cardiomyopathy. Today I spoke to him and his at length about the risk of sudden and the need for an ICD. I would implant a single-chamber ICD. This will allow us to monitor his heart rates in [facility] as well. He also needs better medical therapy. I will start him on Aldactone and Farxiga and increase his lisinopril to 10 mg daily. 3. CAD: This appears silent. No need for further workup at this point. Past Medical History: Medical History[1] Past Surgical History Surgical History[2] Family History Family History[3] Social History Social History[4] Medications: Reviewed Allergies: Reviewed Review of Systems: All other systems were reviewed and are negative other than as noted in the HPI. Physical Examination: Vitals: Blood pressure 124/66, pulse 82, height 5' 9 (1.753 m), weight 164 lb 6.4 oz (74.6 kg), SpO2 96%. Constitutional: Appears well kept and looks stated age; in NAD Psychiatric: A &O x3 Mood is pleasant; Affect is appropriate Musculoskeletal: Normocephalic; no joint swelling; gait steady; 5/5 muscle strength bilaterally in upper and lower extremities; no clubbing or cyanosis HEENT: Pupils are equal and round; Conjunctiva are not injected; Sclera are non-icteric; Airway and Nares are patent; Ears without external abnormalities. Mucosa is pink; Dentition is normal Neck: Supple; No JVD or Bruits; No thyromegaly; No lymphadenopathy Respiratory: Lungs are clear with no rales or wheezes. Respiratory effort is normal and symmetrical bilaterally; Good air movement bilaterally Heart: IRRR; Nl S1 and S2 2/6 aortic systolic murmur. 2/6 mitral regurgitation murmur. No crg Abdomen: NABS soft, non-tender, non-distended; no organomegaly; no obvious masses Extremities/Skin: Trace LE edema; Skin warm to touch and well perfused; skin discoloration is absent Neuro: sensation and motor function are grossly normal. Cranial Nerves are grossly intact Laboratory Tests: Reviewed Ronnie Troy MD DATE (more content not included)... Normal [facility] Cardiology Visit Reporton Cardiology Visit Report Normal [facility] 36on 11-09-2024 36 Records received given to Virginia Carreon for review Normal [facility] 36on 11-08-2024 36 We have the monitor just need Echo Normal [facility] 36 PC to pt requesting date of echo done at [facility] pt was unsure of the exact date but thought 11/03/24, I faxed an urgent request to [facility] fx [phone] for results. Pt states that he also thought he was to have a 2 wk monitor? Normal [facility] Echo Completeon 11-03-2024 Echo Complete Normal [facility] Echocardiogram study reportO rdered By: Vaughn Mcpherson on 11-03-2024 Study report [facility] [address] [place] [address] Echo Complete 11/03/24 1359 MR#: [id number] Acct: [id number] Name: NIKKO BARAJAS Rep #:[id number] : 1945 79 From: Vaughn Shah Attending Dr: LESLI JEFFERS Status : REG CLI Ordering Dr: LESLI JEFFERS Date: Location: CVS Sex: M C Admitted: Reason For Study Reason For Study: AFib Procedure This was a 2D Doppler, Color Flow transthoracic echocardiogram. Exam performed in department. Left Ventricle Normal LV size. The left ventricular ejection fraction is 35 %. There is moderate global hypokinesis of the left ventricle. Right Ventricle Normal RV size. Normal systolic function. Atria The left atrium is moderately enlarged. Normal right atrium. Mitral Valve There is moderate mitral annular calcification. Mild-Moderate (1-2+) eccentric mitral valve insufficiency. Tricuspid Valve Normal tricuspid valve. Mild to moderate (1-2+) tricuspid valve insufficiency. Pulmonary artery systolic pressure is 50 mmHg. Aortic Valve Trisinus/trileaflet aortic valve. Moderate focal aortic valve calcification. Peak aortic valve gradient 26 mmHg. Mean aortic valve gradient 15 mmHg. Pulmonic Valve Normal pulmonic valve. Great Vessels Normal aortic root. The pulmonary artery is normal size. Inferior vena cava collapse with respiration. Pericardium/Pleural No pericardial effusion. MMode/2D Measurements & Calculations LVIDd: 5.1 cm IVSd: 1.2 cm LVOT diam: 2.0 cm LVIDs: 3.9 cm LVPWd: 1.1 cm LVOT area: 3.2 cm2 RVDd: 4.3 cm FS: 23.3 % Ao root diam: 3.8 cm LAV(MOD-bp): 92.8 ml LVAd ap4: 36.3 cm2 LAV(MOD-bp) Indexed: 48.6 ml/m2 LVLd ap4: 8.2 cm LAV(MOD-sp2): 93.2 ml EDV(MOD-sp4): 133.2 ml LAV(MOD-sp4): 91.1 ml EDV(sp4-el): 136.1 ml LVAs ap4: 27.7 cm2 LVLs ap4: 7.4 cm ESV(MOD-sp4): 86.9 ml ESV(sp4-el): 88.7 ml EF(MOD-sp4): 34.8 % EF(sp4-el): 34.8 % SV(MOD-sp4): 46.3 ml SV(sp4-el): 47.4 ml Aortic Valve Planimetry: 0.79 cm2 SI(MOD-sp4): 24.3 ml/m2 LA A4 area: 25.9 cm2 LA dimension(2D): 5.7 cm RA A4area: 18.7 cm2 Doppler Measurements & Calculations MV E max umm: 93.1 cm/sec MV V2 max: 107.4 cm/sec Ao V2 max: 252.3 cm/sec MV max P.6 mmHg Ao max P.6 mmHg MV V2 mean: 53.2 cm/sec Ao V2 mean: 181.5 cm/sec MV mean P.4 mmHg Ao mean P.8 mmHg MV V2 VTI: 26.1 cm Ao V2 VTI: 53.1 cm AV (velocity ratio): 0.28 MVA(VTI): 1.9 cm2 JEROMY(I,D): 0.91 cm2 JEROMY(V,D): 0.81 cm2 LV V1 max: 63.1 cm/sec MR max umm: 559.1 cm/sec SV(LVOT): 48.3 ml LV V1 max P.6 mmHg MR max P.0 mmHg LV V1 mean P.87 mmHg MR mean umm: 417.4 cm/sec LV V1 mean: 43.3 cm/sec MR mean P.6 mmHg LV V1 VTI: 14.9 cm MR VTI: 183.6 cm PA V2 max: 87.0 cm/sec TR max umm: 343.7 cm/sec TR max P.3 mmHg ECHO/Echo Complete Interpretation Summary Normal LV size. The left ventricular ejection fraction is 35 %. The left atrium is moderately enlarged. There is moderate mitral annular calcification. Mild-Moderate (1-2+) eccentric mitral valve insufficiency. Pulmonary artery systolic pressure is 50 mmHg. Mean aortic valve gradient 15 mmHg. Moderate focal aortic valve calcification. Above may represent low-flow low gradient aortic stenosis. Ordering Physician: LESLI JEFFERS Referring Physician: LESLI JEFFERS Performed By: Escobar Pierson RCS 11/03/241828 Date _ Vaughn Mcpherson MD CC: Dr. Santosh Velazquez DO; LESLI JEFFERS ~ Date Dictated: 11/03/24 135 Date Transcribed: 11/03/241828 Title Specialist: Signed [facility] Work Phone: 36on 10-20-2024 36 In regards to the Transthoracic Echocardiogram that was ordered, spoke with patient, who stated that he already has an appointment scheduled for this test at an outside facility. Thank you, Central Scheduling [facility] PSA,Total- [employer] 08 PSA, DIAGNOSTIC 0.04 ng/mL Normal 0.00-4.00 [facility] Comment on above: Result Comment: This test was performed using the [employer] tPSAmethod. Measured values of a patient??sample can varydepending on the testing procedure used. PSA valuesdetermined on patient samples by different testingprocedures cannot be used interchangeably. If there is achange in PSA assays while monitoring therapy, sequentialtesting should be performed to confirm baseline values. Performed By: #### L [id number] ####[facility] [id number] [place], [address] Radiation Oncology Visiton 0 10-17-2024 Radiation Oncology Visit [facility] OUTSIDE CARDIOLOGY SCANon [facility] Progress Noteon 10-14-2024 Progress Note Echo ordered per Dr. Troy request --patient to have completed at [facility] OUTSIDE CARDIOLOGY SCANOrder ed By: Leatha Connell on 09-13-2024 [facility] Breast Limited Unilateralon 09-08-2024 Breast Limited Unilateral Normal [facility] DIAG MAMM W/CAD, BILATon DIAG MAMM W/CAD, BILAT [facility] Internal Medicine Office Vis iton 08-31-2024 Internal Medicine Office Visit Normal [facility] ECG 12 lead - CLINIC PERFORM EDon 08-16-2024 Atrial fibrillation with a controlled VR and a PVC Possible LVH Non Specific ST/T wave changes [facility] Office Visiton 08-16-2024 Follow-up visit [id number] Nikko Barajas 1945 M Date Provider Department Center 08/16/2024 [id number] WILKERSON [facility] None Family History Problem Relation Age of Onset Coronary artery disease Mother Stroke Father Cancer Brother Family Status - Relation Status Age at Mother Father Brother Level of Service:54455 NM OFFICE/OUTPATIENT NEW HIGH MDM 60 MINUTES Reason for Visit and Comments: Coronary Artery Disease [187] Atrial Fibrillation [80] Sleep Apnea [348] Hypertension [520529] Hyperlipidemia [182] Carotid Artery Disease [453] Congestive Heart Failure [127] - Systolic Hypothyroidism [143] Claudication [131] COPD [313] Normal [facility] Progress Noteon 08-16-2024 Progress Note [facility] Cardiology/Electroph ysiology New Patient Clinic Note Chief Complaint: Chief Complaint Patient presents with Coronary Artery Disease Atrial Fibrillation Sleep Apnea Hypertension Hyperlipidemia Carotid Artery Disease Congestive Heart Failure Systolic Hypothyroidism Claudication COPD History of Present Illness: Nikko Barajas is a 78 y.o. male referred here for the management of his atrial fibrillation. He is a pleasant 78-year-old man with a history of CAD status post stent to the LAD and circumflex in 2010 and a repeat PCI in March 2022 to the proximal LAD. In 2021 he had a left CEA and postop he had some A-fib for which she was put on amiodarone. At some point this was stopped because of abnormal PFTs. His LVEF had been preserved up until September 2023 by several echoes. He reports that he felt fine until the end of 2023 when he started experiencing more shortness of breath and fatigue with exertion. In March 2024 he presented to [facility] in A-fib with RVR and a newly depressed LVEF of 25%. He was rate controlled with metoprolol and given amiodarone, but not cardioverted. In May an echo showed a persistently low LVEF of 30% and he was cardioverted in June, but recurred within a few days. He was started on digoxin, and was also on Cardizem 120 mg daily in addition to metoprolol 100 mg twice a day He presents today feeling fairly well. He reports that he has never felt palpitation with his atrial fibrillation, but clearly felt that he became more SOB/GARVIN in the fall 2023 compared to his baseline. He reports that since starting digoxin his heart rates have been in the 70s to 90s. This is confirmed by his Kardia strips which he does almost every day and all show heart rates less than 100 at rest. He denies chest pain, SOB/GARVIN, or LE edema since starting the Lasix. He is active around the yard and can do all of his ADLs without symptoms An ECG today shows atrial fibrillation with a VR of ~80 bpm. An echo in May 2024 shows an LVEF of 30% with a severely enlarged LA (JOSEPH 75). The echo also shows moderately severe MR (3+, mild TR (PA P of 28 mmHg) and mild to moderate AoS. Assessment and Plan: 1. Persistent Atrial Fibrillation: As far as I can tell, he may have gone into persistent A-fib in late 2023 with a resultant low EF from rapid rates. However, now his heart rates appear well-controlled, and a tachycardia mediated cardiomyopathy could not be explained by these rates. I would recommend getting a 2-week Holter monitor and a repeat echo in October. This can be done in [place]. I will see him after that. If his LVEF remains depressed, despite well-controlled heart rates, then we may need to look into other causes of LV dysfunction such as worsening CAD or his significant mitral regurgitation. For today, I increased his Cardizem to 180 mg daily despite his low LVEF. My hope is that with better rate control his LVEF will improve further into the near normal/normal range. If his 2-week Holter shows poorly controlled heart rates, then may be a PVI would be reasonable, though the success rate is much lower given his severely enlarged LA. I will see him in November after those tests are done in [place] 2. Systolic Heart Failure: As above, likely tachycardia mediated, but it is possible that his mitral regurgitation is primary and the cause of his LV dysfunction. 3. CAD: This appears silent. No need for further workup at this point. Past Medical History: Medical History[1] Past Surgical History Surgical History[2] Family History Family History[3] Social History Social History[4] Medications: Reviewed Allergies: Reviewed Review of Systems: All other systems were reviewed and are negative other than as noted in the HPI. Physical Examination: Vitals: Blood pressure 122/60, pulse 83, height 5' 9 (1.753 m), weight 157 lb (71.2 kg), SpO2 99%. Constitutional: Appears well kept and looks stated age; in NAD Psychiatric: A &O x3 Mood is pleasant; Affect is appropriate Musculoskeletal: Normocephalic; no joint swelling; gait steady; 5/5 muscle strength bilaterally in upper and lower extremities; no clubbing or cyanosis HEENT: Pupils are equal and round; Conjunctiva are not injected; Sclera are non-icteric; Airway and Nares are patent; Ears without external abnormalities. Mucosa is pink; Dentition is normal Neck: Supple; No JVD or Bruits; No thyromegaly; No lymphadenopathy Respiratory: Lungs are clear with no rales or wheezes. Respiratory effort is normal and symmetrical bilaterally; Good air movement bilaterally Heart: IRRR; Nl S1 and S2 2/6 aortic systolic murmur. 2/6 mitral regurgitation murmur. No crg Abdomen: NABS soft, non-tender, non-distended; no organomegaly; no obvious masses Extremities/Skin: Trace LE edema; Skin warm to touch and well perfused; skin discoloration is absent Neuro: sensation (more content not included)... Normal [facility] Radiation Oncology Visiton 0 08-16-2024 Radiation Oncology Visit Normal [facility] Cardiology Visit Reporton Cardiology Visit Report Normal [facility] No Panel InformationOrdered By: Branden Jasso on 07-18-2024 [facility] Cardiac Rehab [address] [place] [address] CR - Individual Treatment Plan MR#: [id number] Acct: [id number] Name: BARAJASNIKKO HERNANDES Chandler Rep #:[id number] : 1945 78 From: Branden Julien BS, RVT PCP: Dr. Santosh Velazquez, DO DOS: 08/07 Exercise - Initial Assessment Physician Prescribed Exercise Modalities: Nader Ocasio AD-7 and SciFit Stepper Nutrition - Initial Assessment Weight Mgt (Other Care) Height: 5 ft 9 in Weight:: 158 lb 8 oz BMI: 23.3 Core - Initial Assessment Hypertension Resting Blood Pressure:: 102/52 [place] [employer] Hypertension Guidelines Psychosocial - Initial Assess Target Goals Target Goals Referral to Behavioral Health PS - Interventions: Yes: Attend Stress Management Classes Patient Health Questionnaire PHQ-9 Screening 60-Day Re-eval Assessment: 1. Little interest or pleasure in doing things: Not at all 2. Feeling down, depressed, or hopeless: Not at all 3. Trouble falling or staying asleep, or sleeping too much: Not at all 4. Feeling tired or having little energy: Several days 5. Poor appetite or overeating: Not at all 6. Feeling bad about yourself -- or that you are a failure or have let yourself or your family down: Not at all 7. Trouble concentrating on things, such as reading the newspaper or watching television: Not at all 8. Moving or speaking so slowly that other people could have noticed. Or the opposite - being so fidgety or restless that you have been moving around a lot more than usual: Not at all 9. Thoughts that you would be better off , or of hurting yourself in some way: Not at all How difficult have these problems made it for you to do your work, take care of things at home, or get along with other people?: Not difficult at all Total Score: 1 Self-Efficacy 6-Item Scale 60-Day Re-eval Assessment: We would like to know how confident you are in doing certain activities. Please select your confidence level for: Fatigue Select Number: 9 Physical Discomfort or Pain Select Number: 9 Emotional Distress Select Number: 9 Other Symptoms or Health Problems Select Number: 9 Different Tasks and Activities Select Number: 9 Medication Select Number: 8 Total Score:: 8 Nutrition Survey Nutrition Survey Instructions Scoring Instructions Exercise - 30-day Assessment Physician Prescribed Exercise Modalities: Schwinn Airdyne AD-7 and SciFit Stepper Exercise - 60-day Assessment Visit Date of Eval: 07/14/24 Session #:: 17 Physician Prescribed Exercise Modalities: Schwinn Airdyne AD-7 and SciFit Stepper Frequency: 3x/week for 12 weeks [36 sessions] Intensity: 60-80% of age predicted maximum heart rate reserve Duration: 30 - 45 minutes Current METSs:: 3.6 Target Heart Rate:: 86-108 Current RPE:: 12-12.5 Maximum Excercise HR:: 127 Resting Blood Pressure: 120/50 Maximum Exercise Blood Pressure: 110/52 EKG Type: A-fib w/ occas PVC, rate controlled Outcomes & Goals Goals:: Verbalizes understanding of THR, RPE & goal METS by session 6, Documentsin home exercise log/reports 30 min aerobic 5 day/wk by DC, Demonstrates accurate pulse taking by DC and Other additional outcome/goals: see below Intervention & Plan Exercise Program Goals: Instruct on personal THR & RPE, Instruct on MET level & personal MET goal, Show patient to take own pulse /validate performance until accurate, Instruct on home exercise and Other additional plan/int Physical Activity Home Exercise Physical Activity - Home Exercise: Safe Exercise, Warm-up, Self-monitoring, Cool-Down, Home Exercise > 30 min Daily and Sitting Time <3 hours/daily Outcomes & Goals Outcomes/Goals: Demonstrates correct Warm-up/exercise Cool-Down (S3) if = 2.5 METs, Verbalizes symptoms of exercise intolerance by Session 3 (S3), Demonstratesafe equipment use (S3) & follows exercise prescrition (6) and Other: See below Intervention & Plan Plan/Intervention: Instruct warm-up & cool-down if exercising at > 2 METs, Instruct on symptoms of exercise intolerance & actions to take, Instruct & monitor on saf, Assess intial functional capacity & safety risk and Other See below 30-day Reassessments 30 day Reassessments:: Progressing Reassessment Notes & Comments:: Proper warm up and cool down demonstrated and explained to pt. Pt is able to return demonstration in his daily sessions. Exercise - 90-day Assessment Physician Prescribed Exercise Modalities: Schwinn Airdyne AD-7 and SciFit Stepper Exercise - Final/Discharge Physician Prescribed Exercise Modalities: Schwinn Airdyne AD-7 and SciFit Stepper Nutrition - 30-Day Assessment Weight Mgt (Other Care) Height: 5 ft 9 in Weight:: 158 lb 8 oz BMI: 23.3 Nutrition - 60-Day Assessment Program Goals Nutrition Program Goals Patient has diagnosis of Hyperlipidemia (ICD E78)?: Yes Visit Date of Eval: 07/14/24 Session #:: 17 Cholesterol/Lipids (Other Core Measures) Determine presence & major risk factors that modify LDL goal: Cigarette smoking,Hypertension or hypertensive medication, Low HDL cholesterol <40 mg/dL*, Family (more content not included)... [facility] PSA,Total- Diagnosticon 05-0 PSA, DIAGNOSTIC 0.06 ng/mL Normal 0.00-4.00 [facility] Comment on above: Result Comment: This test was performed using the [employer] tPSAmethod. Measured values of a patient??sample can varydepending on the testing procedure used. PSA valuesdetermined on patient samples by different testingprocedures cannot be used interchangeably. If there is achange in PSA assays while monitoring therapy, sequentialtesting should be performed to confirm baseline values. Performed By: #### L 501.9940 ####[facility] [address] [place], [address] 12 [place] [facility]24 12 Lead EKG performed by [facility] Normal [facility] Lower Ext Art Exam w/o Exerc evin 07-11-2024 Lower Ext Art Exam w/o Exercis Normal [facility] Procedure Reporton Procedure Report Normal [facility] Procedure Report Normal [facility] 12 Lead EKG performed by [facility] on 06-30-2024 12 Lead EKG performed by [facility] Normal [facility] Cardiology Visit Reporton Cardiology Visit Report Normal [facility] Anion gap in Serum or Plasma Ordered By: Jelly Rogers on 06-08-2024 Anion gap [Moles/Vol] 10 mmol/L 5- [facility] BUN/creatinine ratioOrdered By: Jelly Rogers on 06-08-2024 Urea nitrogen/Creatinine [Mass ratio] 40.4 mg/mg High - [facility] Basic Metabolic Profile (BMP )on 06-08-2024 BUN/CRE 40.4 RATIO High 01-02 [facility] Comment on above: Performed By: #### L 500.2500 ####[facility] [address] [place], [address] Calcium [Mass/Vol] 9.5 mg/dL Normal 7.6-11.0 [facility] Comment on above: Performed By: #### L 500.2500 ####[facility] [address] [place], [address] Chloride [Moles/Vol] 105 mmol/L Normal 98-108 [facility] Comment on above: Performed By: #### L 500.2500 ####[facility] [address] [place], [address] CO2 [Moles/Vol] 29.6 mmol/L Normal 21.0-32.0 [facility] Comment on above: Performed By: #### L 500.2500 ####[facility] [address] [place], [address] Creatinine [Mass/Vol] 0.60 mg/dL Low 0.70-1.20 [facility] Comment on above: Performed By: #### L 500.2500 ####[facility] [address] [place], [address] GAP 10 Normal 5-15 [facility] Comment on above: Performed By: #### L 500.2500 ####[facility] [address] [place], [address] GFR/1.73 sq M.predicted among non-blacks MDRD (S/P/Bld) [Vol rate/Area] 100 mL/min/{1.73_m2} Normal >60 [facility] Comment on above: Result Comment: mL/m in/1.73m2 CKD-EPI Creatinine Equation (2020) Performed By: #### L 500.2500 ####[facility] [address] [place], [address] Glucose [Mass/Vol] 113 mg/dL High 70-99 [facility] Comment on above: Performed By: #### L 500.2500 ####[facility] [address] [place], [address] Potassium [Moles/Vol] 3.8 mmol/L Normal 3.3-5.1 [facility] Comment on above: Performed By: #### L 500.2500 ####[facility] [address] [place], [address] Sodium [Moles/Vol] 145 mmol/L Normal 133-145 [facility] Comment on above: Performed By: #### L 500.2500 ####[facility] [address] [place], [address] Urea nitrogen [Mass/Vol] 24 mg/dL High 4-19 [facility] Comment on above: Performed By: #### L 500.2500 ####[facility] [address] [place], [address] Carbon dioxide, total [Moles /volume] in Central venous bloodOrdered By: Jelly Rogers on 06-08-2024 CO2 [Moles/Vol] 29.6 mmol/L 21.0-32.0 [facility] Chloride assayOrdered By: Carla Rogers on 06-08-2024 Chloride [Moles/Vol] 105 mmol/L 98-108 [facility] GFR/1.73 sq M.predicted brielle g non-blacks MDRD (S/P/Bld) [Vol rate/Area]Ordered By: Jelly Rogers on 06-08-2024 Estimated GFR (MDRD) Non-Af Amer 100 >60 [facility] Comment on above: mL/min/1.73m2 CKD-EP I Creatinine Equation (2020) Glomerular filtration rate ( GFR) estimation/1.73 sq m using serum, plasma, or whole bOrdered By: Jelly Rogers on 06-08-2024 GFR/1.73 sq M.predicted among non-blacks MDRD (S/P/Bld) [Vol rate/Area] 100 mL/min/{1.73_m2} >60 [facility] Comment on above: mL/min/1.73m2 CKD-EP I Creatinine Equation (2020) Potassium (Unsp spec) [Mass/ Vol]Ordered By: Jelly Rogers on 06-08-2024 Potassium [Moles/Vol] 3.8 mmol/L 3.3-5.1 [facility] Potassium measurement (mass/ volume)Ordered By: Jelly Rogers on 06-08-2024 Potassium (Unsp spec) [Mass/Vol] 3.8 mmol/L 3.3-5.1 [facility] Serum creatinine measurement (mass/volume)Ordered By: Jelly Rogers on 06-08-2024 Creatinine [Mass/Vol] 0.60 mg/dL Low 0.70-1.20 [facility] Serum glucose measurement (m ass/volume)Ordered By: Jelly Rogers on 06-08-2024 Glucose [Mass/Vol] 113 mg/dL High 70-99 [facility] Serum or plasma calcium lucio urement (mass/volume)Ordered By: Jelly Rogers on 06-08-2024 Calcium [Mass/Vol] 9.5 mg/dL 7.6-11.0 [facility] Serum or plasma urea nitroge n measurement (mass/volume)Ordered By: Jelly Rogers on 06-08-2024 Urea nitrogen [Mass/Vol] 24 mg/dL High 4-19 [facility] Sodium levelOrdered By: Rikki Rogers on 06-08-2024 Sodium [Moles/Vol] 145 mmol/L 133-145 [facility] Carotid Duplex Ultrasoundon 06-07-2024 Carotid Duplex Ultrasound Normal [facility] Duplex ultrasound of carotid artery reportOrdered By: Blaed Dahl on 06-07-2024 Study report [facility] Cardiovascular Services [address] [place] [address] Carotid Duplex Ultrasound 06/07/24 1254 MR#: [id number] Acct: [id number] Name: NIKKO BARAJAS Rep #:[id number] : 1945 78 From: Blade Shah Attending Dr: DAYANARA Sanchez Status: REG CLI Ordering Dr: Jelly Rogers PA Date: 06/07/24 Location: CVS Sex: M C Admitted: Reason For Study Reason For Study: S/P bilateral CEA Rt. Velocities/BP Lt. Velocities/BP Prox CCA 48.5/11.6 cm/sec. Prox CCA 115.6/30.2 cm/sec. Mid CCA 53.2/15.4 cm/sec. Mid CCA 154.2/39.8 cm/sec. Dist CCA 58.9/17.3 cm/sec. Dist CCA 132.4/29.2 cm/sec. Prox ICA 63/10.2 cm/sec. Prox ICA 51.9/10.2 cm/sec. Mid ICA 71.6/20 cm/sec. Mid ICA 75.3/24.9 cm/sec. Dist ICA 82.6/29.8 cm/sec. Dist ICA 67.9/20 cm/sec. Rt. ICA/CCA = 1.55. Lt. ICA/CCA = 0.49. Prox ECA 113.3 cm/sec. Prox ECA 81.4/10.2 cm/sec. Rt. Vert. 64.1/16.8 cm/sec. Lt. Vert. 54.2/13.5 cm/sec. Right Extracranial There is heterogeneous, irregular atherosclerotic plaque noted in the right common carotid artery. There is intimal thickening but no significant atherosclerotic plaque noted in the right internalcarotid artery. There is intimal thickening but no significant atherosclerotic plaque noted in the right externalcarotid artery. Antegrade flow is noted in the right vertebral artery. Left Extracranial There is heterogeneous, irregular atherosclerotic plaque noted in the left common carotid artery. There is homogeneous, smooth atherosclerotic plaque noted in the left internal carotid artery. There is intimal thickening but no significant atherosclerotic plaque noted in the left external carotid artery. Antegrade flowis noted in the left vertebral artery. Procedure Carotid Duplex 69926. This is a Carotid Duplex examination using B-mode, color flow and specral Doppler. Exam performed in department. VL/Carotid Duplex Ultrasound Interpretation Summary Normal right extracranial internal carotid. Mild (<50%) stenosis left extracranial internal carotid. Patent and antegrade vertebrals bilaterally. Ordering Physician: Jelly Rogers Referring Physician: Neo Velazquez M.D. Performed By: Jeanine Reid Gerardo 06/07/24 1531 Date _ Blade Dahl MD CC: Dr. Santosh Velazquez, DO; DAYANARA Sanchez ~ Date Dictated: 06/07/24 1254 Date Transcribed: 06/07/24 1531 Title Specialist: Signed [facility] Work Phone: Echo, Limited Studyon 2024 Echo, Limited Study Normal [facility] Limited echocardiogram repor tOrdered By: Brendan Lloyd on 06-07-2024 Study report [facility] Cardiovascular Services [address] [place] [address] Echo, Limited Study 06/07/24 1324 MR#: [id number] Acct: [id number] Name: NIKKO BARAJAS Rep #:[id number] : 1945 78 From: Brendan Lloyd MD Attending Dr: DAYANARA Sanchez Status: REG CLI Ordering Dr: Jelly Rogers Date: 06/07/24 Location: CVS Sex: M C Admitted: Reason For Study Reason For Study: AFib/FLutter, Re Evaluate EF Procedure This was a limited 2D transthoracic echocardiogram. Exam performed in department. Left Ventricle Normal LV size. Moderately severe global left ventricular systolic dysfunction. The estimated ejection fraction is 30 %. Right Ventricle Normal RV size. Normal systolic function. Atria The left atrium is severely enlarged. The right atrium is moderately enlarged. Mitral Valve There is Moderate focal posterior mitral annular calcification. Moderately severe (3+) mitral valve insufficiency. Tricuspid Valve Normal tricuspid valve. Mild (1+) tricuspid valve insufficiency. Pulmonary artery systolic pressure is 28 mmHg. Aortic Valve Trisinus/trileaflet aortic valve. Moderate focal aortic valve calcification. Mild to moderate aortic stenosis. Trivial aortic valve insufficiency. Pulmonic Valve Normal pulmonic valve. Mild (1+) pulmonic valve insufficiency. Great Vessels Normal sized aortic root. Pericardium/Pleural No pericardial effusion. MMode/2D Measurements & Calculations LVIDd: 5.2 cm IVSd: 1.2 cm LVOT diam: 2.1 cm LVIDs: 4.3 cm LVPWd: 1.1 cm LVOT area: 3.3 cm2 FS: 17.7 % LA dimension: 5.3 cm LAV(MOD-bp): 75.1 ml LVAd ap4: 34.9 cm2 LAV(MOD-bp) Indexed: 39.9 ml/m2 LVLd ap4: 8.5 cm LAV(MOD-sp2): 82.3 ml EDV(MOD-sp4): 120.1 ml LAV(MOD-sp4): 62.4 ml EDV(sp4-el): 122.0 ml LVAs ap4: 28.6 cm2 LVLs ap4: 7.9 cm ESV(MOD-sp4): 86.9 ml ESV(sp4-el): 88.1 ml EF(MOD-sp4): 27.7 % EF(sp4-el): 27.8 % SV(MOD-sp4): 33.2 ml SV(sp4-el): 33.9 ml Aortic Valve Planimetry: 1.1 cm2 SI(MOD-sp4): 17.6 ml/m2 LA A4 area: 19.8 cm2 RA A4 area: 16.6 cm2 Doppler Measurements & Calculations Ao V2 max: 253.6 cm/sec LV V1 max: 89.4 cm/sec MR max umm: 524.6 cm/sec Ao max P.7 mmHg LV V1 max P.2 mmHg MR max P.1 mmHg Ao V2 mean: 177.4 cm/sec LV V1 mean P.8 mmHg MR mean umm: 398.1 cm/sec Ao mean P.2 mmHg LV V1 mean: 63.4 cm/sec MR mean P.3 mmHg Ao V2 VTI: 47.4 cm LV V1 VTI: 16.0 cm MR VTI: 143.8 cm AV (velocity ratio): 0.34 JEROMY(I,D): 1.1 cm2 JEROMY(V,D): 1.2 cm2 SV(LVOT): 52.9 ml TR max umm: 249.6 cm/sec TR max P.9 mmHg ECHO/Echo, Limited Study Interpretation Summary The estimated ejection fraction is 30 %. Moderately severe global left ventricular systolic dysfunction. The left atrium is severely enlarged. The right atrium is moderately enlarged. There is Moderate focal posterior mitral annular calcification. Moderately severe (3+) mitral valve insufficiency. Mild to moderate aortic stenosis. Ordering Physician: Jelly Rogers Referring Physician: Jelly Rogers Performed By: Escobar Pierson RCS 06/07/24 2884 Date _ Brendan Lloyd MD CC: Dr. Santosh Velazquez DO; DAYANARA Sanchez ~ Date Dictated: 06/07/24 1324 Date Transcribed: 06/07/24 4361 Title Specialist: Signed [facility] Work Phone: Absolute lymphocyte countOrd ered By: Jelly Rogers on 05-26-2024 Lymphocytes Auto (Unsp spec) [#/Vol] 1.08 10*3/uL 0.83-4.51 [facility] Absolute neutrophil countOrd ered By: Jelly Rogers on 05-26-2024 Neutrophils (Bld) [#/Vol] 6.5 10*3/uL 2.0-7.7 [facility] Anion gap in Serum or Plasma Ordered By: Jelly Rogers on 05-26-2024 Anion gap [Moles/Vol] 12 mmol/L 5-15 [facility] Automated lymphocyte count a s percentage of total leukocytesOrdered By: Jelly Rogers on 05-26-2024 Lymphocytes/100 WBC Auto (Unsp spec) 12.7 % Low 19-41 [facility] BUN/creatinine ratioOrdered By: Jelly Rogers on 05-26-2024 Urea nitrogen/Creatinine [Mass ratio] 22.6 mg/mg High 10-20 [facility] Basic Metabolic Profile (BMP )on 05-26-2024 BUN/CRE 22.6 RATIO High 10-20 [facility] Comment on above: Order Comment: Reaso n for Exam: Tachycardia Performed By: #### L 501.9520, L500.2500, L100.0100, L503.7505, L501.5200 ####[facility] [address] [place], [address] Calcium [Mass/Vol] 9.2 mg/dL Normal 7.6-11.0 [facility] Comment on above: Order Comment: Reaso n for Exam: Tachycardia Performed By: #### L 501.9520, L500.2500, L100.0100, L503.7505, L501.5200 ####[facility] [address] [place], [address] Chloride [Moles/Vol] 105 mmol/L Normal 98-108 [facility] Comment on above: Order Comment: Reaso n for Exam: Tachycardia Performed By: #### L 501.9520, L500.2500, L100.0100, L503.7505, L501.5200 ####[facility] [address] [place], [address] CO2 [Moles/Vol] 24.5 mmol/L Normal 21.0-32.0 [facility] Comment on above: Order Comment: Reaso n for Exam: Tachycardia Performed By: #### L 501.9520, L500.2500, L100.0100, L503.7505, L501.5200 ####[facility] [address] [place], [address] Creatinine [Mass/Vol] 0.73 mg/dL Normal 0.70-1.20 [facility] Comment on above: Order Comment: Reaso n for Exam: Tachycardia Performed By: #### L 501.9520, L500.2500, L100.0100, L503.7505, L501.5200 ####[facility] [address] [place], [address] GAP 12 Normal 5-15 [facility] Comment on above: Order Comment: Reaso n for Exam: Tachycardia Performed By: #### L 501.9520, L500.2500, L100.0100, L503.7505, L501.5200 ####[facility] [address] [place], [address] GFR/1.73 sq M.predicted among non-blacks MDRD (S/P/Bld) [Vol rate/Area] 94 mL/min/{1.73_m2} Normal >60 [facility] Comment on above: Order Comment: Reaso n for Exam: Tachycardia Result Comment: mL/m in/1.73m2 CKD-EPI Creatinine Equation (2020) Performed By: #### L 501.9520, L500.2500, L100.0100, L503.7505, L501.5200 ####[facility] [address] [place], [address] Glucose [Mass/Vol] 111 mg/dL High 70-99 [facility] Comment on above: Order Comment: Reaso n for Exam: Tachycardia Performed By: #### L 501.9520, L500.2500, L100.0100, L503.7505, L501.5200 ####[facility] [address] [place], [address] Potassium [Moles/Vol] 3.9 mmol/L Normal 3.3-5.1 [facility] Comment on above: Order Comment: Reaso n for Exam: Tachycardia Performed By: #### L 501.9520, L500.2500, L100.0100, L503.7505, L501.5200 ####[facility] [address] [place], [address] Sodium [Moles/Vol] 142 mmol/L Normal 133-145 [facility] Comment on above: Order Comment: Reaso n for Exam: Tachycardia Performed By: #### L 501.9520, L500.2500, L100.0100, L503.7505, L501.5200 ####[facility] [address] [place], [address] Urea nitrogen [Mass/Vol] 17 mg/dL Normal 4-19 [facility] Comment on above: Order Comment: Reaso n for Exam: Tachycardia Performed By: #### L 501.9520, L500.2500, L100.0100, L503.7505, L501.5200 ####[facility] [address] [place], [address] Basophil percentageOrdered B y: Jelly Rogers on 05-26-2024 Basophils/100 WBC (Bld) 0.5 % 0-1 [facility] CBC W/Diff, Automatedon 05-14 Absolute Lymph 1.08 X10 3/uL Normal 0.83-4.51 [facility] Comment on above: Performed By: #### L 501.9520, L500.2500, L100.0100, L503.7505, L501.5200 ####[facility] [address] [place], [address] Absolute Neut 6.5 X10 3/uL Normal 2.0-7.7 [facility] Comment on above: Performed By: #### L 501.9520, L500.2500, L100.0100, L503.7505, L501.5200 ####[facility] [address] [place], [address] Basophils/100 WBC (Bld) 0.5 % Normal 0-1 [facility] Comment on above: Performed By: #### L 501.9520, L500.2500, L100.0100, L503.7505, L501.5200 ####[facility] [address] [place], [address] Eosinophils/100 WBC (Bld) 2.1 % Normal 0-5 [facility] Comment on above: Performed By: #### L 501.9520, L500.2500, L100.0100, L503.7505, L501.5200 ####[facility] [address] [place], [address] Erythrocyte distribution width (RBC) [Ratio] 17.0 % High 11.6-14.6 [facility] Comment on above: Performed By: #### L 501.9520, L500.2500, L100.0100, L503.7505, L501.5200 ####[facility] [address] [place], [address] Hematocrit (Bld) [Volume fraction] 33.1 % Low 40-54 [facility] Comment on above: Performed By: #### L 501.9520, L500.2500, L100.0100, L503.7505, L501.5200 ####[facility] [address] [place], [address] Hemoglobin (Bld) [Mass/Vol] 10.7 g/dL Low 13.0-16.5 [facility] Comment on above: Performed By: #### L 501.9520, L500.2500, L100.0100, L503.7505, L501.5200 ####[facility] [address] [place], [address] IG% 0.500 Normal 0.0-0.9 [facility] Comment on above: Result Comment: IG% - Immature Granulocytes (promyelocytes, myelocytes andmetamyelocytes) > 1% indicates that a LEFT SHIFT is Present. Performed By: #### L 501.9520, L500.2500, L100.0100, L503.7505, L501.5200 ####[facility] [address] [place], [address] Lymphocytes/100 WBC (Bld) 12.7 % Low 19-41 [facility] Comment on above: Performed By: #### L 501.9520, L500.2500, L100.0100, L503.7505, L501.5200 ####[facility] [address] [place], [address] MCH (RBC) [Entitic mass] 31.0 pg Normal 27.0-32.0 [facility] Comment on above: Performed By: #### L 501.9520, L500.2500, L100.0100, L503.7505, L501.5200 ####[facility] [address] [place], [address] MCHC (RBC) [Mass/Vol] 32.3 g/dL Normal 32-36 [facility] Comment on above: Performed By: #### L 501.9520, L500.2500, L100.0100, L503.7505, L501.5200 ####[facility] [address] [place], [address] MCV (RBC) [Entitic vol] 95.9 fL High 80-94 [facility] Comment on above: Performed By: #### L 501.9520, L500.2500, L100.0100, L503.7505, L501.5200 ####[facility] [address] [place], [address] Monocytes/100 WBC (Bld) 8.5 % Normal 0-10 [facility] Comment on above: Performed By: #### L 501.9520, L500.2500, L100.0100, L503.7505, L501.5200 ####[facility] [address] [place], [address] Neutrophils/100 WBC (Bld) 75.7 % High 47-70 [facility] Comment on above: Performed By: #### L 501.9520, L500.2500, L100.0100, L503.7505, L501.5200 ####[facility] [address] [place], [address] Nucleated RBC (Bld) [#/Vol] 0 10*3/uL Normal 0-5 [facility] Comment on above: Performed By: #### L 501.9520, L500.2500, L100.0100, L503.7505, L501.5200 ####[facility] [address] [place], [address] Platelet mean volume (Bld) [Entitic vol] 11.0 fL Normal 6.2-12.0 [facility] Comment on above: Performed By: #### L 501.9520, L500.2500, L100.0100, L503.7505, L501.5200 ####[facility] [address] [place], [address] Platelets (Bld) [#/Vol] 249 10*3/uL Normal 150-450 [facility] Comment on above: Performed By: #### L 501.9520, L500.2500, L100.0100, L503.7505, L501.5200 ####[facility] [address] [place], [address] RBC (Bld) [#/Vol] 3.45 10*6/uL Low 4.6-6.2 [facility] Comment on above: Performed By: #### L 501.9520, L500.2500, L100.0100, L503.7505, L501.5200 ####[facility] [address] [place], [address] RDW SD 59.5 fl High 35.1-43.9 [facility] Comment on above: Performed By: #### L 501.9520, L500.2500, L100.0100, L503.7505, L501.5200 ####[facility] [address] [place], [address] WBC (Bld) [#/Vol] 8.5 10*3/uL Normal 4.4-11.0 [facility] Comment on above: Performed By: #### L 501.9520, L500.2500, L100.0100, L503.7505, L501.5200 ####[facility] [address] [place], [address] Carbon dioxide, total [Moles /volume] in Central venous bloodOrdered By: Jelly Rogers on 05-26-2024 CO2 [Moles/Vol] 24.5 mmol/L 21.0-32.0 [facility] Chloride assayOrdered By: Carla Rogers on 05-26-2024 Chloride [Moles/Vol] 105 mmol/L 98-108 [facility] Eosinophil percentageOrdered By: Jelly Rogers on 05-26-2024 Eosinophils/100 WBC (Bld) 2.1 % 0-5 [facility] Erythrocyte distribution wid th ratioOrdered By: Jelly Rogers on 05-26-2024 Erythrocyte distribution width (RBC) [Ratio] 17.0 % High 11.6-14.6 [facility] Erythrocyte distribution wid th standard deviationOrdered By: Jelly Rogers on 05-26-2024 Erythrocyte distribution width (RBC) [Entitic vol] 59.5 fL High 35.1-43.9 [facility] Erythrocyte distribution width (RBC) [Ratio] 59.5 fl High 35.1-43.9 [facility] GFR/1.73 sq M.predicted brielle g non-blacks MDRD (S/P/Bld) [Vol rate/Area]Ordered By: Jelly Rogers on 05-26-2024 Estimated GFR (MDRD) Non-Af Amer 94 >60 [facility] Comment on above: mL/min/1.73m2 CKD-EP I Creatinine Equation (2020) Glomerular filtration rate ( GFR) estimation/1.73 sq m using serum, plasma, or whole bOrdered By: Jelly Rogers on 05-26-2024 GFR/1.73 sq M.predicted among non-blacks MDRD (S/P/Bld) [Vol rate/Area] 94 mL/min/{1.73_m2} >60 [facility] Comment on above: mL/min/1.73m2 CKD-EP I Creatinine Equation (2020) Hematocrit Auto (Bld) [Volum e fraction]Ordered By: Jelly Rogers on 05-26-2024 Hematocrit (Bld) [Volume fraction] 33.1 % Low 40-54 [facility] Hemoglobin measurementOrdere d By: Jelly Rogers on 05-26-2024 Hemoglobin (Bld) [Mass/Vol] 10.7 g/dL Low 13.0-16.5 [facility] Immature granulocytes/100 WB C Auto (Bld)Ordered By: Jelly Rogers on 05-26-2024 Immature granulocytes/100 WBC (Bld) 0.500 % 0.0-0.9 [facility] Comment on above: IG% - Immature Granu locytes (promyelocytes, myelocytes and metamyelocytes) > 1% indicates that a LEFT SHIFT is Present. L503.7505on 05-26-2024 Natriuretic peptide B (Bld) [Mass/Vol] 8777 pg/mL High <=1800 [facility] Comment on above: Order Comment: Reaso n for Exam: Tachycardia Result Comment: Hear t Failure Unlikely: < 300 pg/mLHeart Failure Likely< 50 Years: > 450 pg/mL50-75 Years: > 900 pg/mL>75 Years: > 1800 pg/mL Performed By: #### L 501.9520, L500.2500, L100.0100, L503.7505, L501.5200 ####[facility] [address] [place], [place], [id number] Laboratory - Chemistry and C hemistry - challengeOrdered By: Jelly Rogers on 05-26-2024 Natriuretic peptide B (Bld) [Mass/Vol] 8777 pg/mL High <1800 [facility] Comment on above: Heart Failure Unlike ly: < 300 pg/mLHeart Failure Likely< 50 Years: > 450 pg/mL50-75 Years: > 900 pg/mL>75 Years: > 1800 pg/mL Lymphocytes Auto (Unsp spec) [#/Vol]Ordered By: Jelly Rogers on 05-26-2024 Lymphocytes (Bld) [#/Vol] 1.08 10*3/uL 0.83-4.51 [facility] Lymphocytes/100 WBC Auto (Un sp spec)Ordered By: Jelly Rogers on 05-26-2024 Lymphocytes/100 WBC (Bld) 12.7 % Low 19-41 [facility] MCV (mean corpuscular volume ) determinationOrdered By: Jelly Rogers on 05-26-2024 MCV (RBC) [Entitic vol] 95.9 fL High 80-94 [facility] Magnesiumon 05-26-2024 Magnesium [Mass/Vol] 1.9 mg/dL Normal 1.5-2.2 [facility] Comment on above: Order Comment: Reaso n for Exam: Tachycardia Performed By: #### L 501.9520, L500.2500, L100.0100, L503.7505, L501.5200 ####[facility] [address] [place], [address] Magnesium (Unsp spec) [Mass/ Vol]Ordered By: Jelly Rogers on 05-26-2024 Magnesium [Mass/Vol] 1.9 mg/dL 1.5-2.2 [facility] Magnesium measurement (mass/ volume)Ordered By: Jelly Rogers on 05-26-2024 Magnesium (Unsp spec) [Mass/Vol] 1.9 mg/dL 1.5-2.2 [facility] Mean corpuscular hemoglobin (MCH) determinationOrdered By: Jelly Rogers on 05-26-2024 MCH (RBC) [Entitic mass] 31.0 pg 27.0-32.0 [facility] Mean corpuscular hemoglobin concentration (MCHC) determinationOrdered By: Jelly Rogers on 05-26-2024 MCHC (RBC) [Mass/Vol] 32.3 g/dL 32-36 [facility] Mean platelet volume determi nationOrdered By: Jelly Rogers on 05-26-2024 Platelet mean volume (Bld) [Entitic vol] 11.0 fL 6.2-12.0 [facility] Monocyte percentageOrdered B y: Jelly Rogers on 05-26-2024 Monocytes/100 WBC (Bld) 8.5 % 0-10 [facility] Neutrophil percentageOrdered By: Jelly Rogers on 05-26-2024 Neutrophils/100 WBC (Bld) 75.7 % High 47-70 [facility] Nucleated red blood cell per centageOrdered By: Jelly Rogers on 05-26-2024 Nucleated RBC/100 WBC (Bld) [Ratio] 0 % 0-5 [facility] Platelet countOrdered By: Carla Rogers on 05-26-2024 Platelets (Bld) [#/Vol] 249 10*3/uL 150-450 [facility] Potassium (Unsp spec) [Mass/ Vol]Ordered By: Jelly Rogers on 05-26-2024 Potassium [Moles/Vol] 3.9 mmol/L 3.3-5.1 [facility] Potassium measurement (mass/ volume)Ordered By: Jelly Rgoers on 05-26-2024 Potassium (Unsp spec) [Mass/Vol] 3.9 mmol/L 3.3-5.1 [facility] RBC Auto (Bld) [#/Vol]Ordere d By: Jelly Rogers on 05-26-2024 RBC (Bld) [#/Vol] 3.45 10*6/uL Low 4.6-6.2 [facility] Serum creatinine measurement (mass/volume)Ordered By: Jelly Rogers on 05-26-2024 Creatinine [Mass/Vol] 0.73 mg/dL 0.70-1.20 [facility] Serum glucose measurement (m ass/volume)Ordered By: Jelly Rogers on 05-26-2024 Glucose [Mass/Vol] 111 mg/dL High 70-99 [facility] Serum or plasma calcium lucio urement (mass/volume)Ordered By: Jelly Rogers on 05-26-2024 Calcium [Mass/Vol] 9.2 mg/dL 7.6-11.0 [facility] Serum or plasma urea nitroge n measurement (mass/volume)Ordered By: Jelly Rogers on 05-26-2024 Urea nitrogen [Mass/Vol] 17 mg/dL 4-19 [facility] Sodium levelOrdered By: Rikki Rogers on 05-26-2024 Sodium [Moles/Vol] 142 mmol/L 133-145 [facility] TSH DL <= 0.005 mIU/L QnOrde red By: Jelly Rogers on 05-26-2024 Thyroid Stimulating Hormone (TSH) 2.390 uIU/mL 0.300-4.200 [facility] TSH Qn 2.390 uIU/mL 0.300-4.200 [facility] Thyroid Stim Hormone (TSH)on 05-26-2024 TSH 2.390 uIU/mL Normal 0.300-4.200 [facility] Comment on above: Order Comment: Reaso n for Exam: Tachycardia Performed By: #### L 501.9520, L500.2500, L100.0100, L503.7505, L501.5200 ####[facility] [address] [place], [address] White blood cell (WBC) count Ordered By: Jelly Rogers on 05-26-2024 WBC (Bld) [#/Vol] 8.5 10*3/uL 4.4-11.0 [facility] Cardiac rehabilitation evalu ation reportOrdered By: Branden Jasso on 05-21-2024 Study report [facility] Cardiac Rehab [address] [place] [address] CR - History & Physical MR#: [id number] Acct: [id number] Name: NIKKO BARAJAS Rep #:[id number] : 1945 78 From: Branden Julien BS, RVT PCP: Dr. Santosh Velazquez, DO DOS: 09/07 CR - History & Physical General Arrival date:: 05/19/24 Arrival time:: 09:51 Date of Referral:: 04/18/24 Date of CR Evaluation:: 05/19/24 Referring Physician: Dr. Lloyd Primary Diagnosis: HF with EF<35% or less History of Present Cardiac Event Onset Date Heart Failure EF <35%:: Yes Medications Ambulatory Orders ?Medication ?Instructions ?Recorded clopidogrel 75 mg tablet (Plavix) 75 mg PO QDAY CLOTTI NG 05/22/17 Held on 04/19/24. Instructions: bleeding from injection site pantoprazole 40 mg tablet,delayed 40 mg PO QDAY GERD 0 05/22/17 release albuterol sulfate 90 mcg/actuation 2 puff inhalation Q 6H PRN Wheezing 07/20/17 aerosol inhaler (ProAir HFA) cholecalciferol (vitamin D3) 25 3,000 unit PO DAILY TAMIN 04/01/18 mcg (1,000 unit) capsule tiotropium bromide 2.5 2 inh inhalation QAM COPD mcg/actuation mist for inhalation (Spiriva Respimat) apixaban 5 mg tablet (Eliquis) 5 mg PO BID BLOOD THINN ER 04/07/23 levothyroxine 75 mcg capsule 75 mcg PO DAILY HYPOTHYRO ID 04/14/23 furosemide 20 mg tablet 20 mg PO DAILY EDEMA #90 TAB LETS 08/11/23 potassium chloride 10 mEq 10 meq PO DAILY LOW POTASSIU M #90 08/11/23 tablet,extended release TABLETS Handicap placard #1 ea 08/12/23 nitroglycerin 0.4 mg sublingual 0.4 mg sublingual Q5-1 5M CHEST 08/12/23 tablet PAIN #20 tabs atorvastatin 40 mg tablet 40 mg PO QHS HYPERLIPIDEMIA #90 09/29/23 tabs ferrous sulfate 325 mg (65 mg 325 mg PO BID #90 tabs 1 04/03/23 iron) tablet allopurinol 300 mg tablet 300 mg PO QDAY GOUT #90 tabs 02/23/24 nifedipine 90 mg tablet,extended 90 mg PO QDAY HYPERTE NSION #90 tabs 03/17/24 release 24 hr digoxin 125 mcg (0.125 mg) tablet 125 mcg PO DAILY #90 tabs 05/03/24 (Lanoxin) lisinopril 2.5 mg tablet 2.5 mg PO DAILY #90 tabs metoprolol succinate 100 mg 100 mg PO BID #180 tabs tablet,extended release 24 hr Allergies Allergies bee venom protein (honey bee) (bee stings) Allergy (Severe, Verified 05/03/24 09:37) Anaphylaxis venom-wasp protein Allergy (Severe, Verified 05/03/24 09:37) Anaphylaxis Sleep Disorder Evaluation Hx of Sleep Apnea: Yes Do you snore loudly (louder than talking or can be heard through closed doors)?:No Do you often feel tired/ fatigued/ sleepy during daytime?: No Has anyone observed you stop breathing during sleep?: No History of Hypertension (for STOP score): Yes STOP Results: Negative Advanced Directives Advanced Directives Power of Manager Of Enterprise: Yes Living Will: Yes Advance Directives Information Provided: Yes Advance Directives on File: No DNR Order?:: No Past Medical History Covid-19 Screening Physicial Symptoms Other Clinical Concerns Exposure Risk Pertinent Comorbidities 65 years or older:: Yes Has a chronic lung disease or moderate to severe asthma:: Yes Has a serious heart condition:: Yes Past Medical Illness Medical History Acute exacerbation of chronic heart failure Atrial fibrillation with RVR Thyroid disease High cholesterol Back pain Former smoker CPAP (continuous positive airway pressure) dependence Sleep apnea Emphysema, unspecified History of pain when walking History of edema History of echocardiogram History of atrial fibrillation Primary malignant neoplasm of prostate with high risk of recurrence due to Yaya score of 8 to 10 and PSA greater than 20 Nocturia Spermatocele of epididymis Prostate cancer Dyslipidemia 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 Bilateral lower extremity edema Carotid artery disease Peripheral arterial disease Paroxysmal atrial fibrillation Claudication of both lower extremities Aortic valve stenosis 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 Phimosis Hypothyroidism Encounter for circumcision CAD (coronary artery disease) Wears hearing aid Wears glasses Wears dentures Cancer Ambulates with cane Gout Easy bruising Excessive bleeding History of hiatal hernia Gastric reflux Former smoker Shortness of breath on exertion Leg cramps History of heart attack History of stress test Cardiology follow-up encounter History of irregular heartbeat Chest pain Abnormal stress test Abnormal computed tomography of cecum and terminal ileum Testicular discomfort Right inguinal hernia Peripheral neuritis of left foot Carotid stenosis, bilateral Essential hypertension Arthritis Old myocardial infarction 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 COPD (chronic obstructive pulmonary disease) Hypertension Hyperlipidemia Past Surgical History Surgical History History of skin graft History of coronary artery stent placement History (more content not included)... [facility] No Panel InformationOrdered By: Branden Jasso on 05-21-2024 [facility] Cardiac Rehab [address] [place] [address] CR - Individual Treatment Plan MR#: [id number] Acct: [id number] Name: NIKKO BARAJAS Rep #:[id number] : 1945 78 From: Branden Julien BS, RVT PCP: Dr. Santosh Velazquez, DO DOS: 09/07 Diagnosis General Information Admitting Diagnosis: HF with EF<35% or less Personal Learning Style:: Audio/Visual Barriers to Learning: No Barriers Stage of change r/t lifestyle modifications:: Contemplation Gave educational material for:: Treating Heart Disease, How The Heart Works, What it means to have Heart Disease, How Coronary Artery Disease is Diagnosed, Heart Procedures, What Heart Medications Do, Risk Factors & Modifications, Living an Active Life, Nutrition, Emotions & Heart Disease, Stress Management & Relaxation and Sleep Disorders & Heart Disease Education/Goals Cardiac Rehabilitation Goals Personal Goals: Initial Assessment: Improve energy level, Improve muscle strength and endurance, Improve diet and eating habits (eat healthier), Control risk factors (learn risk factor modification) and Other goal: Scale for measuring improvement of personal goals Diagnosis & Disease Process Outcomes/Goals: Pt IDs own risk factors & lifestyle modifications by Session 10,Verbalizes symptoms of angina & response by session 3., Pt independently managesand Other Additional Outcomes/Goals: Plan/Interventions: Assist Pt to ID & engage in lifestyle modification to reduceCVD risk, Instruct on individual risk factors, Review symptoms of angina & emergency actions, Review secondary diagnosis & identify educational needs. and Other see comment 30 day Reassessments:: Not Met 30 day Reassessments:: Not Met 30 day Reassessments:: Not Met 30 day Reassessments:: Not Met Final Reassessments:: Not Met Safety Referral to Physical Therapy: No Referral to [facility] Case Management: No Fall Risk Assessed:: Yes Assistive Devices:: Cane Exercise - Initial Assessment Visit Date of Eval: 05/19/24 (initial eval ) Mets: Pre-: >3 METS for 30 minutes by discharge, >5 METS for 30 minutes by discharge, >7 METS for 30 minutes by discharge and Unable to meet goal due to: (see comment below) Physician Prescribed Exercise Modalities: Treadmill, Rower, Schwinn Airdyne AD-7, SciFit Stepper, Azoi Pro-II Ergometer and Azoi Lateral [place] Frequency: 3x/week for 12 weeks [36 sessions] Intensity: 60-80% of age predicted maximum heart rate reserve Duration: 30 - 45 minutes Current METSs:: 3 Target Heart Rate:: 86-108 Resting Blood Pressure: 110/50 EKG Type: Afib RVR Outcomes & Goals Goals:: Verbalizes understanding of THR, RPE & goal METS by session 6, Documentsin home exercise log/reports 30 min aerobic 5 day/wk by DC, Demonstrates accurate pulse taking by DC and Other additional outcome/goals: see below Intervention & Plan Exercise Program Goals: Instruct on personal THR & RPE, Instruct on MET level & personal MET goal, Show patient to take own pulse /validate performance until accurate, Instruct on home exercise and Other additional plan/int Physical Activity Home Exercise Physical Activity - Home Exercise: Safe Exercise, Warm-up, Self-monitoring, Cool-Down, Home Exercise > 30 min Daily and Sitting Time <3 hours/daily Outcomes & Goals Outcomes/Goals: Demonstrates correct Warm-up/exercise Cool-Down (S3) if = 2.5 METs, Verbalizes symptoms of exercise intolerance by Session 3 (S3), Demonstratesafe equipment use (S3) & follows exercise prescrition (6) and Other: See below Intervention & Plan Plan/Intervention: Instruct warm-up & cool-down if exercising at > 2 METs, Instruct on symptoms of exercise intolerance & actions to take, Instruct & monitor on saf, Assess intial functional capacity & safety risk and Other See below Nutrition - Initial Assessment Program Goals Nutrition Program Goals Patient has diagnosis of Hyperlipidemia (ICD E78)?: Yes Visit Date of Eval: 05/19/24 (initial eval ) Cholesterol/Lipids (Other Core Measures) Determine presence & major risk factors that modify LDL goal: Cigarette smoking,Hypertension or hypertensive medication, Low HDL cholesterol <40 mg/dL*, Family history of premature CHD in Male < 55 years: female <65 yearsFa and Age men > 45years; women >/= 55 years Outcomes/Goals: Pt IDs own risk factors & lifestyle modifications by Session 10,Verbalizes symptoms of angina & response by session 3., Pt independently managesand Other Additional Outcomes/Goals: Intervention/Plan: Advocate for lipid panel cholesterol medication if applicable, Instruct on personal lipid levels & lipid goals/NCEP guidelines, Instruct on cholesterol and Other additional plan/int Diabetes (Other Core Measures) Diabetes Type: Not Applicable Weight Mgt (Other Care) Height: 5 ft 9 in Weight:: 161 lb BMI: 23.8 Diagnosis Overweight/Obesity BMI> 30% ICD-10 E66: No Diagnosis High BMI/Morbid Obesity BMI> 35% ICD-10 Z68: No Outcomes/Goals: Pt sets, maintains & shows weight loss goal & trend during rehaband Other additional outcomes/goals Intervention/Plan: Instruct on ideal BMI (more content not included)... [facility] CR - History AND Physicalon 05-19-2024 CR - History & Physical Normal [facility] Internal Medicine Office Vis iton 05-03-2024 Internal Medicine Office Visit Normal [facility] 12 Lead EKG performed by BMS on 04-28-2024 12 Lead EKG performed by BMS Normal [facility] Cardiology Visit Reporton Cardiology Visit Report Normal [facility] Bilirubin directOrdered By: Brendan Lloyd on 04-25-2024 Bilirubin.direct [Mass/Vol] 0.14 mg/dL Normal 0.00-0.30 [facility] Comment on above: Order Comment: BENITO CONTRERAS WAS NOT FASTING HAS APPT 2/6 HE WAS ALREADY GETTINGLABS PULLED FOR UROLOGY Performed By: #### L 500.4100, L500.3400 ####[facility] [address] [place], [place], [address] Bilirubin, totalOrdered By: Brendan Lloyd on 04-25-2024 Bilirubin [Mass/Vol] 0.40 mg/dL Normal 0.20-1.00 [facility] Comment on above: For patients on eltr ombopag therapy, use of Dimension [place] TBIL is not recommended. Order Comment: BENITO CONTRERAS WAS NOT FASTING HAS APPT 2/6 HE WAS ALREADY GETTINGLABS PULLED FOR UROLOGY Result Comment: For patients on eltrombopag therapy, use of Dimension [place] TBIL is not recommended. Performed By: #### L 500.4100, L500.3400 ####[facility] [address] [facility] [address] [place], [place], [id number] Diagnostic total prostate sp ecific antigen (PSA) measurementOrdered By: Jam Cohen on 04-25-2024 Prostate Specific Antigen Total 0.11 ng/mL 0.0-4.0 [facility] Comment on above: This test was perfor med using the TPSA assay method [facility] the[facility] chemistry system. Values obtained with differentassay methods cannot be used interchangably.When changing PSA assays in the course of monitoring apatient, additional sequential testing should be carriedout to confirm baseline values. High density lipoprotein (HD L) measurementOrdered By: Brendan Lloyd on 04-25-2024 Cholesterol in HDL [Mass/Vol] 30 mg/dL Low [facility] Comment on above: The drugs N-Acetylcy steine and Metamizole may falsely depress this assay. Reference Range HDL <40 mg/dL Low HDL Cholesterol HDL >or= 60 mg/dL High HDL Cholesterol Order Comment: BENITO CONTRERAS WAS NOT FASTING HAS APPT 2/6 HE WAS ALREADY GETTINGLABS PULLED FOR UROLOGY Result Comment: The drugs N-Acetylcysteine and Metamizole may falselydepress this assay. Reference Range HDL <40 mg/dL Low HDL Cholesterol HDL >or= 60 mg/dL High HDL Cholesterol Performed By: #### L 500.4100, L500.3400 ####[facility] [address] [place], [address] Lipid Profileon 04-25-2024 Cholesterol in VLDL [Mass/Vol] 30 mg/dL Normal 5-40 [facility] Comment on above: Order Comment: BENTIO NT WAS NOT FASTING HAS APPT 2/6 HE WAS ALREADY GETTINGLABS PULLED FOR UROLOGY Performed By: #### L 500.4100, L500.3400 ####[facility] [address] [place], [address] Liver Profileon 04-25-2024 ALK P 101 U/L Normal 45-117 [facility] Comment on above: Order Comment: BENITO NT WAS NOT FASTING HAS APPT 2/6 HE WAS ALREADY GETTINGLABS PULLED FOR UROLOGY Performed By: #### L 500.4100, L500.3400 ####[facility] [address] [place], [address] T PROT 7.0 g/dL Normal 6.4-8.2 [facility] Comment on above: Order Comment: BENITO NT WAS NOT FASTING HAS APPT 2/6 HE WAS ALREADY GETTINGLABS PULLED FOR UROLOGY Performed By: #### L 500.4100, L500.3400 ####[facility] [address] [place], [address] Liver ProfileOrdered By: Kelsea Lloyd on 04-25-2024 AST [Catalytic activity/Vol] 19 U/L Normal 15-37 [facility] Comment on above: Order Comment: BENITO NT WAS NOT FASTING HAS APPT 2/6 HE WAS ALREADY GETTINGLABS PULLED FOR UROLOGY Performed By: #### L 500.4100, L500.3400 ####[facility] [address] [place], [address] Low density lipoprotein (LDL ) cholesterol measurementOrdered By: Brendan Lloyd on 04-25-2024 Cholesterol in LDL [Mass/Vol] 27 mg/dL Normal 0-130 [facility] Comment on above: Order Comment: BENITO CONTRERAS WAS NOT FASTING HAS APPT 2/6 HE WAS ALREADY GETTINGLABS PULLED FOR UROLOGY Performed By: #### L 500.4100, L500.3400 ####[facility] [address] [place], [address] PSA,Total- Diagnosticon 04-16 PSA, DIAGNOSTIC 0.11 ng/mL Normal 0.0-4.0 [facility] Comment on above: Result Comment: This test was performed using the TPSA assay method for [employer] chemistry system. Values obtained with differentassay methods cannot be used interchangably.When changing PSA assays in the course of monitoring apatient, additional sequential testing should be carriedout to confirm baseline values. Performed By: #### L 501.9940 ####[facility] [address] [place], [place], [id number] Serum globulin measurementOr dered By: Brendan Lloyd on 04-25-2024 Globulin (S) [Mass/Vol] 3.7 g/dL Normal 2.2-4.2 [facility] Comment on above: Order Comment: BENITO CONTRERAS WAS NOT FASTING HAS APPT 2/6 HE WAS ALREADY GETTINGLABS PULLED FOR UROLOGY Performed By: #### L 500.4100, L500.3400 ####[facility] [address] [place], [place], [phone] Serum or plasma alanine roblero otransferase (ALT) measurementOrdered By: Brendan Lloyd on 04-25-2024 ALT [Catalytic activity/Vol] 27 U/L Normal 16-61 [facility] Comment on above: Order Comment: BENITO CONTRERAS WAS NOT FASTING HAS APPT 2/6 HE WAS ALREADY GETTINGLABS PULLED FOR UROLOGY Performed By: #### L 500.4100, L500.3400 ####[facility] [address] [place], [place], [id number] Serum or plasma albumin lucio urement (mass/volume)Ordered By: Brendan Lloyd on 04-25-2024 Albumin [Mass/Vol] 3.3 g/dL Normal 3.2-5.0 [facility] Comment on above: Order Comment: BENITO CONTRERAS WAS NOT FASTING HAS APPT 2/6 HE WAS ALREADY GETTINGLABS PULLED FOR UROLOGY Performed By: #### L 500.4100, L500.3400 ####[facility] [address] [place], [place], [id number] Serum or plasma alkaline ravi sphatase measurementOrdered By: Brendan Lloyd on 04-25-2024 ALP [Catalytic activity/Vol] 101 U/L 45-117 [facility] Serum or plasma cholesterol measurement (mass/volume)Ordered By: Brendan Lloyd on 04-25-2024 Cholesterol [Mass/Vol] 87 mg/dL Normal 200 [facility] Comment on above: <200 mg/dL Desirable 200-240 mg/dL Borderline >240 mg/dL High Risk Order Comment: BENITO CONTRERAS WAS NOT FASTING HAS APPT 2/ HE WAS ALREADY GETTINGLABS PULLED FOR UROLOGY Result Comment: <200 mg/dL Desirable 200-240 mg/dL Borderline >240 mg/dL High Risk Performed By: #### L 500.4100, L500.3400 ####[facility] [address] [place], [place], [id number] Total proteinOrdered By: Kelsea Lloyd on 04-25-2024 Protein [Mass/Vol] 7.0 g/dL 6.4-8.2 [facility] Triglycerides measurementOrd ered By: Brendan Lloyd on 04-25-2024 Triglyceride [Mass/Vol] 151 mg/dL Normal [facility] Comment on above: The drugs N-Acetylcy steine and Metamizole may falsely depress this assay.Serum Triglycerides Reference Interval Normal <150 mg/dL Borderline high 150 - 199 mg/dL High 200 - 499 mg/dL Very High > or = 500 mg/dL Order Comment: BENITO CONTRERAS WAS NOT FASTING HAS APPT 2/6 HE WAS ALREADY GETTINGLABS PULLED FOR UROLOGY Result Comment: The drugs N-Acetylcysteine and Metamizole may falselydepress this assay.Serum Triglycerides Reference Interval Normal <150 mg/dL Borderline high 150 - 199 mg/dL High 200 - 499 mg/dL Very High > or = 500 mg/dL Performed By: #### L 500.4100, L500.3400 ####[facility] [address] [place], [address] Very low density lipoprotein (VLDL) cholesterol measurementOrdered By: Brendan Lloyd on 04-25-2024 Very low density lipoprotein (VLDL) cholesterol measurement 30 mg/dL [facility] VLDL Cholesterol 30 mg/dL 40 [facility] Emergency Department Summary on 04-19-2024 Emergency Department Summary Normal [facility] Discharge Instructionon 03-17 Discharge Instruction Normal [facility] 12 Lead EKGon 04-12-2024 12 Lead EKG Normal [facility] Absolute lymphocyte countOrd ered By: Adalberto Umaña on 04-12-2024 Lymphocytes Auto (Unsp spec) [#/Vol] 1.00 10*3/uL 0.83-4.51 [facility] Absolute neutrophil countOrd ered By: Adalberto Umaña on 04-12-2024 Neutrophils (Bld) [#/Vol] 5.6 10*3/uL 2.0-7.7 [facility] Automated lymphocyte count a s percentage of total leukocytesOrdered By: Adalberto Umaña on 04-12-2024 Lymphocytes/100 WBC Auto (Unsp spec) 13.3 % Low 19-41 [facility] Basic Metabolic Profile (BMP )on 04-12-2024 BUN/CRE 35.5 RATIO High 10-20 [facility] Comment on above: Performed By: #### L 100.0100, L500.2500, L501.9520 ####[facility] [address] [place], [address] CA,Total 8.9 mg/dL Normal 8.5-10.1 [facility] Comment on above: Performed By: #### L 100.0100, L500.2500, L501.9520 ####[facility] [address] [place], [address] Chloride [Moles/Vol] 111 mmol/L High 98-107 [facility] Comment on above: Performed By: #### L 100.0100, L500.2500, L501.9520 ####[facility] [address] [place], [address] CO2 [Moles/Vol] 27.0 mmol/L Normal 21.0-32.0 [facility] Comment on above: Performed By: #### L 100.0100, L500.2500, L501.9520 ####[facility] [address] [place], [address] Creatinine [Mass/Vol] 0.96 mg/dL Normal 0.70-1.30 [facility] Comment on above: Result Comment: The validity of the calculated GFR GFRAA in patients over70 years has not been determined. Clinical correlation isessential. Performed By: #### L 100.0100, L500.2500, L501.9520 ####[facility] [address] [place], [address] ECRCL 65.46 ml/min Normal [facility] Comment on above: Performed By: #### L 100.0100, L500.2500, L501.9520 ####[facility] [address] [place], [address] EST GFR - AA 98 mL/min Normal >60 [facility] Comment on above: Result Comment: Afri can Algerian GFR Calc Performed By: #### L 100.0100, L500.2500, L501.9520 ####[facility] [address] [place], [address] GAP 6 Normal 5-15 [facility] Comment on above: Performed By: #### L 100.0100, L500.2500, L501.9520 ####[facility] [address] [place], [address] GFR/1.73 sq M.predicted among non-blacks MDRD (S/P/Bld) [Vol rate/Area] 81 mL/min/{1.73_m2} Normal >60 [facility] Comment on above: Result Comment: Non- GFR Calc Performed By: #### L 100.0100, L500.2500, L501.9520 ####[facility] [address] [place], [address] Glucose [Mass/Vol] 109 mg/dL High 74-106 [facility] Comment on above: Result Comment: Fast ing Glucose result from 100 to 125 mg/dLsuggests IMPAIRED HOMEOSTASIS per A.D.A. criteria. Performed By: #### L 100.0100, L500.2500, L501.9520 ####[facility] [address] [place], [address] Potassium [Moles/Vol] 4.3 mmol/L Normal 3.5-5.1 [facility] Comment on above: Performed By: #### L 100.0100, L500.2500, L501.9520 ####[facility] [address] [place], [address] Sodium [Moles/Vol] 144 mmol/L Normal 136-145 [facility] Comment on above: Performed By: #### L 100.0100, L500.2500, L501.9520 ####[facility] [address] [place], [address] Urea nitrogen [Mass/Vol] 34 mg/dL High 7-18 [facility] Comment on above: Performed By: #### L 100.0100, L500.2500, L501.9520 ####[facility] [address] [place], [address] Basophil percentageOrdered B y: Adalberto Umaña on 04-12-2024 Basophils/100 WBC (Bld) 0.4 % 0-1 [facility] Blood urea nitrogen (BUN)/cr eatinine ratioOrdered By: Adalberto Umaña on 04-12-2024 Urea nitrogen/Creatinine [Mass ratio] 35.5 mg/mg High 10-20 [facility] CBC W/Diff, Automatedon 03-17 Absolute Lymph 1.00 X10 3/uL Normal 0.83-4.51 [facility] Comment on above: Performed By: #### L 100.0100, L500.2500, L501.9520 ####[facility] [address] [place], [address] Absolute Neut 5.6 X10 3/uL Normal 2.0-7.7 [facility] Comment on above: Performed By: #### L 100.0100, L500.2500, L501.9520 ####[facility] [address] [place], [address] Basophils/100 WBC (Bld) 0.4 % Normal 0-1 [facility] Comment on above: Performed By: #### L 100.0100, L500.2500, L501.9520 ####[facility] [address] [place], [address] Eosinophils/100 WBC (Bld) 2.5 % Normal 0-5 [facility] Comment on above: Performed By: #### L 100.0100, L500.2500, L501.9520 ####[facility] [address] [place], [address] Erythrocyte distribution width (RBC) [Ratio] 15.7 % High 11.6-14.6 [facility] Comment on above: Performed By: #### L 100.0100, L500.2500, L501.9520 ####[facility] [address] [place], [address] Hematocrit (Bld) [Volume fraction] 35.5 % Low 40-54 [facility] Comment on above: Performed By: #### L 100.0100, L500.2500, L501.9520 ####[facility] [address] [place], [address] Hemoglobin (Bld) [Mass/Vol] 11.0 g/dL Low 13.0-16.5 [facility] Comment on above: Performed By: #### L 100.0100, L500.2500, L501.9520 ####[facility] [address] [place], [address] IG% 0.400 Normal 0.0-0.9 [facility] Comment on above: Result Comment: IG% - Immature Granulocytes (promyelocytes, myelocytes andmetamyelocytes) > 1% indicates that a LEFT SHIFT is Present. Performed By: #### L 100.0100, L500.2500, L501.9520 ####[facility] [address] [place], [address] Lymphocytes/100 WBC (Bld) 13.3 % Low 19-41 [facility] Comment on above: Performed By: #### L 100.0100, L500.2500, L501.9520 ####[facility] [address] [place], [address] MCH (RBC) [Entitic mass] 29.7 pg Normal 27.0-32.0 [facility] Comment on above: Performed By: #### L 100.0100, L500.2500, L501.9520 ####[facility] [address] [place], [address] MCHC (RBC) [Mass/Vol] 31.0 g/dL Low 32-36 [facility] Comment on above: Performed By: #### L 100.0100, L500.2500, L501.9520 ####[facility] [address] [place], [address] MCV (RBC) [Entitic vol] 95.9 fL High 80-94 [facility] Comment on above: Performed By: #### L 100.0100, L500.2500, L501.9520 ####[facility] [address] [place], [address] Monocytes/100 WBC (Bld) 8.4 % Normal 0-10 [facility] Comment on above: Performed By: #### L 100.0100, L500.2500, L501.9520 ####[facility] [address] [place], [address] Neutrophils/100 WBC (Bld) 75.0 % High 47-70 [facility] Comment on above: Performed By: #### L 100.0100, L500.2500, L501.9520 ####[facility] [address] [place], [address] Nucleated RBC (Bld) [#/Vol] 0 10*3/uL Normal 0-5 [facility] Comment on above: Performed By: #### L 100.0100, L500.2500, L501.9520 ####[facility] [address] [place], [address] Platelet mean volume (Bld) [Entitic vol] 11.0 fL Normal 6.2-12.0 [facility] Comment on above: Performed By: #### L 100.0100, L500.2500, L501.9520 ####[facility] [address] [place], [address] Platelets (Bld) [#/Vol] 248 10*3/uL Normal 150-450 [facility] Comment on above: Performed By: #### L 100.0100, L500.2500, L501.9520 ####[facility] [address] [place], [address] RBC (Bld) [#/Vol] 3.70 10*6/uL Low 4.6-6.2 [facility] Comment on above: Performed By: #### L 100.0100, L500.2500, L501.9520 ####[facility] [address] [place], [address] RDW SD 54.0 fl High 35.1-43.9 [facility] Comment on above: Performed By: #### L 100.0100, L500.2500, L501.9520 ####[facility] [address] [place], [address] WBC (Bld) [#/Vol] 7.5 10*3/uL Normal 4.4-11.0 [facility] Comment on above: Performed By: #### L 100.0100, L500.2500, L501.9520 ####[facility] [address] [place], [address] Carbon dioxide measurementOr dered By: Adalberto Umaña on 04-12-2024 CO2 [Moles/Vol] 27.0 mmol/L 21.0-32.0 [facility] Chloride measurementOrdered By: Adalberto Umaña on 04-12-2024 Chloride [Moles/Vol] 111 mmol/L High 98-107 [facility] Eosinophil percentageOrdered By: Adalberto Umaña on 04-12-2024 Eosinophils/100 WBC (Bld) 2.5 % 0-5 [facility] Erythrocyte distribution wid th ratioOrdered By: Adalberto Umaña on 04-12-2024 Erythrocyte distribution width (RBC) [Ratio] 15.7 % High 11.6-14.6 [facility] Erythrocyte distribution wid th standard deviationOrdered By: Adalberto Umaña on 04-12-2024 Erythrocyte distribution width (RBC) [Entitic vol] 54.0 fL High 35.1-43.9 [facility] Erythrocyte distribution width (RBC) [Ratio] 54.0 fl High 35.1-43.9 [facility] Estimated glomerular filtrat ion rate (GFR) AmericanOrdered By: Adalberto Umaña on 04-12-2024 Estimated GFR (MDRD) Amer 98 mL/min >60 [facility] Comment on above: GFR Calc Estimation of creatinine hipolito aranceOrdered By: Adalberto Umaña on 04-12-2024 Estimated Creatinine Clearance Calc 65.46 ml/min [facility] Glomerular filtration rate ( GFR) estimationOrdered By: Adalberto Umaña on 04-12-2024 Estimated GFR (MDRD) Non-Af Amer 81 mL/min >60 [facility] Comment on above: Non- GFR Calc GFR/1.73 sq M.predicted among non-blacks MDRD (S/P/Bld) [Vol rate/Area] 81 mL/min/{1.73_m2} >60 [facility] Comment on above: Non- GFR Calc Glucose measurementOrdered B y: Adalberto Umaña on 04-12-2024 Glucose [Mass/Vol] 109 mg/dL High 74-106 [facility] Comment on above: Fasting Glucose resu lt from 100 to 125 mg/dL suggests IMPAIRED HOMEOSTASIS per A.D.A. criteria. Hematocrit Auto (Bld) [Volum e fraction]Ordered By: Adalberto Umaña on 04-12-2024 Hematocrit (Bld) [Volume fraction] 35.5 % Low 40-54 [facility] Hemoglobin measurementOrdere d By: Adalberto Umaña on 04-12-2024 Hemoglobin (Bld) [Mass/Vol] 11.0 g/dL Low 13.0-16.5 [facility] Immature granulocytes/100 WB C Auto (Bld)Ordered By: Adalberto Umaña on 04-12-2024 Immature granulocytes/100 WBC (Bld) 0.400 % 0.0-0.9 [facility] Comment on above: IG% - Immature Granu locytes (promyelocytes, myelocytes and metamyelocytes) > 1% indicates that a LEFT SHIFT is Present. Lymphocytes Auto (Unsp spec) [#/Vol]Ordered By: Adalberto Umaña on 04-12-2024 Lymphocytes (Bld) [#/Vol] 1.00 10*3/uL 0.83-4.51 [facility] Lymphocytes/100 WBC Auto (Un sp spec)Ordered By: Adalberto Umaña on 04-12-2024 Lymphocytes/100 WBC (Bld) 13.3 % Low 19-41 [facility] MCV (mean corpuscular volume ) determinationOrdered By: Adalberto Umaña on 04-12-2024 MCV (RBC) [Entitic vol] 95.9 fL High 80-94 [facility] Mean corpuscular hemoglobin (MCH) determinationOrdered By: Adalberto Umaña on 04-12-2024 MCH (RBC) [Entitic mass] 29.7 pg 27.0-32.0 [facility] Mean corpuscular hemoglobin concentration (MCHC) determinationOrdered By: Adalberto Umaña on 04-12-2024 MCHC (RBC) [Mass/Vol] 31.0 g/dL Low 32-36 [facility] Mean platelet volume determi nationOrdered By: Adalberto Umaña on 04-12-2024 Platelet mean volume (Bld) [Entitic vol] 11.0 fL 6.2-12.0 [facility] Monocyte percentageOrdered B y: Adalberto Umaña on 04-12-2024 Monocytes/100 WBC (Bld) 8.4 % 0-10 [facility] Neutrophil percentageOrdered By: Adalberto mUaña on 04-12-2024 Neutrophils/100 WBC (Bld) 75.0 % High 47-70 [facility] Nucleated red blood cell per centageOrdered By: Adalberto Umaña on 04-12-2024 Nucleated RBC/100 WBC (Bld) [Ratio] 0 % 0-5 [facility] Platelet countOrdered By: [place] on 04-12-2024 Platelets (Bld) [#/Vol] 248 10*3/uL 150-450 [facility] Potassium measurementOrdered By: Adalberto Umaña on 04-12-2024 Potassium [Moles/Vol] 4.3 mmol/L 3.5-5.1 [facility] RBC Auto (Bld) [#/Vol]Ordere d By: Adalberto Umaña on 04-12-2024 RBC (Bld) [#/Vol] 3.70 10*6/uL Low 4.6-6.2 [facility] Serum anion gap measurementO rdered By: Adalberto Umaña on 04-12-2024 Anion gap [Moles/Vol] 6 mmol/L 5-15 [facility] Serum or plasma calcium lucio urement (mass/volume)Ordered By: Adalberto Umaña on 04-12-2024 Calcium [Mass/Vol] 8.9 mg/dL 8.5-10.1 [facility] Serum or plasma creatinine m easurement (mass/volume)Ordered By: Adalberto Umaña on 04-12-2024 Creatinine [Mass/Vol] 0.96 mg/dL 0.70-1.30 [facility] Comment on above: The validity of the calculated GFR & GFRAA in patients over 70 years has not been determined. Clinical correlation is essential. Serum or plasma thyroid stim ulating hormone (TSH) measurement (units/volume)Ordered By: Adalberto Umaña on 04-12-2024 TSH Qn 2.910 uIU/mL 0.358-3.740 [facility] Serum or plasma urea nitroge n measurement (mass/volume)Ordered By: Adalberto Umaña on 04-12-2024 Urea nitrogen [Mass/Vol] 34 mg/dL High 7-18 [facility] Sodium levelOrdered By: Garrison Umaña on 04-12-2024 Sodium [Moles/Vol] 144 mmol/L 136-145 [facility] TSH QnOrdered By: Adalberto manjarrez on 04-12-2024 Thyroid Stimulating Hormone (TSH) 2.910 uIU/mL 0.358-3.740 [facility] Thyroid Stim Hormone (TSH)on 04-12-2024 TSH 2.910 uIU/mL Normal 0.358-3.740 [facility] Comment on above: Performed By: #### L 100.0100, L500.2500, L501.9520 ####[facility] [address] [place], [place], [id number] White blood cell (WBC) count Ordered By: Adalberto Umaña on 04-12-2024 WBC (Bld) [#/Vol] 7.5 10*3/uL 4.4-11.0 [facility] Basic Metabolic Profile (BMP )on 04-11-2024 BUN/CRE 39.6 RATIO High 10-20 [facility] Comment on above: Performed By: #### L 500.2500 ####[facility] [address] [place], [address] CA,Total 9.0 mg/dL Normal 8.5-10.1 [facility] Comment on above: Performed By: #### L 500.2500 ####[facility] [address] [place], [address] Chloride [Moles/Vol] 112 mmol/L High 98-107 [facility] Comment on above: Performed By: #### L 500.2500 ####[facility] [address] [place], [address] CO2 [Moles/Vol] 24.0 mmol/L Normal 21.0-32.0 [facility] Comment on above: Performed By: #### L 500.2500 ####[facility] [address] [place], [address] Creatinine [Mass/Vol] 1.01 mg/dL Normal 0.70-1.30 [facility] Comment on above: Result Comment: The validity of the calculated GFR GFRAA in patients over70 years has not been determined. Clinical correlation isessential. Performed By: #### L 500.2500 ####[facility] [address] [place], [address] ECRCL 62.22 ml/min Normal [facility] Comment on above: Performed By: #### L 500.2500 ####[facility] [address] [place], [address] EST GFR - AA 92 mL/min Normal >60 [facility] Comment on above: Result Comment: Afri can Algerian GFR Calc Performed By: #### L 500.2500 ####[facility] [address] [place], [address] GAP 6 Normal 5-15 [facility] Comment on above: Performed By: #### L 500.2500 ####[facility] [address] [place], [address] GFR/1.73 sq M.predicted among non-blacks MDRD (S/P/Bld) [Vol rate/Area] 76 mL/min/{1.73_m2} Normal >60 [facility] Comment on above: Result Comment: Non- GFR Calc Performed By: #### L 500.2500 ####[facility] [address] [place], [address] Glucose [Mass/Vol] 101 mg/dL Normal 74-106 [facility] Comment on above: Result Comment: Fast ing Glucose result from 100 to 125 mg/dLsuggests IMPAIRED HOMEOSTASIS per A.D.A. criteria. Performed By: #### L 500.2500 ####[facility] [address] [place], [address] Potassium [Moles/Vol] 4.5 mmol/L Normal 3.5-5.1 [facility] Comment on above: Performed By: #### L 500.2500 ####[facility] [address] [place], [address] Sodium [Moles/Vol] 141 mmol/L Normal 136-145 [facility] Comment on above: Performed By: #### L 500.2500 ####[facility] [address] [place], [address] Urea nitrogen [Mass/Vol] 40 mg/dL High 7-18 [facility] Comment on above: Performed By: #### L 500.2500 ####[facility] [address] [place], [address] 12 Lead EKGon 04-10-2024 12 Lead EKG Normal [facility] Basic Metabolic Profile (BMP )on 04-10-2024 BUN/CRE 38.1 RATIO High 10-20 [facility] Comment on above: Performed By: #### L 500.2500 ####[facility] [address] [place], [address] CA,Total 9.1 mg/dL Normal 8.5-10.1 [facility] Comment on above: Performed By: #### L 500.2500 ####[facility] [address] [place], [address] Chloride [Moles/Vol] 113 mmol/L High 98-107 [facility] Comment on above: Performed By: #### L 500.2500 ####[facility] [address] [place], [address] CO2 [Moles/Vol] 22.0 mmol/L Normal 21.0-32.0 [facility] Comment on above: Performed By: #### L 500.2500 ####[facility] [address] [place], [address] Creatinine [Mass/Vol] 1.18 mg/dL Normal 0.70-1.30 [facility] Comment on above: Result Comment: The validity of the calculated GFR GFRAA in patients over70 years has not been determined. Clinical correlation isessential. Performed By: #### L 500.2500 ####[facility] [address] [place], [address] ECRCL 53.26 ml/min Normal [facility] Comment on above: Performed By: #### L 500.2500 ####[facility] [address] [place], [address] EST GFR - AA 77 mL/min Normal >60 [facility] Comment on above: Result Comment: Afri can Algerian GFR Calc Performed By: #### L 500.2500 ####[facility] [address] [place], [address] GAP 6 Normal 5-15 [facility] Comment on above: Performed By: #### L 500.2500 ####[facility] [address] [place], [address] GFR/1.73 sq M.predicted among non-blacks MDRD (S/P/Bld) [Vol rate/Area] 64 mL/min/{1.73_m2} Normal >60 [facility] Comment on above: Result Comment: Non- GFR Calc Performed By: #### L 500.2500 ####[facility] [address] [place], [address] Glucose [Mass/Vol] 100 mg/dL Normal 74-106 [facility] Comment on above: Result Comment: Fast ing Glucose result from 100 to 125 mg/dLsuggests IMPAIRED HOMEOSTASIS per A.D.A. criteria. Performed By: #### L 500.2500 ####[facility] [address] [place], [address] Potassium [Moles/Vol] 4.3 mmol/L Normal 3.5-5.1 [facility] Comment on above: Performed By: #### L 500.2500 ####[facility] [address] [place], [address] Sodium [Moles/Vol] 141 mmol/L Normal 136-145 [facility] Comment on above: Performed By: #### L 500.2500 ####[facility] [address] [place], [address] Urea nitrogen [Mass/Vol] 45 mg/dL High 7-18 [facility] Comment on above: Performed By: #### L 500.2500 ####[facility] [address] [place], [address] 12 Lead EKGon 04-09-2024 12 Lead EKG Normal [facility] Albumin to globulin ratioOrd ered By: Luba Villatoro on 04-09-2024 Albumin/Globulin [Mass ratio] 0.9 {ratio} 0.9-2.4 [facility] Bilirubin, totalOrdered By: Luba Villatoro on 04-09-2024 Bilirubin [Mass/Vol] 0.50 mg/dL 0.20-1.00 [facility] Comment on above: For patients on eltr ombopag therapy, use of Dimension [place] TBIL is not recommended. CBC W/Diff, Automatedon -2 Absolute Lymph 1.07 X10 3/uL Normal 0.83-4.51 [facility] Comment on above: Performed By: #### L 500.4100, L501.9520, L100.0100, L500.4050 ####[facility] [address] [place], [address] Absolute Neut 5.5 X10 3/uL Normal 2.0-7.7 [facility] Comment on above: Performed By: #### L 500.4100, L501.9520, L100.0100, L500.4050 ####[facility] [address] [place], [address] Basophils/100 WBC (Bld) 0.5 % Normal 0-1 [facility] Comment on above: Performed By: #### L 500.4100, L501.9520, L100.0100, L500.4050 ####[facility] [address] [place], [address] Eosinophils/100 WBC (Bld) 1.8 % Normal 0-5 [facility] Comment on above: Performed By: #### L 500.4100, L501.9520, L100.0100, L500.4050 ####[facility] [address] [place], [address] Erythrocyte distribution width (RBC) [Ratio] 15.8 % High 11.6-14.6 [facility] Comment on above: Performed By: #### L 500.4100, L501.9520, L100.0100, L500.4050 ####[facility] [address] [place], [address] Hematocrit (Bld) [Volume fraction] 32.2 % Low 40-54 [facility] Comment on above: Performed By: #### L 500.4100, L501.9520, L100.0100, L500.4050 ####[facility] [address] [place], [address] Hemoglobin (Bld) [Mass/Vol] 10.4 g/dL Low 13.0-16.5 [facility] Comment on above: Performed By: #### L 500.4100, L501.9520, L100.0100, L500.4050 ####[facility] [address] [place], [address] IG% 0.400 Normal 0.0-0.9 [facility] Comment on above: Result Comment: IG% - Immature Granulocytes (promyelocytes, myelocytes andmetamyelocytes) > 1% indicates that a LEFT SHIFT is Present. Performed By: #### L 500.4100, L501.9520, L100.0100, L500.4050 ####[facility] [address] [place], [address] Lymphocytes/100 WBC (Bld) 14.1 % Low 19-41 [facility] Comment on above: Performed By: #### L 500.4100, L501.9520, L100.0100, L500.4050 ####[facility] [address] [place], [address] MCH (RBC) [Entitic mass] 30.7 pg Normal 27.0-32.0 [facility] Comment on above: Performed By: #### L 500.4100, L501.9520, L100.0100, L500.4050 ####[facility] [address] [place], [address] MCHC (RBC) [Mass/Vol] 32.3 g/dL Normal 32-36 [facility] Comment on above: Performed By: #### L 500.4100, L501.9520, L100.0100, L500.4050 ####[facility] [address] [place], [address] MCV (RBC) [Entitic vol] 95.0 fL High 80-94 [facility] Comment on above: Performed By: #### L 500.4100, L501.9520, L100.0100, L500.4050 ####[facility] [address] [place], [address] Monocytes/100 WBC (Bld) 10.4 % High 0-10 [facility] Comment on above: Performed By: #### L 500.4100, L501.9520, L100.0100, L500.4050 ####[facility] [address] [place], [address] Neutrophils/100 WBC (Bld) 72.8 % High 47-70 [facility] Comment on above: Performed By: #### L 500.4100, L501.9520, L100.0100, L500.4050 ####[facility] [address] [place], [address] Nucleated RBC (Bld) [#/Vol] 0.3 10*3/uL Normal 0-5 [facility] Comment on above: Performed By: #### L 500.4100, L501.9520, L100.0100, L500.4050 ####[facility] [address] [place], [address] Platelet mean volume (Bld) [Entitic vol] 11.4 fL Normal 6.2-12.0 [facility] Comment on above: Performed By: #### L 500.4100, L501.9520, L100.0100, L500.4050 ####[facility] [address] [place], [address] Platelets (Bld) [#/Vol] 241 10*3/uL Normal 150-450 [facility] Comment on above: Performed By: #### L 500.4100, L501.9520, L100.0100, L500.4050 ####[facility] [address] [place], [address] RBC (Bld) [#/Vol] 3.39 10*6/uL Low 4.6-6.2 [facility] Comment on above: Performed By: #### L 500.4100, L501.9520, L100.0100, L500.4050 ####[facility] [address] [place], [address] RDW SD 54.3 fl High 35.1-43.9 [facility] Comment on above: Performed By: #### L 500.4100, L501.9520, L100.0100, L500.4050 ####[facility] [address] [place], [address] WBC (Bld) [#/Vol] 7.6 10*3/uL Normal 4.4-11.0 [facility] Comment on above: Performed By: #### L 500.4100, L501.9520, L100.0100, L500.4050 ####[facility] [address] [place], [address] Chest 1 View (Portable)on Chest 1 View (Portable) Normal [facility] Comprehensive Metabolic Prof ilon 04-09-2024 Albumin [Mass/Vol] 3.0 g/dL Low 3.2-5.0 [facility] Comment on above: Performed By: #### L 500.4100, L501.9520, L100.0100, L500.4050 ####[facility] [address] [place], [address] Albumin/Globulin [Mass ratio] 0.9 {ratio} Normal 0.9-2.4 [facility] Comment on above: Performed By: #### L 500.4100, L501.9520, L100.0100, L500.4050 ####[facility] [address] [place], [address] ALK P 119 U/L High 45-117 [facility] Comment on above: Performed By: #### L 500.4100, L501.9520, L100.0100, L500.4050 ####[facility] [address] [place], [address] ALT [Catalytic activity/Vol] 24 U/L Normal 16-61 [facility] Comment on above: Performed By: #### L 500.4100, L501.9520, L100.0100, L500.4050 ####[facility] [address] [place], [address] AST [Catalytic activity/Vol] 10 U/L Low 15-37 [facility] Comment on above: Performed By: #### L 500.4100, L501.9520, L100.0100, L500.4050 ####[facility] [address] [place], [address] Bilirubin [Mass/Vol] 0.50 mg/dL Normal 0.20-1.00 [facility] Comment on above: Result Comment: For patients on eltrombopag therapy, use of Dimension [place] TBIL is not recommended. Performed By: #### L 500.4100, L501.9520, L100.0100, L500.4050 ####[facility] [address] [place], [address] BUN/CRE 39.5 RATIO High 10-20 [facility] Comment on above: Performed By: #### L 500.4100, L501.9520, L100.0100, L500.4050 ####[facility] [address] [place], [address] CA,Total 8.9 mg/dL Normal 8.5-10.1 [facility] Comment on above: Performed By: #### L 500.4100, L501.9520, L100.0100, L500.4050 ####[facility] [address] [place], [address] Chloride [Moles/Vol] 112 mmol/L High 98-107 [facility] Comment on above: Performed By: #### L 500.4100, L501.9520, L100.0100, L500.4050 ####[facility] [address] [place], [address] CO2 [Moles/Vol] 23.0 mmol/L Normal 21.0-32.0 [facility] Comment on above: Performed By: #### L 500.4100, L501.9520, L100.0100, L500.4050 ####[facility] [address] [place], [address] Creatinine [Mass/Vol] 1.14 mg/dL Normal 0.70-1.30 [facility] Comment on above: Result Comment: The validity of the calculated GFR GFRAA in patients over70 years has not been determined. Clinical correlation isessential. Performed By: #### L 500.4100, L501.9520, L100.0100, L500.4050 ####[facility] [address] [place], [address] ECRCL 55.13 ml/min Normal [facility] Comment on above: Performed By: #### L 500.4100, L501.9520, L100.0100, L500.4050 ####[facility] [address] [place], [address] EST GFR - AA 80 mL/min Normal >60 [facility] Comment on above: Result Comment: Afri can Algerian GFR Calc Performed By: #### L 500.4100, L501.9520, L100.0100, L500.4050 ####[facility] [address] [place], [address] GAP 7 Normal 5-15 [facility] Comment on above: Performed By: #### L 500.4100, L501.9520, L100.0100, L500.4050 ####[facility] [address] [place], [address] GFR/1.73 sq M.predicted among non-blacks MDRD (S/P/Bld) [Vol rate/Area] 66 mL/min/{1.73_m2} Normal >60 [facility] Comment on above: Result Comment: Non- GFR Calc Performed By: #### L 500.4100, L501.9520, L100.0100, L500.4050 ####[facility] [address] [place], [address] Globulin (S) [Mass/Vol] 3.5 g/dL Normal 2.2-4.2 [facility] Comment on above: Performed By: #### L 500.4100, L501.9520, L100.0100, L500.4050 ####[facility] [address] [place], [address] Glucose [Mass/Vol] 108 mg/dL High 74-106 [facility] Comment on above: Result Comment: Fast ing Glucose result from 100 to 125 mg/dLsuggests IMPAIRED HOMEOSTASIS per A.D.A. criteria. Performed By: #### L 500.4100, L501.9520, L100.0100, L500.4050 ####[facility] [address] [place], [address] Potassium [Moles/Vol] 4.5 mmol/L Normal 3.5-5.1 [facility] Comment on above: Performed By: #### L 500.4100, L501.9520, L100.0100, L500.4050 ####[facility] [address] [place], [address] Sodium [Moles/Vol] 142 mmol/L Normal 136-145 [facility] Comment on above: Performed By: #### L 500.4100, L501.9520, L100.0100, L500.4050 ####[facility] [address] [place], [address] T PROT 6.5 g/dL Normal 6.4-8.2 [facility] Comment on above: Performed By: #### L 500.4100, L501.9520, L100.0100, L500.4050 ####[facility] [address] [place], [address] Urea nitrogen [Mass/Vol] 45 mg/dL High 7-18 [facility] Comment on above: Performed By: #### L 500.4100, L501.9520, L100.0100, L500.4050 ####[facility] [address] [place], [address] Consultation - Cardiologyon 04-09-2024 Consultation - Cardiology Normal [facility] High density lipoprotein (HD L) measurementOrdered By: Luba Villatoro on 04-09-2024 Cholesterol in HDL [Mass/Vol] 29 mg/dL Low >40 [facility] Comment on above: The drugs N-Acetylcy steine and Metamizole may falsely depress this assay. Reference Range HDL <40 mg/dL Low HDL Cholesterol HDL >or= 60 mg/dL High HDL Cholesterol L501.4020on 04-09-2024 TROPONIN-I HS 23 pg/mL Normal 3.0-78.0 [facility] Comment on above: Order Comment: 'TROP ' Serial specimen #1, #2 or #3: 3 Result Comment: Plea se Note: New Test Units and Gender Specific Reference Ranges. For more information see Policy Stat Procedure [place] High Sensitivity Troponin (TNIH) and attachments. Performed By: #### L 501.4020 ####[facility] [address] [place], [address] Laboratory - Chemistry and C hemistry - challengeOrdered By: Luba Villatoro on 04-09-2024 AST [Catalytic activity/Vol] 10 U/L Low 15-37 [facility] Legionella Antigen Urineon 0 04-09-2024 LEGU Normal [facility] Comment on above: Performed By: #### M 300.4600, M300.4500 ####[facility] [address] [place], [address] Lipid Profileon 04-09-2024 Cholesterol [Mass/Vol] 65 mg/dL Normal 200 [facility] Comment on above: Result Comment: <200 mg/dL Desirable 200-240 mg/dL Borderline >240 mg/dL High Risk Performed By: #### L 500.4100, L501.9520, L100.0100, L500.4050 ####[facility] [address] [place], [address] Cholesterol in HDL [Mass/Vol] 29 mg/dL Low [facility] Comment on above: Result Comment: The drugs N-Acetylcysteine and Metamizole may falselydepress this assay. Reference Range HDL <40 mg/dL Low HDL Cholesterol HDL >or= 60 mg/dL High HDL Cholesterol Performed By: #### L 500.4100, L501.9520, L100.0100, L500.4050 ####[facility] [address] [place], [address] Cholesterol in LDL [Mass/Vol] 17 mg/dL Normal 0-130 [facility] Comment on above: Performed By: #### L 500.4100, L501.9520, L100.0100, L500.4050 ####[facility] [address] [place], [address] Cholesterol in VLDL [Mass/Vol] 19 mg/dL Normal 5-40 [facility] Comment on above: Performed By: #### L 500.4100, L501.9520, L100.0100, L500.4050 ####[facility] [address] [place], [address] Triglyceride [Mass/Vol] 96 mg/dL Normal [facility] Comment on above: Result Comment: The drugs N-Acetylcysteine and Metamizole may falselydepress this assay.Serum Triglycerides Reference Interval Normal <150 mg/dL Borderline high 150 - 199 mg/dL High 200 - 499 mg/dL Very High > or = 500 mg/dL Performed By: #### L 500.4100, L501.9520, L100.0100, L500.4050 ####[facility] [address] [place], [place], [address] Low density lipoprotein (LDL ) cholesterol measurementOrdered By: Luba Villatoro on 04-09-2024 Cholesterol in LDL [Mass/Vol] 17 mg/dL 0-130 [facility] Procalcitoninon 04-09-2024 Procalcitonin 0.20 ng/mL High 0.00-0.09 [facility] Comment on above: Result Comment: A pr ocalcitonin (PCT) level above 2.0 ng/mL on the first day of ICU admission is associated with a high risk for progression to severe sepsis and/or septic shock. A PCT level below 0.5 ng/mL on the first day of ICU admission is associated with a low risk for progression to severe and/or septic shock. Note: Concentrations <0.5 ng/mL do not exclude an infection on account of localized infections (without systemic signs) which can be associated with such low concentrations, or a systemic infection in its initial stages (<6 hours). Furthermore, increased procalcitonin can occur without infection. PCT concentrations between 0.5 and 2.0 ng/mL should be interpreted taking into account the patient's history. It is recommended to retest PCT within 6-24 hours if any concentrations <2 ng/mL are obtained. Performed By: #### L 509.7000, L501.5200 ####[facility] [address] [place], [address] RESPIRATORY PANEL MOLECULARo n 04-09-2024 RP PANEL Normal [facility] Comment on above: Performed By: #### M 100.638 ####[facility] [address] [place], [address] Serum globulin measurementOr dered By: Luba Shauna on 04-09-2024 Globulin (S) [Mass/Vol] 3.5 g/dL 2.2-4.2 [facility] Serum or plasma alanine roblero otransferase (ALT) measurementOrdered By: [facility] on 04-09-2024 ALT [Catalytic activity/Vol] 24 U/L 16-61 [facility] Serum or plasma albumin lucio urement (mass/volume)Ordered By: [facility] on 04-09-2024 Albumin [Mass/Vol] 3.0 g/dL Low 3.2-5.0 [facility] Serum or plasma alkaline ravi sphatase measurementOrdered By: [facility] on 04-09-2024 ALP [Catalytic activity/Vol] 119 U/L High 45-117 [facility] Serum or plasma cholesterol measurement (mass/volume)Ordered By: [facility] on 04-09-2024 Cholesterol [Mass/Vol] 65 mg/dL <200 [facility] Comment on above: <200 mg/dL Desirable 200-240 mg/dL Borderline >240 mg/dL High Risk Strep pneumoniae Antig(UR,CS F)on 04-09-2024 STPAG Normal [facility] Comment on above: Performed By: #### M 300.4600, M300.4500 ####[facility] [address] [place], [address] Thyroid Stim Hormone (TSH)on 04-09-2024 TSH 2.930 uIU/mL Normal 0.358-3.740 [facility] Comment on above: Performed By: #### L 500.4100, L501.9520, L100.0100, L500.4050 ####[facility] [address] [place], [place], [address] Total proteinOrdered By: Lenora lauren Villatoro on 04-09-2024 Protein [Mass/Vol] 6.5 g/dL 6.4-8.2 [facility] Triglycerides measurementOrd ered By: Luba Villatoro on 04-09-2024 Triglyceride [Mass/Vol] 96 mg/dL <199 [facility] Comment on above: The drugs N-Acetylcy steine and Metamizole may falsely depress this assay.Serum Triglycerides Reference Interval Normal <150 mg/dL Borderline high 150 - 199 mg/dL High 200 - 499 mg/dL Very High > or = 500 mg/dL Troponin IOrdered By: Luba Villatoro on 04-09-2024 Troponin I 23 pg/mL 3.0-78.0 [facility] Comment on above: Please Note: New Minnie t Units and Gender Specific Reference Ranges. For more information see Policy Stat Procedure [place] High Sensitivity Troponin (TNIH) and attachments. Troponin I High Sensitivity 23 pg/mL 3.0-78.0 [facility] Comment on above: Please Note: New Minnie t Units and Gender Specific Reference Ranges. For more information see Policy Stat Procedure [place] High Sensitivity Troponin (TNIH) and attachments. Very low density lipoprotein (VLDL) cholesterol measurementOrdered By: Luba Villatoro on 04-09-2024 Very low density lipoprotein (VLDL) cholesterol measurement 19 mg/dL 5-40 [facility] VLDL Cholesterol 19 mg/dL 5-40 [facility] 12 Lead EKGon 04-08-2024 12 Lead EKG Normal [facility] BNP (brain natriuretic pepti de measurement)Ordered By: Mateo Cueto on 04-08-2024 Natriuretic peptide B (Bld) [Mass/Vol] 813.6 pg/mL High 0-100 [facility] BNP,B-Type NATRIURETIC PEPTI Albert 04-08-2024 Natriuretic peptide B (Bld) [Mass/Vol] 813.6 pg/mL High 0-100 [facility] Comment on above: Performed By: #### L 501.5411, L100.0100, L500.2500, L503.6620 ####[facility] [address] [place], [place], [address] Basic Metabolic Profile (BMP )on 04-08-2024 BUN/CRE 37.6 RATIO High 10-20 [facility] Comment on above: Order Comment: 1Y Performed By: #### L 501.5425, L100.0100, L500.2500, L503.6620 ####[facility] [address] [place], [address] CA,Total 9.1 mg/dL Normal 8.5-10.1 [facility] Comment on above: Order Comment: 1Y Performed By: #### L 501.5425, L100.0100, L500.2500, L503.6620 ####[facility] [address] [place], [address] Chloride [Moles/Vol] 113 mmol/L High 98-107 [facility] Comment on above: Order Comment: 1Y Performed By: #### L 501.5425, L100.0100, L500.2500, L503.6620 ####[facility] [address] [place], [address] CO2 [Moles/Vol] 22.0 mmol/L Normal 21.0-32.0 [facility] Comment on above: Order Comment: 1Y Performed By: #### L 501.5425, L100.0100, L500.2500, L503.6620 ####[facility] [address] [place], [address] Creatinine [Mass/Vol] 1.25 mg/dL Normal 0.70-1.30 [facility] Comment on above: Order Comment: 1Y Result Comment: The validity of the calculated GFR GFRAA in patients over70 years has not been determined. Clinical correlation isessential. Performed By: #### L 501.5425, L100.0100, L500.2500, L503.6620 ####[facility] [address] [place], [address] ECRCL 50.28 ml/min Normal [facility] Comment on above: Order Comment: 1Y Performed By: #### L 501.5425, L100.0100, L500.2500, L503.6620 ####[facility] [address] [place], [address] EST GFR - AA 72 mL/min Normal >60 [facility] Comment on above: Order Comment: 1Y Result Comment: Afri can Algerian GFR Calc Performed By: #### L 501.5425, L100.0100, L500.2500, L503.6620 ####[facility] [address] [place], [address] GAP 9 Normal 5-15 [facility] Comment on above: Order Comment: 1Y Performed By: #### L 501.5425, L100.0100, L500.2500, L503.6620 ####[facility] [address] [place], [address] GFR/1.73 sq M.predicted among non-blacks MDRD (S/P/Bld) [Vol rate/Area] 60 mL/min/{1.73_m2} Normal >60 [facility] Comment on above: Order Comment: 1Y Result Comment: Non- GFR Calc Performed By: #### L 501.5425, L100.0100, L500.2500, L503.6620 ####[facility] [address] [place], [address] Glucose [Mass/Vol] 116 mg/dL High 74-106 [facility] Comment on above: Order Comment: 1Y Result Comment: Fast ing Glucose result from 100 to 125 mg/dLsuggests IMPAIRED HOMEOSTASIS per A.D.A. criteria. Performed By: #### L 501.5425, L100.0100, L500.2500, L503.6620 ####[facility] [address] [place], [address] Potassium [Moles/Vol] 4.9 mmol/L Normal 3.5-5.1 [facility] Comment on above: Order Comment: 1Y Performed By: #### L 501.5425, L100.0100, L500.2500, L503.6620 ####[facility] [address] [place], [address] Sodium [Moles/Vol] 144 mmol/L Normal 136-145 [facility] Comment on above: Order Comment: 1Y Performed By: #### L 501.5425, L100.0100, L500.2500, L503.6620 ####[facility] [address] [place], [address] Urea nitrogen [Mass/Vol] 47 mg/dL High 7-18 [facility] Comment on above: Order Comment: 1Y Performed By: #### L 501.5425, L100.0100, L500.2500, L503.6620 ####[facility] [address] [place], [address] CBC W/Diff, Automatedon 01-2 -2024 Absolute Lymph 1.73 X10 3/uL Normal 0.83-4.51 [facility] Comment on above: Performed By: #### L 501.5425, L100.0100, L500.2500, L503.6620 ####[facility] [address] [place], [address] Absolute Neut 6.3 X10 3/uL Normal 2.0-7.7 [facility] Comment on above: Performed By: #### L 501.5425, L100.0100, L500.2500, L503.6620 ####[facility] [address] [place], [address] Basophils/100 WBC (Bld) 0.5 % Normal 0-1 [facility] Comment on above: Performed By: #### L 501.5425, L100.0100, L500.2500, L503.6620 ####[facility] [address] [place], [address] Eosinophils/100 WBC (Bld) 2.0 % Normal 0-5 [facility] Comment on above: Performed By: #### L 501.5425, L100.0100, L500.2500, L503.6620 ####[facility] [address] [place], [address] Erythrocyte distribution width (RBC) [Ratio] 15.6 % High 11.6-14.6 [facility] Comment on above: Performed By: #### L 501.5425, L100.0100, L500.2500, L503.6620 ####[facility] [address] [place], [address] Hematocrit (Bld) [Volume fraction] 34.6 % Low 40-54 [facility] Comment on above: Performed By: #### L 501.5425, L100.0100, L500.2500, L503.6620 ####[facility] [address] [place], [address] Hemoglobin (Bld) [Mass/Vol] 10.9 g/dL Low 13.0-16.5 [facility] Comment on above: Performed By: #### L 501.5425, L100.0100, L500.2500, L503.6620 ####[facility] [address] [place], [address] IG% 0.300 Normal 0.0-0.9 [facility] Comment on above: Result Comment: IG% - Immature Granulocytes (promyelocytes, myelocytes andmetamyelocytes) > 1% indicates that a LEFT SHIFT is Present. Performed By: #### L 501.5425, L100.0100, L500.2500, L503.6620 ####[facility] [address] [place], [address] Lymphocytes/100 WBC (Bld) 18.6 % Low 19-41 [facility] Comment on above: Performed By: #### L 501.5425, L100.0100, L500.2500, L503.6620 ####[facility] [address] [place], [address] MCH (RBC) [Entitic mass] 30.8 pg Normal 27.0-32.0 [facility] Comment on above: Performed By: #### L 501.5425, L100.0100, L500.2500, L503.6620 ####[facility] [address] [place], [address] MCHC (RBC) [Mass/Vol] 31.5 g/dL Low 32-36 [facility] Comment on above: Performed By: #### L 501.5425, L100.0100, L500.2500, L503.6620 ####[facility] [address] [place], [address] MCV (RBC) [Entitic vol] 97.7 fL High 80-94 [facility] Comment on above: Performed By: #### L 501.5425, L100.0100, L500.2500, L503.6620 ####[facility] [address] [place], [address] Monocytes/100 WBC (Bld) 10.5 % High 0-10 [facility] Comment on above: Performed By: #### L 501.5425, L100.0100, L500.2500, L503.6620 ####[facility] [address] [place], [address] Neutrophils/100 WBC (Bld) 68.1 % Normal 47-70 [facility] Comment on above: Performed By: #### L 501.5425, L100.0100, L500.2500, L503.6620 ####[facility] [address] [place], [address] Nucleated RBC (Bld) [#/Vol] 0 10*3/uL Normal 0-5 [facility] Comment on above: Performed By: #### L 501.5425, L100.0100, L500.2500, L503.6620 ####[facility] [address] [place], [address] Platelet mean volume (Bld) [Entitic vol] 11.4 fL Normal 6.2-12.0 [facility] Comment on above: Performed By: #### L 501.5425, L100.0100, L500.2500, L503.6620 ####[facility] [address] [place], [address] Platelets (Bld) [#/Vol] 283 10*3/uL Normal 150-450 [facility] Comment on above: Performed By: #### L 501.5425, L100.0100, L500.2500, L503.6620 ####[facility] [address] [place], [address] RBC (Bld) [#/Vol] 3.54 10*6/uL Low 4.6-6.2 [facility] Comment on above: Performed By: #### L 501.5425, L100.0100, L500.2500, L503.6620 ####[facility] [address] [place], [address] RDW SD 55.6 fl High 35.1-43.9 [facility] Comment on above: Performed By: #### L 501.5425, L100.0100, L500.2500, L503.6620 ####[facility] [address] [place], [address] WBC (Bld) [#/Vol] 9.3 10*3/uL Normal 4.4-11.0 [facility] Comment on above: Performed By: #### L 501.5425, L100.0100, L500.2500, L503.6620 ####[facility] [address] [place], [address] Chest 1 View (Portable)on Chest 1 View (Portable) Normal [facility] Echo Completeon 04-08-2024 Echo Complete Normal [facility] Emergency Department Summary on 04-08-2024 Emergency Department Summary Normal [facility] H AND P Exam - Hospitaliston 04-08-2024 H&P Exam - Hospitalist Normal [facility] Influenza virus A and B and SARS-CoV-2 (COVID-19) and Respiratory syncytial virus RNAOrdered By: Mateo Cueto on 04-08-2024 SARS-CoV-2 (COVID-19) RNA RADHA+probe Ql (Unsp spec) [facility] L. pneumophila Ag Ql (U)Orde red By: Luba White on 04-08-2024 Legionella Antigen [facility] L501.4020on 04-08-2024 TROPONIN-I HS 24 pg/mL Normal 3.0-78.0 [facility] Comment on above: Result Comment: Plea se Note: New Test Units and Gender Specific Reference Ranges. For more information see Policy Stat Procedure [place] High Sensitivity Troponin (TNIH) and attachments. Performed By: #### L 501.4020 ####[facility] [address] [place], [address] L501.5425on 04-08-2024 TROPONIN-I HS 25 pg/mL Normal 3.0-78.0 [facility] Comment on above: Order Comment: 1Y Result Comment: Plea se Note: New Test Units and Gender Specific Reference Ranges. For more information see Policy Stat Procedure [place] High Sensitivity Troponin (TNIH) and attachments. Performed By: #### L 501.5425, L100.0100, L500.2500, L503.6620 ####[facility] [address] [place], [address] M100.678on 04-08-2024 M100.678 Pending SARS-CoV-2 (COVID 19) Negative INFLUENZA A Negative INFLUENZA B Negative RSV PCR Negative Normal [facility] Comment on above: Performed By: #### M 100.678 ####[facility] [address] [place], [place], [address] Magnesiumon 04-08-2024 Magnesium [Mass/Vol] 2.1 mg/dL Normal 1.6-2.6 [facility] Comment on above: Order Comment: Comme nts: may add to ED labs Performed By: #### L 509.7000, L501.5200 ####[facility] [address] [place], [address] Magnesium measurementOrdered By: Luba Shauna on 04-08-2024 Magnesium [Mass/Vol] 2.1 mg/dL 1.6-2.6 [facility] Procalcitonin [Mass/Vol]Orde red By: Shauna on 04-08-2024 Procalcitonin 0.20 ng/mL High 0.00-0.09 [facility] Comment on above: A procalcitonin (PCT ) level above 2.0 ng/mL on the first day of ICU admission is associated with a high risk for progression to severe sepsis and/or septic shock. A PCT level below 0.5 ng/mL on the first day of ICU admission is associated with a low risk for progression to severe and/or septic shock. Note: Concentrations <0.5 ng/mL do not exclude an infection on account of localized infections (without systemic signs) which can be associated with such low concentrations, or a systemic infection in its initial stages (<6 hours). Furthermore, increased procalcitonin can occur without infection. PCT concentrations between 0.5 and 2.0 ng/mL should be interpreted taking into account the patient's history. It is recommended to retest PCT within 6-24 hours if any concentrations <2 ng/mL are obtained. Respiratory pathogens DNA an d RNA panel RADHA+probe (Resp)Ordered By: Luba Villatoro on 04-08-2024 Respiratory Panel (PCR) [facility] Respiratory pathogens detect ion panel by molecular detection methodOrdered By: Luba Shauna 04-08-2024 Respiratory pathogens DNA and RNA panel RADHA+probe (Resp) [facility] Serum procalcitonin measurem entOrdered By: Luba Villatoro on 04-08-2024 Procalcitonin [Mass/Vol] 0.20 ng/mL High 0.00-0.09 [facility] Comment on above: A procalcitonin (PCT ) level above 2.0 ng/mL on the first day of ICU admission is associated with a high risk for progression to severe sepsis and/or septic shock. A PCT level below 0.5 ng/mL on the first day of ICU admission is associated with a low risk for progression to severe and/or septic shock. Note: Concentrations <0.5 ng/mL do not exclude an infection on account of localized infections (without systemic signs) which can be associated with such low concentrations, or a systemic infection in its initial stages (<6 hours). Furthermore, increased procalcitonin can occur without infection. PCT concentrations between 0.5 and 2.0 ng/mL should be interpreted taking into account the patient's history. It is recommended to retest PCT within 6-24 hours if any concentrations <2 ng/mL are obtained. Streptococcus pneumoniae ant igen assayOrdered By: Luba Villatoro on 04-08-2024 Streptococcus pneumoniae Antigen (M [facility] Urine Legionella pneumophila antigen detectionOrdered By: [facility] Shauna on 04-08-2024 L. pneumophila Ag Ql (U) [facility] Absolute neutrophil countOrd ered By: Glen Wellington on 03-10-2024 Neutrophils (Bld) [#/Vol] 5.6 10*3/uL 2.0-7.7 [facility] Basophil percentageOrdered B y: Glen Wellington on 03-10-2024 Basophils/100 WBC (Bld) 0.6 % 0-1 [facility] CBC W/Diff, Automatedon 02-14 Absolute Lymph 1.17 X10 3/uL Normal 0.83-4.51 [facility] Comment on above: Performed By: #### L 100.0100 ####[facility] [address] [place], [address] Absolute Neut 5.6 X10 3/uL Normal 2.0-7.7 [facility] Comment on above: Performed By: #### L 100.0100 ####[facility] [address] [place], [address] Basophils/100 WBC (Bld) 0.6 % Normal 0-1 [facility] Comment on above: Performed By: #### L 100.0100 ####[facility] [address] [place], [address] Eosinophils/100 WBC (Bld) 2.3 % Normal 0-5 [facility] Comment on above: Performed By: #### L 100.0100 ####[facility] [address] [place], [address] Erythrocyte distribution width (RBC) [Ratio] 13.9 % Normal 11.6-14.6 [facility] Comment on above: Performed By: #### L 100.0100 ####[facility] [address] [place], [address] Hematocrit (Bld) [Volume fraction] 35.6 % Low 40-54 [facility] Comment on above: Performed By: #### L 100.0100 ####[facility] [address] [place], [address] Hemoglobin (Bld) [Mass/Vol] 11.2 g/dL Low 13.0-16.5 [facility] Comment on above: Performed By: #### L 100.0100 ####[facility] [address] [place], [address] IG% 0.400 Normal 0.0-0.9 [facility] Comment on above: Result Comment: IG% - Immature Granulocytes (promyelocytes, myelocytes andmetamyelocytes) > 1% indicates that a LEFT SHIFT is Present. Performed By: #### L 100.0100 ####[facility] [address] [place], [address] Lymphocytes/100 WBC (Bld) 15.0 % Low 19-41 [facility] Comment on above: Performed By: #### L 100.0100 ####[facility] [address] [place], [address] MCH (RBC) [Entitic mass] 30.6 pg Normal 27.0-32.0 [facility] Comment on above: Performed By: #### L 100.0100 ####[facility] [address] [place], [address] MCHC (RBC) [Mass/Vol] 31.5 g/dL Low 32-36 [facility] Comment on above: Performed By: #### L 100.0100 ####[facility] [address] [place], [address] MCV (RBC) [Entitic vol] 97.3 fL High 80-94 [facility] Comment on above: Performed By: #### L 100.0100 ####[facility] [address] [place], [address] Monocytes/100 WBC (Bld) 9.9 % Normal 0-10 [facility] Comment on above: Performed By: #### L 100.0100 ####[facility] [address] [place], [address] Neutrophils/100 WBC (Bld) 71.8 % High 47-70 [facility] Comment on above: Performed By: #### L 100.0100 ####[facility] [address] [place], [address] Nucleated RBC (Bld) [#/Vol] 0 10*3/uL Normal 0-5 [facility] Comment on above: Performed By: #### L 100.0100 ####[facility] [address] [place], [address] Platelet mean volume (Bld) [Entitic vol] 11.0 fL Normal 6.2-12.0 [facility] Comment on above: Performed By: #### L 100.0100 ####[facility] [address] [place], [address] Platelets (Bld) [#/Vol] 241 10*3/uL Normal 150-450 [facility] Comment on above: Performed By: #### L 100.0100 ####[facility] [address] [place], [address] RBC (Bld) [#/Vol] 3.66 10*6/uL Low 4.6-6.2 [facility] Comment on above: Performed By: #### L 100.0100 ####[facility] [address] [place], [address] RDW SD 49.6 fl High 35.1-43.9 [facility] Comment on above: Performed By: #### L 100.0100 ####[facility] [address] [place], [address] WBC (Bld) [#/Vol] 7.8 10*3/uL Normal 4.4-11.0 [facility] Comment on above: Performed By: #### L 100.0100 ####[facility] [address] [place], [address] Eosinophil percentageOrdered By: Glen Wellington on 03-10-2024 Eosinophils/100 WBC (Bld) 2.3 % 0-5 [facility] Erythrocyte distribution wid th ratioOrdered By: Glen Wellington on 03-10-2024 Erythrocyte distribution width (RBC) [Ratio] 13.9 % 11.6-14.6 [facility] Erythrocyte distribution wid th standard deviationOrdered By: Glen Wellington on 03-10-2024 Erythrocyte distribution width (RBC) [Entitic vol] 49.6 fL High 35.1-43.9 [facility] Hematocrit Auto (Bld) [Volum e fraction]Ordered By: Glen Wellington on 03-10-2024 Hematocrit (Bld) [Volume fraction] 35.6 % Low 40-54 [facility] Hemoglobin measurementOrdere d By: Glen Wellington on 03-10-2024 Hemoglobin (Bld) [Mass/Vol] 11.2 g/dL Low 13.0-16.5 [facility] Immature granulocytes/100 WB C Auto (Bld)Ordered By: Glen Wellington on 03-10-2024 Immature granulocytes/100 WBC (Bld) 0.400 % 0.0-0.9 [facility] Comment on above: IG% - Immature Granu locytes (promyelocytes, myelocytes and metamyelocytes) > 1% indicates that a LEFT SHIFT is Present. Lymphocytes Auto (Unsp spec) [#/Vol]Ordered By: Glen Wellington on 03-10-2024 Lymphocytes (Bld) [#/Vol] 1.17 10*3/uL 0.83-4.51 [facility] Lymphocytes/100 WBC Auto (Un sp spec)Ordered By: Glen Wellington on 03-10-2024 Lymphocytes/100 WBC (Bld) 15.0 % Low 19-41 [facility] MCV (mean corpuscular volume ) determinationOrdered By: Glen Wellington on 03-10-2024 MCV (RBC) [Entitic vol] 97.3 fL High 80-94 [facility] MR/BMS.BVSon 03-10-2024 MR/BMS.BVS Normal [facility] Mean corpuscular hemoglobin (MCH) determinationOrdered By: Glen Wellington on 03-10-2024 MCH (RBC) [Entitic mass] 30.6 pg 27.0-32.0 [facility] Mean corpuscular hemoglobin concentration (MCHC) determinationOrdered By: Glen Wellington on 03-10-2024 MCHC (RBC) [Mass/Vol] 31.5 g/dL Low 32-36 [facility] Mean platelet volume determi nationOrdered By: Glen Wellington on 03-10-2024 Platelet mean volume (Bld) [Entitic vol] 11.0 fL 6.2-12.0 [facility] Monocyte percentageOrdered B y: Glen Wellington on 03-10-2024 Monocytes/100 WBC (Bld) 9.9 % 0-10 [facility] Neutrophil percentageOrdered By: Glen Wellington on 03-10-2024 Neutrophils/100 WBC (Bld) 71.8 % High 47-70 [facility] Nucleated red blood cell per centageOrdered By: Glen Wellington on 03-10-2024 Nucleated RBC/100 WBC (Bld) [Ratio] 0 % 0-5 [facility] Platelet countOrdered By: Yisel Friasimelda on 03-10-2024 Platelets (Bld) [#/Vol] 241 10*3/uL 150-450 [facility] RBC Auto (Bld) [#/Vol]Ordere d By: Glen Wellington on 03-10-2024 RBC (Bld) [#/Vol] 3.66 10*6/uL Low 4.6-6.2 [facility] White blood cell (WBC) count Ordered By: Glen Shashiemilyimelda on 03-10-2024 WBC (Bld) [#/Vol] 7.8 10*3/uL 4.4-11.0 [facility] Radiation Oncology Visiton 1 04-20-2023 Radiation Oncology Visit Normal [facility] CBC W/Diff, Automatedon 01-14 Absolute Lymph 0.96 X10 3/uL Normal 0.83-4.51 [facility] Comment on above: Performed By: #### L 503.6030, L100.0100 ####[facility] [address] [place], [address] Absolute Neut 4.8 X10 3/uL Normal 2.0-7.7 [facility] Comment on above: Performed By: #### L 503.6030, L100.0100 ####[facility] [address] [place], [address] Basophils/100 WBC (Bld) 0.3 % Normal 0-1 [facility] Comment on above: Performed By: #### L 503.6030, L100.0100 ####[facility] [address] [place], [address] Eosinophils/100 WBC (Bld) 2.4 % Normal 0-5 [facility] Comment on above: Performed By: #### L 503.6030, L100.0100 ####[facility] [address] [place], [address] Erythrocyte distribution width (RBC) [Ratio] 14.8 % High 11.6-14.6 [facility] Comment on above: Performed By: #### L 503.6030, L100.0100 ####[facility] [address] [place], [address] Hematocrit (Bld) [Volume fraction] 29.3 % Low 40-54 [facility] Comment on above: Performed By: #### L 503.6030, L100.0100 ####[facility] [address] [place], [address] Hemoglobin (Bld) [Mass/Vol] 9.5 g/dL Low 13.0-16.5 [facility] Comment on above: Performed By: #### L 503.6030, L100.0100 ####[facility] [address] [place], [address] IG% 0.600 Normal 0.0-0.9 [facility] Comment on above: Result Comment: IG% - Immature Granulocytes (promyelocytes, myelocytes andmetamyelocytes) > 1% indicates that a LEFT SHIFT is Present. Performed By: #### L 503.6030, L100.0100 ####[facility] [address] [place], [address] Lymphocytes/100 WBC (Bld) 14.1 % Low 19-41 [facility] Comment on above: Performed By: #### L 503.6030, L100.0100 ####[facility] [address] [place], [address] MCH (RBC) [Entitic mass] 31.6 pg Normal 27.0-32.0 [facility] Comment on above: Performed By: #### L 503.6030, L100.0100 ####[facility] [address] [place], [address] MCHC (RBC) [Mass/Vol] 32.4 g/dL Normal 32-36 [facility] Comment on above: Performed By: #### L 503.6030, L100.0100 ####[facility] [address] [place], [address] MCV (RBC) [Entitic vol] 97.3 fL High 80-94 [facility] Comment on above: Performed By: #### L 503.6030, L100.0100 ####[facility] [address] [place], [address] Monocytes/100 WBC (Bld) 11.3 % High 0-10 [facility] Comment on above: Performed By: #### L 503.6030, L100.0100 ####[facility] [address] [place], [address] Neutrophils/100 WBC (Bld) 71.3 % High 47-70 [facility] Comment on above: Performed By: #### L 503.6030, L100.0100 ####[facility] [address] [place], [address] Nucleated RBC (Bld) [#/Vol] 0 10*3/uL Normal 0-5 [facility] Comment on above: Performed By: #### L 503.6030, L100.0100 ####[facility] [address] [place], [address] Platelet mean volume (Bld) [Entitic vol] 11.0 fL Normal 6.2-12.0 [facility] Comment on above: Performed By: #### L 503.6030, L100.0100 ####[facility] [address] [place], [address] Platelets (Bld) [#/Vol] 211 10*3/uL Normal 150-450 [facility] Comment on above: Performed By: #### L 503.6030, L100.0100 ####[facility] [address] [place], [address] RBC (Bld) [#/Vol] 3.01 10*6/uL Low 4.6-6.2 [facility] Comment on above: Performed By: #### L 503.6030, L100.0100 ####[facility] [address] [place], [address] RDW SD 53.0 fl High 35.1-43.9 [facility] Comment on above: Performed By: #### L 503.6030, L100.0100 ####[facility] [address] [place], [address] WBC (Bld) [#/Vol] 6.8 10*3/uL Normal 4.4-11.0 [facility] Comment on above: Performed By: #### L 503.6030, L100.0100 ####[facility] [address] [place], [address] Internal Medicine Office Vis iton 02-02-2024 Internal Medicine Office Visit Normal [facility] Iron+Iron Binding Capacityon 02-02-2024 Iron [Mass/Vol] 66 ug/dL Normal 65-175 [facility] Comment on above: Performed By: #### L 503.6030, L100.0100 ####[facility] [address] [place], [address] IRON SATURATION 25.5 Normal 15.0-55.0 [facility] Comment on above: Performed By: #### L 503.6030, L100.0100 ####[facility] [address] [place], [address] TIBC 259 ug/dL Normal 250-450 [facility] Comment on above: Performed By: #### L 503.6030, L100.0100 ####[facility] [address] [place], [address] Basophil percentageOrdered B y: Sharonlianna Bernard on 07-21-2023 Basophil percentage 0.36 ng/mL 0.0-4.0 [facility] Comment on above: This test was perfor med using the TPSA assay method for the[employer] chemistry system. Values obtained with differentassay methods cannot be used interchangably.When changing PSA assays in the course of monitoring apatient, additional sequential testing should be carriedout to confirm baseline values. Basophil percentageOrdered B y: Nazario Colby on 05-27-2023 Basophil percentage < 1.0 mg/dL 0.70-1.30 [facility] No Panel InformationOrdered By: Nazario Colby on 05-27-2023 Bedside Estimated GFR (eGFR) > 60.0000 mL/min >60 [facility] Basophil percentageOrdered B y: Brendan Lloyd on 03-26-2023 Cholesterol [Mass/Vol] 109 mg/dL <200 [facility] Comment on above: <200 mg/dL Desirable 200-240 mg/dL Borderline >240 mg/dL High Risk Triglyceride [Mass/Vol] 119 mg/dL <199 [facility] Comment on above: The drugs N-Acetylcy steine and Metamizole may falsely depress this assay.Serum Triglycerides Reference Interval Normal <150 mg/dL Borderline high 150 - 199 mg/dL High 200 - 499 mg/dL Very High > or = 500 mg/dL Laboratory - Chemistry and C hemistry - challengeOrdered By: Brendan Lloyd on 03-26-2023 ALT [Catalytic activity/Vol] 31 U/L 16-61 [facility] CK [Catalytic activity/Vol] 92 U/L 39-308 [facility] No Panel InformationOrdered By: Brendan Lloyd on 03-26-2023 Thyroid Stimulating Hormone (TSH) 2.22 uIU/mL 0.358-3.74 [facility] Serum or plasma cholesterol in HDL measurement (mass/volume)Ordered By: Brendan Lloyd on 03-26-2023 Cholesterol in HDL [Mass/Vol] 33 mg/dL >40 [facility] Comment on above: The drugs N-Acetylcy steine and Metamizole may falsely depress this assay. Reference Range HDL <40 mg/dL Low HDL Cholesterol HDL >or= 60 mg/dL High HDL Cholesterol Serum or plasma cholesterol in VLDL measurement (mass/volume)Ordered By: Brendan Lloyd on 03-26-2023 Cholesterol in VLDL [Mass/Vol] 24 mg/dL 5-40 [facility] Serum or plasma low density lipoprotein (LDL) cholesterol measurement (mass/volume)Ordered By: Brendan Lolyd on 03-26-2023 Cholesterol in LDL [Mass/Vol] 52 mg/dL 0-130 [facility] Thin prep Papanicolaou smear with manual screeningOrdered By: Brendan Lloyd on 03-26-2023 Thin prep Papanicolaou smear with manual screening 18 U/L 15-37 [facility] No Panel InformationOrdered By: Jam Cohen on 02-24-2023 Prostate Specific Antigen Total 9.15 ng/mL 0.0-4.0 [facility] Comment on above: This test was perfor med using the TPSA assay method [facility] ([place], [place]) chemistry system. Values obtained with differentassay methods cannot be used interchangably.When changing PSA assays in the course of monitoring apatient, additional sequential testing should be carriedout to confirm baseline values. Basophil percentageOrdered B y: Kayla Rubin on 11-20-2022 Creatinine [Mass/Vol] 1.2 mg/dL 0.70-1.30 [facility] No Panel InformationOrdered By: Kayla Rubin on 11-20-2022 Bedside Estimated GFR (eGFR) > 60.0000 mL/min >60 [facility] Basophil percentageOrdered B y: Brendan Lloyd on 09-17-2022 Bilirubin [Mass/Vol] 0.50 mg/dL 0.20-1.00 [facility] Comment on above: For patients on eltr ombopag therapy, use of Dimension [place] TBIL is not recommended. Chloride [Moles/Vol] 105 mmol/L 98-107 [facility] Glucose [Mass/Vol] 88 mg/dL 74-106 [facility] Potassium [Moles/Vol] 4.3 mmol/L 3.5-5.1 [facility] Protein [Mass/Vol] 6.9 g/dL 6.4-8.2 [facility] Sodium [Moles/Vol] 137 mmol/L 136-145 [facility] Laboratory - Chemistry and C hemistry - challengeOrdered By: Brendan Lloyd on 09-17-2022 ALP [Catalytic activity/Vol] 91 U/L 45-117 [facility] ALT [Catalytic activity/Vol] 21 U/L 16-61 [facility] CO2 [Moles/Vol] 28.0 mmol/L 21.0-32.0 [facility] Globulin (S) [Mass/Vol] 3.4 g/dL 2.2-4.2 [facility] Urea nitrogen/Creatinine [Mass ratio] 18.8 mg/mg 10-20 [facility] No Panel InformationOrdered By: Brendan Lloyd on 09-17-2022 Estimated GFR (MDRD) Amer 93 mL/min >60 [facility] Comment on above: GFR Calc Estimated GFR (MDRD) Non-Af Amer 77 mL/min >60 [facility] Comment on above: Non- GFR Calc Thyroid Stimulating Hormone (TSH) 3.62 uIU/mL 0.358-3.74 [facility] Serum or plasma albumin lucio urement (mass/volume)Ordered By: Brendan Lloyd on 09-17-2022 Albumin [Mass/Vol] 3.5 g/dL 3.2-5.0 [facility] Serum or plasma albumin/glob ulin mass ratioOrdered By: Brendan Lloyd on 09-17-2022 Albumin/Globulin [Mass ratio] 1.0 {ratio} 0.9-2.4 [facility] Serum or plasma calcium lucio urement (mass/volume)Ordered By: Brendan Lloyd on 09-17-2022 Calcium [Mass/Vol] 8.7 mg/dL 8.5-10.1 [facility] Serum or plasma creatinine m easurement (mass/volume)Ordered By: Brendan Lloyd on 09-17-2022 Creatinine [Mass/Vol] 1.01 mg/dL 0.70-1.30 [facility] Comment on above: The validity of the calculated GFR & GFRAA in patients over 70 years has not been determined. Clinical correlation is essential. Serum or plasma urea nitroge n measurement (mass/volume)Ordered By: Brendan Lloyd on 09-17-2022 Urea nitrogen [Mass/Vol] 19 mg/dL 7-18 [facility] Thin prep Papanicolaou smear with manual screeningOrdered By: Brendan Lloyd on 09-17-2022 Thin prep Papanicolaou smear with manual screening 16 U/L 15-37 [facility] Thin prep Papanicolaou smear with manual screening 4 5-15 [facility] Basophil percentageOrdered B y: Santosh Velazquez on 08-07-2022 Basophil percentage 0 SEEN /hpf 0-5 [facility] Bilirubin Test strip Ql (U)O rdered By: Santosh Velazquez on 08-07-2022 Bilirubin Ql (U) Negative Negative [facility] Ketones Test strip Ql (U)Ord ered By: Santosh Brown on 08-07-2022 Ketones Ql (U) Negative Negative [facility] Mucus LM Ql (Urine sed)Order ed By: Santosh Velazquez on 08-07-2022 Mucus Ql (Urine sed) 0 SEEN /hpf [facility] Nitrite Test strip Ql (U)Ord ered By: Santosh Brown on 08-07-2022 Nitrite Ql (U) Negative Negative [facility] Protein Test strip Ql (U)Ord ered By: Santosh Brown on 08-07-2022 Protein Ql (U) Negative Negative [facility] Squamous epithelial cells de tection in urine sediment by light microscopyOrdered By: Santosh Velazquez on 08-07-2022 Epithelial cells.squamous LM Ql (Urine sed) 0 SEEN /hpf 0-5 [facility] Urine blood detectionOrdered By: Santosh Velazquez on 08-07-2022 RBC Ql (U) Negative Negative [facility] RBC Ql (U) 0 SEEN /hpf 0-5 [facility] Urine clarityOrdered By: Trevor Velazquez on 08-07-2022 Clarity (U) Clear Clear [facility] Urine color determinationOrd ered By: Santoshchrystal Velazquez on 08-07-2022 Color (U) Straw Yellow [facility] Urine glucose detectionOrder ed By: Santosh Velazquez on 08-07-2022 Glucose Ql (U) Normal mg/dl Normal [facility] Urine leukocyte esterase det ection by dipstickOrdered By: Santosh Velazquez on 08-07-2022 Leukocyte esterase Test strip Ql (U) Negative Negative [facility] Urine pHOrdered By: Santosh Velazquez on 08-07-2022 pH (U) 6.5 [pH] 5.0 - 8.0 [facility] Urine sediment bacteria coun t by microscopy (number/high power field)Ordered By: Santosh Velazquez on 08-07-2022 Bacteria LM.HPF (Urine sed) [#/Area] 0 /[HPF] None Seen [facility] Urine specific gravity measu rementOrdered By: Santosh Velazquez on 08-07-2022 Specific gravity (U) [Rel density] 1.010 1.002-1.030 [facility] Urobilinogen Auto test strip Ql (U)Ordered By: Santosh Velazquez on 08-07-2022 Urobilinogen Ql (U) Normal mg/dl Normal [facility] Dexter 06-26-2022 ELLY Telephone (KATHIESimpleOrder) NIKKO BARAJAS ([id number]) 1945 M Date Time Provider Department 06/26/22 ARABELLA HAMILTON BRUNA During your visit today, we recorded the following information about you: Radha Dewayne 06/26/2022 9:23 AM Signed Called Pt to schedule annual testing/follow up - Pt said he had surgery in Oct 2021 w/ [facility] on his carotid artery and does not need to be seen. Allergies As of Date: 06/26/2022 Noted Allergy Reaction BEE POLLEN 07/12/2018 1 - Mental Status Change Date Reviewed: 08/08/2021 Reviewed by: Arabella Hamilton MD - Fully Assessed Reason for Visit: Appointment [186] Cmt: Appointment Prescriptions as of 06/26/2022 - tiotropium bromide (SPIRIVA RESPIMAT INHALATION) Inhale as instructed once daily. - omega-3s/dha/epa/fis h oil/D3 (VITAMIN-D + OMEGA-3 ORAL) Take 3 tablets by mouth once daily. - allopurinol (ZYLOPRIM) 300 mg tablet allopurinol ALLOPURINOL 300 MG TABS One tablet by mouth daily ALLOPURINOL [id number] Shazia Perez RN 06-13-2010 [facility] ([id number]) - lisinopril (ZESTRIL, PRINIVIL) 20 mg tablet Take 20 mg by mouth once daily. - atorvastatin (LIPITOR) 40 mg tablet Take 40 mg by mouth once daily. - aspirin, enteric coated (ASPIRIN, ENTERIC COATED) 325 mg EC tablet aspirin ECOTRIN 325 MG TBEC One tablet by mouth daily ASPIRIN [id number] Shazia Perez RN 06-13-2010 [facility] ([id number]) - nitroglycerin sublingual (NITROQUICK) 0.4 mg SL tablet nitroglycerin NITROSTAT 0.4 MG SUBL 1 tablet under the tongue every 5 minutes times 3 as needed for chest pain. NITROGLYCERIN [id number] Tyson Leroy MD 06-13-2010 Yessica Cobian RN [facility] ([id number]) - pantoprazole DR (PROTONIX) 40 mg tablet q 24 HR. - clopidogrel (PLAVIX) 75 mg tablet Take 75 mg by mouth once daily. - metoprolol tartrate, short acting, (LOPRESSOR) 25 mg tablet Take 25 mg by mouth twice daily. - albuterol HFA (PROAIR HFA) 90 mcg/actuation inhaler Inhale 2 Puffs as instructed every 4 hours as needed. Problem List As Of Date: 06/26/2022 (None) Encounter Status:Closed by RADHA BUCHANAN on 06/26/22 [facility] Basophil percentageOrdered B y: Dr. Vance on 03-22-2022 Bilirubin [Mass/Vol] 0.40 mg/dL 0.20-1.00 [facility] Comment on above: For patients on eltr ombopag therapy, use of Dimension [place] TBIL is not recommended. Chloride [Moles/Vol] 106 mmol/L 98-107 [facility] Glucose [Mass/Vol] 103 mg/dL 74-106 [facility] Comment on above: Fasting Glucose resu lt from 100 to 125 mg/dL suggests IMPAIRED HOMEOSTASIS per A.D.A. criteria. Potassium [Moles/Vol] 4.2 mmol/L 3.5-5.1 [facility] Protein [Mass/Vol] 6.4 g/dL 6.4-8.2 [facility] Sodium [Moles/Vol] 140 mmol/L 136-145 [facility] WBC (Bld) [#/Vol] 9.2 10*3/uL 4.4-11.0 [facility] Blood erythrocytes count (nu mber/volume)Ordered By: Dr. Vance on 03-22-2022 RBC (Bld) [#/Vol] 4.04 10*6/uL 4.6-6.2 [facility] Blood hemoglobin measurement (mass/volume)Ordered By: Dr. Vance on 03-22-2022 Hemoglobin (Bld) [Mass/Vol] 12.5 g/dL 13.0-16.5 [facility] Blood platelet mean volumeOr dered By: Dr. Vance on 03-22-2022 Platelet mean volume (Bld) [Entitic vol] 11.0 fL 6.2-12.0 [facility] Determination of erythrocyte mean corpuscular volume (MCV)Ordered By: Dr. Vance on 03-22-2022 MCV (RBC) [Entitic vol] 91.8 fL 80-94 [facility] Hematocrit Auto (Bld) [Volum e fraction]Ordered By: Dr. Vance on 03-22-2022 Hematocrit (Bld) [Volume fraction] 37.1 % 40-54 [facility] Laboratory - Chemistry and C hemistry - challengeOrdered By: Dr. Vance on 03-22-2022 ALP [Catalytic activity/Vol] 73 U/L 45-117 [facility] ALT [Catalytic activity/Vol] 35 U/L 16-61 [facility] CO2 [Moles/Vol] 28.0 mmol/L 21.0-32.0 [facility] Globulin (S) [Mass/Vol] 3.2 g/dL 2.2-4.2 [facility] Urea nitrogen/Creatinine [Mass ratio] 23.5 mg/mg 10-20 [facility] Laboratory - Hematology and Cell countsOrdered By: Dr. Vance on 03-22-2022 Erythrocyte distribution width (RBC) [Entitic vol] 47.9 fL 35.1-43.9 [facility] Erythrocyte distribution width (RBC) [Ratio] 14.3 % 11.6-14.6 [facility] MCH (RBC) [Entitic mass] 30.9 pg 27.0-32.0 [facility] MCHC Auto (RBC) [Mass/Vol]Or dered By: Dr. Vance on 03-22-2022 MCHC (RBC) [Mass/Vol] 33.7 g/dL 32-36 [facility] No Panel InformationOrdered By: Dr. Vance on 03-22-2022 Estimated Creatinine Clearance Calc 72.82 ml/min [facility] Estimated GFR (MDRD) Amer 107 mL/min >60 [facility] Comment on above: GFR Calc Estimated GFR (MDRD) Non-Af Amer 88 mL/min >60 [facility] Comment on above: Non- GFR Calc Platelets bldOrdered By: Dr. Vance on 03-22-2022 Platelets (Bld) [#/Vol] 197 10*3/uL 150-450 [facility] Serum or plasma albumin lucio urement (mass/volume)Ordered By: Dr. Vance on 03-22-2022 Albumin [Mass/Vol] 3.2 g/dL 3.2-5.0 [facility] Serum or plasma albumin/glob ulin mass ratioOrdered By: Dr. Vance on 03-22-2022 Albumin/Globulin [Mass ratio] 1.0 {ratio} 0.9-2.4 [facility] Serum or plasma calcium lucio urement (mass/volume)Ordered By: Dr. Vance on 03-22-2022 Calcium [Mass/Vol] 8.6 mg/dL 8.5-10.1 [facility] Serum or plasma creatinine m easurement (mass/volume)Ordered By: Dr. Vance on 03-22-2022 Creatinine [Mass/Vol] 0.89 mg/dL 0.70-1.30 [facility] Comment on above: The validity of the calculated GFR & GFRAA in patients over 70 years has not been determined. Clinical correlation is essential. Serum or plasma urea nitroge n measurement (mass/volume)Ordered By: Dr. Vance on 03-22-2022 Urea nitrogen [Mass/Vol] 21 mg/dL 7-18 [facility] Thin prep Papanicolaou smear with manual screeningOrdered By: Dr. Vance on 03-22-2022 Thin prep Papanicolaou smear with manual screening 13 U/L 15-37 [facility] Thin prep Papanicolaou smear with manual screening 6 5-15 [facility] No Panel InformationOrdered By: Dr. Vance on 03-21-2022 Activated Clotting Time 161 sec 74-137 [facility] Absolute lymphocyte countOrd ered By: Fabiola Escamilla on 02-28-2022 Lymphocytes Auto (Unsp spec) [#/Vol] 2.03 10*3/uL 0.83-4.51 [facility] Basophil percentageOrdered B y: Fabiola Escamilla on 02-28-2022 Basophils/100 WBC (Bld) 0.6 % 0-1 [facility] Chloride [Moles/Vol] 105 mmol/L 98-107 [facility] Eosinophils/100 WBC (Bld) 3.3 % 0-5 [facility] Glucose [Mass/Vol] 92 mg/dL 74-106 [facility] Neutrophils (Bld) [#/Vol] 5.8 10*3/uL 2.0-7.7 [facility] Neutrophils/100 WBC (Bld) 64.3 % 47-70 [facility] Potassium [Moles/Vol] 4.5 mmol/L 3.5-5.1 [facility] Sodium [Moles/Vol] 139 mmol/L 136-145 [facility] WBC (Bld) [#/Vol] 9.1 10*3/uL 4.4-11.0 [facility] Blood erythrocytes count (nu mber/volume)Ordered By: Fabiola Escamilla on 02-28-2022 RBC (Bld) [#/Vol] 4.19 10*6/uL 4.6-6.2 [facility] Blood hemoglobin measurement (mass/volume)Ordered By: Fabiola Escamilla on 02-28-2022 Hemoglobin (Bld) [Mass/Vol] 13.0 g/dL 13.0-16.5 [facility] Blood lymphocytes/100 leukoc ytesOrdered By: Fabiola Escamilla on 02-28-2022 Lymphocytes/100 WBC (Bld) 22.4 % 19-41 [facility] Blood monocytes/100 leukocyt esOrdered By: Fabiola Escamilla on 02-28-2022 Monocytes/100 WBC (Bld) 9.0 % 0-10 [facility] Blood platelet mean volumeOr dered By: Fabiola Escamilla on 02-28-2022 Platelet mean volume (Bld) [Entitic vol] 11.5 fL 6.2-12.0 [facility] Determination of erythrocyte mean corpuscular volume (MCV)Ordered By: Fabiola Escamilla on 02-28-2022 MCV (RBC) [Entitic vol] 94.5 fL 80-94 [facility] Hematocrit Auto (Bld) [Volum e fraction]Ordered By: Fabiola Escamilla on 02-28-2022 Hematocrit (Bld) [Volume fraction] 39.6 % 40-54 [facility] INR in Blood by Coagulation assayOrdered By: Fabiola Escamilla on 02-28-2022 INR Coag (Bld) [Relative time] 1.3 {INR} [facility] Laboratory - Chemistry and C hemistry - challengeOrdered By: Fabiola Escamilla on 02-28-2022 CO2 [Moles/Vol] 32.0 mmol/L 21.0-32.0 [facility] Urea nitrogen/Creatinine [Mass ratio] 14.5 mg/mg 10-20 [facility] Laboratory - CoagulationOrde red By: Fabiola Escamilla on 02-28-2022 aPTT Coag (Bld) [Time] 38.5 s 24.1-36.2 [facility] PT Coag (PPP) [Time] 15.7 s 11.7-14.9 [facility] Laboratory - Hematology and Cell countsOrdered By: Fabiola Escamilla on 02-28-2022 Erythrocyte distribution width (RBC) [Entitic vol] 48.3 fL 35.1-43.9 [facility] Erythrocyte distribution width (RBC) [Ratio] 13.9 % 11.6-14.6 [facility] Immature granulocytes/100 WBC (Bld) 0.400 % 0.0-0.9 [facility] Comment on above: IG% - Immature Granu locytes (promyelocytes, myelocytes and metamyelocytes) > 1% indicates that a LEFT SHIFT is Present. MCH (RBC) [Entitic mass] 31.0 pg 27.0-32.0 [facility] Nucleated RBC/100 WBC (Bld) [Ratio] 0 % 0-5 [facility] MCHC Auto (RBC) [Mass/Vol]Or dered By: Fabiola Escamilla on 02-28-2022 MCHC (RBC) [Mass/Vol] 32.8 g/dL 32-36 [facility] No Panel InformationOrdered By: Fabiola Escamilla on 02-28-2022 Estimated GFR (MDRD) Amer 107 mL/min >60 [facility] Comment on above: GFR Calc Estimated GFR (MDRD) Non-Af Amer 88 mL/min >60 [facility] Comment on above: Non- GFR Calc Platelets bldOrdered By: Carson Escamilla on 02-28-2022 Platelets (Bld) [#/Vol] 225 10*3/uL 150-450 [facility] Serum or plasma calcium lucio urement (mass/volume)Ordered By: Fabiola Escamilla on 02-28-2022 Calcium [Mass/Vol] 9.3 mg/dL 8.5-10.1 [facility] Serum or plasma creatinine m easurement (mass/volume)Ordered By: Fabiola Escamilla on 02-28-2022 Creatinine [Mass/Vol] 0.89 mg/dL 0.70-1.30 [facility] Comment on above: The validity of the calculated GFR & GFRAA in patients over 70 years has not been determined. Clinical correlation is essential. Serum or plasma urea nitroge n measurement (mass/volume)Ordered By: Fabiola Escamilla on 02-28-2022 Urea nitrogen [Mass/Vol] 13 mg/dL 7-18 [facility] Thin prep Papanicolaou smear with manual screeningOrdered By: Fabiola Escamilla on 02-28-2022 Thin prep Papanicolaou smear with manual screening 2 5-15 [facility] Basophil percentageOrdered B y: Dr. Cohen on 01-17-2022 Chloride [Moles/Vol] 105 mmol/L 98-107 [facility] Glucose [Mass/Vol] 96 mg/dL 74-106 [facility] Potassium [Moles/Vol] 4.3 mmol/L 3.5-5.1 [facility] Sodium [Moles/Vol] 141 mmol/L 136-145 [facility] WBC (Bld) [#/Vol] 8.9 10*3/uL 4.4-11.0 [facility] Blood erythrocytes count (nu mber/volume)Ordered By: Dr. Cohen on 01-17-2022 RBC (Bld) [#/Vol] 3.95 10*6/uL 4.6-6.2 [facility] Blood hemoglobin measurement (mass/volume)Ordered By: Dr. Cohen on 01-17-2022 Hemoglobin (Bld) [Mass/Vol] 12.5 g/dL 13.0-16.5 [facility] Blood platelet mean volumeOr dered By: Dr. Cohen on 01-17-2022 Platelet mean volume (Bld) [Entitic vol] 11.2 fL 6.2-12.0 [facility] Determination of erythrocyte mean corpuscular volume (MCV)Ordered By: Dr. Cohen on 01-17-2022 MCV (RBC) [Entitic vol] 93.4 fL 80-94 [facility] Hematocrit Auto (Bld) [Volum e fraction]Ordered By: Dr. Cohen on 01-17-2022 Hematocrit (Bld) [Volume fraction] 36.9 % 40-54 [facility] Laboratory - Chemistry and C hemistry - challengeOrdered By: Dr. Cohen on 01-17-2022 CO2 [Moles/Vol] 30.0 mmol/L 21.0-32.0 [facility] Urea nitrogen/Creatinine [Mass ratio] 15.0 mg/mg 10-20 [facility] Laboratory - Hematology and Cell countsOrdered By: Dr. Cohen on 01-17-2022 Erythrocyte distribution width (RBC) [Entitic vol] 47.2 fL 35.1-43.9 [facility] Erythrocyte distribution width (RBC) [Ratio] 14.1 % 11.6-14.6 [facility] MCH (RBC) [Entitic mass] 31.6 pg 27.0-32.0 [facility] MCHC Auto (RBC) [Mass/Vol]Or dered By: Dr. Cohen on 01-17-2022 MCHC (RBC) [Mass/Vol] 33.9 g/dL 32-36 [facility] No Panel InformationOrdered By: Dr. Cohen on 01-17-2022 Estimated GFR (MDRD) Amer 111 mL/min >60 [facility] Comment on above: GFR Calc Estimated GFR (MDRD) Non-Af Amer 91 mL/min >60 [facility] Comment on above: Non- GFR Calc Platelets bldOrdered By: Dr. Cohen on 01-17-2022 Platelets (Bld) [#/Vol] 200 10*3/uL 150-450 [facility] Serum or plasma calcium lucio urement (mass/volume)Ordered By: Dr. Cohen on 01-17-2022 Calcium [Mass/Vol] 8.9 mg/dL 8.5-10.1 [facility] Serum or plasma creatinine m easurement (mass/volume)Ordered By: Dr. Cohen on 01-17-2022 Creatinine [Mass/Vol] 0.87 mg/dL 0.70-1.30 [facility] Comment on above: The validity of the calculated GFR & GFRAA in patients over 70 years has not been determined. Clinical correlation is essential. Serum or plasma urea nitroge n measurement (mass/volume)Ordered By: Dr. Cohen on 01-17-2022 Urea nitrogen [Mass/Vol] 13 mg/dL 7-18 [facility] Thin prep Papanicolaou smear with manual screeningOrdered By: Dr. Cohen on 01-17-2022 Thin prep Papanicolaou smear with manual screening 6 5-15 [facility] Absolute lymphocyte counton 11-16-2021 Lymphocytes Auto (Unsp spec) [#/Vol] 2.00 10*3/uL 0.83-4.51 [facility] Work Phone: Basophil percentageon 2021 Basophils/100 WBC (Bld) 0.3 % 0-1 [facility] Work Phone: Bilirubin [Mass/Vol] 0.60 mg/dL 0.20-1.00 [facility] Work Phone: Comment on above: For patients on eltr ombopag therapy, use of Dimension [place] TBIL is not recommended. Chloride [Moles/Vol] 106 mmol/L 98-107 [facility] Work Phone: Eosinophils/100 WBC (Bld) 2.1 % 0-5 [facility] Work Phone: Glucose [Mass/Vol] 107 mg/dL 74-106 [facility] Work Phone: Comment on above: Fasting Glucose resu lt from 100 to 125 mg/dL suggests IMPAIRED HOMEOSTASIS per A.D.A. criteria. Neutrophils (Bld) [#/Vol] 9.8 10*3/uL 2.0-7.7 [facility] Work Phone: Neutrophils/100 WBC (Bld) 73.5 % 47-70 [facility] Work Phone: [phone] Potassium [Moles/Vol] 4.3 mmol/L 3.5-5.1 [facility] Work Phone: Comment on above: Slight Hemolysis, Re sult may be falsely increased. Protein [Mass/Vol] 6.5 g/dL 6.4-8.2 [facility] Work Phone: Sodium [Moles/Vol] 137 mmol/L 136-145 [facility] Work Phone: WBC (Bld) [#/Vol] 13.4 10*3/uL 4.4-11.0 [facility] Work Phone: Blood erythrocytes count (nu mber/volume)on 11-16-2021 RBC (Bld) [#/Vol] 3.85 10*6/uL 4.6-6.2 [facility] Work [facility]: Blood hemoglobin measurement (mass/volume)on 11-16-2021 Hemoglobin (Bld) [Mass/Vol] 12.2 g/dL 13.0-16.5 [facility] Work Phone: Blood lymphocytes/100 leukoc yteson 11-16-2021 Lymphocytes/100 WBC (Bld) 14.9 % 19-41 [facility] Work Phone: Blood monocytes/100 leukocyt eson 11-16-2021 Monocytes/100 WBC (Bld) 8.7 % 0-10 [facility] Work Phone: Blood platelet mean volumeon 11-16-2021 Platelet mean volume (Bld) [Entitic vol] 10.8 fL 6.2-12.0 [facility] Work Phone: Determination of erythrocyte mean corpuscular volume (MCV)on 11-16-2021 MCV (RBC) [Entitic vol] 91.9 fL 80-94 [facility] Work Phone: Hematocrit Auto (Bld) [Volum e fraction]on 11-16-2021 Hematocrit (Bld) [Volume fraction] 35.4 % 40-54 [facility] Work Phone: Laboratory - Chemistry and C hemistry - challengeon 11-16-2021 ALP [Catalytic activity/Vol] 71 U/L 45-117 [facility] Work Phone: ALT [Catalytic activity/Vol] 24 U/L 16-61 [facility] Work Phone: [phone] CO2 [Moles/Vol] 25.0 mmol/L 21.0-32.0 [facility] Work Phone: [phone] Globulin (S) [Mass/Vol] 3.6 g/dL 2.2-4.2 [facility] Work Phone: Urea nitrogen/Creatinine [Mass ratio] 27.6 mg/mg 10-20 [facility] Work Phone: [phone] Laboratory - Hematology and Cell countson 11-16-2021 Erythrocyte distribution width (RBC) [Entitic vol] 46.1 fL 35.1-43.9 [facility] Work Phone: [phone] Erythrocyte distribution width (RBC) [Ratio] 13.7 % 11.6-14.6 [facility] Work Phone: [phone] Immature granulocytes/100 WBC (Bld) 0.500 % 0.0-0.9 [facility] Work Phone: [phone] Comment on above: IG% - Immature Granu locytes (promyelocytes, myelocytes and metamyelocytes) > 1% indicates that a LEFT SHIFT is Present. MCH (RBC) [Entitic mass] 31.7 pg 27.0-32.0 [facility] Work Phone: [phone] Nucleated RBC/100 WBC (Bld) [Ratio] 0 % 0-5 [facility] Work Phone: [phone] MCHC Auto (RBC) [Mass/Vol]on 11-16-2021 MCHC (RBC) [Mass/Vol] 34.5 g/dL 32-36 [facility] Work Phone: [phone] Panel Informationon 11-16 Estimated Creatinine Clearance Calc 58.48 ml/min [facility] Work Phone: [phone] Estimated GFR (MDRD) Amer 136 mL/min >60 [facility] Work Phone: [phone] Comment on above: GFR Calc Estimated GFR (MDRD) Non-Af Amer 113 mL/min >60 [facility] Work Phone: [phone] Comment on above: Non- GFR Calc Platelets bldon 11-16-2021 Platelets (Bld) [#/Vol] 275 10*3/uL 150-450 [facility] Work Phone: [phone] Serum or plasma albumin lucio urement (mass/volume)on 11-16-2021 Albumin [Mass/Vol] 2.9 g/dL 3.2-5.0 [facility] Work Phone: Serum or plasma albumin/glob ulin mass ratioon 11-16-2021 Albumin/Globulin [Mass ratio] 0.8 {ratio} 0.9-2.4 [facility] Work Phone: [phone] Serum or plasma calcium lucio urement (mass/volume)on 11-16-2021 Calcium [Mass/Vol] 8.5 mg/dL 8.5-10.1 [facility] Work Phone: [phone] Serum or plasma creatinine m easurement (mass/volume)on 11-16-2021 Creatinine [Mass/Vol] 0.72 mg/dL 0.70-1.30 [facility] Work Phone: Comment on above: The validity of the calculated GFR & GFRAA in patients over 70 years has not been determined. Clinical correlation is essential. Serum or plasma urea nitroge n measurement (mass/volume)on 11-16-2021 Urea nitrogen [Mass/Vol] 20 mg/dL 7-18 [facility] Work Phone: Thin prep Papanicolaou smear with manual screeningon 11-16-2021 Thin prep Papanicolaou smear with manual screening 18 U/L 15-37 [facility] Work Phone: Comment on above: Slight Hemolysis, Re sult may be falsely increased. Thin prep Papanicolaou smear with manual screening 6 5-15 [facility] Work Phone: Basophil percentageon 2021 Basophil percentage 1 % 0-5 [facility] Work Phone: Basophil percentage 2.5 mg/dL 2.5-4.9 [facility] Work Phone: Blood lymphocytes/100 leukoc yteson 11-15-2021 Lymphocytes/100 WBC (Bld) 9 % 19-41 [facility] Work Phone: Blood metamyelocytes/100 marck kocyteson 11-15-2021 Metamyelocytes/100 WBC (Bld) 1 % 0-1 [facility] Work Phone: Blood monocytes/100 leukocyt eson 11-15-2021 Monocytes/100 WBC (Bld) 2 % 0-10 [facility] Work Phone: Blood platelet adequacy dete ction by light microscopyon 11-15-2021 Platelets LM Ql (Bld) ADEQUATE ADEQ [facility] Work Phone: Blood segmented neutrophils/ 100 leukocyteson 11-15-2021 Segmented neutrophils/100 WBC (Bld) 88 % 47-70 [facility] Work Phone: Laboratory - Chemistry and C hemistry - challengeon 11-15-2021 Magnesium [Mass/Vol] 2.3 mg/dL 1.6-2.6 [facility] Work Phone: Comment on above: Slight Hemolysis, Re sult may be falsely increased. RBC morphologyon 11-15-2021 RBC morphology finding Nom (Bld) NORM C+C NORMAL NORM C&C [facility] Work Phone: [phone] Review by pathologiston Pathologist review Shay (Unsp spec) [Interp] [place] ferris [facility] Work Phone: [phone] Pathologist review Shay (Unsp spec) [Interp] Reviewed [facility] Work Phone: [phone] Comment on above: Previous reported re sult: [place] ferris Edited by: RGOOD on 11/19/21:1340Neutrophilic leukocytosis with left shift. Vasyl Savage M.D. 11/19/21 AMENDED REPORT 11/19/21 1340 PATH REV previously reported as: [place] ferris Total cell counton Cells counted Molgen (Bld/Tiss) [#] 100 MANUAL DIFF [facility] Work Phone: [phone] Laboratory - Coagulationon 0 11-14-2021 aPTT Coag (Bld) [Time] 54.9 s 24.1-36.2 [facility] Work Phone: INR in Blood by Coagulation assayon 11-13-2021 INR Coag (Bld) [Relative time] 1.1 {INR} [facility] Work Phone: Laboratory - Coagulationon 0 11-13-2021 PT Coag (PPP) [Time] 13.9 s 11.7-14.9 [facility] Work Phone: No Panel Informationon 11-13 Thyroid Stimulating Hormone (TSH) 1.08 uIU/mL 0.358-3.74 [facility] Work Phone: No Panel Informationon 11-11 Activated Clotting Time 242 sec 74-137 [facility] Work Phone: Direct bilirubinon Bilirubin.direct [Mass/Vol] 0.10 mg/dL 0.00-0.30 [facility] Work Phone: [phone] Basophil percentageon 2021 Basophil percentage < 0.9 mg/dL 0.70-1.30 [facility] Work Phone: No Panel Informationon 10-17 Bedside Estimated GFR (eGFR) > 60.0000 mL/min >60 [facility] Work Phone: Absolute lymphocyte counton 09-04-2021 Lymphocytes Auto (Unsp spec) [#/Vol] 2.88 10*3/uL 0.83-4.51 [facility] Work Phone: Basophil percentageon 2021 Basophils/100 WBC (Bld) 0.7 % 0-1 [facility] Work Phone: Chloride [Moles/Vol] 102 mmol/L 98-107 [facility] Work Phone: Eosinophils/100 WBC (Bld) 4.5 % 0-5 [facility] Work Phone: Glucose [Mass/Vol] 101 mg/dL 74-106 [facility] Work Phone: Comment on above: Fasting Glucose resu lt from 100 to 125 mg/dL suggests IMPAIRED HOMEOSTASIS per A.D.A. criteria. Neutrophils (Bld) [#/Vol] 7.3 10*3/uL 2.0-7.7 [facility] Work Phone: Neutrophils/100 WBC (Bld) 61.6 % 47-70 [facility] Work Phone: Potassium [Moles/Vol] 4.1 mmol/L 3.5-5.1 [facility]: Sodium [Moles/Vol] 134 mmol/L 136-145 [facility] Work Phone: WBC (Bld) [#/Vol] 11.8 10*3/uL 4.4-11.0 [facility] Work Phone: Blood erythrocytes count (nu mber/volume)on 09-04-2021 RBC (Bld) [#/Vol] 4.29 10*6/uL 4.6-6.2 [facility] Work Phone: Blood hemoglobin measurement (mass/volume)on 09-04-2021 Hemoglobin (Bld) [Mass/Vol] 13.4 g/dL 13.0-16.5 [facility] Work Phone: Blood lymphocytes/100 leukoc yteson 09-04-2021 Lymphocytes/100 WBC (Bld) 24.3 % 19-41 [facility] Work Phone: Blood monocytes/100 leukocyt eson 09-04-2021 Monocytes/100 WBC (Bld) 8.5 % 0-10 [facility] Work Phone: Blood platelet mean volumeon 09-04-2021 Platelet mean volume (Bld) [Entitic vol] 10.7 fL 6.2-12.0 [facility] Work Phone: Determination of erythrocyte mean corpuscular volume (MCV)on 09-04-2021 MCV (RBC) [Entitic vol] 91.8 fL 80-94 [facility] Work Phone: Hematocrit Auto (Bld) [Volum e fraction]on 09-04-2021 Hematocrit (Bld) [Volume fraction] 39.4 % 40-54 [facility] Work Phone: INR in Blood by Coagulation assayon 09-04-2021 INR Coag (Bld) [Relative time] 1.0 {INR} [facility] Work Phone: Laboratory - Chemistry and C hemistry - challengeon 09-04-2021 CO2 [Moles/Vol] 28.0 mmol/L 21.0-32.0 [facility] Work Phone: Urea nitrogen/Creatinine [Mass ratio] 14.4 mg/mg 10-20 [facility] Work Phone: Laboratory - Coagulationon 0 09-04-2021 aPTT Coag (Bld) [Time] 32.2 s 24.1-36.2 [facility] Work Phone: PT Coag (PPP) [Time] 13.1 s 11.7-14.9 [facility] Work Phone: Laboratory - Hematology and Cell countson 09-04-2021 Erythrocyte distribution width (RBC) [Entitic vol] 45.1 fL 35.1-43.9 [facility] Work Phone: Erythrocyte distribution width (RBC) [Ratio] 13.5 % 11.6-14.6 [facility] Work Phone: [phone] Immature granulocytes/100 WBC (Bld) 0.400 % 0.0-0.9 [facility] Work Phone: Comment on above: IG% - Immature Granu locytes (promyelocytes, myelocytes and metamyelocytes) > 1% indicates that a LEFT SHIFT is Present. MCH (RBC) [Entitic mass] 31.2 pg 27.0-32.0 [facility] Work Phone: Nucleated RBC/100 WBC (Bld) [Ratio] 0 % 0-5 [facility] Work Phone: [phone] MCHC Auto (RBC) [Mass/Vol]on 09-04-2021 MCHC (RBC) [Mass/Vol] 34.0 g/dL 32-36 [facility] Work Phone: No Panel Informationon 09-04 Estimated GFR (MDRD) Amer 106 mL/min >60 [facility] Work Phone: Comment on above: GFR Calc Estimated GFR (MDRD) Non-Af Amer 88 mL/min >60 [facility] Work Phone: Comment on above: Non- GFR Calc Platelets bldon 09-04-2021 Platelets (Bld) [#/Vol] 215 10*3/uL 150-450 [facility] Work Phone: Serum or plasma calcium lucio urement (mass/volume)on 09-04-2021 Calcium [Mass/Vol] 9.0 mg/dL 8.5-10.1 [facility] Work Phone: Serum or plasma creatinine m easurement (mass/volume)on 09-04-2021 Creatinine [Mass/Vol] 0.90 mg/dL 0.70-1.30 [facility] Work Phone: Comment on above: The validity of the calculated GFR & GFRAA in patients over 70 years has not been determined. Clinical correlation is essential. Serum or plasma urea nitroge n measurement (mass/volume)on 09-04-2021 Urea nitrogen [Mass/Vol] 13 mg/dL 7-18 [facility] Work Phone: Thin prep Papanicolaou smear with manual screeningon 09-04-2021 Thin prep Papanicolaou smear with manual screening 4 5-15 [facility] Work Phone: CNOVon 08-08-2021 CNOV Office Visit (AGMIL) NIKKO BARAJAS ([id number]) 1945 M Date Time Provider Department 08/08/21 11:00 AM ARABELLA HAMILTON During your visit today, we recorded the following information about you: Pulse Respiration Blood pressure Weight 72/minute 18/minute 128/70 79.8 kg Height 1.753 m Arabella Hamilton MD 08/08/2021 11:25 AM Signed Nikko Barajas is a 75 year old male presents for initial evaluation of carotid disease. Pt is a prior pt of [facility]. He is on plavix, asa, and statin. He saw [facility] 01/2021: Patient seen today in follow-up of [...] the patient was referred to Dr Dhruv Richard at [facility] by Dr Fatoumata Koroma for occlusion and stenosis of B carotids and requested he be seen [facility]. Dr Richard deferred mgmt to [facility] as he was already established here and pt did not want to come to [facility]. Pt had a recent US on 07/05/21 [...] INHALATION) Inhale as instructed once daily. - omega-3s/dha/epa/fis h oil/D3 (VITAMIN-D + OMEGA-3 ORAL) Take 3 tablets by mouth once daily. - allopurinol (ZYLOPRIM) 300 mg tablet allopurinol ALLOPURINOL 300 MG TABS One tablet by mouth daily ALLOPURINOL [id number] Shazia Perez RN 06-13-2010 [facility] ([id number]) (more content not included)... Normal [facility] 07-16-2021 [facility] Telephone (JAMEL) KARLIVETTEY ([id number]) 1945 M Date Time Provider Department 07/16/21 LUIS RICHARD During your visit today, we recorded the following information about you: Emilia Wayne Sec 07/16/2021 1:12 PM Signed Patient is referred again to see Dr. Richard by Dr. Fatoumata Pimentel for occlusion and stenosis of bilateral carotid arteries. Dr. Pimentel would like the patient seen as soon as possible. Imaging was sent over electronically. Emilia Wayne House Visitor Karlie Hassan [facility] 07/17/2021 2:53 PM Signed Contacted the patient and provided the [facility] location for the patient to be seen closer. Patient wasn't ok with coming to [facility] [place]. Closing encounter Allergies As of Date: 07/16/2021 Noted Allergy Reaction BEE POLLEN 07/12/2018 1 - Mental Status Change Date Reviewed: 01/24/2021 Reviewed by: Maria Antonia Atwood LPN - Fully Assessed Reason for Visit: Appointment [186] Prescriptions as of 07/17/2021 - tiotropium bromide (SPIRIVA RESPIMAT INHALATION) Inhale as instructed once daily. - omega-3s/dha/epa/fis h oil/D3 (VITAMIN-D + OMEGA-3 ORAL) Take 3 tablets by mouth once daily. - allopurinol (ZYLOPRIM) 300 mg tablet allopurinol ALLOPURINOL 300 MG TABS One tablet by mouth daily ALLOPURINOL [id number] Shazia Perez RN 06-13-2008 [facility] ([id number]) - lisinopril (ZESTRIL, PRINIVIL) 20 mg tablet Take 20 mg by mouth once daily. - atorvastatin (LIPITOR) 40 mg tablet Take 40 mg by mouth once daily. - aspirin, enteric coated (ASPIRIN, ENTERIC COATED) 325 mg EC tablet aspirin ECOTRIN 325 MG TBEC One tablet by mouth daily ASPIRIN [id number] Shazia Perez RN [birth year]2010 [facility] ([id number]) - nitroglycerin sublingual (NITROQUICK) 0.4 mg SL tablet nitroglycerin NITROSTAT 0.4 MG SUBL 1 tablet under the tongue every 5 minutes times 3 as needed for chest pain. NITROGLYCERIN [id number] Tyson Leroy MD [birth year]2010 Yessica Cobian RN [facility] ([id number]) - pantoprazole DR (PROTONIX) 40 mg tablet q 24 HR. - clopidogrel (PLAVIX) 75 mg tablet Take 75 mg by mouth once daily. - metoprolol tartrate, short acting, (LOPRESSOR) 25 mg tablet Take 25 mg by mouth twice daily. - albuterol HFA (PROAIR HFA) 90 mcg/actuation inhaler Inhale 2 Puffs as instructed every 4 hours as needed. Problem List As Of Date: 07/16/2021 (None) Encounter Status:Closed by EMILIA EMANUEL on 07/16/21 Normal [facility] Basophil percentageon 2021 Creatinine [Mass/Vol] 0.9 mg/dL 0.70-1.30 [facility] Work Phone: No Panel Informationon 06-28 Bedside Estimated GFR (eGFR) > 60.0000 mL/min >60 [facility] Work Phone: CTA NECK W IVCONon 1 CTA NECK W IVCON * * *Final Report* * * DATE OF EXAM: Nov 06 2020 11:31AM [facility] 0024 - CTA NECK W IVCON / PROCEDURE REASON: Bruit * * * * Physician Interpretation * * * * EXAMINATION: CTA NECK W IVCON HISTORY: Bruit TECHNIQUE: Spiral high resolution axial images were obtained through the head, neck and superior mediastinum following bolus administration of intravenous contrast for CT angiography. 3D maximum intensity projection images were created, reviewed and archived . MQ: [id number]_4 Contrast: 85 mL Omnipaque [address] Radiation dose: Integrated Dose-Length Product (DLP) for this visit = 794 mGy*cm. CT Dose Reduction Employed: Automated exposure control(AEC) and iterative recon COMPARISON: Head and neck CTA 06/10/2018, outside hospital RESULT: BRAIN: Evaluation of the individual slices of the CTA demonstrates no evidence of an acute stroke. ASPECT Score = 10 Hemorrhage: No evidence of acute intracranial hemorrhage. ECASS hemorrhagic transformation score: Not Applicable Spot Sign Presence: Not Applicable Spot Sign Number: Not Applicable Moderate diffuse inflammatory mucosal changes of the ethmoid air cells. Prior bilateral cataract extractions. NECK: Soft tissues: The soft tissue planes are maintained throughout. No evidence of a soft tissue mass in the neck or superior mediastinum. No significant lymphadenopathy is seen. Spine: Alignment is normal. Mild degenerative changes are present. Lung apices: Paraseptal and centrilobular emphysema. CT ARTERIOGRAM: Extracranial Circulation: Aortic Arch: There is a normal branching pattern from the aortic arch.. There is no significant stenosis in the proximal brachiocephalic vessels. Carotid Stenosis: Right Common: No significant stenosis. Right Internal Carotid Plaque: Minimal calcific atherosclerotic wall plaque. Right Internal Carotid Stenosis (% by NASCET Criteria): 40% Left Common: No significant stenosis. Left Internal Carotid Plaque: Moderate calcific atherosclerotic wall plaque. Left Internal Carotid Stenosis (% by NASCET Criteria): 70% Cervical Vertebral Arteries: Patency: Bilateral Dominance: Right Mild to moderate narrowing of the origin of the left vertebral artery secondary to atherosclerotic plaque, unchanged. Intracranial Circulation: Anterior Circulation: Moderate atherosclerotic calcifications of the intracranial cavernous and paraclinoid ICAs. There is up to moderate narrowing of the left cavernous ICA. Mild narrowing of the right cavernous and bilateral paraclinoid ICAs. The A1 segments are codominant in luminal caliber. Anterior and middle cerebral arterial circulation appear patent without proximal large vessel occlusion, high-grade stenosis or aneurysm. Vertebrobasilar Circulation: The intradural vertebral arteries are patent. Atherosclerotic calcific plaque at the right greater than left proximal V4 segments secondary to no more than mild bilateral luminal narrowing. The basilar artery is patent. The posterior cerebral arterial circulation appears normal in course and caliber. Wire Roller (topogram) images: No additional findings. IMPRESSION: Atherosclerotic calcific plaque at the carotid bifurcations and proximal cervical ICAs with up to 70% left and 40% right proximal ICA narrowing by NASCET criteria, similar to the outside hospital CTA. Intracranial atherosclerotic disease with up to moderate narrowing of the left cavernous ICA. Otherwise no proximal large vessel occlusion or high-grade stenosis. Emphysema. Arterial blood flow was measured to detect acute large vessel occlusion by computer aided detection software: Not Performed. Concordance between software and imaging review: Not Applicable. Title Specialist: SONDRA Transcribe Date/Time: Nov 06 2020 11:47A Dictated by : MARYLU ROB DO This examination was interpreted and the report reviewed and electronically signed by: MARYLU ROB DO on Nov 06 2020 12:13PM EST [id number] CN Normal [facility] Creatinineon 11-06-2020 Creatinine [Mass/Vol] 0.77 mg/dL Normal 0.73-1.22 [facility] eGFR- Amer. >[address] [facility] eGFR-All Other Races >60 Normal [facility] Comment on above: Result Comment: eGFR (Estimated GFR) Units of measure: [...] eGFR may not accurately reflect actual GFR. 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 Left ventricular Ejection fraction 55 % Invalid Interpretation Code [facility] Work Phone: [phone] Clinical Lists Update: Prelo airplane first officer 12-21-2015 Alanine aminotransferase (ALT) 30 U/L Invalid Interpretation Code [facility] Work Phone: [phone] Alkaline phosphatase (ALP) 106 U/L Invalid Interpretation Code [facility] Work Phone: [phone] Aspartate aminotransferase (AST) 24 U/L Invalid Interpretation Code [facility] Work Phone: [phone] Bilirubin (total) 0.5 mg/dL Invalid Interpretation Code [facility] Work Phone: [phone] Cholesterol 89 mg/dL Invalid Interpretation Code [facility] Work Phone: [phone] HDL Cholesterol 31 mg/dL Invalid Interpretation Code [facility] Work Phone: [phone] LDL Cholesterol 45 mg/dL Invalid Interpretation Code [facility] Work Phone: [phone] Thyroid stimulating hormone (TSH) 1.64 u[iU]/mL Invalid Interpretation Code [facility] Work Phone: [phone] Triglyceride 102 mg/dL Invalid Interpretation Code [facility] Work Phone: [phone] Lab Report: Lipid Profileon 09-05-2015 very low density lipoproteins 24 mg/dL Invalid Interpretation Code 5-40 [facility] Work Phone: [phone] Lab Report: Liver Profileon 09-05-2015 Albumin 3.4 g/dL Invalid Interpretation Code 3.4-5.0 [facility] Work Phone: [phone] Bilirubin (direct) 0.16 mg/dL Invalid Interpretation Code 0.00-0.30 [facility] Work Phone: [phone] Globulin 3.3 g/dL Invalid Interpretation Code 2.3-3.5 [facility] Work Phone: [phone] Protein 6.7 g/dL Invalid Interpretation Code 6.4-8.2 [facility] Work Phone: [phone] Office Visiton 03-21-2015 Tobacco use CPHS Former smoker Invalid Interpretation Code [facility] Work Phone: [phone] Replaced Document: [employer] E CG Observationson 03-21-2015 electrocardiogram interpretation Sinus Bradycardia WITHIN NORMAL LIMITS Invalid Interpretation Code [facility] Work Phone: [phone] GE use only - for Link[employer] import when terms are not otherwise specified 439 ms Invalid Interpretation Code [facility] Work Phone: [phone] P wave axis, electrocardiogram 41 deg Invalid Interpretation Code [facility] Work Phone: [phone] NM interval, electrocardiogram 128 ms Invalid Interpretation Code [facility] Work Phone: [phone] Pulse (Heart Rate) 58 /min Invalid Interpretation Code [facility] Work Phone: [phone] QRS axis, electrocardiogram 2 deg Invalid Interpretation Code [facility] Work Phone: [phone] QRS duration, electrocardiogram 94 ms Invalid Interpretation Code [facility] Work Phone: [phone] QT interval, electrocardiogram new path ms Invalid Interpretation Code [facility] Work Phone: [phone] T wave axis, electrocardiogram 11 deg Invalid Interpretation Code [facility] Phone: [phone] Clinical Lists Update: Prelo airplane first officer 12-21-2014 Anion gap 14 mmol/L Invalid Interpretation Code [facility] Work Phone: [phone] Calcium 8.9 mg/dL Invalid Interpretation Code [facility] Work Phone: [phone] Chloride 105 mmol/L Invalid Interpretation Code [facility] Work Phone: [phone] CO2 25 mmol/L Invalid Interpretation Code [facility] Work Phone: [phone] Creatinine 0.5 mg/dL Invalid Interpretation Code [facility] [employer] Phone: [phone] Erythrocytes (RBC) 4.39 10*6/uL [facility] [address] [address] [facility] Work Phone: [phone] Glucose 94 mg/dL Invalid Interpretation Code [facility] Work Phone: [phone] HbA1c 5.6 % Invalid Interpretation Code [facility] Work Phone: [phone] Hematocrit (HCT) 39.8 % Low [facility] Work Phone: [phone] Hemoglobin (HGB) 13.8 g/dL Invalid Interpretation Code [facility] Work Phone: [phone] Magnesium 2.3 mg/dL Invalid Interpretation Code [facility] Work Phone: [phone] MCH 31.4 pg High [facility] Work Phone: [phone] MCHC 34.7 g/dL Invalid Interpretation Code [facility] Work Phone: [phone] MCV 90.7 fL Invalid Interpretation Code [facility] Work Phone: [phone] Platelets 216 10*3/mm3 Invalid Interpretation Code [facility] Work Phone: [phone] Potassium 4.2 mmol/L Invalid Interpretation Code [facility] Work Phone: [phone] RDW-CA 13.9 % Invalid Interpretation Code [facility] Work Phone: [phone] Sodium 140 mmol/L Invalid Interpretation Code [facility] Work Phone: [phone] Thyroxine (T4) free 1.17 ng/dL Invalid Interpretation Code [facility] Work Phone: [phone] Urea nitrogen 12 mg/dL Invalid Interpretation Code [facility] Phone: [phone] WBC (Leukocytes) 9.03 10*3/uL Invalid Interpretation Code [facility] Work Phone: [phone] Lab Report: Basic Metabolic Profile (BMP)on 09-06-2014 BUN/Creatinine Ratio 13.3 RATIO Invalid Interpretation Code 10-20 [facility] Phone: [phone] eGFR (non-black) 108 mL/min/{1.73_m2} Invalid Interpretation Code >60 [facility] Phone: [phone] eGFR (non-black) 89 mL/min/{1.73_m2} Invalid Interpretation Code >60 [facility] Phone: [phone] Office Visiton 03-22-2014 cardiac risk group C Invalid Interpretation Code [facility] Phone: [phone] General cardiovascular disease 10Y risk [#] [place]D'Agostmariano N/A Invalid Interpretation Code [facility] Phone: [phone] External Other: Preferred Me thod of Contacton 09-16-2013 Patient's prefered method of contact secmsg Invalid Interpretation Code [facility] Phone: [phone] Replaced Document: Midmark E CG Observationson 09-09-2012 Pulse (Heart Rate) 448 ms Invalid Interpretation Code [facility] Work Phone: [phone] Clinical Lists Update: Prelo airplane first officer 03-12-2012 Left ventricular Ejection fraction 55 % Invalid Interpretation Code [facility] Work Phone: [phone] Vital Signs Date Time Vital Sign Value Performing Clinician Facility 01-04-2025 10:51-0400 Body height 175.3 cm Ronnie Troy MD Work Phone: [facility] 01-04-2025 10:51-0400 Body mass index (BMI) [Ratio] 23.04 kg/m2 Ronnie Troy MD Work Phone: [facility] 01-04-2025 10:51-0400 Body weight 70.76 kg Ronnie Troy MD Work Phone: [facility] 01-04-2025 10:51-0400 Diastolic blood pressure 52 mm[Hg] Ronnie Troy MD Work Phone: [facility] 01-04-2025 10:51-0400 Heart rate 90 /min Ronnie Troy MD Work Phone: [facility] 01-04-2025 10:51-0400 SaO2% (BldA) [Mass fraction] 98 % Ronnie Troy MD Work Phone: [facility] 01-04-2025 10:51-0400 Systolic blood pressure 96 mm[Hg] Ronnie Troy MD Work Phone: [facility] 12-19-2024 12:45-0400 Heart rate 64 /min Ulises Perdomo MD Work Phone: [facility] 12-19-2024 12:45-0400 Respiratory rate 16 /min Ulises Perdomo MD Work Phone: [facility] 12-19-2024 12:15-0400 Diastolic blood pressure 46 mm[Hg] Ulises Perdomo MD Work Phone: [facility] 12-19-2024 12:15-0400 Systolic blood pressure 108 mm[Hg] Ulises Perdomo MD Work Phone: [facility] 12-19-2024 11:00-0400 SaO2% (BldA) [Mass fraction] 95 % Ulises Perdomo MD Work Phone: [facility] 12-19-2024 08:59-0400 Body temperature 97 [degF] Ulises Perdomo MD Work Phone: [facility] 11-24-2024 10:40-0400 Body temperature 98.2 [degF] Dr. Santosh Velazquez DO Work Phone: [facility] 11-24-2024 10:40-0400 Body weight 74.[address] Santosh Velazquez DO Work Phone: [facility] 11-24-2024 10:40-0400 Diastolic blood pressure 63 mm[Hg] Dr. Santosh Velazquez DO Work Phone: [facility] 11-24-2024 10:40-0400 Heart rate 71 /min Dr. Santosh Velazquez DO Work Phone: [facility] 11-24-2024 10:40-0400 Respiratory rate 16 /min Dr. Santosh Velazquez DO Work Phone: [facility] 11-24-2024 10:40-0400 SaO2% (BldA) [Mass fraction] 98 % Dr. Santosh Velazquez DO Work Phone: [facility] 11-24-2024 10:40-0400 Systolic blood pressure 109 mm[Hg] Dr. Santosh Velazquez DO Work Phone: [facility] 11-15-2024 10:34-0400 Body height 175.3 cm Ronnie Troy MD Work Phone: [facility] 11-15-2024 10:34-0400 Body mass index (BMI) [Ratio] 24.28 kg/m2 Ronnie Troy MD Work Phone: [facility] 11-15-2024 10:34-0400 Body weight 74.57 kg Ronnie Troy MD Work Phone: [facility] 11-15-2024 10:34-0400 Diastolic blood pressure 66 mm[Hg] Ronnie Troy MD Work Phone: [facility] 11-15-2024 10:34-0400 Heart rate 82 /min Ronnie Troy MD Work Phone: [facility] 11-15-2024 10:34-0400 SaO2% (BldA) [Mass fraction] 96 % Ronnie Troy MD Work Phone: [facility] 11-15-2024 10:34-0400 Systolic blood pressure 124 mm[Hg] Ronnie Troy MD Work Phone: [facility] 11-10-2024 11:09-0400 Body height 175.[address] Santosh Velazquez DO Work Phone: [facility] 11-10-2024 11:09-0400 Body mass index (BMI) [Ratio] 24.2 kg/m2 Dr. Santosh Velazquez DO Work Phone: [facility] 11-10-2024 11:09-0400 Body weight 74.[address] Santosh Velazquez DO Work Phone: [facility] 11-10-2024 11:09-0400 Diastolic blood pressure 72 mm[Hg] Dr. Santosh Velazquez DO Work Phone: [facility] 11-10-2024 11:09-0400 Heart rate 76 /min Dr. Santosh Velazquez DO Work Phone: [facility] 11-10-2024 11:09-0400 Respiratory rate 16 /min Dr. Santosh Velazquez DO Work Phone: [facility] 11-10-2024 11:09-0400 Systolic blood pressure 129 mm[Hg] Dr. Santosh Velazquez DO Work Phone: [facility] 10-17-2024 10:32-0400 Body height 175.[address] Santosh Velazquez DO Work Phone: [facility] 10-17-2024 10:32-0400 Body mass index (BMI) [Ratio] 24 kg/m2 Dr. Santosh Velazquez DO Work Phone: [facility] 10-17-2024 10:32-0400 Body temperature 96.9 [degF] Dr. Santosh Velazquez DO Work Phone: [facility] 10-17-2024 10:32-0400 Body weight 73.[address] Santosh Velazquez DO Work Phone: [facility] 10-17-2024 10:32-0400 Diastolic blood pressure 70 mm[Hg] Dr. Santosh Velazquez DO Work Phone: [facility] 10-17-2024 10:32-0400 Heart rate 60 /min Dr. Santosh Velazquez DO Work Phone: [facility] 10-17-2024 10:32-0400 Respiratory rate 16 /min Dr. Santosh Velazquez DO Work Phone: [facility] 10-17-2024 10:32-0400 SaO2% (BldA) [Mass fraction] 98 % Dr. Santosh Velazquez DO Work Phone: [facility] 10-17-2024 10:32-0400 Systolic blood pressure 136 mm[Hg] Dr. Santosh Velazquez DO Work Phone: [facility] 08-31-2024 10:03-0400 Body height 175.[address] Santosh Velazquez DO Work Phone: [facility] 08-31-2024 10:03-0400 Body mass index (BMI) [Ratio] 23.8 kg/m2 Dr. Santosh Velazquez DO Work Phone: [facility] 08-31-2024 10:03-0400 Body temperature 96.5 [degF] Dr. Santosh Velazquez DO Work Phone: [facility] 08-31-2024 10:03-0400 Body weight 73.[address] Santosh Velazquez DO Work Phone: [facility] 08-31-2024 10:03-0400 Diastolic blood pressure 60 mm[Hg] Dr. Santosh Velazquez DO Work Phone: [facility] 08-31-2024 10:03-0400 Heart rate 43 /min Dr. Santosh Velazquez DO Work Phone: [facility] 08-31-2024 10:03-0400 Respiratory rate 16 /min Dr. Santosh Velazquez DO Work Phone: [facility] 08-31-2024 10:03-0400 SaO2% (BldA) [Mass fraction] 93 % Dr. Santosh Velazquez DO Work Phone: [facility] 08-31-2024 10:03-0400 Systolic blood pressure 118 mm[Hg] Dr. Santosh Velazquez DO Work Phone: [facility] 08-16-2024 14:10-0400 Body height 175.3 cm Ronnie Troy MD Work Phone: [facility] 08-16-2024 14:10-0400 Body mass index (BMI) [Ratio] 23.18 kg/m2 Ronnie Troy MD Work Phone: [facility] 08-16-2024 14:10-0400 Body weight 71.22 kg Ronnie Troy MD Work Phone: [facility] 08-16-2024 14:10-0400 Diastolic blood pressure 60 mm[Hg] Ronnie Troy MD Work Phone: [facility] 08-16-2024 14:10-0400 Heart rate 83 /min Ronnie Troy MD Work Phone: [facility] 08-16-2024 14:10-0400 SaO2% (BldA) [Mass fraction] 99 % Ronnie Troy MD Work Phone: [facility] 08-16-2024 14:10-0400 Systolic blood pressure 122 mm[Hg] Ronnie Troy MD Work Phone: [facility] 08-16-2024 09:54-0400 Body height 175.[address] Santosh Velazquez DO Work Phone: [facility] 08-16-2024 09:54-0400 Body mass index (BMI) [Ratio] 23.2 kg/m2 Dr. Santosh Velazquez DO Work Phone: [facility] 08-16-2024 09:54-0400 Body temperature 97.9 [degF] Dr. Santosh Velazquez DO Work Phone: [facility] 08-16-2024 09:54-0400 Body weight 71.[address] Santosh Velazquez DO Work Phone: [facility] 08-16-2024 09:54-0400 Diastolic blood pressure 69 mm[Hg] Dr. Santosh Velazquez DO Work Phone: [facility] 08-16-2024 09:54-0400 Heart rate 85 /min Dr. Santosh Velazquez DO Work Phone: [facility] 08-16-2024 09:54-0400 Respiratory rate 16 /min Dr. Santosh Velazquez DO Work Phone: [facility] 08-16-2024 09:54-0400 SaO2% (BldA) [Mass fraction] 98 % Dr. Santosh Velazquez DO Work Phone: [facility] 08-16-2024 09:54-0400 Systolic blood pressure 129 mm[Hg] Dr. Santosh Velazquez DO Work Phone: [facility] 08-14-2024 00:16-0400 Body weight 72.[address] Santosh Velazquez DO Work Phone: [facility] 08-12-2024 09:40-0400 Body height 175.[address] Santosh Velazquez DO Work Phone: [facility] 08-12-2024 09:40-0400 Body weight 72.[address] Santosh Velazquez DO Work Phone: [facility] 08-10-2024 13:52-0400 Body height 175.[address] Santosh Velazquez DO Work Phone: [facility] 08-10-2024 13:52-0400 Body mass index (BMI) [Ratio] 23.3 kg/m2 Dr. Santosh Velazquez DO Work Phone: [facility] 08-10-2024 13:52-0400 Body weight 71.[address] Santosh Velazquez DO Work Phone: [facility] 08-10-2024 13:52-0400 Diastolic blood pressure 60 mm[Hg] Dr. Santosh Velazquez DO Work Phone: [facility] 08-10-2024 13:52-0400 Heart rate 90 /min Dr. Santosh Velazquez DO Work Phone: [facility] 08-10-2024 13:52-0400 Respiratory rate 16 /min Dr. Santosh Velazquez DO Work Phone: [facility] 08-10-2024 13:52-0400 Systolic blood pressure 99 mm[Hg] Dr. Santosh Velazquez DO Work Phone: [facility] 07-14-2024 10:46-0400 Body weight 71.[address] Santosh Velazquez DO Work Phone: [facility] 07-05-2024 11:27-0400 Body height 175.[address] Santosh Velazquez DO Work Phone: [facility] 07-05-2024 11:27-0400 Body weight 71.[address] Santosh Velazquez DO Work Phone: [facility] 07-04-2024 14:33-0400 Body mass index (BMI) [Ratio] 23.1 kg/m2 Dr. Santosh Velazquez DO Work Phone: [facility] 06-30-2024 08:54-0400 Body mass index (BMI) [Ratio] 23.1 kg/m2 Dr. Santosh Velazquez DO Work Phone: [facility] 06-30-2024 08:54-0400 Body weight 71.[address] Santosh Velazquez DO Work Phone: [facility] 06-30-2024 08:54-0400 Diastolic blood pressure 68 mm[Hg] Dr. Santosh Velazquez DO Work Phone: [facility] 06-30-2024 08:54-0400 Heart rate 84 /min Dr. Santosh Velazquez DO Work Phone: [facility] 06-30-2024 08:54-0400 Respiratory rate 16 /min Dr. Santosh Velazquez DO Work Phone: [facility] 06-30-2024 08:54-0400 Systolic blood pressure 114 mm[Hg] Dr. Santosh Velazquez DO Work Phone: [facility] 06-15-2024 09:10-0400 Body weight 74.[address] Santosh Velazquez DO Work Phone: [facility] 05-19-2024 10:35-0500 Body mass index (BMI) [Ratio] 23.8 kg/m2 Dr. Santosh Velazquez DO Work Phone: [facility] 05-19-2024 10:08-0500 Diastolic blood pressure 50 mm[Hg] Dr. Santosh Velazquez DO Work Phone: [facility] 05-19-2024 10:08-0500 Heart rate 84 /min Dr. Santosh Velazquez DO Work Phone: [facility] 05-19-2024 10:08-0500 SaO2% (BldA) [Mass fraction] 95 % Dr. Santosh Velazquez DO Work Phone: [facility] 05-19-2024 10:08-0500 Systolic blood pressure 110 mm[Hg] Dr. Santosh Velazquez DO Work Phone: [facility] 05-19-2024 10:01-0500 Body height 175.[address] Santosh Velazquez DO Work Phone: [facility] 05-19-2024 10:01-0500 Body weight 73.[address] Santosh Velazquez DO Work Phone: [facility] 05-03-2024 09:41-0500 Body mass index (BMI) [Ratio] 23.9 kg/m2 Dr. Santosh Velazquez DO Work Phone: [facility] 05-03-2024 09:41-0500 Body temperature 96 [degF] Dr. Santosh Velazquez DO Work Phone: [facility] 05-03-2024 09:41-0500 Body weight 73.[address] Santosh Velazquez DO Work Phone: [facility] 05-03-2024 09:41-0500 Diastolic blood pressure 58 mm[Hg] Dr. Santosh Velazquez DO Work Phone: [facility] 05-03-2024 09:41-0500 Heart rate 84 /min Dr. Santosh Velazquez DO Work Phone: [facility] 05-03-2024 09:41-0500 Respiratory rate 16 /min Dr. Santosh Velazquez DO Work Phone: [facility] 05-03-2024 09:41-0500 SaO2% (BldA) [Mass fraction] 97 % Dr. Santosh Velazquez DO Work Phone: [facility] 05-03-2024 09:41-0500 Systolic blood pressure 108 mm[Hg] Dr. Santosh Velazquez DO Work Phone: [facility] 04-28-2024 10:49-0500 Body mass index (BMI) [Ratio] 23.8 kg/m2 Dr. Santosh Velazquez DO Work Phone: [facility] 04-28-2024 10:49-0500 Body weight 73.[address] Santosh Velazquez DO Work Phone: [facility] 04-28-2024 10:49-0500 Diastolic blood pressure 73 mm[Hg] Dr. Santosh Velazquez DO Work Phone: [facility] 04-28-2024 10:49-0500 Heart rate 86 /min Dr. Santosh Velazquez DO Work Phone: [facility] 04-28-2024 10:49-0500 Respiratory rate 18 /min Dr. Santosh Velazquez DO Work Phone: [facility] 04-28-2024 10:49-0500 SaO2% (BldA) [Mass fraction] 97 % Dr. Santosh Velazquez DO Work Phone: [facility] 04-28-2024 10:49-0500 Systolic blood pressure 110 mm[Hg] Dr. Santosh Velazquez DO Work Phone: [facility] 04-19-2024 09:29-0500 Body mass index (BMI) [Ratio] 24.2 kg/m2 Dr. Santosh Velazquez DO Work Phone: [facility] 04-19-2024 09:29-0500 Body temperature 97.5 [degF] Dr. Santosh Velazquez DO Work Phone: [facility] 04-19-2024 09:29-0500 Body weight 74.[address] Santosh Velazquez DO Work Phone: [facility] 04-19-2024 09:29-0500 Diastolic blood pressure 79 mm[Hg] Dr. Santosh Velazquez DO Work Phone: [facility] 04-19-2024 09:29-0500 Heart rate 106 /min Dr. Santosh Velazquez DO Work Phone: [facility] 04-19-2024 09:29-0500 Respiratory rate 18 /min Dr. Santosh Velazquez DO Work Phone: [facility] 04-19-2024 09:29-0500 SaO2% (BldA) [Mass fraction] 97 % Dr. Santosh Velazquez DO Work Phone: [facility] 04-19-2024 09:29-0500 Systolic blood pressure 115 mm[Hg] Dr. Santosh Velazquez DO Work Phone: [facility] 04-13-2024 14:21-0500 Body temperature 97.8 [degF] Dr. Santosh Velazquez DO Work Phone: [facility] 04-13-2024 14:21-0500 Diastolic blood pressure 64 mm[Hg] Dr. Santosh Velazquez DO Work Phone: [facility] 04-13-2024 14:21-0500 Heart rate 94 /min Dr. Santosh Velazquez DO Work Phone: [facility] 04-13-2024 14:21-0500 Respiratory rate 15 /min Dr. Santosh Velazquez DO Work Phone: [facility] 04-13-2024 14:21-0500 SaO2% (BldA) [Mass fraction] 97 % Dr. Santosh Velazquez DO Work Phone: [facility] 04-13-2024 14:21-0500 Systolic blood pressure 125 mm[Hg] Dr. Santosh Velazquez DO Work Phone: [facility] 04-13-2024 04:22-0500 Body mass index (BMI) [Ratio] 24.3 kg/m2 Dr. Santosh Velazquez DO Work Phone: [facility] 04-13-2024 04:22-0500 Body weight 74.[address] Santosh Velazquez DO Work Phone: [facility] 04-12-2024 11:28-0500 Inhaled oxygen flow rate 1 L/min Dr. Santosh Velazquez DO Work Phone: [facility] 03-10-2024 11:18-0500 Body temperature 98.2 [degF] Dr. Santosh Velazquez DO Work Phone: [facility] 03-10-2024 11:18-0500 Body weight 76.[address] Santosh Velazquez DO Work Phone: [facility] 03-10-2024 11:18-0500 Diastolic blood pressure 71 mm[Hg] Dr. Santosh Velazquez DO Work Phone: [facility] 03-10-2024 11:18-0500 Heart rate 124 /min Dr. Santosh Velazquez DO Work Phone: [facility] 03-10-2024 11:18-0500 Respiratory rate 16 /min Dr. Santosh Velazquez DO Work Phone: [facility] 03-10-2024 11:18-0500 SaO2% (BldA) [Mass fraction] 98 % Dr. Santosh Velazquez DO Work Phone: [facility] 03-10-2024 11:18-0500 Systolic blood pressure 117 mm[Hg] Dr. Santosh Velazquez DO Work Phone: [facility] 02-18-2024 09:54-0500 Body mass index (BMI) [Ratio] 24.7 kg/m2 Dr. Santosh Velazquez DO Work Phone: [facility] 02-18-2024 09:54-0500 Body temperature 97.2 [degF] Dr. Santosh Velazquez DO Work Phone: [facility] 02-18-2024 09:54-0500 Body weight 75.[address] Santosh Velazquez DO Work Phone: [facility] 02-18-2024 09:54-0500 Diastolic blood pressure 77 mm[Hg] Dr. Santosh Velazquez DO Work Phone: [facility] 02-18-2024 09:54-0500 Heart rate 117 /min Dr. Santosh Velazquez DO Work Phone: [facility] 02-18-2024 09:54-0500 Respiratory rate 16 /min Dr. Santosh Velazquez DO Work Phone: [facility] 02-18-2024 09:54-0500 SaO2% (BldA) [Mass fraction] 98 % Dr. Santosh Velazquez DO Work Phone: [facility] 02-18-2024 09:54-0500 Systolic blood pressure 133 mm[Hg] Dr. Santosh Velazquez DO Work Phone: [facility] 07-15-2023 14:18-0400 Body height 175.[address] Santosh Velazquez Work Phone: [facility] 07-15-2023 14:18-0400 Body mass index (BMI) [Ratio] 26 kg/m2 Dr. Santosh Velazquez Work Phone: [facility] 07-15-2023 14:18-0400 Body temperature 97.7 [degF] Dr. Santosh Velazquez Work Phone: [facility] 07-15-2023 14:18-0400 Body weight 79.[address] Santosh Velazquez Work Phone: [facility] 07-15-2023 14:18-0400 Diastolic blood pressure 67 mm[Hg] Dr. Santosh Velazquez Work Phone: [facility] 07-15-2023 14:18-0400 Heart rate 72 /min Dr. Santosh Velazquez Work Phone: [facility] 07-15-2023 14:18-0400 Respiratory rate 16 /min Dr. Santosh Velazquez Work Phone: [facility] 07-15-2023 14:18-0400 SaO2% (BldA) [Mass fraction] 93 % Dr. Santosh Velazquez Work Phone: [facility] 07-15-2023 14:18-0400 Systolic blood pressure 131 mm[Hg] Dr. Santosh Velazquez Work Phone: [facility] 07-08-2023 14:14-0400 Body mass index (BMI) [Ratio] 26.3 kg/m2 Dr. Santosh Velazquez Work Phone: [facility] 07-08-2023 14:14-0400 Body temperature 97.2 [degF] Dr. Santosh Velazquez Work Phone: [facility] 07-08-2023 14:14-0400 Body weight 80.[address] Santosh Velazquez Work Phone: [facility] 07-08-2023 14:14-0400 Diastolic blood pressure 71 mm[Hg] Dr. Santosh Velazquez Work Phone: [facility] 07-08-2023 14:14-0400 Heart rate 66 /min Dr. Santosh Velazquez Work Phone: [facility] 07-08-2023 14:14-0400 Respiratory rate 18 /min Dr. Santosh Velazquez Work Phone: [facility] 07-08-2023 14:14-0400 SaO2% (BldA) [Mass fraction] 95 % Dr. Santosh Velazquez Work Phone: [facility] 07-08-2023 14:14-0400 Systolic blood pressure 127 mm[Hg] Dr. Santosh Velazquez Work Phone: [facility] 07-01-2023 13:58-0400 Body mass index (BMI) [Ratio] 26.2 kg/m2 Dr. Santosh Velazquez Work Phone: [facility] 07-01-2023 13:58-0400 Body temperature 98.3 [degF] Dr. Santosh Velazquez Work Phone: [facility] 07-01-2023 13:58-0400 Body weight 80.[address] Santosh Velazquez Work Phone: [facility] 07-01-2023 13:58-0400 Diastolic blood pressure 64 mm[Hg] Dr. Santosh Velazquez Work Phone: [facility] 07-01-2023 13:58-0400 Heart rate 69 /min Dr. Santosh Velazquez Work Phone: [facility] 07-01-2023 13:58-0400 Respiratory rate 16 /min Dr. Santosh Velazquez Work Phone: [facility] 07-01-2023 13:58-0400 SaO2% (BldA) [Mass fraction] 95 % Dr. Santosh Velazquez Work Phone: [facility] 07-01-2023 13:58-0400 Systolic blood pressure 159 mm[Hg] Dr. Santosh Velazquez Work Phone: [facility] 06-24-2023 14:06-0400 Body mass index (BMI) [Ratio] 26.7 kg/m2 Dr. Santosh Velazquez Work Phone: [facility] 06-24-2023 14:06-0400 Body temperature 97.4 [degF] Dr. Santosh Velazquez Work Phone: [facility] 06-24-2023 14:06-0400 Body weight 82.[address] Santosh Velazquez Work Phone: [facility] 06-24-2023 14:06-0400 Diastolic blood pressure 61 mm[Hg] Dr. Santosh Velazquez Work Phone: [facility] 06-24-2023 14:06-0400 Heart rate 63 /min Dr. Santosh Velazquez Work Phone: [facility] 06-24-2023 14:06-0400 Respiratory rate 16 /min Dr. Santosh Velazquez Work Phone: [facility] 06-24-2023 14:06-0400 SaO2% (BldA) [Mass fraction] 94 % Dr. Santosh Velazquez Work Phone: [facility] 06-24-2023 14:06-0400 Systolic blood pressure 138 mm[Hg] Dr. Santosh Velazquez Work Phone: [facility] 06-16-2023 14:03-0400 Body mass index (BMI) [Ratio] 26.8 kg/m2 Dr. Santosh Velazquez Work Phone: [facility] 06-16-2023 14:03-0400 Body temperature 98.5 [degF] Dr. Santosh Velazquez Work Phone: [facility] 06-16-2023 14:03-0400 Body weight 82.[address] Santosh Velazquez Work Phone: [facility] 06-16-2023 14:03-0400 Diastolic blood pressure 71 mm[Hg] Dr. Santosh Velazquez Work Phone: [facility] 06-16-2023 14:03-0400 Heart rate 58 /min Dr. Santosh Velazquez Work Phone: [facility] 06-16-2023 14:03-0400 Respiratory rate 16 /min Dr. Santosh Velazquez Work Phone: [facility] 06-16-2023 14:03-0400 SaO2% (BldA) [Mass fraction] 95 % Dr. Santosh Velazquez Work Phone: [facility] 06-16-2023 14:03-0400 Systolic blood pressure 153 mm[Hg] Dr. Santosh Velazquez Work Phone: [facility] 06-10-2023 14:15-0400 Body mass index (BMI) [Ratio] 27.1 kg/m2 Dr. Santosh Velazquez Work Phone: [facility] 06-10-2023 14:15-0400 Body temperature 98.2 [degF] Dr. Santosh Velazquez Work Phone: [facility] 06-10-2023 14:15-0400 Body weight 83.[address] Santosh Velazquez Work Phone: [facility] 06-10-2023 14:15-0400 Diastolic blood pressure 77 mm[Hg] Dr. Santosh Velazquez Work Phone: [facility] 06-10-2023 14:15-0400 Heart rate 64 /min Dr. Santosh Velazquez Work Phone: [facility] 06-10-2023 14:15-0400 Respiratory rate 18 /min Dr. Santosh Velazquez Work Phone: [facility] 06-10-2023 14:15-0400 SaO2% (BldA) [Mass fraction] 93 % Dr. Santosh Velazquez Work Phone: [facility] 06-10-2023 14:15-0400 Systolic blood pressure 138 mm[Hg] Dr. Santosh Velazquez Work Phone: [facility] 05-20-2023 11:22-0500 Body temperature 99.1 [degF] Dr. Santosh Velazquez Work Phone: [facility] 05-20-2023 11:22-0500 Diastolic blood pressure 56 mm[Hg] Dr. Santosh Velazquez Work Phone: [facility] 05-20-2023 11:22-0500 Heart rate 63 /min Dr. Santosh Velazquez Work Phone: [facility] 05-20-2023 11:22-0500 Respiratory rate 16 /min Dr. Santosh Velazquez Work Phone: [facility] 05-20-2023 11:22-0500 SaO2% (BldA) [Mass fraction] 95 % Dr. Santosh Velazquez Work Phone: [facility] 05-20-2023 11:22-0500 Systolic blood pressure 133 mm[Hg] Dr. Santosh Velazquez Work Phone: [facility] 05-20-2023 11:00-0500 Inhaled oxygen flow rate 2 L/min Dr. Santosh Velazquez Work Phone: [facility] 05-20-2023 08:16-0500 Body height 175.[address] Santosh Velazquez Work Phone: [facility] 05-20-2023 08:16-0500 Body mass index (BMI) [Ratio] 27.4 kg/m2 Dr. Santosh Velazquez Work Phone: [facility] 05-20-2023 08:16-0500 Body weight 84.[address] Santosh Velazquez Work Phone: [facility] 04-30-2023 15:32-0500 Body temperature 98.2 [degF] Dr. Santosh Velazquez Work Phone: [facility] 04-30-2023 15:32-0500 Body weight 83.[address] Santosh Velazquez Work Phone: [facility] 04-30-2023 15:32-0500 Diastolic blood pressure 55 mm[Hg] Dr. Santosh Velazquez Work Phone: [facility] 04-30-2023 15:32-0500 Heart rate 72 /min Dr. Santosh Velazquez Work Phone: [facility] 04-30-2023 15:32-0500 Respiratory rate 16 /min Dr. Santosh Velazquez Work Phone: [facility] 04-30-2023 15:32-0500 SaO2% (BldA) [Mass fraction] 95 % Dr. Santosh Velazquez Work Phone: [facility] 04-30-2023 15:32-0500 Systolic blood pressure 118 mm[Hg] Dr. Santosh Velazquez Work Phone: [facility] 04-14-2023 13:35-0500 Body height 175.[address] Santosh Velazquez Work Phone: [facility] 04-14-2023 13:35-0500 Body mass index (BMI) [Ratio] 27.8 kg/m2 Dr. Santosh Velazquez Work Phone: [facility] 04-14-2023 13:35-0500 Body temperature 99.1 [degF] Dr. Santosh Velazquez Work Phone: [facility] 04-14-2023 13:35-0500 Body weight 85.[address] Santosh Velazquez Work Phone: [facility] 04-14-2023 13:35-0500 Diastolic blood pressure 62 mm[Hg] Dr. Santosh Velazquez Work Phone: [facility] 04-14-2023 13:35-0500 Heart rate 65 /min Dr. Santosh Velazquez Work Phone: [facility] 04-14-2023 13:35-0500 Respiratory rate 18 /min Dr. Santosh Velazquez Work Phone: [facility] 04-14-2023 13:35-0500 SaO2% (BldA) [Mass fraction] 96 % Dr. Santosh Velazquez Work Phone: [facility] 04-14-2023 13:35-0500 Systolic blood pressure 147 mm[Hg] Dr. Santosh Velazquez Work Phone: [facility] 03-24-2023 13:59-0500 Body height 175.[address] Santosh Velazquez Work Phone: [facility] 03-24-2023 13:59-0500 Body mass index (BMI) [Ratio] 27.6 kg/m2 Dr. Santosh Velazquez Work Phone: [facility] 03-24-2023 13:59-0500 Body weight 84.[address] Santosh Velazquez Work Phone: [facility] 03-24-2023 13:59-0500 Diastolic blood pressure 62 mm[Hg] Dr. Santosh Velazquez Work Phone: [facility] 03-24-2023 13:59-0500 Heart rate 60 /min Dr. Santosh Velazquez Work Phone: [facility] 03-24-2023 13:59-0500 Respiratory rate 16 /min Dr. Santosh Velazquez Work Phone: [facility] 03-24-2023 13:59-0500 Systolic blood pressure 146 mm[Hg] Dr. Santosh Velazquez Work Phone: [facility] [facility] 03-11-2023 10:45-0500 Body temperature 98 [degF] Dr. Santosh Vealzquez Work Phone: [facility] 03-11-2023 10:45-0500 Body weight 84.[address] Santosh Velazquez Work Phone: [facility] 03-11-2023 10:45-0500 Diastolic blood pressure 58 mm[Hg] Dr. Santosh Velazquez Work Phone: [facility] 03-11-2023 10:45-0500 Heart rate 57 /min Dr. Santosh Velazquez Work Phone: [facility] 03-11-2023 10:45-0500 Respiratory rate 16 /min Dr. Santosh Velazquez Work Phone: [facility] 03-11-2023 10:45-0500 SaO2% (BldA) [Mass fraction] 96 % Dr. Santosh Velazquez Work Phone: [facility] 03-11-2023 10:45-0500 Systolic blood pressure 143 mm[Hg] Dr. Santosh Velazquez Work Phone: [facility] 09-10-2022 10:00-0400 Body temperature 98.6 [degF] Dr. Santosh Velazquez Work Phone: [facility] 09-10-2022 10:00-0400 Body weight 84.[address] Santosh Velazquez Work Phone: [facility] 09-10-2022 10:00-0400 Diastolic blood pressure 65 mm[Hg] Dr. Santosh Velazquez Work Phone: [facility] 09-10-2022 10:00-0400 Heart rate 58 /min Dr. Santosh Velazquez Work Phone: [facility] 09-10-2022 10:00-0400 Respiratory rate 18 /min Dr. Santosh Velazquez Work Phone: [facility] 09-10-2022 10:00-0400 SaO2% (BldA) [Mass fraction] 96 % Dr. Santosh Velazquez Work Phone: [facility] 09-10-2022 10:00-0400 Systolic blood pressure 156 mm[Hg] Dr. Santosh Velazquez Work Phone: [facility] 09-09-2022 13:13-0400 Body height 175.[address] Santosh Velazquez Work Phone: [facility] 09-09-2022 13:13-0400 Body mass index (BMI) [Ratio] 27.7 kg/m2 Dr. Santosh Velazquez Work Phone: [facility] 09-09-2022 13:13-0400 Body weight 85.[address] Santosh Velazquez Work Phone: [facility] 09-09-2022 13:13-0400 Diastolic blood pressure 73 mm[Hg] Dr. Santosh Velazquez Work Phone: [facility] 09-09-2022 13:13-0400 Heart rate 60 /min Dr. Santosh Velazquez Work Phone: [facility] 09-09-2022 13:13-0400 Respiratory rate 16 /min Dr. Santosh Velazquez Work Phone: [facility] 09-09-2022 13:13-0400 Systolic blood pressure 164 mm[Hg] Dr. Santosh Velazquez Work Phone: [facility] 08-07-2022 11:06-0400 Body mass index (BMI) [Ratio] 27.3 kg/m2 Dr. Santosh Velazquez Work Phone: [facility] 08-07-2022 11:06-0400 Body temperature 98.4 [degF] Dr. Santosh Velazquez Work Phone: [facility] 08-07-2022 11:06-0400 Body weight 83.[address] Santosh Velazquez Work Phone: [facility] 08-07-2022 11:06-0400 Diastolic blood pressure 62 mm[Hg] Dr. Santosh Velazquez Work Phone: [facility] 08-07-2022 11:06-0400 Heart rate 64 /min Dr. Santosh Velazquez Work Phone: [facility] 08-07-2022 11:06-0400 Respiratory rate 12 /min Dr. Santosh Velazquez Work Phone: [facility] 08-07-2022 11:06-0400 SaO2% (BldA) [Mass fraction] 97 % Dr. Santosh Velazquez Work Phone: [facility] 08-07-2022 11:06-0400 Systolic blood pressure 136 mm[Hg] Dr. Santosh Velazquez Work Phone: [facility] 07-16-2022 12:49-0400 Body weight 82.[address] Santosh Velazquez Work Phone: [facility] 07-16-2022 12:49-0400 Diastolic blood pressure 66 mm[Hg] Dr. Santosh Velazquez Work Phone: [facility] 07-16-2022 12:49-0400 Heart rate 56 /min Dr. Santosh Velazquez Work Phone: [facility] 07-16-2022 12:49-0400 Respiratory rate 18 /min Dr. Santosh Velazquez Work Phone: [facility] 07-16-2022 12:49-0400 SaO2% (BldA) [Mass fraction] 95 % Dr. Santosh Velazquez Work Phone: [facility] 07-16-2022 12:49-0400 Systolic blood pressure 147 mm[Hg] Dr. Santosh Velazquez Work Phone: [facility] 07-02-2022 06:43-0400 Body height 175.[address] Santosh Velazquez Work Phone: [facility] 07-02-2022 06:43-0400 Body weight 81.[address] Santosh Velazquez Work Phone: [facility] 06-26-2022 13:31-0400 Body weight 82.[address] Santosh Velazquez Work Phone: [facility] 06-26-2022 13:31-0400 Diastolic blood pressure 63 mm[Hg] Dr. Santosh Velazquez Work Phone: [facility] 06-26-2022 13:31-0400 Heart rate 56 /min Dr. Santosh Velazquez Work Phone: [facility] 06-26-2022 13:31-0400 Respiratory rate 16 /min Dr. Santosh Velazquez Work Phone: [facility] 06-26-2022 13:31-0400 SaO2% (BldA) [Mass fraction] 97 % Dr. Santosh Velazquez Work Phone: [facility] 06-26-2022 13:31-0400 Systolic blood pressure 149 mm[Hg] Dr. Santosh Velazquez Work Phone: [facility] 06-14-2022 01:54-0400 Body weight 81.[address] Santosh Velazquez Work Phone: [facility] 06-06-2022 09:50-0400 Body height 175.[address] Santosh Velazquez Work Phone: [facility] 06-06-2022 09:48-0400 Body mass index (BMI) [Ratio] 26.6 kg/m2 Dr. Santosh Velazquez Work Phone: [facility] 06-06-2022 09:48-0400 Body weight 81.[address] Santosh Velazquez Work Phone: [facility] 06-06-2022 09:48-0400 Diastolic blood pressure 46 mm[Hg] Dr. Santosh Velazquez Work Phone: [facility] 06-06-2022 09:48-0400 Heart rate 51 /min Dr. Santosh Velazquez Work Phone: [facility] 06-06-2022 09:48-0400 Respiratory rate 18 /min Dr. Santosh Velazquez Work Phone: [facility] 06-06-2022 09:48-0400 SaO2% (BldA) [Mass fraction] 98 % Dr. Santosh Velazquez Work Phone: [facility] 06-06-2022 09:48-0400 Systolic blood pressure 139 mm[Hg] Dr. Santosh Velazquez Work Phone: [facility] 06-02-2022 09:07-0400 Body weight 81.[address] Santosh Velazquez Work Phone: [facility] 05-06-2022 12:02-0500 Body height 175.[address] Santosh Velazquez Work Phone: [facility] 05-06-2022 12:02-0500 Body weight 80.[address] Santosh Velazquez Work Phone: [facility] 04-04-2022 13:50-0500 Body height 175.[address] Santosh Velazquez Work Phone: [facility] 04-04-2022 13:50-0500 Body mass index (BMI) [Ratio] 26.6 kg/m2 Dr. Santosh Velazquez Work Phone: [facility] 04-04-2022 13:50-0500 Body weight 81.[address] Santosh Velazquez Work Phone: [facility] 04-04-2022 13:50-0500 Diastolic blood pressure 62 mm[Hg] Dr. Santosh Velazquez Work Phone: [facility] 04-04-2022 13:50-0500 Heart rate 48 /min Dr. Santosh Velazquez Work Phone: [facility] 04-04-2022 13:50-0500 Respiratory rate 16 /min Dr. Santosh Velazquez Work Phone: [facility] 04-04-2022 13:50-0500 Systolic blood pressure 158 mm[Hg] Dr. Santosh Velazquez Work Phone: [facility] 04-04-2022 13:25-0500 Body weight 81.[address] Santosh Velazquez Work Phone: [facility] 04-04-2022 12:52-0500 Body mass index (BMI) [Ratio] 26.4 kg/m2 Dr. Santosh Velazquez Work Phone: [facility] 04-04-2022 12:52-0500 Body temperature 97.6 [degF] Dr. Santosh Velazquez Work Phone: [facility] 04-04-2022 12:52-0500 Diastolic blood pressure 70 mm[Hg] Dr. Santosh Velazquez Work Phone: [facility] 04-04-2022 12:52-0500 Heart rate 49 /min Dr. Santosh Velazquez Work Phone: [facility] 04-04-2022 12:52-0500 Respiratory rate 14 /min Dr. Santosh Velazquez Work Phone: [facility] 04-04-2022 12:52-0500 SaO2% (BldA) [Mass fraction] 97 % Dr. Santosh Velazquez Work Phone: [facility] 04-04-2022 12:52-0500 Systolic blood pressure 140 mm[Hg] Dr. Santosh Velazquez Work Phone: [facility] 03-27-2022 10:26-0500 Body mass index (BMI) [Ratio] 26.4 kg/m2 Dr. Santosh Velazquez Work Phone: [facility] 03-27-2022 10:26-0500 Body temperature 97.7 [degF] Dr. Santosh Velazquez Work Phone: [facility] 03-27-2022 10:26-0500 Body weight 81.[address] Santosh Velazquez Work Phone: [facility] 03-27-2022 10:26-0500 Diastolic blood pressure 70 mm[Hg] Dr. Santosh Velazquez Work Phone: [facility] 03-27-2022 10:26-0500 Heart rate 49 /min Dr. Santosh Velazquez Work Phone: [facility] 03-27-2022 10:26-0500 Respiratory rate 16 /min Dr. Santosh Velazquez Work Phone: [facility] 03-27-2022 10:26-0500 SaO2% (BldA) [Mass fraction] 97 % Dr. Santosh Velazquez Work Phone: [facility] 03-27-2022 10:26-0500 Systolic blood pressure 140 mm[Hg] Dr. Santosh Velazquez Work Phone: [facility] 03-22-2022 12:34-0500 Body temperature 98.1 [degF] Dr. Santosh Velazquez Work Phone: [facility] 03-22-2022 12:34-0500 Diastolic blood pressure 65 mm[Hg] Dr. Santosh Velazquez Work Phone: [facility] 03-22-2022 12:34-0500 Heart rate 54 /min Dr. Santosh Velazuqez Work Phone: [facility] 03-22-2022 12:34-0500 Respiratory rate 18 /min Dr. Santosh Velazquez Work Phone: [facility] 03-22-2022 12:34-0500 SaO2% (BldA) [Mass fraction] 92 % Dr. Santosh Velazquez Work Phone: [facility] 03-22-2022 12:34-0500 Systolic blood pressure 145 mm[Hg] Dr. Santosh Velazquez Work Phone: [facility] 03-21-2022 16:29-0500 Body height 175.[address] Santosh Velazquez Work Phone: [facility] Work Phone: 03-21-2022 16:29-0500 Body mass index (BMI) [Ratio] 25.7 kg/m2 Dr. Santosh Velazquez Work Phone: [facility] 03-21-2022 16:29-0500 Body weight 78.[address] Santosh Velazquez Work Phone: [facility] 02-28-2022 10:26-0500 Body height 167.[address] Santosh Velazquez Work Phone: [facility] Work Phone: 02-28-2022 10:26-0500 Body mass index (BMI) [Ratio] 28.7 kg/m2 Dr. Santosh Velazquez Work Phone: [facility] 02-28-2022 10:26-0500 Body weight 80.[address] Santosh Velazquez Work Phone: [facility] 02-28-2022 10:26-0500 Diastolic blood pressure 70 mm[Hg] Dr. Santosh Velazquez Work Phone: [facility] 02-28-2022 10:26-0500 Heart rate 51 /min Dr. Santosh Velazquez Work Phone: [facility] 02-28-2022 10:26-0500 Respiratory rate 18 /min Dr. Santosh Velazquez Work Phone: [facility] 02-28-2022 10:26-0500 SaO2% (BldA) [Mass fraction] 96 % Dr. Santosh Velazquez Work Phone: [facility] 02-28-2022 10:26-0500 Systolic blood pressure 170 mm[Hg] Dr. Santosh Velazquez Work Phone: [facility] 01-28-2022 10:17-0500 Body temperature 96.9 [degF] Dr. Santosh Velazquez Work Phone: [facility] 01-28-2022 10:17-0500 Body weight 80.[address] Santosh Velazquez Work Phone: [facility] 01-28-2022 10:17-0500 Diastolic blood pressure 80 mm[Hg] Dr. Santosh Velazquez Work Phone: [facility] 01-28-2022 10:17-0500 Heart rate 48 /min Dr. Santosh Velazquez Work Phone: [facility] 01-28-2022 10:17-0500 Respiratory rate 18 /min Dr. Santosh Velazquez Work Phone: [facility] 01-28-2022 10:17-0500 SaO2% (BldA) [Mass fraction] 97 % Dr. Santosh Velazquez Work Phone: [facility] 01-28-2022 10:17-0500 Systolic blood pressure 134 mm[Hg] Dr. Santosh Velazquez Work Phone: [facility] 12-20-2021 13:56-0400 Body temperature 97 [degF] Dr. Santosh Velazquez Work Phone: [facility] 12-20-2021 13:56-0400 Body weight 79.[address] Santosh Velazquez Work Phone: [facility] 12-20-2021 13:56-0400 Diastolic blood pressure 71 mm[Hg] Dr. Santosh Velazquez Work Phone: [facility] 12-20-2021 13:56-0400 Heart rate 52 /min Dr. Santosh Velazquez Work Phone: [facility] 12-20-2021 13:56-0400 Respiratory rate 17 /min Dr. Santosh Velazquez Work Phone: [facility] 12-20-2021 13:56-0400 SaO2% (BldA) [Mass fraction] 98 % Dr. Santosh Velazquez Work Phone: [facility] 12-20-2021 13:56-0400 Systolic blood pressure 146 mm[Hg] Dr. Santosh Velazquez Work Phone: [facility] 11-25-2021 11:22-0400 Body height 167.[address] Santosh Velazquez Work Phone: [facility] Work Phone: 11-25-2021 11:22-0400 Body mass index (BMI) [Ratio] 27.1 kg/m2 Dr. Santosh Velazquez Work Phone: [facility] Work Phone: 11-25-2021 11:22-0400 Body temperature 98 [degF] Dr. Santosh Velazquez Work Phone: [facility] Work Phone: 11-25-2021 11:22-0400 Body weight 76.[address] Santosh Velazquez Work Phone: [facility] Work Phone: 11-25-2021 11:22-0400 Diastolic blood pressure 59 mm[Hg] Dr. Santosh Velazquez Work Phone: [facility] Work Phone: 11-25-2021 11:22-0400 Heart rate 52 /min Dr. Santosh Velazquez Work Phone: [facility] Work Phone: 11-25-2021 11:22-0400 Respiratory rate 18 /min Dr. Santosh Velazquez Work Phone: [facility] Work Phone: 11-25-2021 11:22-0400 SaO2% (BldA) [Mass fraction] 98 % Dr. Santosh Velazquez Work Phone: [facility] Work Phone: 11-25-2021 11:22-0400 Systolic blood pressure 133 mm[Hg] Dr. Santosh Velazquez Work Phone: [facility] Work Phone: 11-25-2021 11:22-0400 Body mass index (BMI) [Ratio] 27.1 kg/m2 Dr. Santosh Velazquez Work Phone: [facility] Work Phone: 11-25-2021 11:22-0400 Body weight 76.[address] Santosh Velazquez Work Phone: [facility] Work Phone: 11-25-2021 11:22-0400 Diastolic blood pressure 63 mm[Hg] Dr. Santosh Velazquez Work Phone: [facility] Work Phone: 11-25-2021 11:22-0400 Heart rate 52 /min Dr. Santosh Velazquez Work Phone: [facility] Work Phone: 11-25-2021 11:22-0400 Respiratory rate 18 /min Dr. Santosh Velazquez Work Phone: [facility] Work Phone: 11-25-2021 11:22-0400 SaO2% (BldA) [Mass fraction] 99 % Dr. Santosh Velazquez Work Phone: [facility] Work Phone: 11-25-2021 11:22-0400 Systolic blood pressure 144 mm[Hg] Dr. Santosh Velazquez Work Phone: [facility] Work Phone: 11-21-2021 11:00-0400 Body mass index (BMI) [Ratio] 26.9 kg/m2 Dr. Santosh Velazquez Work Phone: [facility] Work Phone: 11-21-2021 11:00-0400 Body temperature 98.5 [degF] Dr. Santosh Velazquez Work Phone: [facility] Work Phone: 11-21-2021 11:00-0400 Body weight 75.[address] Santosh Velazquez Work Phone: [facility] Work Phone: 11-21-2021 11:00-0400 Diastolic blood pressure 74 mm[Hg] Dr. Santosh Velazquez Work Phone: [facility] Work Phone: 11-21-2021 11:00-0400 Heart rate 53 /min Dr. Santosh Velazquez Work Phone: [facility] Work Phone: 11-21-2021 11:00-0400 Respiratory rate 14 /min Dr. Santosh Velazquez Work Phone: [facility] Work Phone: 11-21-2021 11:00-0400 SaO2% (BldA) [Mass fraction] 97 % Dr. Santosh Velazquez Work Phone: [facility] Work Phone: 11-21-2021 11:00-0400 Systolic blood pressure 138 mm[Hg] Dr. Santosh Velazquez Work Phone: [facility] Work Phone: 11-17-2021 13:09-0400 Body temperature 97.8 [degF] Dr. Santosh Velazquez Work Phone: [facility] Work Phone: 11-17-2021 13:09-0400 Diastolic blood pressure 47 mm[Hg] Dr. Santosh Velazquez Work Phone: [facility] Work Phone: 11-17-2021 13:09-0400 Heart rate 60 /min Dr. Santosh Velazquez Work Phone: [facility] Work Phone: 11-17-2021 13:09-0400 Respiratory rate 16 /min Dr. Santosh Velazquez Work Phone: [facility] Work Phone: 11-17-2021 13:09-0400 SaO2% (BldA) [Mass fraction] 96 % Dr. Santosh Velazquez Work Phone: [facility] Work Phone: 11-17-2021 13:09-0400 Systolic blood pressure 151 mm[Hg] Dr. Santosh Velazquez Work Phone: [facility] Work Phone: 11-17-2021 06:00-0400 Body weight 75.[address] Santosh Velazquez Work Phone: [facility] Work Phone: 11-16-2021 09:13-0400 Body height [address] Santosh Velazquez Work Phone: [facility] Work Phone: 11-16-2021 03:00-0400 Inhaled oxygen flow rate 2 L/min Dr. Santosh Velazquez Work Phone: [facility] Work Phone: 11-12-2021 00:00-0400 Inhaled oxygen concentration 96 % Dr. Santosh Velazquez Work Phone: [facility] Work Phone: 11-11-2021 17:48-0400 Body mass index (BMI) [Ratio] 28.7 kg/m2 Dr. Santosh Velazquez Work Phone: [facility] Work Phone: 10-28-2021 08:51-0400 Body temperature 97 [degF] Dr. Santosh Velazquez Work Phone: [facility] Work Phone: 10-28-2021 08:51-0400 Body weight 78.[address] Santosh Velazquez Work Phone: [facility] Work Phone: 10-28-2021 08:51-0400 Diastolic blood pressure 68 mm[Hg] Dr. Santosh Velazquez Work Phone: [facility] Work Phone: 10-28-2021 08:51-0400 Heart rate 65 /min Dr. Santosh Velazquez Work Phone: [facility] Work Phone: 10-28-2021 08:51-0400 Respiratory rate 18 /min Dr. Santosh Velazquez Work Phone: [facility] Work Phone: 10-28-2021 08:51-0400 SaO2% (BldA) [Mass fraction] 97 % Dr. Santosh Velazquez Work Phone: [facility] Work Phone: 10-28-2021 08:51-0400 Systolic blood pressure 144 mm[Hg] Dr. Santosh Velazquez Work Phone: [facility] Work Phone: 10-10-2021 09:38-0400 Body temperature 97.6 [degF] Dr. Santosh Velazquez Work Phone: [facility] Work Phone: 10-10-2021 09:38-0400 Diastolic blood pressure 53 mm[Hg] Dr. Santosh Velazquez Work Phone: [facility] Work Phone: 10-10-2021 09:38-0400 Heart rate 62 /min Dr. Santosh Velazquez Work Phone: [facility] Work Phone: 10-10-2021 09:38-0400 Respiratory rate 16 /min Dr. Santosh Velazquez Work Phone: [facility] Work Phone: 10-10-2021 09:38-0400 SaO2% (BldA) [Mass fraction] 95 % Dr. Santosh Velazquez Work Phone: [facility] Work Phone: 10-10-2021 09:38-0400 Systolic blood pressure 101 mm[Hg] Dr. Santosh Velazquez Work Phone: [facility] Work Phone: 09-24-2021 08:54-0400 Body height 167.[address] Santosh Velazquez Work Phone: [facility] Work Phone: 09-24-2021 08:54-0400 Body weight 80.[address] Santosh Velazquez Work Phone: [facility] Work Phone: 09-23-2021 11:12-0400 Body mass index (BMI) [Ratio] 28.7 kg/m2 Dr. Santosh Velazquez Work Phone: [facility] Work Phone: 09-04-2021 14:43-0400 Body mass index (BMI) [Ratio] 28.7 kg/m2 Dr. Santosh Velazquez Work Phone: [facility] Work Phone: 09-04-2021 14:43-0400 Body weight 80.[address] Santosh Velazquez Work Phone: [facility] Work Phone: 09-04-2021 14:43-0400 Diastolic blood pressure 71 mm[Hg] Dr. Santosh Velazquez Work Phone: [facility] Work Phone: 09-04-2021 14:43-0400 Heart rate 64 /min Dr. Santosh Velazquez Work Phone: [facility] Work Phone: 09-04-2021 14:43-0400 Respiratory rate 18 /min Dr. Santosh Velazquez Work Phone: [facility] Work Phone: 09-04-2021 14:43-0400 SaO2% (BldA) [Mass fraction] 94 % Dr. Santosh Velazquez Work Phone: [facility] Work Phone: 09-04-2021 14:43-0400 Systolic blood pressure 136 mm[Hg] Dr. Santosh Velazquez Work Phone: [facility] Work Phone: 07-24-2021 12:49-0400 Body mass index (BMI) [Ratio] 28.4 kg/m2 Dr. Santosh Velazquez Work Phone: [facility] Work Phone: 07-24-2021 12:49-0400 Body temperature 97.7 [degF] Dr. Santosh Velaqzuez Work Phone: [facility] Work Phone: 07-24-2021 12:49-0400 Body weight 79.[address] Santosh Velazquez Work Phone: [facility] Work Phone: 07-24-2021 12:49-0400 Diastolic blood pressure 76 mm[Hg] Dr. Santosh Velazquez Work Phone: [facility] Work Phone: 07-24-2021 12:49-0400 Heart rate 63 /min Dr. Santosh Velazquez Work Phone: [facility] Work Phone: 07-24-2021 12:49-0400 Respiratory rate 14 /min Dr. Santosh Velazquez Work Phone: [facility] Work Phone: 07-24-2021 12:49-0400 SaO2% (BldA) [Mass fraction] 97 % Dr. Santosh Velazquez Work Phone: [facility] Work Phone: 07-24-2021 12:49-0400 Systolic blood pressure 144 mm[Hg] Dr. Santosh Velazquez Work Phone: [facility] Work Phone: 07-24-2021 12:49-0400 Body height 167.[address] Santosh Velazquez Work Phone: [facility] Work Phone: 07-24-2021 12:49-0400 Body mass index (BMI) [Ratio] 28.4 kg/m2 Dr. Santosh Velazquez Work Phone: [facility] Work Phone: 07-24-2021 12:49-0400 Body temperature 97.7 [degF] Dr. Santosh Velazquez Work Phone: [facility] Work Phone: 07-24-2021 12:49-0400 Body weight 79.[address] Santosh Velazquez Work Phone: [facility] Work Phone: 07-24-2021 12:49-0400 Diastolic blood pressure 76 mm[Hg] Dr. Santosh Velazquez Work Phone: [facility] Work Phone: 07-24-2021 12:49-0400 Heart rate 63 /min Dr. Santosh Velazquez Work Phone: [facility] Work Phone: 07-24-2021 12:49-0400 Respiratory rate 14 /min Dr. Santosh Velazquez Work Phone: [facility] Work Phone: 07-24-2021 12:49-0400 SaO2% (BldA) [Mass fraction] 97 % Dr. Santosh Velazquez Work Phone: [facility] Work Phone: 07-24-2021 12:49-0400 Systolic blood pressure 144 mm[Hg] Dr. Santosh Velazquez Work Phone: [facility] Work Phone: 07-04-2021 14:03-0400 Body mass index (BMI) [Ratio] 28.4 kg/m2 Dr. Santosh Velazquez Work Phone: [facility] Work Phone: 07-04-2021 14:03-0400 Body weight 79.[address] Santosh Velazquez Work Phone: [facility] Work Phone: 07-04-2021 14:03-0400 Respiratory rate 18 /min Dr. Santosh Velazquez Work Phone: [facility] Work Phone: 07-04-2021 14:03-0400 Body height 167.[address] Santosh Velazquez Work Phone: [facility] Work Phone: 07-04-2021 14:03-0400 Body mass index (BMI) [Ratio] 28.4 kg/m2 Dr. Santosh Velazquez Work Phone: [facility] Work Phone: 07-04-2021 14:03-0400 Body weight 79.[address] Santosh Velzaquez Work Phone: [facility] Work Phone: 07-04-2021 14:03-0400 Respiratory rate 18 /min Dr. Santosh Velazquez Work Phone: [facility] Work Phone: 04-03-2021 09:05-0500 Body weight 81.[address] Santosh Velazquez Work Phone: [facility] Work Phone: 04-03-2021 09:05-0500 Diastolic blood pressure 78 mm[Hg] Dr. Santosh Velazquez Work Phone: [facility] Work Phone: 04-03-2021 09:05-0500 Heart rate 64 /min Dr. Santosh Velazquez Work Phone: [facility] Work Phone: 04-03-2021 09:05-0500 Respiratory rate 16 /min Dr. Santosh Velazquez Work Phone: [facility] Work Phone: 04-03-2021 09:05-0500 Systolic blood pressure 160 mm[Hg] Dr. Santosh Velazquez Work Phone: [facility] Work Phone: 06-25-2020 10:04-0400 Body mass index (BMI) [Ratio] 26 kg/m2 Dr. Santosh Velazquez Work Phone: [facility] Work Phone: 11-20-2016 13:54-0400 BMI (Body Mass Index) 25.69 kg/m2 [facility] Work Phone: 11-20-2016 13:54-0400 BP Diastolic 70 mm[Hg] [facility] Work Phone: 11-20-2016 13:54-0400 BP Systolic 150 mm[Hg] [facility] Work Phone: 11-20-2016 13:54-0400 Height 175.26 cm [facility] Work Phone: 11-20-2016 13:54-0400 Pulse (Heart Rate) 60 /min [facility] Work Phone: 11-20-2016 13:54-0400 Respiratory Rate 20 /min [facility] Work Phone: 11-20-2016 13:54-0400 Weight 78.93 kg [facility] Work Phone: 09-19-2015 13:28-0400 BSA (Body Surface Area) 1.98 m2 [facility] Work Phone: Encounters Encounter Date Encounter Type Care Provider Facility Start: 01-17-2025 End: 01-17-2025 ambulatory Santosh Velaz[place] [place]: 01-11-2025 End: 01-11-[facility] Start: 01-04-2025 End: 01-04-2025 Office outpatient visit 25 minutes Ronnie Troy MD Work Phone: [facility] Comment on above: Chronic systolic hea rt failure (HCC) (Primary Dx); Cardiomyopathy, ischemic; Persistent atrial fibrillation (HCC); Coronary artery disease involving kake coronary artery of kake heart without angina pectoris; Essential hypertension; Acquired hypothyroidism; Mixed hyperlipidemia; ORACIO on CPAP; Centrilobular emphysema (HCC); Bilateral carotid artery stenosis; Claudication of both lower extremities; ICD (implantable cardioverter-defibrillator) in place Start: 01-04-2025 End: 01-04-2025 ambulatory RONNIE TROY [facility] Start: 12-19-2024 End: 12-19-2024 ambulatory ULISES PERDOMO [facility] Start: 12-19-2024 End: 12-19-2024 Subsequent hospital visit by physician Ulises Predomo MD Work Phone: [facility] Cath/EP Lab Comment on above: Chronic systolic hea rt failure (HCC); Cardiomyopathy, ischemic Start: 12-12-2024 End: 12-12-2024 ambulatory Shazia Mathias APRN - [employer] Work Phone: [facility] Comment on above: Chronic systolic hea rt failure (HCC) (Primary Dx); Cardiomyopathy, ischemic Start: 11-24-2024 End: 11-24-2024 Patient encounter procedure Kayla NICHOLE -[facility] Work Phone: Start: 11-24-2024 End: 11-24-[address] Santosh Velazquez DO Work Phone: -[facility] Start: 11-16-2024 Registered Referred Bud DO -Cardiovascular Services Work Phone: Start: 11-16-2024 ambulatory Santosh Velazquez [facility] Start: 11-15-2024 End: 11-15-2024 Office outpatient visit 40 minutes Ronnie Troy MD Work Phone: [facility] Comment on above: Systolic congestive heart failure with reduced left ventricular function, NYHA class 2 (HCC) (Primary Dx); Persistent atrial fibrillation (HCC); Coronary artery disease involving kake coronary artery of kake heart without angina pectoris; Essential hypertension; Mixed hyperlipidemia; Acquired hypothyroidism; ORACIO on CPAP; Centrilobular emphysema (HCC); Prostate cancer (HCC); Bilateral carotid artery stenosis; Claudication of both lower extremities (HCC); Nonrheumatic mitral valve regurgitation Start: 11-15-2024 End: 11-15-2024 ambulatory [facility] Start: 11-10-2024 End: 11-10-2024 Patient encounter procedure Bud DO -[facility] Work Phone: Start: 11-10-2024 End: 11-10-[address] Santosh Velazquez DO Work Phone: -[facility] Start: 11-03-2024 Non-patient / Non-visit Dr. Hsu [facility] [place] Start: 11-03-2024 End: 11-03-[address] Santosh Velazquez DO Work Phone: -Cardiovascular Services Start: 11-03-2024 End: 11-03-[address] Santosh Velazquez DO Work Phone: -Cardiovascular Services Work Phone: Start: 11-03-2024 End: 11-03-2024 ambulatory Santosh Velazquez Facility:[facility] Start: 10-20-2024 End: 01-19-2025 Transcribe Orders Lesli Jeffers [employer] - [employer] WORK[employer] Work Phone: [facility] Central Scheduling Start: 10-17-[address] Nazario Hogan on [facility] Oncology Start: 10-17-2024 End: 10-17-[address] Nazario Colby [facility] Cancer Care Work Phone: Start: 10-17-2024 End: 10-17-[address] Santosh Velazquez DO Work Phone: -[facility] Start: 10-14-2024 End: 10-14-2024 Orders Only Lesli Jeffers [employer] - [employer] Work Phone: [facility] Cardiology [facility] Comment on above: Paroxysmal atrial fi brillation (HCC) (Primary Dx) Start: 09-13-2024 Non-patient / Non-visit Dr. Gamal THOMAS -[facility] Work Phone: Start: 09-13-2024 End: 09-13-[address] Santosh Velazquez DO Work Phone: -Pulmonary Services/Neurology Start: 09-13-2024 End: 09-13-[address] Santosh Arteaga DO -Pulmonary Services/Neurology Work Phone: Start: 09-13-2024 End: 09-13-2024 ambulatory Santosh Velazquez Facility:[facility] Start: 09-08-2024 End: 09-08-[address] Santosh Velazquez DO Work Phone: [facility] Start: 09-08-2024 End: 09-08-[address] Santosh Arteaga DO -[facility] Work Phone: Start: 09-08-2024 End: 09-08-2024 ambulatory Santosh Velazquez Facility:[facility] Start: 08-31-2024 End: 08-31-[address] Santosh Arteaga DO -[facility] Work Phone: Start: 08-31-2024 End: 08-31-[address] Santosh Velazquez DO Work Phone: [facility] Work Phone: Start: 08-29-2024 End: 09-12-[address] Santosh Velazquez DO Work Phone: -Cardiac Rehab Start: 08-29-2024 End: 09-12-[address] Brendan Lloyd MD -Cardiac Rehab Work Phone: Start: 08-29-[address] Brendan eugene MD -Cardiac Rehab Work Phone: Start: 08-16-2024 End: 08-16-2024 Office outpatient new 60 minutes Ronnie Troy MD Work Phone: [facility] Cardiology [facility] Comment on above: Persistent atrial fi brillation (HCC) (Primary Dx); Acquired hypothyroidism; Mixed hyperlipidemia; ORACIO on CPAP; Centrilobular emphysema (HCC); Bilateral carotid artery stenosis; Coronary artery disease involving kake coronary artery of kake heart without angina pectoris; Essential hypertension; Systolic congestive heart failure with reduced left ventricular function, NYHA class 2 (HCC); Prostate cancer (HCC); Claudication of both lower extremities (HCC) Start: 08-16-2024 End: 08-16-2024 ambulatory [facility] Start: 08-16-2024 End: 08-16-[address] Nazario Colby DO -[facility] Work Phone: Start: 08-16-2024 End: 08-16-[address] Santosh Velazquez DO Work Phone: [facility] Work Phone: Start: 08-15-[address] Brendan eugene MD -Cardiac Rehab Work Phone: Start: 08-10-2024 End: 08-10-2024 Patient encounter procedure Bud DO -[facility] Work Phone: Start: 08-10-2024 End: 08-13-[address] Santosh Velazquez DO Work Phone: [facility] Work Phone: Start: 08-10-2024 End: 08-13-[address] Brendan Lloyd MD -Cardiac Rehab Work Phone: Start: 08-10-[address] Brendan eugene MD -Cardiac Rehab Work Phone: Start: 07-18-[address] Brendan eugene MD -Cardiac Rehab Work Phone: Start: 07-14-2024 End: 07-14-[address] Santosh Velazquez DO Work Phone: [facility] Work Phone: Start: 07-14-2024 End: 07-14-[address] Jam Cohen MD -Laboratory, [facility] Start: 07-13-2024 End: 07-13-[address] Vaughn Mcpherson MD -[facility] Work Phone: Start: 07-13-2024 End: 07-14-2024 ambulatory Jam Cohen Facility:[facility] Start: 07-13-2024 End: 07-13-[address] Brendan Lloyd MD -Cardiac Rehab Work Phone: Start: 07-11-2024 ambulatory Jelly NICHOLE [place] Start: 07-11-2024 Non-patient / Non-visit Dr. Blade verdin MD -[facility] Start: 07-11-2024 End: 07-11-2024 Patient encounter procedure Jelly Rogers PA -Cardiovascular Services Work Phone: Start: 07-11-2024 End: 07-11-2024 ambulatory Santosh Velazquez Facility:[facility] Start: 07-05-2024 ambulatory Vaughn Mcpherson Facility:[facility] Start: 07-05-2024 Non-patient / Non-visit Dr. Felipe yan DO -[facility] Start: 07-05-2024 End: 07-05-2024 Admission to same day surgery center Dr. Vaughn Mcpherson MD -[facility]/Special Procedures Work Phone: Start: 07-05-2024 End: 07-05-[address] Santosh Velazquez DO Work Phone: [facility] Work Phone: Start: 07-04-[address] Brendan eugene MD -Cardiac Rehab Work Phone: Start: 06-30-2024 End: 06-30-2024 Patient encounter procedure Bud DO -[facility] Work Phone: Start: 06-30-2024 End: 06-30-2024 ambulatory Santosh Velazquez Facility:[facility] Start: 06-13-2024 End: 06-13-[address] Santosh Velazquez DO Work Phone: [facility] Work Phone: Start: 06-13-2024 End: 06-13-[address] Brendan Lloyd MD -Cardiac Rehab Work Phone: Start: 06-08-2024 End: 06-08-[address] Santosh Velazquez DO Work Phone: [facility] Work Phone: Start: 06-08-2024 End: 06-08-2024 Patient encounter procedure Jelly NICHOLE -Laboratory, [place] Start: 06-07-2024 Non-patient / Non-visit Dr. Brendan hernandez MD -[facility] Start: 06-07-2024 End: 06-08-[address] Santosh Velazquez DO Work Phone: [facility] Work Phone: Start: 06-07-2024 End: 06-07-2024 Patient encounter procedure Jelly NICHOLE -Cardiovascular Services Work Phone: Start: 06-07-2024 End: 06-07-2024 ambulatory Jelly NICHOLE Facility:[facility] Start: 06-03-[address] Brendan eugene MD -Cardiac Rehab Work Phone: Start: 06-01-[address] Brendan eugene MD -Cardiac Rehab Work Phone: Start: 05-26-2024 End: 05-26-[address] Santosh Velazquez DO Work Phone: [facility] Work Phone: Start: 05-26-2024 End: 05-26-2024 Patient encounter procedure Jelly NICHOLE -Laboratory, [facility] Start: 05-26-2024 End: 05-26-2024 ambulatory Jelly NICHOLE Facility:[facility] Start: 05-19-2024 End: 05-19-[address] Santosh Velazquez DO Work Phone: [facility] Work Phone: Start: 05-19-2024 End: 05-19-[address] Brendan Lloyd MD -Cardiac Rehab Work Phone: Start: 05-19-2024 End: 05-19-2024 ambulatory [facility] Facility:[facility] Start: 05-03-2024 End: 05-03-[address] Santosh Arteaga DO -[facility] Work Phone: Start: 05-03-2024 End: 05-03-2024 ambulatory Santosh Velazquez Facility:[facility] Start: 04-28-2024 End: 04-28-2024 Patient encounter procedure Bud Saez NP-C -[facility] Work Phone: Start: 04-28-2024 End: 04-28-2024 ambulatory Santosh Velazquez Facility:[facility] Start: 04-25-2024 End: 04-25-[address] Jam Cohen MD -Laboratory, [facility] Start: 04-25-2024 End: 04-25-2024 ambulatory Santosh Velazquez Facility:[facility] Start: 04-19-2024 End: 04-19-2024 Emergency department patient visit Dr. Teofilo Gallagher DO -Emergency Department Work Phone: Start: 04-18-2024 Non-patient / Non-visit Dr. Brendan hernandez MD -[facility] Start: 04-18-2024 ambulatory Brendan Lloyd Facility:[facility] Start: 04-13-2024 Non-patient / Non-visit Dr. Antoine Westbrook DO -[facility] Work Phone: Start: 04-13-2024 ambulatory Santosh Velazquez Facilit y:[facility] Start: 04-12-2024 Non-patient / Non-visit Dr. Antoine Westbrook [facility] Phys[facility] Work Phone: Start: 04-12-2024 Non-patient / Non-visit Dr. Candace Vance MD [facility] Start: 04-11-2024 Non-patient / Non-visit Dr. Antoine Westbrook [facility] Work Phone: Start: 04-11-2024 Non-patient / Non-visit Dr. Candace Vance MD [facility] Start: 04-10-2024 Non-patient / Non-visit Dr. Candace Vance MD [facility] Start: 04-10-2024 Non-patient / Non-visit Dr. Blade zamudio [facility] Work Phone: Start: 04-09-2024 ambulatory Nagapradeimelda Vance Fa cility:[facility] Start: 04-09-2024 Non-patient / Non-visit Dr. Candace Vance MD [facility] Start: 04-08-2024 ambulatory Nagapradee Pinky Fa cility:[facility] Start: 04-08-2024 End: 04-13-2024 Evaluation and management of inpatient Dr. Patel Westbrook [facility] Work Phone: Start: 03-10-2024 End: 03-10-[address] Glen Wellington MD -Laboratory, [place] Start: 03-10-2024 End: 03-10-2024 Patient encounter procedure Kayla NICHOLE -[facility] Work Phone: Start: 03-10-2024 End: 03-10-2024 ambulatory Santosh Velazquez [place] Start: 03-10-2024 End: 03-10-2024 ambulatory Santosh Velazquez Facility:[facility] Start: 02-18-2024 End: 02-18-[address] Nazario Colby [facility] Work Phone: Start: 02-18-2024 End: 02-18-2024 ambulatory Santosh Velazquez [place] Start: 02-02-2024 End: 02-02-2024 ambulatory Santosh Velazquez [place] Start: 02-02-2024 End: 02-02-2024 ambulatory Santosh Velazquez Facility:[facility] Start: 07-21-2023 End: 07-21-[address] Santosh Velazquez Work Phone: [facility] Work Phone: Start: 07-21-2023 End: 07-21-[address] Santosh Velazquez Work Phone: [facility]-Laboratory Work Phone: Start: 07-16-[address] Celia Velazquez Work Phone: [facility]-Radiation Oncology Start: 07-16-2023 Non-patient / Non-visit Dr. Hill Work Phone: [facility] Work Phone: Start: 07-15-2023 End: 07-15-[address] Santosh Velazquez Work Phone: [facility] Work Phone: Start: 07-08-2023 End: 07-08-[address] Santosh Velazquez Work Phone: [facility] Work Phone: Start: 07-01-2023 End: 07-01-[address] Santosh Velazquez Work Phone: [facility] Work Phone: Start: 06-24-2023 End: 06-24-[address] Santosh Velazquez Work Phone: [facility] Work Phone: Start: 06-16-2023 End: 06-16-[address] Santosh Velazquez Work Phone: [facility] Work Phone: Start: 06-10-2023 End: 06-10-[address] Santosh Velazquez Work Phone: [facility] Work Phone: Start: 06-04-2023 Non-patient / Non-visit Dr. Hill Work Phone: [facility] Start: 05-27-2023 Non-patient / Non-visit Dr. Hill Work Phone: [facility] Start: 05-27-[address] Celia Velazquez Work Phone: [facility]-Radiation Oncology Start: 05-27-2023 End: 05-27-[address] Santosh Velazquez Work Phone: [facility] Work Phone: Start: 05-27-2023 End: 05-27-[address] Santosh Velazquez Work Phone: [facility] Work Phone: Start: 05-20-2023 End: 05-20-2023 Admission to same day surgery center Dr. Santosh Velazquez Work Phone: [facility]-Surgical Day Care Start: 05-20-2023 End: 05-20-[address] Santosh Velazquez Work Phone: [facility] Work Phone: Start: 04-30-2023 End: 04-30-[address] Santosh Velazquez Work Phone: [facility] Work Phone: Start: 04-28-[address] Celia Velazquez Work Phone: [facility] Oncology Start: 04-17-2023 Non-patient / Non-visit Dr. Hill Work Phone: [facility] Start: 04-17-2023 End: 04-17-[address] Santosh Velazquez Work Phone: [facility] Work Phone: Start: 04-17-2023 End: 04-17-[address] [facility] Start: 04-14-2023 End: 04-14-[address] Santosh Velazquez Work Phone: [facility] Work Phone: Start: 03-27-2023 Non-patient / Non-visit Dr. Hill Work Phone: [facility] Start: 03-26-2023 End: 03-26-[address] Santosh Velazquez Work Phone: [facility] Work Phone: Start: 03-26-2023 End: 03-26-[address] Santosh Velazquez [facility] Work [facility] Start: 03-24-2023 End: 03-24-[address] Santosh Velazquez Work Phone: [facility] Work Phone: Start: 03-23-2023 End: 03-23-[address] Santosh Velazquez Work Phone: [facility]-Laboratory, Specimen Work Phone: Start: 03-11-2023 End: 03-11-[address] Santosh Velazquez Work Phone: [facility] V[facility] Surgery Work Phone: Start: 02-24-2023 End: 02-24-[address] Santosh Velazquez Work Phone: [facility] Work Phone: Start: 02-24-2023 End: 02-24-[address] Santosh Velazquez Work Phone: [facility]-Laboratory Work Phone: Start: 11-20-2022 End: 11-20-[address] Santosh Velazquez Work Phone: [facility] Work Phone: Start: 11-20-2022 End: 11-20-[address] Santosh Velazquez Work Phone: [facility] Work Phone: Start: 11-12-2022 Non-patient / Non-visit Dr. Hill Work Phone: [facility] Start: 11-12-2022 End: 11-12-[address] Santosh Velazquez Work Phone: [facility] Work Phone: Start: 11-12-2022 End: 11-12-[address] Santosh Velazquez Work Phone: [facility]-Cardiovascular Services Work Phone: Start: 09-23-2022 End: 09-23-[address] Santosh Velazquez Work Phone: [facility] Work Phone: Start: 09-23-2022 End: 09-23-[address] Santosh Velazquez Work Phone: [facility]-Pulmonary Services/Neurology Work Phone: Start: 09-17-2022 End: 09-17-[address] Santosh Velazquez Work Phone: [facility]-Laboratory Work Phone: Start: 09-10-2022 End: 09-10-[address] Santosh Vealzquez Work Phone: [facility] Work Phone: Start: 09-09-2022 End: 09-09-[address] Santosh Velazquez Work Phone: [facility] Work Phone: Start: 08-07-2022 End: 08-07-[address] Santosh Velazquez Work Phone: [facility] Work Phone: Start: 07-16-2022 End: 07-16-[address] Santosh Velazquez Work Phone: [facility] Vascular Surgery Work Phone: Start: 07-09-2022 End: 07-13-[address] Santosh Velazquez Work Phone: [facility] Work Phone: Start: 07-09-2022 End: 07-13-[address] Santosh Velazquez Work Phone: [facility]-Cardiac Rehab Start: 07-09-[address] Celia Velazquez Work Phone: [facility]-Cardiac Rehab Start: 07-01-2022 Non-patient / Non-visit Dr. Hill Work Phone: [facility] Start: 07-01-2022 End: 07-01-[address] Santosh Velazquez Work Phone: [facility] Work Phone: Start: 07-01-2022 End: 07-01-[address] Santosh Velazquez [facility] Start: 06-26-2022 Telephone encounter Karla Cifuentes tthews [employer]DOWN WORKER Work Phone: [facility] Comment on above: Opened In Error Appointment (Appoint ment) Start: 06-26-2022 End: 06-26-[address] Santosh Velazquez Work Phone: [facility] Start: 06-25-[address] Celia Velazuqez Work Phone: [facility]-Cardiac Rehab Start: 06-18-2022 Non-patient / Non-visit Dr. Hill Work Phone: [facility] Start: 06-17-2022 End: 06-17-[address] Santosh Velazquez Work Phone: [facility] Work Phone: Start: 06-17-2022 End: 06-17-[address] Santosh Velazquez Work Phone: [facility]-Pulmonary Services/Neurology Start: 06-13-2022 End: 06-13-[address] Santosh Velazquez Work Phone: [facility] Work Phone: Start: 06-13-2022 End: 06-13-[address] Sanotsh Velazquez Work Phone: [facility]-Cardiac Rehab Start: 06-06-2022 End: 06-06-[address] Santosh Velazquez Work Phone: [facility] Start: 05-12-2022 End: 05-13-[address] Santosh Velazquez Work Phone: [facility] Work Phone: Start: 05-12-2022 End: 05-13-[address] Santosh Velazquez Work Phone: [facility]-Cardiac Rehab Start: 05-12-[address] Celia Velazquez Work Phone: [facility]-Cardiac Rehab Start: 05-08-2022 Non-patient / Non-visit Dr. Hill Work Phone: [facility] Start: 05-08-2022 End: 05-08-[address] Santosh Velazquez Work Phone: [facility] Work Phone: Start: 05-08-2022 End: 05-08-[address] Santosh Velazquez Work Phone: [facility]-Cardiovascular Services Start: 05-05-2022 End: 05-05-[address] Santosh Velazquez Work Phone: [facility] Work Phone: Start: 05-05-2022 End: 05-05-[address] Santosh Velazquez Work Phone: [facility]-Pulmonary Services/Neurology Start: 05-05-[address] Celia Velazquez Work Phone: [facility]-Cardiac Rehab Start: 04-14-2022 End: 04-15-[address] Santosh Velazquez Work Phone: [facility] Work Phone: Start: 04-14-2022 End: 04-15-[address] Santosh Velazquez Work Phone: [facility]-Cardiac Rehab Start: 04-14-[address] Celia Velazquez Work Phone: [facility]-Cardiac Rehab Start: 04-04-2022 End: 04-04-[address] Santosh Velazquez Work Phone: [facility] Start: 04-04-2022 End: 04-04-[address] Santosh Velazquez Work Phone: [facility] Work Phone: Start: 04-04-2022 End: 04-04-[address] Santosh Velazquez Work Phone: [facility]-Cardiac Rehab Start: 03-27-2022 End: 03-27-[address] Santosh Velazquez Work Phone: [facility] Start: 03-24-2022 Non-patient / Non-visit Dr. Hill Work Phone: [facility] Start: 03-21-2022 End: 03-21-2022 Non-patient / Non-visit Dr. Santosh Velazquez Work Phone: [facility] Start: 03-21-2022 End: 03-22-2022 Admission to same day surgery center Dr. Santosh Velazquez Work Phone: [facility]/Special Procedures Start: 03-21-2022 End: 03-22-[address] Santosh Velazquez Work Phone: [facility] Work Phone: Start: 02-28-2022 End: 02-28-[address] Santosh Velazquez Work Phone: [facility] Work Phone: Start: 02-28-2022 End: 02-28-[address] Santosh Velazquez Work Phone: [facility] Start: 02-28-2022 End: 02-28-[address] Santosh Velazquez Work Phone: [facility] Start: 01-28-2022 End: 01-28-[address] Santosh Velazquez Work Phone: [facility] Start: 01-17-2022 End: 01-17-[address] Santosh Velazquez Work Phone: [facility] Work Phone: Start: 01-17-2022 End: 01-17-[address] Santosh Velazquez Work Phone: [facility]-Laboratory Start: 12-20-2021 End: 12-20-[address] Santosh Velazquez Work Phone: [facility] Start: 11-28-2021 End: 11-28-[address] Santosh Velazquez Work Phone: [facility] Start: 11-25-2021 End: 11-25-[address] Santosh Velazquez Work Phone: [facility] Start: 11-21-2021 End: 11-21-[address] Santosh Velazquez Work Phone: [facility] Start: 11-17-2021 Non-patient / Non-visit [facility]. Hill Work Phone: [facility] [facility] Start: 11-16-2021 Non-patient / Non-visit Dr. Hill Work Phone: [facility] Start: 11-16-2021 Non-patient / Non-visit Dr. Hill Work Phone: [facility] Start: 11-15-2021 Non-patient / Non-visit Dr. Hill Work Phone: [facility] Start: 11-15-2021 Non-patient / Non-visit Dr. Hill Work Phone: [facility] Start: 11-14-2021 Non-patient / Non-visit Dr. Hill Work Phone: [facility] Start: 11-14-2021 End: 11-17-2021 Non-patient / Non-visit Dr. Santosh Velazquez Work Phone: [facility] Start: 11-13-2021 Non-patient / Non-visit Dr. Hill Work Phone: [facility] Start: 11-13-2021 Non-patient / Non-visit Dr. Hill Work Phone: [facility] Start: 11-12-2021 End: 11-17-2021 Non-patient / Non-visit Dr. Santosh Velazquez Work Phone: [facility] Start: 11-11-2021 Non-patient / Non-visit Dr. Hill Work Phone: [facility] Start: 11-11-2021 End: 11-17-2021 Evaluation and management of inpatient Dr. Santosh Velazquez Work Phone: [facility]-Pro[facility] Start: 11-05-2021 End: 11-17-2021 Non-patient / Non-visit Dr. Santosh Velazquez Work Phone: [facility] Start: 10-28-2021 End: 10-28-[address] Santosh Velazquez Work Phone: [facility] Start: 10-17-2021 End: 10-17-[address] Santosh Velazquez Work Phone: [facility] Start: 10-10-2021 End: 10-10-[address] Santosh Velazquez Work Phone: [facility] Start: 09-24-2021 End: 09-24-2021 Admission to same day surgery center Dr. Santosh Velazquez Work Phone: [facility]-Blending Kettle Tender/Special Procedures Start: 09-23-2021 Non-patient / Non-visit Dr. Hill Work Phone: [facility] Start: 09-04-2021 End: 09-04-[address] Santosh Velazquez Work Phone: [facility] Start: 08-22-2021 Non-patient / Non-visit Dr. Hill Work Phone: [facility] Start: 08-22-2021 End: 08-22-[address] [facility] Start: 08-15-2021 End: 08-15-[address] [facility] Start: 08-08-2021 End: 08-08-2021 ambulatory [facility] Facility:[facility] Start: 07-24-2021 End: 07-24-[address] Santosh Velazquez Work Phone: [facility] Start: 07-12-2021 Non-patient / Non-visit Dr. Hill Work Phone: [facility] Start: 07-12-2021 End: 07-12-[address] [facility] Velaz[facility] Start: 07-04-2021 End: 07-04-[address] Santosh Velazquez Work Phone: [facility] Start: 06-28-2021 End: 06-28-[address] Santosh Velazquez Work Phone: [facility] Start: 04-25-2021 Non-patient / Non-visit Dr. Hill Work Phone: [facility] Start: 04-25-2021 End: 04-25-[address] Santosh Velazquez Work Phone: [facility] Start: 04-03-2021 End: 04-03-[address] Santosh Velazquez Work Phone: [facility] Procedures Date Procedure Procedure Detail Performing Clinician Start: 01-04-2025 Ecg routine ecg w/le ast 12 lds w/i&r Ronnie Troy MD Work Phone: Start: 12-19-2024 Ecg routine ecg w/le ast 12 lds trcg only w/o i&r Shazia MargyShell [employer] Work Phone: Start: 12-19-2024 Electrophysiology study Shazia O'Shell [employer] Work Phone: Start: 12-19-2024 Ecg routine ecg w/le ast 12 lds trcg only w/o i&r Lesli Jan Jeffers [employer] Work Phone: Start: 12-19-2024 Basic metabolic pane l calcium total Lesli Jeffers [employer] Work Phone: Start: 11-15-2024 Ecg routine ecg w/le ast 12 lds w/i&r Ronnie Troy MD Work Phone: Start: 10-17-2024 Assay of prostate sp ecific antigen total Dr. Santosh Velazquez DO Work Phone: Comment on above: This test was perfor med using the [employer] tPSA method. Measured values of a patient sample can vary depending on the testing procedure used. PSA values determined on patient samples by different testing procedures cannot be used interchangeably. If there is a change in PSA assays while monitoring therapy, sequential testing should be performed to confirm baseline values. Start: 10-14-2024 OUTSIDE CARDIOLOGY SCAN Historical Provider Work Phone: Start: 09-13-2024 OUTSIDE CARDIOLOGY SCAN Historical Provider Work Phone: Start: 09-08-2024 Bilateral mammography Alyssa Velazquez DO Work Phone: Start: 09-08-[address] Santosh Velazquez DO Work Phone: Start: 08-16-2024 Ecg routine ecg w/le ast 12 lds w/i&r Ronnie Troy MD Work Phone: Start: 07-14-2024 Assay of prostate sp ecific antigen total Dr. Santosh Velazquez DO Work Phone: Comment on above: This test was perfor med using the [employer] tPSA method. Measured values of a patient sample can vary depending on the testing procedure used. PSA values determined on patient samples by different testing procedures cannot be used interchangeably. If there is a change in PSA assays while monitoring therapy, sequential testing should be performed to confirm baseline values. Start: 07-13-2024 Evaluation of diagno stic study results Dr. Santosh Velazquez DO Work Phone: Start: 06-30-2024 Evaluation of diagno stic study results Dr. Santosh Velazquez DO Work Phone: Start: 04-28-2024 Evaluation of diagno stic study results Dr. Santosh Velazquez DO Work Phone: Start: 04-25-2024 Assay of prostate sp ecific antigen total Dr. Santosh Velazquez DO Work Phone: Comment on above: This test was perfor med using the TPSA assay method for the[employer] chemistry system. Values obtained with differentassay methods cannot be used interchangably.When changing PSA assays in the course of monitoring apatient, additional sequential testing should be carriedout to confirm baseline values. Start: 04-12-[address] Santosh Velazquez DO Work Phone: Start: 04-12-2024 Measurement of renal function Dr. Santosh Velazquez DO Work Phone: Comment on above: GFR Calc Start: 04-09-2024 Plain chest X-ray Dr. Alyssa Velazquez DO Work Phone: Start: 04-08-2024 Plain chest X-ray Dr. Alyssa Velazquez DO Work Phone: Start: 04-08-2024 Legionella pneumophi la antigen assay Dr. Santosh Velazquez DO Work Phone: Start: 04-08-[address] Santosh Velazquez DO Work Phone: Start: 04-08-2024 SARS-CoV-2, Influenz a & RSV (PCR) Dr. Santosh Velazquez DO Work Phone: Start: 04-08-2024 End: 04-08-2024 Streptococcus pneumoniae antigen assay Dr. Santosh Velazquez DO Work Phone: Start: 05-27-2023 MRI of pelvis with contrast Dr. Santosh Velazquez Work Phone: Start: 05-20-2023 Space OAR (Not Applicable) Dr. Santosh Velazquez Work Phone: Start: 04-28-2023 Positron emission tomography with computed tomography Dr. Santosh Velazquez Work Phone: Start: 11-20-2022 CT angiography of ne ck vessels Dr. Santosh Velazquez Work Phone: Start: 11-13-2021 Plain chest X-ray Dr. Alyssa Velazquez Work Phone: Start: 11-11-[address] Santosh Velazquez Work Phone: Start: 11-05-2021 Plain chest X-ray Dr. Alyssa Velazquez Work Phone: Start: 10-17-2021 CT angiography of ne ck vessels Dr. Santosh Velazquez Work Phone: Start: 09-04-2021 Plain chest X-ray Dr. Alyssa Velazquez Work Phone: Start: 08-22-2021 Radionuclide imaging of perfusion of myocardium under exercise stress Dr. Santosh Velazquez Work Phone: Start: 07-12-2021 Echography of scrotu m and contents Dr. Santosh Velazquez Work Phone: Start: 06-28-2021 Computed tomography of abdomen and pelvis with intravenous contrast Dr. Santosh Velazquez Work Phone: Start: 11-20-2016 End: 11-20-2016 Follow Up Appt 6 months Jelly Rogers PA-C Work Phone: Start: 11-20-2016 End: 11-20-2016 PFM Jelly Rogers PA-C Work Phone: Start: 05-19-2016 End: 05-19-2016 Follow Up Appt 6 months Tyson Leroy MD Start: 05-19-2016 End: 05-19-2016 MMM Tyson Leroy MD Start: 03-05-2016 Lipid 1996 panel - S adore or Plasma Ronnie Troy MD Work Phone: Start: 03-05-2016 End: 11-11-2016 *Hepatic Function Panel Jelly Rogers PA-C Work Phone: Start: 03-05-2016 End: 11-11-2016 Lipid panel [AGGREGATE] Jelly Rogers PA-C Work Phone: Start: 09-19-2015 End: 09-19-2015 Follow Up Appt 6 months Jelly Rogers PA-C Work Phone: Start: 09-19-2015 End: 09-19-2015 PFM Jelly Rogers PA-C Work Phone: Start: 03-21-2015 End: 09-04-2015 Electrocardiogram, complete Tyson Leroy MD Start: 03-21-2015 End: 03-21-2015 Follow Up Appt 6 months Tyson Leroy MD Start: 03-21-2015 End: 03-21-2015 MMM Tyson Leroy MD Start: 03-21-2015 End: 03-29-2015 Nuclear stress test -exercise Tyson Leroy MD Start: 03-08-2015 End: 09-05-2015 *Hepatic Function Panel Jelly Rogers PA-C Work Phone: Start: 03-08-2015 End: 09-05-2015 Lipid panel [AGGREGATE] Jelly Rogers PA-C Work Phone: Start: 09-18-2014 End: 09-19-2014 Documentation of current medications Jelly Rogers PA-C Work Phone: Start: 09-18-2014 End: 09-18-2014 Follow Up Appt 6 months Jelly Rogers PA-C Work Phone: Start: 09-18-2014 End: 09-18-2014 PFM Jelly Rogers PA-C Work Phone: Start: 09-06-2014 End: 09-06-2014 *Hepatic Function Panel Jelly Rogers PA-C Work Phone: Start: 09-06-2014 End: 09-06-2014 Lipid panel [AGGREGATE] Jelly Rogers PA-C Work Phone: Start: 03-22-2014 End: 03-22-2014 [...] 08-14-2013 End: 09-06-2013 *Hepatic Function Panel Jelly Rogers PA-C Work Phone: Start: 08-14-2013 End: 09-06-2013 Lipid panel [AGGREGATE] Jelly Rogers PA-C Work Phone: Start: 03-10-2013 End: 09-04-2015 Arterial exam Jelly Rogres PA-C Work Phone: Start: 03-10-2013 End: 03-10-2013 Follow Up Appt 6 months Jelly Rogers PA-C Work Phone: Start: 03-10-2013 End: 09-04-2015 Nuclear stress test -exercise Jelly Rogers PA-C Work Phone: Start: 03-10-2013 End: 03-10-2013 PFM Jelly Rogers PA-C Work Phone: Start: 02-13-2013 End: 02-21-2013 *Hepatic Function Panel Jelly Rogers PA-C Work Phone: Start: 02-13-2013 End: 02-21-2013 Lipid panel [AGGREGATE] Jelly Rogers PA-C Work Phone: Start: 09-09-2012 End: 09-09-2012 Follow Up Appt 6 months Tyson Leroy MD Start: 09-09-2012 End: 09-09-2012 MMM Tyson Leroy MD Start: 08-14-2012 End: 09-02-2012 *Hepatic Function Panel Tyson Leroy MD Start: 08-14-2012 End: 09-02-2012 Lipid panel [AGGREGATE] Tyson Leroy MD Start: 03-01-2012 End: 09-09-2012 Echocardiography Tyson Leroy MD Start: 03-01-2012 End: 03-01-2012 Electrocardiogram, complete Tyson Leroy MD Start: 03-01-2012 End: 03-01-2012 Follow Up Appt 6 months Tyson Leroy MD Start: 03-01-2012 End: 09-09-2012 Nuclear stress test -exercise Tyson Leroy MD Start: 08-25-2011 End: 02-25-2012 *Hepatic Function Panel Tyson Leroy MD Start: 08-25-2011 End: 09-09-2012 Follow Up Appt 6 months Tyson Leroy MD Start: 08-25-2011 End: 02-25-2012 Lipid panel [AGGREGATE] Tyson Leroy MD Start: 02-26-2011 End: 02-25-2012 *Hepatic Function Panel Tyson Leroy MD Start: 02-26-2011 End: 05-05-2011 Electrocardiogram, complete Tyson Leroy MD Start: 02-26-2011 End: 05-05-2011 Follow Up Appt 6 months Tyson Leroy MD Start: 02-26-2011 End: 02-25-2012 Lipid panel [AGGREGATE] Tyson Leroy MD History of carotid endarterectomy Status post carotid endarterectomy Dr. Santosh Velazquez Work Phone: Comment on above: 11/11/2021 History of carotid endarterectomy History of left-sided carotid endarterectomy Dr. Santosh Velazquez Work Phone: History of carotid endarterectomy History of right-sided carotid endarterectomy Dr. Santosh Velazquez DO Work Phone: Comment on above: vitaliy bar Plan of Treatment Date Care Activity Detail Author Start: 06-21-2033 DTaP/Tdap/Td Vaccines (3 - Td or Tdap) DTaP/Tdap/Td Vaccines (3 - Td or Tdap) [facility] Start: 12-19-2025 Creatinine measurement Creatinine Level [facility] Start: 12-19-2025 Potassium measurement Potassium Level [facility] Start: 11-15-2025 Creatinine measurement Creatinine Level [facility] Start: 11-15-2025 Potassium measurement Potassium Level [facility] Start: 08-15-2025 End: 08-15-2025 Patient encounter procedure 08/15/2025 10:15 AM EDT Office Visit [facility] - [place] [address] [place] [address] [place] [address] Ronnie Troy MD [address] [place] [address] [place] [address] [facility] [place] Start: 04-13-2025 End: 04-13-2025 Professional / ancillary services management [facility] Start: 03-22-2025 End: 03-22-2025 Patient encounter procedure 03/22/2025 9:30 AM EST Office Visit [facility] [place] [address] [place] [address] [place] [address] Ronnie Troy MD [address] [place] [address] [place] [address] [facility] [place] Start: 02-21-2025 End: 02-21-2025 Patient encounter procedure 02/21/2025 11:00 AM EST Office Visit [facility] [place] [address] [place] [address] [place] [address] Ronnie Troy MD [address] [place] [address] [place] [address] [facility] [place] Start: 01-04-2025 End: 01-04-2025 Patient encounter procedure 01/04/2025 11:00 AM EDT Office Visit [facility] [place] [address] [place] [address] [place] [address] Ronnie Troy MD [address] [place] [address] [facility] Start: 12-19-2024 End: 12-19-2024 Admission to same day surgery center [facility] Comment on above: Implant ICD [85793 (CPT )] Start: 12-19-2024 Subsequent hospital visit by physician [facility] Comment on above: Chronic systolic heart failure (HCC); Cardiomyopathy, ischemic Start: 11-15-2024 End: 11-15-2025 Basic metabolic 1998 panel - Serum or Plasma Basic metabolic panel Lab Routine Persistent atrial fibrillation (HCC) Coronary artery disease involving kake coronary artery of kake heart without angina pectoris Essential hypertension ORACIO on CPAP Centrilobular emphysema (HCC) Prostate cancer (HCC) Systolic congestive heart failure with reduced left ventricular function, NYHA class 2 (HCC) Nonrheumatic mitral valve regurgitation Expected: 11/15/2024 (Approximate), Expires: 11/15/2025 [facility] [employer] [facility] Comment on above: Expected: 11/15/2024 (Approximate), Expi res: 11/15/2025 Start: 11-15-2024 End: 11-15-2025 Cardio IQ NT PROBNP (Quest) Cardio IQ NT PROBNP ([facility]) Lab Routine Persistent atrial fibrillation (HCC) Coronary artery disease involving kake coronary artery of kake heart without angina pectoris Essential hypertension ORACIO on CPAP Centrilobular emphysema (HCC) Prostate cancer (HCC) Systolic congestive heart failure with reduced left ventricular function, NYHA class 2 (HCC) Nonrheumatic mitral valve regurgitation Expected: 11/15/2024 (Approximate), Expires: 11/15/2025 [facility] Comment on above: Expected: 11/15/2024 (Approximate), Expi res: 11/15/2025 Start: 11-15-2024 End: 11-15-2025 CBC panel - Blood by Automated count CBC Lab Routine Persistent atrial fibrillation (HCC) Coronary artery disease involving kake coronary artery of kake heart without angina pectoris Essential hypertension ORACIO on CPAP Centrilobular emphysema (HCC) Prostate cancer (HCC) Systolic congestive heart failure with reduced left ventricular function, NYHA class 2 (HCC) Nonrheumatic mitral valve regurgitation Expected: 11/15/2024 (Approximate), Expires: 11/15/2025 [facility] Work Phone: Comment on above: Expected: 11/15/2024 (Approximate), Expi res: 11/15/2025 Start: 11-15-2024 End: 11-15-2024 Patient encounter procedure 11/15/2024 10:45 AM EDT Office Visit [facility] [address] [place] [address] Ronnie Troy MD [address] [place] [address] [facility] Start: 11-14-2024 COVID-19 Vaccine ( season) COVID-19 Vaccine ( season) [facility] Start: 11-14-2024 Influenza vaccination Influenza Vaccine (#1) [facility] Start: 10-17-2024 Prostate specific antigen measurement [facility] Start: 10-17-2024 [facility] Start: 10-14-2024 End: 10-14-2026 US Heart Transthoracic Transthoracic echocardiogram (TTE) complete with contrast, bubble, strain, and 3D PRN CV Echocardiography Routine Paroxysmal atrial fibrillation (HCC) Expected: 10/14/2024 (Approximate), Expires: 10/14/2026 [employer] Work Phone: Comment on above: Expected: 10/14/2024 (Approximate), Expi res: 10/14/2026 Start: 09-08-2024 Bilateral mammography DIAG MAMM W/CAD, BILAT [facility] Start: 07-20-2024 Patient referral [facility] Work Phone: Start: 07-05-2024 Patient discharge [facility] Start: 04-18-2024 Patient referral [facility] Work Phone: Start: 04-13-2024 Patient discharge [facility] Start: 04-13-2024 [facility] Start: 04-09-2024 Following clinical pathway protocol [facility] Start: 04-09-2024 Care planning and problem solving actions [facility] Start: 04-09-2024 Referral to service [facility] Start: 04-09-2024 Inhalation therapy procedure [facility] Start: 04-08-2024 End: 04-09-2024 [facility] Start: 04-08-2024 Application of elastic bandage [facility] Start: 04-08-2024 Assessment of risk of venous thromboembolism [facility] Start: 04-08-2024 Continuous positive airway pressure ventilation treatment [facility] Start: 04-08-2024 Elevation of affected extremity [facility] Start: 04-08-2024 Fall prevention [facility] Start: 04-08-2024 Insertion of catheter into peripheral vein [facility] Start: 04-08-2024 Introduction of urinary catheter [facility] Start: 04-08-2024 Measuring intake and output [facility] Start: 04-08-2024 Notification of physician [facility] Start: 04-08-2024 Oxygen therapy [facility] Start: 04-08-2024 Patient education [facility] Start: 04-08-2024 Patient referral to dietitian [facility] Start: 04-08-2024 Providing care according to standard [facility] Start: 04-08-2024 Provision of activity privileges [facility] Start: 04-08-2024 Referral to disease and insect control boss [facility] Start: 04-08-2024 Referral to occupational therapist [facility] Start: 04-08-2024 Referral to service [facility] Start: 04-08-2024 Following clinical pathway protocol [facility] Start: 04-08-2024 Care planning and problem solving actions [facility] Start: 04-08-2024 Admission procedure [facility] Start: 04-08-2024 Patient referral to [facility] Start: 11-15-2023 COVID-19 Vaccine ( season) COVID-19 Vaccine () [facility] Start: 05-20-2023 Anes integ extremities ant trunk & perineum nos ANESTH SKIN EXT/PER/ATRUNK [facility] Start: 05-20-2023 Plmt interstitial dev radiat tx prostate 1/mult PLACE RT DEVICE/MARKER PROS [facility] Start: 05-20-2023 Ambulation without limitation [facility] Start: 05-20-2023 Medication education [facility] Start: 05-20-2023 Patient discharge [facility] Start: 05-20-2023 Taking patient vital signs [facility] Start: 05-20-2023 [facility] Start: 11-14-2022 Influenza vaccination INFLUENZA (Season Ended) [facility] Start: 08-31-2022 RSV Immunization for Adults (1 - 1-dose 75+ series) RSV Immunization for Adults (1 - 1-dose 75+ series) [facility] Start: 04-04-2022 Patient referral to dietitian [facility] Start: 03-24-2022 Patient referral [facility] Work Phone: Start: 03-22-2022 [facility] Start: 03-21-2022 End: 03-22-2022 Patient discharge [facility] Start: 03-21-2022 Following clinical pathway protocol [facility] Start: 03-21-2022 Cardiac monitoring [facility] Start: 03-21-2022 Cardiac rehabilitation - phase 1 [facility] Start: 03-21-2022 Cardiac rehabilitation - phase 2 [facility] Start: 03-21-2022 Notification of physician [facility] Start: 03-21-2022 Oxygen therapy [facility] Start: 03-21-2022 Systemic arterial pressure monitoring [facility] Start: 03-21-2022 Taking patient vital signs [facility] Start: 03-21-2022 Vascular disease risk assessment [facility] Start: 03-21-2022 Vital signs measurements [facility] Start: 03-21-2022 End: 03-21-2022 [facility] Start: 03-21-2022 Admission procedure [facility] Start: 03-21-2022 Assessment of risk of venous thromboembolism [facility] Start: 03-21-2022 Insertion of catheter into peripheral vein [facility] Start: 03-21-2022 Measuring intake and output [facility] Start: 03-21-2022 Providing care according to standard [facility] Start: 03-16-2022 ADVANCE DIRECTIVE DISCUSSION ADVANCE DIRECTIVE DISCUSSION [facility] Start: 03-16-2022 DEPRESSION ASSESSMENT DEPRESSION ASSESSMENT [facility] Start: 11-17-2021 Patient discharge [facility] Work Phone: Start: 11-14-2021 Care planning and problem solving actions [facility] Work Phone: Start: 11-14-2021 [facility] Work Phone: Start: 11-13-2021 Referral to disease and insect control boss [facility] Work Phone: Start: 11-13-2021 Consultation [facility] Work Phone: Start: 11-13-2021 [facility] Work Phone: Start: 11-12-2021 Inhalation therapy procedure [facility] Work Phone: Start: 11-11-2021 Following clinical pathway protocol [facility] Work Phone: Start: 11-11-2021 Bedrest [facility] Work Phone: Start: 11-11-2021 Deep breathing and coughing exercises [facility] Work Phone: Start: 11-11-2021 Notification of physician [facility] Work Phone: Start: 11-11-2021 Oxygen therapy [facility] Work Phone: Start: 11-11-2021 End: 11-11-2021 Catheterization of vein [facility] Work Phone: Start: 11-11-2021 Incentive spirometry [facility] Work Phone: Start: 11-11-2021 Provision of activity privileges [facility] Work Phone: Start: 11-11-2021 Admission procedure [facility] Work Phone: Start: 11-11-2021 Assessment of risk of venous thromboembolism [facility] Work Phone: Start: 11-11-2021 Insertion of catheter into peripheral vein [facility] Work Phone: Start: 11-11-2021 Measuring intake and output [facility] Work Phone: Start: 11-11-2021 Patient referral to dietitian [facility] Work Phone: Start: 11-11-2021 Providing care according to standard [facility] Work Phone: Start: 11-11-2021 Referral to occupational therapist [facility] Work Phone: Start: 11-11-2021 Referral to service [facility] Work Phone: Start: 11-11-2021 Vital signs measurements [facility] Work Phone: Start: 11-11-2021 End: 11-11-2021 [facility] Work Phone: Start: 11-11-2021 End: 11-11-2021 Elevation of head of bed [facility] Work Phone: Start: 11-11-2021 Medication education [facility] Work Phone: Start: 09-24-2021 Notification of physician [facility] Work Phone: Start: 09-24-2021 Patient discharge [facility] Work Phone: Start: 09-24-2021 Provision of activity privileges [facility] Work Phone: Start: 09-24-2021 Pulse taking [facility] Work Phone: Start: 09-24-2021 Scheduling [facility] Work Phone: Start: 09-24-2021 Taking patient vital signs [facility] Work Phone: Start: 09-24-2021 Vascular disease risk assessment [facility] Work Phone: Start: 09-24-2021 Vital signs measurements [facility] Work Phone: Start: 09-24-2021 [facility] Work Phone: Start: 06-12-2021 COVID-19 VACCINE (4 - Booster for Moderna series) COVID-19 VACCINE (4 - Booster for Moderna series) [facility] Start: 03-05-2021 Lipid panel Lipid Panel [facility] Start: 07-20-2017 End: 07-20-2017 Appointment [facility] Work Phone: Start: [...] 6 months Follow Up Appt 6 months [facility] Work Phone: Start: 05-19-2016 End: 05-19-2016 MMM MMM [facility] Work Phone: Start: 03-05-2016 End: 11-11-2016 *Hepatic Function Panel *Hepatic Function Panel [facility] Work Phone: Start: 03-05-2016 End: 11-11-2016 Lipid panel [AGGREGATE] *Lipid Profile CC PCP [facility] Work Phone: Start: 09-19-2015 End: 09-19-2015 Follow Up Appt 6 months Follow Up Appt 6 months [facility] Work Phone: Start: 09-19-2015 End: 09-19-2015 PFM PFM [facility] Work Phone: Start: 03-21-2015 End: 09-04-2015 Electrocardiogram, complete EKG (In office) [facility] Work Phone: Start: 03-21-2015 End: 03-21-2015 Follow Up Appt 6 months Follow Up Appt 6 months [facility] Work Phone: Start: 03-21-2015 End: 03-21-2015 MMM MMM [facility] Work Phone: Start: 03-21-2015 End: 03-21-2015 Nuclear stress test -exercise Nuclear stress test -exercise [facility] Work Phone: Start: 03-08-2015 End: 09-05-2015 *Hepatic Function Panel *Hepatic Function Panel [facility] Work Phone: Start: 03-08-2015 End: 09-05-2015 Lipid panel [AGGREGATE] *Lipid Profile CC PCP [facility] Work Phone: Start: 09-18-2014 End: 09-18-2014 Follow Up Appt 6 months Follow Up Appt 6 months [facility] Work Phone: Start: 09-18-2014 End: 09-18-2014 PFM PFM [facility] Work Phone: Start: 09-13-2014 End: 09-06-2014 *Hepatic Function Panel *Hepatic Function Panel [facility] Work Phone: Start: 09-13-2014 End: 09-06-2014 Lipid panel [AGGREGATE] *Lipid Profile CC PCP [facility] Work Phone: Start: 03-22-2014 End: 03-22-2014 Follow Up Appt 6 months Follow Up Appt 6 months [facility] Work Phone: Start: 03-22-2014 End: 03-22-2014 MMM MMM [facility] Work Phone: Start: 02-13-2014 End: 03-13-2014 *Hepatic Function Panel *Hepatic Function Panel [facility] Work Phone: Start: 02-13-2014 End: 03-13-2014 Lipid panel [AGGREGATE] *Lipid Profile CC PCP [facility] Work Phone: Start: 09-14-2013 End: 09-04-2015 Vascular Surgery Vascular Surgery Evan Delatorre MD, [address] [facility] [address], [place], [address] [facility] Work Phone: Start: 09-12-2013 End: 03-13-2014 *Hepatic Function Panel *Hepatic Function Panel [facility] Work Phone: Start: 09-12-2013 End: 09-12-2013 Follow Up Appt 6 months Follow Up Appt 6 months [facility] Work Phone: Start: 09-12-2013 End: 03-13-2014 Lipid panel [AGGREGATE] *Lipid Profile CC PCP [facility] Work Phone: Start: 08-14-2013 End: 09-06-2013 *Hepatic Function Panel *Hepatic Function Panel [facility] Work Phone: Start: 08-14-2013 End: 09-06-2013 Lipid panel [AGGREGATE] *Lipid Profile CC PCP [facility] Work Phone: Start: 03-10-2013 End: 03-10-2013 Arterial exam Arterial exam [facility] Work Phone: Start: 03-10-2013 End: 03-10-2013 Follow Up Appt 6 months Follow Up Appt 6 months [facility] Work Phone: Start: 03-10-2013 End: 03-10-2013 Nuclear stress test -exercise Nuclear stress test -exercise [facility] Work Phone: Start: 03-10-2013 End: 03-10-2013 PFM PFM [facility] Work Phone: Start: 02-13-2013 End: 02-21-2013 *Hepatic Function Panel *Hepatic Function Panel [facility] Work Phone: Start: 02-13-2013 End: 02-21-2013 Lipid panel [AGGREGATE] *Lipid Profile CC PCP [facility] Work Phone: Start: 09-09-2012 End: 09-09-2012 Follow Up Appt 6 months Follow Up Appt 6 months [facility] Work Phone: Start: 09-09-2012 End: 09-09-2012 MMM MMM [facility] Work Phone: Start: 08-31-2012 PNEUMOCOCCAL: 65+ (1 - PCV) PNEUMOCOCCAL: 65+ (1 - PCV) [facility] Start: 08-14-2012 End: 09-02-2012 *Hepatic Function Panel *Hepatic Function Panel [facility] Work Phone: Start: 08-14-2012 End: 09-02-2012 Lipid panel [AGGREGATE] *Lipid Profile [facility] Work Phone: Start: 03-01-2012 End: 03-01-2012 Echocardiography Echocardiogram (complete) [facility] Work Phone: Start: 03-01-2012 End: 03-01-2012 Electrocardiogram, complete EKG (In office) [facility] Work Phone: Start: 03-01-2012 End: 03-01-2012 Follow Up Appt 6 months Follow Up Appt 6 months [facility] Work Phone: Start: 03-01-2012 End: 03-01-2012 Nuclear stress test -exercise Nuclear stress test -exercise [facility] Work Phone: Start: 08-25-2011 End: 02-25-2012 *Hepatic Function Panel *Hepatic Function Panel [facility] Work Phone: Start: 08-25-2011 End: 08-25-2011 Electrocardiogram, complete EKG (In office) [facility] Work Phone: Start: 08-25-2011 End: 09-09-2012 Follow Up Appt 6 months Follow Up Appt 6 months [facility] Work Phone: Start: 08-25-2011 End: 02-25-2012 Lipid panel [AGGREGATE] *Lipid Profile [facility] Work Phone: Start: 02-26-2011 End: 02-25-2012 *Hepatic Function Panel *Hepatic Function Panel [facility] Phone: Start: 02-26-2011 End: 05-05-2011 Electrocardiogram, complete EKG (In office) [facility] Work Phone: Start: 02-26-2011 End: 05-05-2011 Follow Up Appt 6 months Follow Up Appt 6 months [facility] Work Phone: Start: 02-26-2011 End: 02-25-2012 Lipid panel [AGGREGATE] *Lipid Profile [facility] Work Phone: Start: 08-31-1997 SHINGRIX VACCINE (1 of 2) SHINGRIX VACCINE (1 of 2) [facility] Start: 08-31-1992 COLOGUARD (FIT-DNA) COLOGUARD (FIT-DNA) [facility] Start: 08-31-1992 Colonoscopy COLONOSCOPY [facility] Start: 08-31-1992 COLORECTAL CANCER SCREENING COLORECTAL CANCER SCREENING [facility] Start: 08-31-[address] COLONOGRAPHY [facility] Start: 08-31-1992 DIABETES SCREEN DIABETES SCREEN [facility] Start: 08-31-1992 FECAL OCCULT BLOOD FECAL OCCULT BLOOD [facility] Start: 08-31-1992 SIGMOIDOSCOPY SIGMOIDOSCOPY [facility] Start: 08-31-1982 LIPID SCREEN LIPID SCREEN [facility] Start: 08-31-1966 Urine microalbumin profile DTAP,TDAP,TD (1 - Tdap) [facility] Start: 08-31-1965 HEPATITIS C SCREENING HEPATITIS C SCREENING [facility] Start: 08-31-1965 Hepatitis C screening Hepatitis C Screening [facility] Start: 1959 Depression Screening Depression Screening [facility] Start: 1945 ABDOMINAL AORTIC ANEURYSM SCREENING ABDOMINAL AORTIC ANEURYSM SCREENING [facility] Start: 1945 Creatinine measurement Creatinine Level [facility] Start: 1945 Echocardiography Echocardiogram [facility] Start: 1945 Medicare Annual Wellness (AWV) Medicare Annual Wellness (AWV) [facility] Start: 1945 Potassium measurement Potassium Level [facility] Start: 1945 Thyroid stimulating hormone measurement TSH Level [facility] 24 Hour ECG [facility] Ambulatory ECG [facility] Ankle brachial press ure index [facility] Ankle brachial press ure index [facility] Cardiac event recording [facility] Cardioversion [facility] Catheterization of l eft heart [facility] Work Phone: Measurement of respiratory function [facility] Patient Education [facility] Work Phone: Patient referral [facility] Work Phone: Positron emission tomography with computed tomography [facility] Prostate specific an tigen measurement [facility] Prostate specific an tigen measurement [facility] US Breast limited [facility] Carotid arteries [facility] Work Phone: US Carotid arteries [facility] Heart limited [facility] Heart limited [facility] End: 12-19-2024 XR Chest 2 Views [employer] Work Phone: Comment on above: Once for 1 Occurrences starting 12/20/19 until 12/19/2024 End: 12-19-2024 XR Chest Single view [employer] Work Phone: Comment on above: Once for 1 Occurrences starting 12/20/19 until 12/19/2024 [facility] Immunizations Immunization Date Immunization Notes Care Provider [facility] 12-22-2023 influenza, high dose seasonal, preservative-free Dr. Santosh Velazquez DO Work Phone: [facility] 12-22-2023 influenza virus vacc ine, unspecified formulation Lesli Jeffers [employer] Work Phone: [facility] [employer] 12-15-2023 Influenza High-Dose Quadrivalent Dr. Santosh Velazquez DO Work Phone: [facility] 06-22-2023 tetanus toxoid, redu oliver diphtheria toxoid, and acellular pertussis vaccine, adsorbed Dr. Santosh Velazquez DO Work Phone: [facility] 12-08-2022 Influenza High-Dose Quadrivalent Dr. Santosh Velazquez DO Work Phone: [facility] 02-28-2022 influenza, injectabl e, quadrivalent, preservative free Dr. Santosh Velazquez Work Phone: [facility] 02-28-2022 influenza, seasonal, injectable Dr. Santosh Velazquez Work Phone: [facility] 04-17-2021 Covid (Pfizer) Dr. Santosh hahn DO Work Phone: [facility] 06-13-2020 Covid (Moderna) Dr. Santosh Velazquez DO Work Phone: [facility] 05-16-2020 Covid (Moderna) Dr. Santosh Velazquez DO Work Phone: [facility] 12-14-2016 influenza, injectabl e, quadrivalent, preservative free Dr. Santosh Velazquez DO Work Phone: [facility] 12-14-2016 pneumococcal polysaccharide vaccine, [address] Santosh Velazquez DO Work Phone: [facility] Payers Date Payer Category Payer Self-pay [id number] 2015 Medicare supplementa l policy (as second payer) [employer] MEDICARE SUPPLEMENT [id number] 2015 Private Health Insurance HUMANA HUMANA MEDICARE SUPPLEMENT [id number] 2015-Present [phone] [place] [id number] Indemnity [id number] 2015 Private Health Insurance [id number] 2012 Medicare [id number] 2012 Medicare [id number] Unknown VES VET [facility] [id number] Unknown [id number] 2.16.840.1.555136.3.579 .2.462 Unknown [id number] 2.16.840.1.496214.3.579 .2.462 Unknown [id number] 2.16.840.1.489613.3.579 .2.462 Unknown [id number] 2.16.840.1.238380.3.579 .2.462 Unknown [id number] 2.16.840.1.103529.3.579 .2.462 Unknown [id number] 2.16.840.1.391234.3.579 .2.462 Unknown [id number] 2.16.840.1.481189.3.579 .2.462 Unknown [id number] 2.16.840.1.344355.3.579 .2.462 Unknown [id number] 2.16.840.1.518949.3.579 .2.462 Unknown [id number] 2.16.840.1.394114.3.579 .2.462 Unknown [id number] 2.16.840.1.215034.3.579 .2.462 Unknown [id number] 2.16.840.1.263011.3.579 .2.462 Unknown [id number] 2.16.840.1.210933.3.579 .2.462 Unknown [id number] 2.16.840.1.491581.3.579 .2.462 Unknown [id number] 2.16.840.1.498035.3.579 .2.462 Unknown [id number] 2.16.840.1.781156.3.579 .2.462 Unknown [id number] 2.16.840.1.484033.3.579 .2.462 Unknown [id number] 2.16.840.1.695147.3.579 .2.462 Unknown [id number] 2.16.840.1.349101.3.579 .2.462 Unknown [id number] 2.16.840.1.314152.3.579 .2.462 Unknown [id number] 2.16.840.1.821465.3.579 .2.462 Unknown [id number] 2.16.840.1.485447.3.579 .2.462 Unknown [id number] 2.16.840.1.900552.3.579 .2.462 Unknown [id number] 2.16.840.1.199900.3.579 .2.462 Unknown [id number] 2.16.840.1.318913.3.579 .2.462 Unknown [id number] 2.16.840.1.508245.3.579 .2.462 Unknown [id number] 2.16.840.1.490442.3.579 .2.462 Unknown [id number] 2.16.840.1.285006.3.579 .2.462 Unknown [id number] 2.16.840.1.358979.3.579 .2.462 Unknown [id number] 2.16.840.1.463381.3.579 .2.462 Unknown [id number] 2.16.840.1.499482.3.579 .2.462 Unknown [id number] 2.16.840.1.435317.3.579 .2.462 Unknown [id number] 2.16.840.1.325509.3.579 .2.462 Unknown [id number] 2.16.840.1.001273.3.579 .2.462 Unknown [id number] 2.16.840.1.130329.3.579 .2.462 Unknown [id number] 2.16.840.1.461819.3.579 .2.462 Unknown [id number] 2.16.840.1.852618.3.579 .2.462 Unknown [id number] 2.16.840.1.595974.3.579 .2.462 Unknown [id number] 2.840.1.036575.3.579 .2.462 Unknown [id number] 2.16.840.1.744446.3.579 .2.462 Unknown [id number] 2.840.1.440720.3.579 .2.462 Unknown [id number] 2.840.1.982802.3.579 .2.462 Unknown [id number] 2.840.1.860410.3.579 .2.462 Unknown [id number] 2.840.1.973898.3.579 .2.462 Unknown [id number] 2.840.1.774293.3.579 .2.462 Unknown [id number] 2.840.1.233384.3.579 .2.462 Unknown [id number] 2.840.1.955776.3.579 .2.462 Unknown [id number] 2.840.1.222156.3.579 .2.462 Unknown [id number] 2.840.1.425008.3.579 .2.462 Unknown [id number] 2.840.1.790915.3.579 .2.462 Unknown [id number] 2.840.1.631549.3.579 .2.462 Unknown [id number] 2.840.1.617659.3.579 .2.462 Unknown [id number] 2.840.1.034392.3.579 .2.462 Unknown [id number] 2.16.840.1.068536.3.579 .2.462 Unknown [id number] 2.16.840.1.420786.3.579 .2.462 Social History Date Type Detail Facility Start: 07-04-2021 End: 09-10-2022 Tobacco smoking status [facility] Unknown if ever smoked [facility] Start: 1945 Sex Assigned At Male W [facility] Start: 07-13-2018 End: 08-02-2024 Tobacco smoking status NHIS Ex-smoker [facility] End: 06-14-1998 History of tobacco use Current smoker [facility] End: 06-14-1998 History of tobacco use Cigarette Smoker [facility] Start: 07-13-2018 End: 01-04-2025 Cigarettes smoked current (pack per day) - Reported 2 [facility] Start: 07-13-2018 End: 08-02-2024 Tobacco use and exposure Smokeless tobacco non-user [facility] Start: 08-08-2021 Alcohol intake Ex-drinker (finding) [facility] Start: 07-13-2018 Alcohol Comment recovering alcoholic [facility] Start: 1945 Sex Assigned At Not on file C [facility] Start: 10-14-2021 End: 06-02-2024 Sex Male (finding) [facility] Start: 08-16-2024 End: 01-04-2025 Alcoholic beverage intake Lifetime non-drinker (finding) [facility] Start: 08-16-2024 End: 01-04-2025 Tobacco use panel [facility] Within the last year , have you been afraid of your partner or ex-partner? No [facility] Medical Equipment Procedure Code Equipment Code Equipment Origin al Text Equipment Identifier Dates Endarterectomy, carotid SUTURE,LIGA CLIP MED [id number] FDA Start: 11-11-2021 Endarterectomy, carotid SUTURE,LIGA CLIP MED LT200 FDA Start: 11-11-2021 Endarterectomy, carotid SUTURE,LIGA CLIP SM LT-100 FDA Start: 11-11-2021 Endarterectomy, carotid SUTURE,LIGA CLIP SM LT-100 FDA Start: 11-11-2021 Endarterectomy, carotid SUTURE,LIGA CLIP SM LT-100 FDA Start: 11-11-2021 Endarterectomy, carotid ([id number]) Cardiovascular patch, animal-derived ()[id number] FDA Start: 11-11-2021 Endarterectomy, carotid Plant polysaccharide haemostatic agent, bioabsorbable ()[id number] FDA Start: 11-11-2021 Endarterectomy, carotid SUTURE,LIGA CLIP MED [id number] FDA Start: 11-11-2021 Endarterectomy, carotid SUTURE,LIGA CLIP MED [id number] FDA Start: 11-11-2021 Endarterectomy, carotid SUTURE,LIGA CLIP SM LT-100 FDA Start: 11-11-2021 Endarterectomy, carotid SUTURE,LIGA CLIP SM LT-100 FDA Start: 11-11-2021 Endarterectomy, carotid SUTURE,LIGA CLIP SM LT-100 FDA Start: 11-11-2021 Endarterectomy, carotid SUTURE,LIGA CLIP MED [id number] FDA Start: 11-11-2021 Endarterectomy, carotid SUTURE,LIGA CLIP MED [id number] FDA Start: 11-11-2021 Endarterectomy, carotid SUTURE,LIGA CLIP SM LT-100 FDA Start: 11-11-2021 Endarterectomy, carotid SUTURE,LIGA CLIP SM LT-100 FDA Start: 11-11-2021 Endarterectomy, carotid SUTURE,LIGA CLIP SM LT-100 FDA Start: 11-11-2021 Endarterectomy, carotid SUTURE,LIGA CLIP MED [id number] FDA Start: 11-11-2021 Endarterectomy, carotid SUTURE,LIGA CLIP MED [id number] FDA Start: 11-11-2021 Endarterectomy, carotid SUTURE,LIGA CLIP SM LT-100 FDA Start: 11-11-2021 Endarterectomy, carotid SUTURE,LIGA CLIP SM LT-100 FDA Start: 11-11-2021 Endarterectomy, carotid SUTURE,LIGA CLIP SM LT-100 FDA Start: 11-11-2021 Endarterectomy, carotid SUTURE,LIGA CLIP MED [id number] FDA Start: 11-11-2021 Endarterectomy, carotid SUTURE,LIGA CLIP MED [id number] FDA Start: 11-11-2021 Endarterectomy, carotid SUTURE,LIGA CLIP SM LT-100 FDA Start: 11-11-2021 Endarterectomy, carotid SUTURE,LIGA CLIP SM LT-100 FDA Start: 11-11-2021 Endarterectomy, carotid SUTURE,LIGA CLIP SM LT-100 FDA Start: 11-11-2021 Endarterectomy, carotid SUTURE,LIGA CLIP MED [id number] FDA Start: 11-11-2021 Endarterectomy, carotid SUTURE,LIGA CLIP MED [id number] FDA Start: 11-11-2021 Endarterectomy, carotid SUTURE,LIGA CLIP SM LT-100 FDA Start: 11-11-2021 Endarterectomy, carotid SUTURE,LIGA CLIP SM LT-100 FDA Start: 11-11-2021 Endarterectomy, carotid SUTURE,LIGA CLIP SM LT-100 FDA Start: 11-11-2021 Endarterectomy, carotid SUTURE,LIGA CLIP MED LT200 FDA Start: 11-11-2021 Endarterectomy, carotid SUTURE,LIGA CLIP MED LT200 FDA Start: 11-11-2021 Endarterectomy, carotid SUTURE,LIGA CLIP SM LT-100 FDA Start: 11-11-2021 Endarterectomy, carotid SUTURE,LIGA CLIP SM LT-100 FDA Start: 11-11-2021 Endarterectomy, carotid SUTURE,LIGA CLIP SM LT-100 FDA Start: 11-11-2021 Endarterectomy, carotid SUTURE,LIGA CLIP MED [id number] FDA Start: 11-11-2021 Endarterectomy, carotid SUTURE,LIGA CLIP MED LT200 FDA Start: 11-11-2021 Endarterectomy, carotid SUTURE,LIGA CLIP SM LT-100 FDA Start: 11-11-2021 Endarterectomy, carotid SUTURE,LIGA CLIP SM LT-100 FDA Start: 11-11-2021 Endarterectomy, carotid SUTURE,LIGA CLIP SM LT-100 FDA Start: 11-11-2021 Endarterectomy, carotid SUTURE,LIGA CLIP MED [id number] FDA Start: 11-11-2021 Endarterectomy, carotid SUTURE,LIGA CLIP MED LT200 FDA Start: 11-11-2021 Endarterectomy, carotid SUTURE,LIGA CLIP SM LT-100 FDA Start: 11-11-2021 Endarterectomy, carotid SUTURE,LIGA CLIP SM LT-100 FDA Start: 11-11-2021 Endarterectomy, carotid SUTURE,LIGA CLIP SM LT-100 FDA Start: 08-29-2022 Endarterectomy, carotid SUTURE,LIGA CLIP MED LT200 FDA Start: 11-11-2021 Endarterectomy, carotid SUTURE,LIGA CLIP MED LT200 FDA Start: 11-11-2021 Endarterectomy, carotid SUTURE,LIGA CLIP SM LT-100 FDA Start: 11-11-2021 Endarterectomy, carotid SUTURE,LIGA CLIP SM LT-100 FDA Start: 11-11-2021 Endarterectomy, carotid SUTURE,LIGA CLIP SM LT-100 FDA Start: 11-11-2021 Endarterectomy, carotid SUTURE,LIGA CLIP MED LT200 FDA Start: 11-11-2021 Endarterectomy, carotid SUTURE,LIGA CLIP MED LT200 FDA Start: 11-11-2021 Endarterectomy, carotid SUTURE,LIGA CLIP SM LT-100 FDA Start: 11-11-2021 Endarterectomy, carotid SUTURE,LIGA CLIP SM LT-100 FDA Start: 11-11-2021 Endarterectomy, carotid SUTURE,LIGA CLIP SM LT-100 FDA Start: 11-11-2021 Endarterectomy, carotid SUTURE,LIGA CLIP MED LT200 FDA Start: 11-11-2021 Endarterectomy, carotid SUTURE,LIGA CLIP MED LT200 FDA Start: 11-11-2021 Endarterectomy, carotid SUTURE,LIGA CLIP SM LT-100 FDA Start: 11-11-2021 Endarterectomy, carotid SUTURE,LIGA CLIP SM LT-100 FDA Start: 11-11-2021 Endarterectomy, carotid SUTURE,LIGA CLIP SM LT-100 FDA Start: 11-11-2021 Endarterectomy, carotid SUTURE,LIGA CLIP MED LT200 FDA Start: 11-11-2021 Endarterectomy, carotid SUTURE,LIGA CLIP MED LT200 FDA Start: 11-11-2021 Endarterectomy, carotid SUTURE,LIGA CLIP SM LT-100 FDA Start: 11-11-2021 Endarterectomy, carotid SUTURE,LIGA CLIP SM LT-100 FDA Start: 11-11-2021 Endarterectomy, carotid SUTURE,LIGA CLIP SM LT-100 FDA Start: 11-11-2021 Endarterectomy, carotid SUTURE,LIGA CLIP MED LT200 FDA Start: 11-11-2021 Endarterectomy, carotid SUTURE,LIGA CLIP MED LT200 FDA Start: 11-11-2021 Endarterectomy, carotid SUTURE,LIGA CLIP SM LT-100 FDA Start: 11-11-2021 Endarterectomy, carotid SUTURE,LIGA CLIP SM LT-100 FDA Start: 11-11-2021 Endarterectomy, carotid SUTURE,LIGA CLIP SM LT-100 FDA Start: 11-11-2021 Endarterectomy, carotid SUTURE,LIGA CLIP MED LT200 FDA Start: 11-11-2021 Endarterectomy, carotid SUTURE,LIGA CLIP MED LT200 FDA Start: 11-11-2021 Endarterectomy, carotid SUTURE,LIGA CLIP SM LT-100 FDA Start: 11-11-2021 Endarterectomy, carotid SUTURE,LIGA CLIP SM LT-100 FDA Start: 11-11-2021 Endarterectomy, carotid SUTURE,LIGA CLIP SM LT-100 FDA Start: 11-11-2021 Endarterectomy, carotid SUTURE,LIGA CLIP MED LT200 FDA Start: 11-11-2021 Endarterectomy, carotid SUTURE,LIGA CLIP MED LT200 FDA Start: 11-11-2021 Endarterectomy, carotid SUTURE,LIGA CLIP SM LT-100 FDA Start: 11-11-2021 Endarterectomy, carotid SUTURE,LIGA CLIP SM LT-100 FDA Start: 11-11-2021 Endarterectomy, carotid SUTURE,LIGA CLIP SM LT-100 FDA Start: 11-11-2021 Endarterectomy, carotid SUTURE,LIGA CLIP MED LT200 FDA Start: 11-11-2021 Endarterectomy, carotid SUTURE,LIGA CLIP MED LT200 FDA Start: 11-11-2021 Endarterectomy, carotid SUTURE,LIGA CLIP SM LT-100 FDA Start: 11-11-2021 Endarterectomy, carotid SUTURE,LIGA CLIP SM LT-100 FDA Start: 11-11-2021 Endarterectomy, carotid SUTURE,LIGA CLIP SM LT-100 FDA Start: 11-11-2021 Endarterectomy, carotid SUTURE,LIGA CLIP MED LT200 FDA Start: 11-11-2021 Endarterectomy, carotid SUTURE,LIGA CLIP MED LT200 FDA Start: 11-11-2021 Endarterectomy, carotid SUTURE,LIGA CLIP SM LT-100 FDA Start: 11-11-2021 Endarterectomy, carotid SUTURE,LIGA CLIP SM LT-100 FDA Start: 11-11-2021 Endarterectomy, carotid SUTURE,LIGA CLIP SM LT-100 FDA Start: 11-11-2021 Endarterectomy, carotid SUTURE,LIGA CLIP MED LT200 FDA Start: 11-11-2021 Endarterectomy, carotid SUTURE,LIGA CLIP MED LT200 FDA Start: 11-11-2021 Endarterectomy, carotid SUTURE,LIGA CLIP SM LT-100 FDA Start: 11-11-2021 Endarterectomy, carotid SUTURE,LIGA CLIP SM LT-100 FDA Start: 11-11-2021 Endarterectomy, carotid SUTURE,LIGA CLIP SM LT-100 FDA Start: 11-11-2021 Endarterectomy, carotid SUTURE,LIGA CLIP MED [id number] FDA Start: 11-11-2021 Endarterectomy, carotid SUTURE,LIGA CLIP MED [id number] FDA Start: 11-11-2021 Endarterectomy, carotid SUTURE,LIGA CLIP SM LT-100 FDA Start: 11-11-2021 Endarterectomy, carotid SUTURE,LIGA CLIP SM LT-100 FDA Start: 11-11-2021 Endarterectomy, carotid SUTURE,LIGA CLIP SM LT-100 FDA Start: 11-11-2021 Endarterectomy, carotid SUTURE,LIGA CLIP MED [id number] FDA Start: 11-11-2021 Endarterectomy, carotid SUTURE,LIGA CLIP MED [id number] FDA Start: 11-11-2021 Endarterectomy, carotid SUTURE,LIGA CLIP SM LT-100 FDA Start: 11-11-2021 Endarterectomy, carotid SUTURE,LIGA CLIP SM LT-100 FDA Start: 11-11-2021 Endarterectomy, carotid SUTURE,LIGA CLIP SM LT-100 FDA Start: 11-11-2021 Endarterectomy, carotid SUTURE,LIGA CLIP MED LT200 FDA Start: 11-11-2021 Endarterectomy, carotid SUTURE,LIGA CLIP MED LT200 FDA Start: 11-11-2021 Endarterectomy, carotid SUTURE,LIGA CLIP SM LT-100 FDA Start: 11-11-2021 Endarterectomy, carotid SUTURE,LIGA CLIP SM LT-100 FDA Start: 11-11-2021 Endarterectomy, carotid SUTURE,LIGA CLIP SM LT-100 FDA Start: 11-11-2021 Endarterectomy, carotid SUTURE,LIGA CLIP MED LT200 FDA Start: 11-11-2021 Endarterectomy, carotid SUTURE,LIGA CLIP MED LT200 FDA Start: 11-11-2021 Endarterectomy, carotid SUTURE,LIGA CLIP SM LT-100 FDA Start: 11-11-2021 Endarterectomy, carotid SUTURE,LIGA CLIP SM LT-100 FDA Start: 11-11-2021 Endarterectomy, carotid SUTURE,LIGA CLIP SM LT-100 FDA Start: 11-11-2021 Endarterectomy, carotid SUTURE,LIGA CLIP MED LT200 FDA Start: 11-11-2021 Endarterectomy, carotid SUTURE,LIGA CLIP MED LT200 FDA Start: 11-11-2021 Endarterectomy, carotid SUTURE,LIGA CLIP SM LT-100 FDA Start: 11-11-2021 Endarterectomy, carotid SUTURE,LIGA CLIP SM LT-100 FDA Start: 11-11-2021 Endarterectomy, carotid SUTURE,LIGA CLIP SM LT-100 FDA Start: 11-11-2021 Endarterectomy, carotid Collagen haemostatic agent, non-antimicrobial [id number] FDA Start: 11-09-2023 Endarterectomy, carotid Cardiovascular patch, animal-derived ()[id number] FDA Start: 11-09-2023 Endarterectomy, carotid Ligation clip, metallic ()[id number] FDA Start: 11-09-2023 Endarterectomy, carotid Ligation clip, metallic [id number] FDA Start: 11-09-2023 Endarterectomy, carotid SUTURE,LIGA CLIP MED LT200 FDA Start: 11-11-2021 Endarterectomy, carotid SUTURE,LIGA CLIP MED LT200 FDA Start: 11-11-2021 Endarterectomy, carotid SUTURE,LIGA CLIP SM LT-100 FDA Start: 11-11-2021 Endarterectomy, carotid SUTURE,LIGA CLIP SM LT-100 FDA Start: 11-11-2021 Endarterectomy, carotid SUTURE,LIGA CLIP SM LT-100 FDA Start: 11-11-2021 Endarterectomy, carotid SUTURE,LIGA CLIP MED LT200 FDA Start: 08-29-2022 Endarterectomy, carotid SUTURE,LIGA CLIP MED LT200 FDA Start: 11-11-2021 Endarterectomy, carotid SUTURE,LIGA CLIP SM LT-100 FDA Start: 11-11-2021 Endarterectomy, carotid SUTURE,LIGA CLIP SM LT-100 FDA Start: 11-11-2021 Endarterectomy, carotid SUTURE,LIGA CLIP SM LT-100 FDA Start: 11-11-2021 Endarterectomy, carotid SUTURE,LIGA CLIP MED LT200 FDA Start: 11-11-2021 Endarterectomy, carotid SUTURE,LIGA CLIP MED LT200 FDA Start: 11-11-2021 Endarterectomy, carotid SUTURE,LIGA CLIP SM LT-100 FDA Start: 11-11-2021 Endarterectomy, carotid SUTURE,LIGA CLIP SM LT-100 FDA Start: 11-11-2021 Endarterectomy, carotid SUTURE,LIGA CLIP SM LT-100 FDA Start: 11-11-2021 Endarterectomy, carotid SUTURE,LIGA CLIP MED LT200 FDA Start: 11-11-2021 Endarterectomy, carotid SUTURE,LIGA CLIP MED LT200 FDA Start: 11-11-2021 Endarterectomy, carotid SUTURE,LIGA CLIP SM LT-100 FDA Start: 11-11-2021 Endarterectomy, carotid SUTURE,LIGA CLIP SM LT-100 FDA Start: 11-11-2021 Endarterectomy, carotid SUTURE,LIGA CLIP SM LT-100 FDA Start: 11-11-2021 Endarterectomy, carotid SUTURE,LIGA CLIP MED LT200 FDA Start: 11-11-2021 Endarterectomy, carotid SUTURE,LIGA CLIP MED LT200 FDA Start: 11-11-2021 Endarterectomy, carotid SUTURE,LIGA CLIP SM LT-100 FDA Start: 11-11-2021 Endarterectomy, carotid SUTURE,LIGA CLIP SM LT-100 FDA Start: 11-11-2021 Endarterectomy, carotid SUTURE,LIGA CLIP SM LT-100 FDA Start: 11-11-2021 Endarterectomy, carotid SUTURE,LIGA CLIP MED LT200 FDA Start: 11-11-2021 Endarterectomy, carotid SUTURE,LIGA CLIP MED LT200 FDA Start: 11-11-2021 Endarterectomy, carotid SUTURE,LIGA CLIP SM LT-100 FDA Start: 11-11-2021 Endarterectomy, carotid SUTURE,LIGA CLIP SM LT-100 FDA Start: 11-11-2021 Endarterectomy, carotid SUTURE,LIGA CLIP SM LT-100 FDA Start: 11-11-2021 Endarterectomy, carotid SUTURE,LIGA CLIP MED LT200 FDA Start: 11-11-2021 Endarterectomy, carotid SUTURE,LIGA CLIP MED LT200 FDA Start: 11-11-2021 Endarterectomy, carotid SUTURE,LIGA CLIP SM LT-100 FDA Start: 11-11-2021 Endarterectomy, carotid SUTURE,LIGA CLIP SM LT-100 FDA Start: 11-11-2021 Endarterectomy, carotid SUTURE,LIGA CLIP SM LT-100 FDA Start: 11-11-2021 Endarterectomy, carotid SUTURE,LIGA CLIP MED LT200 FDA Start: 11-11-2021 Endarterectomy, carotid SUTURE,LIGA CLIP MED LT200 FDA Start: 11-11-2021 Endarterectomy, carotid SUTURE,LIGA CLIP SM LT-100 FDA Start: 11-11-2021 Endarterectomy, carotid SUTURE,LIGA CLIP SM LT-100 FDA Start: 11-11-2021 Endarterectomy, carotid SUTURE,LIGA CLIP SM LT-100 FDA Start: 11-11-2021 Endarterectomy, carotid SUTURE,LIGA CLIP MED LT200 FDA Start: 11-11-2021 Endarterectomy, carotid SUTURE,LIGA CLIP MED LT200 FDA Start: 11-11-2021 Endarterectomy, carotid SUTURE,LIGA CLIP SM LT-100 FDA Start: 11-11-2021 Endarterectomy, carotid SUTURE,LIGA CLIP SM LT-100 FDA Start: 11-11-2021 Endarterectomy, carotid SUTURE,LIGA CLIP SM LT-100 FDA Start: 11-11-2021 Endarterectomy, carotid SUTURE,LIGA CLIP MED LT200 FDA Start: 11-11-2021 Endarterectomy, carotid SUTURE,LIGA CLIP MED LT200 FDA Start: 11-11-2021 Endarterectomy, carotid SUTURE,LIGA CLIP SM LT-100 FDA Start: 11-11-2021 Endarterectomy, carotid SUTURE,LIGA CLIP SM LT-100 FDA Start: 11-11-2021 Endarterectomy, carotid SUTURE,LIGA CLIP SM LT-100 FDA Start: 11-11-2021 Endarterectomy, carotid SUTURE,LIGA CLIP MED LT200 FDA Start: 11-11-2021 Endarterectomy, carotid SUTURE,LIGA CLIP MED LT200 FDA Start: 11-11-2021 Endarterectomy, carotid SUTURE,LIGA CLIP SM LT-100 FDA Start: 11-11-2021 Endarterectomy, carotid SUTURE,LIGA CLIP SM LT-100 FDA Start: 11-11-2021 Endarterectomy, carotid SUTURE,LIGA CLIP SM LT-100 FDA Start: 11-11-2021 Endarterectomy, carotid SUTURE,LIGA CLIP MED LT200 FDA Start: 11-11-2021 Endarterectomy, carotid SUTURE,LIGA CLIP MED LT200 FDA Start: 11-11-2021 Endarterectomy, carotid SUTURE,LIGA CLIP SM LT-100 FDA Start: 11-11-2021 Endarterectomy, carotid SUTURE,LIGA CLIP SM LT-100 FDA Start: 11-11-2021 Endarterectomy, carotid SUTURE,LIGA CLIP SM LT-100 FDA Start: 11-11-2021 Endarterectomy, carotid SUTURE,LIGA CLIP MED LT200 FDA Start: 11-11-2021 Endarterectomy, carotid SUTURE,LIGA CLIP MED LT200 FDA Start: 11-11-2021 Endarterectomy, carotid SUTURE,LIGA CLIP SM LT-100 FDA Start: 11-11-2021 Endarterectomy, carotid SUTURE,LIGA CLIP SM LT-100 FDA Start: 11-11-2021 Endarterectomy, carotid SUTURE,LIGA CLIP SM LT-100 FDA Start: 11-11-2021 Endarterectomy, carotid SUTURE,LIGA CLIP MED LT200 FDA Start: 11-11-2021 Endarterectomy, carotid SUTURE,LIGA CLIP MED LT200 FDA Start: 11-11-2021 Endarterectomy, carotid SUTURE,LIGA CLIP SM LT-100 FDA Start: 11-11-2021 Endarterectomy, carotid SUTURE,LIGA CLIP SM LT-100 FDA Start: 11-11-2021 Endarterectomy, carotid SUTURE,LIGA CLIP SM LT-100 FDA Start: 11-11-2021 Endarterectomy, carotid SUTURE,LIGA CLIP MED LT200 FDA Start: 11-11-2021 Endarterectomy, carotid SUTURE,LIGA CLIP MED LT200 FDA Start: 11-11-2021 Endarterectomy, carotid SUTURE,LIGA CLIP SM LT-100 FDA Start: 11-11-2021 Endarterectomy, carotid SUTURE,LIGA CLIP SM LT-100 FDA Start: 11-11-2021 Endarterectomy, carotid SUTURE,LIGA CLIP SM LT-100 FDA Start: 11-11-2021 Endarterectomy, carotid SUTURE,LIGA CLIP MED LT200 FDA Start: 11-11-2021 Endarterectomy, carotid SUTURE,LIGA CLIP MED LT200 FDA Start: 11-11-2021 Endarterectomy, carotid SUTURE,LIGA CLIP SM LT-100 FDA Start: 11-11-2021 Endarterectomy, carotid SUTURE,LIGA CLIP SM LT-100 FDA Start: 11-11-2021 Endarterectomy, carotid SUTURE,LIGA CLIP SM LT-100 FDA Start: 11-11-2021 Endarterectomy, carotid SUTURE,LIGA CLIP MED LT200 FDA Start: 11-11-2021 Endarterectomy, carotid SUTURE,LIGA CLIP MED LT200 FDA Start: 11-11-2021 Endarterectomy, carotid SUTURE,LIGA CLIP SM LT-100 FDA Start: 11-11-2021 Endarterectomy, carotid SUTURE,LIGA CLIP SM LT-100 FDA Start: 11-11-2021 Endarterectomy, carotid SUTURE,LIGA CLIP SM LT-100 FDA Start: 11-11-2021 Endarterectomy, carotid SUTURE,LIGA CLIP MED LT200 FDA Start: 11-11-2021 Endarterectomy, carotid SUTURE,LIGA CLIP MED LT200 FDA Start: 11-11-2021 Endarterectomy, carotid SUTURE,LIGA CLIP SM LT-100 FDA Start: 11-11-2021 Endarterectomy, carotid SUTURE,LIGA CLIP SM LT-100 FDA Start: 11-11-2021 Endarterectomy, carotid SUTURE,LIGA CLIP SM LT-100 FDA Start: 11-11-2021 MARKERS, FIDUCIAL GOLD FDA St art: 05-20-2023 [facility] spacer [id number] FDA Start: 05-20-2023 MARKERS, FIDUCIAL GOLD FDA St art: 05-20-2023 MARKERS, FIDUCIAL GOLD FDA St art: 05-20-2023 MARKERS, FIDUCIAL GOLD FDA St art: 05-20-2023 MARKERS, FIDUCIAL GOLD FDA St art: 05-20-2023 MARKERS, FIDUCIAL GOLD FDA St art: 05-20-2023 MARKERS, FIDUCIAL GOLD FDA St art: 05-20-2023 MARKERS, FIDUCIAL GOLD FDA St art: 05-20-2023 MARKERS, FIDUCIAL GOLD FDA St art: 05-20-2023 MARKERS, FIDUCIAL GOLD FDA St art: 05-20-2023 MARKERS, FIDUCIAL GOLD FDA St art: 05-20-2023 MARKERS, FIDUCIAL GOLD FDA St art: 05-20-2023 MARKERS, FIDUCIAL GOLD FDA St art: 05-20-2023 MARKERS, FIDUCIAL GOLD FDA St art: 05-20-2023 MARKERS, FIDUCIAL GOLD FDA St art: 05-20-2023 MARKERS, FIDUCIAL GOLD FDA St art: 05-20-2023 MARKERS, FIDUCIAL GOLD FDA St art: 05-20-2023 MARKERS, FIDUCIAL GOLD FDA St art: 05-20-2023 MARKERS, FIDUCIAL GOLD FDA St art: 05-20-2023 MARKERS, FIDUCIAL GOLD FDA St art: 05-20-2023 MARKERS, FIDUCIAL GOLD FDA St art: 05-20-2023 Lead Durata Df4 Active 58cm - [id number] Start: 12-19-2024 Icd [place] Vr - [id number] - [id number] Start: 12-19-2024 Comment on above: Description: VVI 40 Goals Date Patient Goal Desired Activity /State Personal health goal Functional Status Date Assessment Result Facility 04-13-2024 Functional status Ambulates [facility] Work Phone: 03-22-2022 Functional status Ambulates [facility] Work Phone: 03-22-2022 Functional status None [facility] Work Phone: 11-17-2021 Functional status Bedrest [facility] Work Phone: 11-16-2021 Functional status None [facility] Work Phone: Mental Status Date Assessment Result Facility 04-13-2024 Cognitive function Voice/Name [facility] Work Phone: 05-20-2023 Cognitive function Voice/Name [facility] Work Phone: 03-22-2022 Cognitive function Voice/Name [facility] Work Phone: 11-17-2021 Cognitive function Voice/Name [facility] Work Phone: Clinical Notes 11-06-2020 to 01-11-2025 Lissy España - 01/11/2025 10:00 AM Maylin Troy MD - 01/04/2025 11:00 AM ROSANNA Benson CNP - 12/19/2024 11:59 AM EDTDischarge Instructions Note Date & Type Note Facility 01-11-2025 History of Presen t illness Narrative 01/11/2025 Community Health Worker Patient active with: BPCI RN ROSA Norwood Reason for Call: BPCI outreach Chart review completed. Follow up Appointments 04/13/25 Device Check 08/15/25 Cardiology Placed a phone call no answer, left voice message stating reason for call. Left contact information for call back. Outreach scheduled for BPCI follow up. documented in this encounter [facility] 01-04-2025 History of Presen t illness Narrative [facility] Card[facility]/Electrophysiology Follow Up Clinic Note Chief Complaint: Chief Complaint Patient presents with Coronary Artery Disease Atrial Fibrillation Persistent Hypertension Hyperlipidemia Sleep Apnea Congestive Heart Failure systolic Carotid Artery Disease Hypothyroidism COPD History of Present Illness: Nikko Barajas is a 79 y.o. male referred here in Aug 2024 for management of his AFib. He has known CAD s/p stent to the LAD and Circ in 2010 and repeat PCI to the prox LAD in Mar 2022. In 2021 he had a L CEA and had postop A-fib for which he was on amiodarone. That was stopped at some point b/o abnormal PFTs. His LVEF had been preserved until Sep 2023 by echoes. He felt fine until late 2023 when he noticed more SOB/GARVIN and fatigue. In Mar 2024 he presented to [facility] in A-fib with RVR and a newly depressed LVEF of 25%. He was given metoprolol and amio, but not cardioverted. In May 2024 an echo showed a persistently low LVEF of 30% and in Jun 2024 he had a CVN, but recurred within a few days. He was started on digoxin, and Cardizem 120 mg daily in addition to metoprolol 100 mg twice a day. When I met him, I increased his Cardizem to 180 mg in the hope that his LV dysfunction was related to rapid heart rates and asked the [place] group to get a 24 for-hour Holter and repeat an echo. The 24 hour Holter in September 2024 showed an avg HR of ~85 bpm. An echo in Oct 2024 showed an EF of 35% with a moderately enlarged LA and 1-2+ MR/TR. I recommended implanting a single-chamber ICD. He returns today feeling well. He never felt palpitation with his A-fib, but clearly felt that more SOB/GARVIN in the fall 2023 compared to his baseline. He reports HRs in the 70s to 90s. This is confirmed by his Kardia strips which he does almost every day and all show heart rates less than 100 at rest. He denies chest pain, SOB/GARVIN, or LE edema since starting the Lasix. He is active around the yard and can do all of his ADLs without symptoms. In general he feels very well. An ECG today shows atrial fibrillation with a VR of ~80 bpm, similar to the one in August.. An echo in May 2024 shows an LVEF of 30%, a severely enlarged LA (JOSEPH 75), moderately severe MR (3+), mild TR (PAP of 28 mmHg) and mild to mod AoS. The echo in October 2024 was essentially unchanged. Device interrogation today shows a normal functioning single-chamber [employer] [place] ICD with good pacing and sensing thresholds and with an average heart rate in the 80s. He is V pacing less than 1%. Assessment and Plan: 1. Persistent Atrial Fibrillation: As far as I can tell, he may have gone into persistent A-fib in late 2023. His EF decrease may have been related to rapid rates, however his rates now are well-controlled, and his EF has not improved. Rate control appears like an adequate strategy at this point. Given his severely enlarged LA, the likelihood of maintaining sinus rhythm over the long run would be extremely low, especially since he has a contraindication to amiodarone. His rates are controlled despite stopping the Cardizem on metoprolol and digoxin. He will need to continue with oral anticoagulation indefinitely of course. 2. Chronic systolic Heart Failure: Initially felt to be tachycardia mediated, but his rates have been controlled. He may have an element of ischemic cardiomyopathy. He is now protected by a single-chamber ICD from the risk of sudden . He also needs better medical therapy. He is now on good medical therapy. His BP runs in the low 100s and he has occasional orthostatic dizziness. I would not increase the medications further. 3. CAD: This appears silent. No need for further workup at this point. Today I spoke to him about the fact that he can follow in [place] both for his ischemic cardiomyopathy and for his device care. He prefers that, especially in the winter. I will let Bud Saez know to set him up in their device clinic in [place]. I will see him here once next spring at his request, but after that I think he can follow in [place] unless there are problems. Past Medical History: Medical History[1] Past Surgical History Surgical History[2] Family History Family History[3] Social History Social History[4] Medications: Reviewed Allergies: Reviewed Review of Systems: All other systems were reviewed and are negative other than as noted in the HPI. Physical Examination: Vitals: Blood pressure 96/52, pulse 90, height 5' 9 (1.753 m), weight 156 lb (70.8 kg), SpO2 98%. Constitutional: Appears well kept and looks stated age; in NAD Psychiatric: A &O x3 Mood is pleasant; Affect is appropriate Musculoskeletal: Normocephalic; no joint swelling; gait steady; 5/5 muscle strength bilaterally in upper and lower extremities; no clubbing or cyanosis HEENT: Pupils are equal and round; Conjunctiva are not injected; Sclera are non-icteric; Airway and Nares are patent; Ears without external abnormalities. Mucosa is pink; Dentition is normal Neck: Supple; No JVD or Bruits; No thyromegaly; No lymphadenopathy Chest: His subclavicular wound is well-healed, without hematoma, redness, warmth, or drainage Respiratory: Lungs are clear with no rales or wheezes. Respiratory effort is normal and symmetrical bilaterally; Good air movement bilaterally Heart: IRRR; Nl S1 and S2 2/6 aortic systolic murmur. 2/6 mitral regurgitation murmur. No crg Abdomen: NABS soft, non-tender, non-distended; no organomegaly; no obvious masses Extremities/Skin: Trace LE edema; Skin warm to touch and well perfused; skin discoloration is absent Neuro: sensation and motor function are grossly normal. Cranial Nerves are grossly intact Laboratory Tests: Lab Results Component Value Date WBC 9.3 12/19/2024 WBC 8.4 11/15/2024 HGB 12.3 (L) 12/19/2024 HGB 12.5 (L) 11/15/2024 HCT 35.5 (L) 12/19/2024 HCT 37.7 (L) 11/15/2024 MCV 93.7 12/19/2024 MCV 97.7 11/15/2024 PLT 177 12/19/2024 PLT 214 11/15/2024 Lab Results Component Value Date NA 139 12/19/2024 K 4.2 12/19/2024 CL 105 12/19/2024 CO2 22 (L) 12/19/2024 CO2 27 11/15/2024 BUN 31 (H) 12/19/2024 BUN 26 (H) 11/15/2024 CREATININE 0.99 12/19/2024 CREATININE 0.70 11/15/2024 Ronnie Troy MD DATE of SERVICE: 01/04/2025 [1] Past Medical History: Diagnosis Date Acquired hypothyroidism 08/02/2024 Bilateral carotid artery stenosis 08/02/2024 Centrilobular emphysema (HCC) 08/02/2024 Claudication of both lower extremities 08/02/2024 Coronary artery disease involving kake coronary artery of kake heart without angina pectoris 08/02/2024 Essential hypertension 08/02/2024 Mixed hyperlipidemia 08/02/2024 ORACIO on CPAP 08/02/2024 Paroxysmal atrial fibrillation (HCC) 08/02/2024 Prostate cancer (HCC) 08/02/2024 Systolic congestive heart failure with reduced left ventricular function, NYHA class 2 ([facility]) 08/02/2024 [2] Past Surgical History: Procedure Laterality Date CARDIAC ELECTROPHYSIOLOGY PROCEDURE N/A 12/19/2024 Performed by Ulises Perdomo MD at [facility] Cardiac Cath/EP Lab CAROTID ENDARTERECTOMY Left 2021 CAROTID ENDARTERECTOMY Right 2023 CIRCUMCISION (HISTORICAL) CORONARY ANGIOPLASTY WITH STENT PLACEMENT 03/21/2022 HERNIA REPAIR KNEE ARTHROPLASTY Left PROSTATE BIOPSY 03/23/2023 PTCA W/ STENT, INITIAL (HISTORICAL) 01/22/2011 TONSILLECTOMY [3] Family History Problem Relation Name Age of Onset Coronary artery disease Mother Stroke Father Cancer Brother [4] Social History Tobacco Use Smoking status: Former Types: Cigarettes Smokeless tobacco: Never Vaping Use Vaping status: Never Used Substance Use Topics Alcohol use: Never Drug use: Never documented in this encounter [facility] 01-03-2025 Note Late Drop- Patient o n BPCI Advanced: OP Patients Qualify for Cardiac Care and Cardiac Procedures from [facility] report 01/03/25. EMR reviewed. Patient enrolled in [facility]iac 90-day BPCI Program post-hospital outpatient procedure 03/18/24 Dx: ICD. 14-day BPCI outreach made to patient. No answer. Left voicemail with name, role and callback number. 21-Day BPCI outreach scheduled. [facility] 12-19-2024 History of Presen t illness Narrative Post ICD instructions reviewed with patient and family. Site is without edema or ecchymosis. Ice has been applied. Chest x-ray reveals good lead placement and no pneumothorax. Booklet was given to patient's follow-up has been made. I reinforced that he should not resume his Eliquis until Thursday morning. He can be discharged at 1PM. documented in this encounter [facility] 12-19-2024 Note Patient: Nikko Barajas Procedure Summary Date: 12/19/24 Room / Location: [facility] EP LAB 1 / [facility] Cardiac Cath Labs Anesthesia Start: 749 Anesthesia Stop: 857 Procedure: Implant ICD Diagnosis: Chronic systolic heart failure (HCC) (Same) Providers: Ulises Perdomo MD Responsible Provider: Kashmir Patino MD Anesthesia Type: MAC, TIVA ASA Status: 3 Anesthesia Type: MAC, TIVA Vitals Value Taken Time BP 101/65 12/19/24 08:59 Temp 36.1 ?C (97 ?F) 12/19/24 08:59 Pulse 80 12/19/24 08:59 Resp 15 12/19/24 08:59 SpO2 100 % 12/19/24 08:59 Anesthesia Post Evaluation Patient location during evaluation: PACU Patient participation: complete - patient participated Level of consciousness: alert and awake Pain management: satisfactory to patient Airway patency: patent Dental Injury: no Cardiovascular status: acceptable, blood pressure returned to baseline and hemodynamically stable Respiratory status: acceptable and spontaneous ventilation Hydration status: euvolemic Nausea/Vomiting: controlled No notable events documented. Patient can be discharged once all PACU criteria has been met. [facility] 12-19-2024 Note Patient: Nikko Barajas Procedure Summary Date: 12/19/24 Room / Location: [facility] EP LAB 1 / [facility] Cardiac Cath Labs Anesthesia Start: 749 Anesthesia Stop: 857 Procedure: Implant ICD Diagnosis: Chronic systolic heart failure (HCC) (Same) Providers: Ulises Perdomo MD Responsible Provider: Kashmir Patino MD Anesthesia Type: MAC, TIVA ASA Status: 3 Anesthesia Type: MAC, TIVA Vitals Value Taken Time BP 101/65 12/19/24 08:59 Temp 36.1 ?C (97 ?F) 12/19/24 08:59 Pulse 80 12/19/24 08:59 Resp 15 12/19/24 08:59 SpO2 100 % 12/19/24 08:59 Anesthesia Post Evaluation Patient participation: complete - patient participated Level of consciousness: alert and awake Pain management: satisfactory to patient Multimodal analgesia pain management approach Airway patency: patent Two or more strategies used to mitigate risk of obstructive sleep apnea Respiratory status: acceptable Cardiovascular status: acceptable Hydration status: acceptable No notable events documented. MIPS #[id number] PONV Patient did not receive an inhalational anesthetic (XX430) MIPS # 424 Perioperative Temperature Management Anesthesia time was 60 minutes or longer (4255F) Anesthesai administered was not General (inhalational or TIVA) or Neuraxial block Patient received MAC (G9654) At least one body temperature greater than 95.8F/35.5C achieved within the 30 mins immediately prior to or the 15 minutes immediately following anesthesia end time (G9771) MIPS #477 Multimodal Pain Management Not emergent case Patient was administered multimodal pain management (two or more drugs and/or interventions excluding systemic opioids) in the periopeartive period occurring at some time between 6 hours prior to anesthesia start time until discharged from PACU (G2148) MIPS #404 Anesthesiology Smoking Abstinence The patient is not a current smoker (e.g. cigarette, cigar, pipe, e-cigarette/vaping/marijuana) If no stop here (XX404) I completed my handoff to the receiving clinician during which we: 1. Identified the patient 2. Identified the responsible provider 3. Reviewed the pertinent medical history 4. Discussed the surgical course 5. Reviewed intra-op anesthesia management and issues during anesthesia 6. Set expectations for post-procedure period 7. Allowed opportunity for questions and acknowledgement of understanding. [facility] 12-19-2024 Hospital Discharg e instructions Shazia Mathias APRN - [employer] - 12/19/2024 8:06 AM EDT Internal Cardioverter Defibrillator Discharge Instructions Please resume your Eliquis on Thu Incision Care: Keep original bandage on for 5 days. Remove it on __12/24/24 . Then, leave incision open to air. Do not remove steri-strips (tape) from incision line if present. Do not put any creams, powders, or ointments on incision. Allow steri-strips to fall off naturally. If still on 10 days post-op, may remove. If you have a pressure dressing (oshea colored, elastic tape covering your shoulder), remove this the morning after your procedure. Pull the tape off slowly to avoid skin tears. There will be another dressing underneath. Leave this one on for 5 days. You may take a sponge bath up until __12/20/24 , then you may shower. No swimming or tub bathing for 6 weeks. Observe area for redness, swelling, or drainage. If these symptoms occur, notify the device clinic immediately: . Some bruising can be expected. If the area around your incision becomes painful to touch after early soreness has gone away, or if you experience fever or chills, notify the device clinic immediately. For bleeding that does not stop or increased swelling, come to the Emergency Department. Sedation: If you have received sedation, you must have someone drive you home. You should not drive a car, operate machinery, drink alcohol, or perform any activity that requires alertness for the rest of the day. The effects of the sedative should resolve by tomorrow. Activity: Keep affected arm below shoulder level for 4 weeks. Do not raise affected arm over your head. No lifting more than 10 pounds with your affected arm for 4 weeks (a gallon of milk weighs 8 pounds). Limit pushing/pulling with affected arm. No driving for __7__ days. Avoid strong magnetic macdonald such as power plants, arc welding, and large magnets. You may resume sexual activity in 3 weeks. General Instructions: Call your doctor if you experience chest pain, shortness of breath, dizziness, fainting spells, swelling in the ankles, or prolonged hiccoughing. Carry your ID card with you at all times. Refer to your information booklet for additional information It is recommended that all family members be certified in CPR. Call the Device Clinic at [phone] if you have any questions regarding your incision, defibrillator, or follow-up appointments. Call the Device Clinic at [phone] if you have signs of a rapid heart rhythm, if you hear a beeping tone or vibration from your defibrillator. Call the Device Clinic at [phone] or your physician if you experience a shock. Be calm and lie down if you are alone. If you feel as though you are going to pass out call [phone]. If someone is touching you when a shock is delivered, they will not be harmed but may experience a sensation similar to a bee sting. documented in this encounter [facility] 12-19-2024 Attending History and physical note H&P reviewed. The patient was examined and there are no changes to the H&P. Source Note - ROSANNA Richards CNP - 12/12/2024 12:22 PM EDT Images from the original note were not included. Office Visit 11/15/2024 [facility] Cardiology [facility] Ronnie Troy MD Cardiology Systolic congestive heart failure with reduced left ventricular function, NYHA class 2 (HCC) +11 more Dx 3 Month Follow Up Reason for Visit Progress Notes Ronnie Troy MD (Physician) Cardiology [facility] [place] Cardiology/Electrophysiology Follow Up Clinic Note Chief Complaint: Chief Complaint Patient presents with 3 Month Follow Up History of Present Illness: Nikko Barajas is a 79 y.o. male referred here in Aug 2024 for management of his AFib. He has known CAD s/p stent to the LAD and Circ in 2010 and repeat PCI to the prox LAD in Mar 2022. In 2021 he had a L CEA and had postop A-fib for which he was on amiodarone which was stopped at some point b/o abnormal PFTs. His LVEF had been preserved until Sep 2023 by echoes. He felt fine until late 2023 when he noticed more SOB/GARVIN and fatigue. In Mar 2024 he presented to [facility] in A-fib with RVR and a newly depressed LVEF of 25%. He was given metoprolol and amio, but not cardioverted. In May 2024 an echo showed a persistently low LVEF of 30% and he he had a CVN in Jun 2024, but recurred within a few days. He was started on digoxin, and Cardizem 120 mg daily in addition to metoprolol 100 mg twice a day. When I met him, I increased his Cardizem to 180 mg in the hope that his LV dysfunction was related to rapid heart rates and asked the [facility] to get a 24 for-hour Holter and repeat an echo. He returns today feeling well. He never felt palpitation with his A-fib, but clearly felt that more SOB/GARVIN in the fall 2023 compared to his baseline. He reports HRs in the 70s to 90s. This is confirmed by his Kardia strips which he does almost every day and all show heart rates less than 100 at rest. He denies chest pain, SOB/GARVIN, or LE edema since starting the Lasix. He is active around the yard and can do all of his ADLs without symptoms An ECG today shows atrial fibrillation with a VR of ~80 bpm, similar to the one in August.. An echo in May 2024 shows an LVEF of 30%, a severely enlarged LA (JOSEPH 75), moderately severe MR (3+), mild TR (PAP of 28 mmHg) and mild to mod AoS. A 24-hour Holter in September 2024 showed an average heart rate of 85 bpm. A repeat echo in Oct 2024 shows an LVEF of 35% with a moderately enlarged LA and 1-2+ MR/TR. Assessment and Plan: 1. Persistent Atrial Fibrillation: As far as I can tell, he may have gone into persistent A-fib in late 2023. His EF decrease may have been related to rapid rates, however his rates now are well-controlled, yet his EF has not improved. We need to treat his cardiomyopathy (see below). As far as rhythm vs rate control, he is currently asymptomatic. Given his severely enlarged LA, the likelihood of maintaining sinus rhythm is extremely low, especially since he has a contraindication to amiodarone. Given his persistent LV dysfunction, we need to stop the Cardizem. We we will have to follow his rates carefully. I will see him in November after those tests are done in [place] [facility]. Chronic systolic Heart Failure: Initially felt to be tachycardia mediated, but his rates have been controlled. He may have an element of ischemic cardiomyopathy. Today I spoke to him and his at length about the risk of sudden and the need for an ICD. I would implant a single-chamber ICD. This will allow us to monitor his heart rates in A-fib as well. He also needs better medical therapy. I will start him on Aldactone and Farxiga and increase his lisinopril to 10 mg daily. 3. CAD: This appears silent. No need for further workup at this point. Past Medical History: [Medical History] [Medical History] Past Medical History Diagnosis Date Acquired hypothyroidism 08/02/2024 Bilateral carotid artery stenosis 08/02/2024 Centrilobular emphysema (HCC) 08/02/2024 Claudication of both lower extremities (HCC) 08/02/2024 Coronary artery disease involving kake coronary artery of kake heart without angina pectoris 08/02/2024 Essential hypertension 08/02/2024 Mixed hyperlipidemia 08/02/2024 ORACIO on CPAP 08/02/2024 Paroxysmal atrial fibrillation (HCC) 08/02/2024 Prostate cancer (HCC) 08/02/2024 Systolic congestive heart failure with reduced left ventricular function, NYHA class 2 (HCC) 08/02/2024 Past Surgical History [Surgical History] [Surgical History] Past Surgical History Procedure Laterality Date CAROTID ENDARTERECTOMY Left 2021 CAROTID ENDARTERECTOMY Right 2023 CIRCUMCISION (HISTORICAL) CORONARY ANGIOPLASTY WITH STENT PLACEMENT 03/21/2022 HERNIA REPAIR KNEE ARTHROPLASTY Left PROSTATE BIOPSY 03/23/2023 PTCA W/ STENT, INITIAL (HISTORICAL) 01/22/2011 TONSILLECTOMY Family History [Family History] [Family History] Problem Relation Name Age of Onset Coronary artery disease Mother Stroke Father Cancer Brother Social History [Social History] [Social History] Tobacco Use Smoking status: Former Types: Cigarettes Smokeless tobacco: Never Vaping Use Vaping status: Never Used Substance Use Topics Alcohol use: Never Drug use: Never Medications: Reviewed Allergies: Reviewed Review of Systems: All other systems were reviewed and are negative other than as noted in the HPI. Physical Examination: Vitals: Blood pressure 124/66, pulse 82, height 5' 9 (1.753 m), weight 164 lb 6.4 oz (74.6 kg), SpO2 96%. Constitutional: Appears well kept and looks stated age; in NAD Psychiatric: A &O x3 Mood is pleasant; Affect is appropriate Musculoskeletal: Normocephalic; no joint swelling; gait steady; 5/5 muscle strength bilaterally in upper and lower extremities; no clubbing or cyanosis HEENT: Pupils are equal and round; Conjunctiva are not injected; Sclera are non-icteric; Airway and Nares are patent; Ears without external abnormalities. Mucosa is pink; Dentition is normal Neck: Supple; No JVD or Bruits; No thyromegaly; No lymphadenopathy Respiratory: Lungs are clear with no rales or wheezes. Respiratory effort is normal and symmetrical bilaterally; Good air movement bilaterally Heart: IRRR; Nl S1 and S2 2/6 aortic systolic murmur. 2/6 mitral regurgitation murmur. No crg Abdomen: NABS soft, non-tender, non-distended; no organomegaly; no obvious masses Extremities/Skin: Trace LE edema; Skin warm to touch and well perfused; skin discoloration is absent Neuro: sensation and motor function are grossly normal. Cranial Nerves are grossly intact Laboratory Tests: Reviewed Ronnie Troy MD DATE of SERVICE: 11/15/2024 H+ P copied to chart fromRonnie Troy progress note dated 11/15/24 on behalf of Ulises Perdomo MD I have examined the patient on admission and confirm that the necessity for the procedure is still present . The patient's condition has not changed since the History & Physical was originally completed. Ulises Perdomo MD 12/19/2024 [facility] Work Phone: 12-19-2024 Note H&P reviewed. The dayanara up was examined and there are no changes to the H&P. [facility] 12-19-2024 History and physical note H&P reviewed. The patient was examined and there are no changes to the H&P. Source Note - ROSANNA Richards CNP - 12/12/2024 12:22 PM EDT Images from the original note were not included. Office Visit 11/15/2024 [facility] Cardiology - Daviscandace Troy MD Cardiology Systolic congestive heart failure with reduced left ventricular function, NYHA class 2 (HCC) +11 more Dx 3 Month Follow Up Reason for Visit Progress Notes Ronnie Troy MD (Physician) Cardiology [facility] [place] Cardiology/Electrophysiology Follow Up Clinic Note Chief Complaint: Chief Complaint Patient presents with 3 Month Follow Up History of Present Illness: Nikko Barajas is a 79 y.o. male referred here in Aug 2024 for management of his AFib. He has known CAD s/p stent to the LAD and Circ in 2010 and repeat PCI to the prox LAD in Mar 2022. In 2021 he had a L CEA and had postop A-fib for which he was on amiodarone which was stopped at some point b/o abnormal PFTs. His LVEF had been preserved until Sep 2023 by echoes. He felt fine until late 2023 when he noticed more SOB/GARVIN and fatigue. In Mar 2024 he [facility] R[facility] and a newly depressed LVEF of 25%. He was given metoprolol and amio, but not cardioverted. In May 2024 an echo showed a persistently low LVEF of 30% and he he had a CVN in Jun 2024, but recurred within a few days. He was started on digoxin, and Cardizem 120 mg daily in addition to metoprolol 100 mg twice a day. When I met him, I increased his Cardizem to 180 mg in the hope that his LV dysfunction was related to rapid heart rates and asked the [facility] to get a 24 for-hour Holter and repeat an echo. He returns today feeling well. He never felt palpitation with his A-fib, but clearly felt that more SOB/GARVIN in the fall 2023 compared to his baseline. He reports HRs in the 70s to 90s. This is confirmed by his Kardia strips which he does almost every day and all show heart rates less than 100 at rest. He denies chest pain, SOB/GARVIN, or LE edema since starting the Lasix. He is active around the yard and can do all of his ADLs without symptoms An ECG today shows atrial fibrillation with a VR of ~80 bpm, similar to the one in August.. An echo in May 2024 shows an LVEF of 30%, a severely enlarged LA (JOSEPH 75), moderately severe MR (3+), mild TR (PAP of 28 mmHg) and mild to mod AoS. A 24-hour Holter in September 2024 showed an average heart rate of 85 bpm. A repeat echo in Oct 2024 shows an LVEF of 35% with a moderately enlarged LA and 1-2+ MR/TR. Assessment and Plan: 1. Persistent Atrial Fibrillation: As far as I can tell, he may have gone into persistent A-fib in late 2023. His EF decrease may have been related to rapid rates, however his rates now are well-controlled, yet his EF has not improved. We need to treat his cardiomyopathy (see below). As far as rhythm vs rate control, he is currently asymptomatic. Given his severely enlarged LA, the likelihood of maintaining sinus rhythm is extremely low, especially since he has a contraindication to amiodarone. Given his persistent LV dysfunction, we need to stop the Cardizem. We we will have to follow his rates carefully. I will see him in November after those tests are done in [place] [facility]. Chronic systolic Heart Failure: Initially felt to be tachycardia mediated, but his rates have been controlled. He may have an element of ischemic cardiomyopathy. Today I spoke to him and his at length about the risk of sudden and the need for an ICD. I would implant a single-chamber ICD. This will allow us to monitor his heart rates in A-fib as well. He also needs better medical therapy. I will start him on Aldactone and Farxiga and increase his lisinopril to 10 mg daily. 3. CAD: This appears silent. No need for further workup at this point. Past Medical History: [Medical History] [Medical History] Past Medical History Diagnosis Date Acquired hypothyroidism 08/02/2024 Bilateral carotid artery stenosis 08/02/2024 Centrilobular emphysema (HCC) 08/02/2024 Claudication of both lower extremities ([facility]) 08/02/2024 Coronary artery disease involving kake coronary artery of kake heart without angina pectoris 08/02/2024 Essential hypertension 08/02/2024 Mixed hyperlipidemia 08/02/2024 ORACIO on CPAP 08/02/2024 Paroxysmal atrial fibrillation (HCC) 08/02/2024 Prostate cancer ([facility]) 08/02/2024 Systolic congestive heart failure with reduced left ventricular function, NYHA class 2 ([facility]) 08/02/2024 Past Surgical History [Surgical History] [Surgical History] Past Surgical History Procedure Laterality Date CAROTID ENDARTERECTOMY Left 2021 CAROTID ENDARTERECTOMY Right 2023 CIRCUMCISION (HISTORICAL) CORONARY ANGIOPLASTY WITH STENT PLACEMENT 03/21/2022 HERNIA REPAIR KNEE ARTHROPLASTY Left PROSTATE BIOPSY 03/23/2023 PTCA W/ STENT, INITIAL (HISTORICAL) 01/22/2011 TONSILLECTOMY Family History [Family History] [Family History] Problem Relation Name Age of Onset Coronary artery disease Mother Stroke Father Cancer Brother Social History [Social History] [Social History] Tobacco Use Smoking status: Former Types: Cigarettes Smokeless tobacco: Never Vaping Use Vaping status: Never Used Substance Use Topics Alcohol use: Never Drug use: Never Medications: Reviewed Allergies: Reviewed Review of Systems: All other systems were reviewed and are negative other than as noted in the HPI. Physical Examination: Vitals: Blood pressure 124/66, pulse 82, height 5' 9 (1.753 m), weight 164 lb 6.4 oz (74.6 kg), SpO2 96%. Constitutional: Appears well kept and looks stated age; in NAD Psychiatric: A &O x3 Mood is pleasant; Affect is appropriate Musculoskeletal: Normocephalic; no joint swelling; gait steady; 5/5 muscle strength bilaterally in upper and lower extremities; no clubbing or cyanosis HEENT: Pupils are equal and round; Conjunctiva are not injected; Sclera are non-icteric; Airway and Nares are patent; Ears without external abnormalities. Mucosa is pink; Dentition is normal Neck: Supple; No JVD or Bruits; No thyromegaly; No lymphadenopathy Respiratory: Lungs are clear with no rales or wheezes. Respiratory effort is normal and symmetrical bilaterally; Good air movement bilaterally Heart: IRRR; Nl S1 and S2 2/6 aortic systolic murmur. 2/6 mitral regurgitation murmur. No crg Abdomen: NABS soft, non-tender, non-distended; no organomegaly; no obvious masses Extremities/Skin: Trace LE edema; Skin warm to touch and well perfused; skin discoloration is absent Neuro: sensation and motor function are grossly normal. Cranial Nerves are grossly intact Laboratory Tests: Reviewed Ronnie Troy MD DATE of SERVICE: 11/15/2024 H+ P copied to chart fromRonnie Troy progress note dated 11/15/24 on behalf of Ulises Perdomo MD I have examined the patient on admission and confirm that the necessity for the procedure is still present . The patient's condition has not changed since the History & Physical was originally completed. Ulises Perdomo MD 12/19/2024 documented in this encounter [facility] 12-19-2024 Note Patient: Nikko Barajas Procedure Information Date/Time: 12/19/24729 Procedure: Implant ICD Location: [facility] EP [facility] / [facility] Cardiac Cath Labs Providers: Ulises Perdomo MD Relevant Problems Anesthesia (+) ORACIO on CPAP Cardio (+) Bilateral carotid artery stenosis (+) Coronary artery disease involving kake coronary artery of kake heart without angina pectoris (+) Essential hypertension (+) Mixed hyperlipidemia (+) Paroxysmal atrial fibrillation (HCC) (+) Systolic congestive heart failure with reduced left ventricular function, NYHA class 2 (HCC) Endo (+) Acquired hypothyroidism Pulmonary (+) Centrilobular emphysema (HCC) (+) ORACIO on CPAP Cardiovascular (+) Bilateral carotid artery stenosis Other (+) Prostate cancer (HCC) Past Medical History: Past Medical History: 08/02/2024: Acquired hypothyroidism 08/02/2024: Bilateral carotid artery stenosis 08/02/2024: Centrilobular emphysema (HCC) 08/02/2024: Claudication of both lower extremities 08/02/2024: Coronary artery disease involving kake coronary artery of kake heart without angina pectoris 08/02/2024: Essential hypertension 08/02/2024: Mixed hyperlipidemia 08/02/2024: ORACIO on CPAP 08/02/2024: Paroxysmal atrial fibrillation (HCC) 08/02/2024: Prostate cancer (HCC) 08/02/2024: Systolic congestive heart failure with reduced left ventricular function, NYHA class 2 (HCC) Past Surgical History: Past Surgical History: 2021: CAROTID ENDARTERECTOMY; Left 2023: CAROTID ENDARTERECTOMY; Right No date: CIRCUMCISION (HISTORICAL) 03/21/2022: CORONARY ANGIOPLASTY WITH STENT PLACEMENT No date: HERNIA REPAIR No date: KNEE ARTHROPLASTY; Left 03/23/2023: PROSTATE BIOPSY 01/22/2011: PTCA W/ STENT, INITIAL (HISTORICAL) No date: TONSILLECTOMY Social History: TOBACCO: reports that he has quit smoking. His smoking use included cigarettes. He has never used smokeless tobacco. ETOH: reports no history of alcohol use. Social History Substance and Sexual Activity Drug Use Never Family History: Family History[1] Screening: unknown Clinical information reviewed: Allergies Meds Physical Exam Airway Mallampati: II TM distance: >3 FB Neck ROM: full Mouth Open: normalendotracheal tube not in place Cardiovascular Dental (+) Upper Dentures, Lower Dentures Comments: Unable to remove. Pt. Aware of risks Pulmonary Abdominal Anesthesia Plan Any family history or previous problems with anesthesia no We discussed risks, benefits, alternatives and likelihood of success with the Patient. ASA 3 MAC and TIVA Any family history or previous problems with anesthesia noUse of blood products discussed with who consented to blood products. The patient is not a current smoker. patient is NPO appropriate ORACIO Screening Labs: Lab Results Component Value Date WBC 8.4 11/15/2024 HGB 12.5 (L) 11/15/2024 HCT 37.7 (L) 11/15/2024 MCV 97.7 11/15/2024 PLT 214 11/15/2024 Lab Results Component Value Date SODIUM 142 11/15/2024 POTASSIUM 4.5 11/15/2024 CHLORIDE 105 11/15/2024 CO2 27 11/15/2024 BUN 26 (H) 11/15/2024 CREATININE 0.70 11/15/2024 GLUCOSE 116 (H) 11/15/2024 CALCIUM 9.7 11/15/2024 EGFR 95 11/15/2024 No echocardiogram results found for the past 14 days 12/19/24 ECG 12-LEAD (Preliminary) This result has not been signed. Information might be incomplete. Impression Atrial fibrillation Inferior infarct, old ST depr, consider ischemia, anterolateral lds Equipment Requests: Additional Equipment Requests [1] Family History Problem Relation Name Age of Onset ? Coronary artery disease Mother ? Stroke Father ? Cancer Brother [facility] 12-12-2024 History and physical note Images from the original note were not included. Office Visit 11/15/2024 [facility] Cardiology [facility] Ronnie Troy MD Cardiology Systolic congestive heart failure with reduced left ventricular function, NYHA class 2 (HCC) +11 more Dx 3 Month Follow Up Reason for Visit Progress Notes Ronnie Troy MD (Physician) Cardiology [facility] [place] Cardiology/Electrophysiology Follow Up Clinic Note Chief Complaint: Chief Complaint Patient presents with 3 Month Follow Up History of Present Illness: Nikko Barajas is a 79 y.o. male referred here in Aug 2024 for management of his AFib. He has known CAD s/p stent to the LAD and Circ in 2010 and repeat PCI to the prox LAD in Mar 2022. In 2021 he had a L CEA and had postop A-fib for which he was on amiodarone which was stopped at some point b/o abnormal PFTs. His LVEF had been preserved until Sep 2023 by echoes. He felt fine until late 2023 when he noticed more SOB/GARVIN and fatigue. In Mar 2024 he presented to [facility] with RVR and a newly depressed LVEF of 25%. He was given metoprolol and amio, but not cardioverted. In May 2024 an echo showed a persistently low LVEF of 30% and he he had a CVN in Jun 2024, but recurred within a few days. He was started on digoxin, and Cardizem 120 mg daily in addition to metoprolol 100 mg twice a day. When I met him, I increased his Cardizem to 180 mg in the hope that his LV dysfunction was related to rapid heart rates and asked the [facility] to get a 24 for-hour Holter and repeat an echo. He returns today feeling well. He never felt palpitation with his A-fib, but clearly felt that more SOB/GARVIN in the fall 2023 compared to his baseline. He reports HRs in the 70s to 90s. This is confirmed by his Kardia strips which he does almost every day and all show heart rates less than 100 at rest. He denies chest pain, SOB/GARVIN, or LE edema since starting the Lasix. He is active around the yard and can do all of his ADLs without symptoms An ECG today shows atrial fibrillation with a VR of ~80 bpm, similar to the one in August.. An echo in May 2024 shows an LVEF of 30%, a severely enlarged LA (JOSEPH 75), moderately severe MR (3+), mild TR (PAP of 28 mmHg) and mild to mod AoS. A 24-hour Holter in September 2024 showed an average heart rate of 85 bpm. A repeat echo in Oct 2024 shows an LVEF of 35% with a moderately enlarged LA and 1-2+ MR/TR. Assessment and Plan: 1. Persistent Atrial Fibrillation: As far as I can tell, he may have gone into persistent A-fib in late 2023. His EF decrease may have been related to rapid rates, however his rates now are well-controlled, yet his EF has not improved. We need to treat his cardiomyopathy (see below). As far as rhythm vs rate control, he is currently asymptomatic. Given his severely enlarged LA, the likelihood of maintaining sinus rhythm is extremely low, especially since he has a contraindication to amiodarone. Given his persistent LV dysfunction, we need to stop the Cardizem. We we will have to follow his rates carefully. I will see him in November after those tests are done in [place] [facility]. Chronic systolic Heart Failure: Initially felt to be tachycardia mediated, but his rates have been controlled. He may have an element of ischemic cardiomyopathy. Today I spoke to him and his at length about the risk of sudden and the need for an ICD. I would implant a single-chamber ICD. This will allow us to monitor his heart rates in A-fib as well. He also needs better medical therapy. I will start him on Aldactone and Farxiga and increase his lisinopril to 10 mg daily. 3. CAD: This appears silent. No need for further workup at this point. Past Medical History: [Medical History] [Medical History] Past Medical History Diagnosis Date Acquired hypothyroidism 08/02/2024 Bilateral carotid artery stenosis 08/02/2024 Centrilobular emphysema (HCC) 08/02/2024 Claudication of both lower extremities (HCC) 08/02/2024 Coronary artery disease involving kake coronary artery of kake heart without angina pectoris 08/02/2024 Essential hypertension 08/02/2024 Mixed hyperlipidemia 08/02/2024 ORACIO on CPAP 08/02/2024 Paroxysmal atrial fibrillation (HCC) 08/02/2024 Prostate cancer (HCC) 08/02/2024 Systolic congestive heart failure with reduced left ventricular function, NYHA class 2 ([facility]) 08/02/2024 Past Surgical History [Surgical History] [Surgical History] Past Surgical History Procedure Laterality Date CAROTID ENDARTERECTOMY Left 2021 CAROTID ENDARTERECTOMY Right 2023 CIRCUMCISION (HISTORICAL) CORONARY ANGIOPLASTY WITH STENT PLACEMENT 03/21/2022 HERNIA REPAIR KNEE ARTHROPLASTY Left PROSTATE BIOPSY 03/23/2023 PTCA W/ STENT, INITIAL (HISTORICAL) 01/22/2011 TONSILLECTOMY Family History [Family History] [Family History] Problem Relation Name Age of Onset Coronary artery disease Mother Stroke Father Cancer Brother Social History [Social History] [Social History] Tobacco Use Smoking status: Former Types: Cigarettes Smokeless tobacco: Never Vaping Use Vaping status: Never Used Substance Use Topics Alcohol use: Never Drug use: Never Medications: Reviewed Allergies: Reviewed Review of Systems: All other systems were reviewed and are negative other than as noted in the HPI. Physical Examination: Vitals: Blood pressure 124/66, pulse 82, height 5' 9 (1.753 m), weight 164 lb 6.4 oz (74.6 kg), SpO2 96%. Constitutional: Appears well kept and looks stated age; in NAD Psychiatric: A &O x3 Mood is pleasant; Affect is appropriate Musculoskeletal: Normocephalic; no joint swelling; gait steady; 5/5 muscle strength bilaterally in upper and lower extremities; no clubbing or cyanosis HEENT: Pupils are equal and round; Conjunctiva are not injected; Sclera are non-icteric; Airway and Nares are patent; Ears without external abnormalities. Mucosa is pink; Dentition is normal Neck: Supple; No JVD or Bruits; No thyromegaly; No lymphadenopathy Respiratory: Lungs are clear with no rales or wheezes. Respiratory effort is normal and symmetrical bilaterally; Good air movement bilaterally Heart: IRRR; Nl S1 and S2 2/6 aortic systolic murmur. 2/6 mitral regurgitation murmur. No crg Abdomen: NABS soft, non-tender, non-distended; no organomegaly; no obvious masses Extremities/Skin: Trace LE edema; Skin warm to touch and well perfused; skin discoloration is absent Neuro: sensation and motor function are grossly normal. Cranial Nerves are grossly intact Laboratory Tests: Reviewed Ronnie Troy MD DATE of SERVICE: 11/15/2024 H+ P copied to chart fromRonnie Troy progress note dated 11/15/24 on behalf of Ulises Perdomo MD I have examined the patient on admission and confirm that the necessity for the procedure is still present . The patient's condition has not changed since the History & Physical was originally completed. Ulises Perdomo MD 12/19/2024 [facility] 12-12-2024 History and physical note Images from the original note were not included. Office Visit 11/15/2024 [facility] Cardiology - [place] Ronnie Troy MD Cardiology Systolic congestive heart failure with reduced left ventricular function, NYHA class 2 (HCC) +11 more Dx 3 Month Follow Up Reason for Visit Progress Notes Ronnie Troy MD (Physician) Cardiology [facility] [place] Cardiology/Electrophysiology Follow Up Clinic Note Chief Complaint: Chief Complaint Patient presents with 3 Month Follow Up History of Present Illness: Nikko Barajas is a 79 y.o. male referred here in Aug 2024 for management of his AFib. He has known CAD s/p stent to the LAD and Circ in 2010 and repeat PCI to the prox LAD in Mar 2022. In 2021 he had a L CEA and had postop A-fib for which he was on amiodarone which was stopped at some point b/o abnormal PFTs. His LVEF had been preserved until Sep 2023 by echoes. He felt fine until late 2023 when he noticed more SOB/GARVIN and fatigue. In Mar 2024 he [facility] with R[facility] and a newly depressed LVEF of 25%. He was given metoprolol and amio, but not cardioverted. In May 2024 an echo showed a persistently low LVEF of 30% and he he had a CVN in Jun 2024, but recurred within a few days. He was started on digoxin, and Cardizem 120 mg daily in addition to metoprolol 100 mg twice a day. When I met him, I increased his Cardizem to 180 mg in the hope that his LV dysfunction was related to rapid heart rates and asked the [facility] to get a 24 for-hour Holter and repeat an echo. He returns today feeling well. He never felt palpitation with his A-fib, but clearly felt that more SOB/GARVIN in the fall 2023 compared to his baseline. He reports HRs in the 70s to 90s. This is confirmed by his Kardia strips which he does almost every day and all show heart rates less than 100 at rest. He denies chest pain, SOB/GARVIN, or LE edema since starting the Lasix. He is active around the yard and can do all of his ADLs without symptoms An ECG today shows atrial fibrillation with a VR of ~80 bpm, similar to the one in August.. An echo in May 2024 shows an LVEF of 30%, a severely enlarged LA (JOSEPH 75), moderately severe MR (3+), mild TR (PAP of 28 mmHg) and mild to mod AoS. A 24-hour Holter in September 2024 showed an average heart rate of 85 bpm. A repeat echo in Oct 2024 shows an LVEF of 35% with a moderately enlarged LA and 1-2+ MR/TR. Assessment and Plan: 1. Persistent Atrial Fibrillation: As far as I can tell, he may have gone into persistent A-fib in late 2023. His EF decrease may have been related to rapid rates, however his rates now are well-controlled, yet his EF has not improved. We need to treat his cardiomyopathy (see below). As far as rhythm vs rate control, he is currently asymptomatic. Given his severely enlarged LA, the likelihood of maintaining sinus rhythm is extremely low, especially since he has a contraindication to amiodarone. Given his persistent LV dysfunction, we need to stop the Cardizem. We we will have to follow his rates carefully. I will see him in November after those tests are done in [place] [facility]. Chronic systolic Heart Failure: Initially felt to be tachycardia mediated, but his rates have been controlled. He may have an element of ischemic cardiomyopathy. Today I spoke to him and his at length about the risk of sudden and the need for an ICD. I would implant a single-chamber ICD. This will allow us to monitor his heart rates in A-fib as well. He also needs better medical therapy. I will start him on Aldactone and Farxiga and increase his lisinopril to 10 mg daily. 3. CAD: This appears silent. No need for further workup at this point. Past Medical History: [Medical History] [Medical History] Past Medical History Diagnosis Date Acquired hypothyroidism 08/02/2024 Bilateral carotid artery stenosis 08/02/2024 Centrilobular emphysema (HCC) 08/02/2024 Claudication of both lower extremities (HCC) 08/02/2024 Coronary artery disease involving kake coronary artery of kake heart without angina pectoris 08/02/2024 Essential hypertension 08/02/2024 Mixed hyperlipidemia 08/02/2024 ORACIO on CPAP 08/02/2024 Paroxysmal atrial fibrillation (HCC) 08/02/2024 Prostate cancer (HCC) 08/02/2024 Systolic congestive heart failure with reduced left ventricular function, NYHA class 2 (HCC) 08/02/2024 Past Surgical History [Surgical History] [Surgical History] Past Surgical History Procedure Laterality Date CAROTID ENDARTERECTOMY Left 2021 CAROTID ENDARTERECTOMY Right 2023 CIRCUMCISION (HISTORICAL) CORONARY ANGIOPLASTY WITH STENT PLACEMENT 03/21/2022 HERNIA REPAIR KNEE ARTHROPLASTY Left PROSTATE BIOPSY 03/23/2023 PTCA W/ STENT, INITIAL (HISTORICAL) 01/22/2011 TONSILLECTOMY Family History [Family History] [Family History] Problem Relation Name Age of Onset Coronary artery disease Mother Stroke Father Cancer Brother Social History [Social History] [Social History] Tobacco Use Smoking status: Former Types: Cigarettes Smokeless tobacco: Never Vaping Use Vaping status: Never Used Substance Use Topics Alcohol use: Never Drug use: Never Medications: Reviewed Allergies: Reviewed Review of Systems: All other systems were reviewed and are negative other than as noted in the HPI. Physical Examination: Vitals: Blood pressure 124/66, pulse 82, height 5' 9 (1.753 m), weight 164 lb 6.4 oz (74.6 kg), SpO2 96%. Constitutional: Appears well kept and looks stated age; in NAD Psychiatric: A &O x3 Mood is pleasant; Affect is appropriate Musculoskeletal: Normocephalic; no joint swelling; gait steady; 5/5 muscle strength bilaterally in upper and lower extremities; no clubbing or cyanosis HEENT: Pupils are equal and round; Conjunctiva are not injected; Sclera are non-icteric; Airway and Nares are patent; Ears without external abnormalities. Mucosa is pink; Dentition is normal Neck: Supple; No JVD or Bruits; No thyromegaly; No lymphadenopathy Respiratory: Lungs are clear with no rales or wheezes. Respiratory effort is normal and symmetrical bilaterally; Good air movement bilaterally Heart: IRRR; Nl S1 and S2 2/6 aortic systolic murmur. 2/6 mitral regurgitation murmur. No crg Abdomen: NABS soft, non-tender, non-distended; no organomegaly; no obvious masses Extremities/Skin: Trace LE edema; Skin warm to touch and well perfused; skin discoloration is absent Neuro: sensation and motor function are grossly normal. Cranial Nerves are grossly intact Laboratory Tests: Reviewed Ronnie Troy MD DATE of SERVICE: 11/15/2024 H+ P copied to chart fromRonnie Troy progress note dated 11/15/24 on behalf of Ulises Perdomo MD I have examined the patient on admission and confirm that the necessity for the procedure is still present . The patient's condition has not changed since the History & Physical was originally completed. Ulises Perdomo MD 12/19/2024 documented in this encounter [facility] 12-12-2024 Miscellaneous Notes Addended by: LESLI JEFFERS on: 12/16/2024 03:59 PM Modules accepted: Orders documented in this encounter [facility] 12-12-2024 Miscellaneous Notes Addended by: LESLI JEFFERS on: 12/16/2024 03:59 PM Modules accepted: Orders documented in this encounter [facility] 12-12-2024 Note Addended by: LESLI JEFFERS on: 12/16/2024 03:59 PM Modules accepted: Orders [facility] Phone: 12-12-2024 Note Addended by: LESLI JEFFERS on: 12/16/2024 03:59 PM Modules accepted: Orders [facility] Work Phone: 12-12-2024 Note Office Visit 11/15/2024 [facility] Cardiology [facility] Ronnie Troy MD Cardiology Systolic congestive heart failure with reduced left ventricular function, NYHA class 2 (HCC) +11 more Dx 3 Month Follow Up Reason for Visit Progress Notes Ronnie Troy MD (Physician) Cardiology [facility] [place] Cardiology/Electrophysiology Follow Up Clinic Note Chief Complaint: Chief Complaint Patient presents with 3 Month Follow Up History of Present Illness: Nikko Barajas is a 79 y.o. male referred here in Aug 2024 for management of his AFib. He has known CAD s/p stent to the LAD and Circ in 2010 and repeat PCI to the prox LAD in Mar 2022. In 2021 he had a L CEA and had postop A-fib for which he was on amiodarone which was stopped at some point b/o abnormal PFTs. His LVEF had been preserved until Sep 2023 by echoes. He felt fine until late 2023 when he noticed more SOB/GARVIN and fatigue. In Mar 2024 he presented to [facility] with RVR and a newly depressed LVEF of 25%. He was given metoprolol and amio, but not cardioverted. In May 2024 an echo showed a persistently low LVEF of 30% and he he had a CVN in Jun 2024, but recurred within a few days. He was started on digoxin, and Cardizem 120 mg daily in addition to metoprolol 100 mg twice a day. When I met him, I increased his Cardizem to 180 mg in the hope that his LV dysfunction was related to rapid heart rates and asked the [facility] to get a 24 for-hour Holter and repeat an echo. He returns today feeling well. He never felt palpitation with his A-fib, but clearly felt that more SOB/GARVIN in the fall 2023 compared to his baseline. He reports HRs in the 70s to 90s. This is confirmed by his Kardia strips which he does almost every day and all show heart rates less than 100 at rest. He denies chest pain, SOB/GARVIN, or LE edema since starting the Lasix. He is active around the yard and can do all of his ADLs without symptoms An ECG today shows atrial fibrillation with a VR of ~80 bpm, similar to the one in August.. An echo in May 2024 shows an LVEF of 30%, a severely enlarged LA (JOSEPH 75), moderately severe MR (3+), mild TR (PAP of 28 mmHg) and mild to mod AoS. A 24-hour Holter in September 2024 showed an average heart rate of 85 bpm. A repeat echo in Oct 2024 shows an LVEF of 35% with a moderately enlarged LA and 1-2+ MR/TR. Assessment and Plan: 1. Persistent Atrial Fibrillation: As far as I can tell, he may have gone into persistent A-fib in late 2023. His EF decrease may have been related to rapid rates, however his rates now are well-controlled, yet his EF has not improved. We need to treat his cardiomyopathy (see below). As far as rhythm vs rate control, he is currently asymptomatic. Given his severely enlarged LA, the likelihood of maintaining sinus rhythm is extremely low, especially since he has a contraindication to amiodarone. Given his persistent LV dysfunction, we need to stop the Cardizem. We we will have to follow his rates carefully. I will see him in November after those tests are done in [place] [facility]. Chronic systolic Heart Failure: Initially felt to be tachycardia mediated, but his rates have been controlled. He may have an element of ischemic cardiomyopathy. Today I spoke to him and his at length about the risk of sudden and the need for an ICD. I would implant a single-chamber ICD. This will allow us to monitor his heart rates in A-fib as well. He also needs better medical therapy. I will start him on Aldactone and Farxiga and increase his lisinopril to 10 mg daily. 3. CAD: This appears silent. No need for further workup at this point. Past Medical History: [Medical History] [Medical History] Past Medical History Diagnosis Date Acquired hypothyroidism 08/02/2024 Bilateral carotid artery stenosis 08/02/2024 Centrilobular emphysema (HCC) 08/02/2024 Claudication of both lower extremities (HCC) 08/02/2024 Coronary artery disease involving kake coronary artery of kake heart without angina pectoris 08/02/2024 Essential hypertension 08/02/2024 Mixed hyperlipidemia 08/02/2024 ORACIO on CPAP 08/02/2024 Paroxysmal atrial fibrillation (HCC) 08/02/2024 Prostate cancer (HCC) 08/02/2024 Systolic congestive heart failure with reduced left ventricular function, NYHA class 2 (HCC) 08/02/2024 Past Surgical History [Surgical History] [Surgical History] Past Surgical History Procedure Laterality Date CAROTID ENDARTERECTOMY Left 2021 CAROTID ENDARTERECTOMY Right 2023 CIRCUMCISION (HISTORICAL) CORONARY ANGIOPLASTY WITH STENT PLACEMENT 03/21/2022 HERNIA REPAIR KNEE ARTHROPLASTY Left PROSTATE BIOPSY 03/23/2023 PTCA W/ STENT, INITIAL (HISTORICAL) 01/22/2011 TONSILLECTOMY Family History [Family History] [Family History] Problem Relation Name Age of Onset Coronary artery disease Mother Stroke Father Cancer Brother Social History [Social Hist (more content not included)... [facility] 12-12-2024 Note Office Visit 11/15/2024 [facility] Cardiology [facility] Ronnie Troy MD Cardiology Systolic congestive heart failure with reduced left ventricular function, NYHA class 2 (HCC) +11 more Dx 3 Month Follow Up Reason for Visit Progress Notes Ronnie Troy MD (Physician) Cardiology [facility] [place] Cardiology/Electrophysiology Follow Up Clinic Note Chief Complaint: Chief Complaint Patient presents with 3 Month Follow Up History of Present Illness: Nikko Barajas is a 79 y.o. male referred here in Aug 2024 for management of his AFib. He has known CAD s/p stent to the LAD and Circ in 2010 and repeat PCI to the prox LAD in Mar 2022. In 2021 he had a L CEA and had postop A-fib for which he was on amiodarone which was stopped at some point b/o abnormal PFTs. His LVEF had been preserved until Sep 2023 by echoes. He felt fine until late 2023 when he noticed more SOB/GARVIN and fatigue. In Mar 2024 he presented to [facility] in A-fib with RVR and a newly depressed LVEF of 25%. He was given metoprolol and amio, but not cardioverted. In May 2024 an echo showed a persistently low LVEF of 30% and he he had a CVN in Jun 2024, but recurred within a few days. He was started on digoxin, and Cardizem 120 mg daily in addition to metoprolol 100 mg twice a day. When I met him, I increased his Cardizem to 180 mg in the hope that his LV dysfunction was related to rapid heart rates and asked the [facility] to get a 24 for-hour Holter and repeat an echo. He returns today feeling well. He never felt palpitation with his A-fib, but clearly felt that more SOB/GARVIN in the fall 2023 compared to his baseline. He reports HRs in the 70s to 90s. This is confirmed by his Kardia strips which he does almost every day and all show heart rates less than 100 at rest. He denies chest pain, SOB/GARVIN, or LE edema since starting the Lasix. He is active around the yard and can do all of his ADLs without symptoms An ECG today shows atrial fibrillation with a VR of ~80 bpm, similar to the one in August.. An echo in May 2024 shows an LVEF of 30%, a severely enlarged LA (JOSEPH 75), moderately severe MR (3+), mild TR (PAP of 28 mmHg) and mild to mod AoS. A 24-hour Holter in September 2024 showed an average heart rate of 85 bpm. A repeat echo in Oct 2024 shows an LVEF of 35% with a moderately enlarged LA and 1-2+ MR/TR. Assessment and Plan: 1. Persistent Atrial Fibrillation: As far as I can tell, he may have gone into persistent A-fib in late 2023. His EF decrease may have been related to rapid rates, however his rates now are well-controlled, yet his EF has not improved. We need to treat his cardiomyopathy (see below). As far as rhythm vs rate control, he is currently asymptomatic. Given his severely enlarged LA, the likelihood of maintaining sinus rhythm is extremely low, especially since he has a contraindication to amiodarone. Given his persistent LV dysfunction, we need to stop the Cardizem. We we will have to follow his rates carefully. I will see him in November after those tests are done in [place] [facility]. Chronic systolic Heart Failure: Initially felt to be tachycardia mediated, but his rates have been controlled. He may have an element of ischemic cardiomyopathy. Today I spoke to him and his at length about the risk of sudden and the need for an ICD. I would implant a single-chamber ICD. This will allow us to monitor his heart rates in A-fib as well. He also needs better medical therapy. I will start him on Aldactone and Farxiga and increase his lisinopril to 10 mg daily. 3. CAD: This appears silent. No need for further workup at this point. Past Medical History: [Medical History] [Medical History] Past Medical History Diagnosis Date Acquired hypothyroidism 08/02/2024 Bilateral carotid artery stenosis 08/02/2024 Centrilobular emphysema (HCC) 08/02/2024 Claudication of both lower extremities (HCC) 08/02/2024 Coronary artery disease involving kake coronary artery of kake heart without angina pectoris 08/02/2024 Essential hypertension 08/02/2024 Mixed hyperlipidemia 08/02/2024 ORACIO on CPAP 08/02/2024 Paroxysmal atrial fibrillation (HCC) 08/02/2024 Prostate cancer (HCC) 08/02/2024 Systolic congestive heart failure with reduced left ventricular function, NYHA class 2 ([facility]) 08/02/2024 Past Surgical History [Surgical History] [Surgical History] Past Surgical History Procedure Laterality Date CAROTID ENDARTERECTOMY Left 2021 CAROTID ENDARTERECTOMY Right 2023 CIRCUMCISION (HISTORICAL) CORONARY ANGIOPLASTY WITH STENT PLACEMENT 03/21/2022 HERNIA REPAIR KNEE ARTHROPLASTY Left PROSTATE BIOPSY 03/23/2023 PTCA W/ STENT, INITIAL (HISTORICAL) 01/22/2011 TONSILLECTOMY Family History [Family History] [Family History] Problem Relation Name Age of Onset Coronary artery disease Mother Stroke Father Cancer Brother Social History [Social Hist (more content not included)... [facility] 11-15-2024 History of Presen t illness Narrative [facility] [place] Cardiology/Electrophysiology Follow Up Clinic Note Chief Complaint: Chief Complaint Patient presents with 3 Month Follow Up History of Present Illness: Nikko Barajas is a 79 y.o. male referred here in Aug 2024 for management of his AFib. He has known CAD s/p stent to the LAD and Circ in 2010 and repeat PCI to the prox LAD in Mar 2022. In 2021 he had a L CEA and had postop A-fib for which he was on amiodarone which was stopped at some point b/o abnormal PFTs. His LVEF had been preserved until Sep 2023 by echoes. He felt fine until late 2023 when he noticed more SOB/GARVIN and fatigue. In Mar 2024 he presented to [facility] in A-fib with RVR and a newly depressed LVEF of 25%. He was given metoprolol and amio, but not cardioverted. In May 2024 an echo showed a persistently low LVEF of 30% and he he had a CVN in Jun 2024, but recurred within a few days. He was started on digoxin, and Cardizem 120 mg daily in addition to metoprolol 100 mg twice a day. When I met him, I increased his Cardizem to 180 mg in the hope that his LV dysfunction was related to rapid heart rates and asked the [facility] to get a 24 for-hour Holter and repeat an echo. He returns today feeling well. He never felt palpitation with his A-fib, but clearly felt that more SOB/GARVIN in the fall 2023 compared to his baseline. He reports HRs in the 70s to 90s. This is confirmed by his Kardia strips which he does almost every day and all show heart rates less than 100 at rest. He denies chest pain, SOB/GARVIN, or LE edema since starting the Lasix. He is active around the yard and can do all of his ADLs without symptoms An ECG today shows atrial fibrillation with a VR of ~80 bpm, similar to the one in August.. An echo in May 2024 shows an LVEF of 30%, a severely enlarged LA (JOSEPH 75), moderately severe MR (3+), mild TR (PAP of 28 mmHg) and mild to mod AoS. A 24-hour Holter in September 2024 showed an average heart rate of 85 bpm. A repeat echo in Oct 2024 shows an LVEF of 35% with a moderately enlarged LA and 1-2+ MR/TR. Assessment and Plan: 1. Persistent Atrial Fibrillation: As far as I can tell, he may have gone into persistent A-fib in late 2023. His EF decrease may have been related to rapid rates, however his rates now are well-controlled, yet his EF has not improved. We need to treat his cardiomyopathy (see below). As far as rhythm vs rate control, he is currently asymptomatic. Given his severely enlarged LA, the likelihood of maintaining sinus rhythm is extremely low, especially since he has a contraindication to amiodarone. Given his persistent LV dysfunction, we need to stop the Cardizem. We we will have to follow his rates carefully. I will see him in November after those tests are done in [place] [facility]. Chronic systolic Heart Failure: Initially felt to be tachycardia mediated, but his rates have been controlled. He may have an element of ischemic cardiomyopathy. Today I spoke to him and his at length about the risk of sudden and the need for an ICD. I would implant a single-chamber ICD. This will allow us to monitor his heart rates in [facility] as well. He also needs better medical therapy. I will start him on Aldactone and Farxiga and increase his lisinopril to 10 mg daily. 3. CAD: This appears silent. No need for further workup at this point. Past Medical History: Medical History[1] Past Surgical History Surgical History[2] Family History Family History[3] Social History Social History[4] Medications: Reviewed Allergies: Reviewed Review of Systems: All other systems were reviewed and are negative other than as noted in the HPI. Physical Examination: Vitals: Blood pressure 124/66, pulse 82, height 5' 9 (1.753 m), weight 164 lb 6.4 oz (74.6 kg), SpO2 96%. Constitutional: Appears well kept and looks stated age; in NAD Psychiatric: A &O x3 Mood is pleasant; Affect is appropriate Musculoskeletal: Normocephalic; no joint swelling; gait steady; 5/5 muscle strength bilaterally in upper and lower extremities; no clubbing or cyanosis HEENT: Pupils are equal and round; Conjunctiva are not injected; Sclera are non-icteric; Airway and Nares are patent; Ears without external abnormalities. Mucosa is pink; Dentition is normal Neck: Supple; No JVD or Bruits; No thyromegaly; No lymphadenopathy Respiratory: Lungs are clear with no rales or wheezes. Respiratory effort is normal and symmetrical bilaterally; Good air movement bilaterally Heart: IRRR; Nl S1 and S2 2/6 aortic systolic murmur. 2/6 mitral regurgitation murmur. No crg Abdomen: NABS soft, non-tender, non-distended; no organomegaly; no obvious masses Extremities/Skin: Trace LE edema; Skin warm to touch and well perfused; skin discoloration is absent Neuro: sensation and motor function are grossly normal. Cranial Nerves are grossly intact Laboratory Tests: Reviewed Ronnie Troy MD DATE of SERVICE: 11/15/2024 [1] Past Medical History: Diagnosis Date Acquired hypothyroidism 08/02/2024 Bilateral carotid artery stenosis 08/02/2024 Centrilobular emphysema (HCC) 08/02/2024 Claudication of both lower extremities (HCC) 08/02/2024 Coronary artery disease involving kake coronary artery of kake heart without angina pectoris 08/02/2024 Essential hypertension 08/02/2024 Mixed hyperlipidemia 08/02/2024 ORACIO on CPAP 08/02/2024 Paroxysmal atrial fibrillation (HCC) 08/02/2024 Prostate cancer (HCC) 08/02/2024 Systolic congestive heart failure with reduced left ventricular function, NYHA class 2 (HCC) 08/02/2024 [2] Past Surgical History: Procedure Laterality Date CAROTID ENDARTERECTOMY Left 2021 CAROTID ENDARTERECTOMY Right 2023 CIRCUMCISION (HISTORICAL) CORONARY ANGIOPLASTY WITH STENT PLACEMENT 03/21/2022 HERNIA REPAIR KNEE ARTHROPLASTY Left PROSTATE BIOPSY 03/23/2023 PTCA W/ STENT, INITIAL (HISTORICAL) 01/22/2011 TONSILLECTOMY [3] Family History Problem Relation Name Age of Onset Coronary artery disease Mother Stroke Father Cancer Brother [4] Social History Tobacco Use Smoking status: Former Types: Cigarettes Smokeless tobacco: Never Vaping Use Vaping status: Never Used Substance Use Topics Alcohol use: Never Drug use: Never documented in this encounter [facility] 10-17-2024 Progress note [facility] 10-17-2024 Progress note Note Date/Time October 17, 2024 10:56am [facility] [address] [place] [id number] OFFICE VISIT Date of Service: 10/17/24 1029 MR#: [id number] Acct: [id number] Name: NIKKO BARAJAS Rep #: [id number] : 1945 From: Nazario eugene DO Age/Sex: 79/M Location[place] [facility] [place] Status: Signed Intake Vital Signs 08/16/24 09:54 10/17/24 10:32 Height 5 ft 9 in 5 ft 9 in Weight: 162 lb 6 oz BMI 24.0 BP 136/70 H Blood Pressure Location Lt brachial Position Sitting Respiration 16 Pulse 60 Pulse Source Monitor Temp 96.9 F L Temperature Source Temporal Artery Pulse Oximetry (%) 98 Oxygen Delivery Method room air Intake Visit Reasons: 2 MONTH F/U PROSTATE, PSA PRIOR Chief Complaint: fu Is patient in pain?: No Allergies bee venom protein (honey bee) (bee stings) Allergy (Severe, Verified 10/17/24 10:31) Anaphylaxis venom-wasp protein Allergy (Severe, Verified 10/17/24 10:31) Anaphylaxis Medications ?Medication ?Instructions ?Recorded ?Confirmed ?Type clopidogrel 75 mg tablet (Plavix) 75 mg PO QDAY CLOTTI NG 05/22/17 10/17/24 History pantoprazole 40 mg tablet,delayed 40 mg PO QDAY GERD 0 05/22/17 10/17/24 History release albuterol sulfate 90 mcg/actuation 2 puff inhalation Q 6H PRN Wheezing 07/20/17 10/17/24 History aerosol inhaler (ProAir HFA) cholecalciferol (vitamin D3) 25 3,000 unit PO DAILY TAMIN 04/01/18 10/17/24 History mcg (1,000 unit) capsule tiotropium bromide 2.5 2 inh inhalation QAM COPD 10/17/24 History mcg/actuation mist for inhalation (Spiriva Respimat) apixaban 5 mg tablet (Eliquis) 5 mg PO BID BLOOD THINN ER 04/07/23 10/17/24 His tory levothyroxine 75 mcg capsule 75 mcg PO DAILY HYPOTHYRO ID 04/14/23 10/17/24 History Handicap placard #1 ea 08/12/23 10/17/24 Rx nitroglycerin 0.4 mg sublingual 0.4 mg sublingual Q5-1 5M CHEST 08/12/23 10/17/24 Rx tablet PAIN #20 tabs digoxin 125 mcg (0.125 mg) tablet 125 mcg PO DAILY #90 tabs 05/03/24 10/17/24 Rx (Lanoxin) lisinopril 2.5 mg tablet 2.5 mg PO DAILY #90 tabs 10/17/24 Rx metoprolol succinate 100 mg 100 mg PO BID #180 tabs 10/17/24 Rx tablet,extended release 24 hr diltiazem HCl 120 mg 120 mg PO QAM #30 caps 06/2310/17/24 Rx capsule,extended release 24 hr furosemide 40 mg tablet 40 mg PO DAILY EDEMA #90 TAB LETS 06/30/24 10/17/24 Rx vit C 250 mg-vit E 90 mg-zinc 40 1 tab PO BID 06/30/24 10/17/24 History mg-copper 1 nu-ehskxv-raghhk capsule (PreserVision AREDS-2) allopurinol 300 mg tablet 300 mg PO DAILY for gout trinh n #90 08/23/24 10/17/24 Rx TABLETS ferrous sulfate 325 mg (65 mg 325 mg PO BID #180 TABLE TS 08/31/24 10/17/24 Rx iron) tablet atorvastatin 40 mg tablet 40 mg PO QHS #90 TABLETS 10/17/24 Rx potassium chloride 10 mEq 10 meq PO DAILY #90 TABLETS 09/12/24 10/17/24 Rx tablet,extended release Have you fallen in the past year?: No PFSH PFSH Medical History Acute exacerbation of chronic heart failure Atrial fibrillation with RVR Thyroid disease High cholesterol Back pain Former smoker CPAP (continuous positive airway pressure) dependence Sleep apnea Emphysema, unspecified History of pain when walking History of edema History of echocardiogram History of atrial fibrillation Primary malignant neoplasm of prostate with high risk of recurrence due to [place] score of 8 to 10 and PSA greater than 20 Nocturia Spermatocele of epididymis Prostate cancer Dyslipidemia 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 Bilateral lower extremity edema Carotid artery disease Peripheral arterial disease Paroxysmal atrial fibrillation Claudication of both lower extremities Aortic valve stenosis Bradycardia FPC current use of amiodarone Phimosis Hypothyroidism Encounter for circumcision CAD (coronary artery disease) Wears hearing aid Wears glasses Wears dentures Cancer Ambulates with cane Gout Easy bruising Excessive bleeding History of hiatal hernia Gastric reflux Former smoker Shortness of breath on exertion Leg cramps History of heart attack History of stress test Cardiology follow-up encounter History of irregular heartbeat Chest pain Abnormal stress test Abnormal computed tomography of cecum and terminal ileum Testicular discomfort Right inguinal hernia Peripheral neuritis of left foot Carotid stenosis, bilateral Essential hypertension Arthritis Old myocardial infarction 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 COPD (chronic obstructive pulmonary disease) Hypertension Hyperlipidemia Home Medications ?Medication ?Instructions ?Recorded ?Last Taken ?Type clopidogrel 75 mg tablet (Plavix) 75 mg PO QDAY CLOTTI NG 05/22/17 11/08/23 History pantoprazole 40 mg tablet,delayed 40 mg PO QDAY GERD 0 05/22/17 07/05/24 History release albuterol sulfate 90 mcg/actuation 2 puff inhalation Q 6H PRN Wheezing 07/20/17 11/09/21 History aerosol inhaler (ProAir HFA) cholecalciferol (vitamin D3) 25 3,000 unit PO DAILY TAMIN 04/01/18 11/08/23 History mcg (1,000 unit) capsule tiotropium bromide 2.5 2 inh inhalation QAM COPD 11/09/23 History mcg/actuation mist for inhalation (Spiriva Respimat) apixaban 5 mg tablet (Eliquis) 5 mg PO BID BLOOD THINN ER 04/07/23 07/05/24 History levothyroxine 75 mcg capsule 75 mcg PO DAILY HYPOTHYRO ID 04/14/23 07/05/24 History Handicap placard #1 ea 08/12/23 Unknown Rx nitroglycerin 0.4 mg sublingual 0.4 mg sublingual Q5-1 5M CHEST 08/12/23 Unknown Rx tablet PAIN #20 tabs digoxin 125 mcg (0.125 mg) tablet 125 mcg PO DAILY #90 tabs 05/03/24 07/05/24 Rx (Lanoxin) lisinopril 2.5 mg tablet 2.5 mg PO DAILY #90 tabs 07/05/24 Rx metoprolol succinate 100 mg 100 mg PO BID #180 tabs 07/05/24 Rx tablet,extended release 24 hr diltiazem HCl 120 mg 120 mg PO QAM #30 caps 06/2307/05/24 Rx capsule,extended release 24 hr furosemide 40 mg tablet 40 mg PO DAILY EDEMA #90 TAB LETS 06/30/24 Unknown Rx vit C 250 mg-vit E 90 mg-zinc 40 1 tab PO BID 06/30/24 Unknown History mg-copper 1 ms-asjocv-escmbq capsule (PreserVision AREDS-2) allopurinol 300 mg tablet 300 mg PO DAILY for gout trinh n #90 08/23/24 Unknown Rx TABLETS ferrous sulfate 325 mg (65 mg 325 mg PO BID #180 TABLE TS 08/31/24 Unknown Rx iron) tablet atorvastatin 40 mg tablet 40 mg PO QHS #90 TABLETS Unknown Rx potassium chloride 10 mEq 10 meq PO DAILY #90 TABLETS 09/12/24 Unknown Rx tablet,extended release Allergy/AdvReac Type Severity Reaction Status Date / Time bee venom protein (honey Allergy Severe Anaphylaxis Verified 10/17/24 10:31 bee) (bee stings) venom-wasp protein Allergy Severe Anaphylaxis Verified 10/17/24 10:31 Family History Father CVA (cerebral vascular accident) Mother CAD (coronary artery disease) Hx of CABG CHF (congestive heart failure) S/P MVR (mitral valve replacement) Brother COPD (chronic obstructive pulmonary disease) Diabetes Cancer lung Grandfather Colon cancer Surgical History History of skin graft History of coronary artery stent placement History of left-sided carotid endarterectomy H/O hernia repair Hx of circumcision Hx of prostate biopsy (~03/23/23) History of left-sided carotid endarterectomy Status post carotid endarterectomy History of cardiac catheterization H/O local excision of skin lesion History of brain surgery History of left knee surgery History of tonsillectomy Postsurgical percutaneous transluminal coronary angioplasty (PTCA) status (03/21/22) Presence of stent in coronary artery (~01/22/11) Social History household members: spouse Smoking Status: Former smoker how long ago did patient quit smokin alcohol intake: never substance use type: does not use caffeine: Yes (3 servings per day) what type of physical activity do you participate in: walking frequency: daily Diagnosis: Nikko Barajas is a 79 year-old male diagnosed with 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 From 06/08/2023 ? 07/16/2023 he completed definitive radiation therapy with ADT. History of Present Illness: 03/23/2023: Patient completed TRUS guided prostate biopsy.? Pathology demonstratedGleason 5+3 adenocarcinoma involving about 90% of 1/1 core in the right prostateapex, [place]chorage 3+4 adenocarcinoma involving greater than 95% of 1/1 core in the right prostate mid, about 75% of 1/1 core within the right prostate base, about 60% of 1/1 core of the left prostate apex, and about 50% of 1/1 core the left prostate base, and Yaya 3+3 adenocarcinoma involving about 70% of 1/1 core inthe left prostate mid 04/07/2023: Seen by urology, recommended radiation with ADT.? Initiated [facility]. 04/28/2023: PSMA PET scan was performed.? This demonstrated increased radiopharmaceutical concentration defined in the prostate gland to the right of midline for filling quantitative criteria for malignant transformation.? No other abnormalities are noted. 05/27/2023: MRI pelvis with and without contrast was performed.? This demonstrated infiltrative intermediate to low signal process at the midline of the right and left peripheral zones also demonstrating enhancement on the postcontrast study but no significant diffusion restriction is seen.? Parents category 4. From 06/08/2023 ? 07/16/2023: received definitive radiation therapy consisting of 7000 cGy delivered to the prostate and seminal vesicles and 5040 cGy delivered to the at risk pelvic lymph nodes all in 28 fractions. He was treated with a VMAT plan using 10 MV photons. Radiation Treatment History: 1) From 06/08/2023 ? 07/16/2023: received definitive radiation therapy consisting of 7000 cGy delivered to the prostate and seminal vesicles and 5040 cGy delivered to the at risk pelvic lymph nodes all in 28 fractions. He was treated with a VMAT plan using 10 MV photons. Interval History: Patient returns for follow-up approximately 15 months after completing definitive radiation therapy. He reports doing well overall. He does report urinary frequency more than half the time, intermittency about half the time, incomplete emptying, urgency, weak stream all less than half the time, and denies having straining. He has nocturia about once per night. He does have good control and minimal if any leakage, just occasionally when he has severe urgency and cannot get to the bathroom in time. About a week ago he developed bleeding after urinating where he had some drips of blood into the toilet bowl and this has happened a couple times in the last week, he has plans for cystoscopy in the next couple of weeks and has already seen urology. He also has some burning type discomfort that has developed as well. He is taking Lasix40 mg/day. He completed ADT about 4-5 months ago and continues to have hot flashes but energy loss has mostly recovered. He believes he did about 18 months of ADT. He does report intermittent constipation and diarrhea and does not really take any medications. Denies any recent hemorrhoid flares, occasional bleeding with wiping. Denies leakage or incontinence of stool. He denies cough, shortness of breath, chest pain, bone pain. He is staying relatively active in his daily life and completes all ADLs without any difficulty. He denies having other problems or concerns at this time. IPSS: 14 NAHID: 1 Review of Systems: A 12-point review of systems was completed and was negative except for what is noted in the HPI/Interval History and by the nurse. Physical Exam: Weight: 162 lbs 6 oz ECO KARNOFSKY SCORE: 70% CONSTITUTIONAL: Well-developed, well-nourished, and in no apparent distress. CARDIAC: Regular rate and rhythm. Normal S1, S2. No murmurs, rubs, or gallops. PULMONARY/CHEST: Lungs are clear to auscultation and percussion bilaterally. No wheezes, rhonchi, or crackles noted. No increased work of breathing. ABDOMINAL: Abdomen soft, non-tender, non-distended. No hepatomegaly. Normoactivebowel sounds in all four quadrants. No guarding, rebound. EXTREMITIES: Full range of motion in all four extremities. No evidence of edema. RAFA: Deferred PSYCHIATRIC: Appropriate mood and affect for the clinical situation. 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 From 06/08/2023 ? 07/16/2023 he completed definitive radiation therapy with ADT. ? Plan: Patient presents for follow-up approximately 15 months after completing definitive radiation therapy concurrent with ADT for high risk prostate cancer. He is doing well overall and has no signs or symptoms concerning for developmentof disease progression or metastatic disease. Urinary symptoms are a little worse, he also developed hematuria and some dysuria last week and planning for cystoscopy. PSA completed 07/14/2024 is 0.06 down from his initial of 9.15 completed in February 2023, today PSA is pending. He completed 18 months of ADT and is now done. I recommended close observation of his PSA every 3 months. I will plan to have him return for routine follow-up in 3 months and he was instructed to call with any further questions or concerns in the interim. ? ? Thank you for allowing me to participate in the management and care of your patient. If I may answer any questions in the interim, please do not hesitate to contact me at any time. ? Nazario Colby DO, MS Temp Recruiter, Department of Radiation Oncology [facility] Coding Level of Care Code Off vis,est,level 3 Diagnoses Primary malignant neoplasm of prostate with high risk of recurrence due to Yaya score of 8 to 10 and PSA greater than 20 C61 10/17/24 1056 <Electronically signed by Nazario Colby DO> Date _ Nazario Colby DO Cosigner Signature: Date (if applicable) CC: ~ [place] Work Phone: [phone] 575-449508-01-2025 History of Present illness Narrative* Lesli Jeffers APRN - [place] - 10/14/2024 12:54 PM EDT Echo ordered per Dr. Troy request --patient to have completed at [facility] documented in this [facility]06[facility]26-2025 Radiology Diagnostic study note [facility] Imaging Services [address] [place] [address] Breast Limited Unilateral MR#: [id number] Acct: [id number] Name: NIKKO BARAJAS Rep #: [id number] : 1945 M 79 From: Erik Shaver MD PCP: Dr. Santosh Velazquez DO Status: RE G CLI Study:Breast Limited Unilateral Date of Exam: 09/08/24 Exam# [id number] Ordering Dr: Do sulaiman Velazquez DO PROCEDURE: BREAST LIMITED UNILATERAL 09/08/2024 REASON FOR EXAM: M, Age 79 y/o , BREAST LUMP COMPARISON: Prior mammogram done earlier in the day.. TECHNIQUE: BREAST LIMITED UNILATERAL FINDINGS: Targeted sonogram of the right breast was performed. The upper-outer quadrant of the right breast was examined. There is a 1.3 cm by 1.7 cm x 0.9 cm echogenic nodular density at the 11 o'clockposition of the breast at 5 cm from the nipple. This is just deep to the skin surface. This most likely represents a lipoma. No retroareolar abnormality seen. US/Breast Limited Unilateral IMPRESSION: Findings suggestive of a lipoma at 11 o'clock position of the breast at 5 cm from the nipple. BI-RADS 2: BENIGN RECOMMEND ANNUAL MAMMOGRAPHIC SCREENING. RECOMMENDATION: Routine annual follow-up in 1 Year Reading Location: [facility] CC: Dr. Santosh Velazquez DO ~ Title Specialist: Signed [facility]06-18-2025 [facility] [address] [place] [address] [place] [address] OFFICE VISIT Date of Service: 08/31/24 MR#: [id number] Acct: [id number] Name: NIKKO BARAJAS Rep #: [id number] : 1945 Provider: Dr. Neo Velazquez DO Age/Sex: 79/M [place] [facility] [place] Status: Signed Intake Vital Signs 05/03/24 09:41 08/16/24 09:54 08/31/24 10:03 Height 5 ft 9 in 5 ft 9 in 5 ft 9 in Weight: 157 lb 9 oz 161 lb 4 oz BMI 23.2 23.8 BP 129/69 H 118/60 Blood Pressure Location Rt brachial Rt brachial Position Sitting Sitting Respiration 16 16 Pulse 85 43 L Pulse Source Monitor Monitor Temp 97.9 F 96.5 F L Temp Source Temporal Pulse Oximetry (%) 98 93 Oxygen Delivery Method room air room air Intake Visit Reasons: 4 M FU Chief Complaint: fu Client Server Programmer Required: No Accompanied by: Self Is patient in pain?: No Allergies bee venom protein (honey bee) (bee stings) Allergy (Severe, Verified 08/31/24 10:03) Anaphylaxis venom-wasp protein Allergy (Severe, Verified 08/31/24 10:03) Anaphylaxis Medications ?Medication ?Instructions ?Recorded ?Confirmed ?Type clopidogrel 75 mg tablet (Plavix) 75 mg PO QDAY CLOTTI NG 05/22/17 08/31/24 History pantoprazole 40 mg tablet,delayed 40 mg PO QDAY GERD 0 05/22/17 08/31/24 History release albuterol sulfate 90 mcg/actuation 2 puff inhalation Q 6H PRN Wheezing 07/20/17 08/31/24 History aerosol inhaler (ProAir HFA) cholecalciferol (vitamin D3) 25 3,000 unit PO DAILY TAMIN 04/01/18 08/31/24 History mcg (1,000 unit) capsule tiotropium bromide 2.5 2 inh inhalation QAM COPD 08/31/24 History mcg/actuation mist for inhalation (Spiriva Respimat) apixaban 5 mg tablet (Eliquis) 5 mg PO BID BLOOD THINN ER 04/07/23 08/31/24 History levothyroxine 75 mcg capsule 75 mcg PO DAILY HYPOTHYRO ID 04/14/23 08/31/24 History potassium chloride 10 mEq 10 meq PO DAILY LOW POTASSIU M #90 08/11/23 08/31/24 Rx tablet,extended release TABLETS Handicap placard #1 ea 08/12/23 08/31/24 Rx nitroglycerin 0.4 mg sublingual 0.4 mg sublingual Q5-1 5M CHEST 08/12/23 08/31/24 Rx tablet PAIN #20 tabs atorvastatin 40 mg tablet 40 mg PO QHS HYPERLIPIDEMIA #90 09/29/23 08/31/24 Rx tabs digoxin 125 mcg (0.125 mg) tablet 125 mcg PO DAILY #90 tabs 05/03/24 08/31/24 Rx (Lanoxin) lisinopril 2.5 mg tablet 2.5 mg PO DAILY #90 tabs 08/31/24 Rx metoprolol succinate 100 mg 100 mg PO BID #180 tabs 08/31/24 Rx tablet,extended release 24 hr diltiazem HCl 120 mg 120 mg PO QAM #30 caps 06/2308/31/24 Rx capsule,extended release 24 hr furosemide 40 mg tablet 40 mg PO DAILY EDEMA #90 TAB LETS 06/30/24 08/31/24 Rx vit C 250 mg-vit E 90 mg-zinc 40 1 tab PO BID 06/30/24 08/31/24 History mg-copper 1 ta-wfvynn-fwxehu capsule (PreserVision AREDS-2) allopurinol 300 mg tablet 300 mg PO DAILY for gout trinh n #90 08/23/24 08/31/24 Rx TABLETS ferrous sulfate 325 mg (65 mg 325 mg PO BID #180 TABLE TS 08/31/24 08/31/24 Rx iron) tablet Have you fallen in the past year?: No PFSH Medical History Acute exacerbation of chronic heart failure Atrial fibrillation with RVR Thyroid disease High cholesterol Back pain Former smoker CPAP (continuous positive airway pressure) dependence Sleep apnea Emphysema, unspecified History of pain when walking History of edema History of echocardiogram History of atrial fibrillation Primary malignant neoplasm of prostate with high risk of recurrence due to Yaya score of 8 to 10and PSA greater than 20 Nocturia Spermatocele of epididymis Prostate cancer Dyslipidemia 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 Bilateral lower extremity edema Carotid artery disease Peripheral arterial disease Paroxysmal atrial fibrillation Claudication of both lower extremities Aortic valve stenosis 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 Phimosis Hypothyroidism Encounter for circumcision CAD (coronary artery disease) Wears hearing aid Wears glasses Wears dentures Cancer Ambulates with cane Gout Easy bruising Excessive bleeding History of hiatal hernia Gastric reflux Former smoker Shortness of breath on exertion Leg cramps History of heart attack History of stress test Cardiology follow-up encounter History of irregular heartbeat Chest pain Abnormal stress test Abnormal computed tomography of cecum and terminal ileum Testicular discomfort Right inguinal hernia Peripheral neuritis of left foot Carotid stenosis, bilateral Essential hypertension Arthritis Old myocardial infarction 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 COPD (chronic obstructive pulmonary disease) Hypertension Hyperlipidemia Surgical History History of skin graft History of coronary artery stent placement History of left-sided carotid endarterectomy H/O hernia repair Hx of circumcision Hx of prostate biopsy (~03/23/23) History of left-sided carotid endarterectomy Status post carotid endarterectomy History of cardiac catheterization H/O local excision of skin lesion History of brain surgery History of left knee surgery History of tonsillectomy Postsurgical percutaneous transluminal coronary angioplasty (PTCA) status (03/21/22) Presence of stent in coronary artery (~01/22/11) Family History Father CVA (cerebral vascular accident) Mother CAD (coronary artery disease) Hx of CABG CHF (congestive heart failure) S/P MVR (mitral valve replacement) Brother COPD (chronic obstructive pulmonary disease) Diabetes Cancer lung Grandfather Colon cancer Social History household members: spouse Smoking Status: Former smoker how long ago did patient quit smokin alcohol intake: never substance use type: does not use caffeine: Yes (3 servings per day) what type of physical activity do you participate in: walking frequency: daily HPI HPI Chief Complaint: fu Details: NIKKO BARAJAS, is a 79 M who presents to the office today for ROS Const Constitutional: No body ache, excessive sweating, fatigue, fever(s), frequent falls, headache(s), snoring, weakness, weight change, sleep problems or change in appetite Eyes Eyes: No blurry vision, change in vision, eye pain or Light sensitivity ENT ENT: No abnormal hearing, ear or mastoid pain, tinnitus, nasal congestion, headache(s), neck pain or sore throat Resp Respiratory: No cough, shortness of breath, snoring or wheezing Cardio Cardiology: No chest pain at rest, chest pain with exertion, excessive sweating,shortness of breath, dyspnea on exertion, lightheadedness, orthopnea or palpitations Gastro GI: No abdominal pain, change in bowel habits, constipation, cramping, diarrhea,nausea/dyspepsia orvomiting Genitourinary Male: No burning urination, painful urination, urinary incontinence, urinary frequency or blood in urine Musc Musculoskeletal: No abnormal gait, joint pain, back pain, limited range of motion, neck pain, numbness, stiffness, tingling or Arthritis Skin Skin: No dry skin, redness, lesions, itchy eyes, rash or wounds Neuro Neurology: No abnormal gait, abnormal hearing, abnormal speech, dizziness, weakness, frequent falls, headache(s), memory loss, numbness or tingling Psych Psychiatric: No anxiety, No change in appetite, No depression, No memory loss and No Thoughts of harming yourself/Others Endo Endocrine: No cold intolerance, excessive sweating, fatigue, flushing, heat intolerance, increased thirst/drinking, increased hunger or weight change Aller/Imm Allergy/Immunologic: No itchy eyes, seasonal allergy symptoms, hives or wheezing Raúl/Lymp Hematologic/Lymphatic: No easy bleeding, easy bruising or enlarged lymph nodes Exam Const General: cooperative and healthy appearing Nutritional Appearance: average body habitus [facility] Head: normal to inspection Eyes General: appearance normal, both eyes and all related structures Neck Neck: normal visual inspection Thyroid: thyroid normal Chest Breast inspection: abnormal inspection of the breast (2 cm lump palpated on the right breast superficial, with some bruising.) right upper inner Resp Effort & Inspection: normal respiratory effort Auscultation: Bilateral: Clear to Auscultation Cardio Rate: regular rate Rhythm: regular rhythm GI Inspection: normal to inspection Skin General: no rashes or lesions noted Neuro General: patient alert Gait: normal gait Extrem General: normal to inspection Psych Judgment: judgment good Coding Level of Care Code Off vis,est,level 3 Diagnoses Atrial fibrillation I48.91 Breast lump in upper inner quadrant N63.0 Assessment and Plan Assessment and Plan (1) Atrial fibrillation: Status: Acute Plan: Patient has good rate control with his atrial fibrillation. (2) Breast lump in upper inner quadrant: Status: Acute Plan: This is a fairly firm lump and superficial with some evidence of bruising to theskin. He has no history of trauma to the chest and it feels more solid than a simple bruise would be so we will investigate this by doing an ultrasound. Orders: Orders Breast Limited Unilateral Today N63.0 - Unspecified lump in unspecified breast Cardiac Holter Monitor, 48 Hrs Today I48.91 - Unspecified atrial fibrillation Medications: Refilled ferrous sulfate 325 mg PO BID 180 TABLETS 1RF Plan Details Follow Up: 6 Months Clinical Quality Measures Falls Risk Screening/Assistive Devices Have you fallen in the past year?: No 08/31/24 1030 wn DO> Date _ Santosh Velazquez DO Cosigner Signature: Date (if applicable) CC: ~ [facility]06-18-2025 Progress note Author Santosh Velazquez [facility] Services Note Date/Time August 31, 2024 10:3 0am [place] [facility] [address] [place], [place] [address] OFFICE VISIT Date of Service: 08/31/24 MR#: [id number] Acct: [id number] Name: NIKKO BARAJAS Rep #: [id number] : 1945 Provider: Dr. 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 Accompanied by: Self Is patient in pain?: No Allergies bee venom protein (honey bee) (bee stings) Allergy (Severe, Verified 08/31/24 10:03) Anaphylaxis venom-wasp protein Allergy (Severe, Verified 08/31/24 10:03) Anaphylaxis Medications ?Medication ?Instructions ?Recorded ?Confirmed ?Type clopidogrel 75 mg tablet (Plavix) 75 mg PO QDAY CLOTTI NG 05/22/17 08/31/24 History pantoprazole 40 mg tablet,delayed 40 mg PO QDAY GERD 0 05/22/17 08/31/24 History release albuterol sulfate 90 mcg/actuation 2 puff inhalation Q 6H PRN Wheezing 07/20/17 08/31/24 History aerosol inhaler (ProAir HFA) cholecalciferol (vitamin D3) 25 3,000 unit PO DAILY TAMIN 04/01/18 08/31/24 History mcg (1,000 unit) capsule tiotropium bromide 2.5 2 inh inhalation QAM COPD 08/31/24 History mcg/actuation mist for inhalation (Spiriva Respimat) apixaban 5 mg tablet (Eliquis) 5 mg PO BID BLOOD THINN ER 04/07/23 08/31/24 History levothyroxine 75 mcg capsule 75 mcg PO DAILY HYPOTHYRO ID 04/14/23 08/31/24 History potassium chloride 10 mEq 10 meq PO DAILY LOW POTASSIU M #90 08/11/23 08/31/24 Rx tablet,extended release TABLETS Handicap placard #1 ea 08/12/23 08/31/24 Rx nitroglycerin 0.4 mg sublingual 0.4 mg sublingual Q5-1 5M CHEST 08/12/23 08/31/24 Rx tablet PAIN #20 tabs atorvastatin 40 mg tablet 40 mg PO QHS HYPERLIPIDEMIA #90 09/29/23 08/31/24 Rx tabs digoxin 125 mcg (0.125 mg) tablet 125 mcg PO DAILY #90 tabs 05/03/24 08/31/24 Rx (Lanoxin) lisinopril 2.5 mg tablet 2.5 mg PO DAILY #90 tabs 08/31/24 Rx metoprolol succinate 100 mg 100 mg PO BID #180 tabs 08/31/24 Rx tablet,extended release 24 hr diltiazem HCl 120 mg 120 mg PO QAM #30 caps 06/2308/31/24 Rx capsule,extended release 24 hr furosemide 40 mg tablet 40 mg PO DAILY EDEMA #90 TAB LETS 06/30/24 08/31/24 Rx vit C 250 mg-vit E 90 mg-zinc 40 1 tab PO BID 06/30/24 08/31/24 History mg-copper 1 [id number] capsule (PreserVision AREDS-2) allopurinol 300 mg tablet 300 mg PO DAILY for gout trinh n #90 08/23/24 08/31/24 Rx TABLETS ferrous sulfate 325 mg (65 mg 325 mg PO BID #180 TABLE TS 08/31/24 08/31/24 Rx iron) tablet Have you fallen in the past year?: No PFSH Medical History Acute exacerbation of chronic heart failure Atrial fibrillation with RVR Thyroid disease High cholesterol Back pain Former smoker CPAP (continuous positive airway pressure) dependence Sleep apnea Emphysema, unspecified History of pain when walking History of edema History of echocardiogram History of atrial fibrillation Primary malignant neoplasm of prostate with high risk of recurrence due to [place] score of 8 to 10 and PSA greater than 20 Nocturia Spermatocele of epididymis Prostate cancer Dyslipidemia 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 Bilateral lower extremity edema Carotid artery disease Peripheral arterial disease Paroxysmal atrial fibrillation Claudication of both lower extremities Aortic valve stenosis 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 Phimosis Hypothyroidism Encounter for circumcision CAD (coronary artery disease) Wears hearing aid Wears glasses Wears dentures Cancer Ambulates with cane Gout Easy bruising Excessive bleeding History of hiatal hernia Gastric reflux Former smoker Shortness of breath on exertion Leg cramps History of heart attack History of stress test Cardiology follow-up encounter History of irregular heartbeat Chest pain Abnormal stress test Abnormal computed tomography of cecum and terminal ileum Testicular discomfort Right inguinal hernia Peripheral neuritis of left foot Carotid stenosis, bilateral Essential hypertension Arthritis Old myocardial infarction 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 COPD (chronic obstructive pulmonary disease) Hypertension Hyperlipidemia Surgical History History of skin graft History of coronary artery stent placement History of left-sided carotid endarterectomy H/O hernia repair Hx of circumcision Hx of prostate biopsy (~03/23/23) History of left-sided carotid endarterectomy Status post carotid endarterectomy History of cardiac catheterization H/O local excision of skin lesion History of brain surgery History of left knee surgery History of tonsillectomy Postsurgical percutaneous transluminal coronary angioplasty (PTCA) status (03/21/22) Presence of stent in coronary artery (~01/22/11) Family History Father CVA (cerebral vascular accident) Mother CAD (coronary artery disease) Hx of CABG CHF (congestive heart failure) S/P MVR (mitral valve replacement) Brother COPD (chronic obstructive pulmonary disease) Diabetes Cancer lung Grandfather Colon cancer Social History household members: spouse Smoking Status: Former smoker how long ago did patient quit smokin alcohol intake: never substance use type: does not use caffeine: Yes (3 servings per day) what type of physical activity do you participate in: walking frequency: daily HPI HPI Chief Complaint: fu Details: NIKKO BARAJAS, is a 79 M who presents to the office today for ROS Const Constitutional: No body ache, excessive sweating, fatigue, fever(s), frequent falls, headache(s), snoring, weakness, weight change, sleep problems or change in appetite Eyes Eyes: No blurry vision, change in vision, eye pain or Light sensitivity ENT ENT: No abnormal hearing, ear or mastoid pain, tinnitus, nasal congestion, headache(s), neck pain or sore throat Resp Respiratory: No cough, shortness of breath, snoring or wheezing Cardio Cardiology: No chest pain at rest, chest pain with exertion, excessive sweating,shortness of breath, dyspnea on exertion, lightheadedness, orthopnea or palpitations Gastro GI: No abdominal pain, change in bowel habits, constipation, cramping, diarrhea,nausea/dyspepsia or vomiting Genitourinary Male: No burning urination, painful urination, urinary incontinence, urinary frequency or blood in urine Musc Musculoskeletal: No abnormal gait, joint pain, back pain, limited range of motion, neck pain, numbness, stiffness, tingling or Arthritis Skin Skin: No dry skin, redness, lesions, itchy eyes, rash or wounds Neuro Neurology: No abnormal gait, abnormal hearing, abnormal speech, dizziness, weakness, frequent falls, headache(s), memory loss, numbness or tingling Psych Psychiatric: No anxiety, No change in appetite, No depression, No memory loss and No Thoughts of harming yourself/Others Endo Endocrine: No cold intolerance, excessive sweating, fatigue, flushing, heat intolerance, increased thirst/drinking, increased hunger or weight change Aller/Imm Allergy/Immunologic: No itchy eyes, seasonal allergy symptoms, hives or wheezing Raúl/Lymp Hematologic/Lymphatic: No easy bleeding, easy bruising or enlarged lymph nodes Exam Const General: cooperative and healthy appearing Nutritional Appearance: average body habitus HENIA Head: normal to inspection Eyes General: appearance normal, both eyes and all related structures Neck Neck: normal visual inspection Thyroid: thyroid normal Chest Breast inspection: abnormal inspection of the breast (2 cm lump palpated on the right breast superficial, with some bruising.) right upper inner Resp Effort & Inspection: normal respiratory effort Auscultation: Bilateral: Clear to Auscultation Cardio Rate: regular rate Rhythm: regular rhythm GI Inspection: normal to inspection Skin General: no rashes or lesions noted Neuro General: patient alert Gait: normal gait Extrem General: normal to inspection Psych Judgment: judgment good Coding Level of Care Code Off vis,est,level 3 Diagnoses Atrial fibrillation I48.91 Breast lump in upper inner quadrant N63.0 Assessment and Plan Assessment and Plan (1) Atrial fibrillation: Status: Acute Plan: Patient has good rate control with his atrial fibrillation. (2) Breast lump in upper inner quadrant: Status: Acute Plan: This is a fairly firm lump and superficial with some evidence of bruising to theskin. He has no history of trauma to the chest and it feels more solid than a simple bruise would be so we will investigate this by doing an ultrasound. Orders: Orders Breast Limited Unilateral Today N63.0 - Unspecified lump in unspecified breast Cardiac Holter Monitor, 48 Hrs Today I48.91 - Unspecified atrial fibrillation Medications: Refilled ferrous sulfate 325 mg PO BID 180 TABLETS 1RF Plan Details Follow Up: 6 Months Clinical Quality Measures Falls Risk Screening/Assistive Devices Have you fallen in the past year?: No 08/31/24 1030 <Electronically signed by Santosh addison DO> Date _ Santosh Velazquez DO Cosigner Signature: Date (if applicable) CC: ~ [place] [employer] Phone: [phone] 844-347206-03-2025 History of Present illness Narrative* Ronnie Troy MD - 08/16/2024 2:15 PM EDT [facility] [place] Card[facility]/Electrophysiology New Patient Clinic Note Chief Complaint: Chief Complaint Patient presents with Coronary Artery Disease Atrial Fibrillation Sleep Apnea Hypertension Hyperlipidemia Carotid Artery Disease Congestive Heart Failure Systolic Hypothyroidism Claudication COPD History of Present Illness: Nikko Barajas is a 78 y.o. male referred here for the management of his atrial fibrillation. He is a pleasant 78-year-old man with a history of CAD status post stent to the LAD and circumflex in 2010 and a repeat PCI in March 2022 to the proximal LAD. In 2021 he had a left CEA and postop he had some A-fib for which she was put on amiodarone. At some point this was stopped because of abnormal PFTs. His LVEF had been preserved up until September 2023 by several echoes. He reports that he felt fine until the end of 2023 when he started experiencing more shortness of breath and fatigue with exertion. In March 2024 he presented to [facility] in A-fib with RVR and a newly depressed LVEF of 25%. He was rate controlled with metoprolol and given amiodarone, but not cardioverted. In May an echo showed a persistently low LVEF of 30% and he was cardioverted in June, but recurred within a few days. He was started on digoxin, and was also on Cardizem 120 mg daily in addition to metoprolol 100mg twice a day He presents today feeling fairly well. He reports that he has never felt palpitation with his atrial fibrillation, but clearly felt that he became more SOB/GARVIN in the fall 2023 compared to his baseline. He reports that since starting digoxin his heart rates have been in the 70s to 90s. This is confirmed by his Kardia strips which he does almost every day and all show heart rates less than 100 at rest. He denies chest pain, SOB/GARVIN, or LE edema since starting the Lasix. He is active around the yard and can do all of his ADLs without symptoms An ECG today shows atrial fibrillation with a VR of ~80 bpm. An echo in May 2024 shows an LVEF of30% with a severely enlarged LA (JOSEPH 75). The echo also shows moderately severe MR (3+, mild TR (PA P of 28 mmHg) and mild to moderate AoS. Assessment and Plan: 1. Persistent Atrial Fibrillation: As far as I can tell, he may have gone into persistent A-fib in late 2023 with a resultant low EF from rapid rates. However, now his heart rates appear well-controlled, and a tachycardia mediated cardiomyopathy could not be explained by these rates. I would recommend getting a 2-week Holter monitor and a repeat echo in October. This can be done in [place]. I willsee him after that. If his LVEF remains depressed, despite well- controlled heart rates, then we mayneed to look into other causes of LV dysfunction such as worsening CAD or his significant mitral regurgitation. For today, I increased his Cardizem to 180 mg daily despite his low LVEF. My hope is that with better rate control his LVEF will improve further into the near normal/normal range. If his 2-week Holter shows poorly controlled heart rates, then may be a PVI would be reasonable, though thesuccess rate is much lower given his severely enlarged LA. I will see him in November after those tests are done in [place] 2. Systolic Heart Failure: As above, likely tachycardia mediated, but it is possible that his mitral regurgitation is primary and the cause of his LV dysfunction. 3. CAD: This appears silent. No need for further workup at this point. Past Medical History: Medical History[1] Past Surgical History Surgical History[2] Family History Family History[3] Social History Social History[4] Medications: Reviewed Allergies: Reviewed Review of Systems: All other systems were reviewed and are negative other than as noted in the HPI. Physical Examination: Vitals: Blood pressure 122/60, pulse 83, height 5' 9 (1.753 m), weight 157 lb (71.2 kg), SpO2 99%. Constitutional: Appears well kept and looks stated age; in NAD Psychiatric: A &O x3 Mood is pleasant; Affect is appropriate Musculoskeletal: Normocephalic; no joint swelling; gait steady; 5/5 muscle strength bilaterally in upper and lower extremities; no clubbing or cyanosis HEENT: Pupils are equal and round; Conjunctiva are not injected; Sclera are non- icteric; Airway andNares are patent; Ears without external abnormalities. Mucosa is pink; Dentition is normal Neck: Supple; No JVD or Bruits; No thyromegaly; No lymphadenopathy Respiratory: Lungs are clear with no rales or wheezes. Respiratory effort is normal and symmetricalbilaterally; Good air movement bilaterally Heart: IRRR; Nl S1 and S2 2/6 aortic systolic murmur. 2/6 mitral regurgitation murmur. No crg Abdomen: NABS soft, non-tender, non-distended; no organomegaly; no obvious masses Extremities/Skin: Trace LE edema; Skin warm to touch and well perfused; skin discoloration is absent Neuro: sensation and motor function are grossly normal. Cranial Nerves are grossly intact Laboratory Tests: Reviewed from the [place] [facility] Ronnie Troy MD DATE of SERVICE: 08/16/2024 [1] Past Medical History: Diagnosis Date Acquired hypothyroidism 08/02/2024 Bilateral carotid artery stenosis 08/02/2024 Centrilobular emphysema (HCC) 08/02/2024 Claudication of both lower extremities (HCC) 08/02/2024 Coronary artery disease involving kake coronary artery of kake heart without angina pectoris 08/02/2024 Essential hypertension 08/02/2024 Mixed hyperlipidemia 08/02/2024 ORACIO on CPAP 08/02/2024 Paroxysmal atrial fibrillation (HCC) 08/02/2024 Prostate cancer (HCC) 08/02/2024 Systolic congestive heart failure with reduced left ventricular function, NYHA class 2 (HCC) 08/02/2024 [2] Past Surgical History: Procedure Laterality Date CAROTID ENDARTERECTOMY Left 2021 CAROTID ENDARTERECTOMY Right 2023 CIRCUMCISION (HISTORICAL) CORONARY ANGIOPLASTY WITH STENT PLACEMENT 03/21/2022 HERNIA REPAIR KNEE ARTHROPLASTY Left PROSTATE BIOPSY 03/23/2023 PTCA W/ STENT, INITIAL (HISTORICAL) 01/22/2011 TONSILLECTOMY [3] Family History Problem Relation Name Age of Onset Coronary artery disease Mother Stroke Father Cancer Brother [4] Social History Tobacco Use Smoking status: Former Types: Cigarettes Smokeless tobacco: Never Vaping Use Vaping status: Never Used Substance Use Topics Alcohol use: Never Drug use: Never documented in this [facility]06-03-2025 [facility] [address] [place] [id number] OFFICE VISIT Date of Service: 08/16/24952 MR#: [id number] Acct: [id number] Name: NIKKO BARAJAS Rep #: [id number] : 1945 From: Nazario eugene DO Age/Sex: 78/M Location[place] [facility] [place] Status: Signed Intake Vital Signs 02/18/24 09:54 08/12/24 09:40 08/16/24 09:54 Height 5 ft 9 in 5 ft 9 in 5 ft 9 in Weight: 157 lb 9 oz BMI 23.2 BP 129/69 H Blood Pressure Location Rt brachial Position Sitting Respiration 16 Pulse 85 Pulse Source Monitor Temp 97.9 F Temperature Source Temporal Artery Pulse Oximetry (%) 98 Oxygen Delivery Method room air Intake Visit Reasons: 6 MONTH F/U PROSTATE Is patient in pain?: No Allergies bee venom protein (honey bee) (bee stings) Allergy (Severe, Verified 08/16/24 10:02) Anaphylaxis venom-wasp protein Allergy (Severe, Verified 08/16/24 10:02) Anaphylaxis Medications ?Medication ?Instructions ?Recorded ?Confirmed ?Type clopidogrel 75 mg tablet (Plavix) 75 mg PO QDAY CLOTTI NG 05/22/17 08/16/24 History pantoprazole 40 mg tablet,delayed 40 mg PO QDAY GERD 0 05/22/17 08/16/24 History release albuterol sulfate 90 mcg/actuation 2 puff inhalation Q 6H PRN Wheezing 07/20/17 08/16/24 History aerosol inhaler (ProAir HFA) cholecalciferol (vitamin D3) 25 3,000 unit PO DAILY TAMIN 04/01/18 08/16/24 History mcg (1,000 unit) capsule tiotropium bromide 2.5 2 inh inhalation QAM COPD 08/16/24 History mcg/actuation mist for inhalation (Spiriva Respimat) apixaban 5 mg tablet (Eliquis) 5 mg PO BID BLOOD THINN ER 04/07/23 08/16/24 History levothyroxine 75 mcg capsule 75 mcg PO DAILY HYPOTHYRO ID 04/14/23 08/16/24 History potassium chloride 10 mEq 10 meq PO DAILY LOW POTASSIU M #90 08/11/23 08/16/24 Rx tablet,extended release TABLETS Handicap placard #1 ea 08/12/23 08/16/24 Rx nitroglycerin 0.4 mg sublingual 0.4 mg sublingual Q5-1 5M CHEST 08/12/23 08/16/24 Rx tablet PAIN #20 tabs atorvastatin 40 mg tablet 40 mg PO QHS HYPERLIPIDEMIA #90 09/29/23 08/16/24 Rx tabs allopurinol 300 mg tablet 300 mg PO QDAY GOUT #90 tabs 02/23/24 08/16/24 Rx digoxin 125 mcg (0.125 mg) tablet 125 mcg PO DAILY #90 tabs 05/03/24 08/16/24 Rx (Lanoxin) lisinopril 2.5 mg tablet 2.5 mg PO DAILY #90 tabs 08/16/24 Rx metoprolol succinate 100 mg 100 mg PO BID #180 tabs 08/16/24 Rx tablet,extended release 24 hr ferrous sulfate 325 mg (65 mg 325 mg PO BID #180 TABLE TS 06/14/24 08/16/24 Rx iron) tablet diltiazem HCl 120 mg 120 mg PO QAM #30 caps 06/2308/16/24 Rx capsule,extended release 24 hr furosemide 40 mg tablet 40 mg PO DAILY EDEMA #90 TAB LETS 06/30/24 08/16/24 Rx vit C 250 mg-vit E 90 mg-zinc 40 1 tab PO BID 06/30/24 08/16/24 History mg-copper 1 mj-pheypr-wjrevh capsule (PreserVision AREDS-2) Have you fallen in the past year?: No PFSH PFSH Medical History Acute exacerbation of chronic heart failure Atrial fibrillation with RVR Thyroid disease High cholesterol Back pain Former smoker CPAP (continuous positive airway pressure) dependence Sleep apnea Emphysema, unspecified History of pain when walking History of edema History of echocardiogram History of atrial fibrillation Primary malignant neoplasm of prostate with high risk of recurrence due to [place] score of 8 to 10and PSA greater than 20 Nocturia Spermatocele of epididymis Prostate cancer Dyslipidemia 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 Bilateral lower extremity edema Carotid artery disease Peripheral arterial disease Paroxysmal atrial fibrillation Claudication of both lower extremities Aortic valve stenosis Bradycardia FPC current use of amiodarone Phimosis Hypothyroidism Encounter for circumcision CAD (coronary artery disease) Wears hearing aid Wears glasses Wears dentures Cancer Ambulates with cane Gout Easy bruising Excessive bleeding History of hiatal hernia Gastric reflux Former smoker Shortness of breath on exertion Leg cramps History of heart attack History of stress test Cardiology follow-up encounter History of irregular heartbeat Chest pain Abnormal stress test Abnormal computed tomography of cecum and terminal ileum Testicular discomfort Right inguinal hernia Peripheral neuritis of left foot Carotid stenosis, bilateral Essential hypertension Arthritis Old myocardial infarction 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 COPD (chronic obstructive pulmonary disease) Hypertension Hyperlipidemia Home Medications ?Medication ?Instructions ?Recorded ?Last Taken ?Type clopidogrel 75 mg tablet (Plavix) 75 mg PO QDAY CLOTTI NG 05/22/17 11/08/23 History pantoprazole 40 mg tablet,delayed 40 mg PO QDAY GERD 0 05/22/17 07/05/24 History release albuterol sulfate 90 mcg/actuation 2 puff inhalation Q 6H PRN Wheezing 07/20/17 11/09/21 History aerosol inhaler (ProAir HFA) cholecalciferol (vitamin D3) 25 3,000 unit PO DAILY TAMIN 04/01/18 11/08/23 History mcg (1,000 unit) capsule tiotropium bromide 2.5 2 inh inhalation QAM COPD 11/09/23 History mcg/actuation mist for inhalation (Spiriva Respimat) apixaban 5 mg tablet (Eliquis) 5 mg PO BID BLOOD THINN ER 04/07/23 07/05/24 History levothyroxine 75 mcg capsule 75 mcg PO DAILY HYPOTHYRO ID 04/14/23 07/05/24 History potassium chloride 10 mEq 10 meq PO DAILY LOW POTARGENTINAIU M #90 08/11/23 11/08/23 Rx tablet,extended release TABLETS Handicap placard #1 ea 08/12/23 Unknown Rx nitroglycerin 0.4 mg sublingual 0.4 mg sublingual Q5-1 5M CHEST 08/12/23 Unknown Rx tablet PAIN #20 tabs atorvastatin 40 mg tablet 40 mg PO QHS HYPERLIPIDEMIA #90 09/29/23 11/08/23 Rx tabs allopurinol 300 mg tablet 300 mg PO QDAY GOUT #90 tabs 02/23/24 07/05/24 Rx digoxin 125 mcg (0.125 mg) tablet 125 mcg PO DAILY #90 tabs 05/03/24 07/05/24 Rx (Lanoxin) lisinopril 2.5 mg tablet 2.5 mg PO DAILY #90 tabs 07/05/24 Rx metoprolol succinate 100 mg 100 mg PO BID #180 tabs 07/05/24 Rx tablet,extended release 24 hr ferrous sulfate 325 mg (65 mg 325 mg PO BID #180 TABLE TS 06/14/24 Unknown Rx iron) tablet diltiazem HCl 120 mg 120 mg PO QAM #30 caps 06/2307/05/24 Rx capsule,extended release 24 hr furosemide 40 mg tablet 40 mg PO DAILY EDEMA #90 TAB LETS 06/30/24 Unknown Rx vit C 250 mg-vit E 90 mg-zinc 40 1 tab PO BID 06/30/24 Unknown History mg-copper 1 qx-yhygfz-zplosw capsule (PreserVision AREDS-2) Allergy/AdvReac Type Severity Reaction Status Date / Time bee venom protein (honey Allergy Severe Anaphylaxis Verified 08/16/24 10:02 bee) (bee stings) venom-wasp protein Allergy Severe Anaphylaxis Verified 08/16/24 10:02 Family History Father CVA (cerebral vascular accident) Mother CAD (coronary artery disease) Hx of CABG CHF (congestive heart failure) S/P MVR (mitral valve replacement) Brother COPD (chronic obstructive pulmonary disease) Diabetes Cancer lung Grandfather Colon cancer Surgical History History of skin graft History of coronary artery stent placement History of left-sided carotid endarterectomy H/O hernia repair Hx of circumcision Hx of prostate biopsy (~03/23/23) History of left-sided carotid endarterectomy Status post carotid endarterectomy History of cardiac catheterization H/O local excision of skin lesion History of brain surgery History of left knee surgery History of tonsillectomy Postsurgical percutaneous transluminal coronary angioplasty (PTCA) status (03/21/22) Presence of stent in coronary artery (~01/22/11) Social History household members: spouse Smoking Status: Former smoker how long ago did patient quit smokin alcohol intake: never substance use type: does not use caffeine: Yes (3 servings per day) what type of physical activity do you participate in: walking frequency: daily Diagnosis: Nikko Barajas is a 78 year-old male diagnosed with 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 From 06/08/2023 ? 07/16/2023 he completed definitive radiation therapy with ADT. History of Present Illness: 03/23/2023: Patient completed TRUS guided prostate biopsy.? Pathology demonstratedGleason 5+3 adenocarcinoma involving about 90% of 1/1 core in the right prostateapex, [place] 3+4 adenocarcinoma involving greater than 95% of 1/1 core in the right prostate mid, about 75% of 1/1 core within the right prostate base, about 60% of 1/1 core of the left prostate apex, and about 50% of 1/1 core the left prostate base, and [place] 3+3 adenocarcinoma involving about 70% of 1/1 core inthe left prostate mid 04/07/2023: Seen by urology, recommended radiation with ADT.? Initiated Eligaralyssa. 04/28/2023: PSMA PET scan was performed.? This demonstrated increased radiopharmaceutical concentration defined in the prostate gland to the right of midline for filling quantitative criteria for malignant transformation.? No other abnormalities are noted. 05/27/2023: MRI pelvis with and without contrast was performed.? This demonstrated infiltrative intermediate to low signal process at the midline of the right and left peripheral zones also demonstrating enhancement on the postcontrast study but no significant diffusion restriction is seen.? Parents category 4. From 06/08/2023 ? 07/16/2023: received definitive radiation therapy consisting of 7000 cGy delivered to the prostate and seminal vesicles and 5040 cGy delivered to the at risk pelvic lymph nodes all in 28 fractions. He was treated with a VMAT plan using 10 MV photons. Radiation Treatment History: 1) From 06/08/2023 ? 07/16/2023: received definitive radiation therapy consisting of 7000 cGy delivered to the prostate and seminal vesicles and 5040 cGy delivered to the at risk pelvic lymph nodes all in 28 fractions. He was treated with a VMAT plan using 10 MV photons. Interval History: Patient returns for follow-up approximately 13 months after completing definitive radiation therapy. He reports doing well overall. He does report having frequency and urgency less than half the time, weak stream less than 1 time in 5, and denies incomplete emptying, intermittency, straining. He does not have any episodes of nocturia on most nights. He is taking Lasix 40 mg/day which contributes to his frequency he believes but overall urinary function is very good. He denies leakage or incontinence. He completed ADT a couple monthsago and continues to have hot flashes and minor fatigue but otherwise doing well. He believes he did about 18 months of ADT. He does report intermittent constipation and diarrhea and does not really take any medications. Denies any recent hemorrhoid flares, occasional bleeding with wiping. Denies leakage or incontinence of stool. He denies cough, shortness ofbreath, chest pain, bone pain. He is staying relatively active in his daily life and completes all ADLs without any difficulty. He denies having other problems or concerns at this time. IPSS: 5 NAHID: 1 Review of Systems: A 12-point review of systems was completed and was negative except for what is noted in the HPI/Interval History and by the nurse. Physical Exam: Weight: 157 lbs 9 oz ECO KARNOFSKY SCORE: 70% CONSTITUTIONAL: Well-developed, well-nourished, and in no apparent distress. CARDIAC: Regular rate and rhythm. Normal S1, S2. No murmurs, rubs, or gallops. PULMONARY/CHEST: Lungs are clear to auscultation and percussion bilaterally. No wheezes, rhonchi, or crackles noted. No increased work of breathing. ABDOMINAL: Abdomen soft, non-tender, non-distended. No hepatomegaly. Normoactivebowel sounds in allfour quadrants. No guarding, rebound. BACK: Straight and aligned. No CVA tenderness. Axial skeleton non-tender to percussion. EXTREMITIES: Full range of motion in all four extremities. No evidence of edema. RAFA: Deferred PSYCHIATRIC: Appropriate mood and affect for the clinical situation. 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 From 06/08/2023 ? 07/16/2023 he completed definitive radiation therapy with ADT. ? Plan: Patient presents for follow-up approximately 13 months after completing definitive radiation therapy concurrent with ADT for high risk prostate cancer. He is doing well overall and has no signs or symptoms concerning for developmentof disease progression or metastatic disease. Urinary symptoms are m uch improvedand doing well. PSA completed 07/14/2024 is 0.06 down from his initial of 9.15 completed in February 2023. He completed 18 months of ADT and is now done. I recommended close observation of his PSA every 3 months. I will plan to have himreturn for routine follow-up in 3 months and he was instructed to call with any further questions or concerns in the interim. ? ? Thank you for allowing me to participate in the management and care of your patient. If I may answer any questions in the interim, please do not hesitate tocontact me at any time. ? Nazario Colby DO, MS Temp Recruiter, Department of Radiation Oncology [facility] Coding Level of Care Code Off vis,est,level 3 Diagnoses Primary malignant neoplasm of prostate with high risk of recurrence due to Yaya score of 8 to 10and PSA greater than 20 C61 08/16/24 1029 DO> Date _ Nazario Colby DO Cosigner Signature: Date (if applicable) CC: ~ [facility]04-22-2025 Procedure note [facility] Medical Records Department [address] [place] [address] Procedure Report 07/05/24 1258 MR#: [id number] Acct: [id number] Name: NIKKO BARAJAS Rep #:[id number] : 1945 78 From: Felipe Velazquez DO PCP: Dr. Santosh Velazquez, DO Status:[facility] Location: [facility] Procedures Pulmonary Pulmonary Procedures /Diagnostic Testin Con Sedation Non-invasive Procedural Procedure Information Date of Procedure: 07/05/24 Description of procedure: CONSCIOUS SEDATION REPORT DATE OF SERVICE: July 05, 2024 BRIEF HISTORY OF PRESENT ILLNESS: The patient is a 78-year-old male who [facility] due to underlying atrial fibrillation. The patient did report a known history of COPD along with obstructive sleep apnea, for which he is prescribed nocturnal CPAP therapy. He denied any prior anesthetic complications. The patient is systemically anticoagulated on Eliquis. His last surface echocardiogram demonstrated an ejectionfraction of approximately 25%. PHYSICAL EXAMINATION: VITAL SIGNS: Reviewed and were acceptable. GENERAL: The patient is a , in no apparent distress, speaking in full sentences. HEENT: Normocephalic, atraumatic. Mucous membranes are moist and pink. Good mouth opening noted. Trachea is midline. MPI CHEST: S1, S2 irregularly irregular. No murmurs, rubs or gallops were noted. LUNGS: Clear to auscultation bilaterally without appreciable wheezes, rales or rhonchi. ABDOMEN: Soft, nontender, nondistended. Positive bowel sounds. EXTREMITIES: There is no clubbing, cyanosis or edema. ASA Class: II DESCRIPTION OF PROCEDURE: After confirmation of informed consent, the patient's anesthesia plan was reviewed in detail. Etomidate was chosen. Risks and benefits were reviewed andthe patient agreed to proceed. At 1234, the patient was given 4 mg of etomidate. The patient achieved an appropriate level of sedation and was given a 200 joule synchronized cardioversion by Dr. Mcpherson at the bedside. This was successful in achieving normal sinus rhythm. The patient was monitored until 1247, at which time he reached his baseline mental status and function. The patient tolerated the procedure well. COMPLICATIONS: None ESTIMATED BLOOD LOSS: None RECOMMENDATIONS: Okay to recover in usual fashion. 07/05/24 1300 Cosigner Signature (if applicable): CC: Dr. Vaughn Mcpherson MD; Dr. Felipe Velazquez DO; Dr. Santosh Velazquez DO~ Signed [facility]04-22-2025 Procedure note [facility] Medical Records Department [address] [place] [address] Procedure Report 07/05/24 1239 MR#: [id number] Acct: [id number] Name: NIKKO BARAJAS Rep #:[id number] : 1945 78 From: Vaughn Mcpherson MD PCP: Dr. Santosh Velazquez DO Status:[facility] Location: [facility] Non-invasive Procedural Procedure Information Date of Procedure: 07/05/24 Pre-Procedure Diagnosis: Atrial fibrillation Post-Procedure Diagnosis: Same Procedure Performed:: DC cardioversion physical design engineer: No Procedure Time Out: 12:30 Procedure Start Time: 12:35 Procedure Stop Time: 12:40 Special Medications: 4 mg of intravenous etomidate Description of procedure: The patient was brought to cardiac catheterization lab in the postabsorptive nonsedated state. Informed consent was obtained. The patient was seen by Dr. Velazquez of the critical care division. Anteriorpads posterior pads were applied. The patient was then administered 4 mg of intravenous etomidate. 200 J of biphasic DC cardioversion energy were applied with prompt reversal to sinus rhythm. Patienttolerated the procedure well. Procedure findings: Successful DC cardioversion from atrial fibrillation to sinus rhythm. Follow-up as per office protocol. DC Lanoxin 07/05/24 1241 Cosigner Signature (if applicable): CC: Dr. Vaughn Mcpherson MD; Dr. Santosh Velazquez, DO~ Signed [facility]02-18-2025 Evaluation note* Diagnosis Onset Date Resolution Status Admit Date Atrial fibrillation acute 2024 9:36am Cardiac LV ejection fraction 21-30% acute May 03 025 9:36am Aortic valve stenosis chronic Feb ruary 2024 9:36am COPD (chronic obstructive pulmonary disease) chronic April 9:36am Postsurgical percutaneous transluminal coronary angioplasty (PTCA) status March 21, 2022 acute Apr l 2024 8:37am Aortic valve stenosis chronic Jun 8:37am Dyslipidemia chronic June 30, 2024 8:37am Essential hypertension chronic Ap ril 2024 8:37am Paroxysmal atrial fibrillation chronic June 30, 2024 8:37am Peripheral arterial disease chronic June 30, 2024 8:37am Carotid stenosis, bilateral resolved June 30, 2024 8:37am Postsurgical percutaneous transluminal coronary angioplasty (PTCA) status March 21, 2022 acute August 10, 2024 1:40pm Aortic valve stenosis chronic August 10, 2024 1:40pm Dyslipidemia chronic August 10 1:40pm Essential hypertension chronic Ma 2024 1:40pm Paroxysmal atrial fibrillation chronic August 10, 2024 1 :40pm Peripheral arterial disease chronic August 10, 2024 1 :40pm Carotid stenosis, bilateral resolved August 10, 2024 1 :40pm Primary malignant neoplasm of prostate with high risk of recurrence due to acute August 16 025 9:44am Atrial fibrillation acute August 31, 2024 9:41am Breast lump in upper inner quadrant acute August 31, 2024 9:41am [facility] Work Phone: 1(149) 622-973902-03-2025 Chief complaint+Reason for visit Narrative * Chief Complaint Admit Date Referral Order April 18, 2024 9 :14am WOUND April 19, 2024 9 :28am 30 AR S/P April 28, 2024 10:43am wch fu May 03, 2024 9:36am HF w/EF<35% or less May 19, 2024 9:45 am S/P CEA June 07, 2024 12: 37pm HF with EF<35% or less June 13, 2024 1:00pm UPDATE H&P (SEE NOTE) June 30, 2024 8 :37am AFIB July 05, 2024 10: 47am Atrial fibrillation July 05, 2024 12: 39pm Atrial fibrillation July 05, 2024 12: 58pm CLAUDICATION July 11, 2024 10: 42am HF with EF<35% or less July 13, 2024 1:00pm 1 W DCCV July 13, 2024 2:0 2pm HF with EF<35% or less August 10, 2024 1: 00pm 1 M FU August 10, 2024 1:40p m Reason for Visit Admit Date Postsurgical percutaneous tr ansluminal coronary angioplasty (PTCA) status April 28, 2024 10:43am Aortic valve stenosis April 28 10:43am Dyslipidemia April 28, 2024 10:43am Essential hypertension April 28 10:43am Paroxysmal atrial fibrillation April 28, 2024 10:43am Peripheral arterial disease April 10:43am Carotid stenosis, bilateral April 10:43am Atrial fibrillation May 03, 2024 9:36am Cardiac LV ejection fraction 21-30% [facility] 2024 9:36am Aortic valve stenosis May 03 9:36am COPD (chronic obstructive pulmonary dise ase) May 03, 2024 9:36am Postsurgical percutaneous tr ansluminal coronary angioplasty (PTCA) status June 30, 2024 8:37am Aortic valve stenosis June 30, 2024 8 :37am Dyslipidemia June 30, 2024 8:3 7am Essential hypertension June 30, 2024 8:37am Paroxysmal atrial fibrillation June 8:37am Peripheral arterial disease June 30, 2024 8:37am Carotid stenosis, bilateral June 30, 2024 8:37am Postsurgical percutaneous tr ansluminal coronary angioplasty (PTCA) status August 10, 2024 1:40pm Aortic valve stenosis August 10, 2024 1:4 0pm Dyslipidemia August 10, 2024 1:40p m Essential hypertension August 10, 2024 1: 40pm Paroxysmal atrial fibrillation August 10, 2024 1:40pm Peripheral arterial disease August 10 1:40pm Carotid stenosis, bilateral August 10 1:40pm [facility] Work Phone: 1(197) 772-546002-03-2025 Chief complaint+Reason for visit Narrative * Chief Complaint Admit Date Referral Order April 18, 2024 9 :14am WOUND April 19, 2024 9 :28am 30 AR S/P April 28, 2024 10:43am wch fu May 03, 2024 9:36am HF w/EF<35% or less May 19, 2024 9:45 am S/P CEA June 07, 2024 12: 37pm HF with EF<35% or less June 13, 2024 1:00pm UPDATE H&P (SEE NOTE) June 30, 2024 8 :37am AFIB July 05, 2024 10: 47am Atrial fibrillation July 05, 2024 12: 39pm Atrial fibrillation July 05, 2024 12: 58pm CLAUDICATION July 11, 2024 10: 42am HF with EF<35% or less July 13, 2024 1:00pm 1 W DCCV July 13, 2024 2:0 2pm HF with EF<35% or less August 10, 2024 1: 00pm 1 M FU August 10, 2024 1:40p m HF with EF<35% or less August 15, 2024 9: 21am 6 MONTH F/U PROSTATE August 16, 2024 9:44 am Reason for Visit Admit Date Postsurgical percutaneous tr ansluminal coronary angioplasty (PTCA) status April 28, 2024 10:43am Aortic valve stenosis April 28 10:43am Dyslipidemia April 28, 2024 10:43am Essential hypertension April 28 10:43am Paroxysmal atrial fibrillation April 28, 2024 10:43am Peripheral arterial disease April 10:43am Carotid stenosis, bilateral April 10:43am Atrial fibrillation May 03, 2024 9:36am Cardiac LV ejection fraction 21-30% Febr 2024 9:36am Aortic valve stenosis May 03 9:36am COPD (chronic obstructive pulmonary dise ase) May 03, 2024 9:36am Postsurgical percutaneous tr ansluminal coronary angioplasty (PTCA) status June 30, 2024 8:37am Aortic valve stenosis June 30, 2024 8 :37am Dyslipidemia June 30, 2024 8:3 7am Essential hypertension June 30, 2024 8:37am Paroxysmal atrial fibrillation June 8:37am Peripheral arterial disease June 30, 2024 8:37am Carotid stenosis, bilateral June 30, 2024 8:37am Postsurgical percutaneous tr ansluminal coronary angioplasty (PTCA) status August 10, 2024 1:40pm Aortic valve stenosis August 10, 2024 1:4 0pm Dyslipidemia August 10, 2024 1:40p m Essential hypertension August 10, 2024 1: 40pm Paroxysmal atrial fibrillation August 10, 2024 1:40pm Peripheral arterial disease August 10 1:40pm Carotid stenosis, bilateral August 10 1:40pm Primary malignant neoplasm o f prostate with high risk of recurrence due to August 16, 2024 9:44am [facility] Work Phone: 1(744) 744-909201-29-2025 [facility]01-25-2025 Evaluation note* Diagnosis Onset Date Resolution Status Admit Date LV dysfunction acute April 082024 10:17pm Acute exacerbation of chronic heart failure inactive April 082024 10:17pm Atrial fibrillation with RVR inactive April 08 10:17pm Postsurgical percutaneous transluminal coronary angioplasty (PTCA) status March 21, 2022 acute Febr 2024 10:43am Aortic valve stenosis chronic Feb ruary 2024 10:43am Dyslipidemia chronic April 10:43am Essential hypertension chronic Fe bruary 2024 10:43am Paroxysmal atrial fibrillation chronic April 28, 025 10:43am Peripheral arterial disease chronic April 28 025 10:43am Carotid stenosis, bilateral resolved April 28 025 10:43am Atrial fibrillation acute robyn2024 9:36am Cardiac LV ejection fraction 21-30% acute May 03 9:36am Aortic valve stenosis chronic Feb ruary 2024 9:36am COPD (chronic obstructive pulmonary disease) chronic April 9:36am Postsurgical percutaneous transluminal coronary angioplasty (PTCA) status March 21, 2022 acute Apri l 2024 8:37am Aortic valve stenosis chronic Apr il 2024 8:37am Dyslipidemia chronic June 30, 2024 8:37am Essential hypertension chronic Ap ril 2024 8:37am Paroxysmal atrial fibrillation chronic June 30, 2024 8:37am Peripheral arterial disease chronic June 30, 2024 8:37am Carotid stenosis, bilateral resolved June 30, 2024 8:37am [facility] Work Phone: 1(507) 790-409001-25-2025 Evaluation note* Diagnosis Onset Date Resolution Status Admit Date LV dysfunction acute April 082024 10:17pm Acute exacerbation of chronic heart failure inactive April 082024 10:17pm Atrial fibrillation with RVR inactive April 08 10:17pm Postsurgical percutaneous transluminal coronary angioplasty (PTCA) status March 21, 2022 acute Febr uary 2024 10:43am Aortic valve stenosis chronic Feb ruary 2024 10:43am Dyslipidemia chronic April 10:43am Essential hypertension chronic Fe bruary 2024 10:43am Paroxysmal atrial fibrillation chronic April 28 025 10:43am Peripheral arterial disease chronic April 28 025 10:43am Carotid stenosis, bilateral resolved April 28 025 10:43am Atrial fibrillation acute robyn2024 9:36am Cardiac LV ejection fraction 21-30% acute May 03 025 9:36am Aortic valve stenosis chronic Feb ruary 2024 9:36am COPD (chronic obstructive pulmonary disease) chronic April 9:36am Postsurgical percutaneous transluminal coronary angioplasty (PTCA) status March 21, 2022 acute Apri l 2024 8:37am Aortic valve stenosis chronic Apr il 17th, 2025 8:37am Dyslipidemia chronic June 30, 2024 8:37am Essential hypertension chronic Ap ril 2024 8:37am Paroxysmal atrial fibrillation chronic June 30, 2024 8:37am Peripheral arterial disease chronic June 30, 2024 8:37am Carotid stenosis, bilateral resolved June 30, 2024 8:37am Postsurgical percutaneous transluminal coronary angioplasty (PTCA) status March 21, 2022 acute August 10, 2024 1:40pm Aortic valve stenosis chronic August 10, 2024 1:40pm Dyslipidemia chronic August 10 1:40pm Essential hypertension chronic Ma 2024 1:40pm Paroxysmal atrial fibrillation chronic August 10, 2024 1 :40pm Peripheral arterial disease chronic August 10, 2024 1 :40pm Carotid stenosis, bilateral resolved August 10, 2024 1 :40pm [facility] Work Phone: 1(825) 225-906312-26-2024 Evaluation note* Diagnosis Onset Date Resolution Status Admit Date Claudication of both lower extremities acute March 10, 024 10:35am Carotid stenosis, bilateral resolved March 10 024 10:35am LV dysfunction acute April 082024 10:17pm Acute exacerbation of chronic heart failure inactive April 082024 10:17pm Atrial fibrillation with RVR inactive April 08 10:17pm Postsurgical percutaneous transluminal coronary angioplasty (PTCA) status March 21, 2022 acute uary 2024 10:43am Aortic valve stenosis chronic Feb ru2024 10:43am Dyslipidemia chronic April 10:43am Essential hypertension chronic Fe bruary 2024 10:43am Paroxysmal atrial fibrillation chronic April 28, 2 025 10:43am Peripheral arterial disease chronic April 28 2 025 10:43am Carotid stenosis, bilateral resolved April 28 025 10:43am Atrial fibrillation acute u robyn2024 9:36am Cardiac LV ejection fraction 21-30% acute May 03, 2 025 9:36am Aortic valve stenosis chronic Feb ruary 2024 9:36am COPD (chronic obstructive pulmonary disease) chronic April 9:36am Postsurgical percutaneous transluminal coronary angioplasty (PTCA) status March 21, 2022 acute Apri l 2024 8:37am Aortic valve stenosis chronic Apr il 2024 8:37am Dyslipidemia chronic June 30, 2024 8:37am Essential hypertension chronic Ap ril 2024 8:37am Paroxysmal atrial fibrillation chronic June 30, 2024 8:37am Peripheral arterial disease chronic June 30, 2024 8:37am Carotid stenosis, bilateral resolved June 30, 2024 8:37am [facility] Work Phone: 1(145) 131-734512-05-2024 Evaluation note* Diagnosis Onset Date Resolution Status Admit Date Primary malignant neoplasm of prostate with high risk of recurrence due to acute February 9:40am Claudication of both lower extremities acute March 10 10:35am Carotid stenosis, bilateral resolved March 10 10:35am LV dysfunction acute April 082024 10:17pm Acute exacerbation of chronic heart failure inactive April 082024 10:17pm Atrial fibrillation with RVR inactive April 08 10:17pm Postsurgical percutaneous transluminal coronary angioplasty (PTCA) status March 21, 2022 acute Febr uary 2024 10:43am Aortic valve stenosis chronic Feb ruary 2024 10:43am Dyslipidemia chronic April 10:43am Essential hypertension chronic Fe bruary 2024 10:43am Paroxysmal atrial fibrillation chronic April 28, 2 025 10:43am Peripheral arterial disease chronic April 28 10:43am Carotid stenosis, bilateral resolved April 28 025 10:43am Atrial fibrillation acute Febru robyn 2024 9:36am Cardiac LV ejection fraction 21-30% acute May 03 025 9:36am Aortic valve stenosis chronic Feb ruary 2024 9:36am COPD (chronic obstructive pulmonary disease) chronic April 9:36am [facility] Work Phone: 1([phone]) 812-167603-06-2024 Discharge summary Author Jam Cohen [facility] May 20, 2023 8:59am Note Date/Time May 20, 2023 8:59 am [facility] Medical Records Department [address] [place] [address] Instructions for Home/Discharge Instructions 05/20/23 0858 MR#: [id number] Acct: [id number] Name: NIKKO BARAJAS Rep #:[id number] : 1945 77 From: Jam Cohen MD PCP: Dr. Santosh Velazquez, DO Status:[facility] Discharge Instructions Diet Discharge Diet: No restrictions Activity Discharge Activity: Return to Normal Activity and May Not Drive (while taking narcotic pain medications.) Dressing / Incision Call your doctor if you observe: Fever of 101 or Higher Follow Up Care Please Follow Up With: Jam Cohen MD When: Call [phone] for an appointment Test Results: Test results from this visit will be discussed in further detail at your follow- up appointment, if applicable. Discharge Plan Admission Primary Reason for Your Visit: Gold markers and spacer gel Attending Provider: Jam Cohen Primary Care Provider: Santosh Velazquez Discharge Orders/Prescriptions Prescriptions: New ciprofloxacin HCl [Cipro] 500 mg tablet 500 mg PO BID Qty: 10 0RF Continued albuterol sulfate [ProAir HFA] 90 mcg/actuation HFA aerosol inhaler 2 puff INHALATION Q6H PRN (Reason: Wheezing) cholecalciferol (vitamin D3) 1,000 unit capsule 1,000 unit capsule 3,000 unit PO DAILY Spiriva Respimat 2.5 mcg/actuation mist 2 inh inhalation QAM nitroglycerin 0.4 mg tablet, sublingual 0.4 mg sublingual Q5-15M lisinopril 30 mg tablet 20 mg PO BID Eliquis 5 mg tablet 5 mg PO BID Patient Comments: SEE DR. DOWNEY potassium chloride 10 mEq capsule, extended release 10 meq PO DAILY furosemide [Lasix] 20 mg tablet 20 mg PO DAILY nifedipine 60 mg tablet extended release 60 mg PO DAILY levothyroxine 75 mcg capsule 75 mcg PO DAILY aspirin [Jas Low Dose Aspirin] 81 mg tablet,delayed release (DR/EC) 81 mg PO DAILY Patient Comments: START 05/15/[address] GALLEGO metoprolol tartrate 25 mg tablet 25 mg PO BID Patient Comments: TAKE 1 TABLET BY MOUTH TWICE A DAY FOR 90 DAYS atorvastatin 20 mg tablet 60 mg PO QHS Rx Instructions: TAKE 1 TABLET BY MOUTH EVERY DAY FOR CHOLESTEROL pantoprazole 40 mg tablet,delayed release (DR/EC) 40 mg PO QDAY clopidogrel [Plavix] 75 mg tablet 75 mg PO QDAY Patient Comments: SEE NOTES allopurinol 300 mg tablet 300 mg PO QDAY Qty: 90 1RF Referrals / Follow Up: Santosh Velazquez DO [Primary Care Provider] - Disposition Disposition (needs filled in before D/C Order can be placed): Home, Self Care 05/20/23 0859<Electronically signed by Jam Cohen MD>Jam Cohen MD CC: Dr. Santosh Velazquez, DO ~ Signed [facility] Work Phone: 1(878) 302-535703-06-2024 History and physical note Author Jam Cohen [facility] May 20, 2023 8:58am Note Date/Time May 20, 2023 8:58 am [facility] Medical Records Department [address] [place] [address] History & Physical Exam 05/20/23 0858 MR#: [id number] Acct: [id number] Name: NIKKO BARAJAS Rep #:[id number] : 1945 77 From: Jam Cohen MD PCP: Dr. 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 Back pain CAD (coronary artery disease) Cancer Cardiology follow-up encounter Carotid stenosis, bilateral Chest pain COPD (chronic obstructive pulmonary disease) CPAP (continuous positive airway pressure) dependence Easy bruising Emphysema, unspecified Essential hypertension Excessive bleeding Former smoker Former smoker Gastric reflux Gout High cholesterol History of atrial fibrillation History of echocardiogram History of edema History of heart attack History of hiatal hernia History of irregular heartbeat History of pain when walking History of stress test Hyperlipidemia Hypertension Leg cramps Nocturia Old myocardial infarction Phimosis Shortness of breath on exertion Sleep apnea Spermatocele of epididymis Thyroid disease Wears dentures Wears glasses Wears hearing aid Home Medications clopidogrel 75 mg tablet (Plavix) 75 mg PO QDAY CLOTTING 05/22/17 [History Last Taken 05/15/23] pantoprazole 40 mg tablet,delayed release 40 mg PO QDAY GERD 05/22/17 [History Last Taken 05/20/23] albuterol sulfate 90 mcg/actuation aerosol inhaler (ProAir HFA) 2 puff inhalation Q6H PRN Wheezing 07/20/17 [History Last Taken 11/09/21] cholecalciferol (vitamin D3) 25 mcg (1,000 unit) capsule 3,000 unit PO DAILY VITAMIN 04/01/18 [History Last Taken 11/10/21] tiotropium bromide 2.5 mcg/actuation mist for inhalation (Spiriva Respimat) 2 inh inhalation QAM COPD 01/23/21 [History Last Taken 11/11/21] nitroglycerin 0.4 mg sublingual tablet 0.4 mg sublingual Q5-15M 09/09/22 [History Last Taken Unknown] allopurinol 300 mg tablet 300 mg PO QDAY GOUT #90 tabs 01/29/23 [Rx Last Taken Unknown] apixaban 5 mg tablet (Eliquis) 5 mg PO BID 04/07/23 [History Last Taken 05/15/23] lisinopril 30 mg tablet 20 mg PO BID 04/07/23 [History Last Taken 05/20/23] furosemide 20 mg tablet (Lasix) 20 mg PO DAILY 04/14/23 [History Last Taken Unknown] levothyroxine 75 mcg capsule 75 mcg PO DAILY 04/14/23 [History Last Taken 05/20/23] nifedipine 60 mg tablet,extended release 60 mg PO DAILY 04/14/23 [History Last Taken 05/20/23] potassium chloride 10 mEq capsule,extended release 10 meq PO DAILY 04/14/23 [History Last Taken Unknown] aspirin 81 mg tablet,delayed release (Jas Low Dose Aspirin) 81 mg PO DAILY 05/12/23 [History Last Taken 05/19/23] atorvastatin 20 mg tablet 60 mg PO QHS 05/12/23 [History Last Taken Unknown] metoprolol tartrate 25 mg tablet 25 mg PO BID 05/12/23 [History Last Taken 05/19/23 22:00] ciprofloxacin HCl 500 mg tablet (Cipro) 500 mg PO BID #10 tabs 05/20/23 [Rx Last Taken Unknown] Allergy/AdvReac Type Severity Reaction Status Date / Time venom-wasp protein Allergy Severe Anaphylaxis Verified 05/20/23 08:13 Family History Father CVA (cerebral vascular accident) Mother CAD (coronary artery disease) Hx of CABG CHF (congestive heart failure) S/P MVR (mitral valve replacement) Brother COPD (chronic obstructive pulmonary disease) Diabetes Cancer lung Grandfather Colon cancer Surgical History (Updated 05/12/23 @ 11:34 by Precious Camacho) H/O hernia repair H/O local excision of skin lesion History of brain surgery History of cardiac catheterization History of coronary artery stent placement History of left knee surgery History of left-sided carotid endarterectomy History of tonsillectomy Hx of circumcision Hx of prostate biopsy (~03/23/23) Postsurgical percutaneous transluminal coronary angioplasty (PTCA) status (03/21/22) Presence of stent in coronary artery (~01/22/11) Status post carotid endarterectomy Social History Smoking Status: Former smoker how long ago did patient quit smokin alcohol intake: never substance use type: does not use caffeine: Yes (3 servings per day) what type of physical activity do you participate in: walking frequency: daily Vital Signs Vital Signs Vital Signs: 05/20/23 08:16 05/20/23 08:16 Temperature 98.4 F Temperature Source Temporal Pulse Rate 72 Respiratory Rate 16 Respiratory Pattern Normal Blood Pressure 117/56 L Blood Pressure Mean 76 Blood Pressure Source Monitor Blood Pressure Position Semi-Fowlers Blood Pressure Location Left Arm Pulse Ox 94 Oxygen Delivery Method Room Air Weight Weight: 84.368 kg Body Mass Index (BMI) 27.4 05/20/23 0858 <Electronically signed by Jam Cohen MD> Cosigner Signature (if applicable): CC: Dr. Santosh Velazquez DO; Dr. Jam Cohen MD~ Signed [facility] Work Phone: 1([phone]) 260-444503-06-2024 Procedure [facility] 03-27-2023 Procedure [facility]2023 Miscellaneous Notes* Telephone Encounter - Radha Dewayne - 06/26/2022 9:23 AM EDT Called Pt to schedule annual testing/follow up - Pt said he had surgery in Oct 2021 w/ [facility] on his carotid artery and does not need to be seen. [facility] Evaluation note* Diagnosis Onset Date Resolution Status Essential hypertension acute Hyperlipidemia acute Hypothyroidism acute Postsurgical percutaneous tr ansluminal coronary angioplasty (PTCA) status March 21, 2022 acute Atrial fibrillation acute Bradycardia acute Essential hypertension acute Hyperlipidemia acute FPC current use of amiodarone acute 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 Aortic valve stenosis acute Atrial fibrillation acute Bradycardia acute Essential hypertension acute Hyperlipidemia 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 Claudication of both lower extremities acute [facility] Work Phone: [phone]) 217-738701-06-2023 Evaluation note* Diagnosis Onset Date Resolution Status Postsurgical percutaneous tr ansluminal coronary angioplasty (PTCA) status March 21, 2022 acute Aortic valve stenosis chroni c Arthritis chronic COPD (chronic obstructive pulmonary disease) chronic Essential hypertension chron ic Bilateral lower extremity edema acute Aortic valve stenosis chroni c CAD (coronary artery disease) chronic Carotid artery disease chron ic COPD (chronic obstructive pulmonary disease) chronic Essential hypertension chron ic Paroxysmal atrial fibrillation chronic Peripheral arterial disease chronic Atherosclerosis of both lowe r extremities with intermittent claudication acute Bilateral lower extremity edema acute [facility] Work Phone: [phone] 168-934501-06-2023 Evaluation note* Diagnosis Onset Date Resolution Status Admit Date Postsurgical percutaneous transluminal coronary angioplasty (PTCA) status March 21, 2022 acute Febr uary 2024 10:43am Aortic valve stenosis chronic Feb ruary 2024 10:43am Dyslipidemia chronic April 10:43am Essential hypertension chronic Fe bruary 2024 10:43am Paroxysmal atrial fibrillation chronic April 28 025 10:43am Peripheral arterial disease chronic April 28 025 10:43am Carotid stenosis, bilateral resolved April 28 025 10:43am Atrial fibrillation acute 2024 9:36am Cardiac LV ejection fraction 21-30% acute May 03 9:36am Aortic valve stenosis chronic Feb ruary 2024 9:36am COPD (chronic obstructive pulmonary disease) chronic April 9:36am Postsurgical percutaneous transluminal coronary angioplasty (PTCA) status March 21, 2022 acute Apri l 2024 8:37am Aortic valve stenosis chronic Jun 8:37am Dyslipidemia chronic June 30, 2024 8:37am Essential hypertension chronic Ap ril 2024 8:37am Paroxysmal atrial fibrillation chronic June 30, 2024 8:37am Peripheral arterial disease chronic June 30, 2024 8:37am Carotid stenosis, bilateral resolved June 30, 2024 8:37am Postsurgical percutaneous transluminal coronary angioplasty (PTCA) status March 21, 2022 acute August 10, 2024 1:40pm Aortic valve stenosis chronic August 10, 2024 1:40pm Dyslipidemia chronic August 10 1:40pm Essential hypertension chronic Ma 2024 1:40pm Paroxysmal atrial fibrillation chronic August 10, 2024 1 :40pm Peripheral arterial disease chronic August 10, 2024 1 :40pm Carotid stenosis, bilateral resolved August 10, 2024 1 :40pm [facility] Work Phone: [phone]) 662-962901-06-2023 Evaluation note* Diagnosis Onset Date Resolution Status Admit Date Postsurgical percutaneous transluminal coronary angioplasty (PTCA) status March 21, 2022 acute ua2024 10:43am Aortic valve stenosis chronic Feb ruary 2024 10:43am Dyslipidemia chronic April 10:43am Essential hypertension chronic Fe bruary 2024 10:43am Paroxysmal atrial fibrillation chronic April 28 10:43am Peripheral arterial disease chronic April 28 10:43am Carotid stenosis, bilateral resolved April 28 10:43am Atrial fibrillation acute 2024 9:36am Cardiac LV ejection fraction 21-30% acute May 03 9:36am Aortic valve stenosis chronic Feb ruary 2024 9:36am COPD (chronic obstructive pulmonary disease) chronic April 9:36am Postsurgical percutaneous transluminal coronary angioplasty (PTCA) status March 21, 2022 acute Apri l 2024 8:37am Aortic valve stenosis chronic Apr il 2024 8:37am Dyslipidemia chronic June 30, 2024 8:37am Essential hypertension chronic Ap ril 2024 8:37am Paroxysmal atrial fibrillation chronic June 30, 2024 8:37am Peripheral arterial disease chronic June 30, 2024 8:37am Carotid stenosis, bilateral resolved June 30, 2024 8:37am Postsurgical percutaneous transluminal coronary angioplasty (PTCA) status March 21, 2022 acute August 10, 2024 1:40pm Aortic valve stenosis chronic August 10, 2024 1:40pm Dyslipidemia chronic August 10 1:40pm Essential hypertension chronic Ma y 2024 1:40pm Paroxysmal atrial fibrillation chronic August 10, 2024 1 :40pm Peripheral arterial disease chronic August 10, 2024 1 :40pm Carotid stenosis, bilateral resolved August 10, 2024 1 :40pm Primary malignant neoplasm of prostate with high risk of recurrence due to acute August 16, 025 9:[address]am [facility] Work Phone: [phone]) 591-317601-06-2023 Evaluation note* Diagnosis Onset Date Resolution Status Admit Date Postsurgical percutaneous transluminal coronary angioplasty (PTCA) status March 21, 2022 acute Apri l 2024 8:37am Aortic valve stenosis chronic Jun 8:37am Dyslipidemia chronic June 30, 2024 8:37am Essential hypertension chronic Ap ril 2024 8:37am Paroxysmal atrial fibrillation chronic June 30, 2024 8:37am Peripheral arterial disease chronic June 30, 2024 8:37am Carotid stenosis, bilateral resolved June 30, 2024 8:37am Postsurgical percutaneous transluminal coronary angioplasty (PTCA) status March 21, 2022 acute August 10, 2024 1:40pm Aortic valve stenosis chronic August 10, 2024 1:40pm Dyslipidemia chronic August 10 1:40pm Essential hypertension chronic Ma y 2024 1:40pm Paroxysmal atrial fibrillation chronic August 10, 2024 1:40pm Peripheral arterial disease chronic August 10, 2024 1:40pm Carotid stenosis, bilateral resolved August 10, 2024 1:40pm Primary malignant neoplasm of prostate with high risk of recurrence due to acute August 16 025 9:44am Atrial fibrillation acute August 31, 2024 9:41am Breast lump in upper inner quadrant acute August 31, 2024 9:41am [facility] Work Phone: [phone] Evaluation note* Diagnosis Onset Date Resolution Status Admit Date Postsurgical percutaneous transluminal coronary angioplasty (PTCA) status March 21, 2022 acute Apri l 2024 8:37am Aortic valve stenosis chronic Apr il 2024 8:37am Dyslipidemia chronic June 30, 2024 8:37am Essential hypertension chronic Ap ril 2024 8:37am Paroxysmal atrial fibrillation chronic June 30, 2024 8:37am Peripheral arterial disease chronic June 30, 2024 8:37am Carotid stenosis, bilateral resolved June 30, 2024 8:37am Postsurgical percutaneous transluminal coronary angioplasty (PTCA) status March 21, 2022 acute August 10, 2024 1:40pm Aortic valve stenosis chronic August 10, 2024 1:40pm Dyslipidemia chronic August 10 1:40pm Essential hypertension chronic Ma y 2024 1:40pm Paroxysmal atrial fibrillation chronic August 10, 2024 1:40pm Peripheral arterial disease chronic August 10, 2024 1:40pm Carotid stenosis, bilateral resolved August 10, 2024 1:40pm Primary malignant neoplasm of prostate with high risk of recurrence due to acute August 16 025 9:44am Atrial fibrillation acute August 31, 2024 9:41am Breast lump in upper inner quadrant acute August 31, 2024 9:41am Primary malignant neoplasm of prostate with high risk of recurrence due to acute October 17, 2024 9:42am [facility] Work Phone: [phone] Evaluation note* Diagnosis Onset Date Resolution Status Admit Date Postsurgical percutaneous transluminal coronary angioplasty (PTCA) status March 21, 2022 acute August 10, 2024 1:40pm Aortic valve stenosis chronic August 10, 2024 1:40pm Dyslipidemia chronic May 28th, 20 25 1:40pm Essential hypertension chronic Ma y 2024 1:40pm Paroxysmal atrial fibrillation chronic August 10, 2024 1:40pm Peripheral arterial disease chronic August 10, 2024 1:40pm Carotid stenosis, bilateral resolved August 10, 2024 1:40pm Primary malignant neoplasm of prostate with high risk of recurrence due to acute August 16 025 9:44am Atrial fibrillation acute August 31, 2024 9:41am Breast lump in upper inner quadrant acute August 31, 2024 9:41am Primary malignant neoplasm of prostate with high risk of recurrence due to acute October 17, 2024 9:42am [facility] Work Phone: [phone] 114-502101-06-2023 Evaluation note* Diagnosis Onset Date Resolution Status Admit Date Postsurgical percutaneous transluminal coronary angioplasty (PTCA) status March 21, 2022 acute August 10, 2024 1:40pm Aortic valve stenosis chronic August 10, 2024 1:40pm Dyslipidemia chronic August 10 1:40pm Essential hypertension chronic Ma y 2024 1:40pm Paroxysmal atrial fibrillation chronic August 10, 2024 1:40pm Peripheral arterial disease chronic August 10, 2024 1:40pm Carotid stenosis, bilateral resolved August 10, 2024 1:40pm Primary malignant neoplasm of prostate with high risk of recurrence due to acute August 16 025 9:44am Atrial fibrillation acute August 31, 2024 9:41am Breast lump in upper inner quadrant acute August 31, 2024 9:41am Primary malignant neoplasm of prostate with high risk of recurrence due to acute October 17, 2024 9:42am Postsurgical percutaneous transluminal coronary angioplasty (PTCA) status March 21, [address] 2024 10:44am Aortic valve stenosis chronic Oct ust 2024 10:44am Dyslipidemia chronic November 10, 2024 10:44am Essential hypertension chronic Au shirley 2024 10:44am Paroxysmal atrial fibrillation chronic November 10 10:44am Peripheral arterial disease chronic November 10, 2024 10:44am Carotid stenosis, bilateral resolved November 10, 2024 10:44am [facility] Work Phone: 1([phone]) 671-211101-06-2023 Evaluation note* Diagnosis Onset Date Resolution Status Admit Date Postsurgical percutaneous transluminal coronary angioplasty (PTCA) status March 21, 2022 acute August 10, 2024 1:40pm Aortic valve stenosis chronic August 10, 2024 1:40pm Dyslipidemia chronic August 10 1:40pm Essential hypertension chronic Ma 2024 1:40pm Paroxysmal atrial fibrillation chronic August 10, 2024 1:40pm Peripheral arterial disease chronic August 10, 2024 1:40pm Carotid stenosis, bilateral resolved August 10, 2024 1:40pm Primary malignant neoplasm of prostate with high risk of recurrence due to acute August 16, 025 9:44am Atrial fibrillation acute August 31, 2024 9:41am Breast lump in upper inner quadrant acute August 31, 2024 9:41am Primary malignant neoplasm of prostate with high risk of recurrence due to acute October 17, 2024 9:42am LV dysfunction acute October 10:44am Postsurgical percutaneous transluminal coronary angioplasty (PTCA) status March 21, [address] 2024 10:44am Aortic valve stenosis chronic Oct ust 2024 10:44am Dyslipidemia chronic November 10, 2024 10:44am Essential hypertension chronic Au shirley 2024 10:44am Paroxysmal atrial fibrillation chronic November 10 10:44am Peripheral arterial disease chronic November 10, 2024 10:44am Carotid stenosis, bilateral resolved November 10, 2024 10:44am [facility] Work Phone: 1(187) 343-900212-08-2022 Hospital Discharge instructions Additional Instructions We are starting you an an 81 mg Aspirin. You need to be on this for at least 30 days before stopping this. You will continue with your Eliquis and Plavix. You need to be on your Plavix for at least one year before it is stopped for any reason.[facility] Work Phone: 1(213) 348-845505-26-2022 NoteHNO ID: [id number] Author: Arabella Hamilton MD Service: ? Author Type: Physician Type: Progress Notes Filed: 08/08/2021 11:25 AM Note Text: Nikko Barajas is a 75 year old male presents for initial evaluation of carotid disease. Pt is a prior pt of [facility]. He is on plavix, asa, and statin. He saw [facility] 01/2021: Patient seen today in follow-up of [...] the patient was referred to Dr Dhruv Richard at [facility] by Dr Fatoumata Koroma for occlusion and stenosis of B carotids and requested he be seen [facility]. Dr Rcihard deferred mgmt to [facility] as he was already established here and pt did not want to come to [facility]. Pt had a recent US on 07/05/21 [...] Procedure Laterality Date - COLONOSCOPY AND POLYPECTOMY 2015 - INGUINAL HERNIA REPAIR HX Left w/Mesh [...] TABS One tablet by mouth daily ALLOPURINOL [id number] Shazia Perez RN 06-13-2010 [facility] ([id number]) - lisinopril (ZESTRIL, PRINIVIL) 20 mg tablet Take 20 mg by mouth once daily. - atorvastatin (LIPITOR) 40 mg tablet Take 40 mg by mouth once daily. - aspirin, enteric coated (ASPIRIN, ENTERIC COATED) 325 mg EC tablet aspirin ECOTRIN 325 MG TBEC One tablet by mouth da (more content not included)...[facility]08-24-2021 NoteHNO ID: [id number] Author: Rodrick Carter Service: ? 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 Carotid stenosis, bilateral chronic Essential hypertension chron ic Hyperlipidemia chronic Presence of stent in coronary artery January, chronic Abnormal computed tomography of cecum and terminal ileum acute Right inguinal hernia acute Testicular discomfort acute Carotid stenosis, bilateral chronic [facility] Work Phone: Evaluation note* Diagnosis Onset Date Resolution Status Abnormal computed tomography of cecum and terminal ileum acute Right inguinal hernia acute Testicular discomfort acute Carotid stenosis, bilateral chronic Right inguinal hernia acute Carotid stenosis, bilateral chronic COPD (chronic obstructive pulmonary disease) chronic Essential hypertension chron ic [facility] Work Phone: Evaluation note* Diagnosis Onset Date Resolution Status Abnormal computed tomography of cecum and terminal ileum acute Right inguinal hernia acute Testicular discomfort acute Carotid stenosis, bilateral chronic Right inguinal hernia acute Carotid stenosis, bilateral chronic COPD (chronic obstructive pulmonary disease) chronic Essential hypertension chron ic 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 Essential hypertension chron ic Hyperlipidemia [facility] Work Phone: Evaluation note* Diagnosis Onset Date Resolution Status Abnormal computed tomography of cecum and terminal ileum acute Right inguinal hernia acute Testicular discomfort acute Carotid stenosis, bilateral chronic Right inguinal hernia acute Carotid stenosis, bilateral chronic COPD (chronic obstructive pulmonary disease) chronic Essential hypertension chron ic 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 Essential hypertension chron ic Hyperlipidemia chronic Carotid stenosis, bilateral chronic [facility] Work Phone: Evaluation note* Diagnosis Onset Date Resolution Status Right inguinal hernia acute Carotid stenosis, bilateral chronic COPD (chronic obstructive pulmonary disease) chronic Essential hypertension chron ic 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 Essential hypertension chron ic Hyperlipidemia chronic Carotid stenosis, bilateral chronic Carotid stenosis, bilateral chronic Atrial fibrillation with RVR acute CAD (coronary artery disease) acute Status post carotid endarterectomy acute Carotid stenosis, bilateral chronic Essential hypertension chron ic Hyperlipidemia chronic Presence of stent in coronary artery January, [facility] Work Phone: Evaluation note* Diagnosis Onset Date Resolution Status Carotid stenosis, bilateral chronic Carotid stenosis, bilateral chronic Essential hypertension acute Hyperlipidemia acute Carotid stenosis, bilateral chronic Atrial fibrillation with RVR resolved Atrial fibrillation with RVR resolved Atrial fibrillation acute Essential hypertension acute Hyperlipidemia acute 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 Carotid stenosis, bilateral chronic Right inguinal hernia acute Testicular discomfort acute [facility] Work Phone: Evaluation note* Diagnosis Onset Date Resolution Status Essential hypertension acute Hyperlipidemia acute Atrial fibrillation with RVR resolved Carotid stenosis, bilateral resolved Atrial fibrillation with RVR resolved Atrial fibrillation acute Essential hypertension acute Hyperlipidemia acute 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 Carotid stenosis, bilateral resolved Right inguinal hernia acute Testicular discomfort acute Atrial fibrillation acute Essential hypertension acute Hypothyroidism acute Phimosis acute 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 COPD (chronic obstructive pulmonary disease) chronic Atrial fibrillation acute Essential hypertension acute Hyperlipidemia 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 [facility] Work Phone: evaluation note* Diagnosis Onset Date Resolution Status Atrial fibrillation acute Essential hypertension acute Hyperlipidemia acute 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 Carotid stenosis, bilateral resolved Right inguinal hernia acute Testicular discomfort acute Atrial fibrillation acute Essential hypertension acute Hypothyroidism acute Phimosis acute 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 COPD (chronic obstructive pulmonary disease) chronic Atrial fibrillation acute Essential hypertension acute Hyperlipidemia acute FPC current use of amiodarone acute 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 [facility] Work Phone: Evaluation note* Diagnosis Onset Date Resolution Status Right inguinal hernia acute Testicular discomfort acute Atrial fibrillation acute Essential hypertension acute Hypothyroidism acute Phimosis acute 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 COPD (chronic obstructive pulmonary disease) chronic Atrial fibrillation acute Essential hypertension acute Hyperlipidemia 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 Essential hypertension acute Hyperlipidemia acute Hypothyroidism acute Postsurgical percutaneous tr ansluminal coronary angioplasty (PTCA) status March 21, 2022 acute Atrial fibrillation acute Bradycardia acute Essential hypertension acute Hyperlipidemia acute FPC current use of amiodarone acute 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 [facility] Work Phone: Evaluation note* Diagnosis Onset Date Resolution Status Atrial fibrillation acute Essential hypertension acute Hypothyroidism acute Phimosis acute 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 COPD (chronic obstructive pulmonary disease) chronic Atrial fibrillation acute Essential hypertension acute Hyperlipidemia acute FPC current use of amiodarone acute 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 Essential hypertension acute Hyperlipidemia acute Hypothyroidism acute Postsurgical percutaneous tr ansluminal coronary angioplasty (PTCA) status March 21, 2022 acute Atrial fibrillation acute Bradycardia acute Essential hypertension acute Hyperlipidemia 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 [facility] Work Phone: Evaluation note* Diagnosis Onset Date Resolution Status Atrial fibrillation acute Essential hypertension acute Hyperlipidemia 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 Essential hypertension acute Hyperlipidemia acute Hypothyroidism acute Postsurgical percutaneous tr ansluminal coronary angioplasty (PTCA) status March 21, 2022 acute Atrial fibrillation acute Bradycardia acute Essential hypertension acute Hyperlipidemia 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 Aortic valve stenosis acute Atrial fibrillation acute Bradycardia acute Essential hypertension acute Hyperlipidemia acute FPC current use of amiodarone acute 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 [facility] Work Phone: Evaluation note* Diagnosis Onset Date Resolution Status Atrial fibrillation acute Bradycardia acute Hyperlipidemia 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 Aortic valve stenosis chroni c 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 Essential hypertension chron ic Claudication of both lower extremities acute Claudication of both lower extremities acute Postsurgical percutaneous tr ansluminal coronary angioplasty (PTCA) status March 21, 2022 acute Aortic valve stenosis chroni c Arthritis chronic COPD (chronic obstructive pulmonary disease) chronic Essential hypertension chron ic Bilateral lower extremity edema acute Aortic valve stenosis chroni c CAD (coronary artery disease) chronic Carotid artery disease chron ic COPD (chronic obstructive pulmonary disease) chronic Essential hypertension chron ic Paroxysmal atrial fibrillation chronic Peripheral arterial disease chronic Atherosclerosis of both lowe r extremities with intermittent claudication acute Bilateral lower extremity edema acute [facility] Work Phone: Evaluation note* Diagnosis Onset Date Resolution Status Atherosclerosis of both lowe r extremities with intermittent claudication acute History of left-sided carotid endarterectomy acute Bilateral lower extremity edema acute Aortic valve stenosis chroni c CAD (coronary artery disease) chronic Carotid artery disease chron ic COPD (chronic obstructive pulmonary disease) chronic Dyslipidemia chronic Essential hypertension chron ic Paroxysmal atrial fibrillation chronic Peripheral arterial disease chronic [facility] Work Phone: Evaluation note* Diagnosis Onset Date Resolution Status Atherosclerosis of both lowe r extremities with intermittent claudication acute History of left-sided carotid endarterectomy acute Bilateral lower extremity edema acute Aortic valve stenosis chroni c CAD (coronary artery disease) chronic Carotid artery disease chron ic COPD (chronic obstructive pulmonary disease) chronic Dyslipidemia chronic Essential hypertension chron ic Paroxysmal atrial fibrillation chronic Peripheral arterial disease chronic [id number] acute [facility] Work Phone: Evaluation note* Diagnosis Onset Date Resolution Status Atherosclerosis of both lowe r extremities with intermittent claudication acute History of left-sided carotid endarterectomy acute Bilateral lower extremity edema acute Aortic valve stenosis chroni c CAD (coronary artery disease) chronic Carotid artery disease chron ic COPD (chronic obstructive pulmonary disease) chronic Dyslipidemia chronic Essential hypertension chron ic Paroxysmal atrial fibrillation chronic Peripheral arterial disease chronic [id number] acute Carotid stenosis, bilateral resolved [facility] Work Phone: Evaluation note* Diagnosis Onset Date Resolution Status [id number] acute Carotid stenosis, bilateral resolved [id number] acute [id number] acute [id number] acute [id number] acute [id number] acute [id number] acute [facility] Work Phone: Evaluation noteNo assessment information available [facility] Work Phone: Evaluation note* Diagnosis Persistent atrial fibrillation (HCC)- Primary Atrial fibrillation Acquired hypothyroidism Unspecified hypothyroidism Mixed hyperlipidemia ORACIO on CPAP Centrilobular emphysema (HCC) Bilateral carotid artery stenosis Occlusion and stenosis of carotid artery without mention of cerebral infarction Coronary artery disease involving kake coronary artery of kake heart without angina pectoris Essential hypertension Unspecified essential hypertension Systolic congestive heart failure with reduced left ventricular function, NYHA class 2 (HCC) Prostate cancer (HCC) Malignant neoplasm of prostate Claudication of both lower extremities (HCC) [facility] Diagnosis Paroxysmal atrial fibrillation (HCC)- Primary Atrial fibrillation Persistent atrial fibrillation (HCC)- Primary Atrial fibrillation Coronary artery disease involving kake coronary artery of kake heart without angina pectoris Essential hypertension Unspecified essential hypertension Mixed hyperlipidemia Acquired hypothyroidism Unspecified hypothyroidism ORACIO on CPAP Centrilobular emphysema (HCC) Prostate cancer (HCC) Malignant neoplasm of prostate Systolic congestive heart failure with reduced left ventricular function, NYHA class 2 (HCC) Bilateral carotid artery stenosis Occlusion and stenosis of carotid artery without mention of cerebral infarction Claudication of both lower extremities (HCC) Nonrheumatic mitral valve regurgitation [facility] Diagnosis Systolic congestive heart failure with reduced left ventricular function, NYHA class 2 (HCC)- Primary Persistent atrial fibrillation (HCC) Atrial fibrillation Coronary artery disease involving kake coronary artery of kake heart without angina pectoris Essential hypertension Unspecified essential hypertension Mixed hyperlipidemia Acquired hypothyroidism Unspecified hypothyroidism ORACIO on CPAP Centrilobular emphysema (HCC) Prostate cancer (HCC) Malignant neoplasm of prostate Bilateral carotid artery stenosis Occlusion and stenosis of carotid artery without mention of cerebral infarction Claudication of both lower extremities (HCC) Nonrheumatic mitral valve regurgitation [facility]* Diagnosis Chronic systolic heart failure (HCC)- Primary Chronic systolic heart failure Cardiomyopathy, ischemic Other specified forms of chronic ischemic heart disease Chronic systolic heart failure (HCC) Chronic systolic heart failure Cardiomyopathy, ischemic Other specified forms of chronic ischemic heart disease Chronic systolic heart failure (HCC) Chronic systolic heart failure Cardiomyopathy, ischemic Other specified forms of chronic ischemic heart disease documented in this encounter [facility]* Diagnosis Chronic systolic heart failure (HCC)- Primary Chronic systolic heart failure Cardiomyopathy, ischemic Other specified forms of chronic ischemic heart disease Chronic systolic heart failure (HCC) Chronic systolic heart failure Cardiomyopathy, ischemic Other specified forms of chronic ischemic heart disease Chronic systolic heart failure (HCC) Chronic systolic heart failure Cardiomyopathy, ischemic Other specified forms of chronic ischemic heart disease [facility]* Diagnosis Chronic systolic heart failure (HCC)- Primary Chronic systolic heart failure Cardiomyopathy, ischemic Other specified forms of chronic ischemic heart disease [facility]* Diagnosis Chronic systolic heart failure (HCC) Chronic systolic heart failure Cardiomyopathy, ischemic Other specified forms of chronic ischemic heart disease Chronic systolic heart failure (HCC) Chronic systolic heart failure Cardiomyopathy, ischemic Other specified forms of chronic ischemic heart disease [facility] Diagnosis Chronic systolic heart failure (HCC)- Primary Chronic systolic heart failure Cardiomyopathy, ischemic Other specified forms of chronic ischemic heart disease Persistent atrial fibrillation (HCC) Atrial fibrillation Coronary artery disease involving kake coronary artery of kake heart without angina pectoris Essential hypertension Unspecified essential hypertension Acquired hypothyroidism Unspecified hypothyroidism Mixed hyperlipidemia ORACIO on CPAP Centrilobular emphysema (HCC) Bilateral carotid artery stenosis Occlusion and stenosis of carotid artery without mention of cerebral infarction Claudication of both lower extremities ICD (implantable cardioverter-defibrillator) in place Encounter for adjustment or management of cardiac device documented in this encounter [facility] Discharge instructions Additional Instructions Implant Used?: [facility] Work Phone: Progress note Author Nazario Colby [facility] Note Date/Time August 16, 2024 10:29 am [facility] [address] [address] OFFICE VISIT Date of Service: 08/16/2453 MR#: [id number] Acct: [id number] Name: NIKKO BARAJAS Rep #: [id number] : 1945 From: Nazario eugene DO Age/Sex: 78/M Location: [facility] [place] Status: Signed Intake Vital Signs 02/18/24 09:54 08/12/24 09:40 08/16/24 09:54 Height 5 ft 9 in 5 ft 9 in 5 ft 9 in Weight: 157 lb 9 oz BMI 23.2 BP 129/69 H Blood Pressure Location Rt brachial Position Sitting Respiration 16 Pulse 85 Pulse Source Monitor Temp 97.9 F Temperature Source Temporal Artery Pulse Oximetry (%) 98 Oxygen Delivery Method room air Intake Visit Reasons: 6 MONTH F/U PROSTATE Is patient in pain?: No Allergies bee venom protein (honey bee) (bee stings) Allergy (Severe, Verified 08/16/24 10:02) Anaphylaxis venom-wasp protein Allergy (Severe, Verified 08/16/24 10:02) Anaphylaxis Medications ?Medication ?Instructions ?Recorded ?Confirmed ?Type clopidogrel 75 mg tablet (Plavix) 75 mg PO QDAY CLOTTI NG 05/22/17 08/16/24 History pantoprazole 40 mg tablet,delayed 40 mg PO QDAY GERD 0 3/09/18 06/03/25 History release albuterol sulfate 90 mcg/actuation 2 puff inhalation Q 6H PRN Wheezing 07/20/17 08/16/24 History aerosol inhaler (ProAir HFA) cholecalciferol (vitamin D3) 25 3,000 unit PO DAILY TAMIN 04/01/18 08/16/24 History mcg (1,000 unit) capsule tiotropium bromide 2.5 2 inh inhalation QAM COPD 08/16/24 History mcg/actuation mist for inhalation (Spiriva Respimat) apixaban 5 mg tablet (Eliquis) 5 mg PO BID BLOOD THINN ER 04/07/23 08/16/24 History levothyroxine 75 mcg capsule 75 mcg PO DAILY HYPOTHYRO ID 04/14/23 08/16/24 History potassium chloride 10 mEq 10 meq PO DAILY LOW POTASSIU M #90 08/11/23 08/16/24 Rx tablet,extended release TABLETS Handicap placard #1 ea 08/12/23 08/16/24 Rx nitroglycerin 0.4 mg sublingual 0.4 mg sublingual Q5-1 5M CHEST 08/12/23 08/16/24 Rx tablet PAIN #20 tabs atorvastatin 40 mg tablet 40 mg PO QHS HYPERLIPIDEMIA #90 09/29/23 08/16/24 Rx tabs allopurinol 300 mg tablet 300 mg PO QDAY GOUT #90 tabs 02/23/24 08/16/24 Rx digoxin 125 mcg (0.125 mg) tablet 125 mcg PO DAILY #90 tabs 05/03/24 08/16/24 Rx (Lanoxin) lisinopril 2.5 mg tablet 2.5 mg PO DAILY #90 tabs 08/16/24 Rx metoprolol succinate 100 mg 100 mg PO BID #180 tabs 08/16/24 Rx tablet,extended release 24 hr ferrous sulfate 325 mg (65 mg 325 mg PO BID #180 TABLE TS 06/14/24 08/16/24 Rx iron) tablet diltiazem HCl 120 mg 120 mg PO QAM #30 caps 06/2308/16/24 Rx capsule,extended release 24 hr furosemide 40 mg tablet 40 mg PO DAILY EDEMA #90 TAB LETS 06/30/24 08/16/24 Rx vit C 250 mg-vit E 90 mg-zinc 40 1 tab PO BID 06/30/24 08/16/24 History mg-copper 1 [id number] capsule (PreserVision AREDS-2) Have you fallen in the past year?: No PFSH PFSH Medical History Acute exacerbation of chronic heart failure Atrial fibrillation with RVR Thyroid disease High cholesterol Back pain Former smoker CPAP (continuous positive airway pressure) dependence Sleep apnea Emphysema, unspecified History of pain when walking History of edema History of echocardiogram History of atrial fibrillation Primary malignant neoplasm of prostate with high risk of recurrence due to [place] score of 8 to 10 and PSA greater than 20 Nocturia Spermatocele of epididymis Prostate cancer Dyslipidemia 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 Bilateral lower extremity edema Carotid artery disease Peripheral arterial disease Paroxysmal atrial fibrillation Claudication of both lower extremities Aortic valve stenosis 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 Phimosis Hypothyroidism Encounter for circumcision CAD (coronary artery disease) Wears hearing aid Wears glasses Wears dentures Cancer Ambulates with cane Gout Easy bruising Excessive bleeding History of hiatal hernia Gastric reflux Former smoker Shortness of breath on exertion Leg cramps History of heart attack History of stress test Cardiology follow-up encounter History of irregular heartbeat Chest pain Abnormal stress test Abnormal computed tomography of cecum and terminal ileum Testicular discomfort Right inguinal hernia Peripheral neuritis of left foot Carotid stenosis, bilateral Essential hypertension Arthritis Old myocardial infarction 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 COPD (chronic obstructive pulmonary disease) Hypertension Hyperlipidemia Home Medications ?Medication ?Instructions ?Recorded ?Last Taken ?Type clopidogrel 75 mg tablet (Plavix) 75 mg PO QDAY CLOTTI NG 05/22/17 11/08/23 History pantoprazole 40 mg tablet,delayed 40 mg PO QDAY GERD 0 05/22/17 07/05/24 History release albuterol sulfate 90 mcg/actuation 2 puff inhalation Q 6H PRN Wheezing 07/20/17 11/09/21 History aerosol inhaler (ProAir HFA) cholecalciferol (vitamin D3) 25 3,000 unit PO DAILY TAMIN 04/01/18 11/08/23 History mcg (1,000 unit) capsule tiotropium bromide 2.5 2 inh inhalation QAM COPD 11/09/23 History mcg/actuation mist for inhalation (Spiriva Respimat) apixaban 5 mg tablet (Eliquis) 5 mg PO BID BLOOD THINN ER 04/07/23 07/05/24 History levothyroxine 75 mcg capsule 75 mcg PO DAILY HYPOTHYRO ID 04/14/23 07/05/24 History potassium chloride 10 mEq 10 meq PO DAILY LOW POTASSIU M #90 08/11/23 11/08/23 Rx tablet,extended release TABLETS Handicap placard #1 ea 08/12/23 Unknown Rx nitroglycerin 0.4 mg sublingual 0.4 mg sublingual Q5-1 5M CHEST 08/12/23 Unknown Rx tablet PAIN #20 tabs atorvastatin 40 mg tablet 40 mg PO QHS HYPERLIPIDEMIA #90 09/29/23 11/08/23 Rx tabs allopurinol 300 mg tablet 300 mg PO QDAY GOUT #90 tabs 02/23/24 07/05/24 Rx digoxin 125 mcg (0.125 mg) tablet 125 mcg PO DAILY #90 tabs 05/03/24 07/05/24 Rx (Lanoxin) lisinopril 2.5 mg tablet 2.5 mg PO DAILY #90 tabs 07/05/24 Rx metoprolol succinate 100 mg 100 mg PO BID #180 tabs 07/05/24 Rx tablet,extended release 24 hr ferrous sulfate 325 mg (65 mg 325 mg PO BID #180 TABLE TS 06/14/24 Unknown Rx iron) tablet diltiazem HCl 120 mg 120 mg PO QAM #30 caps 06/2307/05/24 Rx capsule,extended release 24 hr furosemide 40 mg tablet 40 mg PO DAILY EDEMA #90 TAB LETS 06/30/24 Unknown Rx vit C 250 mg-vit E 90 mg-zinc 40 1 tab PO BID 06/30/24 Unknown History mg-copper 1 [id number] capsule (PreserVision AREDS-2) Allergy/AdvReac Type Severity Reaction Status Date / Time bee venom protein (honey Allergy Severe Anaphylaxis Verified 08/16/24 10:02 bee) (bee stings) venom-wasp protein Allergy Severe Anaphylaxis Verified 08/16/24 10:02 Family History Father CVA (cerebral vascular accident) Mother CAD (coronary artery disease) Hx of CABG CHF (congestive heart failure) S/P MVR (mitral valve replacement) Brother COPD (chronic obstructive pulmonary disease) Diabetes Cancer lung Grandfather Colon cancer Surgical History History of skin graft History of coronary artery stent placement History of left-sided carotid endarterectomy H/O hernia repair Hx of circumcision Hx of prostate biopsy (~03/23/23) History of left-sided carotid endarterectomy Status post carotid endarterectomy History of cardiac catheterization H/O local excision of skin lesion History of brain surgery History of left knee surgery History of tonsillectomy Postsurgical percutaneous transluminal coronary angioplasty (PTCA) status (03/21/22) Presence of stent in coronary artery (~01/22/11) Social History household members: spouse Smoking Status: Former smoker how long ago did patient quit smokin alcohol intake: never substance use type: does not use caffeine: Yes (3 servings per day) what type of physical activity do you participate in: walking frequency: daily Diagnosis: Nikko Barajas is a 78 year-old male diagnosed with 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 From 06/08/2023 ? 07/16/2023 he completed definitive radiation therapy with ADT. History of Present Illness: 03/23/2023: Patient completed TRUS guided prostate biopsy.? Pathology demonstratedGleason 5+3 adenocarcinoma involving about 90% of 1/1 core in the right prostateapex, [place] 3+4 adenocarcinoma involving greater than 95% of 1/1 core in the right prostate mid, about 75% of 1/1 core within the right prostate base, about 60% of 1/1 core of the left prostate apex, and about 50% of 1/1 core the left prostate base, and [place] 3+3 adenocarcinoma involving about 70% of 1/1 core inthe left prostate mid 04/07/2023: Seen by urology, recommended radiation with ADT.? Initiated Padmini. 04/28/2023: PSMA PET scan was performed.? This demonstrated increased radiopharmaceutical concentration defined in the prostate gland to the right of midline for filling quantitative criteria for malignant transformation.? No other abnormalities are noted. 05/27/2023: MRI pelvis with and without contrast was performed.? This demonstrated infiltrative intermediate to low signal process at the midline of the right and left peripheral zones also demonstrating enhancement on the postcontrast study but no significant diffusion restriction is seen.? Parents category 4. From 06/08/2023 ? 07/16/2023: received definitive radiation therapy consisting of 7000 cGy delivered to the prostate and seminal vesicles and 5040 cGy delivered to the at risk pelvic lymph nodes all in 28 fractions. He was treated with a VMAT plan using 10 MV photons. Radiation Treatment History: 1) From 06/08/2023 ? 07/16/2023: received definitive radiation therapy consisting of 7000 cGy delivered to the prostate and seminal vesicles and 5040 cGy delivered to the at risk pelvic lymph nodes all in 28 fractions. He was treated with a VMAT plan using 10 MV photons. Interval History: Patient returns for follow-up approximately 13 months after completing definitive radiation therapy. He reports doing well overall. He does report having frequency and urgency less than half the time, weak stream less than 1 time in 5, and denies incomplete emptying, intermittency, straining. He does not have any episodes of nocturia on most nights. He is taking Lasix 40 mg/day which contributes to his frequency he believes but overall urinary function is very good. He denies leakage or incontinence. He completed ADT a couple monthsago and continues to have hot flashes and minor fatigue but otherwise doing well. He believes he did about 18 months of ADT. He does report intermittent constipation and diarrhea and does not really take any medications. Denies any recent hemorrhoid flares, occasional bleeding with wiping. Denies leakage or incontinence of stool. He denies cough, shortness of breath, chest pain, bone pain. He is staying relatively active in his daily life and completes all ADLs without any difficulty. He denies having other problems or concerns at this time. IPSS: 5 NAHID: 1 Review of Systems: A 12-point review of systems was completed and was negative except for what is noted in the HPI/Interval History and by the nurse. Physical Exam: Weight: 157 lbs 9 oz ECO KARNOFSKY SCORE: 70% CONSTITUTIONAL: Well-developed, well-nourished, and in no apparent distress. CARDIAC: Regular rate and rhythm. Normal S1, S2. No murmurs, rubs, or gallops. PULMONARY/CHEST: Lungs are clear to auscultation and percussion bilaterally. No wheezes, rhonchi, or crackles noted. No increased work of breathing. ABDOMINAL: Abdomen soft, non-tender, non-distended. No hepatomegaly. Normoactivebowel sounds in all four quadrants. No guarding, rebound. BACK: Straight and aligned. No CVA tenderness. Axial skeleton non-tender to percussion. EXTREMITIES: Full range of motion in all four extremities. No evidence of edema. RAFA: Deferred PSYCHIATRIC: Appropriate mood and affect for the clinical situation. 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 From 06/08/2023 ? 07/16/2023 he completed definitive radiation therapy with ADT. ? Plan: Patient presents for follow-up approximately 13 months after completing definitive radiation therapy concurrent with ADT for high risk prostate cancer. He is doing well overall and has no signs or symptoms concerning for developmentof disease progression or metastatic disease. Urinary symptoms are much improvedand doing well. PSA completed 07/14/2024 is 0.06 down from his initial of 9.15 completed in February 2023. He completed 18 months of ADT and is now done. I recommended close observation of his PSA every 3 months. [facility] and he was instructed to call with any further questions or concerns in the interim. ? ? Thank you for allowing me to participate in the management and care of your patient. If I may answer any questions in the interim, please do not hesitate tocontact me at any time. ? Nazario Colby DO, MS Temp Recruiter, Department of Radiation Oncology [facility] Coding Level of Care Code Off vis,est,level 3 Diagnoses Primary malignant neoplasm of prostate with high risk of recurrence due to [place] score of 8 to 10 and PSA greater than 20 C61 08/16/24 1029 <Electronically signed by Nazario Colby DO> Date _ Nazario Colby DO Cosigner Signature: Date (if applicable) CC: ~ [facility] Work Phone: Revirc for referral (narrative)No reason for referral information availableEmanate [facility] Work Phone: Reamqw for visit Narrative* Auth/Cert (Routine) Specialty Diagnoses / Procedures Referred By Contac t Referred To Contact Diagnoses Chronic systolic heart failure (HCC) Cardiomyopathy, ischemic Chronic systolic heart failure (HCC) [I50.22] Cardiomyopathy, ischemic [I25.5] Procedures Implant ICD Ulises Perdomo MD [address] [place] [id number] Phone: tel: fax: [facility] [address] [place] [id number] Phone: tel: Referral ID Status Reason Start Date Expiration Date Visits Re quested Visits Authorized [id number] 1 [facility] Chief Complaint and Reason for Visit Chief Complaint 9 m fu CAD ASHD RIGHT INGUINAL HERNIA Discuss surgery right inguinal hernia STENOSIS Reason for Visit Atherosclerotic hear t disease of kake coronary artery without angina pectoris Carotid stenosis, bilateral Essential hypertension Hyperlipidemia Presence of stent in coronary artery Abnormal computed tomography of cecum and terminal ileum Right inguinal hernia Testicular discomfort Carotid stenosis, bilateral Chief Complaint CAD ASHD RIGHT INGUINAL HERNIA Discuss surgery right inguinal hernia STENOSIS 3 M FU PALPATATIONS Reason for Visit Abnormal computed to mography of cecum and terminal ileum Right inguinal hernia Testicular discomfort Carotid stenosis, bilateral Right inguinal hernia Carotid stenosis, bilateral COPD (chronic obstructive pulmonary disease) Essential hypertension Chief Complaint RIGHT INGUINAL HERNI A Discuss surgery right inguinal hernia STENOSIS 3 M FU PALPATATIONS PRE-OP GARVIN PRE-OP GARVIN Reason for Visit Abnormal computed to mography of cecum and terminal ileum Right inguinal hernia Testicular discomfort Carotid stenosis, bilateral Right inguinal hernia Carotid stenosis, bilateral COPD (chronic obstructive pulmonary disease) Essential hypertension Chief Complaint RIGHT INGUINAL HERNI A Discuss surgery right inguinal hernia STENOSIS 3 M FU PALPATATIONS PRE-OP GARVIN PRE-OP GARVIN PER MMM ABN STRESS TEST ABN STRESS TEST Reason for Visit Abnormal computed to mography of cecum and terminal ileum Right inguinal hernia Testicular discomfort Carotid stenosis, bilateral Right inguinal hernia Carotid stenosis, bilateral COPD (chronic obstructive pulmonary disease) Essential hypertension 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 Essential hypertension Hyperlipidemia Chief Complaint RIGHT INGUINAL HERNI A Discuss surgery right inguinal hernia STENOSIS 3 M FU PALPATATIONS PRE-OP GARVIN PRE-OP GARVIN PER MMM ABN STRESS TEST ABN STRESS TEST BILATERAL CAROTID ARTERY Occlusion and stenosis of bilateral carotid arteri Reason for Visit Abnormal computed to mography of cecum and terminal ileum Right inguinal hernia Testicular discomfort Carotid stenosis, bilateral Right inguinal hernia Carotid stenosis, bilateral COPD (chronic obstructive pulmonary disease) Essential hypertension 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 Essential hypertension Hyperlipidemia Carotid stenosis, bilateral Chief Complaint 3 M FU PALPATATIONS PRE-OP GARVIN PRE-OP GARVIN PER MMM ABN STRESS TEST ABN STRESS TEST BILATERAL CAROTID ARTERY Occlusion and stenosis of bilateral carotid arteri discuss carotid surgery LT CAROTID LT CAROTID LT CAROTID LT CAROTID LT CAROTID LT CAROTID LT CAROTID LT CAROTID LT CAROTID LT CAROTID LT CAROTID LT CAROTID LT CAROTID LT CAROTID LT CAROTID LT CAROTID Reason for Visit Right inguinal herni a Carotid stenosis, bilateral COPD (chronic obstructive pulmonary disease) Essential hypertension 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 Essential hypertension Hyperlipidemia Carotid stenosis, bilateral Carotid stenosis, bilateral Atrial fibrillation with RVR CAD (coronary artery disease) Status post carotid endarterectomy Carotid stenosis, bilateral Essential hypertension Hyperlipidemia Presence of stent in coronary artery Chief Complaint BILATERAL CAROTID AR JEWEL Occlusion and stenosis of bilateral carotid arteri discuss carotid surgery LT CAROTID LT CAROTID LT CAROTID LT CAROTID LT CAROTID LT CAROTID LT CAROTID LT CAROTID LT CAROTID LT CAROTID LT CAROTID LT CAROTID LT CAROTID LT CAROTID LT CAROTID LT CAROTID LT CAROTID LT CAROTID LT CAROTID SURGERY FU - a-fib Post op Update H/P R Inguinal Hernia Surgery PRE OP LABS Reason for Visit Carotid stenosis, bi lateral Carotid stenosis, bilateral Essential hypertension Hyperlipidemia Carotid stenosis, bilateral Atrial fibrillation with RVR Atrial fibrillation with RVR Atrial fibrillation Essential hypertension Hyperlipidemia 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 Carotid stenosis, bilateral Right inguinal hernia Testicular discomfort Chief Complaint LT CAROTID LT CAROTID LT CAROTID LT CAROTID LT CAROTID LT CAROTID LT CAROTID LT CAROTID LT CAROTID LT CAROTID LT CAROTID LT CAROTID LT CAROTID LT CAROTID LT CAROTID LT CAROTID LT CAROTID LT CAROTID SURGERY a-fib Post op Update H/P R Inguinal Hernia Surgery PRE OP LABS 6 m fu 6 M FU E ORDERS flu shot Reason for Visit Essential hypertensi on Hyperlipidemia Atrial fibrillation with RVR Carotid stenosis, bilateral Atrial fibrillation with RVR Atrial fibrillation Essential hypertension Hyperlipidemia 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 Carotid stenosis, bilateral Right inguinal hernia Testicular discomfort Atrial fibrillation Essential hypertension Hypothyroidism Phimosis 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 COPD (chronic obstructive pulmonary disease) Atrial fibrillation Essential hypertension Hyperlipidemia FPC current use of amiodarone 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 Chief Complaint a-fib Post op Update H/P R Inguinal Hernia Surgery PRE OP LABS 6 m fu 6 M FU E ORDERS flu shot ABNORMAL STRESS, CAD Reason for Visit Atrial fibrillation Essential hypertension Hyperlipidemia 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 Carotid stenosis, bilateral Right inguinal hernia Testicular discomfort Atrial fibrillation Essential hypertension Hypothyroidism Phimosis 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 COPD (chronic obstructive pulmonary disease) Atrial fibrillation Essential hypertension Hyperlipidemia FPC current use of amiodarone 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 Chief Complaint Update H/P R Inguina l Hernia Surgery PRE OP LABS 6 m fu 6 M FU E ORDERS flu shot ABNORMAL STRESS, CAD [facility] CATH FU PTCA S/P PCI PTCA, ballooning of coronary vessel Reason for Visit Right inguinal herni a Testicular discomfort Atrial fibrillation Essential hypertension Hypothyroidism Phimosis 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 COPD (chronic obstructive pulmonary disease) Atrial fibrillation Essential hypertension Hyperlipidemia FPC current use of amiodarone 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 Essential hypertension Hyperlipidemia Hypothyroidism Postsurgical percutaneous transluminal coronary angioplasty (PTCA) status Atrial fibrillation Bradycardia Essential hypertension Hyperlipidemia terminal worker current use of amiodarone 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 Chief Complaint Update H/P R Inguina l Hernia Surgery PRE OP LABS 6 m fu 6 M FU E ORDERS flu shot ABNORMAL STRESS, CAD POST PCI [facility] CATH FU PTCA S/P PCI PTCA, ballooning of coronary vessel Reason for Visit Right inguinal herni a Testicular discomfort Atrial fibrillation Essential hypertension Hypothyroidism Phimosis 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 COPD (chronic obstructive pulmonary disease) Atrial fibrillation Essential hypertension Hyperlipidemia terminal worker current use of amiodarone 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 Essential hypertension Hyperlipidemia Hypothyroidism Postsurgical percutaneous transluminal coronary angioplasty (PTCA) status Atrial fibrillation Bradycardia Essential hypertension Hyperlipidemia FPC current use of amiodarone 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 Chief Complaint PRE OP LABS 6 m fu 6 M FU E ORDERS flu shot ABNORMAL STRESS, CAD POST PCI [facility] CATH FU PTCA S/P PCI PTCA, ballooning of coronary vessel PTCA, ballooning of coronary vessel BRADYCARDIA, A-FIB *MOODISPAW* Reason for Visit Atrial fibrillation Essential hypertension Hypothyroidism Phimosis 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 COPD (chronic obstructive pulmonary disease) Atrial fibrillation Essential hypertension Hyperlipidemia FPC current use of amiodarone 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 Essential hypertension Hyperlipidemia Hypothyroidism Postsurgical percutaneous transluminal coronary angioplasty (PTCA) status Atrial fibrillation Bradycardia Essential hypertension Hyperlipidemia FPC current use of amiodarone 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 Chief Complaint PRE OP LABS 6 m fu 6 M FU E ORDERS flu shot ABNORMAL STRESS, CAD POST PCI [facility] CATH FU PTCA S/P PCI PTCA, ballooning of coronary vessel BRADYCARDIA, A-FIB *MOODISPAW* . PTCA, ballooning of coronary vessel Reason for Visit Atrial fibrillation Essential hypertension Hypothyroidism Phimosis 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 COPD (chronic obstructive pulmonary disease) Atrial fibrillation Essential hypertension Hyperlipidemia FPC current use of amiodarone 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 Essential hypertension Hyperlipidemia Hypothyroidism Postsurgical percutaneous transluminal coronary angioplasty (PTCA) status Atrial fibrillation Bradycardia Essential hypertension Hyperlipidemia FPC current use of amiodarone 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 Chief Complaint 6 M FU E ORDERS flu shot ABNORMAL STRESS, CAD POST PCI [facility] CATH FU PTCA S/P PCI PTCA, ballooning of coronary vessel BRADYCARDIA, A-FIB *MOODISPAW* . PTCA, ballooning of coronary vessel 3 M FU PTCA, ballooning of coronary vessel Reason for Visit Atrial fibrillation Essential hypertension Hyperlipidemia FPC current use of amiodarone 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 Essential hypertension Hyperlipidemia Hypothyroidism Postsurgical percutaneous transluminal coronary angioplasty (PTCA) status Atrial fibrillation Bradycardia Essential hypertension Hyperlipidemia terminal worker current use of amiodarone 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 Aortic valve stenosis Atrial fibrillation Bradycardia Essential hypertension Hyperlipidemia terminal worker current use of amiodarone 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 Chief Complaint 6 M FU E ORDERS flu shot ABNORMAL STRESS, CAD POST PCI [facility] CATH FU PTCA S/P PCI PTCA, ballooning of coronary vessel BRADYCARDIA, A-FIB *MOODISPAW* . PTCA, ballooning of coronary vessel 3 M FU PTCA, ballooning of coronary vessel ADJUNCT PSYCHOLOGY PROFESSOR DRUG THERAPY SKILLED NURSING DRUG THERAPY PTCA, ballooning of coronary vessel Reason for Visit Atrial fibrillation Essential hypertension Hyperlipidemia terminal worker current use of amiodarone 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 Essential hypertension Hyperlipidemia Hypothyroidism Postsurgical percutaneous transluminal coronary angioplasty (PTCA) status Atrial fibrillation Bradycardia Essential hypertension Hyperlipidemia FPC current use of amiodarone 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 Aortic valve stenosis Atrial fibrillation Bradycardia Essential hypertension Hyperlipidemia terminal worker current use of amiodarone 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 Chief Complaint ABNORMAL STRESS, CAD POST PCI [facility] CATH FU PTCA S/P PCI PTCA, ballooning of coronary vessel BRADYCARDIA, A-FIB *MOODISPAW* . PTCA, ballooning of coronary vessel 3 M FU PTCA, ballooning of coronary vessel SKILLED NURSING DRUG THERAPY SKILLED NURSING DRUG THERAPY PAIN IN BOTH LEGS CLAUDICATION PTCA, ballooning of coronary vessel Reason for Visit Essential hypertensi on Hyperlipidemia Hypothyroidism Postsurgical percutaneous transluminal coronary angioplasty (PTCA) status Atrial fibrillation Bradycardia Essential hypertension Hyperlipidemia FPC current use of amiodarone 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 Aortic valve stenosis Atrial fibrillation Bradycardia Essential hypertension Hyperlipidemia FPC current use of amiodarone 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 Claudication of both lower extremities Chief Complaint 3 M FU PTCA, ballooning of coronary vessel ADJUNCT PSYCHOLOGY PROFESSOR DRUG THERAPY ADJUNCT PSYCHOLOGY PROFESSOR DRUG THERAPY PAIN IN BOTH LEGS CLAUDICATION PTCA, ballooning of coronary vessel DISCUSS RESULTS 6 M FU 6 M FU(Prev PFM) 8 WK FU INT LABS ZANDER, ADJUNCT PSYCHOLOGY PROFESSOR AMIODARONE USE, COPD *CHAVA* Reason for Visit Atrial fibrillation Bradycardia Hyperlipidemia terminal worker current use of amiodarone Aortic valve stenosis 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 Essential hypertension Claudication 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 Postsurgical percutaneous transluminal coronary angioplasty (PTCA) status Aortic valve stenosis Arthritis COPD (chronic obstructive pulmonary disease) Essential hypertension Bilateral lower extremity edema Aortic valve stenosis CAD (coronary artery disease) Carotid artery disease COPD (chronic obstructive pulmonary disease) Essential hypertension Paroxysmal atrial fibrillation Peripheral arterial disease 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 Bilateral lower extremity edema Chief Complaint 6 M FU 6 M FU(Prev PFM) 8 WK FU INT LABS ZANDER, ADJUNCT PSYCHOLOGY PROFESSOR AMIODARONE USE, COPD *CHAVA* S/P LEFT CEA Reason for Visit Postsurgical percuta neous transluminal coronary angioplasty (PTCA) status Aortic valve stenosis Arthritis COPD (chronic obstructive pulmonary disease) Essential hypertension Bilateral lower extremity edema Aortic valve stenosis CAD (coronary artery disease) Carotid artery disease COPD (chronic obstructive pulmonary disease) Essential hypertension Paroxysmal atrial fibrillation Peripheral arterial disease 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 Bilateral lower extremity edema Chief Complaint 6 M FU 6 M FU(Prev PFM) 8 WK FU INT LABS ZANDER, ADJUNCT PSYCHOLOGY PROFESSOR AMIODARONE USE, COPD *CHAVA* S/P LEFT CEA Occlusion and stenosis of bilateral carotid arteri Reason for Visit Postsurgical percuta neous transluminal coronary angioplasty (PTCA) status Aortic valve stenosis Arthritis COPD (chronic obstructive pulmonary disease) Essential hypertension Bilateral lower extremity edema Aortic valve stenosis CAD (coronary artery disease) Carotid artery disease COPD (chronic obstructive pulmonary disease) Essential hypertension Paroxysmal atrial fibrillation Peripheral arterial disease 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 Bilateral lower extremity edema Chief Complaint BENIGN PROSTATIC HYP ERPLASIA WITH LOWER URINARY TR 6 M FU 6 M FU/PREV PFM INT LABS ZANDER, SKILLED NURSING AMIODARONE USE, COPD *CHAVA* ZANDER, SKILLED NURSING AMIODARONE USE, COPD *CHAVA* Reason for Visit Atherosclerosis of b oth lower extremities with intermittent claudication History of left-sided carotid endarterectomy Bilateral lower extremity edema Aortic valve stenosis CAD (coronary artery disease) Carotid artery disease COPD (chronic obstructive pulmonary disease) Dyslipidemia Essential hypertension Paroxysmal atrial fibrillation Peripheral arterial disease Chief Complaint BENIGN PROSTATIC HYP ERPLASIA WITH LOWER URINARY TR 6 M FU 6 M FU/PREV PFM INT LABS ZANDER, ADJUNCT PSYCHOLOGY PROFESSOR AMIODARONE USE, COPD *CHAVA* AZNDER, ADJUNCT PSYCHOLOGY PROFESSOR AMIODARONE USE, COPD *CHAVA* New Patient consult- Prostate Disorder of arteries and arterioles, unspecified Reason for Visit Atherosclerosis of b ot lower extremities with intermittent claudication History of left-sided carotid endarterectomy Bilateral lower extremity edema Aortic valve stenosis CAD (coronary artery disease) Carotid artery disease COPD (chronic obstructive pulmonary disease) Dyslipidemia Essential hypertension Paroxysmal atrial fibrillation Peripheral arterial disease [id number] Chief Complaint BENIGN PROSTATIC HYP ERPLASIA WITH LOWER URINARY TR 6 M FU 6 M FU/PREV PFM INT LABS ZANDER, SKILLED NURSING AMIODARONE USE, COPD *CHAVA* ZANDER, SKILLED NURSING AMIODARONE USE, COPD *CHAVA* New Patient consult- Prostate Disorder of arteries and arterioles, unspecified CT SIM FOR RADIATION CAROTID Space OAR and veneer marker placement Reason for Visit Atherosclerosis of b [facility] lower extremities with intermittent claudication History of left-sided carotid endarterectomy Bilateral lower extremity edema Aortic valve stenosis CAD (coronary artery disease) Carotid artery disease COPD (chronic obstructive pulmonary disease) Dyslipidemia Essential hypertension Paroxysmal atrial fibrillation Peripheral arterial disease [id number] Carotid stenosis, bilateral Chief Complaint BENIGN PROSTATIC HYP ERPLASIA WITH LOWER URINARY TR 6 M FU 6 M FU/PREV PFM INT LABS ZANDER, SKILLED NURSING AMIODARONE USE, COPD *CHAVA* ZANDER, SKILLED NURSING AMIODARONE USE, COPD *CHAVA* New Patient consult- Prostate Disorder of arteries and arterioles, unspecified CAROTID Space OAR and veneer marker placement PROSTATE CANCER RADIATION Reason for Visit Atherosclerosis of b [facility] lower extremities with intermittent claudication History of left-sided carotid endarterectomy Bilateral lower extremity edema Aortic valve stenosis CAD (coronary artery disease) Carotid artery disease COPD (chronic obstructive pulmonary disease) Dyslipidemia Essential hypertension Paroxysmal atrial fibrillation Peripheral arterial disease [id number] Carotid stenosis, bilateral Chief Complaint New Patient consult- Prostate Disorder of arteries and arterioles, unspecified CAROTID Space OAR and veneer marker placement PROSTATE CANCER OTV OTV OTV OTV OTV OTV Amb Documentation RADIATION PSA Reason for Visit [id number] Carotid stenosis, bilateral [id number] Chief Complaint S/P LEFT CEA Occlusion and stenosis of bilateral carotid arteri BENIGN PROSTATIC HYPERPLASIA WITH LOWER URINARY TR Chief Complaint Admit Date 6 MONTH F/U PROSTATE February 18, 2024 9:40am 1 Y FU March 10, 2024 10:35am HYPOXIA, HF EXAC, PAF RVR April 08, 2024 10:17pm HYPOXIA, HF EXAC, PAF RVR April 09, 2024 10:07am HYPOXIA, HF EXAC, PAF RVR April 10, 2024 7:35am HYPOXIA, HF EXAC, PAF RVR April 10, 2024 5:23pm HYPOXIA, HF EXAC, PAF RVR April 11, 2024 3:07pm HYPOXIA, HF EXAC, PAF RVR April 11, 2024 6:11pm HYPOXIA, HF EXAC, PAF RVR April 12, 2024 11:15am HYPOXIA, HF EXAC, PAF RVR April 12, 2024 2:47pm HYPOXIA, HF EXAC, PAF RVR April 13, 2024 1:36pm Referral Order April 18, 2024 9 :14am WOUND April 19, 2024 9 :28am 30 AR S/P April 28, 2024 10:43am wch fu May 03, 2024 9:36am HF w/EF<35% or less May 19, 2024 9:45 am HF with EF<35% or less June 01, 2024 1:00pm Reason for Visit Admit Date Primary malignant neoplasm o f prostate with high risk of recurrence due to February 18, 2024 9:40am Claudication of both lower extremities D ecember 2023 10:35am Carotid stenosis, bilateral February 10:35am LV dysfunction April 08, 2024 1 0:17pm Acute exacerbation of chronic heart fail ure April 08, 2024 10:17pm Atrial fibrillation with RVR March 10:17pm Postsurgical percutaneous tr ansluminal coronary angioplasty (PTCA) status April 28, 2024 10:43am Aortic valve stenosis April 28 10:43am Dyslipidemia April 28, 2024 10:43am Essential hypertension April 28 10:43am Paroxysmal atrial fibrillation April 28, 2024 10:43am Peripheral arterial disease April 10:43am Carotid stenosis, bilateral April 10:43am Atrial fibrillation May 03, 2024 9:36am Cardiac LV ejection fraction 21-30% Febr uary 2024 9:36am Aortic valve stenosis May 03 9:36am COPD (chronic obstructive pulmonary dise ase) May 03, 2024 9:36am Chief Complaint Admit Date 6 MONTH F/U PROSTATE February 18, 2024 9:40am 1 Y FU March 10, 2024 10:35am HYPOXIA, HF EXAC, PAF RVR April 08, 2024 10:17pm HYPOXIA, HF EXAC, PAF RVR April 09, 2024 10:07am HYPOXIA, HF EXAC, PAF RVR April 10, 2024 7:35am HYPOXIA, HF EXAC, PAF RVR April 10, 2024 5:23pm HYPOXIA, HF EXAC, PAF RVR April 11, 2024 3:07pm HYPOXIA, HF EXAC, PAF RVR April 11, 2024 6:11pm HYPOXIA, HF EXAC, PAF RVR April 12, 2024 11:15am HYPOXIA, HF EXAC, PAF RVR April 12, 2024 2:47pm HYPOXIA, HF EXAC, PAF RVR April 13, 2024 1:36pm Referral Order April 18, 2024 9 :14am WOUND April 19, 2024 9 :28am 30 AR S/P April 28, 2024 10:43am wch fu May 03, 2024 9:36am HF w/EF<35% or less May 19, 2024 9:45 am HF with EF<35% or less June 03, 2024 1:00pm Chief Complaint Admit Date 6 MONTH F/U PROSTATE February 18, 2024 9:40am 1 Y FU March 10, 2024 10:35am HYPOXIA, HF EXAC, PAF RVR April 08, 2024 10:17pm HYPOXIA, HF EXAC, PAF RVR April 09, 2024 10:07am HYPOXIA, HF EXAC, PAF RVR April 10, 2024 7:35am HYPOXIA, HF EXAC, PAF RVR April 10, 2024 5:23pm HYPOXIA, HF EXAC, PAF RVR April 11, 2024 3:07pm HYPOXIA, HF EXAC, PAF RVR April 11, 2024 6:11pm HYPOXIA, HF EXAC, PAF RVR April 12, 2024 11:15am HYPOXIA, HF EXAC, PAF RVR April 12, 2024 2:47pm HYPOXIA, HF EXAC, PAF RVR April 13, 2024 1:36pm Referral Order April 18, 2024 9 :14am WOUND April 19, 2024 9 :28am 30 AR S/P April 28, 2024 10:43am wch fu May 03, 2024 9:36am HF w/EF<35% or less May 19, 2024 9:45 am HF with EF<35% or less June 03, 2024 1:00pm S/P CEA June 07, 2024 12: 37pm Chief Complaint Admit Date 6 MONTH F/U PROSTATE February 18, 2024 9:40am 1 Y FU March 10, 2024 10:35am HYPOXIA, HF EXAC, PAF RVR April 08, 2024 10:17pm HYPOXIA, HF EXAC, PAF RVR April 09, 2024 10:07am HYPOXIA, HF EXAC, PAF RVR April 10, 2024 7:35am HYPOXIA, HF EXAC, PAF RVR April 10, 2024 5:23pm HYPOXIA, HF EXAC, PAF RVR April 11, 2024 3:07pm HYPOXIA, HF EXAC, PAF RVR April 11, 2024 6:11pm HYPOXIA, HF EXAC, PAF RVR April 12, 2024 11:15am HYPOXIA, HF EXAC, PAF RVR April 12, 2024 2:47pm HYPOXIA, HF EXAC, PAF RVR April 13, 2024 1:36pm Referral Order April 18, 2024 9 :14am WOUND April 19, 2024 9 :28am 30 AR S/P April 28, 2024 10:43am wch fu May 03, 2024 9:36am HF w/EF<35% or less May 19, 2024 9:45 am S/P CEA June 07, 2024 12: 37pm HF with EF<35% or less June 13, 2024 1:00pm Chief Complaint Admit Date 1 Y FU March 10, 2024 10:35am HYPOXIA, HF EXAC, PAF RVR April 08, 2024 10:17pm HYPOXIA, HF EXAC, PAF RVR April 09, 2024 10:07am HYPOXIA, HF EXAC, PAF RVR April 10, 2024 7:35am HYPOXIA, HF EXAC, PAF RVR April 10, 2024 5:23pm HYPOXIA, HF EXAC, PAF RVR April 11, 2024 3:07pm HYPOXIA, HF EXAC, PAF RVR April 11, 2024 6:11pm HYPOXIA, HF EXAC, PAF RVR April 12, 2024 11:15am HYPOXIA, HF EXAC, PAF RVR April 12, 2024 2:47pm HYPOXIA, HF EXAC, PAF RVR April 13, 2024 1:36pm Referral Order April 18, 2024 9 :14am WOUND April 19, 2024 9 :28am 30 AR S/P April 28, 2024 10:43am wch fu May 03, 2024 9:36am HF w/EF<35% or less May 19, 2024 9:45 am S/P CEA June 07, 2024 12: 37pm HF with EF<35% or less June 13, 2024 1:00pm UPDATE H&P (SEE NOTE) June 30, 2024 8 :37am HF with EF<35% or less July 04, 2024 1:00pm AFIB July 05, 2024 10: 47am Atrial fibrillation July 05, 2024 12: 39pm Atrial fibrillation July 05, 2024 12: 58pm Reason for Visit Admit Date Claudication of both lower extremities D ecember 2023 10:35am Carotid stenosis, bilateral February 10:35am LV dysfunction April 08, 2024 1 0:17pm Acute exacerbation of chronic heart fail ure April 08, 2024 10:17pm Atrial fibrillation with RVR March 10:17pm Postsurgical percutaneous tr ansluminal coronary angioplasty (PTCA) status April 28, 2024 10:43am Aortic valve stenosis April 28 10:43am Dyslipidemia April 28, 2024 10:43am Essential hypertension April 28 10:43am Paroxysmal atrial fibrillation April 28, 2024 10:43am Peripheral arterial disease April 10:43am Carotid stenosis, bilateral April 10:43am Atrial fibrillation May 03, 2024 9:36am Cardiac LV ejection fraction 21-30% Febr ry 2024 9:36am Aortic valve stenosis May 03 9:36am COPD (chronic obstructive pulmonary dise ase) May 03, 2024 9:36am Postsurgical percutaneous tr ansluminal coronary angioplasty (PTCA) status June 30, 2024 8:37am Aortic valve stenosis June 30, 2024 8 :37am Dyslipidemia June 30, 2024 8:3 7am Essential hypertension June 30, 2024 8:37am Paroxysmal atrial fibrillation June 8:37am Peripheral arterial disease June 30, 2024 8:37am Carotid stenosis, bilateral June 30, 2024 8:37am Chief Complaint Admit Date HYPOXIA, HF EXAC, PAF RVR April 08, 2024 10:17pm HYPOXIA, HF EXAC, PAF RVR April 09, 2024 10:07am HYPOXIA, HF EXAC, PAF RVR April 10, 2024 7:35am HYPOXIA, HF EXAC, PAF RVR April 10, 2024 5:23pm HYPOXIA, HF EXAC, PAF RVR April 11, 2024 3:07pm HYPOXIA, HF EXAC, PAF RVR April 11, 2024 6:11pm HYPOXIA, HF EXAC, PAF RVR April 12, 2024 11:15am HYPOXIA, HF EXAC, PAF RVR April 12, 2024 2:47pm HYPOXIA, HF EXAC, PAF RVR April 13, 2024 1:36pm Referral Order April 18, 2024 9 :14am WOUND April 19, 2024 9 :28am 30 AR S/P April 28, 2024 10:43am wch fu May 03, 2024 9:36am HF w/EF<35% or less May 19, 2024 9:45 am S/P CEA June 07, 2024 12: 37pm HF with EF<35% or less June 13, 2024 1:00pm UPDATE H&P (SEE NOTE) June 30, 2024 8 :37am AFIB July 05, 2024 10: 47am Atrial fibrillation July 05, 2024 12: 39pm Atrial fibrillation July 05, 2024 12: 58pm CLAUDICATION July 11, 2024 10: 42am HF with EF<35% or less July 13, 2024 1:00pm 1 W DCCV July 13, 2024 2:0 2pm HF with EF<35% or less July 18, 2024 1:0 0pm Reason for Visit Admit Date LV dysfunction April 08, 2024 1 0:17pm Acute exacerbation of chronic heart fail ure April 08, 2024 10:17pm Atrial fibrillation with RVR March 10:17pm Postsurgical percutaneous tr ansluminal coronary angioplasty (PTCA) status April 28, 2024 10:43am Aortic valve stenosis April 28 10:43am Dyslipidemia April 28, 2024 10:43am Essential hypertension April 28 10:43am Paroxysmal atrial fibrillation April 28, 2024 10:43am Peripheral arterial disease April 10:43am Carotid stenosis, bilateral April 10:43am Atrial fibrillation May 03, 2024 9:36am Cardiac LV ejection fraction 21-30% Febr uary 2024 9:36am Aortic valve stenosis May 03 9:36am COPD (chronic obstructive pulmonary dise ase) May 03, 2024 9:36am Postsurgical percutaneous tr ansluminal coronary angioplasty (PTCA) status June 30, 2024 8:37am Aortic valve stenosis June 30, 2024 8 :37am Dyslipidemia June 30, 2024 8:3 7am Essential hypertension June 30, 2024 8:37am Paroxysmal atrial fibrillation June 8:37am Peripheral arterial disease June 30, 2024 8:37am Carotid stenosis, bilateral June 30, 2024 8:37am Chief Complaint Admit Date HYPOXIA, HF EXAC, PAF RVR April 08, 2024 10:17pm HYPOXIA, HF EXAC, PAF RVR April 12, 2024 11:15am HYPOXIA, HF EXAC, PAF RVR April 12, 2024 2:47pm HYPOXIA, HF EXAC, PAF RVR April 13, 2024 1:36pm Referral Order April 18, 2024 9 :14am WOUND April 19, 2024 9 :28am 30 AR S/P April 28, 2024 10:43am wch fu May 03, 2024 9:36am HF w/EF<35% or less May 19, 2024 9:45 am S/P CEA June 07, 2024 12: 37pm HF with EF<35% or less June 13, 2024 1:00pm UPDATE H&P (SEE NOTE) June 30, 2024 8 :37am AFIB July 05, 2024 10: 47am Atrial fibrillation July 05, 2024 12: 39pm Atrial fibrillation July 05, 2024 12: 58pm CLAUDICATION July 11, 2024 10: 42am HF with EF<35% or less July 13, 2024 1:00pm 1 W DCCV July 13, 2024 2:0 2pm HF with EF<35% or less August 10, 2024 1: 00pm 1 M FU August 10, 2024 1:40p m Reason for Visit Admit Date LV dysfunction April 08, 2024 1 0:17pm Acute exacerbation of chronic heart fail ure April 08, 2024 10:17pm Atrial fibrillation with RVR March 10:17pm Postsurgical percutaneous tr ansluminal coronary angioplasty (PTCA) status April 28, 2024 10:43am Aortic valve stenosis April 28 10:43am Dyslipidemia April 28, 2024 10:43am Essential hypertension April 28 10:43am Paroxysmal atrial fibrillation April 28, 2024 10:43am Peripheral arterial disease April 10:43am Carotid stenosis, bilateral April 10:43am Atrial fibrillation May 03, 2024 9:36am Cardiac LV ejection fraction 21-30% Febr uary 2024 9:36am Aortic valve stenosis May 03 9:36am COPD (chronic obstructive pulmonary dise ase) May 03, 2024 9:36am Postsurgical percutaneous tr ansluminal coronary angioplasty (PTCA) status June 30, 2024 8:37am Aortic valve stenosis June 30, 2024 8 :37am Dyslipidemia June 30, 2024 8:3 7am Essential hypertension June 30, 2024 8:37am Paroxysmal atrial fibrillation June 8:37am Peripheral arterial disease June 30, 2024 8:37am Carotid stenosis, bilateral June 30, 2024 8:37am Postsurgical percutaneous tr ansluminal coronary angioplasty (PTCA) status August 10, 2024 1:40pm Aortic valve stenosis August 10, 2024 1:4 0pm Dyslipidemia August 10, 2024 1:40p m Essential hypertension August 10, 2024 1: 40pm Paroxysmal atrial fibrillation August 10, 2024 1:40pm Peripheral arterial disease August 10 1:40pm Carotid stenosis, bilateral August 10 1:40pm Chief Complaint Admit Date [facility] May 03, 2024 9:36am HF w/EF<35% or less May 19, 2024 9:45 am S/P CEA June 07, 2024 12: 37pm HF with EF<35% or less June 13, 2024 1:00pm UPDATE H&P (SEE NOTE) June 30, 2024 8 :37am AFIB July 05, 2024 10: 47am Atrial fibrillation July 05, 2024 12: 39pm Atrial fibrillation July 05, 2024 12: 58pm CLAUDICATION July 11, 2024 10: 42am HF with EF<35% or less July 13, 2024 1:00pm 1 W DCCV July 13, 2024 2:0 2pm HF with EF<35% or less August 10, 2024 1: 00pm 1 M FU August 10, 2024 1:40p m 6 MONTH F/U PROSTATE August 16, 2024 9:44 am HF with EF<35% or less August 29, 2024 1 :00pm 4 M FU August 31, 2024 9:41 am Reason for Visit Admit Date Atrial fibrillation May 03, 2024 9:36am Cardiac LV ejection fraction 21-30% Febr ry 2024 9:36am Aortic valve stenosis May 03 9:36am COPD (chronic obstructive pulmonary dise ase) May 03, 2024 9:36am Postsurgical percutaneous tr ansluminal coronary angioplasty (PTCA) status June 30, 2024 8:37am Aortic valve stenosis June 30, 2024 8 :37am Dyslipidemia June 30, 2024 8:3 7am Essential hypertension June 30, 2024 8:37am Paroxysmal atrial fibrillation June 8:37am Peripheral arterial disease June 30, 2024 8:37am Carotid stenosis, bilateral June 30, 2024 8:37am Postsurgical percutaneous tr ansluminal coronary angioplasty (PTCA) status August 10, 2024 1:40pm Aortic valve stenosis August 10, 2024 1:4 0pm Dyslipidemia August 10, 2024 1:40p m Essential hypertension August 10, 2024 1: 40pm Paroxysmal atrial fibrillation August 10, 2024 1:40pm Peripheral arterial disease August 10 1:40pm Carotid stenosis, bilateral August 10 1:40pm Primary malignant neoplasm o f prostate with high risk of recurrence due to August 16, 2024 9:44am Atrial fibrillation August 31, 2024 9:41 am Breast lump in upper inner quadrant August 31, 2024 9:41am Chief Complaint Admit Date HF w/EF<35% or less May 19, 2024 9:45 am S/P CEA June 07, 2024 12: 37pm HF with EF<35% or less June 13, 2024 1:00pm UPDATE H&P (SEE NOTE) June 30, 2024 8 :37am AFIB July 05, 2024 10: 47am Atrial fibrillation July 05, 2024 12: 39pm Atrial fibrillation July 05, 2024 12: 58pm CLAUDICATION July 11, 2024 10: 42am HF with EF<35% or less July 13, 2024 1:00pm 1 W DCCV July 13, 2024 2:0 2pm HF with EF<35% or less August 10, 2024 1: 00pm 1 M FU August 10, 2024 1:40p m 6 MONTH F/U PROSTATE August 16, 2024 9:44 am HF with EF<35% or less August 29, 2024 1 :00pm 4 M FU Ankita 18th, 2025 9:41 am BREAST LUMP September 08, 2024 8:39 am Reason for Visit Admit Date Postsurgical percutaneous tr ansluminal coronary angioplasty (PTCA) status June 30, 2024 8:37am Aortic valve stenosis June 30, 2024 8 :37am Dyslipidemia June 30, 2024 8:3 7am Essential hypertension June 30, 2024 8:37am Paroxysmal atrial fibrillation June 8:37am Peripheral arterial disease June 30, 2024 8:37am Carotid stenosis, bilateral June 30, 2024 8:37am Postsurgical percutaneous tr ansluminal coronary angioplasty (PTCA) status August 10, 2024 1:40pm Aortic valve stenosis August 10, 2024 1:4 0pm Dyslipidemia August 10, 2024 1:40p m Essential hypertension August 10, 2024 1: 40pm Paroxysmal atrial fibrillation August 10, 2024 1:40pm Peripheral arterial disease August 10 1:40pm Carotid stenosis, bilateral August 10 1:40pm Primary malignant neoplasm o f prostate with high risk of recurrence due to August 16, 2024 9:44am Atrial fibrillation August 31, 2024 9:41 am Breast lump in upper inner quadrant August 31, 2024 9:41am Chief Complaint Admit Date HF w/EF<35% or less May 19, 2024 9:45 am S/P CEA June 07, 2024 12: 37pm HF with EF<35% or less June 13, 2024 1:00pm UPDATE H&P (SEE NOTE) June 30, 2024 8 :37am AFIB July 05, 2024 10: 47am Atrial fibrillation July 05, 2024 12: 39pm Atrial fibrillation July 05, 2024 12: 58pm CLAUDICATION July 11, 2024 10: 42am HF with EF<35% or less July 13, 2024 1:00pm 1 W DCCV July 13, 2024 2:0 2pm HF with EF<35% or less August 10, 2024 1: 00pm 1 M FU August 10, 2024 1:40p m 6 MONTH F/U PROSTATE August 16, 2024 9:44 am HF with EF<35% or less August 29, 2024 1 :00pm 4 M FU August 31, 2024 9:41 am BREAST LUMP September 08, 2024 8:39 am A FIB September 13, 2024 12:39 pm Chief Complaint Admit Date S/P CEA June 07, 2024 12: 37pm HF with EF<35% or less June 13, 2024 1:00pm UPDATE H&P (SEE NOTE) June 30, 2024 8 :37am AFIB July 05, 2024 10: 47am Atrial fibrillation July 05, 2024 12: 39pm Atrial fibrillation July 05, 2024 12: 58pm CLAUDICATION July 11, 2024 10: 42am HF with EF<35% or less July 13, 2024 1:00pm 1 W DCCV July 13, 2024 2:0 2pm HF with EF<35% or less August 10, 2024 1: 00pm 1 M FU August 10, 2024 1:40p m 6 MONTH F/U PROSTATE August 16, 2024 9:44 am HF with EF<35% or less August 29, 2024 1 :00pm 4 M FU August 31, 2024 9:41 am BREAST LUMP September 08, 2024 8:39 am A FIB September 13, 2024 12:39 pm Chief Complaint Admit Date UPDATE H&P (SEE NOTE) June 30, 2024 8 :37am AFIB July 05, 2024 10: 47am Atrial fibrillation July 05, 2024 12: 39pm Atrial fibrillation July 05, 2024 12: 58pm CLAUDICATION July 11, 2024 10: 42am HF with EF<35% or less July 13, 2024 1:00pm 1 W DCCV July 13, 2024 2:0 2pm HF with EF<35% or less August 10, 2024 1: 00pm 1 M FU August 10, 2024 1:40p m 6 MONTH F/U PROSTATE August 16, 2024 9:44 am HF with EF<35% or less August 29, 2024 1 :00pm 4 M FU August 31, 2024 9:41 am BREAST LUMP September 08, 2024 8:39 am A FIB September 13, 2024 12:39 pm A FIB September 13, 2024 12:54 pm 2 MONTH F/U PROSTATE, PSA PRIOR October 172024 9:42am RADIATION October 17, 2024 10: 00am Reason for Visit Admit Date Postsurgical percutaneous tr ansluminal coronary angioplasty (PTCA) status June 30, 2024 8:37am Aortic valve stenosis June 30, 2024 8 :37am Dyslipidemia June 30, 2024 8:3 7am Essential hypertension June 30, 2024 8:37am Paroxysmal atrial fibrillation June 8:37am Peripheral arterial disease June 30, 2024 8:37am Carotid stenosis, bilateral June 30, 2024 8:37am Postsurgical percutaneous tr ansluminal coronary angioplasty (PTCA) status August 10, 2024 1:40pm Aortic valve stenosis August 10, 2024 1:4 0pm Dyslipidemia August 10, 2024 1:40p m Essential hypertension August 10, 2024 1: 40pm Paroxysmal atrial fibrillation August 10, 2024 1:40pm Peripheral arterial disease August 10 1:40pm Carotid stenosis, bilateral August 10 1:40pm Primary malignant neoplasm o f prostate with high risk of recurrence due to August 16, 2024 9:44am Atrial fibrillation August 31, 2024 9:41 am Breast lump in upper inner quadrant August 31, 2024 9:41am Primary malignant neoplasm o f prostate with high risk of recurrence due to October 17, 2024 9:42am Chief Complaint Admit Date HF with EF<35% or less July 13, 2024 1:00pm 1 W DCCV July 13, 2024 2:0 2pm HF with EF<35% or less August 10, 2024 1: 00pm 1 M FU August 10, 2024 1:40p m 6 MONTH F/U PROSTATE August 16, 2024 9:44 am HF with EF<35% or less August 29, 2024 1 :00pm 4 M FU August 31, 2024 9:41 am BREAST LUMP September 08, 2024 8:39 am A FIB September 13, 2024 12:39 pm A FIB September 13, 2024 12:54 pm 2 MONTH F/U PROSTATE, PSA PRIOR October 172024 9:42am RADIATION October 17, 2024 10: 00am BUBBLE TEST November 03, 2024 1: 50pm Reason for Visit Admit Date Postsurgical percutaneous tr ansluminal coronary angioplasty (PTCA) status August 10, 2024 1:40pm Aortic valve stenosis August 10, 2024 1:4 0pm Dyslipidemia August 10, 2024 1:40p m Essential hypertension August 10, 2024 1: 40pm Paroxysmal atrial fibrillation August 10, 2024 1:40pm Peripheral arterial disease August 10 1:40pm Carotid stenosis, bilateral August 10 1:40pm Primary malignant neoplasm o f prostate with high risk of recurrence due to August 16, 2024 9:44am Atrial fibrillation August 31, 2024 9:41 am Breast lump in upper inner quadrant August 31, 2024 9:41am Primary malignant neoplasm o f prostate with high risk of recurrence due to October 17, 2024 9:42am Chief Complaint Admit Date HF with EF<35% or less July 13, 2024 1:00pm 1 W DCCV July 13, 2024 2:0 2pm HF with EF<35% or less August 10, 2024 1: 00pm 1 M FU August 10, 2024 1:40p m 6 MONTH F/U PROSTATE August 16, 2024 9:44 am HF with EF<35% or less August 29, 2024 1 :00pm 4 M FU August 31, 2024 9:41 am BREAST LUMP September 08, 2024 8:39 am A FIB September 13, 2024 12:39 pm A FIB September 13, 2024 12:54 pm 2 MONTH F/U PROSTATE, PSA PRIOR October 172024 9:42am RADIATION October 17, 2024 10: 00am BUBBLE TEST November 03, 2024 1: 50pm 3 M FU November 10, 2024 10 :44am Reason for Visit Admit Date Postsurgical percutaneous tr ansluminal coronary angioplasty (PTCA) status August 10, 2024 1:40pm Aortic valve stenosis August 10, 2024 1:4 0pm Dyslipidemia August 10, 2024 1:40p m Essential hypertension August 10, 2024 1: 40pm Paroxysmal atrial fibrillation August 10, 2024 1:40pm Peripheral arterial disease August 10 1:40pm Carotid stenosis, bilateral August 10 1:40pm Primary malignant neoplasm o f prostate with high risk of recurrence due to August 16, 2024 9:44am Atrial fibrillation August 31, 2024 9:41 am Breast lump in upper inner quadrant August 31, 2024 9:41am Primary malignant neoplasm o f prostate with high risk of recurrence due to October 17, 2024 9:42am Postsurgical percutaneous tr ansluminal coronary angioplasty (PTCA) status November 10, 2024 10:44am Aortic valve stenosis November 10, 2024 10:44am Dyslipidemia November 10, 2024 10 :44am Essential hypertension November 10, 2024 10:44am Paroxysmal atrial fibrillation November 102024 10:44am Peripheral arterial disease November 10, 2024 10:44am Carotid stenosis, bilateral November 10, 2024 10:44am Chief Complaint Admit Date HF with EF<35% or less August 10, 2024 1: 00pm 1 M FU August 10, 2024 1:40p m 6 MONTH F/U PROSTATE August 16, 2024 9:44 am HF with EF<35% or less August 29, 2024 1 :00pm 4 M FU August 31, 2024 9:41 am BREAST LUMP September 08, 2024 8:39 am A FIB September 13, 2024 12:39 pm A FIB September 13, 2024 12:54 pm 2 MONTH F/U PROSTATE, PSA PRIOR October 172024 9:42am RADIATION October 17, 2024 10: 00am BUBBLE TEST November 03, 2024 1: 50pm 3 M FU November 10, 2024 10 :44am PAROXYSMAL A FIB November 16, 2024 2:53pm 1 Y F/U November 24, 2024 10:17am Reason for Visit Admit Date Postsurgical percutaneous tr ansluminal coronary angioplasty (PTCA) status August 10, 2024 1:40pm Aortic valve stenosis August 10, 2024 1:4 0pm Dyslipidemia August 10, 2024 1:40p m Essential hypertension August 10, 2024 1: 40pm Paroxysmal atrial fibrillation August 10, 2024 1:40pm Peripheral arterial disease August 10 1:40pm Carotid stenosis, bilateral August 10 1:40pm Primary malignant neoplasm o f prostate with high risk of recurrence due to August 16, 2024 9:44am Atrial fibrillation Ankita 18th, 2025 9:41 am Breast lump in upper inner quadrant August 31, 2024 9:41am Primary malignant neoplasm o f prostate with high risk of recurrence due to October 17, 2024 9:42am LV dysfunction November 10, 2024 10 :44am Postsurgical percutaneous tr ansluminal coronary angioplasty (PTCA) status November 10, 2024 10:44am Aortic valve stenosis November 10, 2024 10:44am Dyslipidemia November 10, 2024 10 :44am Essential hypertension November 10, 2024 10:44am Paroxysmal atrial fibrillation November 102024 10:44am Peripheral arterial disease November 10, 2024 10:44am Carotid stenosis, bilateral November 10, 2024 10:44am Family History No Family History Records Found Relationship Condition Age at Onset Recorded Date/T tu father Cerebrovascular accident (CVA) Unknown mother Coronary artery disease Unknown History of coronary artery bypass surgery Unknown Congestive heart failure Unknown Status post mitral valve replacement Unkn own brother Chronic obstructive pulmonary disease Unk nown Diabetes mellitus Unknown Malignant neoplasm Unknown grandfather Malignant neoplasm of colon Unknown Summary Purpose Advance Directives No Advanced Directives Records Found Advance Directive Response Recorded Date/ Time Advance Directives on File No September 24, 2021 8:54am Name of Medical Power of Manager Of Enterprise jean theiv ert September 24, 2021 8:54am Advance Directives Yes September 24 8:54am Living Will Yes September 24, 2021 8:54am Power of Manager Of Enterprise Yes September 24 8:54am Advance Directive Response Recorded Date/ Time Advance Directives on File No September 24, 2021 8:54am Name of Medical Power of Manager Of Enterprise jean theiv ert September 24, 2021 8:54am Name of Medical Power of Manager Of Enterprise [facility] Deepa Thei dert November 04, 2021 1:24pm Advance Directives Yes September 24 8:54am Living Will Yes November 04 1:24pm Power of Manager Of Enterprise Yes November 04 1:24pm Advance Directive Response Recorded Date/ Time Name of Medical Power of Manager Of Enterprise [facility] Deepa Thei dert November 04, 2021 12:24pm Advance Directives Yes September 24 7:54am Living Will Yes November 04 12:24pm Power of Manager Of Enterprise Yes [place] 22nd, 2 022 12:24pm Advance Directive Response Recorded Date/ Time Advance Directives on File Yes 2022 9:06am Name of Medical Power of Manager Of Enterprise Johnryvesna Barajas March 21, 2022 9:06am Advance Directives Yes March 21, 2022 9:06am Living Will Yes March 21 9:06am Power of Manager Of Enterprise Yes March 21 023 9:06am Advance Directive Response Recorded Date/ Time Advance Directives on File Yes 2022 9:06am Name of Medical Power of Manager Of Enterprise Hannah Barajas March 21, 2022 9:06am Advance Directives on File No 2022 12:52pm Advance Directives Yes March 21, 2022 9:06am Living Will Yes April 04 12:52pm Power of Manager Of Enterprise Yes April 04, 2022 12:52pm Advance Directive Response Recorded Date/ Time Advance Directives on File Yes 2022 10:06am Name of Medical Power of Manager Of Enterprise Hannah Barajas March 21, 2022 10:06am Advance Directives on File No 2022 1:52pm Advance Directives Yes March 21, 2022 10:06am Living Will Yes April 04 1:52pm Power of Manager Of Enterprise Yes April 04, 2022 1:52pm Advance Directive Response Recorded Date/ Time Advance Directives Yes March 21, 2022 10:06am Living Will Yes April 04 1:52pm Power of Manager Of Enterprise Yes April 04, 2022 1:52pm Advance Directive Response Recorded Date/ Time Advance Directives Yes March 21, 2022 9:06am Living Will Yes April 04 12:52pm Power of Manager Of Enterprise Yes April 04, 2022 12:52pm Advance Directive Response Recorded Date/ Time Name of Medical Power of Manager Of Enterprise PEARL BARAJAS May 12, 2023 11:35am Advance Directives Yes March 21, 2022 9:06am Living Will Yes May 12, 024 11:35am Power of Manager Of Enterprise Yes May 12, 2023 11:35am Advance Directive Response Recorded Date/ Time Name of Medical Power of Manager Of Enterprise PEARL BARAJAS May 12, 2023 12:35pm Advance Directives Yes March 21, 2022 10:06am Living Will Yes May 12, 12:35pm Power of Manager Of Enterprise Yes May 12, 2023 12:35pm Advance Directive Response Recorded Date/ Time Living Will Yes April 04 1:52pm Do you have a Healthcare Power of Manager Of Enterprise? Yes April 04, 2022 1:52pm Living Will Yes May 12, 12:35pm Do you have a Healthcare Power of Manager Of Enterprise? Yes May 12, 2023 12:35pm Advance Directives on File No May 19, 2024 10:56am Living Will Yes May 19, 2024 11:06am Do you have a Healthcare Power of Manager Of Enterprise? Yes May 19, 2024 11:06am Living Will Yes April 09 12:09am Do you have a Healthcare Power of Manager Of Enterprise? Yes April 09, 2024 12:09am Name of Medical Power of Manager Of Enterprise Nandini Barajas April 09, 2024 12:09am Living Will No April 19 11:10am Do you have a Healthcare Power of Manager Of Enterprise? No April 19, 2024 11:10am Advance Directives Yes March 21, 2022 10:06am Advance Directive Response Recorded Date/ Time Living Will Yes April 04 1:52pm Do you have a Healthcare Power of Manager Of Enterprise? Yes April 04, 2022 1:52pm Living Will Yes May 12 12:35pm Do you have a Healthcare Power of Manager Of Enterprise? Yes May 12, 2023 12:35pm Advance Directives on File No May 19, 2024 10:56am Living Will Yes May 19, 2024 11:06am Do you have a Healthcare Power of Manager Of Enterprise? Yes May 19, 2024 11:06am Living Will Yes November 08 6:10pm Do you have a Healthcare Power of Manager Of Enterprise? Yes November 09, 2023 6:10pm Living Will Yes April 09 12:09am Do you have a Healthcare Power of Manager Of Enterprise? Yes April 09, 2024 12:09am Name of Medical Power of Manager Of Enterprise Nandini Karl April 09, 2024 12:09am Living Will No April 19 11:10am Do you have a Healthcare Power of Manager Of Enterprise? No April 19, 2024 11:10am Advance Directives Yes March 21, 2022 10:06am Advance Directive Response Recorded Date/ Time Living Will Yes April 04 1:52pm Do you have a Healthcare Power of Manager Of Enterprise? Yes April 04, 2022 1:52pm Advance Directives on File No May 19, 2024 10:56am Living Will Yes May 19, 2024 11:06am Do you have a Healthcare Power of Manager Of Enterprise? Yes May 19, 2024 11:06am Living Will Yes November 08 6:10pm Do you have a Healthcare Power of Manager Of Enterprise? Yes November 09, 2023 6:10pm Living Will Yes April 09 12:09am Do you have a Healthcare Power of Manager Of Enterprise? Yes April 09, 2024 12:09am Name of Medical Power of Manager Of Enterprise Nandini Barajas April 09, 2024 12:09am Living Will No April 19 11:10am Do you have a Healthcare Power of Manager Of Enterprise? No April 19, 2024 11:10am Advance Directives on File Yes July 05, 2024 11:27am Living Will Yes July 05, 2024 11:27am Do you have a Healthcare Power of Manager Of Enterprise? Yes July 05, 2024 11:27am Name of Medical Power of Manager Of Enterprise Nandini July 05, 2024 11:27am Advance Directives Yes July 05, 11:27am Advance Directive Response Recorded Date/ Time Advance Directives on File No May 19, 2024 10:56am Living Will Yes May 19, 2024 11:06am Do you have a Healthcare Power of Manager Of Enterprise? Yes May 19, 2024 11:06am Living Will Yes November 08 6:10pm Do you have a Healthcare Power of Manager Of Enterprise? Yes November 09, 2023 6:10pm Living Will Yes April 09 12:09am Do you have a Healthcare Power of Manager Of Enterprise? Yes April 09, 2024 12:09am Name of Medical Power of Manager Of Enterprise Nandini Barajas April 09, 2024 12:09am Living Will No April 19 11:10am Do you have a Healthcare Power of Manager Of Enterprise? No April 19, 2024 11:10am Advance Directives on File Yes July 05, 2024 11:27am Living Will Yes July 05, 2024 11:27am Do you have a Healthcare Power of Manager Of Enterprise? Yes July 05, 2024 11:27am Name of Medical Power of Manager Of Enterprise Nandini July 05, 2024 11:27am Advance Directives Yes July 05 11:27am Advance Directive Response Recorded Date/ Time Advance Directives on File No May 19, 2024 10:56am Living Will Yes May 19, 2024 11:06am Do you have a Healthcare Power of Manager Of Enterprise? Yes May 19, 2024 11:06am Living Will Yes November 08 6:10pm Do you have a Healthcare Power of Manager Of Enterprise? Yes November 09, 2023 6:10pm Living Will No April 19 11:10am Do you have a Healthcare Power of Manager Of Enterprise? No April 19, 2024 11:10am Advance Directives on File Yes July 05, 2024 11:27am Living Will Yes July 05, 2024 11:27am Do you have a Healthcare Power of Manager Of Enterprise? Yes July 05, 2024 11:27am Name of Medical Power of Manager Of Enterprise Nandini July 05, 2024 11:27am Advance Directives Yes July 05 11:27am Advance Directive Response Recorded Date/ Time Advance Directives on File No May 19, 2024 10:56am Living Will Yes May 19, 2024 11:06am Do you have a Healthcare Power of Manager Of Enterprise? Yes May 19, 2024 11:06am Living Will Yes November 08 6:10pm Do you have a Healthcare Power of Manager Of Enterprise? Yes November 09, 2023 6:10pm Advance Directives on File Yes July 05, 2024 11:27am Living Will Yes July 05, 2024 11:27am Do you have a Healthcare Power of Manager Of Enterprise? Yes July 05, 2024 11:27am Name of Medical Power of Manager Of Enterprise Nandini July 05, 2024 11:27am Advance Directives Yes July 05 11:27am Advance Directive Response Recorded Date/ Time Living Will Yes November 08 6:10pm Do you have a Healthcare Power of Manager Of Enterprise? Yes November 09, 2023 6:10pm Advance Directives on File Yes July 05, 2024 11:27am Living Will Yes July 05, 2024 11:27am Do you have a Healthcare Power of Manager Of Enterprise? Yes July 05, 2024 11:27am Name of Medical Power of Manager Of Enterprise Nandini July 05, 2024 11:27am Advance Directives Yes July 05 11:27am Advance Directive Response Recorded Date/ Time Living Will Yes April 04 1:52pm Do you have a Healthcare Power of Manager Of Enterprise? Yes April 04, 2022 1:52pm Advance Directives on File Yes July 05, 2024 11:27am Living Will Yes July 05, 2024 11:27am Do you have a Healthcare Power of Manager Of Enterprise? Yes July 05, 2024 11:27am Name of Medical Power of Manager Of Enterprise Nandini July 05, 2024 11:27am Advance Directives Yes July 05 11:27am Advance Directive Response Recorded Date/ Time Living Will Yes April 04 1:52pm Do you have a Healthcare Power of Manager Of Enterprise? Yes April 04, 2022 1:52pm Advance Directives Yes July 05 11:27am Advance Directive Response Recorded Date/ Time Living Will Yes November 08 6:10pm Do you have a Healthcare Power of Manager Of Enterprise? Yes November 09, 2023 6:10pm Living Will Yes April 04 1:52pm Do you have a Healthcare Power of Manager Of Enterprise? Yes April 04, 2022 1:52pm Advance Directives Yes July 05 11:27am Date Activated Date Inactivated Comments 12/19/2024 6:24 AM 12/19/2024 3:05 PM Date Activated Date Inactivated Comments 12/19/2024 6:24 AM 12/19/2024 3:05 PM Additional Source Comments Goals (unrecognized section and content) Goals may be documented in a n alternate sectionGoals may be documented in an alternate sectionGoals may be documented in an alternate sectionGoals may be documented in an alternate sectionGoals may be documented in an alternate sectionGoals may be documented in an alternate sectionGoals may be documented in an alternate sectionGoals may be documented in an alternate sectionGoals may be documented in an alternate sectionGoals may be documented in an alternate sectionGoals may be documented in an alternate sectionGoals may be documented in an alternate sectionGoals may be documented in an alternate sectionGoals may be documented in an alternate sectionGoals may be documented in an alternate sectionGoals may be documented in an alternate sectionGoals may be documented in an alternate sectionGoals may be documented in an alternate sectionGoals may be documented in an alternate sectionGoals may be documented in an alternate sectionGoals may be documented in an alternate sectionGoals may be documented in an alternate section (unrecognized sect ion and content) No Status Records FoundNo Status Records FoundNo Status Records FoundNo Status Records Found INFORMATION SOURCE (unrecogn ized section and content) DATE CREATED AUTHOR 07/18/2021 [facility] DATE CREATED AUTHOR AUTHOR'S ORGANIZ ATION 06/30/2022 [facility] DATE CREATED AUTHOR AUTHOR'S ORGANIZ ATION 01/18/2025 [facility] DATE CREATED AUTHOR AUTHOR'S ORGANIZ ATION 01/21/2025 [facility] Care Teams (unrecognized sec tion and content) Team Status: Active Member Role Status Dates Dr. Santosh Velazquez DO Primary Care Provider Active Team Status: Inactive Member Role Status Dates Dr. Santosh Velazquez DO Primary Care Provider Active Start: May 03, 2024 End: May 03, 2024 Dr. Santosh Velazquez DO Attending Provider Active Start: May 03, 2024 End: May 03, 2024 Dr. Santosh Velazquez DO Referring Provider Active Start: May 03, 2024 End: May 03, 2024 Team Status: Inactive Member Role Status Dates Dr. Santosh Velazquez DO Primary Care Provider Active Start: May 19, 2024 End: May 19, 2024 Dr. Brendan Lloyd MD Attending Provider Active Start: May 19, 2024 End: May 19, 2024 Dr. Brendan Lloyd MD Referring Provider Active Start: May 19, 2024 End: May 19, 2024 Team Status: Inactive Member Role Status Dates Dr. Santosh Velazquez DO Primary Care Provider Active Start: May 26, 2024 End: May 26, 2024 Jelly Rogers PA, PA Attending Provider Active Start: May 26, 2024 End: May 26, 2024 Jelly Rogers PA, PA Referring Provider Active Start: May 26, 2024 End: May 26, 2024 Team Status: Inactive Member Role Status Dates Dr. Santosh Velazquez DO Primary Care Provider Active Start: June 07, 2024 End: June 07, 2024 Jelly Rogers PA, PA Attending Provider Active Start: June 07, 2024 End: June 07, 2024 Jelly Rogers PA, PA Referring Provider Active Start: June 07, 2024 End: June 07, 2024 Team Status: Active Member Role Status Dates Dr. Santosh Velazquez DO Primary Care Provider Active Start: June 07, 2024 Dr. Blade Dahl MD Attending Provider Active S tart: June 07, 2024 Jelly Rogers PA, PA Referring Provider Active Start: June 07, 2024 Team Status: Active Member Role Status Dates Dr. Santosh Velazquez DO Primary Care Provider Active Start: June 07, 2024 Dr. Brendan Lloyd MD Attending Provider Active Start: June 07, 2024 Team Status: Inactive Member Role Status Dates Dr. Santosh Velazquez DO Primary Care Provider Active Start: June 08, 2024 End: June 08, 2024 Jelly Rogers PA, PA Attending Provider Active Start: June 08, 2024 End: June 08, 2024 Jelly Rogers PA, PA Referring Provider Active Start: June 08, 2024 End: June 08, 2024 Team Status: Inactive Member Role Status Dates Dr. Santosh Velazquez DO Primary Care Provider Active Start: June 13, 2024 End: June 13, 2024 Dr. Brendan Lloyd MD Attending Provider Active Start: June 13, 2024 End: June 13, 2024 Dr. Brendan Lloyd MD Referring Provider Active Start: June 13, 2024 End: June 13, 2024 Team Status: Inactive Member Role Status Dates Dr. Santosh Velazquez DO Primary Care Provider Active Start: June 30, 2024 End: June 30, 2024 Dr. Santosh Velazquez DO Referring Provider Active Start: June 30, 2024 End: June 30, 2024 Bud Saez [employer], [employer] Attending Provider Active S tart: June 30, 2024 End: June 30, 2024 Team Status: Inactive Member Role Status Dates Dr. Santosh Velazquez DO Primary Care Provider Active Start: July 05, 2024 End: July 05, 2024 Dr. Vaughn Mcpherson MD Attending Provider Active S tart: July 05, 2024 End: July 05, 2024 Dr. Vaughn Mcpherson MD Referring Provider Active S tart: July 05, 2024 End: July 05, 2024 Team Status: Active Member Role Status Dates Dr. Santosh Velazquez DO Primary Care Provider Active Start: July 05, 2024 Dr. Vaughn Mcpherson MD Attending Provider Active S tart: July 05, 2024 Dr. Vaughn Mcpherson MD Referring Provider Active S tart: July 05, 2024 Dr. Vaughn Mcpherson MD Other Provider Active Start : July 05, 2024 Team Status: Active Member Role Status Dates Dr. Santosh Velazquez DO Primary Care Provider Active Start: July 05, 2024 Dr. Vaughn Mcpherson MD Referring Provider Active S tart: July 05, 2024 Dr. Vaughn Mcpherson MD Other Provider Active Start : July 05, 2024 Dr. Felipe Velazquez DO Attending Provider Active S tart: July 05, 2024 Team Status: Inactive Member Role Status Dates Dr. Santosh Velazquez DO Primary Care Provider Active Start: July 11, 2024 End: July 11, 2024 Jelly NICHOLE PA Attending Provider Active Start: July 11, 2024 End: July 11, 2024 Jelly NICHOLE, PA Referring Provider Active Start: July 11, 2024 End: July 11, 2024 Team Status: Active Member Role Status Dates Dr. Santosh Velazquez DO Primary Care Provider Active Start: July 11, 2024 Dr. Blade Dahl MD Attending Provider Active S tart: July 11, 2024 Jelly NICHOLE, PA Referring Provider Active Start: July 11, 2024 Team Status: Inactive Member Role Status Dates Dr. Santosh Velazquez DO Primary Care Provider Active Start: July 13, 2024 End: July 13, 2024 Dr. Brendan Lloyd MD Attending Provider Active Start: July 13, 2024 End: July 13, 2024 Dr. Brendan Lloyd MD Referring Provider Active Start: July 13, 2024 End: July 13, 2024 Team Status: Inactive Member Role Status Dates Dr. Santosh Velazquez DO Primary Care Provider Active Start: July 13, 2024 End: July 13, 2024 Dr. Santosh Velazquez DO Referring Provider Active Start: July 13, 2024 End: July 13, 2024 Dr. Vaughn Mcpherson MD Attending Provider Active S tart: July 13, 2024 End: July 13, 2024 Team Status: Inactive Member Role Status Dates Dr. Santosh Velazquez DO Primary Care Provider Active Start: July 14, 2024 End: July 14, 2024 Dr. Jam Cohen MD Attending Provider Active Start: July 14, 2024 End: July 14, 2024 Dr. Jam Cohen MD Referring Provider Active Start: July 14, 2024 End: July 14, 2024 Team Status: Inactive Member Role Status Dates Dr. Santosh Velazquez DO Primary Care Provider Active Start: August 10, 2024 End: August 13, 2024 Dr. Brendan Lloyd MD Attending Provider Active Start: August 10, 2024 End: August 13, 2024 Dr. Brendan Lloyd MD Referring Provider Active Start: August 10, 2024 End: August 13, 2024 Team Status: Inactive Member Role Status Dates Dr. Santosh Velazquez DO Primary Care Provider Active Start: August 10, 2024 End: August 10, 2024 Dr. Santosh Velazquez DO Referring Provider Active Start: August 10, 2024 End: August 10, 2024 Bud Saez NP, [employer] Attending Provider Active S tart: August 10, 2024 End: August 10, 2024 Team Status: Inactive Member Role Status Dates Dr. Santosh Velazquez DO Primary Care Provider Active Start: August 16, 2024 End: August 16, 2024 Dr. Santosh Velazquez DO Referring Provider Active Start: August 16, 2024 End: August 16, 2024 Dr. Nazario Colby DO Attending Provider Active Start: August 16, 2024 End: August 16, 2024 Team Status: Active Member Role Status Dates Dr. Santosh Velazquez DO Primary Care Provider Active Start: August 29, 2024 Dr. Brendan Lloyd MD Attending Provider Active Start: August 29, 2024 Dr. Brendan Lloyd MD Referring Provider Active Start: August 29, 2024 Team Status: Inactive Member Role Status Dates Dr. Santosh Velazquez DO Primary Care Provider Active Start: August 31, 2024 End: August 31, 2024 Dr. Santosh Velazquez DO Attending Provider Active Start: August 31, 2024 End: August 31, 2024 Dr. Santosh Velazquez DO Referring Provider Active Start: August 31, 2024 End: August 31, 2024 Team Status: Active Member Role Status Dates Dr. Santosh Velazquez DO Primary Care Provider Active Start: April 18, 2024 Dr. Brendan Lloyd MD Attending Provider Active Start: April 18, 2024 Team Status: Inactive Member Role Status Dates Dr. Santosh Velazquez DO Primary Care Provider Active Start: April 19, 2024 End: April 19, 2024 Dr. Teofilo Gallagher DO Attending Provider Active S tart: April 19, 2024 End: April 19, 2024 Dr. Teofilo Gallagher DO Emergency Provider Active S tart: April 19, 2024 End: April 19, 2024 Team Status: Inactive Member Role Status Dates Dr. Santosh Velazquez DO Primary Care Provider Active Start: April 25, 2024 End: April 25, 2024 Dr. Jam Cohen MD Attending Provider Active Start: April 25, 2024 End: April 25, 2024 Dr. Jam Cohen MD Referring Provider Active Start: April 25, 2024 End: April 25, 2024 Team Status: Inactive Member Role Status Dates Dr. Santosh Velazquez DO Primary Care Provider Active Start: April 28, 2024 End: April 28, 2024 Dr. Santosh Velazquez DO Referring Provider Active Start: April 28, 2024 End: April 28, 2024 Bud Saez [employer], [employer] Attending Provider Active S tart: April 28, 2024 End: April 28, 2024 Team Status: Inactive Member Role Status Dates Dr. Santosh Velazquez DO Primary Care Provider Active Start: February 18, 2024 End: February 18, 2024 Dr. Santosh Velazquez DO Referring Provider Active Start: February 18, 2024 End: February 18, 2024 Dr. Nazario Colby DO Attending Provider Active Start: February 18, 2024 End: February 18, 2024 Team Status: Inactive Member Role Status Dates Dr. Santosh Velazquez DO Primary Care Provider Active Start: March 10, 2024 End: March 10, 2024 Dr. Santosh Velazquez DO Referring Provider Active Start: March 10, 2024 End: March 10, 2024 DAYANARA Montenegro Attending Provider Active Star t: March 10, 2024 End: March 10, 2024 Team Status: Inactive Member Role Status Dates Dr. Santosh Velazquez DO Primary Care Provider Active Start: March 10, 2024 End: March 10, 2024 Dr. Glen Wellington MD Attending Provider Active Start: March 10, 2024 End: March 10, 2024 Dr. Glen Wellington MD Referring Provider Active Start: March 10, 2024 End: March 10, 2024 Team Status: Inactive Member Role Status Dates Dr. Santosh Velazquez DO Primary Care Provider Active Start: April 08, 2024 End: April 13, 2024 Dr. Mateo Cueto DO Emergency Provider Active Start: April 08, 2024 End: April 13, 2024 Dr. Luba Villatoro MD Admit Provider Active St art: April 08, 2024 End: April 13, 2024 Dr. Luba Villatoro MD Other Provider Active St art: April 08, 2024 End: April 13, 2024 Dr. Colin Vance MD Other Provider Active Start: April 08, 2024 End: April 13, 2024 Dr. Patel Westbrook DO Attending Provider Active Start: April 08, 2024 End: April 13, 2024 Dr. Blade Wright DO Other Provider Active Star t: April 08, 2024 End: April 13, 2024 Team Status: Active Member Role Status Dates Dr. Santosh Velazquez DO Primary Care Provider Active Start: April 09, 2024 Dr. Mateo Cueto DO Emergency Provider Active Start: April 09, 2024 Dr. Luba Villatoro MD Admit Provider Active St art: April 09, 2024 Dr. Luba Villatoro MD Other Provider Active St art: April 09, 2024 Dr. oClin Vance MD Other Provider Active Start: April 09, 2024 Dr. Blade Wright DO Attending Provider Active Start: April 09, 2024 Dr. Blade Wright DO Other Provider Active Star t: April 09, 2024 Team Status: Active Member Role Status Dates Dr. Santosh Velazquez DO Primary Care Provider Active Start: April 09, 2024 Dr. Colin Vance MD Attending Provider Activ e Start: April 09, 2024 Team Status: Active Member Role Status Dates Dr. Santosh Velazquez DO Primary Care Provider Active Start: April 10, 2024 Dr. Mateo Cueto DO Emergency Provider Active Start: April 10, 2024 Dr. Luba Villatoro MD Admit Provider Active St art: April 10, 2024 Dr. Luba Villatoro MD Other Provider Active St art: April 10, 2024 Dr. Colin Vance MD Other Provider Active Start: April 10, 2024 Dr. Blade Wright DO Attending Provider Active Start: April 10, 2024 Dr. Blade Wright DO Other Provider Active Star t: April 10, 2024 Team Status: Active Member Role Status Dates Dr. Santosh Velazquez DO Primary Care Provider Active Start: April 10, 2024 Dr. Mateo Cueto DO Emergency Provider Active Start: April 10, 2024 Dr. Luba Villatoro MD Admit Provider Active St art: April 10, 2024 Dr. Luba Villatoro MD Other Provider Active St art: April 10, 2024 Dr. Colin Vance MD Attending Provider Activ e Start: April 10, 2024 Dr. Colin Vance MD Other Provider Active Start: April 10, 2024 Dr. Blade Wright DO Other Provider Active Star t: April 10, 2024 Team Status: Active Member Role Status Dates Dr. Santosh Velazquez DO Primary Care Provider Active Start: April 11, 2024 Dr. Mateo Cueto DO Emergency Provider Active Start: April 11, 2024 Dr. Luba Villatoro MD Admit Provider Active St art: April 11, 2024 Dr. Luba Villatoro MD Other Provider Active St art: April 11, 2024 Dr. Colin Vance MD Attending Provider Activ e Start: April 11, 2024 Dr. Colin Vance MD Other Provider Active Start: April 11, 2024 Dr. Patel Westbrook , DO Other Provider Active S tart: April 11, 2024 Dr. Blade Wright , DO Other Provider Active Star t: April 11, 2024 Team Status: Active Member Role Status Dates Dr. Santosh Velazquez DO Primary Care Provider Active Start: April 11, 2024 Dr. Mateo Cueto , DO Emergency Provider Active Start: April 11, 2024 Dr. Luba Villatoro MD Admit Provider Active St art: April 11, 2024 Dr. Luba Villatoro MD Other Provider Active St art: April 11, 2024 Dr. Colin Vance MD Other Provider Active Start: April 11, 2024 Dr. Patel Westbrook DO Attending Provider Active Start: April 11, 2024 Dr. Patel Westbrook DO Other Provider Active S tart: April 11, 2024 Dr. Blade Wright , DO Other Provider Active Star t: April 11, 2024 Team Status: Active Member Role Status Dates Dr. Santosh Velazquez DO Primary Care Provider Active Start: April 12, 2024 Dr. Mateo Cueto DO Emergency Provider Active Start: April 12, 2024 Dr. Luba Villatoro MD Admit Provider Active St art: April 12, 2024 Dr. Luba Villatoro MD Other Provider Active St art: April 12, 2024 Dr. Colin Vance MD Attending Provider Activ e Start: April 12, 2024 Dr. Colin Vance MD Other Provider Active Start: April 12, 2024 Dr. Patel Westbrook DO Other Provider Active S tart: April 12, 2024 Dr. Blade Wright DO Other Provider Active Star t: April 12, 2024 Team Status: Active Member Role Status Dates Dr. Santosh Velazquez DO Primary Care Provider Active Start: April 12, 2024 Dr. Mateo Nory , DO Emergency Provider Active Start: April 12, 2024 Dr. Luba Villatoro MD Admit Provider Active St art: April 12, 2024 Dr. Luba Villatoro MD Other Provider Active St art: April 12, 2024 Dr. Colin Vance MD Other Provider Active Start: April 12, 2024 Dr. Patel Westbrook DO Attending Provider Active Start: April 12, 2024 Dr. Patel Westbrook DO Other Provider Active S tart: April 12, 2024 Dr. Blade Wright , DO Other Provider Active Star t: April 12, 2024 Team Status: Active Member Role Status Dates Dr. Santosh Velazquez , DO Primary Care Provider Active Start: April 13, 2024 Dr. Mateo Cueto , DO Emergency Provider Active Start: April 13, 2024 Dr. Luba Villatoro MD Admit Provider Active St art: April 13, 2024 Dr. Luba Villatoro MD Other Provider Active St art: April 13, 2024 Dr. Colin Vance MD Other Provider Active Start: April 13, 2024 Dr. Patel Westbrook DO Attending Provider Active Start: April 13, 2024 Dr. Patel Westbrook DO Other Provider Active S tart: April 13, 2024 Dr. Blade Wright , DO Other Provider Active Star t: April 13, 2024 Team Status: Active Member Role Status Dates Dr. Santosh Velazquez DO Primary Care Provider Active Start: May 26, 2024 Jelly NICHOLE, PA Attending Provider Active Start: May 26, 2024 Jelly Rogers PA, PA Referring Provider Active Start: May 26, 2024 Team Status: Active Member Role Status Dates Dr. Santosh Velazquez DO Primary Care Provider Active Start: June 01, 2024 Dr. Brendan Lloyd MD Attending Provider Active Start: June 01, 2024 Dr. Brendan Lloyd MD Referring Provider Active Start: June 01, 2024 Team Status: Active Member Role Status Dates Dr. Santosh Velazquez DO Primary Care Provider Active Dr. Blade Dahl MD Attending Provider, Referring Pro vider Active Team Status: Inactive Member Role Status Dates Dr. Santosh Velazquez DO Primary Care Provider Active Dr. Blade Dahl MD Attending Provider, Referring Pro vider Active Team Status: Inactive Member Role Status Dates Dr. Santosh Velazquez , DO Primary Care Provider Active DAYANARA Montenegro Attending Provider, Referring Provid er Active Team Status: Inactive Member Role Status Dates Dr. Santosh Velazquez , DO Primary Care Provider Active Dr. Jam Cohen MD Attending Provider, Referr ing Provider Active Team Status: Inactive Member Role Status Dates Dr. Santosh Velazquez , DO Primary Care Pr ovider, Attending Provider, Referring Provider Active Team Status: Inactive Member Role Status Dates Dr. Santosh Velazquez , DO Primary Care Provider, Referr ing Provider Active Fabiola Escamilla WELDER MANUFACTURE, WELDER [employer]URE-C Attending Provider Active Team Status: Inactive Member Role Status Dates Dr. Santosh Velazquez , DO Primary Care Provider, Referr ing Provider Active Dr. Fatoumata Pimentel MD Attending Provider Active Team Status: Active Member Role Status Dates Dr. Santosh Velazquez DO Primary Care Provider Active Dr. Tyson Leroy MD Attending Provider Active Team Status: Inactive Member Role Status Dates Dr. Santosh Velazquez , DO Primary Care Provider Active Fabiola Escamilla WELDER MANUFACTURE, WEL[employer] MANU[employer]URE-C Attending Provider, Referring P rovider Active Team Status: Inactive Member Role Status Dates Dr. Santosh Velazquez , DO Primary Care Provider Active Dr. Colin Vance MD Attending Provider Activ e Team Status: Inactive Member Role Status Dates Dr. Santosh Velazquez DO Primary Care Provider Active Dr. Tyson Leroy MD Attending Provider Active Team Status: Active Member Role Status Dates Dr. Santosh Velazquez , DO Primary Care Provider Active Dr. Colin Vance MD Attending Provider, Refe rring Provider Active Team Status: Active Member Role Status Dates Dr. Santosh Velazquez DO Primary Care Provider Active Dr. Brendan Lloyd MD Attending Provider Active Team Status: Inactive Member Role Status Dates Dr. Santosh Velazquez DO Primary Care Provider Active [facility] Attending Provider Active Team Status: Active Member Role Status Dates Dr. Santosh Velazquez DO Primary Care Provider Active Fabiola Escamilla WELDER MANUFACTURE, WELDER MANUFACTURE-C Other Provider Active Dr. Felipe Velazquez , DO Attending Provider Active Team Status: Inactive Member Role Status Dates Dr. Santosh Velazquez DO Primary Care Provider Active Fabiola Escamilla WELDER MANUFACTURE, WELDER MANUFACTURE-C Attending Provider Active Spanish Linguist Relationship Specialty Start Date End Date Brown, Santosh R, DO [address] [place] [address] PCP - General Family Medicine 01/24/21 Kashmir Bruno MD [address] [place] [address] Referring General Surgery 06/21/18 Santosh Velazquez, DO [address] [place] [address] Family Medicine 10/28/19 Tyson Leroy [address] [place] [address] Cardiology 10/28/19 Santosh Velazquez, DO [address] [place] [address] Family Medicine 11/01/20 Fatoumata Pimentel(Historical)MD [address] [place] [address] Referring Endocrinology 07/18/21 fatoumata pimentel [place] Physician General Surgery 01/22/21 Spanish Linguist Relationship Specialty Start Date End Date Santosh Velazquez DO [address] [place] [address] PCP - General Family Medicine 01/24/21 Kashmir Bruno MD [address] [address] Referring General Surgery 06/21/18 Santosh Velazquez, DO [address] [place] [address] Family Medicine 10/28/19 Tyson Leroy [address] [place] [address] Cardiology 10/28/19 Santosh Velazquez DO [address] [place] [address] Family Medicine 11/01/20 Fatoumata Pimentel(Historical)MD [address] [place] [address] Referring Endocrinology 07/18/21 fatoumata pimentel Physician General Surgery 01/22/21 Team Status: Inactive Member Role Status Dates Dr. Santosh Velazquez , DO Primary Care Provider, Referr ing Provider Active Kayla Caryn NICHOLE PA Attending Provider Active Team Status: Active Member Role Status Dates Dr. Santosh Velazquez , DO Primary Care Provider Active Dr. Blade Dahl MD Attending Provider Active Kayla Bikoko NICHOLE, PA Referring Provider Active Team Status: Active Member Role Status Dates Dr. Santosh Velazquez , DO Primary Care Provider Active Dr. Tyson Leroy MD Attending Provider Active [facility] Active Team Status: Inactive Member Role Status Dates Dr. Santosh Velazquez , DO Primary Care Provider Active Kayla Bikoko NICHOLE PA Attending Provider, Referrin g Provider Active Team Status: Inactive Member Role Status Dates Dr. Santosh Velazquez , DO Primary Care Provider Active Dr. Tyson Leroy MD Attending Provider Active [facility] Active Team Status: Inactive Member Role Status Dates Dr. Santosh Velazquez , DO Primary Care Provider, Referr ing Provider Active Kayla Bikoko PA Attending Provider Active Team Status: Active Member Role Status Dates Dr. Santosh Velazquez , DO Primary Care Provider Active Fabiola Escamilla WELDER MANUFACTURE, WELDER MANUFACTURE-C Referring Provider, Other Provi alia Active Dr. Felipe Velazquez , DO Attending Provider Active Team Status: Active Member Role Status Dates Dr. Santosh Velazquez , DO Primary Care Provider Active Dr. Blade Dahl MD Attending Provider Active Kayla Bikoko PA Referring Provider Active Team Status: Inactive Member Role Status Dates Dr. Santosh Velazquez , DO Primary Care Provider, Referr ing Provider Active Dr. Brendan Lloyd MD Attending Provider Active Team Status: Inactive Member Role Status Dates Dr. Santosh Velazquez , DO Primary Care Provider Active Kayla Bikoko PA Attending Provider, Referring Provider Active Team Status: Inactive Member Role Status Dates Dr. Santosh Velazquez , DO Primary Care Provider Active Dr. Brendan Lloyd MD Attending Provider, Referring Pr ovider Active Team Status: Active Member Role Status Dates Dr. Santosh Velazquez , DO Primary Care Provider Active Dr. Blade Dahl MD Attending Provider Active Team Status: Inactive Member Role Status Dates Dr. Santosh Velazquez , DO Primary Care Provider, Referr ing Provider Active DAYANARA Montenegro Attending Provider Active Team Status: Active Member Role Status Dates Dr. Santosh Velazquez , DO Primary Care Provider Active Dr. Brendan Lloyd MD Referring Provider, Other Provid er Active Dr. Felipe Velazquez , DO Attending Provider Active Team Status: Active Member Role Status Dates Dr. Santosh Velazquez , DO Primary Care Provider Active Dr. Brendan Lloyd MD Attending Provider, Referring Pr ovider Active Team Status: Inactive Member Role Status Dates Dr. Santosh Velazquez , DO Primary Care Provider Active Dr. Nazario Colby DO Attending Provider Active Dr. Jam Cohen MD Referring Provider Active Team Status: Active Member Role Status Dates Dr. Santosh Velazquez DO Primary Care Provider Active Dr. Blade Dahl MD Attending Provider Active DAYANARA Montenegro Referring Provider Active Team Status: Inactive Member Role Status Dates Dr. Santosh Velazquez DO Primary Care Provider, Referr ing Provider Active Dr. Blade Dahl MD Attending Provider Active Team Status: Active Member Role Status Dates Dr. Santosh Velazquez DO Primary Care Provider Active Dr. Nazario Colby DO Attending Provider, Referring P rovider Active Team Status: Active Member Role Status Dates Dr. Santosh Velazquez DO Primary Care Provider Active Dr. Nazario Colby , DO Attending Provider Active Team Status: Inactive Member Role Status Dates Dr. Santosh Velazquez DO Primary Care Provider Active Dr. Nazario Colby DO Attending Provider, Referring P rovider Active Team Status: Inactive Member Role Status Dates Dr. Santosh Velazquez DO Primary Care Provider Active Dr. Shady Mckeon MD Active Dr. Nazario Colby DO Attending Provider, Referring P rovider Active Team Status: Inactive Member Role Status Dates Dr. Santosh Velazquez DO Primary Care Provider Active Sharon Bernard Attending Provider, Referring Provide r Active Team Status: Active Member Role Status Dates Dr. Santosh Velazquez DO Primary Care Provider Active Start: June 03, 2024 Dr. Brendan Lloyd MD Attending Provider Active Start: June 03, 2024 Dr. Brendan Lloyd MD Referring Provider Active Start: June 03, 2024 Team Status: Active Member Role Status Dates Dr. Santosh Velazquez DO Primary Care Provider Active Start: June 07, 2024 Dr. Blade Dahl MD Attending Provider Active S tart: June 07, 2024 Team Status: Active Member Role Status Dates Dr. Santosh Velazquez DO Primary Care Provider Active Start: June 08, 2024 Jelly Rogers PA, PA Attending Provider Active Start: June 08, 2024 Jelly Rogers PA, PA Referring Provider Active Start: June 08, 2024 Team Status: Active Member Role Status Dates Dr. Santosh Velazquez DO Primary Care Provider Active Start: July 04, 2024 Dr. Brendan Lloyd MD Attending Provider Active Start: July 04, 2024 Dr. Brendan Lloyd MD Referring Provider Active Start: July 04, 2024 Team Status: Active Member Role Status Dates Dr. Santosh Velazquez DO Primary Care Provider Active Start: July 14, 2024 Dr. Jam Cohen MD Attending Provider Active Start: July 14, 2024 Dr. Jam Cohen MD Referring Provider Active Start: July 14, 2024 Team Status: Active Member Role Status Dates Dr. Santosh Velazquez DO Primary Care Provider Active Start: July 18, 2024 Dr. Brendan Lloyd MD Attending Provider Active Start: July 18, 2024 Dr. Brendan Lloyd MD Referring Provider Active Start: July 18, 2024 Team Status: Active Member Role Status Dates Dr. Santosh Velazquez DO Primary Care Provider Active Start: August 10, 2024 Dr. Brendan Lloyd MD Attending Provider Active Start: August 10, 2024 Dr. Brendan Lloyd MD Referring Provider Active Start: August 10, 2024 Team Status: Active Member Role Status Dates Dr. Santosh Velazquez DO Primary Care Provider Active Start: August 15, 2024 Dr. Brendan Lloyd MD Attending Provider Active Start: August 15, 2024 Dr. Brendan Lloyd MD Referring Provider Active Start: August 15, 2024 Spanish Linguist Relationship Specialty Start Date End Date Santosh Velazquez [address] [place] [address] PCP - General Family Medicine 08/16/24 Team Status: Active Member Role/Relationship Status Dates Dr. Santosh Velazquez DO Primary Care Provider Active Team Status: Inactive Member Role/Relationship Status Dates Dr. Santosh Velazquez DO Primary Care Provider Active Start: May 19, 2024 End: May 19, 2024 Dr. Brendan Lloyd MD Attending Provider Active Start: May 19, 2024 End: May 19, 2024 Dr. Brendan Lloyd MD Referring Provider Active Start: May 19, 2024 End: May 19, 2024 Team Status: Inactive Member Role/Relationship Status Dates Dr. Santosh Velazquez DO Primary Care Provider Active Start: May 26, 2024 End: May 26, 2024 Jelly Rogers PA, PA Attending Provider Active Start: May 26, 2024 End: May 26, 2024 Jelly Rogers PA, PA Referring Provider Active Start: May 26, 2024 End: May 26, 2024 Team Status: Inactive Member Role/Relationship Status Dates Dr. Santosh Velazquez DO Primary Care Provider Active Start: June 07, 2024 End: June 07, 2024 Jelly Rogers PA, PA Attending Provider Active Start: June 07, 2024 End: June 07, 2024 Jelly Rogers PA, PA Referring Provider Active Start: June 07, 2024 End: June 07, 2024 Team Status: Active Member Role/Relationship Status Dates Dr. Santosh Velazquez DO Primary Care Provider Active Start: June 07, 2024 Dr. Blade Dahl MD Attending Provider Active S tart: June 07, 2024 Jelly Rogers PA, PA Referring Provider Active Start: June 07, 2024 Team Status: Active Member Role/Relationship Status Dates Dr. Snatosh Velazquez DO Primary Care Provider Active Start: June 07, 2024 Dr. Brendan Lloyd MD Attending Provider Active Start: June 07, 2024 Team Status: Inactive Member Role/Relationship Status Dates Dr. Santosh Velazquez DO Primary Care Provider Active Start: June 08, 2024 End: June 08, 2024 Jelly Rogers PA, PA Attending Provider Active Start: June 08, 2024 End: June 08, 2024 Jelly Rogers PA, PA Referring Provider Active Start: June 08, 2024 End: June 08, 2024 Team Status: Inactive Member Role/Relationship Status Dates Dr. Santosh Velazquez DO Primary Care Provider Active Start: June 13, 2024 End: June 13, 2024 Dr. Brendan Lloyd MD Attending Provider Active Start: June 13, 2024 End: June 13, 2024 Dr. Brendan Lloyd MD Referring Provider Active Start: June 13, 2024 End: June 13, 2024 Team Status: Inactive Member Role/Relationship Status Dates Dr. Santosh Velazquez DO Primary Care Provider Active Start: June 30, 2024 End: June 30, 2024 Dr. Santosh Velazquez DO Referring Provider Active Start: June 30, 2024 End: June 30, 2024 Bud Saez WELDER MANUFACTURE, WELDER MANUFACTURE-C Attending Provider Active S tart: June 30, 2024 End: June 30, 2024 Team Status: Inactive Member Role/Relationship Status Dates Dr. Santosh Velazquez DO Primary Care Provider Active Start: July 05, 2024 End: July 05, 2024 Dr. Vaughn Mcpherson MD Attending Provider Active S tart: July 05, 2024 End: July 05, 2024 Dr. Vaughn Mcpherson MD Referring Provider Active S tart: July 05, 2024 End: July 05, 2024 Team Status: Active Member Role/Relationship Status Dates Dr. Santosh Velazquez DO Primary Care Provider Active Start: July 05, 2024 Dr. Vaughn Mcpherson MD Attending Provider Active S tart: July 05, 2024 Dr. Vaughn Mcpherson MD Referring Provider Active S tart: July 05, 2024 Dr. Vaughn Mcpherson MD Other Provider Active Start : July 05, 2024 Team Status: Active Member Role/Relationship Status Dates Dr. Santosh Velazquez DO Primary Care Provider Active Start: July 05, 2024 Dr. Vaughn Mcpherson MD Referring Provider Active S tart: July 05, 2024 Dr. Vaughn Mcpherson MD Other Provider Active Start : July 05, 2024 Dr. Felipe Velazquez DO Attending Provider Active S tart: July 05, 2024 Team Status: Inactive Member Role/Relationship Status Dates Dr. Santosh Velazquez DO Primary Care Provider Active Start: July 11, 2024 End: July 11, 2024 DAYANARA Baker Attending Provider Active Start: July 11, 2024 End: July 11, 2024 DAYANARA Baker Referring Provider Active Start: July 11, 2024 End: July 11, 2024 Team Status: Active Member Role/Relationship Status Dates Dr. Santosh Velazquez DO Primary Care Provider Active Start: July 11, 2024 Dr. Blade Dahl MD Attending Provider Active S tart: July 11, 2024 DAYANARA Baker Referring Provider Active Start: July 11, 2024 Team Status: Inactive Member Role/Relationship Status Dates Dr. Santosh Velazquez DO Primary Care Provider Active Start: July 13, 2024 End: July 13, 2024 Dr. Brendan Lloyd MD Attending Provider Active Start: July 13, 2024 End: July 13, 2024 Dr. Brendan Lloyd MD Referring Provider Active Start: July 13, 2024 End: July 13, 2024 Team Status: Inactive Member Role/Relationship Status Dates Dr. Santosh Velazquez DO Primary Care Provider Active Start: July 13, 2024 End: July 13, 2024 Dr. Santosh Velazquez DO Referring Provider Active Start: July 13, 2024 End: July 13, 2024 Dr. Vaughn Mcpherson MD Attending Provider Active S tart: July 13, 2024 End: July 13, 2024 Team Status: Inactive Member Role/Relationship Status Dates Dr. Santosh Velazquez DO Primary Care Provider Active Start: July 14, 2024 End: July 14, 2024 Dr. Jam Cohen MD Attending Provider Active Start: July 14, 2024 End: July 14, 2024 Dr. Jam Cohen MD Referring Provider Active Start: July 14, 2024 End: July 14, 2024 Team Status: Inactive Member Role/Relationship Status Dates Dr. Santosh Velazquez DO Primary Care Provider Active Start: August 10, 2024 End: August 13, 2024 Dr. Brendan Lloyd MD Attending Provider Active Start: August 10, 2024 End: August 13, 2024 Dr. Brendan Lloyd MD Referring Provider Active Start: August 10, 2024 End: August 13, 2024 Team Status: Inactive Member Role/Relationship Status Dates Dr. Santosh Velazquez DO Primary Care Provider Active Start: August 10, 2024 End: August 10, 2024 Dr. Santosh Velazquez DO Referring Provider Active Start: August 10, 2024 End: August 10, 2024 Bud Saez WELDER MANUFACTURE, WELDER MANUFACTURE-C Attending Provider Active S tart: August 10, 2024 End: August 10, 2024 Team Status: Inactive Member Role/Relationship Status Dates Dr. Santosh Velazquez DO Primary Care Provider Active Start: August 16, 2024 End: August 16, 2024 Dr. Santosh Velazquez DO Referring Provider Active Start: August 16, 2024 End: August 16, 2024 Dr. Nazario Colby DO Attending Provider Active Start: August 16, 2024 End: August 16, 2024 Team Status: Inactive Member Role/Relationship Status Dates Dr. Santosh Velazquez DO Primary Care Provider Active Start: August 29, 2024 End: September 12, 2024 Dr. Brendan Lloyd MD Attending Provider Active Start: August 29, 2024 End: September 12, 2024 Dr. Brendan Lloyd MD Referring Provider Active Start: August 29, 2024 End: September 12, 2024 Team Status: Inactive Member Role/Relationship Status Dates Dr. Santosh Velazquez DO Primary Care Provider Active Start: August 31, 2024 End: August 31, 2024 Dr. Santosh Velazquez DO Attending Provider Active Start: August 31, 2024 End: August 31, 2024 Dr. Santosh Velazquez DO Referring Provider Active Start: August 31, 2024 End: August 31, 2024 Team Status: Active Member Role/Relationship Status Dates Dr. Santosh Velazquez DO Primary Care Provider Active Start: September 08, 2024 Dr. Santosh Velazquez DO Attending Provider Active Start: September 08, 2024 Dr. Santosh Velazquez DO Referring Provider Active Start: September 08, 2024 Team Status: Inactive Member Role/Relationship Status Dates Dr. Santosh Velazquez DO Primary Care Provider Active Start: September 08, 2024 End: September 08, 2024 Dr. Santosh Velazquez DO Attending Provider Active Start: September 08, 2024 End: September 08, 2024 Dr. Santosh Velazquez DO Referring Provider Active Start: September 08, 2024 End: September 08, 2024 Team Status: Active Member Role/Relationship Status Dates Dr. Santosh Velazquez DO Primary Care Provider Active Start: September 13, 2024 Dr. Santosh Velazquez DO Attending Provider Active Start: September 13, 2024 Dr. Santosh Velazquez DO Referring Provider Active Start: September 13, 2024 Team Status: Inactive Member Role/Relationship Status Dates Dr. Santosh Velazquez DO Primary Care Provider Active Start: May 26, 2024 End: May 26, 2024 Jelly Rogers PA, PA Attending Provider Active Start: May 26, 2024 End: May 26, 2024 Jelly Rogers PA, PA Referring Provider Active Start: May 26, 2024 End: May 26, 2024 Team Status: Inactive Member Role/Relationship Status Dates Dr. Santosh Velazquez DO Primary Care Provider Active Start: June 07, 2024 End: June 07, 2024 Jelly Rogers PA, PA Attending Provider Active Start: June 07, 2024 End: June 07, 2024 Jelly Rogers PA, PA Referring Provider Active Start: June 07, 2024 End: June 07, 2024 Team Status: Active Member Role/Relationship Status Dates Dr. Santosh Velazquez DO Primary Care Provider Active Start: June 07, 2024 Dr. Blade Dahl MD Attending Provider Active S tart: June 07, 2024 Jelly Rogers PA, PA Referring Provider Active Start: June 07, 2024 Team Status: Active Member Role/Relationship Status Dates Dr. Santosh Velazquez DO Primary Care Provider Active Start: June 07, 2024 Dr. Brendan Lloyd MD Attending Provider Active Start: June 07, 2024 Team Status: Inactive Member Role/Relationship Status Dates Dr. Santosh Velazquez DO Primary Care Provider Active Start: June 08, 2024 End: June 08, 2024 Jelly Rogers PA, PA Attending Provider Active Start: June 08, 2024 End: June 08, 2024 Jelly Rogers PA, PA Referring Provider Active Start: June 08, 2024 End: June 08, 2024 Team Status: Inactive Member Role/Relationship Status Dates Dr. Santosh Velazquez DO Primary Care Provider Active Start: June 13, 2024 End: June 13, 2024 Dr. Brendan Lloyd MD Attending Provider Active Start: June 13, 2024 End: June 13, 2024 Dr. Brendan Lloyd MD Referring Provider Active Start: June 13, 2024 End: June 13, 2024 Team Status: Inactive Member Role/Relationship Status Dates Dr. Santosh Velazquez DO Primary Care Provider Active Start: June 30, 2024 End: June 30, 2024 Dr. Santosh Velazquez DO Referring Provider Active Start: June 30, 2024 End: June 30, 2024 Bud Seaz WELDER MANUFACTURE, WELDER MANUFACTURE-C Attending Provider Active S tart: June 30, 2024 End: June 30, 2024 Team Status: Inactive Member Role/Relationship Status Dates Dr. Santosh Velazquez DO Primary Care Provider Active Start: July 05, 2024 End: July 05, 2024 Dr. Vaughn Mcpherson MD Attending Provider Active S tart: July 05, 2024 End: July 05, 2024 Dr. Vaughn Mcpherson MD Referring Provider Active S tart: July 05, 2024 End: July 05, 2024 Team Status: Active Member Role/Relationship Status Dates Dr. Santosh Velazquez DO Primary Care Provider Active Start: July 05, 2024 Dr. Vaughn Mcpherson MD Attending Provider Active S tart: July 05, 2024 Dr. Vaughn Mcpherson MD Referring Provider Active S tart: July 05, 2024 Dr. Vaughn Mcpherson MD Other Provider Active Start : July 05, 2024 Team Status: Active Member Role/Relationship Status Dates Dr. Santosh Velazquez DO Primary Care Provider Active Start: July 05, 2024 Dr. Vaughn Mcpherson MD Referring Provider Active S tart: July 05, 2024 Dr. Vaughn Mcpherson MD Other Provider Active Start : July 05, 2024 Dr. Felipe Velazquez DO Attending Provider Active S tart: July 05, 2024 Team Status: Inactive Member Role/Relationship Status Dates Dr. Santosh Velazquez DO Primary Care Provider Active Start: July 11, 2024 End: July 11, 2024 DAYANARA Baker Attending Provider Active Start: July 11, 2024 End: July 11, 2024 DAYANARA Baker Referring Provider Active Start: July 11, 2024 End: July 11, 2024 Team Status: Active Member Role/Relationship Status Dates Dr. Santosh Velazquez DO Primary Care Provider Active Start: July 11, 2024 Dr. Blade Dahl MD Attending Provider Active S tart: July 11, 2024 DAYANARA Baker Referring Provider Active Start: July 11, 2024 Team Status: Inactive Member Role/Relationship Status Dates Dr. Santosh Velazquez DO Primary Care Provider Active Start: July 13, 2024 End: July 13, 2024 Dr. Brendan Lloyd MD Attending Provider Active Start: July 13, 2024 End: July 13, 2024 Dr. Brendan Lloyd MD Referring Provider Active Start: July 13, 2024 End: July 13, 2024 Team Status: Inactive Member Role/Relationship Status Dates Dr. Santosh Velazquez DO Primary Care Provider Active Start: July 13, 2024 End: July 13, 2024 Dr. Santosh Velazquez DO Referring Provider Active Start: July 13, 2024 End: July 13, 2024 Dr. Vaughn Mcpherson MD Attending Provider Active S tart: July 13, 2024 End: July 13, 2024 Team Status: Inactive Member Role/Relationship Status Dates Dr. Santosh Velazquez DO Primary Care Provider Active Start: July 14, 2024 End: July 14, 2024 Dr. Jam Cohen MD Attending Provider Active Start: July 14, 2024 End: July 14, 2024 Dr. Jam Cohen MD Referring Provider Active Start: July 14, 2024 End: July 14, 2024 Team Status: Inactive Member Role/Relationship Status Dates Dr. Santosh Velazquez DO Primary Care Provider Active Start: August 10, 2024 End: August 13, 2024 Dr. Brendan Lloyd MD Attending Provider Active Start: August 10, 2024 End: August 13, 2024 Dr. Brendan Lloyd MD Referring Provider Active Start: August 10, 2024 End: August 13, 2024 Team Status: Inactive Member Role/Relationship Status Dates Dr. Santosh Velazquez DO Primary Care Provider Active Start: August 10, 2024 End: August 10, 2024 Dr. Santosh Velazquez DO Referring Provider Active Start: August 10, 2024 End: August 10, 2024 Bud Saez WELDER MANUFACTURE, WELDER MANUFACTURE-C Attending Provider Active S tart: August 10, 2024 End: August 10, 2024 Team Status: Inactive Member Role/Relationship Status Dates Dr. Santosh Velazquez DO Primary Care Provider Active Start: August 16, 2024 End: August 16, 2024 Dr. Santosh Velazquez DO Referring Provider Active Start: August 16, 2024 End: August 16, 2024 Dr. Nazario Colby DO Attending Provider Active Start: August 16, 2024 End: August 16, 2024 Team Status: Inactive Member Role/Relationship Status Dates Dr. Santosh Velazquez DO Primary Care Provider Active Start: August 29, 2024 End: September 12, 2024 Dr. Brendan Lloyd MD Attending Provider Active Start: August 29, 2024 End: September 12, 2024 Dr. Brendan Lloyd MD Referring Provider Active Start: August 29, 2024 End: September 12, 2024 Team Status: Inactive Member Role/Relationship Status Dates Dr. Santosh Velazquez DO Primary Care Provider Active Start: August 31, 2024 End: August 31, 2024 Dr. Santosh Velazquez DO Attending Provider Active Start: August 31, 2024 End: August 31, 2024 Dr. Santosh Velazquez DO Referring Provider Active Start: August 31, 2024 End: August 31, 2024 Team Status: Inactive Member Role/Relationship Status Dates Dr. Santosh Velazquez DO Primary Care Provider Active Start: September 08, 2024 End: September 08, 2024 Dr. Santosh Velazquez DO Attending Provider Active Start: September 08, 2024 End: September 08, 2024 Dr. Santosh Velazquez DO Referring Provider Active Start: September 08, 2024 End: September 08, 2024 Team Status: Inactive Member Role/Relationship Status Dates Dr. Santosh Velazquez DO Primary Care Provider Active Start: September 13, 2024 End: September 13, 2024 Dr. Santosh Velazquez DO Attending Provider Active Start: September 13, 2024 End: September 13, 2024 Dr. Santosh Velazquez DO Referring Provider Active Start: September 13, 2024 End: September 13, 2024 Spanish Linguist Relationship Specialty Start Date End Date Santosh Velazquez [address] [place] [address] PCP - General Family Medicine 08/16/24 Team Status: Inactive Member Role/Relationship Status Dates Dr. Santosh Velazquez DO Primary Care Provider Active Start: June 30, 2024 End: June 30, 2024 Dr. Santosh Velazquez DO Referring Provider Active Start: June 30, 2024 End: June 30, 2024 Bud Saez [employer], [employer]-C Attending Provider Active S tart: June 30, 2024 End: June 30, 2024 Team Status: Inactive Member Role/Relationship Status Dates Dr. Santosh Velazquez DO Primary Care Provider Active Start: July 05, 2024 End: July 05, 2024 Dr. Vaughn Mcpherson MD Attending Provider Active S tart: July 05, 2024 End: July 05, 2024 Dr. Vaughn Mcpherson MD Referring Provider Active S tart: July 05, 2024 End: July 05, 2024 Team Status: Active Member Role/Relationship Status Dates Dr. Santosh Velazquez DO Primary Care Provider Active Start: July 05, 2024 Dr. Vaughn Mcpherson MD Attending Provider Active S tart: July 05, 2024 Dr. Vaughn Mcpherson MD Referring Provider Active S tart: July 05, 2024 Dr. Vaughn Mcpherson MD Other Provider Active Start : July 05, 2024 Team Status: Active Member Role/Relationship Status Dates Dr. Santosh Velazquez DO Primary Care Provider Active Start: July 05, 2024 Dr. Vaughn Mcpherson MD Referring Provider Active S tart: July 05, 2024 Dr. Vaughn Mcpherson MD Other Provider Active Start : July 05, 2024 Dr. Felipe Velazquez DO Attending Provider Active S tart: July 05, 2024 Team Status: Inactive Member Role/Relationship Status Dates Dr. Santosh Velazquez DO Primary Care Provider Active Start: July 11, 2024 End: July 11, 2024 Jelly NICHOLE PA Attending Provider Active Start: July 11, 2024 End: July 11, 2024 Jelly NICHOLE PA Referring Provider Active Start: July 11, 2024 End: July 11, 2024 Team Status: Active Member Role/Relationship Status Dates Dr. Santosh Velazquez DO Primary Care Provider Active Start: July 11, 2024 Dr. Blade Dahl MD Attending Provider Active S tart: July 11, 2024 Jelly NICHOLE PA Referring Provider Active Start: July 11, 2024 Team Status: Inactive Member Role/Relationship Status Dates Dr. Santosh Velazquez DO Primary Care Provider Active Start: July 13, 2024 End: July 13, 2024 Dr. Brendan Lloyd MD Attending Provider Active Start: July 13, 2024 End: July 13, 2024 Dr. Brendan Lloyd MD Referring Provider Active Start: July 13, 2024 End: July 13, 2024 Team Status: Inactive Member Role/Relationship Status Dates Dr. Santosh Velazquez DO Primary Care Provider Active Start: July 13, 2024 End: July 13, 2024 Dr. Santosh Velazquez DO Referring Provider Active Start: July 13, 2024 End: July 13, 2024 Dr. Vaughn Mcpherson MD Attending Provider Active S tart: July 13, 2024 End: July 13, 2024 Team Status: Inactive Member Role/Relationship Status Dates Dr. Santosh Velazquez DO Primary Care Provider Active Start: July 14, 2024 End: July 14, 2024 Dr. Jam Cohen MD Attending Provider Active Start: July 14, 2024 End: July 14, 2024 Dr. Jam Cohen MD Referring Provider Active Start: July 14, 2024 End: July 14, 2024 Team Status: Inactive Member Role/Relationship Status Dates Dr. Santosh Velazquez DO Primary Care Provider Active Start: August 10, 2024 End: August 13, 2024 Dr. Brendan Lloyd MD Attending Provider Active Start: August 10, 2024 End: August 13, 2024 Dr. Brendan Lloyd MD Referring Provider Active Start: August 10, 2024 End: August 13, 2024 Team Status: Inactive Member Role/Relationship Status Dates Dr. Santosh Velazquez DO Primary Care Provider Active Start: August 10, 2024 End: August 10, 2024 Dr. Santosh Velazquez DO Referring Provider Active Start: August 10, 2024 End: August 10, 2024 Bud Saez [employer]EL[employer], [employer]-C Attending Provider Active S tart: August 10, 2024 End: August 10, 2024 Team Status: Inactive Member Role/Relationship Status Dates Dr. Santosh Velazquez DO Primary Care Provider Active Start: August 16, 2024 End: August 16, 2024 Dr. Santosh Velazquez DO Referring Provider Active Start: August 16, 2024 End: August 16, 2024 Dr. Nazario Colby DO Attending Provider Active Start: August 16, 2024 End: August 16, 2024 Team Status: Inactive Member Role/Relationship Status Dates Dr. Santosh Velazquez DO Primary Care Provider Active Start: August 29, 2024 End: September 12, 2024 Dr. Brendan Lloyd MD Attending Provider Active Start: August 29, 2024 End: September 12, 2024 Dr. Brendan Lloyd MD Referring Provider Active Start: August 29, 2024 End: September 12, 2024 Team Status: Inactive Member Role/Relationship Status Dates Dr. Santosh Velazquez DO Primary Care Provider Active Start: August 31, 2024 End: August 31, 2024 Dr. Santosh Velazquez DO Attending Provider Active Start: August 31, 2024 End: August 31, 2024 Dr. Santosh Velazquez DO Referring Provider Active Start: August 31, 2024 End: August 31, 2024 Team Status: Inactive Member Role/Relationship Status Dates Dr. Santosh Velazquez DO Primary Care Provider Active Start: September 08, 2024 End: September 08, 2024 Dr. Santosh Velazquez DO Attending Provider Active Start: September 08, 2024 End: September 08, 2024 Dr. Santosh Velazquez DO Referring Provider Active Start: September 08, 2024 End: September 08, 2024 Team Status: Inactive Member Role/Relationship Status Dates Dr. Santosh Velazquez DO Primary Care Provider Active Start: September 13, 2024 End: September 13, 2024 Dr. Santosh Velazquez DO Attending Provider Active Start: September 13, 2024 End: September 13, 2024 Dr. Santosh Velazquez DO Referring Provider Active Start: September 13, 2024 End: September 13, 2024 Team Status: Active Member Role/Relationship Status Dates Dr. Santosh Velazquez DO Primary Care Provider Active Start: September 13, 2024 Dr. Santosh Velazquez DO Referring Provider Active Start: September 13, 2024 Dr. Vaughn Mcpherson MD Attending Provider Active S tart: September 13, 2024 Team Status: Inactive Member Role/Relationship Status Dates Dr. Santosh Velazquez DO Primary Care Provider Active Start: October 17, 2024 End: October 17, 2024 Dr. Santosh Velazquez DO Referring Provider Active Start: October 17, 2024 End: October 17, 2024 Dr. Nazario Colby DO Attending Provider Active Start: October 17, 2024 End: October 17, 2024 Team Status: Active Member Role/Relationship Status Dates Dr. Santosh Velazquez DO Primary Care Provider Active Start: October 17, 2024 Dr. Nazario Colby DO Attending Provider Active Start: October 17, 2024 Dr. Nazario Colby DO Referring Provider Active Start: October 17, 2024 Team Status: Inactive Member Role/Relationship Status Dates Dr. Santosh Velazquez DO Primary Care Provider Active Start: July 13, 2024 End: July 13, 2024 Dr. Brendan Lloyd MD Attending Provider Active Start: July 13, 2024 End: July 13, 2024 Dr. Brendan Lloyd MD Referring Provider Active Start: July 13, 2024 End: July 13, 2024 Team Status: Inactive Member Role/Relationship Status Dates Dr. Santosh Velazquez DO Primary Care Provider Active Start: July 13, 2024 End: July 13, 2024 Dr. Santosh Velazquez DO Referring Provider Active Start: July 13, 2024 End: July 13, 2024 Dr. Vaughn Mcpherson MD Attending Provider Active S tart: July 13, 2024 End: July 13, 2024 Team Status: Inactive Member Role/Relationship Status Dates Dr. Santosh Velazquez DO Primary Care Provider Active Start: July 14, 2024 End: July 14, 2024 Dr. Jam Cohen MD Attending Provider Active Start: July 14, 2024 End: July 14, 2024 Dr. Jam Cohen MD Referring Provider Active Start: July 14, 2024 End: July 14, 2024 Team Status: Inactive Member Role/Relationship Status Dates Dr. Santosh Velazquez DO Primary Care Provider Active Start: August 10, 2024 End: August 13, 2024 Dr. Brendan Lloyd MD Attending Provider Active Start: August 10, 2024 End: August 13, 2024 Dr. Brendan Lloyd MD Referring Provider Active Start: August 10, 2024 End: August 13, 2024 Team Status: Inactive Member Role/Relationship Status Dates Dr. Santosh Velazquez DO Primary Care Provider Active Start: August 10, 2024 End: August 10, 2024 Dr. Santosh Velazquez DO Referring Provider Active Start: August 10, 2024 End: August 10, 2024 Bud Saez [employer], [employer]-C Attending Provider Active S tart: August 10, 2024 End: August 10, 2024 Team Status: Inactive Member Role/Relationship Status Dates Dr. Santosh Velazquez DO Primary Care Provider Active Start: August 16, 2024 End: August 16, 2024 Dr. Santosh Velazquez DO Referring Provider Active Start: August 16, 2024 End: August 16, 2024 Dr. Nazario Colby DO Attending Provider Active Start: August 16, 2024 End: August 16, 2024 Team Status: Inactive Member Role/Relationship Status Dates Dr. Santosh Velazquez DO Primary Care Provider Active Start: August 29, 2024 End: September 12, 2024 Dr. Brendan Lloyd MD Attending Provider Active Start: August 29, 2024 End: September 12, 2024 Dr. Brendan Lloyd MD Referring Provider Active Start: August 29, 2024 End: September 12, 2024 Team Status: Inactive Member Role/Relationship Status Dates Dr. Santosh Velazquez DO Primary Care Provider Active Start: August 31, 2024 End: August 31, 2024 Dr. Santosh Velazquez DO Attending Provider Active Start: August 31, 2024 End: August 31, 2024 Dr. Santosh Velazquez DO Referring Provider Active Start: August 31, 2024 End: August 31, 2024 Team Status: Inactive Member Role/Relationship Status Dates Dr. Santosh Velazquez DO Primary Care Provider Active Start: September 08, 2024 End: September 08, 2024 Dr. Santosh Velazquez DO Attending Provider Active Start: September 08, 2024 End: September 08, 2024 Dr. Santosh Velazquez DO Referring Provider Active Start: September 08, 2024 End: September 08, 2024 Team Status: Inactive Member Role/Relationship Status Dates Dr. Santosh Velazquez DO Primary Care Provider Active Start: September 13, 2024 End: September 13, 2024 Dr. Santosh Velazquez DO Attending Provider Active Start: September 13, 2024 End: September 13, 2024 Dr. Santosh Velazquez DO Referring Provider Active Start: September 13, 2024 End: September 13, 2024 Team Status: Active Member Role/Relationship Status Dates Dr. Santosh Velazquez DO Primary Care Provider Active Start: September 13, 2024 Dr. Santosh Velazquez DO Referring Provider Active Start: September 13, 2024 Dr. Vaughn Mcpherson MD Attending Provider Active S tart: September 13, 2024 Team Status: Inactive Member Role/Relationship Status Dates Dr. Santosh Velazquez DO Primary Care Provider Active Start: October 17, 2024 End: October 17, 2024 Dr. Santosh Velazquez DO Referring Provider Active Start: October 17, 2024 End: October 17, 2024 Dr. Nazario Colby DO Attending Provider Active Start: October 17, 2024 End: October 17, 2024 Team Status: Active Member Role/Relationship Status Dates Dr. Santosh Velazquez DO Primary Care Provider Active Start: October 17, 2024 Dr. Nazario Colby DO Attending Provider Active Start: October 17, 2024 Dr. Nazario Colby DO Referring Provider Active Start: October 17, 2024 Team Status: Inactive Member Role/Relationship Status Dates Dr. Santosh Velazquez DO Primary Care Provider Active Start: November 03, 2024 End: November 03, 2024 AURY MORALES Attending Provider Active Start: November 03, 2024 End: November 03, 2024 AURY MORALES Referring Provider Active Start: November 03, 2024 End: November 03, 2024 Team Status: Active Member Role/Relationship Status Dates Dr. Santosh Velazquez DO Primary Care Provider Active Start: November 03, 2024 Dr. Vaughn Mcpherson MD Attending Provider Active S tart: November 03, 2024 Team Status: Inactive Member Role/Relationship Status Dates Dr. Santosh Velazquez DO Primary Care Provider Active Start: November 10, 2024 End: November 10, 2024 Dr. Santosh Velazquez DO Referring Provider Active Start: November 10, 2024 End: November 10, 2024 Bud Saez W[employer], [employer]-C Attending Provider Active S tart: November 10, 2024 End: November 10, 2024 Spanish Linguist Relationship Specialty Start Date End Date Santosh Velazquez [address] [place] [address] PCP - General Family Medicine 08/16/24 Team Status: Inactive Member Role/Relationship Status Dates Dr. Santosh Velazquez DO Primary Care Provider Active Start: August 10, 2024 End: August 13, 2024 Dr. Brendan Lloyd MD Attending Provider Active Start: August 10, 2024 End: August 13, 2024 Dr. Brendan Lloyd MD Referring Provider Active Start: August 10, 2024 End: August 13, 2024 Team Status: Inactive Member Role/Relationship Status Dates Dr. Santosh Velazquez DO Primary Care Provider Active Start: August 10, 2024 End: August 10, 2024 Dr. Santosh Velazquez DO Referring Provider Active Start: August 10, 2024 End: August 10, 2024 Bud Saez WEL[employer], [employer]-C Attending Provider Active S tart: August 10, 2024 End: August 10, 2024 Team Status: Inactive Member Role/Relationship Status Dates Dr. Santosh Velazquez DO Primary Care Provider Active Start: August 16, 2024 End: August 16, 2024 Dr. Santosh Velazquez DO Referring Provider Active Start: August 16, 2024 End: August 16, 2024 Dr. Nazario Colby DO Attending Provider Active Start: August 16, 2024 End: August 16, 2024 Team Status: Inactive Member Role/Relationship Status Dates Dr. Santosh Velazquez DO Primary Care Provider Active Start: August 29, 2024 End: September 12, 2024 Dr. Brendan Lloyd MD Attending Provider Active Start: August 29, 2024 End: September 12, 2024 Dr. Brendan Lloyd MD Referring Provider Active Start: August 29, 2024 End: September 12, 2024 Team Status: Inactive Member Role/Relationship Status Dates Dr. Santosh Velazquez DO Primary Care Provider Active Start: August 31, 2024 End: August 31, 2024 Dr. Santosh Velazquez DO Attending Provider Active Start: August 31, 2024 End: August 31, 2024 Dr. Santosh Velazquez DO Referring Provider Active Start: August 31, 2024 End: August 31, 2024 Team Status: Inactive Member Role/Relationship Status Dates Dr. Santosh Velazquez DO Primary Care Provider Active Start: September 08, 2024 End: September 08, 2024 Dr. Santosh Velazquez DO Attending Provider Active Start: September 08, 2024 End: September 08, 2024 Dr. Santosh Velazquez DO Referring Provider Active Start: September 08, 2024 End: September 08, 2024 Team Status: Inactive Member Role/Relationship Status Dates Dr. Santosh Velazquez DO Primary Care Provider Active Start: September 13, 2024 End: September 13, 2024 Dr. Santosh Velazquez DO Attending Provider Active Start: September 13, 2024 End: September 13, 2024 Dr. Santosh Velazquez DO Referring Provider Active Start: September 13, 2024 End: September 13, 2024 Team Status: Active Member Role/Relationship Status Dates Dr. Santosh Velazquez DO Primary Care Provider Active Start: September 13, 2024 Dr. Santosh Velazquez DO Referring Provider Active Start: September 13, 2024 Dr. Vaughn Mcpherson MD Attending Provider Active S tart: September 13, 2024 Team Status: Inactive Member Role/Relationship Status Dates Dr. Santosh Velazquez DO Primary Care Provider Active Start: October 17, 2024 End: October 17, 2024 Dr. Santosh Velazquez DO Referring Provider Active Start: October 17, 2024 End: October 17, 2024 Dr. Nazario Colby DO Attending Provider Active Start: October 17, 2024 End: October 17, 2024 Team Status: Active Member Role/Relationship Status Dates Dr. Santosh Velazquez DO Primary Care Provider Active Start: October 17, 2024 Dr. Nazario Colby DO Attending Provider Active Start: October 17, 2024 Dr. Nazario Colby DO Referring Provider Active Start: October 17, 2024 Team Status: Inactive Member Role/Relationship Status Dates Dr. Santosh Velazquez DO Primary Care Provider Active Start: November 03, 2024 End: November 03, 2024 AURY MORALES Attending Provider Active Start: November 03, 2024 End: November 03, 2024 AURY MORALES Referring Provider Active Start: November 03, 2024 End: November 03, 2024 Team Status: Active Member Role/Relationship Status Dates Dr. Santosh Velazquez DO Primary Care Provider Active Start: November 03, 2024 Dr. Vaughn Mcpherson MD Attending Provider Active S tart: November 03, 2024 Team Status: Inactive Member Role/Relationship Status Dates Dr. Santosh Velazquez DO Primary Care Provider Active Start: November 10, 2024 End: November 10, 2024 Dr. Santosh Velazquez DO Referring Provider Active Start: November 10, 2024 End: November 10, 2024 Bud aSez WEL[employer]UFACTURE, WEL[employer]-C Attending Provider Active S tart: November 10, 2024 End: November 10, 2024 Team Status: Active Member Role/Relationship Status Dates Dr. Santosh Velazquez DO Primary Care Provider Active Start: November 16, 2024 Bud Saez WELDER [employer]UFACTURE, WEL[employer]-C Attending Provider Active S tart: November 16, 2024 Bud Saez WELDER MANUFACTURE, WEL[employer]-C Referring Provider Active S tart: November 16, 2024 Team Status: Inactive Member Role/Relationship Status Dates Dr. Santosh Velazquez DO Primary Care Provider Active Start: November 24, 2024 End: November 24, 2024 Dr. Santosh Velazquez DO Referring Provider Active Start: November 24, 2024 End: November 24, 2024 DAYANARA Montenegro Attending Provider Active Star t: November 24, 2024 End: November 24, 2024 Spanish Linguist Relationship Specialty Start Date End Date Santosh Velazquez [address] [place] [address] PCP - General Family Medicine 6/3/25 Spanish Linguist Relationship Specialty Start Date End Date Santosh Velazquez R [address] [place] [address] PCP - General Family Medicine 08/16/24 Spanish Linguist Relationship Specialty Start Date End Date Santosh Velazquez R [address] [place] [address] PCP - General Family Medicine 08/16/24 Spanish Linguist Relationship Specialty Start Date End Date Santosh Velazquez R [address] [place] [address] PCP - General Family Medicine 08/16/24 Spanish Linguist Relationship Specialty Start Date End Date Santosh Velazquez R [address] [place] [address] PCP - General Family Medicine 08/16/24 Gay Norwood, service parts coordinatorBuilding Engineer Manager 12/27/24 Spanish Linguist Relationship Specialty Start Date End Date Santosh Velazquez R [address] [place] [address] PCP - General Family Medicine 08/16/24 Gay Norwood, service parts coordinatorBuilding Engineer Manager 12/27/24 Spanish Linguist Relationship Specialty Start Date End Date Santosh Velazquez R [address] [place] [address] PCP - General Family Medicine 08/16/24 Gay Norwood, service parts coordinatorBuilding Engineer Manager 12/27/24 Source Comments (unrecognize d section and content) In the event this informatio n is protected by the Federal Confidentiality of Alcohol and Drug Abuse Patient Records regulations: The Federal rules restrict any use of the information to criminally investigate or prosecute any alcohol or drug abuse patient.[facility] the event this information is protected by the Federal Confidentiality of Alcohol and Drug Abuse Patient Records regulations: The Federal rules restrict any use of the information to criminally investigate or prosecute any alcohol or drug abuse patient.[facility] Reason for Visit (unrecogniz ed section and content) Reason Comments Opened In Error Reason Comments Appointment Appointment Reason Comments Coronary Artery Disease Atrial Fibrillation Sleep Apnea Hypertension Hyperlipidemia Carotid Artery Disease Congestive Heart Failure Systolic Hypothyroidism Claudication COPD Reason Comments 3 Month Follow Up Reason Comments Coronary Artery Disease Atrial Fibrillation Persistent Hypertension Hyperlipidemia Sleep Apnea Congestive Heart Failure systolic Carotid Artery Disease Hypothyroidism COPD Reason Onset Date Comments Transitional Care Management Outreach 01/11/2025 Telephone Visit 01/11/2025 Scheduled Active and Recently Administ ered Medications (unrecognized section and content) Medication Order 12/17/2024 12/18/2024 12/19/2024 vancomycin (Vancocin) 1,000 mg in sodium chloride 0.9 % 250 mL IVPB (Vial Mate) (COMPLETED) 1,000 mg, IntraVENous, at 166.7 mL/hr, Administer over 90 Minutes, Once, On Thu12/19/24 at 0630, For 1 dose, Preprocedure, Please send to EP lab with patient Vial Mate, Suspected Indication (Select all that apply): Surgical Prophylaxis 0756 (New Bag - Prov ider: David Garay CRNA) Continuous Medication Order 12/17/2024 12/18/2024 12/19/2024 lactated ringers infusion 125 mL/hr, IntraVENous, Continuous, Starting on Thu12/19/24 at 0915, Recovery (only) 0915 (Canceled Entry - Provider: Automatic Discharge Provider - Comment: Automatically canceled at discontinue of medication order) PRN Medication Order 12/17/2024 12/18/2024 12/19/2024 acetaminophen (Tylenol) tablet 650 mg 650 mg, Oral, Every 4 hours PRN, mild pain (1-3), Fever > 100.5 F (38 C), Starting on Thu12/19/24 at 0906, Recovery & On Unit, Maximum dose of acetaminophen is 4000 mg from all sources in 24 hours. bupivacaine PF (Marcaine) 0.5 % injection (CANCELED) As needed, Starting on Thu12/19/24 at 0816, Intraprocedure 0816 (Given - Provid er: Ulises Perdomo MD)0818 (Given - Provider: Ulises Perdomo MD) gentamicin (Garamycin) 80 mg in sodium chloride 0.9 % 100 mL irrigation (CANCELED) Irrigation, As needed, Starting on Thu12/19/24 at 0845, Intraprocedure 0845 (Given - Provid er: Ulises Perdomo MD) lidocaine (Xylocaine) 2 % injection (CANCELED) Infiltration, As needed, Starting on Thu12/19/24 at 0816, Intraprocedure 0816 (Given - Provid er: Ulises Perdomo MD)0818 (Given - Provider: Ulises Perdomo MD) sodium chloride 0.9 % infusion (CANCELED) 5-250 mL/hr, IntraVENous, PRN, if patient receiving piggyback infusions and maintenance fluids are not ordered OR KVO fluids to protect IV site / prevent frequent line interruptions / long duration, Starting on Thu12/19/24 at 0624, Preprocedure, For piggyback infusion, administer at same rate as piggyback for a total of 25 mL. Enter 25 mL into dose field and piggyback rate into rate field of order. If piggyback is infusing at a rate less than 100 mL/hr, enter 25 mL into dose field and 100 mL/hr into rate field of order. For KVO fluids, enter rate of 20 mL/hr or less into rate field of order. 0750 (New Bag - Prov ider: David Garay CRNA)0848 (Stopped - Provider: David Garay CRNA) FOR RECORDS PERTAINING TO PATIENTS WHO ARE [...] BE BASED ON THE PRIMARY CLINICAL RECORDS. [facility]. provides no warranty or guarantee of the accuracy or completeness of information in this document.
--- NOTE | 2025-03-15 19:45 | EX.ED.DYSGE1 ---
HPI History of Present Illness Chief Complaint: Nosebleed Informant: patient and family Narrative Narrative: Patient is a 79-year-old male with a history of A-fib and 13 cardiac stents, presenting with epistaxis. - Onset around 8068-8003 today. - Currently on Plavix and Eliquis. - Reports bleeding primarily from right nostril, with sensation of blood running down the back of the throat. - Denies any recent trauma or manipulation of the nose. - Has experienced similar episodes 2-3 times before, but bleeding usually stops; this episode has been persistent. - Bleeding began while bending over to work on a table; stopped when sitting upright, but resumed with further activity. - Tried lying down with head back and using tissue; did not apply direct pressure. - Reports feeling a little dizzy but otherwise well; denies syncope. [facility] Medical History ICD (implantable cardioverter-defibrillator), single, in situ Acute exacerbation of chronic heart failure Atrial fibrillation with RVR Thyroid disease High cholesterol Back pain Former smoker CPAP (continuous positive airway pressure) dependence Sleep apnea Emphysema, unspecified History of pain when walking History of edema History of echocardiogram History of atrial fibrillation Primary malignant neoplasm of prostate with high risk of recurrence due to [place] score of 8 to 10 and PSA greater than 20 Nocturia Spermatocele of epididymis Prostate cancer Dyslipidemia 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 Bilateral lower extremity edema Carotid artery disease Peripheral arterial disease Paroxysmal atrial fibrillation Claudication of both lower extremities Aortic valve stenosis Bradycardia senior living current use of amiodarone Phimosis Hypothyroidism Encounter for circumcision CAD (coronary artery disease) Wears hearing aid Wears glasses Wears dentures Cancer Ambulates with cane Gout Easy bruising Excessive bleeding History of hiatal hernia Gastric reflux Former smoker Shortness of breath on exertion Leg cramps History of heart attack History of stress test Cardiology follow-up encounter History of irregular heartbeat Chest pain Abnormal stress test Abnormal computed tomography of cecum and terminal ileum Testicular discomfort Right inguinal hernia Peripheral neuritis of left foot Carotid stenosis, bilateral Essential hypertension Arthritis Old myocardial infarction Atherosclerotic heart disease of crow coronary artery without angina pectoris COPD (chronic obstructive pulmonary disease) Hypertension Hyperlipidemia Home Medications ?Medication ?Instructions ?Recorded ?Last Taken ?Type clopidogrel 75 mg tablet (Plavix) 75 mg PO QDAY CLOTTING 05/22/17 11/08/23 History pantoprazole 40 mg tablet,delayed 40 mg PO QDAY GERD 05/22/17 07/05/24 History release albuterol sulfate 90 mcg/actuation 2 puff inhalation Q6H PRN Wheezing 07/20/17 11/09/21 History aerosol inhaler (ProAir HFA) cholecalciferol (vitamin D3) 25 3,000 unit PO DAILY VITAMIN 04/01/18 11/08/23 History mcg (1,000 unit) capsule tiotropium bromide 2.5 2 inh inhalation QAM COPD 01/23/21 11/09/23 History mcg/actuation mist for inhalation (Spiriva Respimat) apixaban 5 mg tablet (Eliquis) 5 mg PO BID BLOOD THINNER 04/07/23 07/05/24 History levothyroxine 75 mcg capsule 75 mcg PO DAILY HYPOTHYROID 04/14/23 07/05/24 History Handicap placard #1 ea 08/12/23 Unknown Rx furosemide 40 mg tablet 40 mg PO DAILY EDEMA #90 TABLETS 06/30/24 Unknown Rx vit C 250 mg-vit E 90 mg-zinc 40 1 tab PO BID 06/30/24 Unknown History mg-copper 1 [id number] capsule (PreserVision AREDS-2) ferrous sulfate 325 mg (65 mg 325 mg PO BID #180 TABLETS 08/31/24 Unknown Rx iron) tablet atorvastatin 40 mg tablet 40 mg PO QHS #90 TABLETS 09/12/24 Unknown Rx potassium chloride 10 mEq 10 meq PO DAILY #90 TABLETS 09/12/24 Unknown Rx tablet,extended release nitroglycerin 0.4 mg sublingual 0.4 mg sublingual Q5-15M PRN CHEST 11/10/24 Unknown History tablet PAIN dapagliflozin propanediol 10 mg 10 mg PO QDAY #90 tabs 11/15/24 Unknown Rx tablet (Farxiga) lisinopril 10 mg tablet 10 mg PO DAILY #90 tabs 11/15/24 Unknown Rx spironolactone 25 mg tablet 25 mg PO DAILY #90 tabs 11/15/24 Unknown Rx digoxin 125 mcg (0.125 mg) tablet 125 mcg PO DAILY #90 tabs 02/06/25 Unknown Rx (Lanoxin) metoprolol succinate 100 mg 100 mg PO BID #180 tabs 02/06/25 Unknown Rx tablet,extended release 24 hr allopurinol 300 mg tablet 300 mg PO DAILY for gout pain #90 02/07/25 Unknown Rx TABLETS Allergy/AdvReac Type Severity Reaction Status Date / Time bee venom protein (honey Allergy Severe Anaphylaxis Verified 03/15/25 18:28 bee) (bee stings) venom-wasp protein Allergy Severe Anaphylaxis Verified 03/15/25 18:28 Family History Father CVA (cerebral vascular accident) Mother CAD (coronary artery disease) Hx of CABG CHF (congestive heart failure) S/P MVR (mitral valve replacement) Brother COPD (chronic obstructive pulmonary disease) Diabetes Cancer lung Grandfather Colon cancer Surgical History History of skin graft History of coronary artery stent placement History of left-sided carotid endarterectomy H/O hernia repair Hx of circumcision Hx of prostate biopsy (~03/23/23) History of left-sided carotid endarterectomy Status post carotid endarterectomy History of cardiac catheterization H/O local excision of skin lesion History of brain surgery History of left knee surgery History of tonsillectomy Postsurgical percutaneous transluminal coronary angioplasty (PTCA) status (03/21/22) Presence of stent in coronary artery (~01/22/11) Social History household members: spouse Smoking Status: Former smoker how long ago did patient quit smokin alcohol intake: never substance use type: does not use caffeine: Yes (3 servings per day) what type of physical activity do you participate in: walking frequency: daily ROS ROS ED Constitutional Constitutional ED: Denies chills or fever(s) ENT ENT ED: Reports epistaxis; Denies sore throat or throat swelling Cardiovascular Cardiovascular: Reports lightheadedness; Denies chest pain or syncope Respiratory/Chest Respiratory/Chest: Denies dyspnea Gastrointestinal Gastrointestinal: Denies abdominal pain, nausea or vomiting Integumentary Denies rash Neurologic Neurologic: Denies headache(s), paresthesias or weakness Hematologic/Lymphatic Hematologic/Lymphatic: Reports easy bleeding and easy bruising EXAM Physical Exam Const Vital Signs: 03/15/25 18:28 03/15/25 18:57 03/15/25 19:00 Temperature 97.8 F Temperature Source Temporal Pulse Rate 90 94 84 Pulse Rate [Lying] Pulse Rate [Sitting (for 1 minute prior to obtaining)] Respiratory Rate 16 17 Blood Pressure 120/102 H 138/57 H 137/59 H Blood Pressure [Lying] Blood Pressure [Sitting (for 1 minute prior to obtaining)] Blood Pressure [Standing (for 1 minute prior to obtaining)] Blood Pressure Mean 108 84 85 Blood Pressure Mean [Lying] Blood Pressure Mean [Sitting (for 1 minute prior to obtaining)] Blood Pressure Mean [Standing (for 1 minute prior to obtaining)] Pulse Ox 100 100 99 Oxygen Delivery Method Room Air Room Air 03/15/25 19:30 03/15/25 19:44 03/15/25 21:23 Temperature Temperature Source Pulse Rate 86 88 Pulse Rate [Lying] 90 Pulse Rate [Sitting (for 1 minute prior to obtaining)] 92 Respiratory Rate Blood Pressure 111/52 L 126/50 H Blood Pressure [Lying] 136/64 H Blood Pressure [Sitting (for 1 minute prior to obtaining)] 120/56 L Blood Pressure [Standing (for 1 minute prior to obtaining)] 101/47 L Blood Pressure Mean 71 75 Blood Pressure Mean [Lying] 88 Blood Pressure Mean [Sitting (for 1 minute prior to obtaining)] 77 Blood Pressure Mean [Standing (for 1 minute prior to obtaining)] 65 Pulse Ox 96 99 Oxygen Delivery Method 03/15/25 21:38 Temperature Temperature Source Pulse Rate 84 Pulse Rate [Lying] Pulse Rate [Sitting (for 1 minute prior to obtaining)] Respiratory Rate Blood Pressure 103/52 L Blood Pressure [Lying] Blood Pressure [Sitting (for 1 minute prior to obtaining)] Blood Pressure [Standing (for 1 minute prior to obtaining)] Blood Pressure Mean 69 Blood Pressure Mean [Lying] Blood Pressure Mean [Sitting (for 1 minute prior to obtaining)] Blood Pressure Mean [Standing (for 1 minute prior to obtaining)] Pulse Ox 97 Oxygen Delivery Method Room Air Positive well nourished and well developed General Appearance ED: well developed and NAD HEENT Reports moist mucous membranes HEENT Narrative: Clotted blood within the right naris, some fresh blood at the septum without active bleeding/streaming. Clotted blood without active bleeding throughout the posterior oropharynx. Lying supine speaking normally without stridor or difficulty. Eyes PERRL and EOMs intact bilaterally Neck supple Neck Narrative: F ROM Resp normal respiratory effort and clear to auscultation bilaterally Extremity normal to inspection Neuro oriented x3, CN's II-XII intact bilaterally and no sensory deficits noted Sensorium / Orientation: alert Motor Exam: strength 5/5 throughout Psych mental status grossly normal MDM MDM MDM Narrative Medical decision making narrative: Patient presents with what appears to be clinically acute anterior epistaxis, with the source fairly far anterior on the septum. There is no evidence of perforation. On initial exam, there is mild active bleeding, and the patient has multiple clots in the posterior oropharynx without active bleeding there. I had him blow his nose and expectorate clots to clear the area, which resulted in mild active bleeding from the septal source. We began treatment by placing a pledget of Paula mix after having him inhale 2.5 cc of it in aerosolized form into the right nostril. This provided good hemostasis, but upon rechecking?after removing the pledget and a small clot?there was continued mild active bleeding that precluded chemical cauterization. Therefore, we packed his nose with a piece of Surgicel placed against the affected area without pressure, which provided good hemostasis. This approach was chosen because the patient has a very sensitive nose due to previous surgery, and manipulating it further was extremely painful. Given that the source appeared anterior and the Surgicel provided good hemostasis, he is amenable to going home with instructions to leave it in place for at least three days and follow up with otolaryngology after the weekend. We discussed that he could remove it on his own, acknowledging the risk of recurrent bleeding, and reviewed how to address any bleeding should it recur. Because he complained of some lightheadedness, we performed orthostatic measurements, which were negative. We also checked his blood counts, which remain stable. His hemoglobin is 12.1, higher than last month?s 11.2, so it is stable for discharge. He is comfortable with this plan, and we discussed reasons for him to return. Lab Data Attestation: I reviewed the patient's lab results. Labs: Laboratory Results - last 24 hr 03/15/25 19:50 WBC 10.1 RBC 3.70 L Hgb 12.1 L Hct 35.1 L MCV 94.9 H MCH 32.7 H MCHC 34.5 RDW Std Deviation 48.1 H RDW Coeff of Esther 13.9 Plt Count 198 MPV 10.9 Immature Gran % (Auto) 0.300 Neut % (Auto) 74.6 H Lymph % (Auto) 13.7 L Sevier % (Auto) 9.7 Eos % (Auto) 1.2 Baso % (Auto) 0.5 Absolute Neuts (auto) 7.6 Absolute Lymphs (auto) 1.39 Nucleated RBC % 0 Discharge Plan Triage Chief Complaint: Nosebleed ED Provider: Guzman Del Cid Dx/Rx/DC Orders Clinical Impression: Acute anterior epistaxis, Anticoagulant long-term use, Antiplatelet or antithrombotic long-term use Instructions: ED Epistaxis (Adult) Prescriptions: No Action albuterol sulfate [ProAir HFA] 90 mcg/actuation HFA aerosol inhaler 2 puff INHALATION Q6H PRN (Reason: Wheezing) cholecalciferol (vitamin D3) 1,000 unit capsule 3,000 unit PO DAILY Spiriva Respimat 2.5 mcg/actuation mist 2 inh inhalation QAM Eliquis 5 mg tablet 5 mg PO BID levothyroxine 75 mcg capsule 75 mcg PO DAILY (DME) Handicap placard See Rx Instructions .Route .MEDSUPPLY Qty: 1 0RF Rx Instructions: Duration 5 years, Diagnosis CAD, Prostate CA ferrous sulfate 325 mg (65 mg iron) tablet 325 mg PO BID Qty: 180 1RF PreserVision AREDS-2 250-90-40-1 mg capsule 1 tab PO BID furosemide 40 mg tablet 40 mg PO DAILY Qty: 90 3RF nitroglycerin 0.4 mg tablet, sublingual 0.4 mg sublingual Q5-15M PRN (Reason: CHEST PAIN) pantoprazole 40 mg tablet,delayed release (DR/EC) 40 mg PO QDAY clopidogrel [Plavix] 75 mg tablet 75 mg PO QDAY Patient Comments: SEE NOTES potassium chloride 10 mEq tablet extended release 10 meq PO DAILY Qty: 90 3RF atorvastatin 40 mg tablet 40 mg PO QHS Qty: 90 3RF spironolactone 25 mg tablet 25 mg PO DAILY Qty: 90 3RF lisinopril 10 mg tablet 10 mg PO DAILY Qty: 90 3RF dapagliflozin propanediol [Farxiga] 10 mg tablet 10 mg PO QDAY Qty: 90 3RF digoxin [Lanoxin] 125 mcg (0.125 mg) tablet 125 mcg PO DAILY Qty: 90 2RF metoprolol succinate 100 mg tablet extended release 24 hr 100 mg PO BID Qty: 180 1RF allopurinol 300 mg tablet 300 mg PO DAILY Qty: 90 1RF Primary Care Provider: Humphrey Maher Referrals: Lisandro Mitchell MD [Med Staff - Active Staff, Ear Nose Throat (ENT)] - 03/20/25 Referral Note: call Fri for appt Activity Restrictions/Additional Instructions: - Leave the Surgicel packing in your right nostril in place for at least 3 days. - You may carefully remove the packing yourself after 3 days if needed, understanding there is a risk of the bleeding restarting. Alternatively, you may schedule a follow-up appointment with an ear, nose, and throat (ENT) specialist to be seen after the weekend to have the packing assessed and removed. - If you have heavy bleeding you cannot control or you become lightheaded or faint, go to the emergency department or return to the clinic immediately. Print Language: Malay Disposition Disposition: Home, Self Care
[2025-03-15 20:02] LABS: Hematocrit 35.1 % (40-54); Hemoglobin 12.1 g/dL (13.0-16.5); Immature Granulocytes Count 0.030 X10^3/uL (0.0-0.0); Mean Corp Hgb Conc 34.5 g/dL (32-36); Mean Corpuscular Volume 94.9 fL (80-94); Mean Platelet Vol. 10.9 fl (6.2-12.0); NRBC Flagged by Analyzer 0 % (0-5); Platelet Count 198 K/mm3 (150-450); RBC Distribution Width CV 13.9 % (11.6-14.6); RBC Distribution Width SD 48.1 fl (35.1-43.9); Red Blood Count 3.70 M/mm3 (4.6-6.2); White Blood Count 10.1 K/mm3 (4.4-11.0)
[2025-03-15] MEDS: Mixture 30 ML Bottle TOPICAL (21:55)
== END 2025-03-15 21:57 | disposition home or self-care (01) ==
PROVIDERS: Emergency Provider Emergency Medicine; PCP Family Medicine; Visit Provider Emergency Medicine
DX: R04.0 Epistaxis (principal); R42 Dizziness and giddiness; Z79.01 Long term (current) use of anticoagulants; Z87.891 Personal history of nicotine dependence; Z95.5 Presence of coronary angioplasty implant and graft
CPT/HCPCS: 30901; 85025; 99283